=== PATIENT | female | born 1950 | race Caucasian/White ===

== ENCOUNTER 2023-05-31 05:46 | Emergency (ER) | payer MEDICARE, SELFPAY ==
[2023-05-31] VITALS (11 sets, daily range): BP systolic 89–144; BP diastolic 56–99; BMI 21.1
--- NOTE | 2023-05-31 06:32 | ED.GENMED ---
History of Present Illness
General
Chief Complaint: Swelling
Source: patient
Exam Limitations: none
Time Seen by Provider: 05/31/23 06:07
Travel History
Have you had any contact with someone who has COVID-19?: No
Do you have any symptoms of coronavirus? Fever > 100 degrees, chills, cough, shortness of breath, sore throat, loss of taste or smell, muscle aches, or headache?: No
History of Present Illness
History of Present Illness:
72-year-old female complaining of significant drainage right greater than left leg the last few days. Some mild ache to the right leg. Has been on prednisone recently for respiratory issues. Currently on 20 extra milligrams. Takes 10 mg at
baseline. Also complaining of some general headache. Denies chest pain shortness of breath fever.
Past History
Past History
ED Past Medical History: COPD and Other (anemia, RA,)
ED Past Surgical History: , Gynecological, Orthopedic and Other (Dental surgery)
Social History
Tobacco: Former smoker
Personal:
Review of Systems
Review of Systems
All Other Systems: Not applicable
Respiratory: Reports no symptoms
Cardiac: Reports no symptoms
ABD/GI: Reports no symptoms
Phy Exam
Physical Exam
Physical Exam:
GENERAL: Alert and oriented in no apparent distress. Currently on a 2 L nasal cannula
EYE: Orbits normal.
NECK: Supple
CARDIAC: Regular rate and rhythm without any obvious murmurs.
LUNGS: No respiratory distress. Distant. No wheezing or rhonchi
ABDOMEN: Soft, without focal tenderness or distention
NEUROLOGICAL: Alert and oriented , grossly non-focal
SKIN: Warm and dry, no rash or lesion, no discoloration, skin intact.
MUSCULOSKELETAL: Shininess and no hair to either lower extremity. Chronic venous changes. Small open wound anteriorly to the left leg with a scab. No drainage from this wound. Right leg has significant bruising serous in nature. In addition the
right foot is cool compared to the left with pallor. However there are Doppler pulses posterior tibial and dorsalis pedis bilaterally. Right leg is weaker than the left.
PSYCH: Normal and appropriate interaction.
Scores
Heart Failure Risk
Heart Failure Risk Score: Not Applicable
Course
Orders/Labs/Results
Orders:
Orders
05/31/23 06:21
IV Insert/Care/Rem.- Treatment PRN
CXR2 [CR Chest - 2 Views ] Urgent
Comment:
Reason For Exam: lower ext. swelling
05/31/23 06:22
CT Head W/o Iv Contrast Urgent
Comment:
Reason For Exam: CEBALLOS
05/31/23 06:28
Basic Metabolic Panel Urgent
Complete Blood Count/With Diff Urgent
05/31/23 06:55
US Periph Art LOWER Ext Ltd Urgent
Reason For Exam: Coolness paleness right lower extremity
US Periph Venous LOWER Ext [place] Urgent
Comment:
Reason For Exam: swelling/drainage
05/31/23 07:01
Acetaminophen [Tylenol] 650 mg PO NOW STA
05/31/23 13:59
Add On- LAB Urgent
Tests Added?: theophylline level
05/31/23 14:58
Doxycycline [Vibramycin] 100 mg PO NOW STA
05/31/23 14:59
Furosemide [Lasix] 40 mg IV ONCE ONE
Abnormal Lab Results
05/31/23
06:28
RBC 4.09 L 10^6/uL
(4.20-5.40)
MCHC 31.2 L g/dL
(33.0-37.0)
MPV 10.7 H fL
(7.4-10.4)
Absolute Lymphs (auto) 0.6 L 10^3/uL
(1.2-3.4)
Absolute Monos (auto) 1.2 H 10^3/uL
(0.1-0.6)
Lymphocytes % 7.6 L %
(20.5-51.1)
Monocytes % 14.9 H %
(1.7-9.3)
Carbon Dioxide 37 H mmol/L
(22-30)
BUN 24 H mg/dl
(7-17)
Creatinine 0.4 L mg/dL
(0.6-1.0)
Glucose 142 H mg/dl
(70-99)
05/31/23 06:28
05/31/23 06:28
Vital Signs
Initial and Last Documented VS:
Initial Vital Signs
Temp Pulse Resp BP Pulse Ox
97.8 F 120 24 144/78 95
05/31/23 05:49 05/31/23 05:49 05/31/23 05:49 05/31/23 05:49 05/31/23 05:49
Last Documented Vital Signs
Temp Pulse Resp BP Pulse Ox
97.8 F 120 24 142/99 99
05/31/23 05:49 05/31/23 05:49 05/31/23 05:49 05/31/23 14:04 05/31/23 14:54
*Critical Care Note
Total Time (30-74mins, 75-104mins- exclusive of procedures): Not Applicable
Update Note
Update Note:
Interestingly patient's leg edema is much improved and the lower foot is warm. Arterial studies okay. Venous studies negative. No obvious infectious issue although there is some very minimal erythema at one border. Most of it is chronic
hyperpigmentation. No indication for admission. Patient will increase her torsemide for the next 3 days. Will give her a dose of IV Lasix. With antibiotics and follow-up with the lymphedema clinic
ED Attending Note
-
Portions of this chart may have been created with voice recognition software.� Occasional wrong word or��sound alike� substitutions may have occurred due to the inherent limitations of voice recognition software.
Discharge Plan
Departure
Patient Disposition: Home (Routine Discharge)
Date of Disposition: 05/31/23
Time of Disposition: 15:00
Patient with high blood pressure during this ER visit?: Yes
Discharge Problem:
Peripheral lymphedema, History of COPD
Instructions: Dependent Edema (DC), BLOOD PRESSURE
Prescriptions:
New
doxycycline hyclate 100 mg capsule
100 mg PO BID 10 Days Qty: 20 0RF
Referrals:
Odalis Maldonado, [Family Provider] - Follow up in 2-3 days
Activity Restrictions/Additional Instructions:
As we discussed, call the lymphedema clinic tomorrow for close follow-up
Keep your legs elevated is much as you can
Take the torsemide twice per day for the next 3 days
Interventions
Interventions:
*Risk Screen - Suicide Last Done: 05/31/23 05:49
*General Assessment Last Done: 05/31/23 07:10
*Neglect/Abuse Screening Last Done: 05/31/23 05:49
*ED COVID-19 Vaccine History Last Done: 05/31/23 06:35
ED- Cardiac Assessment Last Done: 05/31/23 06:31
ED- Neurological Assessment Last Done: 05/31/23 06:31
ED- Pulmonary Assessment Last Done: 05/31/23 06:31
ED-Skin Assessment Last Done: 05/31/23 06:31
[2023-05-31 06:48] LABS: % Basophils 0.7 % (0-2); % Eosinophils 1.6 % (0-6); % Immature Granulocytes 0.5 % (0-0.5); % Lymphocytes 7.6 % (20.5-51.1); % Monocytes 14.9 % (1.7-9.3); % Neutrophils 74.7 % (42.2-75.2); Absolute Basophils 0.1 10^3/uL (0-0.2); Absolute Eosinophils 0.1 10^3/uL (0-0.7); Absolute Lymphocytes 0.6 10^3/uL (1.2-3.4); Absolute Monocytes 1.2 10^3/uL (0.1-0.6); Hematocrit 39.8 % (37.0-47.0); Hemoglobin 12.4 g/dL (12.0-16.0); Mean Corp Hgb Conc. 31.2 g/dL (33.0-37.0); Mean Corpuscular Hgb 30.3 pg (27.0-31.0); Mean Corpuscular Volume 97.3 fL (81.0-99.0); Mean Platelet Volume 10.7 fL (7.4-10.4); Nucleated Red Blood Cells % 0 %; Platelet Count 145 10^3/uL (130-400); Red Blood Cell Count 4.09 10^6/uL (4.20-5.40); Red Cell Dist. Width 14.1 % (11.5-14.5)
[2023-05-31 07:02] LABS: Blood Urea Nitrogen 24 mg/dl (7-17); Chloride 99 mmol/L (98-107); Estimated Creatinine Clearance 62 ml/min; Glucose 142 mg/dl (70-99); Sodium 138 mmol/L (135-145); eGFR > 60.00
[2023-05-31 07:13] LABS: Carbon Dioxide 37 mmol/L (22-30)
[2023-05-31] MEDS: TYLENOL 650 MG PO (07:39)
[2023-05-31] MEDS: VIBRAMYCIN 100 MG PO (15:10)
[2023-05-31] MEDS: LASIX 40 MG IV (15:10)
--- NOTE | 2023-05-31 15:18 | PTCARENOTE ---
Patient discharged, this RN was removing this patient's IV and tegaderm. This RN removed tegaderm as slowly and as carefully as possible while holding pressure on the skin to attempt prevent skin tear. While removing, this patient expressed concern
for a skin tear. This RN stopped removing the tegaderm and asked the patient if she wanted this RN to keep tegaderm on or if she had any suggestions of another way to remove the tegaderm. This RN expressed that the tegaderm was being removed as
carefully and slowly as possible but open to suggestions. She said 'I guess if you need to remove the IV you have to keep going then.' After removing the tegaderm, there was a skin tear and patient became very upset and agitated demanding to see a
doctor. Patient claimed that this RN did not stop removing the tegaderm when asked to. It was explained to patient that this RN did the best to prevent a skin tear and did pause when asked to, and that it was not intentional. She than aggressively
told her to take a picture of the skin tear. Patient states that she needs wound care now and demanded that the doctor look at the skin care. This RN told the patient that a doctor will be in to take a look at the skin tear and walked out of
the room. Dr. Burnette at bedside now. This RN will ask that another RN to assume patient care until discharge, and alert charge nurse.
== END 2023-05-31 16:57 | disposition home or self-care (01) ==
LOC: EMR 05:46
PROVIDERS: EMERGENCY PHYSICIAN Emergency Medicine; FAMILY PHYSICIAN Family Medicine
DX: I89.0 Lymphedema, not elsewhere classified (principal); J44.9 Chronic obstructive pulmonary disease, unspecified; Z87.891 Personal history of nicotine dependence
CPT/HCPCS: 99284; 96374; 70450; 71046; 80048; 85025; 93926; 93970

== ENCOUNTER 2023-06-06 15:11 | Emergency (ER) | payer MEDICARE, SELFPAY ==
[2023-06-06 15:45] VITALS: BP 128/67
[2023-06-06 16:16] LABS: % Basophils 0.6 % (0-2); % Eosinophils 1.8 % (0-6); % Immature Granulocytes 0.5 % (0-0.5); % Monocytes 14.4 % (1.7-9.3); % Neutrophils 77.7 % (42.2-75.2); Absolute Basophils 0.1 10^3/uL (0-0.2); Absolute Eosinophils 0.1 10^3/uL (0-0.7); Absolute Lymphocytes 0.4 10^3/uL (1.2-3.4); Absolute Monocytes 1.2 10^3/uL (0.1-0.6); Absolute Neutrophils 6.2 10^3/uL (1.4-6.5); Hematocrit 36.9 % (37.0-47.0); Hemoglobin 11.7 g/dL (12.0-16.0); Mean Corp Hgb Conc. 31.7 g/dL (33.0-37.0); Mean Corpuscular Hgb 30.8 pg (27.0-31.0); Mean Corpuscular Volume 97.1 fL (81.0-99.0); Mean Platelet Volume 10.1 fL (7.4-10.4); Nucleated Red Blood Cells % 0 %; Platelet Count 145 10^3/uL (130-400)
[2023-06-06 16:30] LABS: ALT (SGPT) 34 U/L (0-35); AST (SGOT) 39 U/L (14-36); Albumin 3.3 g/dl (3.5-5.0); Alkaline Phosphatase 93 U/L (38-126); Blood Urea Nitrogen 20 mg/dl (7-17); Calcium 8.8 mg/dl (8.4-10.2); Carbon Dioxide 38 mmol/L (22-30); Chloride 99 mmol/L (98-107); Glucose 133 mg/dl (70-99); Potassium 3.7 mmol/L (3.5-5.1); Sodium 140 mmol/L (135-145); Total Bilirubin 0.4 mg/dl (0.2-1.3); Total Protein 5.2 g/dl (6.3-8.2); eGFR > 60.00
[2023-06-06 16:39] LABS: NT-proBNP 246 pg/ml
[2023-06-06 19:50] VITALS: BP 158/79; BMI 21.7
[2023-06-06 20:00] VITALS: BP 152/82
[2023-06-06 21:00] VITALS: BP 113/60
--- NOTE | 2023-06-06 21:15 | EDRN ---
Report recieved, patients asking the plan, informed them waiting on Ed, PA to look over results and plan
[2023-06-06 22:00] VITALS: BP 174/75
--- NOTE | 2023-06-06 22:15 | EDRN ---
Ed, PA in at bedside speaking with family about plan.
--- NOTE | 2023-06-06 22:29 | ED.GENMED ---
History of Present Illness
General
Chief Complaint: Fall
Source: patient
Exam Limitations: none
Time Seen by Provider: 06/06/23 19:08
Nursing documentation reviewed up to this point in time: agreed with
Travel History
Have you had any contact with someone who has COVID-19?: No
Do you have any symptoms of coronavirus? Fever > 100 degrees, chills, cough, shortness of breath, sore throat, loss of taste or smell, muscle aches, or headache?: No
History of Present Illness
History of Present Illness:
72-year-old female with past medical history of COPD migraines presenting to the emergency department today with concerns of right-sided leg discomfort. Did feel some discomfort to the right calf region some mild discomfort when walking. Claims
that she may have injured this with a ground-level fall a few days ago. Denies any head trauma neck pain numbness weakness or additional concerns otherwise
Past History
Past History
ED Past Medical History: COPD and Other (anemia, RA,)
ED Past Surgical History: , Gynecological, Orthopedic and Other (Dental surgery)
Social History
Tobacco: Former smoker
Personal:
Review of Systems
Review of Systems
Allergies reviewed?: Yes
All Other Systems: ROS reviewed and negative except as documented in HPI and ROS
Phy Exam
Physical Exam
Physical Exam:
GENERAL: Alert , in no apparent distress
EYE: pupils equal and reactive
NECK: Supple, no significant adenopathy.
ENT: o/p clr, mmm.
CARDIAC: Regular rate and rhythm .
LUNGS: Clear breath sounds bilaterally, no acute respiratory distress, no wheezes/rales/rhonchi
ABDOMEN: Soft, without focal tenderness, no r/g, no cvat
NEUROLOGICAL: Alert and oriented, no focal neuro deficits
SKIN: Warm and dry, skin intact.
MUSCULOSKELETAL: Discomfort to the right gastrocnemius Achilles intact, good range of motion of the ankle and knee. Swelling symmetrical bilaterally., well perfused.
PSYCH: Normal and appropriate interaction.
Course
Orders/Labs/Results
Orders:
Orders
06/06/23 15:52
Tib/Fib, Right 2 View [CR Leg Tibia/fibula Right 2 Vw] Urgent
Comment:
Reason For Exam: pain after a fall
06/06/23 15:58
Complete Blood Count/With Diff Urgent
Comprehensive Metabolic Panel Urgent
Pro-BNP [NT-proBNP] Urgent
Abnormal Lab Results
06/06/23
15:58
RBC 3.80 L 10^6/uL
(4.20-5.40)
Hgb 11.7 L g/dL
(12.0-16.0)
Hct 36.9 L %
(37.0-47.0)
MCHC 31.7 L g/dL
(33.0-37.0)
Absolute Lymphs (auto) 0.4 L 10^3/uL
(1.2-3.4)
Absolute Monos (auto) 1.2 H 10^3/uL
(0.1-0.6)
Neutrophils % 77.7 H %
(42.2-75.2)
Lymphocytes % 5.0 L %
(20.5-51.1)
Monocytes % 14.4 H %
(1.7-9.3)
Carbon Dioxide 38 H mmol/L
(22-30)
BUN 20 H mg/dl
(7-17)
Creatinine 0.3 L mg/dL
(0.6-1.0)
Glucose 133 H mg/dl
(70-99)
AST 39 H U/L
(14-36)
Total Protein 5.2 L g/dl
(6.3-8.2)
Albumin 3.3 L g/dl
(3.5-5.0)
01/27/24 15:58
06/06/23 15:58
Vital Signs
Initial and Last Documented VS:
Initial Vital Signs
Temp Pulse Resp BP Pulse Ox
98.0 F 111 20 128/67 98
06/06/23 15:45 06/06/23 15:45 06/06/23 15:45 06/06/23 15:45 06/06/23 15:45
Last Documented Vital Signs
Temp Pulse Resp BP Pulse Ox
98.0 F 105 20 174/75 97
06/06/23 15:45 06/06/23 20:01 06/06/23 15:45 06/06/23 22:00 06/06/23 22:26
MDM/Problems Addressed
MDM/Problems Addressed:
72-year-old female presenting to the emergency department today with concerns of right-sided calf discomfort after ground-level fall few days ago denies additional injuries. Does have tenderness to the gastrocnemius but Achilles intact x-ray
without signs of fracture good range of motion at the knee and ankle. Patient without emergent findings. Labs were obtained that showed findings consistent with chronic abnormalities that she has had in the past. Otherwise stable for outpatient
management return precautions given.
*Critical Care Note
Total Time (30-74mins, 75-104mins- exclusive of procedures): Not Applicable
ED Attending Note
-
Portions of this chart may have been created with voice recognition software.� Occasional wrong word or��sound alike� substitutions may have occurred due to the inherent limitations of voice recognition software.
Discharge Plan
Departure
Patient Disposition: Home (Routine Discharge)
Date of Disposition: 06/06/23
Time of Disposition: 22:29
Patient with high blood pressure during this ER visit?: No
Condition: Good
Covid-19: Not Applicable
Discharge Problem:
Gastrocnemius muscle strain
Instructions: Muscle Strain (DC)
Prescriptions:
No Action
doxycycline hyclate 100 mg capsule
100 mg PO BID 10 Days Qty: 20 0RF
Referrals:
Odalis Maldonado DO [Family Provider] -
Activity Restrictions/Additional Instructions:
You came to the emergency department today with concerns of right-sided leg discomfort. Your x-ray did not show any fracture or bony injury. You had a reassuring examination. Please ambulate as tolerated and follow up with orthopedics. Return to
the emergency department any worsening, new or concerning symptoms.
Interventions
Interventions:
*Nursing Disposition Last Done: 06/06/23 23:18
ED-Musculoskeletal Assessment Last Done: 06/06/23 19:51
ED- Neurological Assessment Last Done: 06/06/23 19:51
ED-Skin Assessment Last Done: 06/06/23 19:51
Discharge Date and Time
Discharge Date/Time: 06/06/23 23:19
== END 2023-06-06 23:19 | disposition home or self-care (01) ==
LOC: EMR 15:11
PROVIDERS: Student in an Organized Health Care Education/Training Program; EMERGENCY PHYSICIAN Emergency Medicine; FAMILY PHYSICIAN Family Medicine
DX: S76.911A Strain of unspecified muscles, fascia and tendons at thigh level, right thigh, initial encounter (principal); W19.XXXA Unspecified fall, initial encounter; Y93.01 Activity, walking, marching and hiking; J44.9 Chronic obstructive pulmonary disease, unspecified; D64.9 Anemia, unspecified; M06.9 Rheumatoid arthritis, unspecified; Z87.891 Personal history of nicotine dependence
CPT/HCPCS: 99283; 73590; 80053; 83880; 85025

== ENCOUNTER 2023-06-11 16:06 | Emergency (ER) | payer MEDICARE, SELFPAY ==
[2023-06-11 16:07] VITALS: BP 153/87
[2023-06-11 16:48] VITALS: BP 143/72; BMI 21.7
[2023-06-11 17:00] VITALS: BP 165/87
--- NOTE | 2023-06-11 17:23 | ED.GENMED ---
History of Present Illness
General
Chief Complaint: Fall
Source: patient and records
Time Seen by Provider: 06/11/23 16:38
Travel History
Have you had any contact with someone who has COVID-19?: No
Do you have any symptoms of coronavirus? Fever > 100 degrees, chills, cough, shortness of breath, sore throat, loss of taste or smell, muscle aches, or headache?: No
History of Present Illness
History of Present Illness:
2-year-old female with past medical history of COPD presenting to the emergency department for a multitude of concerns centered around an accidental fall last night while she was sitting on the toilet changing the dressings on her lower extremities
and accidentally fell forward into the shower door injuring the left frontal scalp. Patient notes some bruising around the affected area but otherwise denies any loss consciousness, vomiting, visual changes, focal weakness or numbness. Patient
does note a 'migraine headache' but states that this is a typical headache for her and she is attributing it to stress related to current family related issues. Patient notes she also sustained abrasion/skin tear to the left upper extremity around
the lower humeral region and elbow. Patient does note 1/3 concern of lower extremity edema with clear fluid weeping which has been ongoing for the last few days, patient notes that she was seen in the emergency department about a week and a half
ago for this and was worked up without any specific etiology and it was thought to be related to lymphedema. Patient increased her torsemide at home and was given an IV dose of Lasix in the emergency department. She does note that she has been
covering the lower extremities with bags in order to contain the fluid weeping. Patient notes that the weeping has not gotten any better or worse and it is mostly unchanged.
Past History
Past History
ED Past Medical History: COPD and Other (anemia, RA,)
ED Past Surgical History: , Gynecological, Orthopedic and Other (Dental surgery)
Social History
Tobacco: Former smoker
Alcohol: None
Drug: None
Personal:
Living: with family
Review of Systems
Review of Systems
All Other Systems: ROS reviewed and negative except as documented in HPI and ROS
Phy Exam
Physical Exam
Physical Exam:
GENERAL: Alert , in no apparent distress, ambulatory with steady gait
Head: Small contusion left frontal scalp with no breaks in the skin
EYE: Clear conjunctiva
NECK: Supple
ENT: o/p clr, mmm.
CARDIAC: Regular rate and rhythm .
LUNGS: Clear breath sounds bilaterally, no acute respiratory distress, no wheezes/rales/rhonchi
ABDOMEN: Soft, without focal tenderness, no r/g, no cvat
NEUROLOGICAL: Alert and oriented, ambulates with a steady gait
SKIN: Warm and dry, bilateral lower extremity edema with loss of hair, various small to moderate-sized superficial wounds on the bilateral lower extremities. Right lower extremity has clear weeping fluid from the anterior surface of the leg. The
lower extremities are dusky in appearance bilaterally. Dressing over the distal humeral region
MUSCULOSKELETAL: Cap refill less than 2 seconds. Sensation grossly intact to light touch.
PSYCH: Normal and appropriate interaction.
Scores
Heart Failure Risk
Heart Failure Risk Score: Not Applicable
Heart Score for Chest Pain Patients
STEMI patient?: Not applicable
Withdrawal Assessment of Alcohol
Withdrawal Assessment Completed?: Not applicable
Course
Orders/Labs/Results
Orders:
Orders
06/11/23 16:55
EKG [Electrocardiogram (*1)] Urgent
Reason for Study: Tachycardia
EKG- Treatment ONCE
06/11/23 16:57
CT Head W/o Iv Contrast Urgent
Comment:
Reason For Exam: fall, head injury, contusion left frontal scalp
06/11/23 17:06
CR Elbow - Left Min 3 Views Urgent
Comment:
Reason For Exam: fall, pain
CR Humerus - Left Min 2 Views* Urgent
Comment:
Reason For Exam: fall, injury
06/11/23 17:44
Basic Metabolic Panel Urgent
06/11/23 18:36
Sling Left-Treatment ONCE
Abnormal Lab Results
06/11/23
17:44
Carbon Dioxide 35 H mmol/L
(22-30)
BUN 23 H mg/dl
(7-17)
Creatinine 0.4 L mg/dL
(0.6-1.0)
Glucose 120 H mg/dl
(70-99)
06/11/23 17:44
Vital Signs
Initial and Last Documented VS:
Initial Vital Signs
Temp Pulse Resp BP Pulse Ox
98.4 F 127 22 153/87 98
06/11/23 16:07 06/11/23 16:07 06/11/23 16:07 06/11/23 16:07 06/11/23 16:07
Last Documented Vital Signs
Temp Pulse Resp BP Pulse Ox
98.4 F 113 20 149/89 99
06/11/23 16:07 06/11/23 19:00 06/11/23 19:00 06/11/23 18:39 06/11/23 18:45
Stripping And Booking Machine Operator consulted with Physician
Stripping And Booking Machine Operator consulted with physician?: Yes
Name of Physician Consulted: Tereso
MDM/Problems Addressed
Differential Diagnosis Includes:
Superficial head injury, minimal concern for intracranial pathology or calvarial fracture, chronic venous stasis, chronic lymphedema, I do not have concern for DVT or acute arterial complication given patient had an ultrasound and arterial studies
done of the left lower extremity less than 10 days ago without any significant pathology found.
MDM/Problems Addressed:
72-year-old female presenting to the emergency department for a multitude of symptoms but her main concern was due to the head injury sustained an accidental fall last night. Overall I do suspect a minor head injury without any significant
complication. Will also obtain an x-ray of the upper extremity at patient's request as I am not very concerned for fracture given patient has full range of motion and has not had any significant pain to the left upper extremity. Will check a BMP
to make sure patient does not have any electrolyte disturbances given her fluid overload as well as increase in her diuretics. Patient was also noted to be tachycardic and an EKG was done for this.
Chronic conditions affecting care: COPD and Other (Chronic lymphedema)
Acute Exacerbation and/or Progression of Chronic Illness: Other (Chronic lymphedema)
*Radiology
Radiology exam reviewed: radiology read reviewed
*Pulse Oximetry
Patient hypoxic: no
*EKG
Interpreted by ED Provider?: Yes
Comparison EKG: no comparison EKG present
Heart Rate: 115
Rate: tachycardiac
Rhythm: sinus and PAC's
[place]: normal axis
Ischemia: no ischemia
*Box Car Washer Interpretation
Rate: tachycardiac
Rhythm: sinus and PAC's
*Critical Care Note
Total Time (30-74mins, 75-104mins- exclusive of procedures): Not Applicable
Data Reviewed
Review of Other/Old Records Reveals: Labs, Records and Radiology Studies
Patient Management
Escalation/DeEscalation of care consider admission/obs:
Patient CT imaging without any acute pathology. Her x-ray of the elbow does show a questionable humeral head avulsion injury. Will place in a sling for comfort. I did advise patient to follow-up as scheduled with the lymphedema clinic. She will
follow-up with her orthopedist. She will also continue following with the wound care center. Aware of return precautions but otherwise stable for discharge home.
ED Attending Note
-
Portions of this chart may have been created with voice recognition software.� Occasional wrong word or��sound alike� substitutions may have occurred due to the inherent limitations of voice recognition software.
Discharge Plan
Departure
Patient Disposition: Home (Routine Discharge)
Date of Disposition: 06/11/23
Time of Disposition: 18:37
Patient with high blood pressure during this ER visit?: Yes
Discharge Problem:
Accidental fall, radial head avulsion fracture left, Contusion of scalp, Lymphedema
Prescriptions:
No Action
doxycycline hyclate 100 mg capsule
100 mg PO BID 10 Days Qty: 20 0RF
Referrals:
UNKNOWN - PT DOES,NOT KNOW [Unknown Provider] -
Interventions
Interventions:
*Risk Screen - Suicide Last Done: 06/11/23 16:57
*General Assessment Last Done: 06/11/23 16:07
*Neglect/Abuse Screening Last Done: 06/11/23 17:18
ED- Fall Risk Assessment Last Done: 06/11/23 16:57
*ED COVID-19 Vaccine History Last Done: 06/11/23 16:07
ED-Musculoskeletal Assessment Last Done: 06/11/23 16:52
ED- Neurological Assessment Last Done: 06/11/23 16:52
ED-Skin Assessment Last Done: 06/11/23 16:57
[2023-06-11 18:06] LABS: Blood Urea Nitrogen 23 mg/dl (7-17); Calcium 8.5 mg/dl (8.4-10.2); Chloride 98 mmol/L (98-107); Estimated Creatinine Clearance 62 ml/min; Glucose 120 mg/dl (70-99); Potassium 4.1 mmol/L (3.5-5.1); Sodium 138 mmol/L (135-145); eGFR > 60.00
[2023-06-11 18:17] LABS: Carbon Dioxide 35 mmol/L (22-30)
[2023-06-11 18:39] VITALS: BP 149/89
== END 2023-06-11 19:30 | disposition home or self-care (01) ==
LOC: EMR 16:06
PROVIDERS: Physician Assistant Medical; EMERGENCY PHYSICIAN Emergency Medicine; FAMILY PHYSICIAN Family Medicine
DX: S52.122A Displaced fracture of head of left radius, initial encounter for closed fracture (principal); S00.03XA Contusion of scalp, initial encounter; I89.0 Lymphedema, not elsewhere classified; W19.XXXA Unspecified fall, initial encounter; J44.9 Chronic obstructive pulmonary disease, unspecified; D64.9 Anemia, unspecified; M06.9 Rheumatoid arthritis, unspecified; Z87.891 Personal history of nicotine dependence
CPT/HCPCS: 99284; 70450; 73060; 73080; 80048; 93005

== ENCOUNTER 2023-06-26 23:42 | Inpatient (IN) | payer MEDICARE, SELFPAY ==
[2023-06-26 18:54] VITALS: BMI 22.0
[2023-06-26 18:58] VITALS: BP 125/81
[2023-06-26 19:20] LABS: % Basophils 0.8 % (0-2); % Eosinophils 0.8 % (0-6); % Immature Granulocytes 1.2 % (0-0.5); % Lymphocytes 4.7 % (20.5-51.1); % Monocytes 9.1 % (1.7-9.3); % Neutrophils 83.4 % (42.2-75.2); Absolute Basophils 0.1 10^3/uL (0-0.2); Absolute Eosinophils 0.1 10^3/uL (0-0.7); Absolute Immature Granulocytes 0.2 10^3/uL (0-0.05); Absolute Lymphocytes 0.7 10^3/uL (1.2-3.4); Absolute Monocytes 1.3 10^3/uL (0.1-0.6); Absolute Neutrophils 11.9 10^3/uL (1.4-6.5); Hematocrit 36.8 % (37.0-47.0); Hemoglobin 11.4 g/dL (12.0-16.0); Mean Corpuscular Hgb 30.8 pg (27.0-31.0); Mean Corpuscular Volume 99.5 fL (81.0-99.0); Mean Platelet Volume 9.6 fL (7.4-10.4); Nucleated Red Blood Cells % 0 %; Platelet Count 250 10^3/uL (130-400); Red Cell Dist. Width 14.1 % (11.5-14.5); White Blood Cell Count 14.2 10^3/uL (4.8-10.8)
[2023-06-26 19:39] LABS: ALT (SGPT) 26 U/L (0-35); AST (SGOT) 33 U/L (14-36); Albumin 3.2 g/dl (3.5-5.0); Alkaline Phosphatase 135 U/L (38-126); Blood Urea Nitrogen 19 mg/dl (7-17); Calcium 8.8 mg/dl (8.4-10.2); Chloride 95 mmol/L (98-107); Glucose 230 mg/dl (70-99); Potassium 4.4 mmol/L (3.5-5.1); Sodium 134 mmol/L (135-145); Total Bilirubin 0.5 mg/dl (0.2-1.3); Total Protein 5.3 g/dl (6.3-8.2); eGFR > 60.00
[2023-06-26 19:43] LABS: NT-proBNP 374 pg/ml; Troponin I < 0.012 ng/ml
[2023-06-26 19:49] LABS: Carbon Dioxide 36 mmol/L (22-30)
[2023-06-26 20:34] VITALS: BP 128/60
[2023-06-26 21:00] VITALS: BP 100/47
--- NOTE | 2023-06-26 21:20 | ED.GENMED ---
History of Present Illness
General
Chief Complaint: Swelling
Source: patient
Exam Limitations: none
Time Seen by Provider: 06/26/23 20:34
Travel History
Have you had any contact with someone who has COVID-19?: No
Do you have any symptoms of coronavirus? Fever > 100 degrees, chills, cough, shortness of breath, sore throat, loss of taste or smell, muscle aches, or headache?: No
History of Present Illness
History of Present Illness:
This is a 72 year old female that comes in with c/o bleeding from the left lower leg. States that she was at the [facility] twice in the past month. states that there is a lot of fluid build up on her legs and he wanted her to come to the
hospital. Sate that she does not want to come to the hospital as her daughter is in [facility] and has been very sick for the past 2 months. States that she was put on Lorazepam 2mg QID but she only takes this daily. Today she sent to change
the bandages on her legs when she started to have bleeding from the left lower leg. States that this happened 2 weeks ago. States that it took her over an hour to get the bleeding to stop. States that the [employer] Artist also put her on Keflex as he
thought the right leg looked infected. States that she started this 2 days ago. States that she has had a headache and she is always SOB. Denies any fever, chills, chest pain, abd pain, nausea, vomiting, diarrhea, dizziness, urinary burning.
Past History
Past History
ED Past Medical History: COPD (emphysema) and Other (anemia, RA, Migraines, )
ED Past Surgical History: , Gynecological (Hysterectomy, Fibroid removed, ), Orthopedic (Right wrist surgery, Left tibial fracture) and Other (Dental surgery cataracts, )
Social History
Tobacco: Former smoker
Alcohol: None
Drug: None
Personal:
Living: with family
Review of Systems
Review of Systems
All Other Systems: ROS reviewed and negative except as documented in HPI and ROS
Constitutional: Reports no symptoms; Denies fever or chills
EENT: Reports no symptoms
Respiratory: Reports trouble breathing; Denies cough
Cardiac: Reports no symptoms; Denies chest pain
ABD/GI: Reports no symptoms; Denies abdominal pain, nausea, vomiting or diarrhea
: Reports no symptoms; Denies dysuria, frequency or urgency
Musculoskeletal: Reports edema (Chronic leg edema)
Skin: Reports other (bleeding from left lower leg)
Neurological: Reports headache; Denies dizzy
Psychiatric: Reports no symptoms
Phy Exam
General Physical Exam
General Presentation: no apparent distress
General age: appears stated age
General Skin: warm and dry
General Habitus: elderly
General Mental: alert
General Hydration: appears well hydrated
ENT Exam
ENT Exam: TM's normal, pharynx normal and neck supple
Eye Exam
Eye Exam: EOMI
Cardiovascular Exam
Cardiovascular Exam: regular rate/rhythm and normal peripheral pulses
Pulmonary Exam
Pulmonary Exam: no respiratory distress, chest non tender, no rhonchi, decreased breath sounds and other (Fine rales at bases with exp wheezing throughout)
Gastrointestinal Exam
Gastrointestinal Exam: normal bowel sounds, non tender, soft, no organomegaly, no pulsatile mass and non distended
Musculoskeletal Exam
Musculoskeletal Exam: full ROM and edema (pitting edema of the feet and lower legs. Small open area that is not bleeding at this time on the left mid roper. Open cracked skin on the right heel )
Skin Exam
Skin Exam: normal color, warm/dry, no petechia and redness (Of the right lower leg )
Psychiatric Exam
Psychiatric Exam: anxious
Scores
Heart Failure Risk
Heart Failure Risk Score: Not Applicable
Course
Orders/Labs/Results
Orders:
Orders
06/26/23 19:03
Electrocardiogram (*1) Urgent
Reason for Study: Other
Other Reason for Exam: Respiratory Distress
EKG- Treatment ONCE
O2 Therapy [RESP] Urgent
Titrate/Wean O2 to maintain O2 sat greater than (%): 93
Special Instructions: TO MAINTAIN CONTINUOUS O2 SATS >/= 93%
Pulse Ox/cont/shift [RESP] Urgent
Quantity: 1
Special Instructions: continuous pulse ox
06/26/23 19:13
Complete Blood Count/With Diff Urgent
Comprehensive Metabolic Panel Urgent
NT-proBNP Urgent
Troponin I Urgent
06/26/23 21:20
CR Chest - 2 Views Urgent
Comment:
Reason For Exam: SOB, rales
06/26/23 23:02
Vancomycin 1000 mg IVPB NOW Vancomycin 1 Gram/200 ml [Vancocin] 1 gram in 200 ml IV NOW
Zosyn 3.375 grams IVPB NOW Piperacillin/Tazo 3.375 Gram [Zosyn] 3.375 gram in 50 ml IV NOW
Abnormal Lab Results
06/26/23
19:13
WBC 14.2 H 10^3/uL
(4.8-10.8)
RBC 3.70 L 10^6/uL
(4.20-5.40)
Hgb 11.4 L g/dL
(12.0-16.0)
Hct 36.8 L %
(37.0-47.0)
MCV 99.5 H fL
(81.0-99.0)
MCHC 31.0 L g/dL
(33.0-37.0)
Abs Immat Gran (auto) 0.2 H 10^3/uL
(0-0.05)
Absolute Neuts (auto) 11.9 H 10^3/uL
(1.4-6.5)
Absolute Lymphs (auto) 0.7 L 10^3/uL
(1.2-3.4)
Absolute Monos (auto) 1.3 H 10^3/uL
(0.1-0.6)
Immature Gran % 1.2 H %
(0-0.5)
Neutrophils % 83.4 H %
(42.2-75.2)
Lymphocytes % 4.7 L %
(20.5-51.1)
Sodium 134 L mmol/L
(135-145)
Chloride 95 L mmol/L
(98-107)
Carbon Dioxide 36 H mmol/L
(22-30)
BUN 19 H mg/dl
(7-17)
Creatinine 0.4 L mg/dL
(0.6-1.0)
Glucose 230 H mg/dl
(70-99)
Alkaline Phosphatase 135 H U/L
(38-126)
Total Protein 5.3 L g/dl
(6.3-8.2)
Albumin 3.2 L g/dl
(3.5-5.0)
06/26/23 19:13
06/26/23 19:13
Leukocytosis ( patient is on steroids), H/H low but consistent with prior labs from May, Anemia, Chloride slightly low. carbon dioxide elevated. Slight Dehydration. Glucose nonfasting. Alk phos mildly elevated. Total protein low. Albumin
slightly low. Troponin <0.012, Pro-BNP 374
Vital Signs
Initial and Last Documented VS:
Initial Vital Signs
Temp Pulse Resp BP Pulse Ox
98.2 F 73 19 125/81 96
06/26/23 18:58 06/26/23 18:58 06/26/23 18:58 06/26/23 18:58 06/26/23 18:58
Last Documented Vital Signs
Temp Pulse Resp BP Pulse Ox
98.2 F 104 17 107/60 100
06/26/23 18:58 06/26/23 21:45 06/26/23 21:45 06/26/23 21:37 06/26/23 21:45
MDM/Problems Addressed
Differential Diagnosis Includes:
Cellulitis, dependent edema. Superficial blood vessel rupture
MDM/Problems Addressed:
This is a 72 year old female that comes in with c/o bleeding from the left lower leg today. Patient states that she also has increased edema of the legs and has also been taking an antibiotic for 2 days for possible infection of the right lower leg.
Will get labs, Chest x-ray
back into see patient. Patient at this time agrees to admission. Explained that her Chest x-ray is normal but feel that her right lower leg has cellulitis and this needs IV antibiotics. Patient states that she will stay as she feels that the
redness is getting worse. Hospitalist notified.
Chronic conditions affecting care: COPD
Acute Exacerbation and/or Progression of Chronic Illness: Other (Chronic leg edema)
*Radiology
Radiology exam reviewed: preliminary read by ED provider (Chest- negative for active disease)
*Pulse Oximetry
Patient hypoxic: no
*EKG
Interpreted by ED Provider?: Yes
Heart Rate: 133
Rate: tachycardiac
Rhythm: PAC's and sinus tachycardia
[place]: normal axis
QRS Pattern: normal QRS
Ischemia: no ischemia
*[employer] Interpretation
Rate: tachycardiac
Heart Rate: 103
Rhythm: sinus tachycardia
*Critical Care Note
Total Time (30-74mins, 75-104mins- exclusive of procedures): Not Applicable
ED Attending Note
-
Portions of this chart may have been created with voice recognition software.� Occasional wrong word or��sound alike� substitutions may have occurred due to the inherent limitations of voice recognition software.
Discharge Plan
Departure
Patient Disposition: Admit
Date of Disposition: 06/26/23
Time of Disposition: 23:09
Admit to: Med/Surg
Presentation/result/management discussed w/ accepting MD/DO: Hospitalist
Patient with high blood pressure during this ER visit?: No
Condition: Good
Covid-19: Not Applicable
Discharge Problem:
Cellulitis of leg, right
Prescriptions:
No Action
doxycycline hyclate 100 mg capsule
100 mg PO BID 10 Days Qty: 20 0RF
Referrals:
Odalis Maldonado DO [Family Provider] -
Interventions
Interventions:
*ED COVID-19 Vaccine History Last Done: 06/26/23 19:02
ED- Cardiac Assessment Last Done: 06/26/23 21:41
ED- Pulmonary Assessment Last Done: 06/26/23 21:41
[2023-06-26 21:37] VITALS: BP 107/60
--- NOTE | 2023-06-26 23:51 | HPS.HSE ---
Family Physician
-
Family Physician: Odalis Maldonado
Chief Complaint
-
Bleeding from leg
History of Present Illness
72F HX COPD/emphysema, Anemia pw bleeding from the left lower leg. She was at the [facility] twice in the past month. for fluid build up on her legs and suggested to go to the hospital but she did not due to her daughter is in [facility]
and has been very sick for the past 2 months.
Currently on Keflex by [facility] as he thought the right leg looked infected.
Today she sent to change the bandages on her legs when she started to have bleeding from the left lower leg. States that this happened 2 weeks ago. States that it took her over an hour to get the bleeding to stop. States that she started this 2
days ago.
ROS
headache and she is always SOB.
Denies any fever, chills, chest pain, abd pain, nausea, vomiting, diarrhea, dizziness, urinary burning.
Medical History
Past Medical History
Past Medical History: Reports Other
Additional Past Medical History:
COPD (emphysema) and Other (anemia, RA, Migraines, )
Past Surgical History: Reports Other
Additional Past Surgical History:
, Gynecological (Hysterectomy, Fibroid removed, ), Orthopedic (Right wrist surgery, Left tibial fracture) and Other (Dental surgery cataracts, )
Social History
Tobacco: Former Smoker
Alcohol: None
Drug: None
Personal:
Living: With Family
Family History
Family History: Not pertinent
Allergies / Home Medications
Allergies reflects when Allergies were last updated in [employer].
Home Medications with original date entered in [employer]
Allergy/Medication List:
Allergies
Allergy/AdvReac Type Severity Reaction Status Date / Time
mannitol [From Reclast] Allergy Swelling Verified 06/11/23 16:14
water for injection,sterile Allergy Swelling Verified 06/11/23 16:14
[From Reclast]
zoledronic acid Allergy Swelling Verified 06/11/23 16:14
[From Reclast]
Home Medications
doxycycline hyclate 100 mg capsule 100 mg PO BID 10 days #20 caps 05/31/23
Review of Systems
-
Constitutional: Reports No Symptoms
EENT: Reports No Symptoms
Respiratory: Reports No Symptoms
Cardiac: Reports No Symptoms
Abdomen/GI: Reports No Symptoms
: Reports No Symptoms
Musculoskeletal: Reports No Symptoms
Skin: Reports See HPI
Neurological: Reports No Symptoms
Endocrine: Reports No Symptoms
Hematologic/Lymphatic: Reports No Symptoms
Psych: Reports No Symptoms
Physical Exam
Vital Signs
Vital Signs
Temp Pulse Resp BP Pulse Ox
98.2 F 104 17 107/60 100
06/26/23 18:58 06/26/23 21:45 06/26/23 21:45 06/26/23 21:37 06/26/23 21:45
Physical Exam
General: Other (see below )
Laboratory Results
-
06/26/23 19:13
06/26/23 19:13
Laboratory Results
Total Bilirubin 0.5 mg/dl (0.2-1.3) 06/26/23 19:13
AST 33 U/L (14-36) 06/26/23 19:13
ALT 26 U/L (0-35) 06/26/23 19:13
Alkaline Phosphatase 135 U/L (38-126) H 06/26/23 19:13
Troponin I < 0.012 ng/ml 06/26/23 19:13
Data Reviewed
-
Lab Data: Labs Reviewed by me
Old Records: Reviewed
Impression/Plan
-
Reviewed VS: 98.[address] 105 BP 105/60 RR 17
PE
Gen: Not toxic looking
HEENT: atraumatic
Neck: supple
Lungs: CTA
Cor: RRR S1 S2
Abdomen: soft abdomen
ASSOCIATE DOCTOR: AAO3 , NFND
MS:
chronic pitting edema of the feet and lower legs.
Small open area- no active bleeding at this time on the left mid roper.
Open cracked skin on the right heel
Psych: anxious
Data
WCC 14
Hgb 11.4
MCV 99
Na 134
Cl 95
CO2 36 - baseline is mid 30s to hi 30s
BUN 19
Cr 0.4
eGFR > 60
BG 230
Nl LFts
NEG TPNI
proBNP 375
CXR : pending report
EKG:
SINUS TACHYCARDIA WITH OCCASIONAL , AND CONSECUTIVE PREMATURE VENTRICULAR
COMPLEXES
ABNORMAL ECG
WHEN COMPARED WITH ECG OF 11-JUN-2023 16:57,
PREMATURE VENTRICULAR COMPLEXES ARE NOW PRESENT
PREMATURE ATRIAL COMPLEXES ARE NO LONGER PRESEN
Last hospitalist admission: X
ASSESSMENT & PLAN
Cellulitis of Rt [place] - inadequate respoonse to Op PO Keflex or Doxy
Chr venous stasis Legs with open wound
No prior micro data in [employer]
- Empiric IV vanco and Zosyn
- BCx
- F/ U T , WCC
- Wound care consult
Hyperglycemia
No prior HX DM
- add ISS low
HX COPD (emphysema)
Chr hypercarbia - stable - suspect chr CO2 retention
- stat ABG if any altered mentation
Anemia HX
HX RA
HX Migraines
- Pending Rx reconciliation
DVT Px: LMWH
Code: Full
IP MS
[2023-06-27] MEDS: ZOSYN 50 IV ×3 (00:06→12:53)
[2023-06-27 00:08] VITALS: BP 134/75
[2023-06-27] MEDS: VANCOCIN 200 IV (00:12)
[2023-06-27] MEDS: TYLENOL 1000 MG PO (00:16)
[2023-06-27 01:07] VITALS: BP 119/88
[2023-06-27 02:02] VITALS: BP 100/59; BMI 21.7
--- NOTE | 2023-06-27 02:44 | PTCARENOTE ---
Pt. admitted from E.D., AAO x 3, vs stable, 99% 4L, call colon within reach.
[2023-06-27] MEDS: FLUSH (NSS) 2 FLUSH IV (05:18)
[2023-06-27 07:00] VITALS: BP 110/62
[2023-06-27 07:09] LABS: Glucose - Point of Care 126 mg/dl (70-99)
[2023-06-27 07:55] LABS: Hematocrit 37.1 % (37.0-47.0); Hemoglobin 11.3 g/dL (12.0-16.0); Mean Corp Hgb Conc. 30.5 g/dL (33.0-37.0); Mean Corpuscular Hgb 30.5 pg (27.0-31.0); Mean Corpuscular Volume 100.3 fL (81.0-99.0); Mean Platelet Volume 10.1 fL (7.4-10.4); Platelet Count 256 10^3/uL (130-400); Red Cell Dist. Width 14.2 % (11.5-14.5)
[2023-06-27 08:14] LABS: Blood Urea Nitrogen 18 mg/dl (7-17); Calcium 9.1 mg/dl (8.4-10.2); Chloride 93 mmol/L (98-107); Estimated Creatinine Clearance 62 ml/min; Glucose 121 mg/dl (70-99); Potassium 4.5 mmol/L (3.5-5.1); Sodium 136 mmol/L (135-145); eGFR > 60.00
[2023-06-27 08:25] LABS: Carbon Dioxide 42 mmol/L (22-30)
[2023-06-27] MEDS: NOVOLOG FLEXPEN-LOW RESISTANCE SC ×2 (08:39→12:46)
--- NOTE | 2023-06-27 08:58 | PHA.VAN.IN ---
Assessment
- Assessment
Renal Function: Appears similar to baseline (0.4 05/31/23)
Maximum Temperature: 98.3 on 06/27/23 at 07:00
Minimum Temperature: 98.2 on 06/27/23 at 02:02
Concomitant Antimicrobials: Piperacillin-tazobactam
AUC Dosing Plan
- Dosing Variables
Dosing Weight (kg): 50.41
Dosing CrCl (ml/min): 62
Vd coefficient (L/kg): 0.7
- Empiric Dosing
Initial / Loading Dose: Vancomycin 1000mg (20mg/kg) x 1 given at 00:12 today
Maintenance Regimen: Vancomycin 1000mg IV daily starting 06/28/23 at 06:00
Estimated AUC (mcg*h/mL): 521
Estimated Peak (mcg*h/mL): 38
Estimated Trough (mcg/ml): 11
Estimated Half Life (H): 12
- Monitoring
No levels ordered at this time: Levels will be ordered according to vancomycin dosing protocol
Pharmacokinetics Vancomycin I
- -
Patient Age: 72
Patient Sex: Female
Vancomycin Day #: 1
Indication: Skin And Soft Tissue
Requesting Provider: Demond PATEL
Pertinent Antimicrobial Allergies:
No antibiotic allergies
Height / Weight:
Height 5 ft
Actual Weight 50.405 kg
IBW in k.5
Adjusted BW in k.5
Pertinent Past Medical History: RA on chronic prednisone, LL leg swelling failed doxycycline outpt
- Vital Signs / Lab Results
Temp Pulse Resp BP Pulse Ox
98.3 F 100 16 110/62 100
06/27/23 07:00 06/27/23 07:00 06/27/23 07:00 06/27/23 07:00 06/27/23 07:00
Lab Results - Hematology
06/26/23 06/27/23
19:13 06:42
WBC 14.2 H 11.0 H
Lab Results - Chemistry
06/26/23 06/27/23
19:13 06:42
BUN 19 H 18 H
Creatinine 0.4 L 0.5 L
Estimated Creat Clear 62
Albumin 3.2 L
[2023-06-27] MEDS: VALTREX 500 MG PO (10:48)
[2023-06-27] MEDS: DEMADEX 5 MG PO ×2 (10:48→15:42)
[2023-06-27] MEDS: RESTASIS 0.05% OPHTHALMIC EMULSION 1 DROPS BOTH EYES ×2 (10:48→20:12)
[2023-06-27] MEDS: UNIPHYL 200 MG PO (10:48)
[2023-06-27] MEDS: DELTASONE 5 MG PO ×2 (10:48→20:11)
[2023-06-27] MEDS: LIDOCAINE 4% PATCH 3 PATCH TOPICAL (10:50)
--- NOTE | 2023-06-27 10:51 | CM ---
CM reviewed consult for advance directive information. Patient seen bedside, provided documentation for advance directive. Per patient, she has been unsuccessful in finding a notary that provides a witness, asking CM if she can look into this.
Initial assessment completed. Patient reports her daughter is in [facility] and is very sick, is intubated, does not want her daughter to know she is in the hospital. Patient reports she lives with her in an apartment, has a walker at
home but would like to look into a rollator, has home oxygen through [employer], has tanks and a concentrator. Patient denies VN, reports she was current with outpatient pulmonary therapy but has been able to go recently. Patient denies SNF,
confirms primary physician Odalis Maldonado, pharmacy [facility] in [place]. CM will continue to follow for discharge planning needs.
Plan; watch wound care/PT needs.
[2023-06-27 10:57] LABS: Glycohemoglobin (HgbA1c) 6.3 % (4.0-5.6)
[2023-06-27] MEDS: PULMICORT 0.5 MG INH ×2 (11:31→20:34)
[2023-06-27] MEDS: DUONEB 3 ML INH ×3 (11:31→20:34)
[2023-06-27 12:22] LABS: Glucose - Point of Care 144 mg/dl (70-99)
--- NOTE | 2023-06-27 12:29 | W.PN.HOSP.TC ---
Today's Communication/Plan
-
US r/o DVT
if neg, fer wrap
change vanco/zosyn to ancef 2 gms Q8H
Assessment / Plan
Assessment / Plan
pt is a 72 year old female
Cellulitis of Rt Lower ext - inadequate response to Op PO Keflex or Doxy--unclear if truly cellulitis or just venous stasis with lymphedema--stop vanco/zosyn--start ancef--check US if neg for DVT then fer wrap compression
Hyperglycemia--No prior HX DM-- add ISS low
HX� COPD (emphysema)--Chr hypercarbia - stable - suspect chr CO2 retention-- on O2--cont nebs/MDI as able
Anemia of chronic disease --did have leg bleeding BUT HGB stable so no contribution of this
HX RA
HX Migraines
DVT Px: LMWH
Code: Full
Anticipated Discharge: 24 - 48 hours
Subjective/Interval History
-
Date of Service: June 27, 2023
pt showed me pictures of her leg bleeding, swelling etc
Objective Data
-
Labs:
Laboratory Results
06/27/23
06:42
WBC 11.0 H
Hgb 11.3 L
Hct 37.1
Plt Count 256
Sodium 136
Potassium 4.5
Chloride 93 L
Carbon Dioxide 42 H
BUN 18 H
Creatinine 0.5 L
Glucose 121 H
Calcium 9.1
Vital Signs:
max temp for 24 hours
06/27/23
02:02
Temp 98.2 F
Vital Signs
Temp Pulse Resp BP Pulse Ox
98.3 F 100 20 110/62 100
06/27/23 07:00 06/27/23 11:36 06/27/23 11:36 06/27/23 07:00 06/27/23 11:36
I&O
06/26/23 06/27/23 06/28/23
06:59 06:59 06:59
Intake Total 50 / 50
Balance 50 / 50
Review of Systems
-
All other systems: Reviewed and negative
Musculoskeletal: Reports Edema
Skin: Reports Other (red)
Hematologic / Lymphatic: Reports Bleeding
Physical Exam
-
General: Well Developed, Well Nourished and No Apparent Distress
HEENT: Normocephalic, Atraumatic and Oxygen
Respiratory: Clear to Auscultation; Negative Wheezes, Rales, Rhonchi or Crackles
Cardiac: Regular Rhythm and S1/S2; Negative Murmur
GI: Soft, Nontender, Nondistended and Normal Bowel Sounds
Musculoskeletal: No Clubbing and No Cyanosis; Negative No Edema (swelling with redness bilateral LE)
[2023-06-27] MEDS: NEURONTIN 100 MG PO ×3 (12:53→20:18)
[2023-06-27] MEDS: ANCEF 10 IV ×2 (13:39→21:35)
[2023-06-27 15:30] VITALS: BP 133/78
[2023-06-27 17:15] LABS: Glucose - Point of Care 199 mg/dl (70-99)
--- NOTE | 2023-06-27 17:15 | PTCARENOTE ---
06/27- Patient's family expresses how dissatisfied with patient's care they are. states semi-private rooms are inappropriate for his immunocompromised . He states she is immunocompromised d/t Stage IV COPD. He is also 'shocked that you
didn't know she has Stage IV COPD. You are the Charge Nurse.' He is unsatisfied that standard precautions do not include masks, and he also quotes a 'lymphedema test that we were told would be done this morning, and we are still waiting for.'
Validating conversation and de-escalation discussion with this head charger. Patient's WBCs= 11; Neutrophils=83.4; Lymphs=0.7; Patient is afebrile. While she is not immunocompromised as per Policy or definition via labs, we do have a private room
to spare at this time, 421. Patient will be moved to 421. Red Lead Burner notified of escalation and de-escalating conversation.
--- NOTE | 2023-06-27 17:43 | PTCARENOTE ---
06/27- Patient's family expresses how dissatisfied with patient's care they are. Son states semi-private rooms are inappropriate for his immunocompromised Mother. He states she is immunocompromised d/t Stage IV COPD. He is also 'shocked that you
didn't know she has Stage IV COPD. You are the Charge Nurse.' He is unsatisfied that standard precautions do not include masks, and he also quotes a 'lymphedema test that we were told would be done this morning, and we are still waiting for.'
Validating conversation and de-escalation discussion with this special agent in charge. Patient's WBCs= 11; Neutrophils=83.4; Lymphs=0.7; Patient is afebrile. While she is not immunocompromised as per Policy or definition via labs, we do have a private room
to spare at this time, 421. Patient will be moved to 421. Feed Mill Supervisor notified of escalation and de-escalating conversation.
[2023-06-27] MEDS: LOVENOX 40 MG SC (17:53)
[2023-06-27] MEDS: NOVOLOG FLEXPEN-LOW RESISTANCE 1 UNITS SC (18:35)
[2023-06-27] MEDS: NON-FORMULARY ITEM 10 MG PO (20:10)
[2023-06-27] MEDS: ATIVAN 0.5 MG PO (20:19)
[2023-06-27] MEDS: FLUSH (NSS) 1 FLUSH IV (21:35)
[2023-06-27] MEDS: OCEAN, SALINE MIST 2 SPRAYS NASAL (21:36)
[2023-06-27 22:01] LABS: Glucose - Point of Care 153 mg/dl (70-99)
[2023-06-27 22:33] LABS: Hepatitis C Antibody Negative (Negative)
[2023-06-27 23:19] VITALS: BP 126/71
[2023-06-28] MEDS: VANCOCIN 200 IV (05:07)
[2023-06-28] MEDS: ANCEF 10 IV ×3 (05:07→20:50)
[2023-06-28] MEDS: FLUSH (NSS) 1 FLUSH IV (05:08)
[2023-06-28 07:00] VITALS: BP 108/62
[2023-06-28 07:41] LABS: Hemoglobin 11.2 g/dL (12.0-16.0); Mean Corp Hgb Conc. 30.3 g/dL (33.0-37.0); Mean Corpuscular Hgb 31.2 pg (27.0-31.0); Mean Corpuscular Volume 103.1 fL (81.0-99.0); Mean Platelet Volume 10.1 fL (7.4-10.4); Platelet Count 214 10^3/uL (130-400); Red Blood Cell Count 3.59 10^6/uL (4.20-5.40); Red Cell Dist. Width 13.7 % (11.5-14.5); White Blood Cell Count 11.8 10^3/uL (4.8-10.8)
[2023-06-28 07:43] LABS: Glucose - Point of Care 130 mg/dl (70-99)
[2023-06-28 08:03] LABS: Blood Urea Nitrogen 20 mg/dl (7-17); Calcium 9.1 mg/dl (8.4-10.2); Chloride 92 mmol/L (98-107); Estimated Creatinine Clearance 62 ml/min; Glucose 149 mg/dl (70-99); Potassium 4.2 mmol/L (3.5-5.1); Sodium 136 mmol/L (135-145); eGFR > 60.00
[2023-06-28] MEDS: DUONEB 3 ML INH ×3 (08:12→21:04)
[2023-06-28] MEDS: PULMICORT 0.5 MG INH ×2 (08:12→21:04)
[2023-06-28 08:13] LABS: Carbon Dioxide 40 mmol/L (22-30)
[2023-06-28] MEDS: LIDOCAINE 4% PATCH 1 PATCH TOPICAL (10:09)
[2023-06-28] MEDS: NON-FORMULARY ITEM 10 MG PO (10:09)
[2023-06-28] MEDS: NOVOLOG FLEXPEN-LOW RESISTANCE SC ×2 (10:09→17:51)
[2023-06-28] MEDS: DELTASONE 5 MG PO ×2 (10:09→20:50)
[2023-06-28] MEDS: DEMADEX 5 MG PO ×2 (10:09→15:46)
[2023-06-28] MEDS: NEURONTIN 100 MG PO ×4 (10:10→20:50)
[2023-06-28] MEDS: UNIPHYL 200 MG PO (10:10)
[2023-06-28] MEDS: RESTASIS 0.05% OPHTHALMIC EMULSION 1 DROPS BOTH EYES ×2 (10:10→20:50)
[2023-06-28] MEDS: VALTREX 500 MG PO (10:10)
[2023-06-28 11:55] LABS: Glucose - Point of Care 184 mg/dl (70-99)
--- NOTE | 2023-06-28 12:49 | W.PN.HOSP.TC ---
Today's Communication/Plan
-
consult ID
cont ancef and fer wraps
Assessment / Plan
Assessment / Plan
pt is a 72 year old female
Cellulitis of Rt Lower ext - inadequate response to Outpt PO Keflex or Doxy--unclear if truly cellulitis or just venous stasis with lymphedema--stop vanco/zosyn--start ancef 2gm U4S--YV neg for DVT, start fer wrap compression--cont outpt
torsemide--WBC improved--arterial study without arterial occlusion --consult ID
Hyperglycemia--No prior HX DM-- add ISS low
HX�COPD (emphysema)--Chronic hypercarbia - stable - suspect chronic CO2 retention-- on O2--cont nebs/MDI as able
Anemia of chronic disease --did have leg bleeding BUT HGB stable so no contribution of this
HX RA
HX Migraines
DVT Px: LMWH
Code: Full
Anticipated Discharge: 24 - 48 hours
Subjective/Interval History
-
Date of Service: June 28, 2023
pt redness a bit better
Objective Data
-
Labs:
Laboratory Results
06/28/23
07:09
WBC 11.8 H
Hgb 11.2 L
Hct 37.0
Plt Count 214
Sodium 136
Potassium 4.2
Chloride 92 L
Carbon Dioxide 40 H
BUN 20 H
Creatinine 0.4 L
Glucose 149 H
Calcium 9.1
Vital Signs:
max temp for 24 hours
06/27/23
15:30
Temp 99 F
Vital Signs
Temp Pulse Resp BP Pulse Ox
98.4 F 103 16 108/62 99
06/28/23 07:00 06/28/23 07:00 06/28/23 07:00 06/28/23 07:00 06/28/23 07:00
I&O
06/27/23 06/28/23 06/29/23
06:59 06:59 06:59
Intake Total 50 / 50 200 / 200
Balance 50 / 50 200 / 200
Review of Systems
-
All other systems: Reviewed and negative
Physical Exam
-
General: Appears Chronically Ill
HEENT: Normocephalic, Atraumatic and Oxygen
Respiratory: Clear to Auscultation; Negative Wheezes or Rhonchi
Cardiac: Regular Rhythm and S1/S2; Negative Murmur
GI: Soft, Nontender, Nondistended and Normal Bowel Sounds
Musculoskeletal: No Clubbing and No Cyanosis; Negative No Edema (lymphedema)
[2023-06-28 15:00] VITALS: BP 140/81
[2023-06-28] MEDS: NOVOLOG FLEXPEN-LOW RESISTANCE 1 UNITS SC (15:06)
--- NOTE | 2023-06-28 16:16 | CM ---
Patient seen, CM discussed phone call to [employer] in [place], awaiting return call from Commutator Repairer to see if they have travel notaries who will also supply a witness. CM will continue to follow for discharge planning needs.
Plan; home no needs, watch for VN needs.
[2023-06-28 17:03] LABS: Glucose - Point of Care 138 mg/dl (70-99)
[2023-06-28] MEDS: LOVENOX 40 MG SC (17:50)
[2023-06-28 22:12] LABS: Glucose - Point of Care 138 mg/dl (70-99)
[2023-06-28 23:25] VITALS: BP 122/70
[2023-06-29] MEDS: OCEAN, SALINE MIST 2 SPRAYS NASAL ×2 (03:01→10:01)
[2023-06-29] MEDS: FIORICET 1 TAB PO (03:01)
[2023-06-29] MEDS: ANCEF 10 IV (06:36)
[2023-06-29 07:00] VITALS: BP 123/68
[2023-06-29] MEDS: PULMICORT 0.5 MG INH ×2 (07:33→19:50)
[2023-06-29] MEDS: DUONEB 3 ML INH ×2 (07:33→19:50)
[2023-06-29 08:24] LABS: Hematocrit 35.1 % (37.0-47.0); Hemoglobin 10.6 g/dL (12.0-16.0); Mean Corp Hgb Conc. 30.2 g/dL (33.0-37.0); Mean Corpuscular Hgb 30.4 pg (27.0-31.0); Mean Corpuscular Volume 100.6 fL (81.0-99.0); Mean Platelet Volume 9.9 fL (7.4-10.4); Platelet Count 206 10^3/uL (130-400); Red Blood Cell Count 3.49 10^6/uL (4.20-5.40); Red Cell Dist. Width 13.6 % (11.5-14.5); White Blood Cell Count 9.9 10^3/uL (4.8-10.8)
[2023-06-29 09:02] LABS: Blood Urea Nitrogen 19 mg/dl (7-17); Calcium 9.1 mg/dl (8.4-10.2); Chloride 91 mmol/L (98-107); Estimated Creatinine Clearance 62 ml/min; Glucose 96 mg/dl (70-99); Sodium 137 mmol/L (135-145); eGFR > 60.00
[2023-06-29 09:19] LABS: Carbon Dioxide 38 mmol/L (22-30)
[2023-06-29] MEDS: ZITHROMAX 250 MG PO (09:20)
[2023-06-29] MEDS: RESTASIS 0.05% OPHTHALMIC EMULSION 1 DROPS BOTH EYES ×2 (09:20→21:39)
[2023-06-29] MEDS: UNIPHYL 200 MG PO (09:20)
[2023-06-29] MEDS: VALTREX 500 MG PO (09:21)
[2023-06-29] MEDS: NEURONTIN 100 MG PO ×4 (09:22→21:40)
[2023-06-29] MEDS: LIDOCAINE 4% PATCH 3 PATCH TOPICAL (09:22)
[2023-06-29] MEDS: DELTASONE 5 MG PO ×2 (09:22→20:12)
[2023-06-29 09:26] LABS: Glucose - Point of Care 116 mg/dl (70-99)
[2023-06-29] MEDS: NOVOLOG FLEXPEN-LOW RESISTANCE SC ×3 (09:39→18:39)
[2023-06-29] MEDS: NON-FORMULARY ITEM 10 MG PO (09:46)
[2023-06-29] MEDS: DEMADEX PO ×2 (10:05→15:52)
[2023-06-29 11:38] LABS: Glucose - Point of Care 117 mg/dl (70-99)
--- NOTE | 2023-06-29 11:50 | WOUNDNOTE ---
[facility] RN note: Patient admitted with cellulitis RLE
See H&P for complete history.
PMH: COPD, 02 dependent, anemia, RA, migraine
Wound Location and type/assessment: Patient admitted with: RLE cellulitis and bilateral LE wounds. Right leg dry, with venous stasis changes, +2 edema and superficial, friable wound. Left leg with scabbed wound that patient reports opens often and
bleeds easily. Right legs with dry skin and +1 edema. + pulses bilaterally. Patient demonstrates ability to stand with walker and ambulate to BR. Reports fair appetite. Heels and sacrum intact.
Appetite: Reports fair appetite
Pressure redistribution devices in place: Versa Care with accumax
Plan: Local wound care to wound on LE. Lotion and compression applied bilaterally. Aquaphor to dry skin on LE daily. Will confirm orders with hospitalist and update nurse. Updated care plan and will follow as needed.
--- NOTE | 2023-06-29 12:29 | CON.ID ---
Consultation
-
Date/Time Consultation Requested: 06/28/2023 1248
Date/Time Consultation Performed: 06/29/2023 1136
Requesting Provider: Dr. Ferris
Performing Provider: Dr. Wren
Reason for Consultation: Lower extremity cellulitis
Chief Complaint / Past History
History of Present Illness
Lucero Ramirez is a 72-year-old female being evaluated at the request of Dr. Ferris in regards to lower extremity cellulitis. History is obtained from chart review, along with patient interview.
The patient presented to [facility] on 06/26/2023 with complaints of bleeding from her left lower leg. She reports that she had been at the clamp truck driver office several times in the past month for evaluation of lower extremity edema. She
reports that she has had quite a significant amount of edema buildup in the legs, with leaking 'up to a gallon of drainage per day'. She has also developed a small wound on the right lower extremity. She reports that her clamp truck driver recently had
assessed the area and because of the erythema placed her on Keflex 2 days prior to admission.
She denies any fevers or chills. She reports that her skin on the lower extremities is quite thin and easily bruises.
At admission, she was found to have a low-grade leukocytosis. She was placed on empiric antibiotics. Infectious Disease is now asked to comment upon further antimicrobial therapy.
Past History
Additional Past Medical History:
COPD
Emphysema
Anemia
Rheumatoid arthritis
Migraines
Additional Past Surgical History:
LENKA
Right wrist surgery
Left tibial fracture
Allergy History:
mannitol [From Reclast] Allergy (Verified 06/11/23 16:14)
Swelling
water for injection,sterile [From Reclast] Allergy (Verified 06/11/23 16:14)
Swelling
zoledronic acid [From Reclast] Allergy (Verified 06/11/23 16:14)
Swelling
Medications Reviewed: Yes
Current Antibiotics:
Cefazolin
Azithromycin 250 mg p.o. q.MWF
Valtrex 500 mg daily
Social History
Tobacco: Former Smoker
Alcohol: None
Drug: None
Personal:
Living: With Family
Employment: Retired
Family History
Family History: Not Pertinent
Review of Systems
Vital Signs
Temp Pulse Resp BP Pulse Ox
98.1 F 93 18 123/68 99
06/29/23 07:00 06/29/23 07:33 06/29/23 07:33 06/29/23 07:00 06/29/23 07:33
Physical Exam
Physical Exam
Constitutional: No Acute Distress, Comfortable and Non-toxic
Eyes: No Conjunctival Hemorrhage and Sclera Anicteric
Cardiovascular: S1/S2; Negative S3/S4
Pulmonary: Wheezes, Coarse and Non Labored; Negative Rhonchi
Gastrointestinal: Soft, Non Tender and Non Distended
Extremities: Edema (3+ bilateral lower extremity edema) and Erythema (Mild bilateral erythema lower extremities)
Musculoskeletal: Negative Joint Swelling or Joint Effusion
Skin: Warm and Dry; Negative Rash or Jaundice
Neurological: Awake and Alert
Psychological: Calm
Lab / Diagnostic Study Results
06/29/23 07:38
06/29/23 07:38
Abs Immat Gran (auto) 0.2 10^3/uL (0-0.05) H 06/26/23 19:13
Absolute Neuts (auto) 11.9 10^3/uL (1.4-6.5) H 06/26/23 19:13
Absolute Lymphs (auto) 0.7 10^3/uL (1.2-3.4) L 06/26/23 19:13
Absolute Monos (auto) 1.3 10^3/uL (0.1-0.6) H 06/26/23 19:13
Absolute Basos (auto) 0.1 10^3/uL (0-0.2) 06/26/23 19:13
Immature Gran % 1.2 % (0-0.5) H 06/26/23 19:13
Neutrophils % 83.4 % (42.2-75.2) H 06/26/23 19:13
Lymphocytes % 4.7 % (20.5-51.1) L 06/26/23 19:13
Monocytes % 9.1 % (1.7-9.3) 06/26/23 19:13
Eosinophils % 0.8 % (0-6) 06/26/23 19:13
Basophils % 0.8 % (0-2) 06/26/23 19:13
Microbiology Results
Micro:
06/27/23 00:14 Blood Culture - Preliminary
Blood/Venous No Growth in 48 hours- Final report to follow
06/27/23 00:04 Blood Culture - Preliminary
Blood/Venous No Growth in 48 hours- Final report to follow
06/27/23 10:19 MRSA Screen - Final
Nose No Methicillin Resistant Staphylococcus aureus isolated.
Assessment / Plan
Lower extremity lymphedema
Lower extremity erythroderma suspect secondary to edema.
Leukocytosis; improved
COPD
Emphysema
Anemia
Rheumatoid arthritis
Migraines
Recommendations:
Continue with lower extremity compressive modalities.
Counseled patient that use of compression will likely be necessary in the long-term.
She reports that she will be seen in the lymphedema clinic here at [facility].
For now, continue with knee-high Abiodun wrap's.
Erythema is noted of the lower extremities, and likely a component of the overall edema. Infection (cellulitis) possible, and will therefore continue with antibiotic coverage. Can transition to oral Keflex 500 mg p.o. 4 times daily for an
additional 5 days
[2023-06-29] MEDS: KEFLEX 500 MG PO ×3 (12:46→21:40)
[2023-06-29] MEDS: LASIX 40 MG IV (12:46)
[2023-06-29] MEDS: HYDROPHOR 1 APPLIC TOPICAL (12:46)
--- NOTE | 2023-06-29 13:20 | WOUNDNOTE ---
[facility] RN NOTE: Reviewed chart, met with patient and Naomi. Patient follows up at [facility] for left ankle wound. The wound is from a Moh's surgery, then skin graft. had just completed wound care before assessment so picture was not taken.
has all supplies and would like to continue doing wound care during in- patient stay. Patient agreeable to plan. Patient demonstrated ability to turn in bed. Sacrum and heels intact. Will add orders and update hospitalist. FLORENTINO Box made aware of
plan. Will continue to follow as needed.
[2023-06-29 15:00] VITALS: BP 120/57
--- NOTE | 2023-06-29 16:50 | W.PN.HOSP.TC ---
Today's Communication/Plan
-
IV lasix 40mg x1
continue abx
continue leg elevation/wrapping
Assessment / Plan
Assessment / Plan
pt is a 72 year old female
Cellulitis of Rt Lower ext - inadequate response to Outpt PO Keflex or Doxy--unclear if truly cellulitis or just venous stasis with lymphedema--stop vanco/zosyn--start ancef 2gm J0T--YA neg for DVT, start fer wrap compression--WBC improved--arterial
study without arterial occlusion --consult ID
-Patient concerned about right lower extremity swelling, giving IV 40 mg Lasix dose once
Hyperglycemia--No prior HX DM-- add ISS low
HX�COPD (emphysema)--Chronic hypercarbia - stable - suspect chronic CO2 retention-- on O2--cont nebs/MDI as able
Anemia of chronic disease --did have leg bleeding BUT HGB stable so no contribution of this
HX RA
HX Migraines
DVT Px: LMWH
Code: Full
Anticipated Discharge: Within 24 hours
Subjective/Interval History
-
Date of Service: June 29, 2023
Concerned about right lower extremity swelling
Afebrile overnight
Objective Data
-
Labs:
Laboratory Results
06/29/23
07:38
WBC 9.9
Hgb 10.6 L
Hct 35.1 L
Plt Count 206
Sodium 137
Potassium 4.0
Chloride 91 L
Carbon Dioxide 38 H
BUN 19 H
Creatinine 0.4 L
Glucose 96
Calcium 9.1
Vital Signs:
Vital Signs
Temp Pulse Resp BP Pulse Ox
98.1 F 93 18 123/68 99
06/29/23 07:00 06/29/23 07:33 06/29/23 07:33 06/29/23 07:00 06/29/23 07:33
I&O
06/28/23 06/29/23 06/30/23
06:59 06:59 06:59
Intake Total 200 / 200 840 / 840
Balance 200 / 200 840 / 840
Review of Systems
-
Respiratory: Reports No Symptoms
Cardiac: Reports No Symptoms
Abdomen/GI: Reports No Symptoms
Physical Exam
-
General: Comfortable
HEENT: Negative Oxygen
Musculoskeletal: Edema, Right Lower Extrem (dressing in place. )
Neuro: Awake, Alert and Oriented
[2023-06-29] MEDS: LOVENOX 40 MG SC (18:31)
[2023-06-29 18:40] LABS: Glucose - Point of Care 97 mg/dl (70-99)
[2023-06-29 21:35] LABS: Glucose - Point of Care 189 mg/dl (70-99)
[2023-06-29 23:49] VITALS: BP 139/67
[2023-06-30] MEDS: DUONEB 3 ML INH ×4 (05:44→19:54)
[2023-06-30 07:23] LABS: Hematocrit 34.5 % (37.0-47.0); Hemoglobin 10.5 g/dL (12.0-16.0); Mean Corp Hgb Conc. 30.4 g/dL (33.0-37.0); Mean Corpuscular Volume 101.8 fL (81.0-99.0); Mean Platelet Volume 10.3 fL (7.4-10.4); Platelet Count 187 10^3/uL (130-400); Red Blood Cell Count 3.39 10^6/uL (4.20-5.40); Red Cell Dist. Width 13.3 % (11.5-14.5); White Blood Cell Count 9.8 10^3/uL (4.8-10.8)
[2023-06-30] MEDS: PULMICORT 0.5 MG INH ×2 (07:55→19:54)
[2023-06-30 08:21] LABS: Blood Urea Nitrogen 29 mg/dl (7-17); Calcium 8.9 mg/dl (8.4-10.2); Chloride 90 mmol/L (98-107); Estimated Creatinine Clearance 62 ml/min; Glucose 114 mg/dl (70-99); Potassium 3.9 mmol/L (3.5-5.1); Sodium 136 mmol/L (135-145); eGFR > 60.00
[2023-06-30 08:23] LABS: Glucose - Point of Care 102 mg/dl (70-99)
[2023-06-30 08:27] VITALS: BP 125/66
[2023-06-30] MEDS: NOVOLOG FLEXPEN-LOW RESISTANCE SC ×2 (08:30→12:44)
[2023-06-30 08:36] LABS: Carbon Dioxide 39 mmol/L (22-30)
--- NOTE | 2023-06-30 08:42 | W.PN.HOSP.TC ---
Today's Communication/Plan
-
lasix dose once
continue abx/fer wrap/leg elevation
discharge tomorrow
Assessment / Plan
Assessment / Plan
Cellulitis of Rt Lower ext
- inadequate response to outpt PO Keflex or Doxy
-unclear if truly cellulitis or just venous stasis with lymphedema
-stop vanco/zosyn - on ancef 2g q8h
-US neg for DVT, start fer wrap compression
-WBC improved
-ID consulted and recommended repeat dose of keflex tomorrow.
-Lasix 40mgx1 once again, this is likely not going to benefit further but patient concerned about swelling and will provide a trial dose. continue demadex in evening.
Hyperglycemia--No prior HX DM-- add ISS low
HX�COPD (emphysema)- Chronic hypoxic resp failure -Chronic hypercarbia
- stable - suspect chronic CO2 retention
- continue home o2
-cont nebs/MDI as able
Anemia of chronic disease --did have leg bleeding BUT HGB stable so no contribution of this
HX RA
HX Migraines
DVT Px: LMWH
Code: Full
Patient remains adamant about not leaving hospital again today. Concern about right lower extremity swelling which I have discussed with patient that will persist due to lymphedema and will take some time to improve after continue follow-up with
lymphedema clinic. I have informed patient there is no further need of acute care setting help and patient will be discharged tomorrow.
Anticipated Discharge: Within 24 hours
Subjective/Interval History
-
Date of Service: June 30, 2023
no acute issues except swelling in the leg, which is chronic finding.
afebrile overnight
Objective Data
-
Labs:
Laboratory Results
06/30/23
06:48
WBC 9.8
Hgb 10.5 L
Hct 34.5 L
Plt Count 187
Sodium 136
Potassium 3.9
Chloride 90 L
Carbon Dioxide 39 H
BUN 29 H
Creatinine 0.4 L
Glucose 114 H
Calcium 8.9
Vital Signs:
Vital Signs
Temp Pulse Resp BP Pulse Ox
98.5 F 101 17 125/66 100
06/30/23 08:27 06/30/23 08:27 06/30/23 08:27 06/30/23 08:27 06/30/23 08:27
I&O
06/29/23 06/30/23 07/01/23
06:59 06:59 06:59
Intake Total 840 / 840 1440 / 1440
Balance 840 / 840 1440 / 1440
Review of Systems
-
Cardiac: Reports No Symptoms
Abdomen/GI: Reports No Symptoms
Musculoskeletal: Reports Edema
Physical Exam
-
General: No Apparent Distress and Comfortable
HEENT: Oxygen
Musculoskeletal: Edema, Right Upper Extrem (right leg wrap in place)
[2023-06-30] MEDS: KEFLEX 500 MG PO ×4 (08:49→21:00)
[2023-06-30] MEDS: RESTASIS 0.05% OPHTHALMIC EMULSION 1 DROPS BOTH EYES ×2 (08:49→20:46)
[2023-06-30] MEDS: DELTASONE 5 MG PO ×2 (08:49→20:45)
[2023-06-30] MEDS: VALTREX 500 MG PO (08:49)
[2023-06-30] MEDS: UNIPHYL 200 MG PO (08:49)
[2023-06-30] MEDS: NEURONTIN 100 MG PO ×4 (08:49→21:00)
[2023-06-30] MEDS: NON-FORMULARY ITEM 10 MG PO (08:50)
[2023-06-30] MEDS: LIDOCAINE 4% PATCH 3 PATCH TOPICAL (08:50)
[2023-06-30] MEDS: HYDROPHOR 1 APPLIC TOPICAL (08:52)
[2023-06-30] MEDS: LASIX 40 MG IV (08:52)
[2023-06-30] MEDS: DEMADEX PO (09:08)
[2023-06-30] MEDS: FIORICET 1 TAB PO (11:37)
[2023-06-30 12:42] LABS: Glucose - Point of Care 147 mg/dl (70-99)
[2023-06-30] MEDS: TYLENOL 650 MG PO (13:33)
--- NOTE | 2023-06-30 14:54 | CM ---
Addendum entered by Phoebe Garcia 06/30/23 15:38:
POA/Advance directive forms provided to patient.
Original Note:
Patient seen bedside.
Patient with b/l Le elevated onto bed.
Patient requesting POA forms/advance directives as she threw away the ones given to her.
Patient requesting a lymphedema therapy.
CM will cont to follow for d/c needs.
patient is planning on going to [facility] wound care center.
Plan: home with possible Lymphedema therapy and wound care center.
--- NOTE | 2023-06-30 15:35 | CS.PSYCHR ---
Consult Summary - Psychiatry
-
Pt is 72 yo female admitted with fluid build up in her legs, bleeding from left lower leg. Psychiatry asked to see for anxiety, pt noted reluctant to leave the hospital.
Upon interview, pt is very talkative, circumstantial, preoccupied with her daughter's life-long issues and recent medical problems. Pt states she has heightened anxiety due to dtr's hospitalization for double pneumonia, was on 'life-support',
though recovering. 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 Pt was placed on Ativan 0.5 mg prn, which she states is helpful; she wants to keep the dose to a minimum. Pt
declines any other medication. Pt states she is happily , though she expresses worries about her 's health. Pt denies depression. She attributes some of her pressured speech to being on Prednisone. Pt states Ativan prn helps, only
took once on 06/27 since ordered.
PMH: COPD (emphysema), anemia, RA, Migraines
Hx of , Hysterectomy, Orthopedic (Right wrist surgery, Left tibial fracture- pt reports she fell on the stairs in 2012)
Psych Hx: denied
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
MSE: sitting up in chair with legs elevated on pillows, alert, oriented, good eye contact. Speech somewhat pressured, circumstantial though redirectable. No signs of psychosis or depression. Reports increased anxiety due to worries about dtr's
health situation, as well as . Insight fair.
Imp: Unspecified anxiety- situational. Personality factors
Rec: continue on Ativan as needed. Pt declines any additional med. Gabapentin for pain also has some anti-anxiety benefits.
Would encourage therapy, though pt seems reluctant, states she has coping mechanisms
Psychiatry will sign off
[2023-06-30 16:07] VITALS: BP 131/69
[2023-06-30] MEDS: DEMADEX 5 MG PO (16:13)
[2023-06-30 16:16] LABS: Glucose - Point of Care 236 mg/dl (70-99)
[2023-06-30] MEDS: NOVOLOG FLEXPEN-LOW RESISTANCE 2 UNITS SC (18:16)
[2023-06-30] MEDS: LOVENOX 40 MG SC (18:17)
[2023-06-30 22:11] LABS: Glucose - Point of Care 135 mg/dl (70-99)
[2023-06-30 23:00] VITALS: BP 114/72
--- NOTE | 2023-07-01 04:35 | DOWNTIME ---
There was a Lien Enforcement Client Chief Dog License Inspector Downtime on 07/01/2023 from 0111 to 07/01/2023 at 0405. Downtime documentation of patient's care, including medication administrations, has been reconciled in the electronic record per guidelines. Refer to the
patient's paper chart under the miscellaneous tab to see printed paper medication records and downtime forms.
[2023-07-01] MEDS: FIORICET 1 TAB PO (05:28)
[2023-07-01 06:51] LABS: Glucose - Point of Care 112 mg/dl (70-99)
[2023-07-01 07:15] VITALS: BP 128/56
[2023-07-01] MEDS: DUONEB 3 ML INH (08:01)
[2023-07-01] MEDS: PULMICORT 0.5 MG INH (08:01)
[2023-07-01 08:45] LABS: Blood Urea Nitrogen 23 mg/dl (7-17); Calcium 8.9 mg/dl (8.4-10.2); Chloride 89 mmol/L (98-107); Estimated Creatinine Clearance 62 ml/min; Glucose 111 mg/dl (70-99); Potassium 3.7 mmol/L (3.5-5.1); Sodium 137 mmol/L (135-145); eGFR > 60.00
[2023-07-01] MEDS: NOVOLOG FLEXPEN-LOW RESISTANCE SC (09:25)
--- NOTE | 2023-07-01 10:15 | WOUNDNOTE ---
[facility] RN note: Patient seen with Dr. Mills. RLE edema and erythema improved from chart review and photos. Current wound care and Abiodun wraps appropriate. Dressings changed Le's. Knee high Abiodun wraps applied. Patient tolerated well. Sacral/buttocks skin
intact. Patient turns self in bed and ambulates with walker. Appetite good this morning. Wound care supplies and Abiodun wraps given. Patient plans to follow up at [facility] wound care center next week and make appointment with Lymphedema clinic.
Patient given script for Lymphedema therapy signed by Dr. Mills (Logistics Vice President Grazyna Garcia obtained script from hospitalist). Heels off bed with pillows. Air chair cushion given.
--- NOTE | 2023-07-01 10:20 | W.PN.HOSP.TC ---
Today's Communication/Plan
-
d/c home
f/u with wound care center/lymphedema clinic
Assessment / Plan
Assessment / Plan
Cellulitis of Rt Lower ext
- inadequate response to outpt PO Keflex or Doxy
-unclear if truly cellulitis or just venous stasis with lymphedema
-US neg for DVT, start fer wrap compression
-WBC improved
-ID consulted and recommended and keflex course at discharge.
-Patient remains anxious about lower EXTR swelling, recommended to increase Torsemide to 10mg BID x5 days and then 5mg BID
Hyperglycemia
Pre-diabetic
-Hbg a1c 6.3.
HX�COPD (emphysema)- Chronic hypoxic resp failure -Chronic hypercarbia
-stable - suspect chronic CO2 retention
-cont nebs/MDI as able
-Patient feeling breathing at not baseline. Chest x-ray clear. Oxygen requirement stable.
Generalized anxiety disorder
-Patient on as needed Ativan
-Psychiatry involved on patient spouse's request. Patient have declined further treatment and evaluation by psychiatry.
-Patient have pressured speech.
Anemia of chronic disease
-Concerned about getting anemic from blood loss from skin wound
-Hemoglobin remained stable during the hospital stay
-Iron/ferritin check ordered per patient request
-Patient gets periodic iron infusion by primary systems tester,
Right ear pain
-Concerned about otitis media although on systemic antibiotics and unlikely
-Requesting antibiotic eardrops, prescription for ciprofloxacin eardrops transmitted to pharmacy
HX RA
Chronic steroids use
-Contributing to increasing skin fragility and decrease wound healing
-f/us with rehumatology
HX Migraines
DVT Px: LMWH
Code: Full
07/01 patient continued to complain constitution of symptoms
More than 30 minutes spent in discharge including
Final examination of the patient
Summarizing hospital stay
Instructions for continuing care to all relevant caregivers
Preparation of discharge records, prescriptions, and referral forms
Total time spent (in minutes): 45 mins
Anticipated Discharge: Today
Subjective/Interval History
-
Date of Service: July 01, 2023
Patient continued to complain constellation of symptoms
Worried about being anemic from blood loss from lower extremity wound site
Stating ' breathing not normal '. No reported cough shortness of breath
Concerned about lower extremity swelling
Pressured speech
Objective Data
-
Labs:
Laboratory Results
07/01/23
06:38
Sodium 137
Potassium 3.7
Chloride 89 L
Carbon Dioxide Pending
BUN 23 H
Creatinine 0.4 L
Glucose 111 H
Calcium 8.9
Vital Signs:
Vital Signs
Temp Pulse Resp BP Pulse Ox
98.4 F 81 24 128/56 100
07/01/23 07:15 07/01/23 08:07 07/01/23 08:07 07/01/23 07:15 07/01/23 07:15
I&O
06/30/23 07/01/23 07/02/23
06:59 06:59 06:59
Intake Total 1440 / 1440 1860 / 1860
Balance 1440 / 1440 1860 / 1860
Review of Systems
-
Respiratory: Denies Cough, Trouble Breathing or Wheezing
Cardiac: Reports No Symptoms
Abdomen/GI: Reports No Symptoms
Physical Exam
-
General: No Apparent Distress and Comfortable
HEENT: Oxygen (4L NC)
Respiratory: Clear to Auscultation
Musculoskeletal: Edema, Right Lower Extrem (bandage in place) and Edema, Left Lower Extrem (pin point scabbed scar on left roper)
Neuro: Awake, Alert, Oriented and No Motor Deficits
Psych: Anxious
[2023-07-01] MEDS: NON-FORMULARY ITEM PO (10:35)
[2023-07-01] MEDS: LIDOCAINE 4% PATCH 3 PATCH TOPICAL (10:35)
[2023-07-01] MEDS: KEFLEX 500 MG PO ×2 (10:37→13:48)
[2023-07-01] MEDS: DEMADEX 5 MG PO (10:37)
[2023-07-01] MEDS: HYDROPHOR 1 APPLIC TOPICAL (10:37)
[2023-07-01] MEDS: DELTASONE 5 MG PO (10:38)
[2023-07-01] MEDS: NEURONTIN 100 MG PO ×2 (10:38→13:48)
[2023-07-01] MEDS: RESTASIS 0.05% OPHTHALMIC EMULSION 1 DROPS BOTH EYES (10:38)
[2023-07-01] MEDS: VALTREX 500 MG PO (10:39)
[2023-07-01] MEDS: UNIPHYL 200 MG PO (10:39)
[2023-07-01] MEDS: ZITHROMAX 250 MG PO (10:39)
[2023-07-01 10:55] LABS: Carbon Dioxide 39 mmol/L (22-30)
--- NOTE | 2023-07-01 11:12 | CM ---
Patient seen bedside.
Patient for d/c home today.
IMM reviewed and signed.
Patient with multiple concerns re her COPD, raspy voice, iron levels, oxygen needs, clogged ears.
CXR to be completed and patient also requesting blood work be done.
Plan: home with outpatient wound care at [facility], f/u for outpatient lymphedema in [facility] therapy department.
Spouse will transport.
[2023-07-01 11:30] LABS: Glucose - Point of Care 163 mg/dl (70-99)
--- NOTE | 2023-07-01 11:59 | CON.MD ---
Consultation - Medical
-
patient seen chart reviewed. .discussed w case mgt and with dr nash. this consult ordered for anxiety . although dr giles saw her yesterday the family requested a second consult. the patient is extremely circumstantial although with much
persistence it was possible to get her to focus at times on the issues at hand . she is ANXIOUS as her d has been on a ventilator since march and there is ? of whether she will make it. the patient is convinced 'my d is a fighter' but it seems
there is some difference of opinion as to how to proceed w sana's sister who is a lens edge grinder machine being the medical poa. the patient also cites loss of her major coping strategy ...which was walking five miles daily with the fx of her tibia which required nine
months of weight bearing and which she feels completely ruined her health. she feels it is responsible for her copd although she also was a smoker. the fall which caused this occured about six years ago. patient was prescribed ativan up to 2 mg
qid by her pcp but told chan she uses it once daily and told me she takes it twice daily. she has NO suicidal thoughts but she did tell me her h owns a gun but she does not believe in guns and would never use it. sleep and appetite are fair. she
denies that she is depressed but sees herself as anxious, but adds that everyone in the family is anxious at this point and she feels her should be rx for anxiety particularly. she says she has a therapist lined up for herself, 'judith
florentino' who treated her d in the past and is 'wonderful'
past psych hx patient denies any previous psych hx other than that noted above
medical here for leg edema and ? infection/bleeding....rheumatoid arthritis..troubling migraines has appt w neuro for the near future copd hx tibial fx with complications hx danay for fibroids anemia described as 'chronic disease' macrocytic
indices qtc 449
substance abuse former smoker denies other hx of sa
family hx mother was alcoholic although mom was attentive to patient sana who is now on a vent had life long extensive psych issues and substance abuse
social hx resides w h. two daughters one a successful lens edge grinder machine and the other troubled and now very physically ill. 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
diminished these coping strategies.
mse patient is a 72 year old who was cooperative. speech was fairly rapid normal tone. thoughts process extremely tangential. in the course of telling me about d's current illness she digressed back to daughters toddler years difficulties at
school etc etc. no karyna psychosis denies depression but understandably very preoccupied with d's health and extremely anxious no suicidal thoughts above aver intelligence insight judgment fair
dx adjustment disorder w anxious features
plan do not feel patient needs an antidepressant at this point but counseled her re taking ativan 2 mg at a time. explained that this would make her vulnerable to falls, memory issues, tolerance and eventual addiction. would use much less perhaps
o.5 mg no more than three times daily with a view to dc at some point in the not too distant future. she is agreeable to therapy and says she has appts lined up with a therapist she likes and respects. will call later today as requested.
psych will sign off.
[2023-07-01 12:02] LABS: Iron 71 ug/dl (37-170)
[2023-07-01 12:13] LABS: Percent Saturation 28 % (20-50); Total Iron Binding Capacity 253 ug/dl (265-497)
--- NOTE | 2023-07-01 12:31 | WOUNDNOTE ---
[facility] RN note: Patient admitted with R plantar foot ulcer. R foot MRI report states osteomyelitis, probable abscess formation. KANDY pending. Patient is followed and was sent in by Dr. Lira who is on consult for R foot. Patient follows [facility] for
LLE venous ulcer.
See H&P for complete history.
PMH: a fib (Eliquis), HTN, Charcot foot, sleep apnea, bilateral renal artery stenosis, venous insufficiency, BPH, anemia, DJD, former smoker, drinks 1 beer a day.
Wound Location and type/assessment: Patient admitted with: Full thickness neuropathy R plantar foot ulcer that probed 1cm (to muscle or deeper), pink with yellow fibrin. LLE venous deep dermal ulcers, pink with yellow fibrin. Trace LE edema. +Pedal
pulses (L palpable, R heard via portable Doppler).
Appetite: good.
Pressure redistribution devices in place: [employer] Accumax. Patient ambulatory. He has his custom molded shoes.
Plan: Patient seen with Dr. Wren. R foot dressing changed. LLE dressing changed. Bilateral knee high Abiodun wraps applied after confirming with Dr. Wren. Heels off bed with pillow with air chair cushion on top.
Will confirm orders with physician and discussed with FLORENTINO Mcgrath.
Care plan to be updated and will follow as needed.
[2023-07-01] MEDS: NOVOLOG FLEXPEN-LOW RESISTANCE 1 UNITS SC (13:48)
--- NOTE | 2023-07-01 16:05 | W.PN.UPDATE ---
Update Note
Progress Note Update
spoke to who said their 'therapist' asked for a psychiatrist to see her. she has been very upset given the illness of her daughter. worries that she is not taking care of herself and is staying up too late at night and not keeping
her feet elevated etc. she also is described which i did note today as talking non stop in a very repetitive fashion and there is concern that she is manic. overtalking can be a symptom as well of anxiety. mrs nguyễn certainly has reasons to be
very anxious about her daughter's illness and her own medical problems. while florencio is a possibility it is unusual for florencio to appear at age 71 but not unheard of. i would not go there as of yet. i relayed my concerns and recommendations to mr "Nely"gopi. would make sure she does see neurology as migraines are a big issue for the patient. would followup with rheumatology and pulmonary. explained my concerns re ativan and its use. if she needs a psychiatrist she should ask her therapist
for the name of someone the therapist works with as communication between therapist and presriber can be very useful.
--- NOTE | 2023-07-02 07:38 | W.DCSUMMARY ---
Discharge Summary
Discharge Data
Date of Admission: 06/26/23
Date of Discharge: 07/01/23
-
Pending Results: No
Hospital Course
Discharging Physician : Dr Alexey Mills
Disposition : Home
Primary care physician : Dr Odalis Maldonado
Principal Discharge diagnosis :
Right lower extremity cellulitis
Chronic venous stasis dermatitis versus lymphedema
Superficial nonhealing venous wound on both legs
Chronic Discharge diagnosis :
Prediabetes
Chronic obstructive pulmonary disease
Generalized anxiety disorder
Anemia of chronic disease
History of rheumatoid arthritis on chronic steroids
History of migraine
Hospital Course :
Patient is a 72-year-old female with above-mentioned past medical history came to ER for having worsening lower extremity edema/wound and excessive bleeding from the wound site. Patient was seen by cardiology in office and was prescribed diuretic
therapy. Patient in process of follow-up with wound care/lymphedema clinic on outpatient basis. Patient was prescribed Keflex by cardiology practice but continued to have worsening erythema and came to ER for further evaluation. Patient started
on IV Ancef therapy. Lower extremity venous Doppler was checked and was negative. Wound care was involved in care and patient was recommended to have a LETY wraping and leg elevation to help swelling. Infection disease were involved in care
recommended external Keflex therapy for another 5 days at discharge.
Of note patient have generalized anxiety disorder and continued to have concerns about non-improvement of leg swelling. Dose of IV diuretics was provided. Patient educated/repeat discussion to explain pathophysiology of venous stasis
dermatitis/lymphedema.
Patient also worried about pulmonary status, clinically no active pulmonary disease this admission. Chest x-ray clear and patient did not require any further treatment.
Patient was evaluated by psychiatry on spouse request although patient declined to be started on any other treatments. Currently on Ativan as needed.
Post improvement patient was discharged home with follow-up with primary care physician/wound care center/lymphedema clinic.
Important imaging findings :
None
Procedure findings :
None
Discharge Plan
-
Patient Disposition: Home with Home Care
Discharge Diagnosis/Procedures: Cellulitis, Chronic venous stasis dermatitis, Lymphedema
Condition: Fair
Diet: Low Sodium
Activity: As tolerated
Driving Restrictions: As prior to admission
Bathing Restrictions: OK to Shower
Other Services: VN
Activity Restrictions/Additional Instructions:
Wound Care Instructions Right and Left LE wounds- Clean with normal saline or soap and water. Apply adaptic and silicone border foam (add alginate after adaptic as needed for large amount of drainage). Change Q 48 hours and as needed if loosened
or soiled.
LETY wraps to bilateral LE daily
Apply Aquaphor to dry skin on LE daily
Keep heels off-loaded with pillows under calves
Follow up at wound care center call for an appointment OR follow up with [facility] wound care center.
Follow up with Lymphedema clinic at [facility] [phone].
Referrals:
Odalis Maldonado DO [Family Provider] - in one week
Prescriptions:
New
torsemide 5 mg Tablet
5 mg PO BID@0800,1600 Qty: 60 0RF
Rx Instructions:
TAKE 2 TABLETS TWICE DAILY FOR NEXT 5 DAYS THEN RETURN TO TAKING 1 TABLET TWICE DAILY
cephalexin 500 mg Capsule
500 mg PO QID Qty: 20 0RF
Cipro HC 0.2-1 % drops,suspension
3 drp otic (ear) BID Qty: 10 0RF
Continued
ipratropium-albuterol 0.5 mg-3 mg(2.5 mg base)/3 mL Solution For Nebulization
3 ml INHALATION R QID
Rx Instructions:
0.5 mg-3mg (2.5mg base)/L nebu: take by neb 4-6x daily
lidocaine 4 % Adhesive Patch,Medicated
3 patch TOPICAL DAILY
Rx Instructions:
patches
alendronate 70 mg Tablet
70 mg PO MARTELL
Rx Instructions:
one tabpo every week in morning, 30 minutes before first food, beverage, or med of day
prednisone 5 mg Tablet
5 mg PO BID
Rx Instructions:
take one tab po with food 2x daily am/pm
leflunomide 10 mg Tablet
10 mg PO DAILY
valacyclovir 500 mg Tablet
500 mg PO DAILY
triamcinolone acetonide 0.1 % Cream
1 applic TOPICAL BID PRN (Reason: b/l feet)
Rx Instructions:
prn
machbpybqn-pvcmeygyfdsfg-cnmx 50-325-40 mg Tablet
1 tab PO Q4H PRN (Reason: migraine)
Rx Instructions:
take one tab po every 4 hrs prn
ciclopirox 8 % Solution
1 applic TOPICAL QID PRN (Reason: arms )
budesonide 0.5 mg/2 mL Suspension For Nebulization
0.5 mg inhalation BID
mupirocin 2 % Ointment
1 applic TOPICAL BID PRN (Reason: b/l feet)
Rx Instructions:
prn
Eugene-24 200 mg Capsule,Extended Release 24hr
200 mg PO DAILY
Rx Instructions:
take one capsule po daily
albuterol sulfate [ProAir HFA] 90 mcg/actuation Hfa Aerosol Inhaler
2 puff INHALATION R Q4HPRN PRN (Reason: sob)
arformoterol [Brovana] 15 mcg/2 mL Solution For Nebulization
2 ml INHALATION BID
Rx Instructions:
15 mcg/2 ml nebu, take 2 mls by neb 2x daily
Actemra 400 mg/20 mL (20 mg/mL) Solution
400 mg IV Q4W
Spiriva Respimat 2.5 mcg/actuation Mist
2 puff INHALATION HS
Rx Instructions:
spray 2.5 mcg/actuation: take 2 inhalation by mouth daily
Combivent Respimat 20-100 mcg/actuation Mist
1 puff INHALATION R QID
Rx Instructions:
Inhale 1 puff by mouth 4x daily in lieu of neb tx as needed
Breztri Aerosphere 160-9-4.8 mcg/actuation Hfa Aerosol Inhaler
2 inh INHALATION BID
Rx Instructions:
160 mcg/9 mcg/4.8 mcg-inhale 2 puffsby mouth 2x daily
azithromycin 250 mg tablet
250 mg PO MOWEFR
gabapentin 100 mg capsule
100 mg PO QID
cyclosporine [Restasis] 0.05 % dropperette
1 drp BOTH EYES BID
lorazepam 0.5 mg tablet
0.5 mg PO QID PRN (Reason: anxiety)
Discontinued
doxycycline hyclate 100 mg capsule
100 mg PO BID 10 Days Qty: 20 0RF
torsemide 5 mg Tablet
5 mg PO BID@0800,1600
Rx Instructions:
take 1 tab po 1 to 2 x daily for fluid retention prn
Discharge Orders:
Discharge Patient (As Directed); Ordered 07/01/23
Ordered By: Alexey Mills
Discharge Date and Time
Discharge Date/Time: 07/01/23 17:04
== END 2023-07-01 17:04 | disposition home health service (06) | DRG 603 ==
LOC: 4 WEST ACU 23:42
PROVIDERS: Registered Nurse; ADMITTING PHYSICIAN Internal Medicine; ATTENDING PHYSICIAN Hospitalist; CONSULT PHYSICIAN Internal Medicine Infectious Disease; CONSULT PHYSICIAN Psychiatry & Neurology Psychiatry; EMERGENCY PHYSICIAN Emergency Medicine; FAMILY PHYSICIAN Family Medicine; OTHER PHYSICIAN Psychiatry & Neurology Psychiatry; REFERRING PHYSICIAN Internal Medicine Cardiovascular Disease
DX: L03.115 Cellulitis of right lower limb (principal); Z87.891 Personal history of nicotine dependence; D63.8 Anemia in other chronic diseases classified elsewhere; F41.1 Generalized anxiety disorder
CPT/HCPCS: 71046; 80048; 80053; 82728; 82962; 83036; 83540; 83550; 83880; 84484; 85025; 85027; 86803; 87040; 87070; 93005; 93970; 94640; 94760; 96365; 96367; 99285

== ENCOUNTER 2023-07-16 17:13 | Inpatient (IN) | payer MEDICARE, SELFPAY ==
[2023-07-16] VITALS (12 sets, daily range): BP systolic 96–139; BP diastolic 51–82
--- NOTE | 2023-07-16 12:46 | ED.GENMED ---
History of Present Illness
<Trever Villegas MD - Last Filed: 07/17/23 08:03>
General
Chief Complaint: Breathing Problem
Time Seen by Provider: 07/16/23 12:45
Travel History
Have you had any contact with someone who has COVID-19?: No
Do you have any symptoms of coronavirus? Fever > 100 degrees, chills, cough, shortness of breath, sore throat, loss of taste or smell, muscle aches, or headache?: No
<Carlota Fry PA-C - Last Filed: 07/17/23 11:00>
General
Source: patient and spouse
Exam Limitations: none
Nursing documentation reviewed up to this point in time: agreed with
History of Present Illness
History of Present Illness:
Patient is a 72 year old female with hx COPD, migraines, anxiety presenting for evaluation of worsening shortness of breath over the past few days. Patient suffers from chronic shortness of breath due to her COPD but has noticed worsening in the
past few days. She is on chronic oxygen at home but does report an increase in requirement over the last few days. She endorses chronic productive cough with whitish/ yellow sputum. Denies chest pain, fevers, chills. Patient reports similar
symptoms over 4 years ago when she was admitted at [facility] for COPD exacerbbation.
Of note- she was recently treated with antibiotics for a URI a few weeks ago and recent hospital admission for cellulitis of right lower leg. She is still experiencing swelling and redness but denies any acute changes.
She takes prednisone 10mg daily and follows with doctors at [facility] and [facility] for management of pulmonary disease. She recently underwent a full cardiac workup for unexplained intermittent tachycardia without any abnormal findings to explain
tachycardia.
Past History
<Trever Villegas MD - Last Filed: 07/17/23 08:03>
Past History
ED Past Medical History: COPD (emphysema) and Other (anemia, RA, Migraines, )
ED Past Surgical History: , Gynecological (Hysterectomy, Fibroid removed, ), Orthopedic (Right wrist surgery, Left tibial fracture) and Other (Dental surgery cataracts, )
Social History
Tobacco: Former smoker
Alcohol: None
Drug: None
Personal:
Living: with family
<Carlota Fry PA-C - Last Filed: 07/17/23 11:00>
Physical Exam
Physical Exam:
General: Chronically ill appearing, non-toxic
Vitals: Hypertensive, tachycardic, on 5L NC with O2 97; afebrile
HEENT: Atraumatic, normocephalic; pupils equal round and reactive to light bilatearlly, protecting airway
Neck: appears supple, no JVD
CV: Tachycardia, regular rhythm, heart sounds normal; no evidence of cyanosis
Resp: Decreased breath sounds bilaterally with mild expiratory wheeze;On 5L NC
Abd: Soft, nontender; non-distended
Extremities: No deformities, Erythema and swelling of bilateral lower legs R>L; dressings intact bilaterally to wounds; DP pulses palpable and strong bilaterally
Neuro: alert and oriented x 3; grossly intact
Psych: Normal affect
Skin: Intact, no rashes
Scores
<Trever Villegas MD - Last Filed: 07/17/23 08:03>
Heart Failure Risk
Heart Failure Risk Score: Not Applicable
Course
<Trever Villegas MD - Last Filed: 07/17/23 08:03>
Orders/Labs/Results
Orders:
Orders
07/16/23 12:29
Electrocardiogram (*1) Urgent
Reason for Study: Bradycardia / Tachycardia
EKG- Treatment ONCE
07/16/23 12:59
CBC/With Diff [Complete Blood Count/With Diff] Urgent
CMP [Comprehensive Metabolic Panel] Urgent
07/16/23 13:19
Butalb/Acetaminophen/Caffeine [Fioricet] 1 tab PO NOW STA
Dexamethasone Sod Phosphate [Decadron] 6 mg IV NOW STA
Ipratropium/Albuterol Sulfate [Duoneb] 3 ml INH R NOW STA
07/16/23 13:31
CR Chest Portable - 1 View Urgent
Comment:
Reason For Exam: sob/hypoxia
Reason Study Needs to be Portable: Patient Unstable
07/16/23 13:47
COVID-19 Antigen Urgent
Source: Nasal Swab
07/16/23 14:33
Legs, Right US [US Periph Venous LOWER Ext RT] Urgent
Comment:
Reason For Exam: redness/swelling/pain
07/16/23 Dinner
Regular
At Your Request: Full Participation
07/16/23 16:59
Admit/Transfer Patient As Directed
Co-Sign Provider:
Level of Care: Inpatient admission
Assign to:: Medical/Surgical
Physician / Group: jose
Diagnosis: copd exacerbation
Reason for Hospitalization: copd exacerbation
Expected length of stay greater than two midnights?: Yes
ELOS- Estimated Length of Stay in days: 2
I certify the patient meets the requirements for IP care: Yes
Code Status As Directed
Resuscitation Status: Full Code
07/16/23 17:05
Diphenhydramine [Benadryl] 25 mg IV Q4HPRN PRN
Metoclopramide [Reglan] 10 mg IV Q6HPRN PRN
07/16/23 17:06
Diphenhydramine [Benadryl] 25 mg IV NOW STA
Ketorolac [Toradol] 15 mg IV NOW STA
07/16/23 17:07
Furosemide [Lasix] 40 mg IV NOW STA
07/16/23 19:37
Budesonide [Pulmicort] 0.5 mg INH R BIDPRN PRN
Gabapentin [Neurontin] 100 mg PO QIDPRN PRN
Ipratropium/Albuterol Sulfate [Duoneb] 3 ml INH R Q4HPRN PRN
Lidocaine [Lidocaine 4% Patch] 3 patch TOPICAL DAILYPRN PRN
Mupirocin [Bactroban 2% Ointment] 1 applic TOPICAL BIDPRN PRN
07/16/23 19:37
WOUND/OSTOMY CONSULT Routine
Reason for Consult: lymphedema
Activity As Directed
Activity Level: As Tolerated
Intake/ Output As Directed
Frequency: Per unit guidelines
Vital Signs As Directed
Frequency: Per unit guidelines
Copd Education [RESP] Routine
DX Deep Vein Thrombosis Video Routine
07/16/23 20:00
Guaifenesin [Mucinex] 600 mg PO Q12
Heparin 5,000 units SC Q12
Ipratropium/Albuterol Sulfate [Combivent Respimat Inhal [place]] 1 puff INH R QID
Ipratropium/Albuterol Sulfate [Duoneb] 3 ml INH R QID
Lorazepam [Ativan] 0.5 mg PO BID
ciprofloxacin-hydrocortisone [Cipro HC] 3 drop OTIC BID
cycloSPORINE [Restasis 0.05% Ophthalmic Emulsion] 1 drops BOTH EYES BID
07/16/23 22:00
Dexamethasone Sod Phosphate [Decadron] 4 mg IV Q8H
Tiotropium Jones 2.5 Mcg [Spiriva Respimat 2.5 Mcg] 2 puff INH R HS
07/17/23 00:00
Ketorolac [Toradol] 15 mg IV Q6HPRN PRN
07/17/23 05:40
Basic Metabolic Panel IN AM
Complete Blood Count/With Diff IN AM
07/17/23 08:00
Ascorbic Acid [Vitamin C] 500 mg PO DAILY
Azithromycin [Zithromax] 250 mg PO MoWeFr@0800
Cholecalciferol (Vitamin D3) [VITAMIN D3 (cholecalciferol)] 25 mcg PO DAILY
Multivitamin [Theragran] 1 tablet PO DAILY
Spironolactone [Aldactone] 25 mg PO DAILY
Theophylline 24 Hour Release [Uniphyl (24 Hour Extended Release)] 200 mg PO DAILY
Valacyclovir HCl [Valtrex] 500 mg PO DAILY
leflunomide 20 mg PO DAILY
07/19/23 07:00
Alendronate Sodium [Fosamax] 70 mg PO MARTELL@0700
Abnormal Lab Results
07/16/23
12:59
WBC 12.8 H 10^3/uL
(4.8-10.8)
RBC 3.40 L 10^6/uL
(4.20-5.40)
Hgb 10.4 L g/dL
(12.0-16.0)
Hct 34.6 L %
(37.0-47.0)
MCV 101.8 H fL
(81.0-99.0)
MCHC 30.1 L g/dL
(33.0-37.0)
Abs Immat Gran (auto) 0.1 H 10^3/uL
(0-0.05)
Absolute Neuts (auto) 10.5 H 10^3/uL
(1.4-6.5)
Absolute Lymphs (auto) 0.3 L 10^3/uL
(1.2-3.4)
Absolute Monos (auto) 1.8 H 10^3/uL
(0.1-0.6)
Immature Gran % 0.6 H %
(0-0.5)
Neutrophils % 82.1 H %
(42.2-75.2)
Lymphocytes % 2.3 L %
(20.5-51.1)
Monocytes % 14.3 H %
(1.7-9.3)
Chloride 96 L mmol/L
(98-107)
Carbon Dioxide 39 H mmol/L
(22-30)
Creatinine 0.4 L mg/dL
(0.6-1.0)
Glucose 154 H mg/dl
(70-99)
Alkaline Phosphatase 183 H U/L
(38-126)
Total Protein 6.0 L g/dl
(6.3-8.2)
07/16/23 12:59
07/16/23 12:59
Vital Signs
Initial and Last Documented VS:
Initial Vital Signs
Temp Pulse Resp BP Pulse Ox
98.0 F 113 18 139/63 97
07/16/23 12:23 07/16/23 12:23 07/16/23 12:23 07/16/23 12:23 07/16/23 12:23
Last Documented Vital Signs
Temp Pulse Resp BP Pulse Ox
97.8 F 72 18 140/69 93
07/17/23 09:58 07/17/23 09:58 07/17/23 09:58 07/17/23 09:58 07/17/23 09:58
<Carlota Fry PA-C - Last Filed: 07/17/23 11:00>
Orders/Labs/Results
Orders:
Orders
07/16/23 12:29
Electrocardiogram (*1) Urgent
Reason for Study: Bradycardia / Tachycardia
EKG- Treatment ONCE
07/16/23 12:59
CBC/With Diff [Complete Blood Count/With Diff] Urgent
CMP [Comprehensive Metabolic Panel] Urgent
07/16/23 13:19
Butalb/Acetaminophen/Caffeine [Fioricet] 1 tab PO NOW STA
Dexamethasone Sod Phosphate [Decadron] 6 mg IV NOW STA
Ipratropium/Albuterol Sulfate [Duoneb] 3 ml INH R NOW STA
07/16/23 13:31
CR Chest Portable - 1 View Urgent
Comment:
Reason For Exam: sob/hypoxia
Reason Study Needs to be Portable: Patient Unstable
07/16/23 13:47
COVID-19 Antigen Urgent
Source: Nasal Swab
07/16/23 14:33
Legs, Right US [US Periph Venous LOWER Ext RT] Urgent
Comment:
Reason For Exam: redness/swelling/pain
07/16/23 Dinner
Regular
At Your Request: Full Participation
07/16/23 16:59
Admit/Transfer Patient As Directed
Co-Sign Provider:
Level of Care: Inpatient admission
Assign to:: Medical/Surgical
Physician / Group: jose
Diagnosis: copd exacerbation
Reason for Hospitalization: copd exacerbation
Expected length of stay greater than two midnights?: Yes
ELOS- Estimated Length of Stay in days: 2
I certify the patient meets the requirements for IP care: Yes
Code Status As Directed
Resuscitation Status: Full Code
07/16/23 17:05
Diphenhydramine [Benadryl] 25 mg IV Q4HPRN PRN
Metoclopramide [Reglan] 10 mg IV Q6HPRN PRN
07/16/23 17:06
Diphenhydramine [Benadryl] 25 mg IV NOW STA
Ketorolac [Toradol] 15 mg IV NOW STA
07/16/23 17:07
Furosemide [Lasix] 40 mg IV NOW STA
07/16/23 19:37
Budesonide [Pulmicort] 0.5 mg INH R BIDPRN PRN
Gabapentin [Neurontin] 100 mg PO QIDPRN PRN
Ipratropium/Albuterol Sulfate [Duoneb] 3 ml INH R Q4HPRN PRN
Lidocaine [Lidocaine 4% Patch] 3 patch TOPICAL DAILYPRN PRN
Mupirocin [Bactroban 2% Ointment] 1 applic TOPICAL BIDPRN PRN
07/16/23 19:37
WOUND/OSTOMY CONSULT Routine
Reason for Consult: lymphedema
Activity As Directed
Activity Level: As Tolerated
Intake/ Output As Directed
Frequency: Per unit guidelines
Vital Signs As Directed
Frequency: Per unit guidelines
Copd Education [RESP] Routine
DX Deep Vein Thrombosis Video Routine
07/16/23 20:00
Guaifenesin [Mucinex] 600 mg PO Q12
Heparin 5,000 units SC Q12
Ipratropium/Albuterol Sulfate [Combivent Respimat Inhal [place]] 1 puff INH R QID
Ipratropium/Albuterol Sulfate [Duoneb] 3 ml INH R QID
Lorazepam [Ativan] 0.5 mg PO BID
ciprofloxacin-hydrocortisone [Cipro HC] 3 drop OTIC BID
cycloSPORINE [Restasis 0.05% Ophthalmic Emulsion] 1 drops BOTH EYES BID
07/16/23 22:00
Dexamethasone Sod Phosphate [Decadron] 4 mg IV Q8H
Tiotropium Jones 2.5 Mcg [Spiriva Respimat 2.5 Mcg] 2 puff INH R HS
07/17/23 00:00
Ketorolac [Toradol] 15 mg IV Q6HPRN PRN
07/17/23 05:40
Basic Metabolic Panel IN AM
Complete Blood Count/With Diff IN AM
07/17/23 08:00
Ascorbic Acid [Vitamin C] 500 mg PO DAILY
Azithromycin [Zithromax] 250 mg PO MoWeFr@0800
Cholecalciferol (Vitamin D3) [VITAMIN D3 (cholecalciferol)] 25 mcg PO DAILY
Multivitamin [Theragran] 1 tablet PO DAILY
Spironolactone [Aldactone] 25 mg PO DAILY
Theophylline 24 Hour Release [Uniphyl (24 Hour Extended Release)] 200 mg PO DAILY
Valacyclovir HCl [Valtrex] 500 mg PO DAILY
leflunomide 20 mg PO DAILY
07/19/23 07:00
Alendronate Sodium [Fosamax] 70 mg PO MARTELL@0700
Abnormal Lab Results
07/16/23
12:59
WBC 12.8 H 10^3/uL
(4.8-10.8)
RBC 3.40 L 10^6/uL
(4.20-5.40)
Hgb 10.4 L g/dL
(12.0-16.0)
Hct 34.6 L %
(37.0-47.0)
MCV 101.8 H fL
(81.0-99.0)
MCHC 30.1 L g/dL
(33.0-37.0)
Abs Immat Gran (auto) 0.1 H 10^3/uL
(0-0.05)
Absolute Neuts (auto) 10.5 H 10^3/uL
(1.4-6.5)
Absolute Lymphs (auto) 0.3 L 10^3/uL
(1.2-3.4)
Absolute Monos (auto) 1.8 H 10^3/uL
(0.1-0.6)
Immature Gran % 0.6 H %
(0-0.5)
Neutrophils % 82.1 H %
(42.2-75.2)
Lymphocytes % 2.3 L %
(20.5-51.1)
Monocytes % 14.3 H %
(1.7-9.3)
Chloride 96 L mmol/L
(98-107)
Carbon Dioxide 39 H mmol/L
(22-30)
Creatinine 0.4 L mg/dL
(0.6-1.0)
Glucose 154 H mg/dl
(70-99)
Alkaline Phosphatase 183 H U/L
(38-126)
Total Protein 6.0 L g/dl
(6.3-8.2)
07/16/23 12:59
07/16/23 12:59
Vital Signs
Initial and Last Documented VS:
Initial Vital Signs
Temp Pulse Resp BP Pulse Ox
98.0 F 113 18 139/63 97
07/16/23 12:23 07/16/23 12:23 07/16/23 12:23 07/16/23 12:23 07/16/23 12:23
Last Documented Vital Signs
Temp Pulse Resp BP Pulse Ox
97.8 F 72 18 140/69 93
07/17/23 09:58 07/17/23 09:58 07/17/23 09:58 07/17/23 09:58 07/17/23 09:58
<Carlota Fry PA-C - Last Filed: 07/17/23 11:00>
MDM/Problems Addressed
Differential Diagnosis Includes:
COPD exacerbation, bronchitis, pneumonia, viral illness, PE
MDM/Problems Addressed:
Patient is a 72 year old female with history as documented presenting for evaluation of worsening shortness of breath and cough. Recently admitted for cellulitis of right lower leg. Patient denies any chest pain, fevers, GI symptoms. Patient with
increasing O2 requirements at home. She is hypertensive, tachycardic on arrival. Oxygen saturation of 97% on 5L nasal cannula. Physical exam as documented above. Heart rate tachycardic, but regular rhythm. She has decreased breath sounds bilaterally
with some expiratory wheeze. Edema of bilateral lower legs R>L with dressings intact over wounds. Suspect likely COPD exacerbation. Will check basic labs, EKG, chest xray. Given persistence in lower extremity swelling - will get US to r/o DVT.
EKG shows sinus tachycardia without signs of ischemia. Elevation in heart rate may be due to persistent shortness of breath. Will give 6mg decadron, duoneb and reassess.
CBC with mild leukocytosis - attributable to either resolving cellulitis vs chronic steroid use. Mild anemia which appears to be chronic for patient. CMP shows signs of mild alkalosis with elevated bicarb of 39 likely due to hyperventilation.
Otherwise no clinically significant abnormalities.
US shows no evidence of DVT
CXR shows possible trace b/l pleural effusions but no evidence of pneumonia.
Patient with some subjective improvement. On repeat lung examination - she is still moving very little air. breath sounds bilaterally with mild wheezing. Given persisting O2 requirements and shortness of breath - will admit to hospitalist
for acute COPD exacerbation for further management. Discussed with hospitalist.
Chronic conditions affecting care:
COPD, Hypertension
Acute Exacerbation and/or Progression of Chronic Illness:
Acute COPD exacerbation, acutely hypertensive
<Trever Villegas MD - Last Filed: 07/17/23 08:03>
*EKG
Interpreted by ED Provider?: Yes
EKG Intrepretation Date: 07/16/23
Heart Rate: 146
Rate: tachycardiac
Rhythm: sinus
[place]: normal axis
Interval: normal interval
<Carlota Fry PA-C - Last Filed: 07/17/23 11:00>
*Radiology
Radiology exam reviewed: preliminary read by ED provider and radiology read reviewed
*Pulse Oximetry
Patient hypoxic: yes
Comment: on 5L NC
*Learning Facilitator Interpretation
Rate: tachycardiac
Interpretation: normal
Heart Rate: 112
Rhythm: sinus
*Critical Care Note
Total Time (30-74mins, 75-104mins- exclusive of procedures): Not Applicable
<Carlota Fry PA-C - Last Filed: 07/17/23 11:00>
Patient Management
Discussion with other providers: Hospitalist
ED Attending Note
<Trever Villegas MD - Last Filed: 07/17/23 08:03>
ED Attending Note
Patient seen and examined by attending physician: Yes
ED Attending Note:
Patient with history of oxygen dependent COPD, presents to ED secondary to increasing shortness of breath over the past 1 week, along with chronic intermittent cough. Denies fever or chills. Denies chest pain. Denies nausea or vomiting. Denies
diarrhea. Of note, patient is currently on Keflex with 2 more days of treatment left, for ongoing right lower leg infection. Unfortunately, patient states that wound along with redness and swelling is continuing despite antibiotic treatment.
Denies previous history of blood clots. Denies recent travel. Denies back pain. Patient does not take any blood thinning medications. Patient states that she experienced similar shortness of breath approximately 4 years ago when she was admitted
at [facility] and treated for COPD exacerbation.
Physical Exam
General: mild respiratory distress, not acutely ill. afebrile.
Head: nc/at. eomi
Neck: supple. no meningeal signs.
Heart: s1/s2 regular rate and rhythm, no murmur. equal radial pulses.
Lungs: no acute respiratory distress. diminished breath sounds bilaterally with faint expiratory wheezing.
Abdomen: normal bowel sounds. not tender.
Neuro: alert and oriented. no focal neurological deficits
Skin: RLE: erythema/swelling noted with ulcer, with minimal drainage.
Psychiatric: well kept. interactive and cooperative
Extremities: LE b/l edema. no calf tenderness.
History and exam concerning for acute COPD exacerbation along with resolving versus ongoing right lower leg cellulitis. Patient will be admitted for further evaluation and treatment, including IV steroids, nebulizer treatment, along with potential
antibiotic treatment for lower leg wound.
Pt with likely an exacerbation of her migraine headache due to recent stress. Will provide Fioricet which has helped in the past.
Will check right lower leg ultrasound for potential DVT. If positive, will obtain CT angiogram.
-
Portions of this chart may have been created with voice recognition software.� Occasional wrong word or��sound alike� substitutions may have occurred due to the inherent limitations of voice recognition software.
Discharge Plan
Departure
Patient Disposition: Admit
Date of Disposition: 07/16/23
Time of Disposition: 16:08
Presentation/result/management discussed w/ accepting MD/DO: Hospitalist
Discharge Problem:
Acute exacerbation of chronic obstructive pulmonary disease
Interventions
Interventions:
*Risk Screen - Suicide Last Done: 07/16/23 13:00
*General Assessment Last Done: 07/16/23 13:00
*Neglect/Abuse Screening Last Done: 07/16/23 13:00
ED- Fall Risk Assessment Last Done: 07/16/23 13:00
*ED COVID-19 Vaccine History Last Done: 07/16/23 12:23
ED- Cardiac Assessment Last Done: 07/16/23 13:00
ED- Pulmonary Assessment Last Done: 07/16/23 13:00
[2023-07-16 13:06] LABS: % Basophils 0.5 % (0-2); % Eosinophils 0.2 % (0-6); % Immature Granulocytes 0.6 % (0-0.5); % Lymphocytes 2.3 % (20.5-51.1); % Monocytes 14.3 % (1.7-9.3); % Neutrophils 82.1 % (42.2-75.2); Absolute Basophils 0.1 10^3/uL (0-0.2); Absolute Immature Granulocytes 0.1 10^3/uL (0-0.05); Absolute Lymphocytes 0.3 10^3/uL (1.2-3.4); Absolute Monocytes 1.8 10^3/uL (0.1-0.6); Absolute Neutrophils 10.5 10^3/uL (1.4-6.5); Hematocrit 34.6 % (37.0-47.0); Hemoglobin 10.4 g/dL (12.0-16.0); Mean Corp Hgb Conc. 30.1 g/dL (33.0-37.0); Mean Corpuscular Hgb 30.6 pg (27.0-31.0); Mean Corpuscular Volume 101.8 fL (81.0-99.0); Mean Platelet Volume 9.9 fL (7.4-10.4); Nucleated Red Blood Cells % 0 %; Platelet Count 273 10^3/uL (130-400); Red Cell Dist. Width 13.6 % (11.5-14.5); White Blood Cell Count 12.8 10^3/uL (4.8-10.8)
[2023-07-16 13:18] LABS: ALT (SGPT) 35 U/L (0-35); AST (SGOT) 33 U/L (14-36); Albumin 3.5 g/dl (3.5-5.0); Alkaline Phosphatase 183 U/L (38-126); Blood Urea Nitrogen 17 mg/dl (7-17); Calcium 9.2 mg/dl (8.4-10.2); Carbon Dioxide 39 mmol/L (22-30); Chloride 96 mmol/L (98-107); Glucose 154 mg/dl (70-99); Potassium 4.6 mmol/L (3.5-5.1); Sodium 140 mmol/L (135-145); Total Bilirubin 0.5 mg/dl (0.2-1.3); eGFR > 60.00
[2023-07-16] MEDS: DUONEB 3 ML INH ×2 (13:47→21:41)
[2023-07-16] MEDS: FIORICET 1 TAB PO (13:47)
[2023-07-16] MEDS: DECADRON 6 MG IV (13:48)
[2023-07-16 14:11] LABS: COVID-19 Antigen Negative (Negative)
--- NOTE | 2023-07-16 17:08 | HPS.HSE ---
Addendum entered and electronically signed by Kacy Eldridge MD 07/16/23 17:28:
Patient normally on Home Oxygen 5 L.
Original Note:
Family Physician
-
Family Physician: Odalis Maldonado
Chief Complaint
-
shortness of breath
History of Present Illness
72-year-old female past medical history of COPD, migraines, anxiety, rheumatoid arthritis, anemia, hypertension, prediabetes presenting for worsening shortness of breath over the past few days associated with some productive cough. She has some
chest pain associate with cough. Denies any fevers or chills.
Patient was recently admitted in June for erythema of right lower extremity. At that time it was unclear whether she had true infection or just redness and erythema from edema. She was treated with course of Keflex which she completed. Since
then she has been treated with doxycycline and again put on a second course of Keflex which was started on July 01 and to be continued for 3 weeks. The pain and redness and discharge has improved compared to initially but she continues to
complain of bilateral lower extremity edema and some redness of the right lower extremity. She is scheduled to see lymphedema clinic in few weeks as recommended during prior admission.
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 She was also started on spironolactone for this.
Patient has been under a lot of stress because her daughter has been hospitalized and has almost required intubation for pneumonia. She has been suffering from persistent migraine headache for the past month and has appointment with neurology
coming up. She does have some sensitivity to light and nausea.
Medical History
Past Medical History
Past Medical History: Reports Other (COPD, migraines, anxiety, rheumatoid arthritis, anemia, hypertension, prediabetes)
Past Surgical History: Reports Other ( , Gynecological (Hysterectomy, Fibroid removed, ), Orthopedic (Right wrist surgery, Left tibial fracture) and Other (Dental surgery cataracts, ))
Social History
Tobacco: Former Smoker
Alcohol: None
Drug: None
Family History
Family History: Not pertinent
Allergies / Home Medications
Allergies reflects when Allergies were last updated in [facility].
Home Medications with original date entered in [facility]
Allergy/Medication List:
Allergies
Allergy/AdvReac Type Severity Reaction Status Date / Time
mannitol [From Reclast] Allergy Swelling Verified 06/11/23 16:14
water for injection,sterile Allergy Swelling Verified 06/11/23 16:14
[From Reclast]
zoledronic acid Allergy Swelling Verified 06/11/23 16:14
[From Reclast]
Home Medications
albuterol sulfate 90 mcg/actuation aerosol inhaler (ProAir HFA) 2 puff inhalation R Q4HPRN PRN sob 06/27/23
alendronate 70 mg tablet 70 mg PO MARTELL osteoporosis 06/27/23
arformoterol 15 mcg/2 mL solution for nebulization (Brovana) 2 ml inhalation R BIDPRN PRN sob 06/27/23
azithromycin 250 mg tablet 250 mg PO MOWEFR copd 06/27/23
budesonide 0.5 mg/2 mL suspension for nebulization 0.5 mg inhalation R BIDPRN PRN sob 06/27/23
budesonide 160 mcg-glycopyr 9 mcg-formot 4.8 mcg/actuation HFA inhaler (Breztri Aerosphere) 2 inh inhalation R BID Lung/Breathing Issues 06/27/23
emcqknnfsj-ptzntecelyqkd-wqtwmqhm 50 mg-325 mg-40 mg tablet 1 tab PO Q4HPRN PRN migraine 06/27/23
cyclosporine 0.05 % eye drops in a dropperette (Restasis) 1 drp BOTH EYES BID dry eyes 06/27/23
gabapentin 100 mg capsule 100 mg PO QIDPRN PRN nerve pains 06/27/23
ipratropium 0.5 mg-albuterol 3 mg (2.5 mg base)/3 mL nebulization soln 3 ml inhalation R QIDPRN PRN if did not use inhalers 06/27/23
ipratropium 20 mcg-albuterol 100 mcg/actuation mist for inhalation (Combivent Respimat) 1 puff inhalation R QID Lung/Breathing Issues 06/27/23
leflunomide 10 mg tablet 20 mg PO DAILY rheumatoid arthritis 06/27/23
lidocaine 4 % topical patch 3 patch topical DAILYPRN PRN r arm and lumber spine 06/27/23
lorazepam 0.5 mg tablet 0.5 mg PO BID Mental Health 06/27/23
mupirocin 2 % topical ointment 1 applic topical BID PRN b/l feet 06/27/23
prednisone 5 mg tablet 5 mg PO BID rheumatoid arthritis 06/27/23
theophylline 200 mg capsule,extended release 24 hr (Eugene-24) 200 mg PO DAILY copd 06/27/23
tiotropium bromide 2.5 mcg/actuation mist for inhalation (Spiriva Respimat) 2 puff inhalation R HS copd 06/27/23
tocilizumab 400 mg/20 mL (20 mg/mL) intravenous solution (Actemra) 400 mg IV Q4W rheumatoid arthritis 06/27/23
valacyclovir 500 mg tablet 500 mg PO DAILY viral infection 06/27/23
cephalexin 500 mg capsule 500 mg PO QID Cellulitis #20 caps 07/01/23
ciprofloxacin 0.2 %-hydrocortisone 1 % ear drops,suspension (Cipro HC) 3 drp otic (ear) BID Right ear pain #10 mL 07/01/23
ascorbic acid (vitamin C) 500 mg tablet (Vitamin C) 500 mg PO DAILY Supplement 07/16/23
cholecalciferol (vitamin D3) 25 mcg (1,000 unit) tablet (Vitamin D3) 25 mcg PO DAILY Supplement 07/16/23
spironolactone 25 mg tablet 25 mg PO DAILY Blood Pressure 07/16/23
therapeutic multivitamin 1 tab PO DAILY Supplement 07/16/23
torsemide 20 mg tablet 20 mg PO DAILY Fluid Retention/Swelling 07/16/23
Review of Systems
-
History Source: Patient
A 12 point ROS was completed and negative except as noted: Yes
Constitutional: Reports No Symptoms
EENT: Reports No Symptoms
Respiratory: Reports See HPI
Cardiac: Reports No Symptoms
Abdomen/GI: Reports No Symptoms
: Reports No Symptoms
Musculoskeletal: Reports No Symptoms
Skin: Reports No Symptoms
Neurological: Reports See HPI
Endocrine: Reports No Symptoms
Hematologic/Lymphatic: Reports No Symptoms
Psych: Reports No Symptoms
Physical Exam
Vital Signs
Vital Signs
Temp Pulse Resp BP Pulse Ox
98.0 F 110 22 118/76 96
07/16/23 12:23 07/16/23 14:45 07/16/23 14:45 07/16/23 14:00 07/16/23 14:45
Physical Exam
General: Well Developed, Well Nourished and No Apparent Distress
HEENT: NormoCephalic, Moist mucous membranes and Atraumatic
Respiratory: Clear
Cardiac: S1/S2 and Regular Rhythm; No Murmur or Rub
GI: Soft, Non Tender, Non Distended and Normal Bowel Sounds; No Organomegaly
Rectal: Deferred by Provider
Musculoskeletal: No Clubbing, No Cyanosis and No Edema
Skin: Other (right lower exteemity erythema, no wound present, bilteral swelling ); No Rash
Neuro: Nonfocal/grossly intact
Laboratory Results
-
07/16/23 12:59
07/16/23 12:59
Laboratory Results
Total Bilirubin 0.5 mg/dl (0.2-1.3) 07/16/23 12:59
AST 33 U/L (14-36) 07/16/23 12:59
ALT 35 U/L (0-35) 07/16/23 12:59
Alkaline Phosphatase 183 U/L (38-126) H 07/16/23 12:59
Data Reviewed
-
Lab Data: Labs Reviewed by me
Old Records: Reviewed
Impression/Plan
-
IMPRESSION:
PLAN:
# COPD exacerbation
-Chest x-ray shows possible trace bilateral pleural effusions
-DuoNebs every 6 hours
-Dexamethasone 4 mg every 8
-Mucinex
-Resume chronic azithromycin
-Continue theophylline
#Right lower extremity erythema likely due to lymphedema/edema swelling
-Has been treated with course of Keflex, doxycycline and another course of Keflex for 3 weeks which is more than adequate treatment
-Will not require further antibiotic
-Venous ultrasound negative for DVT
-Give IV Lasix dose
-Wound care
-Outpatient follow-up with lymphedema clinic
-IV Lasix dose, followed by usual torsemide dose
-Continue spironolactone
# Persistent ongoing headaches secondary to migraine
-Will give Toradol, Benadryl, and as needed Reglan if nausea
-Outpatient follow-up with neurology for migraine prophylaxis
Anxiety
-Continue Ativan
Rheumatoid arthritis
-On Actemra
-Continue leflunomide
Anemia of chronic disease
-Hemoglobin stable
Prediabetes
-Not on treatment
Osteoporosis
-Continue alendronate
Herpes prophylaxis
-Continue valacyclovir
Former smoker
Full code
DVT prophylaxis�heparin
Regular diet
[2023-07-16] MEDS: BENADRYL 25 MG IV (17:56)
[2023-07-16] MEDS: LASIX 40 MG IV (17:57)
[2023-07-16] MEDS: TORADOL 15 MG IV (17:57)
[2023-07-16] MEDS: ATIVAN PO (20:28)
[2023-07-16] MEDS: HEPARIN SC (20:44)
[2023-07-16] MEDS: MUCINEX 600 MG PO (20:52)
[2023-07-16] MEDS: DECADRON 4 MG IV (20:52)
[2023-07-16] MEDS: SPIRIVA RESPIMAT 2.5 MCG 2 PUFF INH (21:55)
[2023-07-17] MEDS: TORADOL 15 MG IV ×2 (01:42→12:08)
[2023-07-17] MEDS: DUONEB 3 ML INH ×5 (01:44→19:51)
[2023-07-17] MEDS: RESTASIS 0.05% OPHTHALMIC EMULSION BOTH EYES (02:00)
[2023-07-17 06:13] LABS: % Basophils 0.4 % (0-2); % Immature Granulocytes 0.4 % (0-0.5); % Lymphocytes 4.4 % (20.5-51.1); % Monocytes 11.1 % (1.7-9.3); % Neutrophils 83.7 % (42.2-75.2); Absolute Lymphocytes 0.4 10^3/uL (1.2-3.4); Absolute Monocytes 0.9 10^3/uL (0.1-0.6); Absolute Neutrophils 6.8 10^3/uL (1.4-6.5); Hemoglobin 10.2 g/dL (12.0-16.0); Mean Corp Hgb Conc. 29.1 g/dL (33.0-37.0); Mean Corpuscular Hgb 30.4 pg (27.0-31.0); Mean Corpuscular Volume 104.5 fL (81.0-99.0); Nucleated Red Blood Cells % 0 %; Platelet Count 261 10^3/uL (130-400); Red Blood Cell Count 3.35 10^6/uL (4.20-5.40); Red Cell Dist. Width 13.4 % (11.5-14.5); White Blood Cell Count 8.1 10^3/uL (4.8-10.8)
[2023-07-17] MEDS: DECADRON 4 MG IV ×3 (06:13→22:30)
[2023-07-17] MEDS: NEURONTIN 100 MG PO ×2 (06:27→20:36)
[2023-07-17 06:46] LABS: Blood Urea Nitrogen 31 mg/dl (7-17); Calcium 9.2 mg/dl (8.4-10.2); Chloride 92 mmol/L (98-107); Estimated Creatinine Clearance 62 ml/min; Glucose 208 mg/dl (70-99); Potassium 4.9 mmol/L (3.5-5.1); Sodium 139 mmol/L (135-145); eGFR > 60.00
[2023-07-17 06:57] LABS: Carbon Dioxide 38 mmol/L (22-30)
[2023-07-17] MEDS: MUCINEX 600 MG PO ×2 (08:54→20:23)
[2023-07-17] MEDS: VITAMIN D3 (cholecalciferol) 25 MCG PO (08:55)
[2023-07-17] MEDS: VALTREX 500 MG PO (08:55)
[2023-07-17] MEDS: THERAGRAN 1 TABLET PO (08:56)
[2023-07-17] MEDS: ALDACTONE 25 MG PO (08:56)
[2023-07-17] MEDS: VITAMIN C 500 MG PO (08:58)
[2023-07-17] MEDS: UNIPHYL 200 MG PO (08:58)
[2023-07-17] MEDS: ZITHROMAX 250 MG PO (09:02)
--- NOTE | 2023-07-17 09:02 | W.PN.HOSP.TC ---
Today's Communication/Plan
-
see bold
Assessment / Plan
Assessment / Plan
Gen: NAD, AAOx3.
Eyes: EOMI, PERRLA, no scleral icterus.
Neck: supple.
CV: RRR with frequent premature beats, +S1/S2, no m/r/g.
Resp: other than transmitted upper airway wheezing, CTAB
Abd: +BS, soft, NT, ND
Neuro: CN 2-12 intact, non-focal.
Psych: Normal mood and affect.
Acute COPD exacerbation:
-Chronic hypoxemic respiratory failure on 5L NC O2 at home
-Chest x-ray shows possible trace bilateral pleural effusions
-DuoNebs every 6 hours
-Dexamethasone 4 mg every 8
-Mucinex
-cont chronic azithromycin
-Continue theophylline
-c/s pulm
RLE erythema likely due to lymphedema/edema swelling
-Has been treated with course of Keflex, doxycycline and another course of Keflex for 3 weeks which is more than adequate treatment
-Will not require further antibiotic
-Venous ultrasound negative for DVT
-s/p IV Lasix for lymphedema, cont home torsemide
-Wound care
-Outpatient follow-up with lymphedema clinic
-Continue spironolactone
Persistent ongoing headaches secondary to migraine
-s/p Toradol/Benadryl,
-PRN Reglan
-Outpatient follow-up with neurology for migraine prophylaxis
Other problems:
Anxiety: Continue Ativan
Rheumatoid arthritis: on Actemra outpt, cont leflunomide
Anemia of chronic disease
Prediabetes
Osteoporosis: Continue alendronate
Herpes prophylaxis: Continue valacyclovir
Former smoker
FULL/heparin
Anticipated Discharge: > 48 hours
Subjective/Interval History
-
Date of Service: July 17, 2023
c/o SOB
Objective Data
-
Labs:
Laboratory Results
07/17/23
05:40
WBC 8.1
Hgb 10.2 L
Hct 35.0 L
Plt Count 261
Sodium 139
Potassium 4.9
Chloride 92 L
Carbon Dioxide 38 H
BUN 31 H
Creatinine 0.6
Glucose 208 H
Calcium 9.2
Vital Signs:
Vital Signs
Temp Pulse Resp BP Pulse Ox
98.0 F 88 18 112/64 100
07/16/23 12:23 07/17/23 07:17 07/17/23 07:17 07/16/23 22:00 07/17/23 07:17
I&O
07/16/23 07/17/23 07/18/23
06:59 06:59 06:59
Intake Total 240 / 240
Balance 240 / 240
[2023-07-17] MEDS: HEPARIN 5000 UNITS SC ×2 (09:06→20:23)
[2023-07-17] MEDS: RESTASIS 0.05% OPHTHALMIC EMULSION 1 DROPS BOTH EYES ×2 (09:07→20:23)
[2023-07-17] MEDS: ATIVAN 0.5 MG PO ×2 (09:07→20:23)
--- NOTE | 2023-07-17 09:41 | WOUNDNOTE ---
[facility] RN note: Patient admitted with COPD exacerbation
See H&P for complete history.
PMH: COPD, 02 dependent, anemia, RA, migraine
Wound Location and type/assessment: Patient admitted with: LLE superficial friable wound that she reports opens intermittently with large amounts of sanguinous drainage. [facility] to keep scabbed area covered at all time.
Bilateral legs are dry with venous stasis changes, +2 edema. Left leg with scabbed wound that patient reports opens often and bleeds easily. + pulses bilaterally. Patient demonstrates ability to stand with walker and ambulate to BR. Reports fair
appetite. Heels and sacrum intact.
Pressure redistribution devices in place: Versa Care with Accumax
Plan: Local wound care to wound on LE. Lotion and compression applied bilaterally. Lotion to dry skin on LE daily. Patient has an appointment and lymphedema clinic. Will confirm orders with hospitalist and update nurse. Updated care plan and
will follow as needed.
[2023-07-17 09:58] VITALS: BP 140/69
--- NOTE | 2023-07-17 10:08 | CON.PUL ---
Consultation
Consultation Request
Date/Time Consultation Requested: 07/17/2023-10 AM
Date/Time Consultation Performed: 07/17/2023-10 AM
Requesting Provider: Hospitalist
Performing Provider: Dr. Guevara
Reason for Consultation: COPD exacerbation
Medical History
-
Chief Complaint: Shortness of breath
History of Present Illness:
72-year-old female with underlying severe COPD, chronic lower extremity swelling, prediabetes, anxiety and rheumatoid arthritis who was recently discharged 07/02/2023 after being treated for right lower extremity cellulitis and significant lymphedema
presents with increasing shortness of breath noted to have a COPD exacerbation-pulmonary consulted for shortness of breath/COPD exacerbation 07/17/2023. 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 She also goes to [facility]. Her
daughter had a lengthy [facility] hospitalization and she wanted to come to [place] currently. She admits to 1 week of increasing shortness of breath, chest congestion, wheezing, nonproductive cough, dyspnea on exertion and increased rescue
inhaler use. She did not complain of any abdominal pain but has chronic lower extremity edema and they are wrapped and goes to wound care for this.
Past Medical History
Past Medical History: None (COPD-severe on chronic O2. Migraines. Chronic lower extremity lymphedema. Anxiety. Rheumatoid Tritus. Anemia. Hypertension. Prediabetes. . Hysterectomy. Right wrist surgery. Left tibial fracture
surgery. Dental surgery. Cataract.)
Social History
Tobacco: Former Smoker ([id number] quit 2005)
Alcohol: None
Drug: None
Personal:
Living: With Family
Occupational Exposures: No known asbestos exposure
Environmental Exposures: No known tuberculosis exposure
Family History
Family History: Reviewed & Not Pertinent
Allergies / Home Medications
Allergies
Allergy/AdvReac Type Severity Reaction Status Date / Time
mannitol [From Reclast] Allergy Swelling Verified 06/11/23 16:14
water for injection,sterile Allergy Swelling Verified 06/11/23 16:14
[From Reclast]
zoledronic acid Allergy Swelling Verified 06/11/23 16:14
[From Reclast]
Home Medications
Medication Instructions Recorded Confirmed Last Taken Type
albuterol sulfate 90 mcg/actuation 2 puff inhalation R Q4HPRN PRN sob 06/27/23 07/16/23 Unknown History
aerosol inhaler (ProAir HFA)
alendronate 70 mg tablet 70 mg PO MARTELL osteoporosis 06/27/23 07/16/23 07/12/23 History
arformoterol 15 mcg/2 mL solution 2 ml inhalation R BIDPRN PRN sob 06/27/23 07/16/23 Unknown History
for nebulization (Brovana)
azithromycin 250 mg tablet 250 mg PO MOWEFR copd 06/27/23 07/16/23 07/15/23 History
budesonide 0.5 mg/2 mL suspension 0.5 mg inhalation R BIDPRN PRN sob 06/27/23 07/16/23 Unknown History
for nebulization
budesonide 160 mcg-glycopyr 9 2 inh inhalation R BID 06/27/23 07/16/23 07/15/23 History
mcg-formot 4.8 mcg/actuation HFA Lung/Breathing Issues
inhaler (Breztri Aerosphere)
vywljmuhxi-hrxfmvgbxpxiz-wtjliays 1 tab PO Q4HPRN PRN migraine 06/27/23 07/16/23 Unknown History
50 mg-325 mg-40 mg tablet
cyclosporine 0.05 % eye drops in a 1 drp BOTH EYES BID dry eyes 06/27/23 07/16/23 07/15/23 History
dropperette (Restasis)
gabapentin 100 mg capsule 100 mg PO QIDPRN PRN nerve pains 06/27/23 07/16/23 07/15/23 History
ipratropium 0.5 mg-albuterol 3 mg 3 ml inhalation R QIDPRN PRN if 06/27/23 07/16/23 Unknown History
(2.5 mg base)/3 mL nebulization did not use inhalers
soln
ipratropium 20 mcg-albuterol 100 1 puff inhalation R QID 06/27/23 07/16/23 07/15/23 History
mcg/actuation mist for inhalation Lung/Breathing Issues
(Combivent Respimat)
leflunomide 10 mg tablet 20 mg PO DAILY rheumatoid arthritis 06/27/23 07/16/23 07/15/23 History
lidocaine 4 % topical patch 3 patch topical DAILYPRN PRN r arm 06/27/23 07/16/23 Unknown History
and lumber spine
lorazepam 0.5 mg tablet 0.5 mg PO BID Mental Health 06/27/23 07/16/23 07/15/23 History
mupirocin 2 % topical ointment 1 applic topical BID PRN b/l feet 06/27/23 07/16/23 Unknown History
prednisone 5 mg tablet 5 mg PO BID rheumatoid arthritis 06/27/23 07/16/23 07/15/23 History
theophylline 200 mg 200 mg PO DAILY copd 06/27/23 07/16/23 07/15/23 History
capsule,extended release 24 hr
(Eugene-24)
tiotropium bromide 2.5 2 puff inhalation R HS copd 06/27/23 07/16/23 07/15/23 History
mcg/actuation mist for inhalation
(Spiriva Respimat)
tocilizumab 400 mg/20 mL (20 400 mg IV Q4W rheumatoid arthritis 06/27/23 07/16/23 Unknown History
mg/mL) intravenous solution
(Actemra)
valacyclovir 500 mg tablet 500 mg PO DAILY viral infection 06/27/23 07/16/23 07/15/23 History
cephalexin 500 mg capsule 500 mg PO QID Cellulitis #20 caps 07/01/23 07/16/23 07/16/23 Rx
ciprofloxacin 0.2 %-hydrocortisone 3 drp otic (ear) BID Right ear 07/01/23 07/16/23 07/15/23 Rx
1 % ear drops,suspension (Cipro HC) pain #10 mL
ascorbic acid (vitamin C) 500 mg 500 mg PO DAILY Supplement 07/16/23 07/16/23 07/15/23 History
tablet (Vitamin C)
cholecalciferol (vitamin D3) 25 25 mcg PO DAILY Supplement 07/16/23 07/16/23 07/15/23 History
mcg (1,000 unit) tablet (Vitamin
D3)
spironolactone 25 mg tablet 25 mg PO DAILY Blood Pressure 07/16/23 07/16/23 07/15/23 History
therapeutic multivitamin 1 tab PO DAILY Supplement 07/16/23 07/16/23 07/15/23 History
torsemide 20 mg tablet 20 mg PO DAILY Fluid 07/16/23 07/16/23 07/15/23 History
Retention/Swelling
Review of Systems
-
Unable to Obtain full review of systems at this time due to: Other (Per HPI)
Vitals / Labs / Diagnostic Testing
Vital Signs
Temp Pulse Resp BP Pulse Ox
98.0 F 88 18 112/64 100
07/16/23 12:23 07/17/23 07:17 07/17/23 07:17 07/16/23 22:00 07/17/23 07:17
Lab Data
07/17/23 05:40
07/17/23 05:40
Diagnostic Testing:
Physical Exam
-
Exam:
Well-nourished and well-developed in no apparent distress
HEENT-atraumatic, normocephalic
Neck-supple, no JVD, no bruit
Heart-regular rate and rhythm-no murmurs, rubs or gallops
Chest with diminished breath sounds, prolonged expiratory time, expiratory wheezes and no crackles
Abdomen-soft, nontender, nondistended, no hepatosplenomegaly
Extremities-no cyanosis, clubbing, 2+ bilateral lower extremity edema, legs wrapped
Integument-intact, no rashes, lesions or ecchymosis
Neurology-alert and oriented, nonfocal motor and sensory exam
Assessment
-
72-year-old female with underlying severe COPD, chronic lower extremity swelling, prediabetes, anxiety and rheumatoid arthritis who was recently discharged 07/02/2023 after being treated for right lower extremity cellulitis and significant lymphedema
presents with increasing shortness of breath noted to have a COPD exacerbation-pulmonary consulted for shortness of breath/COPD exacerbation 07/17/2023.
Assessment
COPD-suspect Gold stage IV with acute exacerbation
Chronic hypercapnia suspected
Trace bilateral pleural effusions
Chronic bilateral lower extremity right greater than left edema/lymphedema
Persistent headaches-migraine
Azdbyj-zljdozyaeu-emsyrjnhuc 10.2
Hyperglycemia-blood sugar 208
Conditions present prior to admission:
COPD-severe on chronic O2-followed at [facility]-Dr. Fisher, chronic O2, Brovana, budesonide and Combivent as needed, chronic azithromycin, also followed at [facility]
Chronic hypercapnia-ABG 08/2021--48/59/7 0.43
Migraines.
Chronic lower extremity lymphedema.
Anxiety.
Rheumatoid arthritis.
Anemia.
Hypertension.
Prediabetes.
. Hysterectomy. Right wrist surgery. Left tibial fracture surgery. Dental surgery. Cataract.
Plan
Patient requires admission for severe COPD exacerbation and respiratory failure
Supplemental oxygen as needed
Consider ABG
BiPAP if needed
High flow oxygen if appropriate
Duo nebs
Pulmicort nebulizers
Home nebulizers-Brovana and budesonide in addition to Combivent as needed
Mucolytic's
Decadron 4 mg IV every 8 hours
Incentive spirometry
Acapella
Consider vest if difficulties mobilizing secretions
Consider chest physiotherapy if difficulties mobilizing secretions
Check cultures
Patient on chronic azithromycin
No obvious signs of lower respiratory tract bacterial infection
Monitor leukocytosis
Monitor blood sugars
Insulin supplementation as needed
Wound care nursing for severe bilateral lymphedema and recent lower extremity cellulitis
Torsemide recently increased in addition to spironolactone
Anxiolytics as needed
Patient reports severe stress as daughter which she explains is on Medicaid hospitalized for MRSA pneumonia was intubated diagnosed with tracheomalacia and recently discharged from [facility] and the reason why she did not want to go to [facility]
Hospital
DVT prophylaxis-on heparin
Early nutrition
Early mobilization
Reviewed with primary team and emergency room nursing
Outpatient pulmonary jejdgs-pk-Cu. Crocetti at [facility] As well as [facility]
Diagnostic data:
Chest x-ray 05/31/2023-COPD, NAD
Chest x-ray 06/26/2023-COPD, NAD
Chest x-ray 07/16/2023-trace bilateral pleural effusions, COPD changes
Data Reviewed
-
EKG: Report reviewed by me
Radiology: Report reviewed by me
Medical Tests (Nuc Med, Echo etc): Report reviewed by me
Labs: Labs reviewed by me
Old Records: Reviewed
Total Time Spent with Patient (in minutes): 55
--- NOTE | 2023-07-17 10:14 | PTCARENOTE ---
pt is an ED hold, pt arrived with 4L of 02 and is on 4L 02 at home, pt is ambulatory with a r.w, pt is medsurg and has call colon in reach, will continue to monitor.
[2023-07-17] MEDS: BENADRYL 25 MG IV (12:07)
[2023-07-17] MEDS: DEMADEX 20 MG PO (12:10)
[2023-07-17 14:47] VITALS: BP 157/81
[2023-07-17] MEDS: SPIRIVA RESPIMAT 2.5 MCG 2 PUFF INH (19:51)
[2023-07-17 23:53] VITALS: BP 124/77
[2023-07-18] MEDS: DUONEB 3 ML INH ×5 (04:13→19:43)
[2023-07-18] MEDS: TORADOL 15 MG IV ×2 (05:38→23:25)
[2023-07-18] MEDS: DECADRON 4 MG IV (05:40)
[2023-07-18] MEDS: FLUSH (NSS) 1 FLUSH IV (05:40)
[2023-07-18 07:58] VITALS: BP 133/71
[2023-07-18] MEDS: MUCINEX 600 MG PO ×2 (08:52→20:38)
[2023-07-18] MEDS: VALTREX 500 MG PO (08:52)
[2023-07-18] MEDS: ALDACTONE 25 MG PO (08:53)
[2023-07-18] MEDS: VITAMIN D3 (cholecalciferol) 25 MCG PO (08:54)
[2023-07-18] MEDS: RESTASIS 0.05% OPHTHALMIC EMULSION 1 DROPS BOTH EYES ×2 (08:55→20:38)
[2023-07-18] MEDS: UNIPHYL 200 MG PO (08:55)
[2023-07-18] MEDS: VITAMIN C 500 MG PO (08:56)
[2023-07-18] MEDS: THERAGRAN 1 TABLET PO (08:56)
[2023-07-18] MEDS: DEMADEX 20 MG PO (08:56)
[2023-07-18] MEDS: ATIVAN 0.5 MG PO ×2 (08:57→20:38)
[2023-07-18] MEDS: HEPARIN 5000 UNITS SC ×2 (10:21→20:37)
--- NOTE | 2023-07-18 10:28 | W.PN.HOSP.TC ---
Today's Communication/Plan
-
In my opinion a large degree of the patient's symptoms is due to anxiety as well as likely paradoxical vocal cord dysfunction patient is on her baseline flow rate of oxygen. If okay with pulmonary, d/c home.
Assessment / Plan
Assessment / Plan
Gen: remains NAD, AAOx3.
Eyes: EOMI, PERRLA, no scleral icterus.
Neck: supple.
CV: RRR,, +S1/S2, no m/r/g.
Resp: other than transmitted upper airway wheezing (improved from yesterday), CTAB
Abd: +BS, soft, NT, ND
Neuro: CN 2-12 intact, non-focal.
Psych: anxious
Acute COPD exacerbation:
-Chronic hypoxemic respiratory failure on 5L NC O2 at home
-Chest x-ray shows possible trace bilateral pleural effusions
-Mucinex
-cont chronic azithromycin
-Continue theophylline
-pulm following
-cont IV Decadron/DuoNebs for now. In my opinion a large degree of the patient's symptoms is due to anxiety as well as likely paradoxical vocal cord dysfunction patient is on her baseline flow rate of oxygen. If okay with pulmonary, d/c home.
RLE erythema likely due to lymphedema/edema swelling
-Has been treated with course of Keflex, doxycycline and another course of Keflex for 3 weeks which is more than adequate treatment
-Will not require further antibiotic
-Venous ultrasound negative for DVT
-s/p IV Lasix for lymphedema, cont home torsemide
-Wound care
-Outpatient follow-up with lymphedema clinic
-Continue spironolactone
Persistent ongoing headaches secondary to migraine
-s/p Toradol/Benadryl
-PRN Reglan
-Outpatient follow-up with neurology for migraine prophylaxis
Other problems:
Anxiety: Continue Ativan
Rheumatoid arthritis: on Actemra outpt, cont leflunomide
Anemia of chronic disease
Prediabetes
Osteoporosis: Continue alendronate
Herpes prophylaxis: Continue valacyclovir
Former smoker
FULL/heparin
Anticipated Discharge: Today
Subjective/Interval History
-
Date of Service: July 18, 2023
Objective Data
-
Vital Signs:
Vital Signs
Temp Pulse Resp BP Pulse Ox
98.2 F 110 16 133/77 100
07/18/23 07:58 07/18/23 08:53 07/18/23 07:58 07/18/23 08:53 07/18/23 07:58
I&O
07/17/23 07/18/23 07/19/23
06:59 06:59 07:59
Intake Total 240 / 240 680 / 680
Balance 240 / 240 680 / 680
--- NOTE | 2023-07-18 12:08 | W.PN.PUL3 ---
Today's Communication / Plan
-
Extensively discussed case with patient, her and her daughter (via telephone)
Most of her care can be transitioned to home, she was not ready to leave
is concerned about infection while inpatient and I feel her best course would be to be at home to avoid infections (as she would still be at risk even in a private room)
Daughter is on her way in to discuss with her mother, this may push off discharge until tomorrow
Will transition her steroids to oral dose
Assessment
-
72-year-old female with underlying severe COPD, chronic lower extremity swelling, prediabetes, anxiety and rheumatoid arthritis who was recently discharged 07/02/2023 after being treated for right lower extremity cellulitis and significant lymphedema
presents with increasing shortness of breath noted to have a COPD exacerbation-pulmonary consulted for shortness of breath/COPD exacerbation 07/17/2023.
COPD-suspect Gold stage IV with acute exacerbation
Chronic hypercapnia suspected
Trace bilateral pleural effusions
Chronic bilateral lower extremity right greater than left edema/lymphedema
Persistent headaches-migraine
Ylyqtl-ivivcogjvs-thyixyvalb 10.2
Hyperglycemia-blood sugar 208
Conditions present prior to admission:
COPD-severe on chronic O2-followed at [facility]-Dr. Fisher, chronic O2, Brovana, budesonide and Combivent as needed, chronic azithromycin, also followed at [facility]
Chronic hypercapnia-ABG 08/2021--48/59/7 0.43
Migraines.
Chronic lower extremity lymphedema.
Anxiety.
Rheumatoid arthritis.
Anemia.
Hypertension.
Prediabetes.
. Hysterectomy. Right wrist surgery. Left tibial fracture surgery. Dental surgery. Cataract.
Plan
She is admitted for AECOPD, on IV steroids
Supplemental oxygen as needed, she is back to baseline use of 5L NC
She notes ongoing desaturation to 6L with exertion, but she also has been doing this at home
She has showed me prior PFT, FEV 0.41L which confirms very poor function
We discussed at length the resultant course of someone at end-stage COPD including frequent hospitalizations, prednisone dependence, chronic SOB, frequent infections
She notes that this is only her second hospitalization in 2 years
She was told in the past she was not a candidate for advanced treatment at [place]
Duo nebs
Pulmicort nebulizers
Home nebulizers-Brovana and budesonide in addition to Combivent as needed
Mucolytic's
Decadron 4 mg IV every 8 hours--this can be changed to prednisone course
Incentive spirometry
Acapella
Consider vest if difficulties mobilizing secretions
Consider chest physiotherapy if difficulties mobilizing secretions
Check cultures
Patient on chronic azithromycin
No obvious signs of lower respiratory tract bacterial infection
Monitor leukocytosis
Monitor blood sugars
Insulin supplementation as needed
Wound care nursing for severe bilateral lymphedema and recent lower extremity cellulitis
Torsemide recently increased in addition to spironolactone
Anxiolytics as needed
Patient reports severe stress as daughter which she explains is on Medicaid hospitalized for MRSA pneumonia was intubated diagnosed with tracheomalacia and recently discharged from [facility] and the reason why she did not want to go to [facility]
Hospital
DVT prophylaxis-on heparin
Early nutrition
Early mobilization
Reviewed with primary team/I agree most of her current care/treatment can be transitioned to home
I also reviewed this extensively with patient, her and then again on the phone with her daughter >30 mins
Outpatient pulmonary [id number] at [facility] As well as [facility]
Discharge planning per team
Diagnostic data:
Chest x-ray 05/31/2023-COPD, NAD
Chest x-ray 06/26/2023-COPD, NAD
Chest x-ray 07/16/2023-trace bilateral pleural effusions, COPD changes
Total time on this encounter 51 mins.
Subjective Data
-
Date of Service:
Date of Service: July 18, 2023
Chief Complaint: Pulmonary Follow Up
Subjective:
patient seen and examined
at bedside
remains on 5L NC which is baseline
she is very anxious appearing
Objective Data
Data Reviewed
Vital Signs / I&O / Oxygen:
Vital Signs
Temp Pulse Resp BP Pulse Ox
98.2 F 115 18 133/77 97
07/18/23 07:58 07/18/23 11:27 07/18/23 11:27 07/18/23 08:53 07/18/23 08:00
Intake and Output
07/17/23 07/18/23 07/19/23
06:59 06:59 07:59
Intake Total 240 / 240 680 / 680
Balance 240 / 240 680 / 680
SaO2 97
Nasal Cannula flow liters per 5
minute
Physical Exam
General: Other (NAD, anxious appearing)
HEENT: Normocephalic, Anicteric and Moist Mucous Membranes
Cardiovascular: S1-S2, Irregular Rhythm and Peripheral Edema
Respiratory: Wheeze (mild bilateral) and Non-Labored Respirations
GI: Soft, Non Distended and Non Tender
Neurology: Awake, Alert, Oriented, AO x 3 and No Motor Deficits
Skin: Warm and Dry
Labs/Micro/Reports
Lab Data
07/17/23 05:40
07/17/23 05:40
[2023-07-18] MEDS: DECADRON IV (14:42)
[2023-07-18 15:15] VITALS: BP 133/63
[2023-07-18] MEDS: SPIRIVA RESPIMAT 2.5 MCG 2 PUFF INH (19:43)
[2023-07-18] MEDS: BENADRYL 25 MG IV (20:36)
[2023-07-18 23:19] VITALS: BP 101/59
[2023-07-19] MEDS: FOSAMAX 70 MG PO (06:09)
--- NOTE | 2023-07-19 08:22 | W.PN.HOSP.TC ---
Addendum entered and electronically signed by Ryley Dawson MD 07/19/23 12:01:
CXR: Chronic obstructive pulmonary disease. Minimal bilateral pleural effusions.
Medically cleared for discharge.
Addendum entered and electronically signed by Ryley Dawson MD 07/19/23 11:02:
Total time spent on d/c = 34 min. This included today's physical exam, progress note, review of laboratory and diagnostic data, preparation of discharge documents and prescriptions, and discussions about the pt's hospital course and discharge plan
with the patient and other rn medical surgical involved in the patient's care.
Original Note:
Today's Communication/Plan
-
Check CXR, likely d/c home after
Assessment / Plan
Assessment / Plan
Gen: appears mildly SOB upon returning from the bathroom, AAOx3, appears chronically ill.
Eyes: EOMI, PERRLA, no scleral icterus.
Neck: supple.
CV: tachy, reg rhythm with occasional premature beats, +S1/S2, no m/r/g.
Resp: other than transmitted upper airway wheezing (slightly worse than yesterday), CTAB
Abd: +BS, soft, NT, ND
Neuro: CN 2-12 intact, non-focal.
Psych: anxious
Acute COPD exacerbation:
-Chronic hypoxemic respiratory failure on 5L NC O2 at home, currently on 4L NC O2
-Chest x-ray (single view on admission) shows possible trace bilateral pleural effusions
-Mucinex
-cont chronic azithromycin
-Continue theophylline
-pulm following
-was on IV Decadron, now transitioned to PO Prednisone
-In my opinion a large degree of the patient's symptoms is due to anxiety as well as likely paradoxical vocal cord dysfunction. The patient is on her baseline flow rate of oxygen.
-pt requesting CXR, will check 2-view
RLE erythema likely due to lymphedema/edema swelling
-Has been treated with course of Keflex, doxycycline and another course of Keflex for 3 weeks which is more than adequate treatment
-Will not require further antibiotic
-Venous ultrasound negative for DVT
-s/p IV Lasix for lymphedema, cont home torsemide
-Wound care
-Outpatient follow-up with lymphedema clinic
-Continue spironolactone
Persistent ongoing headaches secondary to migraine
-s/p Toradol/Benadryl
-PRN Reglan
-Outpatient follow-up with neurology for migraine prophylaxis
Other problems:
Anxiety: Continue Ativan
Rheumatoid arthritis: on Actemra outpt, cont leflunomide
Anemia of chronic disease
Prediabetes
Osteoporosis: Continue alendronate
Herpes prophylaxis: Continue valacyclovir
Former smoker
FULL/heparin
Anticipated Discharge: Today
Subjective/Interval History
-
Date of Service: July 19, 2023
Patient reports her shortness of breath is worse than yesterday. She states that she was brought in mask today that had an odor and due to her multiple allergies she thinks that that odor was due to something on the mass that caused her to have her
reaction and become short of breath.
Objective Data
-
Vital Signs:
Vital Signs
Temp Pulse Resp BP Pulse Ox
98.8 F 106 22 101/59 99
07/18/23 23:19 07/18/23 23:19 07/18/23 23:19 07/18/23 23:19 07/18/23 23:19
I&O
07/18/23 07/19/23 07/20/23
05:59 06:59 06:59
Intake Total
Balance
[2023-07-19] MEDS: DUONEB 3 ML INH ×3 (08:23→16:12)
--- NOTE | 2023-07-19 09:08 | PTCARENOTE ---
Patient didn't want me to do her vitals informed Nurse. Sent email to management
[2023-07-19] MEDS: MUCINEX 600 MG PO (09:30)
[2023-07-19] MEDS: UNIPHYL 200 MG PO (09:30)
[2023-07-19] MEDS: ATIVAN 0.5 MG PO (09:30)
[2023-07-19] MEDS: VITAMIN C 500 MG PO (09:30)
[2023-07-19] MEDS: DEMADEX 20 MG PO (09:30)
[2023-07-19] MEDS: HEPARIN 5000 UNITS SC (09:30)
[2023-07-19] MEDS: VALTREX 500 MG PO (09:30)
[2023-07-19] MEDS: DELTASONE 50 MG PO (09:30)
[2023-07-19] MEDS: RESTASIS 0.05% OPHTHALMIC EMULSION 1 DROPS BOTH EYES (09:30)
[2023-07-19] MEDS: VITAMIN D3 (cholecalciferol) 25 MCG PO (09:30)
[2023-07-19] MEDS: THERAGRAN 1 TABLET PO (09:30)
[2023-07-19] MEDS: ALDACTONE 25 MG PO (09:30)
[2023-07-19 09:32] VITALS: BP 118/65
--- NOTE | 2023-07-19 09:32 | PTCARENOTE ---
Pt found to be 100% on 4L. Recommended to pt that we attempt to wean O2 down to 3L but she refused stating she always wears 4-5L at home.
--- NOTE | 2023-07-19 12:15 | W.DCSUMMARY ---
Addendum entered and electronically signed by Ryley Dawson MD 07/19/23 15:48:
Keflex removed from discharge med list as pt has completed antibiotic therapy for cellulitis prior to admission.
Original Note:
Discharge Summary
Discharge Data
Date of Admission: 07/16/23
Date of Discharge: 07/19/23
-
Pending Results: No
Hospital Course
Primary diagnoses:
Acute chronic obstructive pulmonary disease exacerbation exacerbated by anxiety and paradoxical vocal cord dysfunction
Chronic hypoxemic respiratory failure
Secondary diagnoses:
RLE erythema likely due to lymphedema/edema swelling
Persistent ongoing headaches secondary to migraine
Anxiety
Rheumatoid arthritis
Anemia of chronic disease
Prediabetes
Osteoporosis
Herpes prophylaxis
Former smoker
Consultants:
Pulmonary
Imaging:
CXR 07/16/23: Possible trace bilateral pleural effusions. No vascular congestion or pneumonia.
CXR 07/19/23: Chronic obstructive pulmonary disease. Minimal bilateral pleural effusions.
RLE U/S: No evidence of deep venous thrombosis.
72-year-old female presented with a chief complaint of shortness of breath as outlined in the H&P done on admission. Hospital course by problem list:
Acute chronic obstructive pulmonary disease exacerbation exacerbated by anxiety and paradoxical vocal cord dysfunction: The patient had chronic hypoxemic respiratory failure on 5L NC O2 at home while hospitalized she was on 4-6L NC O2, frequently
saturating 100%. Despite counseling on a more appropriate pulse ox of around 91 to 92% with chronic COPD with a blunted CO2 response, the patient insisted on maintaining high oxygen saturations. Imaging above. The patient's chronic of
azithromycin and theophylline were continued. She was on IV Decadron and was transitioned to an oral prednisone taper on discharge. Much of the patient's wheezing while hospitalized was upper airway in origin. It is likely that a large degree of
the patient's symptoms were due to anxiety as well as likely paradoxical vocal cord dysfunction.
Discharge Plan
-
Patient Disposition: Home (Routine Discharge)
Discharge Diagnosis/Procedures: Acute chronic obstructive pulmonary disease exacerbation exacerbated by anxiety and paradoxical vocal cord dysfunction
Condition: Good
Diet: Diabetic, Carb Controlled
Additional Diets: You are prediabetic and therefore should be on a diabetic diet
Activity: As tolerated
Driving Restrictions: As prior to admission
Activity Restrictions/Additional Instructions:
Wound Care Instructions LLE- Keep scabbed area covered with silicone border foam. Change Q 3days and PRN if loose or soiled. Continue to follow up at [facility]
Bilateral Compression with LETY wraps, re-apply daily
Keep skin on legs moisturized
Follow up at [facility] as planned.
Follow up at wound care center call for an appointment.
Referrals:
Odalis Maldonado, DO [Family Provider] - in less than 1 week
Prescriptions:
New
ipratropium-albuterol 0.5 mg-3 mg(2.5 mg base)/3 mL Solution For Nebulization
3 ml inhalation R QID 30 Days Qty: 180 0RF
ipratropium-albuterol 0.5 mg-3 mg(2.5 mg base)/3 mL Solution For Nebulization
3 ml inhalation R Q4HPRN PRN (Reason: shortness of breath/wheezing) Qty: 0 0RF
prednisone 10 mg tablet
10 mg PO DIRECTED Qty: 45 0RF
Rx Instructions:
Taper: 50mg daily x 3 days, 40mg daily x 3 days, 30mg daily x 3 days, 20mg daily x 3 days, 10mg daily x 3 days
Continued
ipratropium-albuterol 0.5 mg-3 mg(2.5 mg base)/3 mL Solution For Nebulization
3 ml INHALATION R QIDPRN PRN (Reason: if did not use inhalers)
lidocaine 4 % Adhesive Patch,Medicated
3 patch TOPICAL DAILYPRN PRN (Reason: r arm and lumber spine )
alendronate 70 mg Tablet
70 mg PO MARTELL
leflunomide 10 mg Tablet
20 mg PO DAILY
valacyclovir 500 mg Tablet
500 mg PO DAILY
wsnoakilwf-dgqaqpmtmklqy-ksnj 50-325-40 mg Tablet
1 tab PO Q4HPRN PRN (Reason: migraine)
budesonide 0.5 mg/2 mL Suspension For Nebulization
0.5 mg inhalation R BIDPRN PRN (Reason: sob)
mupirocin 2 % Ointment
1 applic TOPICAL BID PRN (Reason: b/l feet)
Eugene-24 200 mg Capsule,Extended Release 24hr
200 mg PO DAILY
albuterol sulfate [ProAir HFA] 90 mcg/actuation Hfa Aerosol Inhaler
2 puff INHALATION R Q4HPRN PRN (Reason: sob)
arformoterol [Brovana] 15 mcg/2 mL Solution For Nebulization
2 ml INHALATION R BIDPRN PRN (Reason: sob)
Actemra 400 mg/20 mL (20 mg/mL) Solution
400 mg IV Q4W
Spiriva Respimat 2.5 mcg/actuation Mist
2 puff INHALATION R HS
Combivent Respimat 20-100 mcg/actuation Mist
1 puff INHALATION R QID
Breztri Aerosphere 160-9-4.8 mcg/actuation Hfa Aerosol Inhaler
2 inh INHALATION R BID
azithromycin 250 mg tablet
250 mg PO MOWEFR
gabapentin 100 mg capsule
100 mg PO QIDPRN PRN (Reason: nerve pains)
cyclosporine [Restasis] 0.05 % dropperette
1 drp BOTH EYES BID
lorazepam 0.5 mg tablet
0.5 mg PO BID
cephalexin 500 mg Capsule
500 mg PO QID Qty: 20 0RF
Cipro HC 0.2-1 % drops,suspension
3 drp otic (ear) BID Qty: 10 0RF
torsemide 20 mg Tablet
20 mg PO DAILY
therapeutic multivitamin Tablet
1 tab PO DAILY
spironolactone 25 mg Tablet
25 mg PO DAILY
ascorbic acid (vitamin C) [Vitamin C] 500 mg Tablet
500 mg PO DAILY
cholecalciferol (vitamin D3) [Vitamin D3] 25 mcg (1,000 unit) Tablet
25 mcg PO DAILY
prednisone 5 mg Tablet
5 mg PO BID Qty: 0 0RF
Rx Instructions:
restart this dose after steroid taper completes
Discharge Orders:
Discharge Patient (As Directed); Ordered 07/19/23
Ordered By: Rylye Dawson
[2023-07-19] MEDS: TORADOL 15 MG IV (15:30)
--- NOTE | 2023-07-19 16:23 | CM ---
CM following re: d/c planning
Chart reviewed
Pt medically stable for d/c
IMM was reviewed with patient at bedside and copy provided
CM offered VN to patient and she adamantly declined
Patient's spouse at bedside to transport patient home at time of d/c
No additional d/c needs to note
PLAN; d/c home no needs
--- NOTE | 2023-07-19 16:30 | CM ---
CM following re: d/c planning
Chart reviewed
CM met with the patient at bedside; IA completed
Pt and her spouse reside in a 2nd floor apartment with elevator access
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
Pt has no past hx of VN/SNF, however does have a r/w, w/c, & O2 provided by [employer]
Pt has prescription coverage and rx's are filled at [facility]
Pt PCP-Odalis Maldonado
Pt has been cleared medically for d/c and has no needs
CM offered VN and patient declined
IMM reviewed and copy provided
PLAN; d/c home no needs
--- NOTE | 2023-07-19 17:42 | PTCARENOTE ---
Pt with many complaints throughout the day. She would not allow PCT to provide her care due to her sensitivity to fragrance. Pt also upset about being in semiprivate room and asking for roommate to be required to wear a mask. Finally pt angry when
discharge order was placed. She requested to see results of CXR and all lab work. Asking for iron studies to be done but MD states not necessary or appropriate after discharge order has been placed. Pt aware of her option to appeal discharge if she
wishes. After much discussion with RN, case management and Dr. Garcia pt reluctantly agreeable to leave. Pt's spouse at bedside and on board with plan to discharge. IV discontinued. Discharge paperwork printed and reviewed with patient who verbalized
understanding. Pt transported off the floor via wheelchair with all belongings from the room.
== END 2023-07-19 16:47 | disposition home or self-care (01) | DRG 191 ==
LOC: 4 EAST ACU 17:13
PROVIDERS: Physician Assistant; ADMITTING PHYSICIAN Hospitalist; ATTENDING PHYSICIAN Internal Medicine; CONSULT PHYSICIAN Internal Medicine Critical Care Medicine; EMERGENCY PHYSICIAN Emergency Medicine; FAMILY PHYSICIAN Family Medicine
DX: J44.1 Chronic obstructive pulmonary disease with (acute) exacerbation (principal); J96.11 Chronic respiratory failure with hypoxia; I89.0 Lymphedema, not elsewhere classified; G43.909 Migraine, unspecified, not intractable, without status migrainosus; M06.9 Rheumatoid arthritis, unspecified; F41.9 Anxiety disorder, unspecified; D63.8 Anemia in other chronic diseases classified elsewhere; M81.0 Age-related osteoporosis without current pathological fracture; I10 Essential (primary) hypertension; Z87.891 Personal history of nicotine dependence
CPT/HCPCS: 71045; 71046; 80048; 80053; 85025; 87811; 93005; 93971; 94640; 96374; 99285

== ENCOUNTER 2023-09-09 09:15 | Outpatient (RCR) | payer MEDICARE, SELFPAY | END 2023-09-09 23:59 | disposition home or self-care (01) | LOC: RPT 09:15 | PROVIDERS: ATTENDING PHYSICIAN Family Medicine | DX: I89.0 Lymphedema, not elsewhere classified (principal); R26.81 Unsteadiness on feet; Z73.6 Limitation of activities due to disability | CPT/HCPCS: 97163; 97535; 97760 ==

== ENCOUNTER 2024-11-13 15:20 | Observation (INO) | payer MEDICARE, SELFPAY ==
[2024-11-13] VITALS (10 sets, daily range): BP systolic 99–126; BP diastolic 49–75; BMI 20.5; BMI 20.1
[2024-11-13 11:50] LABS: Hematocrit 32.9 % (37.0-47.0); Hemoglobin 9.5 g/dL (12.0-16.0); Mean Corp Hgb Conc. 28.9 g/dL (33.0-37.0); Mean Corpuscular Volume 84.8 fL (81.0-99.0); Platelet Count 375 10^3/uL (130-400); Red Cell Dist. Width 14.8 % (11.5-14.5)
[2024-11-13 11:51] LABS: Nucleated Red Blood Cells % 0 %
[2024-11-13 12:02] LABS: ALT (SGPT) 14 U/L (0-35); AST (SGOT) 22 U/L (14-36); Albumin 3.4 g/dl (3.5-5.0); Alkaline Phosphatase 99 U/L (38-126); Blood Urea Nitrogen 16 mg/dl (7-17); Calcium 9.4 mg/dl (8.4-10.2); Chloride 102 mmol/L (98-107); Estimated Creatinine Clearance 55 ml/min; Glucose 101 mg/dl (70-99); Potassium 4.6 mmol/L (3.5-5.1); Sodium 143 mmol/L (135-145); Total Protein 5.6 g/dl (6.3-8.2); eGFR > 60.00
[2024-11-13 12:12] LABS: Carbon Dioxide 36 mmol/L (22-30)
[2024-11-13 12:14] LABS: Troponin I 0.014 ng/ml
[2024-11-13 12:19] LABS: Normal RBC Morphology No
[2024-11-13 12:20] LABS: Hypochromasia 2+
--- NOTE | 2024-11-13 13:19 | ED.GENMED ---
History of Present Illness
General
Chief Complaint: Breathing Problem
Source: patient
Exam Limitations: none
Time Seen by Provider: 11/13/24 12:23
Nursing documentation reviewed up to this point in time: agreed with
History of Present Illness
History of Present Illness:
The patient is a 73-year-old female the past medical history of oxygen dependent COPD reports increased work of breathing and decreased oxygen level, especially while exerting herself. Patient denies chest pain. She denies increased mucus
production and cough. She reports she has noticed that her pulse ox is in the 70s on her normal 2 to 3 L of oxygen which is unusual. She denies a history of PE and DVT. She denies leg pain and leg swelling. She reports she has been feeling more
short of breath over the last week but particularly worse over the last few days. 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
Past History
Past History
ED Past Medical History: COPD (emphysema) and Other (anemia, RA, Migraines, )
ED Past Surgical History: , Gynecological (Hysterectomy, Fibroid removed, ), Orthopedic (Right wrist surgery, Left tibial fracture) and Other (Dental surgery cataracts, )
Social History
Tobacco: Former smoker
Alcohol: None
Drug: None
Personal:
Living: with family
Employment: Other
Family History
Family History: Other
Review of Systems
Review of Systems
Allergies reviewed?: Yes
All Other Systems: ROS reviewed and negative except as documented in HPI and ROS
Constitutional: Reports no symptoms
EENT: Reports no symptoms
Respiratory: Reports trouble breathing
Cardiac: Reports no symptoms
ABD/GI: Reports no symptoms
: Reports no symptoms
Musculoskeletal: Reports no symptoms
Skin: Reports no symptoms
Neurological: Reports no symptoms
Endocrine: Reports no symptoms
Hematologic/Lymphatic: Reports no symptoms
Psychiatric: Reports no symptoms
Phy Exam
Physical Exam
Physical Exam:
Physical Exam
General: Patient appears mildly tachypneic at rest.
Neck: supple. no meningeal signs. normal psoterior pharynx
Heart: Tachycardic
Lungs: Tachypneic. Mild diffuse expiratory wheezing
Abdomen: normal bowel sounds. not tender. no CVAT
Neuro: alert and oriented. no focal neurological deficits
Skin: no rash
Psychiatric: well kept. interactive and cooperative
Extremities: no edema. no calf tenderness. negative homans. good distal pulses
Scores
Heart Failure Risk
Heart Failure Risk Score: Not Applicable
Course
Orders/Labs/Results
Orders:
Orders
11/13/24 11:21
EKG [Electrocardiogram (*1)] Urgent
Reason for Study: Shortness of Breath
11/13/24 11:22
EKG- Treatment ONCE
11/13/24 11:30
Complete Blood Count/With Diff Urgent
Comprehensive Metabolic Panel Urgent
NT-proBNP Urgent
Comment: ADD ON
Troponin I Urgent
11/13/24 11:33
Chest [CR Chest - 2 Views ] Urgent
Comment:
Reason For Exam: sob
11/13/24 13:11
Dexamethasone Sod Phosphate [Decadron] 10 mg IV NOW STA
11/13/24 13:12
Albuterol Sulfate [Ventolin Nebules] 15 mg INH R NOW STA
11/13/24 13:16
Add On- LAB Urgent
Tests Added?: pro-BNP
11/13/24 14:04
Echo 2D MMode Color/Doppler Routine
Reason for Study: SOB
PULMONARY CONSULT Routine
Consulting Provider: Ki Guevara
Was physician already notified: Yes
Reason for consult: SOB, underlying COPD
11/13/24 14:07
Ipratropium Nebs [Atrovent Nebules] 0.5 mg .ROUTE .STK-MED ONE
11/13/24 14:11
Ipratropium Nebs [Atrovent Nebules] 0.5 mg INH R NOW STA
Abnormal Lab Results
11/13/24
11:30
RBC 3.88 L 10^6/uL
(4.20-5.40)
Hgb 9.5 L g/dL
(12.0-16.0)
Hct 32.9 L %
(37.0-47.0)
MCH 24.5 L pg
(27.0-31.0)
MCHC 28.9 L g/dL
(33.0-37.0)
RDW 14.8 H %
(11.5-14.5)
Absolute Lymphs (auto) 0.7 L 10^3/uL
(1.2-3.4)
Absolute Monos (auto) 0.9 H 10^3/uL
(0.1-0.6)
Lymphocytes % 11.7 L %
(20.5-51.1)
Monocytes % 15.6 H %
(1.7-9.3)
Carbon Dioxide 36 H mmol/L
(22-30)
Creatinine 0.5 L mg/dL
(0.6-1.0)
Glucose 101 H mg/dl
(70-99)
Total Protein 5.6 L g/dl
(6.3-8.2)
Albumin 3.4 L g/dl
(3.5-5.0)
11/13/24 11:30
11/13/24 11:30
Vital Signs
Initial and Last Documented VS:
Initial Vital Signs
Temp Pulse Resp BP Pulse Ox
98.5 F 98 24 126/71 98
11/13/24 11:27 11/13/24 11:27 11/13/24 11:27 11/13/24 11:27 11/13/24 11:27
Last Documented Vital Signs
Temp Pulse Resp BP Pulse Ox
98.5 F 96 16 115/62 98
11/13/24 11:27 11/13/24 14:15 11/13/24 14:15 11/13/24 14:00 11/13/24 14:16
MDM/Problems Addressed
Differential Diagnosis Includes:
Acute flare of COPD, acute CHF, pneumonia
MDM/Problems Addressed:
Patient reports acute on chronic shortness of breath
Chronic conditions affecting care: COPD
Acute Exacerbation and/or Progression of Chronic Illness: COPD
*Radiology
Radiology exam reviewed: preliminary read by ED provider (Chest x-ray reviewed by me. No acute disease) and radiology read reviewed
*Pulse Oximetry
SaO2: 95
Nasal Cannula flow liters per minute: 4
Oxygen Mode of Delivery: Room air
Patient hypoxic: no
Comment: 95% on 4 L
*EKG
Interpreted by ED Provider?: Yes
Interpretation: abnormal
Comparison EKG: no changes
Rate: tachycardiac
Rhythm: sinus and PVC's
[place]: normal axis
Interval: normal interval
QRS Pattern: normal QRS
Ischemia: no ischemia
*[employer] Interpretation
Rate: tachycardiac
Interpretation: abnormal
Rhythm: sinus
*Critical Care Note
Total Time (30-74mins, 75-104mins- exclusive of procedures): 32 minutes
comment:
32 minutes critical care going to the patient including frequent reassessments of her respiratory effort, reviewing her prior admission for COPD, reviewing her blood work, and counseling the patient.
Data Reviewed
Review of Other/Old Records Reveals: Discharge Summary (Discharge summary reviewed from 07/2023 when patient was admitted for acute on chronic COPD exacerbation)
Source: patient
ED Attending Note
-
Portions of this chart may have been created with voice recognition software.� Occasional wrong word or��sound alike� substitutions may have occurred due to the inherent limitations of voice recognition software.
Discharge Plan
Departure
Patient Disposition: Admit
Date of Disposition: 11/13/24
Time of Disposition: 13:11
Admit to: Med/Surg
Presentation/result/management discussed w/ accepting MD/DO: Hospitalist
Patient with high blood pressure during this ER visit?: Yes
Discharge Problem:
Acute exacerbation of chronic obstructive pulmonary disease, Acute respiratory distress
Prescriptions:
No Action
ipratropium-albuterol 0.5 mg-3 mg(2.5 mg base)/3 mL Solution For Nebulization
3 ml INHALATION R QIDPRN PRN (Reason: if did not use inhalers)
lidocaine 4 % Adhesive Patch,Medicated
3 patch TOPICAL DAILYPRN PRN (Reason: r arm and lumber spine )
alendronate 70 mg Tablet
70 mg PO MARTELL
leflunomide 10 mg Tablet
20 mg PO DAILY
valacyclovir 500 mg Tablet
500 mg PO DAILY
yxmryhtwna-prpusqxwzpqde-ruiz 50-325-40 mg Tablet
1 tab PO Q4HPRN PRN (Reason: migraine)
budesonide 0.5 mg/2 mL Suspension For Nebulization
0.5 mg inhalation R BIDPRN PRN (Reason: sob)
mupirocin 2 % Ointment
1 applic TOPICAL BID PRN (Reason: b/l feet)
Eugene-24 200 mg Capsule,Extended Release 24hr
200 mg PO DAILY
albuterol sulfate [ProAir HFA] 90 mcg/actuation Hfa Aerosol Inhaler
2 puff INHALATION R Q4HPRN PRN (Reason: sob)
arformoterol [Brovana] 15 mcg/2 mL Solution For Nebulization
2 ml INHALATION R BIDPRN PRN (Reason: sob)
Actemra 400 mg/20 mL (20 mg/mL) Solution
400 mg IV Q4W
Spiriva Respimat 2.5 mcg/actuation Mist
2 puff INHALATION R HS
Combivent Respimat 20-100 mcg/actuation Mist
1 puff INHALATION R QID
Christie Aerosphere 160-9-4.8 mcg/actuation Hfa Aerosol Inhaler
2 inh INHALATION R BID
azithromycin 250 mg tablet
250 mg PO MOWEFR
gabapentin 100 mg capsule
100 mg PO QIDPRN PRN (Reason: nerve pains)
cyclosporine [Restasis] 0.05 % dropperette
1 drp BOTH EYES BID
lorazepam 0.5 mg tablet
0.5 mg PO BID
Cipro HC 0.2-1 % drops,suspension
3 drp otic (ear) BID Qty: 10 0RF
torsemide 20 mg Tablet
20 mg PO DAILY
therapeutic multivitamin Tablet
1 tab PO DAILY
spironolactone 25 mg Tablet
25 mg PO DAILY
ascorbic acid (vitamin C) [Vitamin C] 500 mg Tablet
500 mg PO DAILY
cholecalciferol (vitamin D3) [Vitamin D3] 25 mcg (1,000 unit) Tablet
25 mcg PO DAILY
ipratropium-albuterol 0.5 mg-3 mg(2.5 mg base)/3 mL Solution For Nebulization
3 ml inhalation R QID 30 Days Qty: 180 0RF
ipratropium-albuterol 0.5 mg-3 mg(2.5 mg base)/3 mL Solution For Nebulization
3 ml inhalation R Q4HPRN PRN (Reason: shortness of breath/wheezing) Qty: 0 0RF
prednisone 10 mg tablet
10 mg PO DIRECTED Qty: 45 0RF
Rx Instructions:
Taper: 50mg daily x 3 days, 40mg daily x 3 days, 30mg daily x 3 days, 20mg daily x 3 days, 10mg daily x 3 days
prednisone 5 mg Tablet
5 mg PO BID Qty: 0 0RF
Rx Instructions:
restart this dose after steroid taper completes
Referrals:
Odalis Maldonado DO [Family Provider, Family Practice]
Interventions
Interventions:
*Risk Screen - Suicide Last Done: 11/13/24 11:33
*General Assessment Last Done: 11/13/24 11:33
*Neglect/Abuse Screening Last Done: 11/13/24 11:33
*ED- Fall Risk Assessment Last Done: 11/13/24 14:16
*ED COVID-19 Vaccine History Last Done: 11/13/24 14:16
ED- Cardiac Assessment Last Done: 11/13/24 14:16
ED- Pulmonary Assessment Last Done: 11/13/24 14:16
Discharge Date and Time
Print Language: BURMESE
--- NOTE | 2024-11-13 13:37 | HPS.HSE ---
Family Physician
-
Family Physician: Odalis Maldonado
Chief Complaint
-
SOB
History of Present Illness
73 y/o F with PMHx:
Chronic hypoxemic respiratory failure due to COPD (exacerbated by anxiety and paradoxical vocal cord dysfunction in the past)
Persistent ongoing headaches secondary to migraine
Anxiety
Rheumatoid arthritis
Anemia of chronic disease
Prediabetes
Osteoporosis
Former smoker
who p/w CC SOB. Patient reports that over the last week she has had worsening shortness of breath. She sleeps at about 45 degrees and denies any paroxysmal nocturnal dyspnea or orthopnea (at 45 degrees). She denies any fever or worsening of
cough. She denies any other acute symptoms. She states that she has had her pulse ox drop into the 70s. She also notes intermittent tachycardia. No other acute complaints.
Medical History
Past Medical History
Past Medical History: Reports Other (as per HPI)
Past Surgical History: Reports Other (N/A)
Social History
Tobacco: Former Smoker
Alcohol: None
Drug: None
Family History
Family History: Not pertinent
Allergies / Home Medications
Allergies reflects when Allergies were last updated in [facility].
Home Medications with original date entered in [facility]
Allergy/Medication List:
Allergies
Allergy/AdvReac Type Severity Reaction Status Date / Time
mannitol (From Reclast) Allergy Swelling Verified 11/13/24 11:22
water for injection,sterile Allergy Swelling Verified 11/13/24 11:22
(From Reclast)
zoledronic acid (From Allergy Swelling Verified 11/13/24 11:22
Reclast)
Home Medications
alendronate 70 mg tablet 70 mg PO MARTELL osteoporosis 06/27/23
arformoterol 15 mcg/2 mL solution for nebulization (Brovana) 2 ml inhalation R BID 06/27/23
azithromycin 250 mg tablet 250 mg PO MOWEFR copd 06/27/23
budesonide 0.5 mg/2 mL suspension for nebulization 0.5 mg inhalation R BID 06/27/23
cyclosporine 0.05 % eye drops in a dropperette (Restasis) 1 drp BOTH EYES BID dry eyes 06/27/23
ipratropium 0.5 mg-albuterol 3 mg (2.5 mg base)/3 mL nebulization soln 3 ml inhalation R QID 06/27/23
ipratropium 20 mcg-albuterol 100 mcg/actuation mist for inhalation (Combivent Respimat) 1 puff inhalation R QIDPRN PRN sob 06/27/23
leflunomide 10 mg tablet 20 mg PO HS rheumatoid arthritis 06/27/23
lidocaine 4 % topical patch 1 patch topical DAILYPRN PRN L knee & L hip 06/27/23
theophylline 200 mg capsule,extended release 24 hr (Eugene-24) 200 mg PO HS copd 06/27/23
tiotropium bromide 2.5 mcg/actuation mist for inhalation (Spiriva Respimat) 2 puff inhalation R HS copd 06/27/23
tocilizumab 400 mg/20 mL (20 mg/mL) intravenous solution (Actemra) 400 mg IV Q4W rheumatoid arthritis 06/27/23
valacyclovir 500 mg tablet 500 mg PO HS viral infection 06/27/23
cholecalciferol (vitamin D3) 25 mcg (1,000 unit) tablet (Vitamin D3) 25 mcg PO MOTUWETHFRSA Supplement 07/16/23
spironolactone 25 mg tablet 25 mg PO DAILYPRN PRN blood pressure 07/16/23
therapeutic multivitamin 1 tab PO MOWEFR Supplement 07/16/23
torsemide 20 mg tablet 20 mg PO DAILYPRN PRN edema 07/16/23
Chelated Magnesium 200 mg PO MOTUWETHFRSA 11/13/24
albuterol sulfate 90 mcg/actuation aerosol inhaler 2 puff inhalation R Q4HPRN PRN sob 11/13/24
ascorbic acid (vitamin C) 1,000 mg tablet (Vitamin C) 1,000 mg PO MOTUWETHFRSA 11/13/24
cyanocobalamin (vitamin B-12) 50 mcg tablet 50 mcg PO MOWEFR 11/13/24
ensifentrine 3 mg/2.5 mL suspension for nebulization (Ohtuvayre) 2.5 ml inhalation R BID 11/13/24
methylcellulose (laxative) 500 mg tablet (Citrucel) 1,000 mg PO DAILY 11/13/24
potassium chloride 10 mEq tablet,extended release 10 meq PO DAILYPRN PRN supplement 11/13/24
prednisone 5 mg tablet 5 mg PO HS rheumatoid arthritis 11/13/24
sulfasalazine 500 mg tablet 500 mg PO BID 11/13/24
zinc 30 mg PO MOWEFR 11/13/24
Review of Systems
-
History Source: Patient
A 12 point ROS was completed and negative except as noted: Yes
Physical Exam
Vital Signs
Vital Signs
Temp Pulse Resp BP Pulse Ox
98.5 F 98 24 126/71 95
11/13/24 11:27 11/13/24 11:27 11/13/24 11:27 11/13/24 11:27 11/13/24 13:19
Physical Exam
General: Other (.)
Laboratory Results
-
11/13/24 11:30
11/13/24 11:30
Laboratory Results
Total Bilirubin 0.6 mg/dl (0.2-1.3) 11/13/24 11:30
AST 22 U/L (14-36) 11/13/24 11:30
ALT 14 U/L (0-35) 11/13/24 11:30
Alkaline Phosphatase 99 U/L (38-126) 11/13/24 11:30
Troponin I 0.014 ng/ml 11/13/24 11:30
Impression/Plan
-
Gen: NAD, AAOx3, appears chronically ill.
Eyes: EOMI, PERRLA, no scleral icterus.
Neck: supple.
CV: RRR, +S1/S2, no m/r/g.
Resp: Moderately decreased air exchange, mild end expiratory wheezes
Abd: +BS, soft, NT, ND
Skin: No rashes.
Neuro: CN 2-12 intact, non-focal.
Psych: Normal mood and affect.
CXR: No acute cardiopulmonary abnormality. Findings suggestive of COPD, similar to prior.
SOB:
-underlying Chronic hypoxemic respiratory failure due to COPD on 5L NC O2 at baseline
-ED tx: Decadron 10mg IV, albuterol 15mg ordered (but not given at the time of my eval)
-has a history of anxiety and paradoxical vocal cord dysfunction contributing to her shortness of breath
-was 97% on her baseline 5L NC. I explained to the pt and her family that, due to blunted CO2 response in COPD, NC O2 should be titrated to 90-92% (not to drop below 88%)
-I think acute COPD exacerbation is unlikely at this time. Will place patient on prednisone 40mg daily x 5 days pending pulm c/s.
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
Other problems:
Persistent ongoing headaches secondary to migraine
Anxiety: cont Ativan
Rheumatoid arthritis: On Actemra outpt
Anemia of chronic disease, trend Hb
Prediabetes
Osteoporosis
Former smoker
FULL/Lovenox/OBS/MS
[2024-11-13] MEDS: DECADRON 10 MG IV (14:09)
[2024-11-13] MEDS: VENTOLIN NEBULES 15 MG INH (14:10)
[2024-11-13] MEDS: ATROVENT NEBULES 0.5 MG INH (14:11)
--- NOTE | 2024-11-13 14:50 | PHANOTE ---
11/13/2024, pt. gets her meds. filled through [facility] and [facility] mail order; was not able to confirm pt.'s Calvin Nesbitt, and Carmen with another source.
--- NOTE | 2024-11-13 15:03 | CON.PUL ---
Consultation
Consultation Request
Date/Time Consultation Requested: 11/13/2024-3 PM
Date/Time Consultation Performed: 11/13/2024-3:15 PM
Requesting Provider: hospitalist
Performing Provider: Dr. Guevara
Reason for Consultation: shortness of breath
Medical History
-
Chief Complaint: shortness of breath
History of Present Illness:
73-year-old former smoking female with advanced COPD followed by Dr. Shi at [place], anxiety, rheumatoid arthritis, prediabetes, osteoporosis and migraines presented with 2-day history of progressive shortness of breath and chest tightness as
well as yellow sputum production-pulmonary consulted for COPD exacerbation 11/13/2024. The patient states that her shortness of breath is progressively gotten worse along with some chest tightness and yellow sputum production. She states she never
has fevers with respiratory tract infections. She denies any fevers, chills, night sweats, hemoptysis, abdominal pain, nausea, and her leg swelling has increased from its baseline. She does not have any focal weakness.
Past Medical History
Past Medical History: None (COPD-severe on chronic O2. Migraines. Chronic lower extremity lymphedema. Anxiety. Osteoporosis.Rheumatoid Tritus. Anemia. Hypertension. Prediabetes. . Hysterectomy. Right wrist surgery. Left tibial
fracture surgery. Dental surgery. Cataract.)
Social History
Tobacco: Former Smoker ( [id number] quit 2005)
Alcohol: None
Drug: None
Personal:
Living: With Family
Occupational Exposures: no known asbestos exposure
Environmental Exposures: no known tuberculosis exposure
Family History
Family History: Reviewed & Not Pertinent
Allergies / Home Medications
Allergies
Allergy/AdvReac Type Severity Reaction Status Date / Time
mannitol (From Reclast) Allergy Swelling Verified 11/13/24 11:22
water for injection,sterile Allergy Swelling Verified 11/13/24 11:22
(From Reclast)
zoledronic acid (From Allergy Swelling Verified 11/13/24 11:22
Reclast)
Home Medications
�Medication �Instructions �Recorded �Confirmed �Last Taken �Type
alendronate 70 mg tablet 70 mg PO MARTELL osteoporosis 06/27/23 11/13/24 11/06/24 History
arformoterol 15 mcg/2 mL solution 2 ml inhalation R BID 06/27/23 07/16/23 11/13/24 History
for nebulization (Brovana)
azithromycin 250 mg tablet 250 mg PO MOWEFR copd 06/27/23 11/13/24 11/11/24 History
budesonide 0.5 mg/2 mL suspension 0.5 mg inhalation R BID 06/27/23 07/16/23 11/13/24 History
for nebulization
cyclosporine 0.05 % eye drops in a 1 drp BOTH EYES BID dry eyes 06/27/23 11/13/24 11/12/24 History
dropperette (Restasis)
ipratropium 0.5 mg-albuterol 3 mg 3 ml inhalation R QID 06/27/23 07/16/23 11/13/24 History
(2.5 mg base)/3 mL nebulization
soln
ipratropium 20 mcg-albuterol 100 1 puff inhalation R QIDPRN PRN sob 06/27/23 11/13/24 1 Week Ago History
mcg/actuation mist for inhalation ~11/06/24
(Combivent Respimat)
leflunomide 10 mg tablet 20 mg PO HS rheumatoid arthritis 06/27/23 11/13/24 11/12/24 History
lidocaine 4 % topical patch 1 patch topical DAILYPRN PRN L 06/27/23 11/13/24 Unknown History
knee & L hip
theophylline 200 mg 200 mg PO HS copd 06/27/23 11/13/24 11/12/24 History
capsule,extended release 24 hr
(Eugene-24)
tiotropium bromide 2.5 2 puff inhalation R HS copd 06/27/23 11/13/24 11/12/24 History
mcg/actuation mist for inhalation
(Spiriva Respimat)
tocilizumab 400 mg/20 mL (20 400 mg IV Q4W rheumatoid arthritis 06/27/23 11/13/24 Unknown History
mg/mL) intravenous solution
(Actemra)
valacyclovir 500 mg tablet 500 mg PO HS viral infection 06/27/23 11/13/24 11/12/24 History
cholecalciferol (vitamin D3) 25 25 mcg PO MOTUWETHFRSA Supplement 07/16/23 11/13/24 11/12/24 History
mcg (1,000 unit) tablet (Vitamin
D3)
spironolactone 25 mg tablet 25 mg PO DAILYPRN PRN blood 07/16/23 11/13/24 2 Days Ago History
pressure ~11/11/24
therapeutic multivitamin 1 tab PO MOWEFR Supplement 07/16/23 11/13/24 11/11/24 History
torsemide 20 mg tablet 20 mg PO DAILYPRN PRN edema 07/16/23 11/13/24 2 Days Ago History
~11/11/24
Chelated Magnesium 200 mg PO MOTUWETHFRSA 11/13/24 11/13/24 11/12/24 History
albuterol sulfate 90 mcg/actuation 2 puff inhalation R Q4HPRN PRN sob 11/13/24 11/13/24 11/12/24 History
aerosol inhaler
ascorbic acid (vitamin C) 1,000 mg 1,000 mg PO MOTUWETHFRSA 11/13/24 11/13/24 11/12/24 History
tablet (Vitamin C)
cyanocobalamin (vitamin B-12) 50 50 mcg PO MOWEFR 11/13/24 11/13/24 11/11/24 History
mcg tablet
ensifentrine 3 mg/2.5 mL 2.5 ml inhalation R BID 11/13/24 11/13/24 History
suspension for nebulization
(Ohtuvayre)
methylcellulose (laxative) 500 mg 1,000 mg PO DAILY 11/13/24 11/13/24 11/12/24 History
tablet (Citrucel)
potassium chloride 10 mEq 10 meq PO DAILYPRN PRN supplement 11/13/24 11/13/24 2 Days Ago History
tablet,extended release ~11/11/24
prednisone 5 mg tablet 5 mg PO HS rheumatoid arthritis 11/13/24 11/13/24 11/12/24 History
sulfasalazine 500 mg tablet 500 mg PO BID 11/13/24 11/13/24 11/12/24 History
zinc 30 mg PO MOWEFR 11/13/24 11/13/24 11/11/24 History
Review of Systems
-
Unable to Obtain full review of systems at this time due to: Other ( per HPI)
Vitals / Labs / Diagnostic Testing
Vital Signs
Temp Pulse Resp BP Pulse Ox
98.5 F 96 16 115/62 98
11/13/24 11:27 11/13/24 14:15 11/13/24 14:15 11/13/24 14:00 11/13/24 14:16
Lab Data
11/13/24 11:30
11/13/24 11:30
Diagnostic Testing:
Physical Exam
-
Exam:
well-nourished and well-developed in no apparent distress
HEENT-atraumatic, normocephalic
Neck-supple, no JVD, no bruit
Heart-regular rate and rhythm-no murmurs, rubs or gallops
Chest with diminished breath sounds, prolonged expiratory time, forced wheezes and rare basilar crackles
Back-no tenderness
Abdomen-soft, nontender, nondistended, no hepatosplenomegaly
Extremities-no cyanosis, clubbing, left greater than right lower extremity edema 1+
Integument-intact, no rashes, lesions or ecchymosis
Neurology-alert and oriented, nonfocal motor and sensory exam
Assessment
-
73-year-old former smoking female with advanced COPD followed by Dr. Shi at [place], Chronic lower extremity swelling anxiety, rheumatoid arthritis, prediabetes, osteoporosis and migraines presented with 2-day history of progressive shortness of
breath and chest tightness as well as yellow sputum production-pulmonary consulted for COPD exacerbation 11/13/2024.
COPD-suspect Gold stage IV with acute exacerbation-anxiety and vocal cord dysfunction also contributing to symptoms
Chronic hypercapnia suspected
Chronic bilateral lower extremity right greater than left edema/lymphedema
Uvnvif-[id number]-qifelornzn 9.5
Mild hyperglycemia
Conditions present prior to admission:
COPD-severe on chronic O2-followed at [facility]-Dr. Fisher initially and now Dr. Shi at [place], chronic O2, Brovana, budesonide and Combivent as needed, chronic azithromycin, prednisone
Chronic hypercapnia-ABG 08/2021--/ 0.43
Migraines.
Chronic lower extremity lymphedema.
Anxiety.
Rheumatoid arthritis.
Anemia.
Hypertension.
Prediabetes.
. Hysterectomy. Right wrist surgery. Left tibial fracture surgery. Dental surgery. Cataract.
Plan
Patient requires admission for severe COPD exacerbation and respiratory failure
Supplemental oxygen as needed
BiPAP if needed
High flow oxygen if appropriate
Home regiment includes budesonide, DuoNebs, (not taking Breztri), Eugene-24 200 mg, prednisone 5 mg twice daily, azithromycin 250 mg 3 times weekly and Ohtuvayre in addition to oxygen
Duo nebs
Pulmicort nebulizers
Mucolytic's
Prednisone initiated-escalated to IV steroids if inadequate response
Incentive spirometry
Acapella
Consider vest if difficulties mobilizing secretions
Consider chest physiotherapy if difficulties mobilizing secretions
Check cultures
Patient on chronic azithromycin
No obvious signs of lower respiratory tract bacterial infection-does complain of yellow sputum production
Low threshold for short course of antibiotics
Consider procalcitonin and if elevated then initiate antibiotics
Monitor leukocytosis
Monitor blood sugars
Insulin supplementation as needed
Wound care nursing for bilateral lymphedema and recent lower extremity cellulitis
Anxiolytics as needed
DVT prophylaxis-on heparin
Early nutrition
Early mobilization
Reviewed with primary team and emergency room nursing as well as and daughter at the bedside
Outpatient pulmonary [id number]. Criner at [place]-scheduled to start pulmonary rehab-asked her to inquire about biologic such as Dupixent and Daliresp
Diagnostic data:
Chest x-ray 05/31/2023-COPD, NAD
Chest x-ray 06/26/2023-COPD, NAD
Chest x-ray 07/16/2023-trace bilateral pleural effusions, COPD changes
Chest x-ray 07/19/2023-COPD changes, minimal bilateral pleural effusions
Chest x-ray 11/13/2024-NAD, COPD changes
Lower extremity ultrasound 07/16/2023-no evidence for DVT
Data Reviewed
-
EKG: Report reviewed by me
Radiology: Image personally visualized and interpreted and Report reviewed by me
Ultrasound: Report reviewed by me
Medical Tests (Nuc Med, Echo etc): Report reviewed by me
Labs: Labs reviewed by me
Old Records: Reviewed
Total Time Spent with Patient (in minutes): 85
[2024-11-13] MEDS: PULMICORT 0.5 MG INH (20:00)
[2024-11-13] MEDS: VENTOLIN NEBULES 2.5 MG INH (20:00)
[2024-11-13] MEDS: SPIRIVA RESPIMAT 2.5 MCG 2 PUFF INH (20:00)
[2024-11-13] MEDS: LOVENOX 30 MG SC (20:30)
[2024-11-13] MEDS: AZULFIDINE 500 MG PO (20:30)
[2024-11-13] MEDS: RESTASIS 0.05% OPHTHALMIC EMULSION 1 DROPS BOTH EYES (20:30)
[2024-11-13] MEDS: VALTREX 500 MG PO (21:53)
[2024-11-14 06:57] LABS: Hematocrit 30.8 % (37.0-47.0); Hemoglobin 9.1 g/dL (12.0-16.0); Mean Corp Hgb Conc. 29.5 g/dL (33.0-37.0); Mean Corpuscular Volume 82.4 fL (81.0-99.0); Nucleated Red Blood Cells % 0 %; Platelet Count 377 10^3/uL (130-400); Red Cell Dist. Width 14.7 % (11.5-14.5)
[2024-11-14 07:03] VITALS: BP 98/45
[2024-11-14 07:17] LABS: Blood Urea Nitrogen 21 mg/dl (7-17); Calcium 9.6 mg/dl (8.4-10.2); Carbon Dioxide 38 mmol/L (22-30); Chloride 104 mmol/L (98-107); Estimated Creatinine Clearance 55 ml/min; Glucose 132 mg/dl (70-99); Potassium 4.8 mmol/L (3.5-5.1); Sodium 143 mmol/L (135-145); eGFR > 60.00
[2024-11-14] MEDS: VENTOLIN NEBULES 2.5 MG INH ×3 (07:18→15:10)
[2024-11-14] MEDS: PULMICORT 0.5 MG INH (07:18)
[2024-11-14] MEDS: RESTASIS 0.05% OPHTHALMIC EMULSION 1 DROPS BOTH EYES (08:02)
[2024-11-14] MEDS: AZULFIDINE 500 MG PO (08:02)
[2024-11-14] MEDS: THERAGRAN 1 TABLET PO (08:04)
[2024-11-14] MEDS: VITAMIN D3 (cholecalciferol) 25 MCG PO (08:04)
[2024-11-14] MEDS: ZITHROMAX 250 MG PO (08:04)
[2024-11-14] MEDS: VITAMIN B-12 50 MCG PO (08:04)
[2024-11-14] MEDS: DELTASONE 40 MG PO (08:04)
[2024-11-14] MEDS: VITAMIN C 1000 MG PO (08:04)
[2024-11-14] MEDS: ZINC 50 MG PO (08:07)
[2024-11-14 08:40] VITALS: BP 120/61; PULSE 115; PULSE 124; O2SAT 96
[2024-11-14 09:00] VITALS: BP 120/61; PULSE 101; O2SAT 96
--- NOTE | 2024-11-14 10:48 | W.PN.HOSP.TC ---
Addendum entered and electronically signed by Ryley Dawson MD 11/14/24 13:49:
Total time spent on d/c = 43 min. This included today's physical exam, progress note, review of laboratory and diagnostic data, preparation of discharge documents and prescriptions, and discussions about the pt's hospital course and discharge plan
with the patient and other medical receptionist medical assistant involved in the patient's care.
Original Note:
Today's Communication/Plan
-
d/c after echo
Assessment / Plan
Assessment / Plan
Gen: Appears slightly anxious but is not in respiratory distress, AAOx3, appears chronically ill.
Eyes: EOMI, PERRLA, no scleral icterus.
Neck: supple.
CV: Remains RRR, +S1/S2, no m/r/g.
Resp: Very minimally decreased air exchange, clear to auscultation bilaterally. Of note there is faint expiratory wheezing coming from the patient's oropharynx.
Abd: +BS, soft, NT, ND
Skin: No rashes.
Neuro: CN 2-12 intact, non-focal.
Psych: Appears slightly anxious
CXR: No acute cardiopulmonary abnormality. Findings suggestive of COPD, similar to prior.
SOB:
-underlying chronic hypoxemic and hypercapnic respiratory failure due to COPD on 5L NC O2 at baseline
-ED tx: Decadron 10mg IV, albuterol 15mg ordered (but not given at the time of my eval)
-has a history of anxiety and paradoxical vocal cord dysfunction contributing to her shortness of breath
-on admission pt was 97% on her baseline 5L NC. I explained to the pt and her family that, due to blunted CO2 response in COPD, NC O2 should be titrated to 90-92% (not to drop below 88%).
-currently documented as 98% on 4L NC O2
-personally I think acute exacerbation of COPD is unlikely at this time. Pulmonary felt differently yesterday.
-will continue Prednisone 40mg daily x 5 days empirically
-At this point appears patient dyspnea on exertion and shortness of breath is more related to paradoxical vocal cord dysfunction and anxiety
-outpt utility accounts director requested echo which is pending
Other problems:
Persistent ongoing headaches secondary to migraine
Anxiety: cont Ativan
Rheumatoid arthritis: On Actemra outpt
Anemia of chronic disease, Hb stable
Prediabetes
Osteoporosis
Former smoker
FULL/Lovenox/OBS/MS
Medically cleared for discharge if okay with pulmonary.
Anticipated Discharge: Today
Subjective/Interval History
-
Date of Service: November 14, 2024
Patient appears anxious. She states she has dyspnea on exertion.
Objective Data
-
Labs:
Laboratory Results
11/14/24
06:10
WBC 4.9
Hgb 9.1 L
Hct 30.8 L
Plt Count 377
Sodium 143
Potassium 4.8
Chloride 104
Carbon Dioxide 38 H
BUN 21 H
Creatinine 0.6
Glucose 132 H
Calcium 9.6
Vital Signs:
Vital Signs
Temp Pulse Resp BP Pulse Ox
98 F 86 18 98/45 98
11/14/24 07:03 11/14/24 07:20 11/14/24 07:20 11/14/24 07:03 11/14/24 08:00
I&O
11/13/24 11/14/24 11/15/24
06:59 06:59 06:59
Intake Total 480 / 480
Balance 480 / 480
--- NOTE | 2024-11-14 11:15 | W.PN.PUL3 ---
Today's Communication / Plan
-
Continue with empiric treatment for COPD exacerbation with prednisone
She feels much better and is currently not wheezing and O2 requirements have actually decreased (currently on 1-2 L/min and is on 3-4 L/min at home) � okay for rapid taper of steroids down to her home dose
No evidence of eosinophilia on blood work however given her chronic prednisone usage, her eos may be falsely low; would advise her to discuss starting a biologic as an outpatient with her supervisor [employer]; reportedly starting pulmonary rehab soon
Unclear if she has vocal cord dysfunction as this would would require outpatient evaluation by either ENT versus pulmonary preferably with stroboscopy to diagnose
Patient is pending an echo
Will check home O2 assessment prior to discharge
I called the daughter, Paul, twice on phone number supplied however it went straight to voicemail both times. Brief message left.
Once patient is discharged then we will sign off at that time. Please call back with any questions or concerns.
Assessment
-
73-year-old former smoking female with advanced COPD followed by Dr. Shi at [place], Chronic lower extremity swelling anxiety, rheumatoid arthritis, prediabetes, osteoporosis and migraines presented with 2-day history of progressive shortness of
breath and chest tightness as well as yellow sputum production-pulmonary consulted for COPD exacerbation 11/13/2024.
COPD-suspect Gold stage IV with acute exacerbation-anxiety and possible vocal cord dysfunction also contributing to symptoms
Chronic hypercapnia (mild)
Chronic bilateral lower extremity right greater than left edema/lymphedema
Anemia
Mild hyperglycemia
Conditions present prior to admission:
COPD-severe on chronic O2-followed at [facility]-Dr. Fisher initially and now Dr. Shi at [place], chronic O2, Brovana, budesonide and Combivent as needed, chronic azithromycin, prednisone
Chronic hypercapnia-ABG 08/2021--48/59/7 0.43
Migraines.
Chronic lower extremity lymphedema.
Anxiety.
Rheumatoid arthritis.
Anemia.
Hypertension.
Prediabetes.
. Hysterectomy. Right wrist surgery. Left tibial fracture surgery. Dental surgery. Cataract.
Plan
Patient required admission for severe COPD exacerbation and respiratory failure
Continue supplemental oxygen, weaning down as tolerated to maintain SpO2 88-95%
Check home O2 assessment prior to discharge
Home regimen includes budesonide, ?Kerry corcoran, (not taking Breztri), Eugene-24 200 mg, prednisone 5 mg twice daily, azithromycin 250 mg 3 times weekly and Ohtuvayre in addition to oxygen
Continue nebulized albuterol QID, Spiriva + budesonide while hospitalized
Continue theophylline as well as Ohtuvayre
Mucolytics
Continue prednisone with taper back to her home dose - she is not wheezing on exam for me, and I noticed she does force the air out when she exhales, and this causes an audible wheeze, but upon auscultation there is no wheezing or stridor appreciated
Incentive spirometry
Acapella
Consider vest if difficulties mobilizing secretions
Consider chest physiotherapy if difficulties mobilizing secretions
It seems that she has a suspected diagnosis of vocal cord dysfunction. This would require outpatient evaluation by ENT versus pulmonary preferably with stroboscopy to diagnose --> advised the pt to discuss this with her supervisor [employer]
Her outpatient supervisor [employer] requested an echo, which will be done today and then she can go home as long as no significant findings seen preliminarily by senior laboratory technician, however official read will be from cardiology, and pt can get results after
discharge; if significant findings are seen, then the pt should be called and notified
No need for antibiotics given no evidence of pneumonia and she is nontoxic-appearing and afebrile without leukocytosis
Patient on chronic azithromycin which should be continued
Low threshold for short course of antibiotics if she spikes a fever
Consider procalcitonin and if elevated then initiate antibiotics
Trend WBC
Monitor blood sugar with goal BG >100 and <180mg/dL
Insulin supplementation as needed
Wound care nursing for bilateral lymphedema and recent lower extremity cellulitis
Anxiolytics as needed
DVT prophylaxis-on LMWH
Early nutrition
Early mobilization
Reviewed with bedside RN and hospitalist, Dr. Eunice tipton
I called the daughter, Paul, twice on phone number supplied however it went straight to voicemail both times. Brief message left.
Patient is being prepared for discharge. She will follow-up with her outpatient supervisor [employer], Dr. Shi at [place]. She is reported to be starting pulmonary rehab soon. Her absolute eosinophils appear to be <300 so unclear if she would benefit
from Dupixent, however with her chronic prednisone usage her eosinophils may be falsely normal. Once patient is discharged then we will sign off at that time. Please call back with any questions or concerns.
Diagnostic data:
Chest x-ray 05/31/2023-COPD, NAD
Chest x-ray 06/26/2023-COPD, NAD
Chest x-ray 07/16/2023-trace bilateral pleural effusions, COPD changes
Chest x-ray 07/19/2023-COPD changes, minimal bilateral pleural effusions
Chest x-ray 11/13/2024-NAD, COPD changes
Lower extremity ultrasound 07/16/2023-no evidence for DVT
Total time spent today was 38 minutes for this encounter. Time includes reviewing laboratory test/imaging results, reviewing pertinent medical records, obtaining and reviewing medical history, performing an appropriate exam, ordering medications,
tests and procedures. Time also includes documentation of this encounter, coordinating patient care and communicating with other healthcare professionals. Total time does not include separately billed tests performed on this date of service.
Subjective Data
-
Date of Service:
Date of Service: November 14, 2024
Chief Complaint: Pulmonary Follow Up
Subjective:
Patient was seen and evaluated today bedside. Resting in chair no acute distress currently on 1.5 L/min nasal cannula, breathing comfortably. Wears 3-4 L/min at home. She currently denies a cough and her breathing is much better compared to when
she was first admitted. Denies CEBALLOS, chest pain, nausea, vomiting, fevers or chills.
Review of Systems
General: Other (Negative unless mentioned above)
Objective Data
Data Reviewed
Vital Signs / I&O / Oxygen:
Vital Signs
Temp Pulse Resp BP Pulse Ox
98 F 86 18 98/45 98
11/14/24 07:03 11/14/24 07:20 11/14/24 07:20 11/14/24 07:03 11/14/24 08:00
Intake and Output
11/13/24 11/14/24 11/15/24
06:59 06:59 06:59
Intake Total 480 / 480
Balance 480 / 480
SaO2 98
Nasal Cannula flow liters per 4
minute
Physical Exam
General: Respiratory Distress (negative), Comfortable, Chills (negative) and Sweats (negative)
HEENT: Normocephalic and Anicteric
Cardiovascular: S1-S2 and Peripheral Edema (negative)
Respiratory: Wheeze (negative), Crackles (negative), Rhonchi (negative), Non-Labored Respirations and Stridor (negative)
GI: Soft, Non Distended, Non Tender and Normal Bowel Sounds
Neurology: AO x 3 and Tremors (negative)
Skin: Warm, Dry, Cyanosis (negative) and Jaundice (negative)
Labs/Micro/Reports
Lab Data
11/14/24 06:10
11/14/24 06:10
--- NOTE | 2024-11-14 13:20 | W.PN.UPDATE ---
Update Note
Progress Note Update
I had an extensive conversation with the patient's daughter over the phone just now. All questions were asked and answered. Of note, the patient's daughter was asking me specifics about alarm signs and symptoms which would require return to the
ER. I did give some guidance but I also stated, in no uncertain terms, that should the patient have any concerning symptoms at any time that she should always come back to the ER immediately. The patient's daughter verbally acknowledged
understanding of this.
--- NOTE | 2024-11-14 13:34 | W.DCSUMMARY ---
Discharge Summary
Discharge Data
Date of Admission: 11/13/24
Date of Discharge: 11/14/24
-
Pending Results: Yes
Additional Pending Results:
Echocardiogram read
Hospital Course
Primary diagnoses:
Shortness of breath due to paradoxical vocal cord dysfunction and anxiety in the setting of underlying COPD without acute exacerbation
Chronic hypoxemic and hypercapnic respiratory failure due to COPD on 5L NC O2 at baseline
Secondary diagnoses:
Persistent ongoing headaches secondary to migraine
Anxiety
Rheumatoid arthritis
Anemia of chronic disease
Prediabetes
Osteoporosis
Former smoker
Consultants:
Pulmonary
Imaging:
CXR: No acute cardiopulmonary abnormality. Findings suggestive of COPD, similar to prior.
Hospital course: 73-year-old female who presented yesterday with a chief complaint of shortness of breath as outlined in the H&P done on admission. The patient had a history of underlying chronic hypoxemic and hypercapnic respiratory failure due to
COPD on 5L NC O2 at baseline. In the ER the patient received Decadron 10mg IV, albuterol 15mg . The patient had a history of anxiety and paradoxical vocal cord dysfunction contributing to her shortness of breath. On admission the patient was 97%
on her baseline 5L NC. I explained to the patient and her family that, due to blunted CO2 response in COPD, NC O2 should be titrated to 90-92% (not to drop below 88%). The patient was placed on prednisone 40 mg daily empirically. She was seen in
consultation by pulmonary on 11/14/24. At that time it was documented that the patient had an acute exacerbation of COPD. Personally I think do not think the patient had an acute exacerbation of COPD, rather she had anxiety and paradoxical vocal cord
dysfunction causing her shortness of breath in the setting of underlying COPD. On the day after admission the patient was documented as having a pulse ox of 98% on 4L NC O2. I did discuss the case with pulmonary, Dr. Clemons, at length, on 11/14/24
and we both felt that there was no evidence of acute COPD exacerbation. To be complete the patient is being discharged to complete a 5-day course of prednisone 40 mg daily. Also, the patient's outpatient audio production manager had requested an
echocardiogram. This is to be completed prior to her discharge today. The patient's outpatient physicians will need to follow the results of this test.
Discharge Plan
-
Patient Disposition: Home (Routine Discharge)
Discharge Diagnosis/Procedures: Shortness of breath due to paradoxical vocal cord dysfunction and anxiety in the setting of underlying COPD without acute exacerbation
Condition: Good
Diet: Regular and Other diet
Additional Diets: as prior to admission
Activity: As tolerated
Driving Restrictions: As prior to admission
Referrals:
Odalis Maldonado DO [Family Provider, [facility]] - in less than 1 week
Prescriptions:
New
prednisone 20 mg tablet
40 mg PO DAILY Qty: 8 0RF
Continued
ipratropium-albuterol 0.5 mg-3 mg(2.5 mg base)/3 mL Solution For Nebulization
3 ml INHALATION R QID
lidocaine 4 % Adhesive Patch,Medicated
1 patch TOPICAL DAILYPRN PRN (Reason: L knee & L hip)
alendronate 70 mg Tablet
70 mg PO MARTELL
leflunomide 10 mg Tablet
20 mg PO HS
valacyclovir 500 mg Tablet
500 mg PO HS
budesonide 0.5 mg/2 mL Suspension For Nebulization
0.5 mg inhalation R BID
Eugene-24 200 mg Capsule,Extended Release 24hr
200 mg PO HS
arformoterol [Brovana] 15 mcg/2 mL Solution For Nebulization
2 ml INHALATION R BID
Actemra 400 mg/20 mL (20 mg/mL) Solution
400 mg IV Q4W
Spiriva Respimat 2.5 mcg/actuation Mist
2 puff INHALATION R HS
Combivent Respimat 20-100 mcg/actuation Mist
1 puff INHALATION R QIDPRN PRN (Reason: sob)
azithromycin 250 mg tablet
250 mg PO MOWEFR
cyclosporine [Restasis] 0.05 % dropperette
1 drp BOTH EYES BID
torsemide 20 mg Tablet
20 mg PO DAILYPRN PRN (Reason: edema)
therapeutic multivitamin Tablet
1 tab PO MOWEFR
spironolactone 25 mg Tablet
25 mg PO DAILYPRN PRN (Reason: blood pressure)
cholecalciferol (vitamin D3) [Vitamin D3] 25 mcg (1,000 unit) Tablet
25 mcg PO MOTUWETHFRSA
ascorbic acid (vitamin C) [Vitamin C] 1,000 mg Tablet
1,000 mg PO MOTUWETHFRSA
sulfasalazine 500 mg Tablet
500 mg PO BID
potassium chloride 10 mEq Tablet Extended Release
10 meq PO DAILYPRN PRN (Reason: supplement)
cyanocobalamin (vitamin B-12) 50 mcg Tablet
50 mcg PO MOWEFR
Citrucel 500 mg Tablet
1,000 mg PO DAILY
albuterol sulfate 90 mcg/actuation Hfa Aerosol Inhaler
2 puff INHALATION R Q4HPRN PRN (Reason: sob)
Ohtuvayre 3 mg/2.5 mL Suspension For Nebulization
2.5 ml INHALATION R BID
Patient Comments:
11/13/2024, pt. fills through [facility].
Chelated Magnesium 200 mg tablet
200 mg PO MOTUWETHFRSA
zinc 30 mg tablet
30 mg PO MOWEFR
prednisone 5 mg tablet
5 mg PO HS
Discharge Orders:
Discharge Patient (As Directed); Ordered 11/14/24
Ordered By: Ryley Dawson
Discharge Date and Time
Print Language: OMANI
[2024-11-14 15:00] VITALS: BP 115/51
[2024-11-14 19:05] LABS: Hepatitis C Antibody Negative (Negative)
== END 2024-11-14 18:00 | disposition home or self-care (01) ==
LOC: 4 WEST ACU 15:20
PROVIDERS: ADMITTING PHYSICIAN Internal Medicine; CONSULT PHYSICIAN Internal Medicine Critical Care Medicine; EMERGENCY PHYSICIAN Emergency Medicine; FAMILY PHYSICIAN Family Medicine
DX: J38.3 Other diseases of vocal cords (principal); I10 Essential (primary) hypertension; I89.0 Lymphedema, not elsewhere classified; J43.9 Emphysema, unspecified; J96.11 Chronic respiratory failure with hypoxia; F41.9 Anxiety disorder, unspecified; G43.909 Migraine, unspecified, not intractable, without status migrainosus; M06.9 Rheumatoid arthritis, unspecified; M81.0 Age-related osteoporosis without current pathological fracture; D63.8 Anemia in other chronic diseases classified elsewhere; R73.03 Prediabetes; Z79.52 Long term (current) use of systemic steroids; Z79.899 Other long term (current) drug therapy; Z87.891 Personal history of nicotine dependence; Z99.81 Dependence on supplemental oxygen
CPT/HCPCS: 71046; 80048; 80053; 83880; 84484; 85025; 86803; 93005; 93306; 94640; 96374; 97163; 97167; 99291; G0378

== ENCOUNTER 2024-12-23 16:52 | Inpatient (IN) | payer MEDICARE, SELFPAY ==
[2024-12-23] VITALS (9 sets, daily range): BP systolic 93–115; BP diastolic 51–70
[2024-12-23 13:00] LABS: Hematocrit 34.1 % (37.0-47.0); Hemoglobin 9.3 g/dL (12.0-16.0); Mean Corp Hgb Conc. 27.3 g/dL (33.0-37.0); Mean Corpuscular Volume 82.2 fL (81.0-99.0); Nucleated Red Blood Cells % 0 %; Platelet Count 258 10^3/uL (130-400); Red Cell Dist. Width 15.9 % (11.5-14.5)
[2024-12-23 13:16] LABS: ALT (SGPT) 19 U/L (0-35); AST (SGOT) 27 U/L (14-36); Albumin 3.9 g/dl (3.5-5.0); Alkaline Phosphatase 136 U/L (38-126); Blood Urea Nitrogen 15 mg/dl (7-17); Calcium 9.6 mg/dl (8.4-10.2); Chloride 97 mmol/L (98-107); Estimated Creatinine Clearance 57 ml/min; Glucose 92 mg/dl (70-99); Potassium 4.4 mmol/L (3.5-5.1); Sodium 143 mmol/L (135-145); Total Protein 6.4 g/dl (6.3-8.2); eGFR > 60.00
[2024-12-23 13:20] LABS: COVID-19 Antigen Negative (Negative)
[2024-12-23 13:27] LABS: Troponin I 0.013 ng/ml
[2024-12-23 13:37] LABS: Carbon Dioxide 42 mmol/L (22-30)
[2024-12-23] MEDS: DUONEB 3 ML INH ×2 (13:43→19:22)
[2024-12-23] MEDS: DECADRON 6 MG IV (13:43)
--- NOTE | 2024-12-23 14:17 | ED.GENMED ---
History of Present Illness
General
Chief Complaint: Breathing Problem
Source: patient and spouse
Exam Limitations: none
Time Seen by Provider: 12/23/24 13:27
Nursing documentation reviewed up to this point in time: agreed with
History of Present Illness
History of Present Illness:
74-year-old female COPD oxygen steroid-dependent 4 mg a day followed at the [facility] Dr. Shi iron deficiency anemia rheumatoid migraines presents with shortness of breath acute on chronic worse over the past week or 2 increased oxygen
requirement up to 5 or 6 L sats in the 80s with any exertion no leg edema no fever she is on chronic suppressive antibiotics, due to get her iron infusion no fevers no hemoptysis
Past History
Past History
ED Past Medical History: COPD (emphysema) and Other (anemia, RA, Migraines, )
ED Past Surgical History: , Gynecological (Hysterectomy, Fibroid removed, ), Orthopedic (Right wrist surgery, Left tibial fracture) and Other (Dental surgery cataracts, )
Social History
Tobacco: Former smoker
Alcohol: None
Drug: None
Personal:
Living: with family
Employment: Other
Family History
Family History: Other
Review of Systems
Review of Systems
All Other Systems: Not applicable
Constitutional: Reports fatigue; Denies fever
Respiratory: Reports cough and trouble breathing; Denies hemoptysis
Cardiac: Reports no symptoms
ABD/GI: Reports no symptoms
Phy Exam
Physical Exam
Physical Exam:
Physical Exam
General: Frail dyspneic female
Neck: No jaundice
Heart: s1/s2 regular rate and rhythm, no murmur. equal radial pulses.
Lungs: Crackles left greater than right with wheezing
Abdomen: Not tender
Neuro: alert and oriented. no focal neurological deficits
Skin: no rash
Psychiatric: well kept. interactive and cooperative
Extremities: Trace edema
Scores
Heart Failure Risk
Heart Failure Risk Score: Not Applicable
Course
Orders/Labs/Results
Orders:
Orders
12/23/24 12:24
Electrocardiogram (*1) Urgent
Reason for Study: Chest Pain
EKG- Treatment ONCE
12/23/24 12:42
COVID-19 Antigen Urgent
Source: Nasal Swab
Complete Blood Count/With Diff Urgent
Comprehensive Metabolic Panel Urgent
NT-proBNP Urgent
Troponin I Urgent
12/23/24 13:24
CR Chest - 2 Views Urgent
Comment:
Reason For Exam: sob
12/23/24 13:35
Ipratropium/Albuterol Sulfate [Duoneb] 3 ml INH R NOW STA
12/23/24 13:36
Dexamethasone Sod Phosphate [Decadron] 6 mg IV NOW STA
12/23/24 15:06
Influenza A+B Rapid Molecular Routine
TATE Source: Nasal Swab
Specimen Description:
Abnormal Lab Results
12/23/24
12:42
RBC 4.15 L 10^6/uL
(4.20-5.40)
Hgb 9.3 L g/dL
(12.0-16.0)
Hct 34.1 L %
(37.0-47.0)
MCH 22.4 L pg
(27.0-31.0)
MCHC 27.3 L g/dL
(33.0-37.0)
RDW 15.9 H %
(11.5-14.5)
Absolute Neuts (auto) 7.6 H 10^3/uL
(1.4-6.5)
Absolute Lymphs (auto) 0.5 L 10^3/uL
(1.2-3.4)
Absolute Monos (auto) 1.2 H 10^3/uL
(0.1-0.6)
Neutrophils % 80.3 H %
(42.2-75.2)
Lymphocytes % 5.5 L %
(20.5-51.1)
Monocytes % 12.6 H %
(1.7-9.3)
Chloride 97 L mmol/L
(98-107)
Carbon Dioxide 42 H mmol/L
(22-30)
Creatinine 0.4 L mg/dL
(0.6-1.0)
Alkaline Phosphatase 136 H U/L
(38-126)
12/23/24 12:42
12/23/24 12:42
Vital Signs
Initial and Last Documented VS:
Initial Vital Signs
BP
115/70
12/23/24 12:23
Last Documented Vital Signs
Temp Pulse Resp BP Pulse Ox
98.3 F 110 28 95/55 100
12/23/24 12:24 12/23/24 13:00 12/23/24 13:00 12/23/24 13:00 12/23/24 14:19
*Pulse Oximetry
SaO2: 100
Nasal Cannula flow liters per minute: 5
Oxygen Mode of Delivery: Room air
Patient hypoxic: yes
*Critical Care Note
Total Time (30-74mins, 75-104mins- exclusive of procedures): Not Applicable
ED Attending Note
-
Portions of this chart may have been created with voice recognition software.� Occasional wrong word or��sound alike� substitutions may have occurred due to the inherent limitations of voice recognition software.
Discharge Plan
Departure
Prescriptions:
No Action
ipratropium-albuterol 0.5 mg-3 mg(2.5 mg base)/3 mL Solution For Nebulization
3 ml INHALATION R QID
lidocaine 4 % Adhesive Patch,Medicated
1 patch TOPICAL DAILYPRN PRN (Reason: L knee & L hip)
alendronate 70 mg Tablet
70 mg PO MARTELL
leflunomide 10 mg Tablet
20 mg PO HS
valacyclovir 500 mg Tablet
500 mg PO HS
budesonide 0.5 mg/2 mL Suspension For Nebulization
0.5 mg inhalation R BID
Eugene-24 200 mg Capsule,Extended Release 24hr
200 mg PO HS
arformoterol [Brovana] 15 mcg/2 mL Solution For Nebulization
2 ml INHALATION R BID
Actemra 400 mg/20 mL (20 mg/mL) Solution
400 mg IV Q4W
Spiriva Respimat 2.5 mcg/actuation Mist
2 puff INHALATION R HS
Combivent Respimat 20-100 mcg/actuation Mist
1 puff INHALATION R QIDPRN PRN (Reason: sob)
azithromycin 250 mg tablet
250 mg PO MOWEFR
cyclosporine [Restasis] 0.05 % dropperette
1 drp BOTH EYES BID
torsemide 20 mg Tablet
20 mg PO DAILYPRN PRN (Reason: edema)
therapeutic multivitamin Tablet
1 tab PO MOWEFR
spironolactone 25 mg Tablet
25 mg PO DAILYPRN PRN (Reason: blood pressure)
cholecalciferol (vitamin D3) [Vitamin D3] 25 mcg (1,000 unit) Tablet
25 mcg PO MOTUWETHFRSA
ascorbic acid (vitamin C) [Vitamin C] 1,000 mg Tablet
1,000 mg PO MOTUWETHFRSA
sulfasalazine 500 mg Tablet
500 mg PO BID
potassium chloride 10 mEq Tablet Extended Release
10 meq PO DAILYPRN PRN (Reason: supplement)
cyanocobalamin (vitamin B-12) 50 mcg Tablet
50 mcg PO MOWEFR
Citrucel 500 mg Tablet
1,000 mg PO DAILY
albuterol sulfate 90 mcg/actuation Hfa Aerosol Inhaler
2 puff INHALATION R Q4HPRN PRN (Reason: sob)
Ohtuvayre 3 mg/2.5 mL Suspension For Nebulization
2.5 ml INHALATION R BID
Patient Comments:
11/13/2024, pt. fills through [facility].
Chelated Magnesium 200 mg tablet
200 mg PO MOTUWETHFRSA
zinc 30 mg tablet
30 mg PO MOWEFR
prednisone 5 mg tablet
5 mg PO HS
prednisone 20 mg tablet
40 mg PO DAILY Qty: 8 0RF
Referrals:
Odalis Maldonado DO [Family Provider, Family Practice]
Interventions
Interventions:
*Risk Screen - Suicide Last Done: 12/23/24 12:24
*General Assessment Last Done: 12/23/24 12:24
*Neglect/Abuse Screening Last Done: 12/23/24 12:24
ED- Cardiac Assessment Last Done: 12/23/24 13:00
ED- Pulmonary Assessment Last Done: 12/23/24 13:00
Discharge Date and Time
Print Language: POLISH
--- NOTE | 2024-12-23 15:35 | HPS.HSE ---
Family Physician
-
Family Physician: Odalis Maldonado
Chief Complaint
-
Shortness of breath
History of Present Illness
This is a 74-year-old female with past medical history of COPD,on steroid and antibiotics, O2 dependence on 5 L at baseline, rheumatoid arthritis, paradoxical vocal cord dysfunction, osteoporosis, iron deficiency anemia currently on iron infusions
who presents to ED for progressive shortness of breath and chest tightness. �In addition, patient reports cough productive of yellow sputum.� She denies fever, she denies chills.� She reports taking azithromycin 3 times a week, and 10 mg of
prednisone daily.� She states over the past few days, she has had worsening shortness of breath on exertion.� She reports pulse ox drops into the 70s with exertion.� She denies night sweats, denies hemoptysis. In addition, patient reports history of
iron deficiency anemia. She reports she gets iron infusion 2 times a week. Reports has gotten 1 infusion in the past. She reports she is scheduled for iron infusion today.
Upon presentation to the ED, BP 115/70, pulse 105, respiratory rate 17, O2 sat 96% requiring 5 L of oxygen, temperature 98.3.� Laboratory showed WBC 9.5 hemoglobin 9.3.� CO2 42, ALP 136.� Chest x-ray reported No radiographic evidence of acute
cardiopulmonary abnormality.
Medical History
Past Medical History
Past Medical History: Reports Other (COPD-severe on chronic O2. Migraines. Chronic lower extremity lymphedema. Anxiety. Osteoporosis.Rheumatoid Tritus. Anemia. Hypertension. Prediabetes. . Hysterectomy. Right wrist surgery. Left
tibial fracture surgery. Dental surgery. Cataract.)
Past Surgical History: Reports Other
Social History
Tobacco: Former Smoker ([id number], quit start 2005)
Alcohol: None
Drug: None
Personal:
Living: With Family
Family History
Family History: Not pertinent
Allergies / Home Medications
Allergies reflects when Allergies were last updated in [facility].
Home Medications with original date entered in [facility]
Allergy/Medication List:
Allergies
Allergy/AdvReac Type Severity Reaction Status Date / Time
mannitol (From Reclast) Allergy Swelling Verified 12/23/24 12:28
water for injection,sterile Allergy Swelling Verified 12/23/24 12:28
(From Reclast)
zoledronic acid (From Allergy Swelling Verified 12/23/24 12:28
Reclast)
Home Medications
alendronate 70 mg tablet 70 mg PO MARTELL osteoporosis 06/27/23
arformoterol 15 mcg/2 mL solution for nebulization (Brovana) 2 ml inhalation R BID 06/27/23
azithromycin 250 mg tablet 250 mg PO MOWEFR copd 06/27/23
budesonide 0.5 mg/2 mL suspension for nebulization 0.5 mg inhalation R BID 06/27/23
cyclosporine 0.05 % eye drops in a dropperette (Restasis) 1 drp BOTH EYES BID dry eyes 06/27/23
ipratropium 0.5 mg-albuterol 3 mg (2.5 mg base)/3 mL nebulization soln 3 ml inhalation R QID 06/27/23
ipratropium 20 mcg-albuterol 100 mcg/actuation mist for inhalation (Combivent Respimat) 1 puff inhalation R QIDPRN PRN sob 06/27/23
leflunomide 10 mg tablet 20 mg PO HS rheumatoid arthritis 06/27/23
lidocaine 4 % topical patch 1 patch topical DAILYPRN PRN L knee & L hip 06/27/23
theophylline 200 mg capsule,extended release 24 hr (Eugene-24) 200 mg PO HS copd 06/27/23
tiotropium bromide 2.5 mcg/actuation mist for inhalation (Spiriva Respimat) 2 puff inhalation R HS copd 06/27/23
tocilizumab 400 mg/20 mL (20 mg/mL) intravenous solution (Actemra) 400 mg IV Q4W rheumatoid arthritis 06/27/23
valacyclovir 500 mg tablet 500 mg PO HS viral infection 06/27/23
cholecalciferol (vitamin D3) 25 mcg (1,000 unit) tablet (Vitamin D3) 25 mcg PO MOTUWETHFRSA Supplement 07/16/23
spironolactone 25 mg tablet 25 mg PO DAILYPRN PRN blood pressure 07/16/23
therapeutic multivitamin 1 tab PO MOWEFR Supplement 07/16/23
torsemide 20 mg tablet 20 mg PO DAILYPRN PRN edema 07/16/23
Chelated Magnesium 200 mg PO MOTUWETHFRSA 11/13/24
albuterol sulfate 90 mcg/actuation aerosol inhaler 2 puff inhalation R Q4HPRN PRN sob 11/13/24
ascorbic acid (vitamin C) 1,000 mg tablet (Vitamin C) 1,000 mg PO MOTUWETHFRSA 11/13/24
cyanocobalamin (vitamin B-12) 50 mcg tablet 50 mcg PO MOWEFR 11/13/24
ensifentrine 3 mg/2.5 mL suspension for nebulization (Ohtuvayre) 2.5 ml inhalation R BID 11/13/24
methylcellulose (laxative) 500 mg tablet (Citrucel) 1,000 mg PO DAILY 11/13/24
potassium chloride 10 mEq tablet,extended release 10 meq PO DAILYPRN PRN supplement 11/13/24
prednisone 5 mg tablet 5 mg PO HS rheumatoid arthritis 11/13/24
sulfasalazine 500 mg tablet 500 mg PO BID 11/13/24
zinc 30 mg PO MOWEFR 11/13/24
prednisone 20 mg tablet 40 mg (2 x 20 mg) PO DAILY #8 tabs 11/14/24
Review of Systems
-
A 12 point ROS was completed and negative except as noted: Yes
Constitutional: Reports Other (All review of systems obtained and negative except as documented in HPI)
Physical Exam
Vital Signs
Vital Signs
Temp Pulse Resp BP Pulse Ox
98.3 F 110 28 95/55 100
12/23/24 12:24 12/23/24 13:00 12/23/24 13:00 12/23/24 13:00 12/23/24 14:19
Physical Exam
General: Well Developed and Well Nourished
HEENT: Atraumatic
Respiratory: Wheezes (Expiratory) and Decreased Breath Sounds
Cardiac: S1/S2, Regular Rhythm and Tachycardia
GI: Soft, Non Tender, Non Distended and Normal Bowel Sounds
Musculoskeletal: No Edema
Neuro: Awake, Alert, Oriented and AO x 3
Psych: Calm
Laboratory Results
-
12/23/24 12:42
12/23/24 12:42
Laboratory Results
Total Bilirubin 0.4 mg/dl (0.2-1.3) 12/23/24 12:42
AST 27 U/L (14-36) 12/23/24 12:42
ALT 19 U/L (0-35) 12/23/24 12:42
Alkaline Phosphatase 136 U/L (38-126) H 12/23/24 12:42
Troponin I 0.013 ng/ml 12/23/24 12:42
Impression/Plan
-
Assessment/plan
#Acute on chronic hypoxic respiratory insufficiency secondary to COPD exacerbation
-CXR- No radiographic evidence of acute cardiopulmonary abnormality.
-Given Decadron 6 mg, DuoNebs in the ED
-Continue Decadron 4mg Q8, Duonebs
-Wean oxygen to baseline
-Pulm consult
-Continue chronic azithromycin
-Acapella device
#Chronic Anemia
#Iron deficiency anemia
-Patient reports she is currently on iron infusion (1 out of 6 gotten prior to admission)
-Scheduled for IV iron supplementation today
-Will give IV iron Now.
#Anxiety
-Continue Ativan
#Rheumatoid arthritis
-On Actemra, chronic daily prednisone
-Continue leflunomide
#Essential Hypertension
-Hold Spironolactone, torsemide given soft BP
#Osteoporosis
-Continue alendronate
#Herpes prophylaxis
-Continue valacyclovir
#paradoxical vocal cord dysfunction
-scheduled for ENT eval in one month
#Former smoker
CODE STATUS full code
DVT prophylaxis Lovenox
--- NOTE | 2024-12-23 16:12 | W.PN.UPDATE ---
Update Note
Progress Note Update
This note serves as an addendum to the H&P by PGY3
HPI�
74F HX 5L O2 and steroid dependent advanced COPD followed at the [facility] Dr. Shi, iron deficiency anemia RA, HX migraines seen at ER:
- shortness of breath acute on chronic worse over the past week or 2
- increased oxygen requirement up to 5 or 6 L
- POx 80s with any exertion
- productive cough with yellow sputum
- no leg edema
- no fever
- on chronic suppressive PO Z max
Relevant VS: BP 95/55 HR 110 RR 28 POx 95 --> 100
PE
Gen: slightly anxious but is not in respiratory distress, appears chronically ill.
Eyes: no scleral icterus.
Neck: supple.
CV: RRR, +S1/S2, no m/r/g.
Resp: minimally decreased air exchange, clear to auscultation bilaterally.
faint expiratory wheezing coming from the patient's oropharynx.
Abd: +BS, soft, NT, ND
Skin: No rashes.
Neuro: CN 2-12 intact, non-focal.
Psych: Appears slightly anxious
Relevant Data
11/14/24 12/23/24
06:10 12:42
WBC 9.5
Hgb 9.1 L 9.3 L
Carbon Dioxide 38 H 42 H
12/23/24
12:42
RBC 4.15 L
Hgb 9.3 L
Hct 34.1 L
MCH 22.4 L
MCHC 27.3 L
RDW 15.9 H
Absolute Neuts (auto) 7.6 H
Absolute Lymphs (auto) 0.5 L
Absolute Monos (auto) 1.2 H
Neutrophils % 80.3 H
Lymphocytes % 5.5 L
Monocytes % 12.6 H
Chloride 97 L
Carbon Dioxide 42 H
Creatinine 0.4 L
Alkaline Phosphatase 136 H
NEG Covid
CXR: No radiographic evidence of acute cardiopulmonary abnormality.
EKG
SINUS TACHYCARDIA
RIGHT ATRIAL ENLARGEMENT
BORDERLINE ECG
WHEN COMPARED WITH ECG OF 13-Nov-2024 15:22,
FUSION COMPLEXES ARE NO LONGER PRESENT
PREMATURE VENTRICULAR COMPLEXES ARE NO LONGER PRESENT
Confirmed by JOSHUA GAR MD ([id number]) on 12/23/2024 12:59:27 PM
Last hospitalist admission: Date of Admission: 11/13/24 - Date of Discharge: 11/14/24
Primary diagnoses:
Shortness of breath due to paradoxical vocal cord dysfunction and anxiety in the setting of underlying COPD without acute exacerbation
Chronic hypoxemic and hypercapnic respiratory failure due to COPD on 5L NC O2 at baseline
Secondary diagnoses:
Persistent ongoing headaches secondary to migraine
Anxiety
Rheumatoid arthritis
Anemia of chronic disease
Prediabetes
Osteoporosis
Former smoker
ASSESSMENT & PLAN
COPD flare
HX O2 and steroid dependent advanced COPD
Former smoker
- NEG CXR for PNA
- IV Decadron 4mg q8h
- Nebs q6h and PRN
- on chronic azithromycin
- Pul consult
Chr stable NC anemia
Interval worsening Hypercarbia with hypochloremia suspect contraction alkalosis vs steroid induced
Normokalemia
Nl Cr , eGFR >60
Nl pro BNP
Anxiety
-Continue Ativan
Rheumatoid arthritis HX
-on chr PO prednisone
-on Actemra
-on leflunomide
Herpes prophylaxis
-Continue valacyclovir
Anemia of chronic disease
-Hemoglobin stable
Prediabetes
-Not on treatment
Osteoporosis
-Continue alendronate
DVT Px: SQH
Full code
IP MS
[2024-12-23] MEDS: FERRLECIT 110 MG IV (16:55)
[2024-12-23 17:13] LABS: Iron 48 ug/dl (37-170)
[2024-12-23 17:22] LABS: Total Iron Binding Capacity 397 ug/dl (265-497)
[2024-12-23] MEDS: PULMICORT 0.5 MG INH (19:22)
[2024-12-23 19:37] LABS: Ferritin 158.0 ng/ml (11.1-264.0)
[2024-12-23] MEDS: LOVENOX 40 MG SC (21:07)
[2024-12-23] MEDS: VITAMIN C 1000 MG PO (21:08)
[2024-12-23] MEDS: THERAGRAN 1 TABLET PO (21:08)
[2024-12-23] MEDS: VITAMIN B-12 50 MCG PO (21:08)
[2024-12-23] MEDS: MAGNESIUM OXIDE 250 MG PO (21:09)
[2024-12-23] MEDS: VITAMIN D3 (cholecalciferol) 25 MCG PO (21:09)
[2024-12-23] MEDS: ZITHROMAX 250 MG PO (21:09)
[2024-12-23] MEDS: AZULFIDINE 500 MG PO (21:10)
[2024-12-23] MEDS: VALTREX 500 MG PO (21:10)
[2024-12-23] MEDS: RESTASIS 0.05% OPHTHALMIC EMULSION 1 DROPS BOTH EYES (21:10)
[2024-12-23] MEDS: ZINC PO (21:11)
[2024-12-23] MEDS: DECADRON 4 MG IV (21:11)
[2024-12-23] MEDS: LIDOCAINE 4% PATCH 1 PATCH TOPICAL (21:43)
[2024-12-24] MEDS: DECADRON 4 MG IV ×2 (04:49→17:33)
[2024-12-24 07:00] VITALS: BP 113/58
--- NOTE | 2024-12-24 07:06 | W.PN.HOSP.TC ---
Today's Communication/Plan
-
steroids tapered
wean O2 supplementation as tolerated
PT screen appreciated no needs, OT screen pending
VBG CT chest as per Pulm
Resume Torsemide w/ holding parameters
Sertraline
Assessment / Plan
Assessment / Plan
Physical Exam
General: No acute distress, appears comfortable at this time.
HEENT: Atraumatic
Respiratory: Clear to auscultation b/l
Cardiac: S1/S2, Regular Rhythm no murmurs, rubs, or gallops
GI: Soft, Non Tender, Non Distended and Normal Bowel Sounds
Musculoskeletal: No Edema
Neuro: AOx3 conversant coherent
Psych: Calm
74F COPD chronic steroids 4L baseline RA Vocal Cord Dysfunction NEREYDA here with exertional dyspnea increased oxygen requirement suspect COPD exacerbation vs progression end stage COPD.
#Acute on chronic hypoxic respiratory insufficiency secondary to COPD exacerbation
-CXR appreciated No radiographic evidence of acute cardiopulmonary abnormality.
-Given Decadron 6 mg, DuoNebs in the ED
-Continue Decadron 4mg Q8 tapered to Q12, Duonebs
-Wean oxygen to baseline as tolerated
-Continue chronic azithromycin
-Acapella device
-Pulm consult appreciated check AM VBG, checking CT chest PE study
#Chronic Anemia
#Iron deficiency anemia
-Patient reports she is currently on iron infusion
-received IV iron here
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
#Anxiety/depression
-Sertraline resumed
#Rheumatoid arthritis
-On Actemra, chronic daily prednisone
-Continue leflunomide
#Essential Hypertension
-Home Torsemide resumed with holding parameters
-Hold Spironolactone (patient takes prn) given soft BP
#Osteoporosis
-Continue alendronate
#Herpes prophylaxis
-Continue valacyclovir
#paradoxical vocal cord dysfunction
-scheduled for ENT eval in one month
#Former smoker
PT screen appreciated no needs
Pending OT screen
CODE STATUS full code
DVT prophylaxis Lovenox
Discussed with patient and patient's daughter Paul (daughter wants to be included in every conversation with patient, patient will call daughter with her cellphone)
I spent a total of 50 minutes with the patient or on the floor. More than 50% of this time involved counseling and coordination of care.
Anticipated Discharge: 24 - 48 hours
Subjective/Interval History
-
Date of Service: December 24, 2024
No acute distress, resting comfortably in bed. Overall reports feeling well at rest. Patient primary concerned regarding symptoms with exertion.
Objective Data
-
Labs:
Laboratory Results
12/24/24
05:53
WBC Pending
Hgb Pending
Hct Pending
Plt Count Pending
Sodium Pending
Potassium Pending
Chloride Pending
Carbon Dioxide Pending
BUN Pending
Creatinine Pending
Glucose Pending
Calcium Pending
Vital Signs:
Vital Signs
Temp Pulse Resp BP Pulse Ox
99.3 F 102 16 113/59 99
12/23/24 23:46 12/23/24 23:46 12/23/24 23:46 12/23/24 23:46 12/23/24 23:46
I&O
12/23/24 12/24/24 12/25/24
06:59 06:59 06:59
Intake Total 480 / 480
Balance 480 / 480
[2024-12-24] MEDS: PULMICORT 0.5 MG INH ×2 (07:18→19:15)
[2024-12-24] MEDS: DUONEB 3 ML INH ×4 (07:18→19:15)
[2024-12-24 08:01] LABS: Hematocrit 31.3 % (37.0-47.0); Hemoglobin 8.6 g/dL (12.0-16.0); Mean Corp Hgb Conc. 27.5 g/dL (33.0-37.0); Mean Corpuscular Volume 80.9 fL (81.0-99.0); Nucleated Red Blood Cells % 0 %; Platelet Count 240 10^3/uL (130-400); Red Cell Dist. Width 16.1 % (11.5-14.5)
[2024-12-24 08:44] LABS: Blood Urea Nitrogen 19 mg/dl (7-17); Calcium 9.4 mg/dl (8.4-10.2); Chloride 97 mmol/L (98-107); Estimated Creatinine Clearance 57 ml/min; Glucose 110 mg/dl (70-99); Potassium 4.9 mmol/L (3.5-5.1); Sodium 143 mmol/L (135-145); eGFR > 60.00
[2024-12-24 08:55] LABS: Carbon Dioxide 44 mmol/L (22-30)
[2024-12-24] MEDS: RESTASIS 0.05% OPHTHALMIC EMULSION 1 DROPS BOTH EYES ×2 (09:10→19:56)
[2024-12-24] MEDS: VITAMIN C 1000 MG PO (09:11)
[2024-12-24] MEDS: MAGNESIUM OXIDE 250 MG PO (09:11)
[2024-12-24] MEDS: AZULFIDINE 500 MG PO ×2 (09:11→19:56)
[2024-12-24] MEDS: VITAMIN D3 (cholecalciferol) 25 MCG PO (09:11)
--- NOTE | 2024-12-24 14:42 | CM ---
CM met with the patient at bedside to complete IA.
Pt and her spouse live in a 2nd floor apartment with elevator access
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
No hx of SNF or VN, however does have a r/w, w/c, & O2 through [facility]
CM will follow to coordinate all identified discharge planning needs.
Pharmacy: [facility]
PCP: Odalis Maldonado
[2024-12-24 15:32] VITALS: BP 120/63
--- NOTE | 2024-12-24 16:27 | CON.PUL ---
Consultation
Consultation Request
Date/Time Consultation Requested: 12/24/2024
Date/Time Consultation Performed: 12/24/2024
Medical History
-
Chief Complaint: Shortness of breath
History of Present Illness:
Patient is a 74-year-old female with known history of underlying severe COPD chronically on steroid, antibiotics and oxygen. Also has carried diagnosis of rheumatoid arthritis, paradoxical vocal cord dysfunction, osteoporosis and anemia who
presented to emergency room for worsening shortness of breath. Patient had a similar presentation about a month ago which required hospitalization for COPD exacerbation. Patient also has been chronically on azithromycin 3 times a week and
prednisone 10 mg daily. No reported sick contact however. Reported hypoxia down to 70s at home. In the emergency room patient was noted to have wheezing suggestive of COPD exacerbation and she was admitted to the hospitalist for further input.
Pulmonary consultation was requested for further management
Past Medical History: Reports Other (COPD-severe on chronic O2. Migraines. Chronic lower extremity lymphedema. Anxiety. Osteoporosis.Rheumatoid Tritus. Anemia. Hypertension. Prediabetes. . Hysterectomy. Right wrist surgery. Left
tibial fracture surgery. Dental surgery. Cataract.)
Past Surgical History: Reports Other
Social History
Tobacco: Former Smoker (95-oblo-jvoy, quit start 2005)
Alcohol: None
Drug: None
Personal:
Living: With Family
Family History
Family History: Not pertinent
Allergies / Home Medications
Allergies
Allergy/AdvReac Type Severity Reaction Status Date / Time
mannitol (From Reclast) Allergy Swelling Verified 12/23/24 12:28
water for injection,sterile Allergy Swelling Verified 12/23/24 12:28
(From Reclast)
zoledronic acid (From Allergy Swelling Verified 12/23/24 12:28
Reclast)
Home Medications
�Medication �Instructions �Recorded �Confirmed �Last Taken �Type
alendronate 70 mg tablet 70 mg PO MARTELL osteoporosis 06/27/23 12/23/24 12/18/24 History
arformoterol 15 mcg/2 mL solution 2 ml inhalation R BID 06/27/23 12/23/24 12/23/24 History
for nebulization (Brovana)
azithromycin 250 mg tablet 250 mg PO MOWEFR@1999 copd 06/27/23 12/23/24 12/21/24 History
budesonide 0.5 mg/2 mL suspension 0.5 mg inhalation R BID 06/27/23 12/23/24 12/23/24 History
for nebulization
cyclosporine 0.05 % eye drops in a 1 drp BOTH EYES BID dry eyes 06/27/23 12/23/24 12/23/24 History
dropperette (Restasis)
ipratropium 0.5 mg-albuterol 3 mg 3 ml inhalation R QID 06/27/23 12/23/24 12/23/24 History
(2.5 mg base)/3 mL nebulization
soln
ipratropium 20 mcg-albuterol 100 1 puff inhalation R QIDPRN PRN sob 06/27/23 12/23/24 1 Week Ago History
mcg/actuation mist for inhalation ~11/06/24
(Combivent Respimat)
leflunomide 10 mg tablet 20 mg PO HS rheumatoid arthritis 06/27/23 12/23/24 12/22/24 History
lidocaine 4 % topical patch 1 patch topical DAILYPRN PRN right 06/27/23 12/23/24 Unknown History
knee
theophylline 200 mg 200 mg PO HS copd 06/27/23 12/23/24 12/22/24 History
capsule,extended release 24 hr
(Eugene-24)
tiotropium bromide 2.5 2 puff inhalation R HS copd 06/27/23 12/23/24 11/12/24 History
mcg/actuation mist for inhalation
(Spiriva Respimat)
tocilizumab 400 mg/20 mL (20 400 mg IV Q4W rheumatoid arthritis 06/27/23 12/23/24 Unknown History
mg/mL) intravenous solution
(Actemra)
valacyclovir 500 mg tablet 500 mg PO HS viral infection 06/27/23 12/23/24 12/22/24 History
cholecalciferol (vitamin D3) 25 25 mcg PO MOTUWETHFRSA Supplement 07/16/23 12/23/24 11/12/24 History
mcg (1,000 unit) tablet (Vitamin
D3)
spironolactone 25 mg tablet 25 mg PO DAILYPRN PRN blood 07/16/23 12/23/24 2 Days Ago History
pressure-when she remembers ~11/11/24
therapeutic multivitamin 1 tab PO MOWEFR@1999 Supplement 07/16/23 12/23/24 11/11/24 History
torsemide 20 mg tablet 20 mg PO QPM 07/16/23 12/23/24 2 Days Ago History
~11/11/24
albuterol sulfate 90 mcg/actuation 2 puff inhalation R Q4HPRN PRN sob 11/13/24 12/23/24 11/12/24 History
aerosol inhaler
ascorbic acid (vitamin C) 1,000 mg 1,000 mg PO QPM 11/13/24 12/23/24 11/12/24 History
tablet (Vitamin C)
cyanocobalamin (vitamin B-12) 50 50 mcg PO MOWEFR@199911/13/24 12/23/24 12/21/24 History
mcg tablet
ensifentrine 3 mg/2.5 mL 2.5 ml inhalation R BID 11/13/24 12/23/24 12/23/24 History
suspension for nebulization
(Ohtuvayre)
magnesium oxide 400 mg PO QPM ##0 11/13/24 12/23/24 11/12/24 History
methylcellulose (laxative) 500 mg 1,000 mg PO QPM 11/13/24 12/23/24 11/12/24 History
tablet (Citrucel)
potassium chloride 10 mEq 10 meq PO DAILYPRN PRN 11/13/24 12/23/24 2 Days Ago History
tablet,extended release supplement-when she remembers ~11/11/24
prednisone 5 mg tablet 5 mg PO BID rheumatoid arthritis 11/13/24 12/23/24 12/23/24 History
sulfasalazine 500 mg tablet 500 mg PO BID 11/13/24 12/23/24 12/23/24 History
acetaminophen 650 mg 650 mg PO [id number] PRN headaches 12/23/24 12/23/24 12/20/24 History
tablet,extended release
budesonide 160 mcg-glycopyr 9 2 inh inhalation R BID 12/23/24 12/23/24 Unknown History
mcg-formot 4.8 mcg/actuation HFA
inhaler (Breztri Aerosphere)
rimegepant 75 mg disintegrating 75 mg PO DAILYPRN PRN mirgraines 12/23/24 12/23/24 Unknown History
tablet (Nurtec ODT)
sertraline 25 mg tablet 25 mg PO HS 12/23/24 12/23/24 12/22/24 History
Review of Systems
-
Hematologic/Lymphatic: Other (All 14 systems reviewed and negative except as stated above in the history of present illness.)
Vitals / Labs / Diagnostic Testing
Vital Signs
Temp Pulse Resp BP Pulse Ox
98.7 F 107 20 120/63 99
12/24/24 15:32 12/24/24 15:32 12/24/24 15:32 12/24/24 15:32 12/24/24 15:32
Lab Data
12/24/24 05:53
12/24/24 05:53
Microbiology
12/23/24 15:06 Nasal Swab Influenza Types A & B (WARNER) - Final
Negative for Influenza A & B, NAAT
Negative results must be combined with clinical observations
and patient history.
Nucleic Acid Amplification test (NAAT)performed on the
[employer] platform.
Diagnostic Testing:
Physical Exam
-
HEENT: Normocephalic
Cardiovascular: S1/S2
Respiratory: Wheeze
GI: Non Distended
Neurology: Awake and Alert
Skin: Warm
General: Comfortable
Assessment
-
#1. Acute on chronic hypoxic respiratory failure with acute COPD exacerbation. (Steroids and O2 dependent COPD, FEV1 22%)
- Followed by Dr. Shi at [place]. At baseline patient uses Ensifentrine, supplemental oxygen, prednisone 10 mg daily, azithromycin Thursday, budesonide nebulized, Brovana and nebulized, in addition patient uses either Combivent
inhaler or Spiriva.
- FEV1 is 22% postbronchodilator, consistent with severe COPD
- Currently patient is wheezing, no obvious infiltrate noted on chest x-ray
- Considering worsening symptoms and otherwise unchanged x-ray, will proceed with the CT PE to evaluate for any occult pulmonary embolism or infiltrate. Patient is otherwise afebrile, has normal WBC count and no purulent expectoration noted.
- Agree with current treatment of azithromycin Thursday, DuoNeb scheduled along with budesonide and IV steroids.
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 Eosinophil count noted to be around 100. If she continues to do poorly, may consider Dupixent subcu injections as outpatient considering her steroid
dependent COPD with significant symptoms and hospitalizations despite maximal inhaled therapy.
- Influenza A, B, COVID-19 screen negative. WBC count normal, eosinophil count 100, afebrile. Chronically elevated serum bicarb. BNP 514, troponin 0.013
- With elevated serum bicarb, suspect patient has chronic CO2 retention. Check VBG in the morning. If she has consistently elevated CO2, she might qualify for nightly BiPAP therapy to prevent hospitalization related to COPD
- Will review CT scan if patient has significant emphysematous changes, she might need evaluation for bronchoscopic lung volume reduction.
Other medical diagnoses:
-Rheumatoid arthritis
-Chronic anemia
-Hypertension
-Anxiety
-Osteoporosis
DVT prophylaxis. Subcu Lovenox.
Total time spent on this consultation/encounter __85__ minutes which includes review of history, physical exam, medications, laboratory data, personal review of imaging, extensive review of outpatient records, discussion with care team and
respiratory therapy.
Extensive records reviewed, and discussed with patient's daughter as well as via phone. Reviewed [place] records that patient could provide through a phone elizabeth.
Data:
CXR 12/2024: No radiographic evidence of acute cardiopulmonary abnormality.
ECHO 11/2024: Low normal LV systolic function with left ventricular ejection fraction
estimated by Juarez's method 50%
Normal left ventricular wall thickness
Normal diastolic function.
Normal atrial dimensions
Aortic valve poorly visualized with mildly thickened leaflets consistent with
aortic sclerosis without stenosis. No significant aortic insufficiency.
Trace mitral and tricuspid insufficiency
Unable to estimate right heart pressures due to paucity of TR jet.
No pericardial effusion
No prior study available for comparison
[2024-12-24] MEDS: LOVENOX 40 MG SC (17:33)
[2024-12-24 18:39] VITALS: BMI 19.4
[2024-12-24] MEDS: VALTREX 500 MG PO (19:56)
[2024-12-24] MEDS: ZOLOFT 25 MG PO (21:11)
[2024-12-24 23:42] VITALS: BP 117/66
[2024-12-25] MEDS: OCEAN, SALINE MIST 1 SPRAYS NASAL (00:19)
[2024-12-25] MEDS: DECADRON 4 MG IV ×2 (05:51→17:15)
[2024-12-25 06:22] LABS: Venous Blood Gas B.E. 20.3 mmol/L (-4 to +4); Venous Blood Gas O2 Sat % 99.7 %
[2024-12-25 07:55] VITALS: BP 116/66
[2024-12-25] MEDS: DUONEB 3 ML INH ×4 (07:55→19:09)
[2024-12-25] MEDS: PULMICORT 0.5 MG INH ×2 (07:55→19:09)
[2024-12-25 08:14] LABS: Hematocrit 30.5 % (37.0-47.0); Hemoglobin 8.4 g/dL (12.0-16.0); Mean Corp Hgb Conc. 27.5 g/dL (33.0-37.0); Mean Corpuscular Volume 82.9 fL (81.0-99.0); Platelet Count 255 10^3/uL (130-400); Red Cell Dist. Width 16.9 % (11.5-14.5)
[2024-12-25 08:27] LABS: Blood Urea Nitrogen 21 mg/dl (7-17); Calcium 9.3 mg/dl (8.4-10.2); Chloride 97 mmol/L (98-107); Estimated Creatinine Clearance 57 ml/min; Glucose 92 mg/dl (70-99); Magnesium 2.2 mg/dl (1.6-2.3); Potassium 4.5 mmol/L (3.5-5.1); Sodium 142 mmol/L (135-145); eGFR > 60.00
[2024-12-25 08:38] LABS: Carbon Dioxide 43 mmol/L (22-30)
[2024-12-25] MEDS: AZULFIDINE 500 MG PO ×2 (09:21→20:15)
[2024-12-25] MEDS: RESTASIS 0.05% OPHTHALMIC EMULSION 1 DROPS BOTH EYES ×2 (09:21→20:15)
--- NOTE | 2024-12-25 11:41 | W.PN.HOSP.TC ---
Today's Communication/Plan
-
see A/P
Assessment / Plan
Assessment / Plan
74F PMH COPD, chronic steroids 4L baseline, Vocal Cord Dysfunction, NEREYDA, here with exertional dyspnea, increased oxygen requirement, suspect COPD exacerbation vs progression end stage COPD.
A/P:
# SOB with Acute on chronic hypoxic respiratory failure secondary to COPD exacerbation
CXR appreciated: No radiographic evidence of acute cardiopulmonary abnormality.
Cont current Decadron at 4 mg Q12H
Cont DuoNebs ATC and PRN
Weaned oxygen back to baseline at 4L NC
Continue chronic azithromycin
Cont Acapella device
Appreciate Pulm input
VBG showed chronic hypercapnia
CT PE negative for PE, Suspected changes of emphysema. Overall peripheral prominent size of pulmonary interstitial markings widespread bilaterally at least in part could be chronic. Acute interstitial pneumonitis cannot be excluded. No focal
parenchymal consolidation, pneumothorax or pleural effusion.
Check procal
noted recent echo 11/14 was largely unrevealing: EF 50%, Normal left ventricular wall thickness, Normal diastolic function.
# Chronic Anemia
# Iron deficiency anemia
Patient reports she is currently on iron infusion
IV iron PRN here
iron studies unreliable with recent Iron infusion [employer] (earliest iron studies should be repeated is a month from the last IV iron infusion)
# Anxiety/depression
Sertraline resumed
# Rheumatoid arthritis
On Actemra, chronic daily prednisone
Continue leflunomide
# Essential Hypertension
Home Torsemide resumed with holding parameters
Hold Spironolactone (patient takes prn) given soft BP
# Osteoporosis
Continue alendronate
# Herpes prophylaxis
Continue valacyclovir
# paradoxical vocal cord dysfunction
scheduled for ENT eval in one month
# Former smoker
CODE STATUS full code
DVT prophylaxis Lovenox
DW at bedside. DW daughter on the phone. Updated clinical status with family. Answered all questions.
total time spent 51 min
Anticipated Discharge: 24 - 48 hours
Subjective/Interval History
-
Date of Service: December 25, 2024
Objective Data
-
Labs:
Laboratory Results
12/25/24
06:15
WBC 9.9
Hgb 8.4 L
Hct 30.5 L
Plt Count 255
Sodium 142
Potassium 4.5
Chloride 97 L
Carbon Dioxide 43 H
BUN 21 H
Creatinine 0.6
Glucose 92
Calcium 9.3
Vital Signs:
Vital Signs
Temp Pulse Resp BP Pulse Ox
37.2 C 108 18 116/66 98
12/25/24 07:55 12/25/24 11:19 12/25/24 11:19 12/25/24 07:55 12/25/24 11:19
I&O
12/24/24 12/25/24 12/26/24
06:59 06:59 06:59
Intake Total 480 / 480 960 / 960
Balance 480 / 480 960 / 960
Review of Systems
-
History Source: Patient
Respiratory: Reports Trouble Breathing
Physical Exam
-
General: Well Developed, Well Nourished, Comfortable and Respiratory Distress (chronic)
HEENT: Oxygen (baseline 4L NC )
Respiratory: Clear to Auscultation, Wheezes and Non Labored Respirations
Cardiac: Regular Rhythm and S1/S2
GI: Soft, Nontender, Nondistended and Normal Bowel Sounds
Neuro: Awake, Alert and Oriented
Psych: Calm and Intact Judgement/Insight
Data Reviewed
-
CT Scan: Report Reviewed by me, Discussed with Patient and Discussed with Family
Labs: Labs Reviewed by me
[2024-12-25 13:28] LABS: Procalcitonin < 0.05 ng/ml (0.0-0.25)
--- NOTE | 2024-12-25 13:39 | W.PN.PUL3 ---
Today's Communication / Plan
-
- If continues to improve, can transition to Prednisone in AM, and taper to her dose of 10 mg daily
- Out patient follow up with [facility].
Assessment
-
#1. Acute on chronic hypoxic respiratory failure with acute COPD exacerbation. (Steroids and O2 dependent COPD, FEV1 22%)
- Followed by Dr. Shi at [facility]. At baseline patient uses Ensifentrine, supplemental oxygen, prednisone 10 mg daily, azithromycin Thursday, budesonide nebulized, Brovana and nebulized, in addition patient uses either Combivent
inhaler or Spiriva.
- FEV1 is 22% postbronchodilator, consistent with severe COPD
- Slowly improving wheezing, no obvious infiltrate noted on chest x-ray
- CT suggestive of emphysema, no PE or infiltrates noted
- Agree with current treatment of azithromycin Thursday, DuoNeb scheduled along with budesonide and IV steroids.
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 Eosinophil count noted to be around 100. If she continues to do poorly, may consider Dupixent subcu injections as outpatient considering her steroid
dependent COPD with significant symptoms and hospitalizations despite maximal inhaled therapy.
- Influenza A, B, COVID-19 screen negative. WBC count normal, eosinophil count 100, afebrile. Chronically elevated serum bicarb. BNP 514, troponin 0.013
#2. Chronic hypercapnic respiratory failure.
- VBG 7.37/84 consistent with compensated hypercapnia
- With her advanced COPD and frequent exacerbations, she will likely benefit from nightly positive pressure ventilation/Trilogy. Discussed with patient's daughter and recommended to discuss with Dr. Shi.
Other medical diagnoses:
-Rheumatoid arthritis
-Chronic anemia
-Hypertension
-Anxiety
-Osteoporosis
DVT prophylaxis. Subcu Lovenox.
Total time spent on this consultation/encounter __85__ minutes which includes review of history, physical exam, medications, laboratory data, personal review of imaging, extensive review of outpatient records, discussion with care team and
respiratory therapy.
Extensive records reviewed, and discussed with patient's daughter as well as via phone. Reviewed [facility] records that patient could provide through a phone elizabeth.
Data:
CXR 12/2024: No radiographic evidence of acute cardiopulmonary abnormality.
ECHO 11/2024: Low normal LV systolic function with left ventricular ejection fraction
estimated by Juarez's method 50%
Normal left ventricular wall thickness
Normal diastolic function.
Normal atrial dimensions
Aortic valve poorly visualized with mildly thickened leaflets consistent with
aortic sclerosis without stenosis. No significant aortic insufficiency.
Trace mitral and tricuspid insufficiency
Unable to estimate right heart pressures due to paucity of TR jet.
No pericardial effusion
No prior study available for comparison
Subjective Data
-
Date of Service:
Date of Service: December 25, 2024
Subjective:
Comfortably sitting in bed in no acute distress
Review of Systems
Genitourinary: Other (No new complaints)
Objective Data
Data Reviewed
Vital Signs / I&O / Oxygen:
Vital Signs
Temp Pulse Resp BP Pulse Ox
98.9 F 108 18 116/66 98
12/25/24 07:55 12/25/24 11:19 12/25/24 11:19 12/25/24 07:55 12/25/24 11:19
Intake and Output
12/24/24 12/25/24 12/26/24
06:59 06:59 06:59
Intake Total 480 / 480 960 / 960
Balance 480 / 480 960 / 960
SaO2 98
Nasal Cannula flow liters per 4
minute
Physical Exam
General: Comfortable
HEENT: Normocephalic
Cardiovascular: S1-S2
Respiratory: Wheeze
GI: Soft and Non Distended
Neurology: Awake and Alert
Skin: Warm
Labs/Micro/Reports
Lab Data
12/25/24 06:15
12/25/24 06:15
Microbiology
12/23/24 15:06 Nasal Swab Influenza Types A & B (WARNER) - Final
Negative for Influenza A & B, NAAT
Negative results must be combined with clinical observations
and patient history.
Nucleic Acid Amplification test (NAAT)performed on the
[employer] platform.
[2024-12-25 15:55] VITALS: BP 118/69
[2024-12-25] MEDS: LOVENOX 40 MG SC (17:15)
[2024-12-25] MEDS: VALTREX 500 MG PO (20:15)
[2024-12-25] MEDS: ZOLOFT 25 MG PO (22:58)
[2024-12-25] MEDS: LIDOCAINE 4% PATCH 1 PATCH TOPICAL (23:04)
[2024-12-25 23:15] VITALS: BP 143/62
[2024-12-25 23:45] VITALS: PULSE 2
[2024-12-26 03:03] VITALS: PULSE 2
[2024-12-26] MEDS: DECADRON 4 MG IV ×2 (06:25→17:20)
[2024-12-26 07:00] VITALS: BP 109/64
[2024-12-26] MEDS: DUONEB 3 ML INH ×4 (07:45→19:12)
[2024-12-26] MEDS: PULMICORT 0.5 MG INH ×2 (07:45→19:12)
[2024-12-26] MEDS: AZULFIDINE 500 MG PO ×2 (09:18→19:59)
[2024-12-26] MEDS: RESTASIS 0.05% OPHTHALMIC EMULSION 10 DROPS BOTH EYES ×2 (09:18→19:57)
[2024-12-26] MEDS: FERRLECIT 110 MG IV (09:19)
[2024-12-26] MEDS: ZITHROMAX 250 MG PO (09:21)
[2024-12-26] MEDS: MAGNESIUM OXIDE 250 MG PO (09:21)
[2024-12-26] MEDS: ZINC 50 MG PO (09:21)
[2024-12-26] MEDS: VITAMIN C 1000 MG PO (09:21)
[2024-12-26] MEDS: THERAGRAN 1 TABLET PO (09:22)
[2024-12-26] MEDS: VITAMIN B-12 50 MCG PO (09:25)
[2024-12-26] MEDS: VITAMIN D3 (cholecalciferol) 25 MCG PO (09:26)
[2024-12-26 09:33] LABS: Hematocrit 31.6 % (37.0-47.0); Hemoglobin 8.4 g/dL (12.0-16.0); Mean Corp Hgb Conc. 26.6 g/dL (33.0-37.0); Mean Corpuscular Volume 85.2 fL (81.0-99.0); Platelet Count 250 10^3/uL (130-400); Red Cell Dist. Width 17.2 % (11.5-14.5)
[2024-12-26 10:01] LABS: Blood Urea Nitrogen 15 mg/dl (7-17); Calcium 9.0 mg/dl (8.4-10.2); Chloride 98 mmol/L (98-107); Estimated Creatinine Clearance 57 ml/min; Glucose 100 mg/dl (70-99); Magnesium 2.1 mg/dl (1.6-2.3); Potassium 4.9 mmol/L (3.5-5.1); Sodium 141 mmol/L (135-145); eGFR > 60.00
[2024-12-26 10:14] LABS: Carbon Dioxide 43 mmol/L (22-30)
--- NOTE | 2024-12-26 10:24 | W.PN.PUL.V3 ---
Today's Communication / Plan
-
Wean oxygen
Increase activity
Change Decadron to prednisone 50 mg a slow taper tomorrow with potential discharge tomorrow.
Dr. Guevara extensively spoke to daughter, Paul on 2 separate occasions.
Trying to have Trilogy approved by insurance to be tried as an outpatient.
Outpatient pulmonary rehabilitation if she can-she states that she had Achilles tendon issues and cannot exercise.
Outpatient potential evaluation for Dupixent
Outpatient reevaluation at [facility] for potential transplant..
Outpatient ENT evaluation for possible vocal cord dysfunction.
Bedside spirometry to assess flow-volume loop
Anxiolytics per primary service
Assessment
-
Other medical diagnoses:
-Rheumatoid arthritis
-Chronic anemia
-Hypertension
-Anxiety
-Osteoporosis
#1. Acute on chronic hypoxic respiratory failure with acute COPD exacerbation. (Steroids and O2 dependent COPD, FEV1 22%)
- Followed by Dr. Shi at [facility]. At baseline patient uses Ensifentrine/Ohtyvare, supplemental oxygen, prednisone 10 mg daily, azithromycin Thursday, budesonide nebulized, Brovana and nebulized, in addition patient uses either
Combivent inhaler or Spiriva.
- FEV1 is 22% postbronchodilator, consistent with severe COPD
- Slowly improving wheezing, no obvious infiltrate noted on chest x-ray
- CT suggestive of emphysema, no PE or infiltrates noted
- Agree with current treatment of azithromycin Thursday, DuoNeb scheduled along with budesonide and IV steroids.
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 Eosinophil count noted to be around 100. If she continues to do poorly, may consider Dupixent subcu injections as outpatient considering her steroid
dependent COPD with significant symptoms and hospitalizations despite maximal inhaled therapy.
- Influenza A, B, COVID-19 screen negative. WBC count normal, eosinophil count 100, afebrile. Chronically elevated serum bicarb. BNP 514, troponin 0.013
#2. Chronic hypercapnic respiratory failure.
- VBG 7.37/84 consistent with compensated hypercapnia
- With her advanced COPD and frequent exacerbations, she will likely benefit from nightly positive pressure ventilation/Trilogy. Discussed with patient's daughter and recommended to discuss with Dr. Shi.
Patient has significant chronic hypercapnic respiratory failure, frequent exacerbations, and believe she would benefit from nocturnal and daytime as needed. External ventilation from the machine such as Trilogy -consult to case management was
placed.
The patient has been evaluated at [facility] and reportedly was not a 'valve candidate' and it is unclear whether she was ever sent for transplant evaluation, which I would recommend if she is a candidate
DVT prophylaxis-on Lovenox.
Dr. Guevara reviewed with at the bedside , as well as spoke to daughter for a total of 50 minutes on 2 separate occasions updating patient's condition, follow-up needs, prognosis, and treatment plan.
The patient would like to follow-up locally as well.-Potential initiation of Dupixent as well.
She has an appointment with ENT in January to rule out vocal cord dysfunction.
Bedside spirometry will be obtained to assess flow-volume loop
Data:
CXR 12/2024: No radiographic evidence of acute cardiopulmonary abnormality.
ECHO 11/2024: Low normal LV systolic function with left ventricular ejection fraction
estimated by Juarez's method 50%
Normal left ventricular wall thickness
Normal diastolic function.
Normal atrial dimensions
Aortic valve poorly visualized with mildly thickened leaflets consistent with
aortic sclerosis without stenosis. No significant aortic insufficiency.
Trace mitral and tricuspid insufficiency
Unable to estimate right heart pressures due to paucity of TR jet.
No pericardial effusion
No prior study available for comparison
Subjective Data
-
Date of Service:
Date of Service: December 26, 2024
Chief Complaint: Pulmonary Follow Up and Dyspnea Follow Up
Subjective:
Still has significant shortness of breath with exertion, no chest pain, minimal productive cough, some mild wheezing, chest pain or abdominal pain
Review of Systems
General: Other (per HPI)
Objective Data
Data Reviewed
Vital Signs / I&O:
Vital Signs
Temp Pulse Resp BP Pulse Ox
98.5 F 98 20 109/64 98
12/26/24 07:00 12/26/24 07:49 12/26/24 07:49 12/26/24 07:00 12/26/24 07:49
Intake and Output
12/25/24 12/26/24 12/27/24
06:59 06:59 06:59
Intake Total 960 / 960 1860 / 1860
Balance 960 / 960 1860 / 1860
SaO2: 98
Nasal Cannula flow liters per minute: 4
Physical Exam
General: Respiratory Distress (n) and Comfortable
HEENT: Normocephalic and Anicteric
Cardiovascular: Regular Rhythm
Respiratory: Wheeze and Other ( no stridor)
GI: Soft, Non Distended and Non Tender
Neurology: Awake, Alert and No Motor Deficits
Skin: Warm, Good Color, Cyanosis (n), Jaundice (n) and Rash (n)
Labs/Micro/Reports
Lab Data
12/26/24 08:00
12/26/24 08:00
Microbiology
12/23/24 15:06 Nasal Swab Influenza Types A & B (WARNER) - Final
Negative for Influenza A & B, NAAT
Negative results must be combined with clinical observations
and patient history.
Nucleic Acid Amplification test (NAAT)performed on the
[employer] platform.
--- NOTE | 2024-12-26 10:30 | W.PN.HOSP.TC ---
Today's Communication/Plan
-
see A/P
Assessment / Plan
Assessment / Plan
74F PMH COPD, chronic steroids 4L baseline, Vocal Cord Dysfunction, NEREYDA, here with exertional dyspnea, increased oxygen requirement, suspect COPD exacerbation vs progression end stage COPD.
A/P:
# SOB with Acute on chronic hypoxic respiratory failure secondary to COPD exacerbation
CXR appreciated: No radiographic evidence of acute cardiopulmonary abnormality.
Cont current Decadron at 4 mg Q12H
Cont DuoNebs ATC and PRN
Weaned oxygen back to baseline at 4L NC
Continue chronic azithromycin 250 mg MWF
Cont Acapella device
Appreciate Pulm input
VBG showed chronic hypercapnia
CT PE negative for PE, Suspected changes of emphysema. Overall peripheral prominent size of pulmonary interstitial markings widespread bilaterally at least in part could be chronic. Acute interstitial pneumonitis cannot be excluded. No focal
parenchymal consolidation, pneumothorax or pleural effusion.
noted recent echo 11/14 was largely unrevealing: EF 50%, Normal left ventricular wall thickness, Normal diastolic function.
Procal negative
Started trial of BIPAP 10/5 HS, check with CM if this can be arranged for discharge
# Chronic Anemia
# Iron deficiency anemia
Patient reports she is currently on iron infusion
IV iron PRN here
iron studies unreliable with recent Iron infusion [employer] (earliest iron studies should be repeated is a month from the last IV iron infusion)
# Anxiety/depression
Sertraline resumed
# Rheumatoid arthritis
On Actemra, chronic daily prednisone
Continue leflunomide
# Essential Hypertension
Home Torsemide resumed with holding parameters
Hold Spironolactone (patient takes prn) given soft BP
# Osteoporosis
Continue alendronate
# Herpes prophylaxis
Continue valacyclovir
# paradoxical vocal cord dysfunction
scheduled for ENT eval in one month
# Former smoker
CODE STATUS full code
DVT prophylaxis Lovenox
DW Pulm
DW at bedside. DW daughter on the phone. Updated clinical status with family. Answered all questions.
total time spent 51 min
Anticipated Discharge: 24 - 48 hours
Subjective/Interval History
-
Date of Service: December 26, 2024
Objective Data
-
Labs:
Laboratory Results
12/26/24
08:00
WBC 8.6
Hgb 8.4 L
Hct 31.6 L
Plt Count 250
Sodium 141
Potassium 4.9
Chloride 98
Carbon Dioxide 43 H
BUN 15
Creatinine 0.6
Glucose 100 H
Calcium 9.0
Vital Signs:
Vital Signs
Temp Pulse Resp BP Pulse Ox
36.9 C 98 20 109/64 98
12/26/24 07:00 12/26/24 07:49 12/26/24 07:49 12/26/24 07:00 12/26/24 10:24
I&O
12/25/24 12/26/24 12/27/24
06:59 06:59 06:59
Intake Total 960 / 960 1859
Balance 960 / 960 1859
Review of Systems
-
History Source: Patient
Respiratory: Reports Trouble Breathing
Physical Exam
-
General: Well Developed, Well Nourished, Comfortable and Respiratory Distress (chronic)
HEENT: Oxygen (baseline 4L NC )
Respiratory: Clear to Auscultation, Wheezes (possibly associated with stridor from paradoxical vocal cord dysfunction) and Non Labored Respirations
Cardiac: Regular Rhythm and S1/S2
GI: Soft, Nontender, Nondistended and Normal Bowel Sounds
Neuro: Awake, Alert and Oriented
Psych: Calm and Intact Judgement/Insight
Data Reviewed
-
CT Scan: Report Reviewed by me, Discussed with Patient and Discussed with Family
Labs: Labs Reviewed by me
[2024-12-26 10:39] VITALS: BP 119/70; PULSE 104; O2SAT 94
[2024-12-26 15:00] VITALS: BP 113/55
[2024-12-26] MEDS: LOVENOX 40 MG SC (17:20)
--- NOTE | 2024-12-26 18:23 | CM ---
Spoke with patient and dgt Aiden in room [phone] .
PT indicated VN .
Offered VN . Dgt said VN PCP DR Maldonado. Dahlia Mejía [facility] liaison notified.
Consult received for TRilogy external external ventilation . Spoke with Yesenia at [facility] .Clinical faxed to [phone].
Will need more documentation from MD sent tomorrow regarding Trilogy.
PLAN Home with [facility]
[2024-12-26] MEDS: VALTREX 500 MG PO (19:57)
[2024-12-26] MEDS: ZOLOFT 25 MG PO (19:57)
[2024-12-26] MEDS: LIDOCAINE 4% PATCH 1 PATCH TOPICAL (22:41)
--- NOTE | 2024-12-26 23:29 | PTCARENOTE ---
Addendum entered by Christine Soria RN 12/27/24 02:31:
Patient's HR to SR 80-90s with PACs
Original Note:
patient HR-170s in Afib, confirmed with EKG. no h/o Afib. Bp- 123/69. AMANDA Douglas made aware
[2024-12-26 23:36] VITALS: BP 123/69
--- NOTE | 2024-12-26 23:36 | W.PN.UPDATE ---
Update Note
Progress Note Update
~23:30 Pt HR jumped into the 170's, BP 123/69, EKG showed afib w/RVR, unsure if pt has hx of afib. Patient states she feels no palpitations, SOB, chest discomfort, nausea, headache or dizziness. Patient does report she is feeling anxious about going
on the bi-pap tonight. Patient placed of telemetry. Patient did not convert on her own. Lopressor 5 mg IV x 1 dose given, converted back to NSR, HR in the 90's. Pt stated she does see a Hub Cutter, Dr. Gonsalez at [facility]. She does not know
if she has a history of afib.�Cardiology consult placed with JEANNETTE, Dr. Kee.
[2024-12-26] MEDS: LOPRESSOR 5 MG IV (23:49)
[2024-12-27] VITALS (9 sets, daily range): BP systolic 106–137; BP diastolic 57–83; PULSE 2–95
[2024-12-27] MEDS: DECADRON 4 MG IV ×2 (06:16→17:24)
[2024-12-27] MEDS: DUONEB 3 ML INH ×4 (07:29→19:16)
[2024-12-27] MEDS: PULMICORT 0.5 MG INH ×2 (07:32→19:16)
[2024-12-27 08:08] LABS: Hematocrit 32.8 % (37.0-47.0); Hemoglobin 8.7 g/dL (12.0-16.0); Mean Corp Hgb Conc. 26.5 g/dL (33.0-37.0); Mean Corpuscular Volume 85.2 fL (81.0-99.0); Platelet Count 238 10^3/uL (130-400); Red Cell Dist. Width 18.1 % (11.5-14.5)
[2024-12-27] MEDS: MAGNESIUM OXIDE 250 MG PO (08:08)
[2024-12-27] MEDS: VITAMIN D3 (cholecalciferol) 25 MCG PO (08:08)
[2024-12-27] MEDS: VITAMIN C 1000 MG PO (08:08)
[2024-12-27] MEDS: RESTASIS 0.05% OPHTHALMIC EMULSION 1 DROPS BOTH EYES ×2 (08:08→19:49)
[2024-12-27] MEDS: AZULFIDINE 500 MG PO ×2 (08:08→19:49)
[2024-12-27 08:24] LABS: Blood Urea Nitrogen 17 mg/dl (7-17); Calcium 8.9 mg/dl (8.4-10.2); Chloride 96 mmol/L (98-107); Estimated Creatinine Clearance 57 ml/min; Glucose 87 mg/dl (70-99); Magnesium 2.2 mg/dl (1.6-2.3); Potassium 4.8 mmol/L (3.5-5.1); Sodium 142 mmol/L (135-145); eGFR > 60.00
[2024-12-27 08:44] LABS: Carbon Dioxide 44 mmol/L (22-30)
--- NOTE | 2024-12-27 10:18 | W.PN.HOSP.TC ---
Today's Communication/Plan
-
see A/P
Assessment / Plan
Assessment / Plan
74F PMH COPD, chronic steroids 4L baseline, Vocal Cord Dysfunction, NEREYDA, here with exertional dyspnea, increased oxygen requirement, suspect COPD exacerbation vs progression end stage COPD.
A/P:
# SOB with Acute on chronic hypoxic respiratory failure secondary to COPD exacerbation
CXR appreciated: No radiographic evidence of acute cardiopulmonary abnormality.
Cont current Decadron at 4 mg Q12H
Cont DuoNebs ATC and PRN
Weaned oxygen back to baseline at 4L NC
Continue chronic azithromycin 250 mg MWF
Cont Acapella device
Appreciate Pulm input
VBG showed chronic hypercapnia
CT PE negative for PE, Suspected changes of emphysema. Overall peripheral prominent size of pulmonary interstitial markings widespread bilaterally at least in part could be chronic. Acute interstitial pneumonitis cannot be excluded. No focal
parenchymal consolidation, pneumothorax or pleural effusion.
noted recent echo 11/14 was largely unrevealing: EF 50%, Normal left ventricular wall thickness, Normal diastolic function.
Procal negative
Started trial of BIPAP 10/ HS, Pulm assisting outpt Trilogy, CM facilitating
# Paroxysmal A fib overnight 12/26
Spontaneously converted back to NSR after IV Lopressor x1
Card CS placed
# Chronic Anemia
# Iron deficiency anemia
Patient reports she is currently on iron infusion
IV iron PRN here
iron studies unreliable with recent Iron infusion [facility] [employer] (earliest iron studies should be repeated is a month from the last IV iron infusion)
# Anxiety/depression
Sertraline resumed
# Rheumatoid arthritis
On Actemra, chronic daily prednisone
Continue leflunomide
# Essential Hypertension
Home Torsemide resumed with holding parameters
Hold Spironolactone (patient takes prn) given soft BP
# Osteoporosis
Continue alendronate
# Herpes prophylaxis
Continue valacyclovir
# paradoxical vocal cord dysfunction
scheduled for ENT eval in one month
# Former smoker
CODE STATUS full code
DVT prophylaxis Lovenox
DW Pulm
DW daughter on the phone. Updated clinical status with family. Answered all questions.
total time spent 51 min
Anticipated Discharge: Within 24 hours
Subjective/Interval History
-
Date of Service: December 27, 2024
Objective Data
-
Labs:
Laboratory Results
12/27/24
05:51
WBC 9.5
Hgb 8.7 L
Hct 32.8 L
Plt Count 238
Sodium 142
Potassium 4.8
Chloride 96 L
Carbon Dioxide 44 H
BUN 17
Creatinine 0.5 L
Glucose 87
Calcium 8.9
Vital Signs:
Vital Signs
Temp Pulse Resp BP Pulse Ox
36.7 C 71 16 113/64 94
12/27/24 07:00 12/27/24 07:33 12/27/24 07:33 12/27/24 07:00 12/27/24 07:33
I&O
12/26/24 12/27/24 12/28/24
06:59 06:59 06:59
Intake Total 1859 480 / 480
Balance 1859 480 / 480
Review of Systems
-
History Source: Patient
Respiratory: Reports Trouble Breathing (chronic)
Physical Exam
-
General: Well Developed, Well Nourished, Comfortable and Respiratory Distress (chronic)
HEENT: Oxygen (baseline 4L NC )
Respiratory: Clear to Auscultation, Wheezes (possibly associated with stridor from paradoxical vocal cord dysfunction) and Non Labored Respirations
Cardiac: Regular Rhythm and S1/S2
GI: Soft, Nontender, Nondistended and Normal Bowel Sounds
Neuro: Awake, Alert and Oriented
Psych: Calm and Intact Judgement/Insight
Data Reviewed
-
CT Scan: Report Reviewed by me, Discussed with Patient and Discussed with Family
Labs: Labs Reviewed by me
--- NOTE | 2024-12-27 10:39 | W.PN.PUL.V3 ---
Today's Communication / Plan
-
Wean oxygen
Increase activity
Cardiology evaluation for brief atrial fibrillation
Consider Xopenex instead of albuterol
Attempting to obtain noninvasive ventilation as an outpatient
Patient would like to follow-up locally-Will attempt to facilitate
Consider dupixent in the outpatient setting
Assessment
-
Other medical diagnoses:
-Rheumatoid arthritis
-Chronic anemia
-Hypertension
-Anxiety
-Osteoporosis
#1. Acute on chronic hypoxic respiratory failure with acute COPD exacerbation. (Steroids and O2 dependent COPD, FEV1 22%)
- Followed by Dr. Shi at [facility]. At baseline patient uses Ensifentrine/Ohtyvare, supplemental oxygen, prednisone 10 mg daily, azithromycin Thursday, budesonide nebulized, Brovana and nebulized, in addition patient uses either
Combivent inhaler or Spiriva.
- FEV1 is 22% postbronchodilator, consistent with very severe COPD
- Slowly improving wheezing, no obvious infiltrate noted on chest x-ray
- CT suggestive of emphysema, no PE or infiltrates noted
- Agree with current treatment of azithromycin Thursday, DuoNeb scheduled along with budesonide and IV steroids.
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 Eosinophil count noted to be around 100. If she continues to do poorly, may consider Dupixent subcu injections as outpatient considering her steroid
dependent COPD with significant symptoms and hospitalizations despite maximal inhaled therapy.
- Influenza A, B, COVID-19 screen negative. WBC count normal, eosinophil count 100, afebrile. Chronically elevated serum bicarb. BNP 514, troponin 0.013
Patient would like to follow-up with pulmonary locally-we will leave instructions for [id number] are interested in starting dupixent
At time of discharge change Decadron to prednisone 50 mg daily for 4 days and then 40 mg daily for 4 days and then 30 mg daily for 4 days, then 20 mg daily for 4 days and then 10 mg daily until seen by pulmonary
#2. Chronic hypercapnic respiratory failure.
- VBG 7. consistent with compensated hypercapnia
- With her advanced COPD and frequent exacerbations, she will likely benefit from nightly positive pressure ventilation/Trilogy. Discussed with patient's daughter and recommended to discuss with Dr. Shi.
Patient has significant chronic hypercapnic respiratory failure, frequent exacerbations, and believe she would benefit from nocturnal and daytime as needed. External ventilation from the machine such as Trilogy -consult to case management was
placed.
The patient has been evaluated at [facility] and reportedly was not a 'valve candidate' and it is unclear whether she was ever sent for transplant evaluation, which I would recommend if she is a candidate
New onset atrial fibrillation noted-spontaneously converted back to sinus rhythm
Cardiology consultation pending
DVT prophylaxis-on Lovenox.
Brief new onset atrial fibrillation
Dr. Guevara reviewed with at the bedside , as well as spoke to daughter for a total of 50 minutes on 2 separate occasions updating patient's condition on 12/26/2024, follow-up needs, prognosis, and treatment plan.
Dr. Guevara reviewed with daughter over the phone for 20 minutes on 12/27/2024 as well-I have discussed end-stage nature of her mother's disease and that she would be a hospice candidate with high chance of repetitive rehospitalization's due to
end-stage nature of her COPD
The patient would like to follow-up locally as well.-Potential initiation of Dupixent as well.
She has an appointment with ENT in January to rule out vocal cord dysfunction.
Bedside spirometry reveals very severe obstruction and patient and family have been told she has '19% expected lung function'
Patient has end-stage COPD with multiple emergency room and hospitalizations with chief complaint of shortness of breath and respiratory failure. The patient has a pCO2 of greater than 60 on 4 L oxygen and needs continuous oxygen supplementation.
Patient reports shortness of breath with minimal activity and reports significant reduction in activities of daily living. Due to the patient's COPD and hypoventilation patient is at risk of worsening chronic respiratory failure. I have considered
bilevel, bilevel ST and bilevel VAPS therapy and they have been ruled out due to the patient's worsening condition. The patient now requires a unique mode of ventilation not offered by less costly options. The patient requires a device that will
not fail in the event of power failure and also portable for mobility within the home when needed. Due to the patient's worsening condition I am prescribing noninvasive ventilation therapy to decrease the chance of continued unplanned expensive
medical encounters including physician office visits, emergency/urgent care treatments and hospital readmissions.
Data:
CXR 12/2024: No radiographic evidence of acute cardiopulmonary abnormality.
ECHO 11/2024: Low normal LV systolic function with left ventricular ejection fraction
estimated by Juarez's method 50%
Normal left ventricular wall thickness
Normal diastolic function.
Normal atrial dimensions
Aortic valve poorly visualized with mildly thickened leaflets consistent with
aortic sclerosis without stenosis. No significant aortic insufficiency.
Trace mitral and tricuspid insufficiency
Unable to estimate right heart pressures due to paucity of TR jet.
No pericardial effusion
No prior study available for comparison
Subjective Data
-
Date of Service:
Date of Service: December 27, 2024
Chief Complaint: Pulmonary Follow Up and Dyspnea Follow Up
Subjective:
Still quite short of breath with minimal exertion, nonproductive cough, no chest pain, urgency, abdominal pain or leg swelling
Review of Systems
General: Other (Per HPI)
Objective Data
Data Reviewed
Vital Signs / I&O:
Vital Signs
Temp Pulse Resp BP Pulse Ox
98.1 F 71 16 113/64 94
12/27/24 07:00 12/27/24 07:33 12/27/24 07:33 12/27/24 07:00 12/27/24 07:33
Intake and Output
12/26/24 12/27/24 12/28/24
06:59 06:59 06:59
Intake Total 1860 / 1860 480 / 480
Balance 1860 / 1860 480 / 480
SaO2: 94
Nasal Cannula flow liters per minute: 4
Physical Exam
General: Respiratory Distress (n) and Comfortable
HEENT: Normocephalic and Anicteric
Cardiovascular: Regular Rhythm
Respiratory: Wheeze and Other ( no stridor)
GI: Soft, Non Distended and Non Tender
Neurology: Awake, Alert and No Motor Deficits
Skin: Warm, Good Color, Cyanosis (n), Jaundice (n) and Rash (n)
Labs/Micro/Reports
Lab Data
12/27/24 05:51
12/27/24 05:51
--- NOTE | 2024-12-27 11:32 | CON.CAR ---
Addendum entered and electronically signed by Elizabeth Kee DO 12/27/24 17:36:
I saw and examined the patient.
The [employer]'s note was reviewed and I agree with the note.
Comment: Seen and examined with her at bedside. She also called her daughter Paul who was present on the phone. Lucero is a 74-year-old female With a history of end-stage COPD on chronic 4 L nasal cannula oxygen followed by Dr. Shi at
[facility]. She also has rheumatoid arthritis, vocal cord dysfunction, chronic anemia, osteoarthritis, hypertension and migraines who presents to emergency department with worsening shortness of breath and found to have acute hypoxic respiratory
failure with pulse oximetry into the 70s at home. Patient was noted to be wheezing on arrival with COPD exacerbation. proBNP 514 with negative troponin. Patient being followed closely by pulmonary with aggressive treatment of COPD including IV
steroids, nebulizers, azithromycin. Patient developed tachycardia and rapid heart rate on the late evening of 12/26/2024 EKG showed atrial fibrillation/flutter with rapid ventricular response. She was given IV Lopressor 5 mg with spontaneous
conversion back to sinus rhythm. Patient follows with Dr. Angel Gonsalez of [facility] cardiology for her routine cardiology care. She has no history of known coronary artery disease/myocardial infarct, cardiomyopathy, atrial fibrillation or valvular
heart disease. Per review of his most recent office visit note from November 2024 patient does have a history of chronic tachycardia. Her does have a history of paroxysmal atrial fibrillation managed by my colleague Dr. Hensley
General: Frail 74-year-old female with nasal cannula O2 sitting out of bed to chair
Heart: Regular with ectopy. Positive S1-S2. No murmurs.
Lungs: Decreased breath sounds bilaterally with coarse rhonchi. No wheezes.
Abd: Positive BS, NT/ND, neg rebound/rigidity/guarding
Ext: +1 chronic edema b/l
Neuro: nonfocal
Plan:
74-year-old female with end-stage COPD on home O2 with atrial tachyarrhythmias
- Patient had an episode of brief rapid atrial fibrillation/flutter with spontaneous conversion to sinus rhythm with IV Lopressor.
- Review of telemetry has noted sinus tachycardia, PAT versus MAT and sinus rhythm with PACs and PVCs
- We discussed diagnosis, possible symptoms, management options. We also reviewed stroke risk with atrial fibrillation and stroke risk reduction.
- Will start diltiazem CD1 120 mg once daily
- We discussed stroke risk and risk/benefit of oral anticoagulation. Will hold off starting oral anticoagulation at this time given brief episode with with higher bleed risk.
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 Pending atrial fibrillation burden, can consider initiation of oral anticoagulation.
-Check TSH
-Patient, and daughter are in agreement
Original Note:
Consultation
Consultation Request
Date/Time Consultation Requested: 12/27/2024
Date/Time Consultation Performed: 12/27/2024
Requesting Provider: Dr. Martinez
Performing Provider: Miesha Schumacher PA-C for Dr. Elizabeth Kee
Reason for Consultation: Atrial fibrillation/flutter
Medical History
-
History of Present Illness:
Patient is a 74-year-old female with history of tobacco abuse and severe COPD chronically on steroid, antibiotic and home oxygen, rheumatoid arthritis, vocal cord dysfunction, chronic anemia, osteoarthritis, hypertension and migraines who presents
to emergency department with worsening shortness of breath and found to have acute hypoxic respiratory failure with pulse oximetry into the 70s at home. Patient was noted to be wheezing on arrival with COPD exacerbation. proBNP 514 with negative
troponin. Patient being followed closely by pulmonary with aggressive treatment of COPD including IV steroids, nebulizers, azithromycin. Patient developed tachycardia and rapid heart rate on the late evening of 12/26/2024 EKG showed atrial
fibrillation/flutter with rapid ventricular response. Patient admitted to being very anxious at the time. She was given IV Lopressor 5 mg with spontaneous conversion back to sinus rhythm. Cardiology being asked to see patient given atrial
fibrillation. Patient does follow with Dr. Angel Gonsalez of [facility] cardiology for her routine cardiology care. Per review of his most recent office visit note from November 2024 patient does have a history of chronic tachycardia.
Patient seen with at bedside. Patient reports she is feeling better. She has chronic shortness of breath and wheezing. She denies chest pain, palpitations, dizziness, lightheadedness. She reports she is eager to go home
PMH:
End-stage COPD on on chronic steroids and chronic home oxygen/O2 to dependent
Persistent tachycardia
Rheumatoid arthritis
Chronic anemia
Vocal cord dysfunction
Migraines
Chronic lymphedema
Hypertension
Anxiety
Osteoporosis
Past Medical History
Past Medical History: Other (See HPI)
Past Surgical History: , Gynecological (Hysterectomy), Orthopedic (Right wrist surgery, left tibial fracture surgery) and Other (Cataract extraction)
Social History
Tobacco: Former Smoker (Quit 2005)
Alcohol: None
Drug: None
Personal:
Living: With Family
Family History
Family History: Reviewed & Not Pertinent
Allergies / Home Medications
Allergy/AdvReac Type Severity Reaction Status Date / Time
mannitol (From Reclast) Allergy Swelling Verified 12/23/24 12:28
water for injection,sterile Allergy Swelling Verified 12/23/24 12:28
(From Reclast)
zoledronic acid (From Allergy Swelling Verified 12/23/24 12:28
Reclast)
�Medication �Instructions �Recorded �Confirmed �Type
alendronate 70 mg tablet 70 mg PO MARTELL osteoporosis 06/27/23 12/23/24 History
arformoterol 15 mcg/2 mL solution 2 ml inhalation R BID 06/27/23 12/23/24 History
for nebulization (Brovana)
azithromycin 250 mg tablet 250 mg PO MOWEFR@1999 copd 06/27/23 12/23/24 History
budesonide 0.5 mg/2 mL suspension 0.5 mg inhalation R BID 06/27/23 12/23/24 History
for nebulization
cyclosporine 0.05 % eye drops in a 1 drp BOTH EYES BID dry eyes 06/27/23 12/23/24 History
dropperette (Restasis)
ipratropium 0.5 mg-albuterol 3 mg 3 ml inhalation R QID 06/27/23 12/23/24 History
(2.5 mg base)/3 mL nebulization
soln
ipratropium 20 mcg-albuterol 100 1 puff inhalation R QIDPRN PRN sob 06/27/23 12/23/24 History
mcg/actuation mist for inhalation
(Combivent Respimat)
leflunomide 10 mg tablet 20 mg PO HS rheumatoid arthritis 06/27/23 12/23/24 History
lidocaine 4 % topical patch 1 patch topical DAILYPRN PRN right 06/27/23 12/23/24 History
knee
theophylline 200 mg 200 mg PO HS copd 06/27/23 12/23/24 History
capsule,extended release 24 hr
(Eugene-24)
tiotropium bromide 2.5 2 puff inhalation R HS copd 06/27/23 12/23/24 History
mcg/actuation mist for inhalation
(Spiriva Respimat)
tocilizumab 400 mg/20 mL (20 400 mg IV Q4W rheumatoid arthritis 06/27/23 12/23/24 History
mg/mL) intravenous solution
(Actemra)
valacyclovir 500 mg tablet 500 mg PO HS viral infection 06/27/23 12/23/24 History
cholecalciferol (vitamin D3) 25 25 mcg PO MOTUWETHFRSA Supplement 07/16/23 12/23/24 History
mcg (1,000 unit) tablet (Vitamin
D3)
spironolactone 25 mg tablet 25 mg PO DAILYPRN PRN blood 07/16/23 12/23/24 History
pressure-when she remembers
therapeutic multivitamin 1 tab PO MOWEFR@2000 Supplement 07/16/23 12/23/24 History
torsemide 20 mg tablet 20 mg PO QPM 07/16/23 12/23/24 History
albuterol sulfate 90 mcg/actuation 2 puff inhalation R Q4HPRN PRN sob 11/13/24 12/23/24 History
aerosol inhaler
ascorbic acid (vitamin C) 1,000 mg 1,000 mg PO QPM 11/13/24 12/23/24 History
tablet (Vitamin C)
cyanocobalamin (vitamin B-12) 50 50 mcg PO MOWEFR@2000 11/13/24 12/23/24 History
mcg tablet
ensifentrine 3 mg/2.5 mL 2.5 ml inhalation R BID 11/13/24 12/23/24 History
suspension for nebulization
(Ohtuvayre)
magnesium oxide 400 mg PO QPM ##0 11/13/24 12/23/24 History
methylcellulose (laxative) 500 mg 1,000 mg PO QPM 11/13/24 12/23/24 History
tablet (Citrucel)
potassium chloride 10 mEq 10 meq PO DAILYPRN PRN 11/13/24 12/23/24 History
tablet,extended release supplement-when she remembers
prednisone 5 mg tablet 5 mg PO BID rheumatoid arthritis 11/13/24 12/23/24 History
sulfasalazine 500 mg tablet 500 mg PO BID 11/13/24 12/23/24 History
acetaminophen 650 mg 650 mg PO [id number] PRN headaches 12/23/24 12/23/24 History
tablet,extended release
budesonide 160 mcg-glycopyr 9 2 inh inhalation R BID 12/23/24 12/23/24 History
mcg-formot 4.8 mcg/actuation HFA
inhaler (Breztri Aerosphere)
rimegepant 75 mg disintegrating 75 mg PO DAILYPRN PRN mirgraines 12/23/24 12/23/24 History
tablet (Nurtec ODT)
sertraline 25 mg tablet 25 mg PO HS 12/23/24 12/23/24 History
Review of Systems
-
History Source: Patient
All other systems: Negative unless noted
Physical Exam
Vital Signs
Temp Pulse Resp BP Pulse Ox
98.1 F 71 16 113/64 94
12/27/24 07:00 12/27/24 07:33 12/27/24 07:33 12/27/24 07:00 12/27/24 10:39
GEN: No distress, awake, Ox3, sitting in chair on oxygen
HEENT: supple, anicteric, mmm
LUNGS: Diffuse bilateral wheezing, reduced breath sounds bilaterally, on oxygen
CV: Reg, tachycardic, S1/S2, no murmur, rub or gallop
ABD: soft, BS+, NT/ND
EXT: Trace bilateral edema
NEURO: Gross non-focal
SKIN: warm, dry, pink, thin skin with ecchymosis on arms
Lab Results
12/27/24 05:51
12/27/24 05:51
Troponin I 0.013 ng/ml 12/23/24 12:42
Qqf-H-Ugnhhryxlbj Pept 514 pg/ml 12/23/24 12:42
Impression / Plan
-
PCP: Odalis Maldonado
Front Line Leader: Dr. Gonsalez at [facility] Cardiology
inspection and testing supervisor: Dr. Shi, [place]
Impression:
Presented 12/23/2024 with worsening shortness of breath and hypoxia
Acute hypoxic respiratory failure
COPD, exacerbation
Atrial fibrillation/flutter with rapid ventricular response
Advanced stage COPD on on chronic steroids and chronic home oxygen/O2 to dependent
Persistent tachycardia
Rheumatoid arthritis
Chronic anemia
Vocal cord dysfunction
Migraines
Chronic lymphedema
Hypertension
Anxiety
Osteoporosis
Echo 11/14/2024: EF 50%. No significant valvular disease.
Plan:
- Presented 12/23/2024 with worsening shortness of breath and hypoxia with pulse oximetry into the 70s.
- Acute hypoxic respiratory failure secondary to COPD exacerbation. Being followed closely by pulmonary at [place]. Currently getting IV steroids, DuoNebs and chronic antibiotics.
- Paroxysmal atrial fibrillation on late evening of 12/26/2024. Patient was given 5 mg IV Lopressor with spontaneous conversion to sinus rhythm. This appears to be new diagnosis although per review of [facility] records patient does have history of
persistent tachycardia which is likely multifactorial given her advanced COPD, chronic use of steroids and chronic anemia.
- Would avoid albuterol and utilize Xopenex if available.
- Add diltiazem 120 mg daily. Would avoid beta-tom given ongoing wheezing and advanced/end-stage COPD.
- Given new diagnosis of paroxysmal A-fib/flutter discussed that she is at increased risk of stroke. Discussed risks and benefits of OAC. Her Afib/flutter was very brief. Unclear how she would tolerate given she has history of chronic steroid use,
chronic anemia and advanced COPD. Patient would like to think about it. Consider having patient follow-up with her outpatient physician ophthalmologist for outpatient monitor to reassess her Afib/flutter burden with addition of Cardizem.
- Echo on recent admission in November 2024 demonstrated low normal ejection fraction with no significant valvular disease and normal RV size and function
-[facility] cardiology records reviewed
Data Reviewed
-
EKG: Report Reviewed by me, Discussed with Physician, Discussed with Nurse and Discussed with Patient
Radiology: Report Reviewed by me, Discussed with Physician, Discussed with Nurse and Discussed with Patient
Medical Tests (Nuc Med, Echo etc): Report Reviewed by me, Discussed with Physician and Discussed with Patient
Labs: Labs Reviewed by me, Discussed with Physician, Discussed with Nurse and Discussed with Family
Old Records: Reviewed
--- NOTE | 2024-12-27 12:55 | VNURNOTE ---
Attempted to speak with patient, she was being seen by Dr. She did ask that her daughter be called.
Called daughter Paul- she was unable to speak, requested a phone call tomorrow after 1000. She is agreeable to PM [facility].
PM-[facility] referral accepted in [facility].
NIV at HS ordered. Rx, note faxed to [facility] (fax # [phone]). Yesenia confirmed receipt. Per Yesenia, cannot be delivered until Weds. Pt must be DC'ed before 1400 so NIV can be set up in home. NIRAV Dillon aware.
Patient already has home 02 w/ [employer].
[2024-12-27] MEDS: CARDIZEM CD 120 MG PO (14:43)
--- NOTE | 2024-12-27 16:54 | CM ---
Spoke with dgt Aiden explained [facility] set up with [facility] and could be started in her home tomorrow if dc before 2 pm. MD aware. Daughter Aiden agreed with this plan.
All needed paper work faxed to Yesenia at [facility].
Dahlia Mejía [facility] liaison set up [facility]
Oxygen 4 liter Pox 98%.
PLAN Home with [facility] DME with [employer]
[2024-12-27] MEDS: LOVENOX 40 MG SC (17:24)
[2024-12-27] MEDS: VALTREX 500 MG PO (19:49)
[2024-12-27] MEDS: LIDOCAINE 4% PATCH 1 PATCH TOPICAL (22:40)
[2024-12-27] MEDS: ZOLOFT 25 MG PO (23:05)
[2024-12-28 00:02] VITALS: PULSE 2
--- NOTE | 2024-12-28 02:49 | DOWNTIME ---
There was a [employer] Client Forensic Identification Specialist Downtime on 12/28/2024 from 0100 to 12/28/2024 at 0235. Downtime documentation of patient's care, including medication administrations, has been reconciled in the electronic record per guidelines. Refer to the
patient's paper chart under the miscellaneous tab to see printed paper medication records and downtime forms.
[2024-12-28 03:05] VITALS: BP 104/83
[2024-12-28 03:13] VITALS: PULSE 2
[2024-12-28] MEDS: DECADRON 4 MG IV (06:09)
[2024-12-28 07:00] VITALS: BP 127/68
[2024-12-28] MEDS: PULMICORT 0.5 MG INH (07:29)
[2024-12-28] MEDS: DUONEB 3 ML INH ×2 (07:29→11:20)
--- NOTE | 2024-12-28 08:29 | W.PN.HOSP.TC ---
Today's Communication/Plan
-
DC planning
Assessment / Plan
Assessment / Plan
74F PMH COPD, chronic steroids 4L baseline, Vocal Cord Dysfunction, NEREYDA, here with exertional dyspnea, increased oxygen requirement, suspect COPD exacerbation vs progression end stage COPD.
A/P:
# SOB with Acute on chronic hypoxic respiratory failure secondary to COPD exacerbation
CXR appreciated: No radiographic evidence of acute cardiopulmonary abnormality.
Cont current Decadron at 4 mg Q12H with plan to transition to PO prednisone back to home dose (5 mg BID) on discharge
Cont DuoNebs ATC and PRN
Weaned oxygen back to baseline at 4L NC
Continue chronic azithromycin 250 mg MWF
Cont Acapella device
Appreciate Pulm input
VBG showed chronic hypercapnia
CT PE negative for PE, Suspected changes of emphysema. Overall peripheral prominent size of pulmonary interstitial markings widespread bilaterally at least in part could be chronic. Acute interstitial pneumonitis cannot be excluded. No focal
parenchymal consolidation, pneumothorax or pleural effusion.
noted recent echo 11/14 was largely unrevealing: EF 50%, Normal left ventricular wall thickness, Normal diastolic function.
Procal negative
Started trial of BIPAP 02/12 HS, Pulm assisting outpt [facility], CM facilitating
# Paroxysmal A fib overnight 12/26
Spontaneously converted back to NSR after IV Lopressor x1
started diltiazem CD1 120 mg once daily
Card on board
# Chronic Anemia
# Iron deficiency anemia
Patient reports she is currently on iron infusion
IV iron PRN here
iron studies unreliable with recent Iron infusion SUGAR CANE GROWER (earliest iron studies should be repeated is a month from the last IV iron infusion)
# Anxiety/depression
Sertraline resumed
# Rheumatoid arthritis
On Actemra, chronic daily prednisone
Continue leflunomide
# Essential Hypertension
Home Torsemide resumed with holding parameters
Hold Spironolactone (patient takes prn) given soft BP
# Osteoporosis
Continue alendronate
# Herpes prophylaxis
Continue valacyclovir
# paradoxical vocal cord dysfunction
scheduled for ENT eval in one month
# Former smoker
CODE STATUS full code
DVT prophylaxis Lovenox
DW Pulm
DW daughter on the phone. Updated clinical status with family. Answered all questions.
Anticipated Discharge: Today
Subjective/Interval History
-
Date of Service: December 28, 2024
Objective Data
-
Labs:
Laboratory Results
12/28/24
08:25
WBC Pending
Hgb Pending
Hct Pending
Plt Count Pending
Sodium Pending
Potassium Pending
Chloride Pending
Carbon Dioxide Pending
BUN Pending
Creatinine Pending
Glucose Pending
Calcium Pending
Vital Signs:
Vital Signs
Temp Pulse Resp BP Pulse Ox
36.8 C 89 16 104/83 100
12/28/24 03:05 12/28/24 07:39 12/28/24 07:39 12/28/24 03:05 12/28/24 07:39
I&O
12/27/24 12/28/24 12/29/24
06:59 06:59 06:59
Intake Total 480 / 480 800 / 800
Balance 480 / 480 800 / 800
Review of Systems
-
History Source: Patient
Respiratory: Reports Trouble Breathing (chronic)
Physical Exam
-
General: Well Developed, Well Nourished, Comfortable and Respiratory Distress (chronic)
HEENT: Oxygen (baseline 4L NC )
Respiratory: Non Labored Respirations
Cardiac: Regular Rhythm and S1/S2
GI: Soft, Nontender, Nondistended and Normal Bowel Sounds
Neuro: Awake, Alert and Oriented
Psych: Calm and Intact Judgement/Insight
Data Reviewed
-
CT Scan: Report Reviewed by me, Discussed with Patient and Discussed with Family
Labs: Labs Reviewed by me
[2024-12-28 08:48] LABS: Hematocrit 34.3 % (37.0-47.0); Hemoglobin 9.3 g/dL (12.0-16.0); Mean Corp Hgb Conc. 27.1 g/dL (33.0-37.0); Mean Corpuscular Volume 83.9 fL (81.0-99.0); Platelet Count 244 10^3/uL (130-400); Red Cell Dist. Width 18.7 % (11.5-14.5)
[2024-12-28] MEDS: THERAGRAN 1 TABLET PO (08:51)
[2024-12-28] MEDS: AZULFIDINE 500 MG PO (08:51)
[2024-12-28] MEDS: ZINC 50 MG PO (08:51)
[2024-12-28] MEDS: VITAMIN D3 (cholecalciferol) 25 MCG PO (08:51)
[2024-12-28] MEDS: MAGNESIUM OXIDE 400 MG PO (08:51)
[2024-12-28] MEDS: CARDIZEM CD 120 MG PO (08:51)
[2024-12-28] MEDS: ZITHROMAX 250 MG PO (08:51)
[2024-12-28] MEDS: VITAMIN B-12 50 MCG PO (08:51)
[2024-12-28] MEDS: RESTASIS 0.05% OPHTHALMIC EMULSION 1 DROPS BOTH EYES (08:52)
[2024-12-28] MEDS: VITAMIN C 1000 MG PO (08:52)
--- NOTE | 2024-12-28 10:02 | CM ---
entered order for discharge.
Spoke with Yesenia Correa she said patient needs to be home by 2 pm today and call [phone] with discharge time . Madeline Respiratory therapist will meet in home to set up [facility]. Dgt requested Textile Machinery Instructor call before dc. notified
via TT.
Aiden will drive pt home today.
Reviewed IMM with dgt and patient .Signed on chart .
Dahlia Mejía [facility] liaison set up [facility]
Oxygen 4 liter Pox 98%.Pt has home oxygen .
PLAN Home with [facility] DME with Madeline
[2024-12-28 10:10] LABS: Blood Urea Nitrogen 17 mg/dl (7-17); Calcium 9.6 mg/dl (8.4-10.2); Chloride 96 mmol/L (98-107); Estimated Creatinine Clearance 57 ml/min; Glucose 122 mg/dl (70-99); Potassium 4.9 mmol/L (3.5-5.1); Sodium 140 mmol/L (135-145); eGFR > 60.00
[2024-12-28 10:18] LABS: Carbon Dioxide 40 mmol/L (22-30)
--- NOTE | 2024-12-28 10:25 | W.PN.PUL.V3 ---
Today's Communication / Plan
-
Patient tenuous but improved and stable for proposed discharge
Prednisone taper to outpatient doses
Trilogy external ventilation or equivalent has been arranged
Reviewed with daughter
Outpatient consideration towards addition of Dupixent and pulmonary rehab if Achilles tendinitis improves
Assessment
-
End-stage COPD with acute exacerbation
Respiratory status is slowly improved
Continue nebulizers, oxygen, slow prednisone taper, azithromycin
Patient improved and will begin Trilegy ventilator or equivalent in the outpatient setting-appropriate paperwork has been completed and reviewed with case management
Consideration towards initiating Dupixent in the outpatient setting
Cardiology follow briefly for brief episode of atrial fibrillation
Stable for proposed discharge
Dr. Guevara called and reviewed with daughter again on 12/28/2024 and answered all her questions
Other medical diagnoses:
-Rheumatoid arthritis
-Chronic anemia
-Hypertension
-Anxiety
-Osteoporosis
#1. Acute on chronic hypoxic respiratory failure with acute COPD exacerbation. (Steroids and O2 dependent COPD, FEV1 22%)
- Followed by Dr. Shi at [facility]. At baseline patient uses Ensifentrine/Ohtyvare, supplemental oxygen, prednisone 10 mg daily, azithromycin Thursday, budesonide nebulized, Brovana and nebulized, in addition patient uses either
Combivent inhaler or Spiriva.
- FEV1 is 22% postbronchodilator, consistent with very severe COPD
- Slowly improving wheezing, no obvious infiltrate noted on chest x-ray
- CT suggestive of emphysema, no PE or infiltrates noted
- Agree with current treatment of azithromycin Thursday, DuoNeb scheduled along with budesonide and IV steroids.
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 Eosinophil count noted to be around 100. If she continues to do poorly, may consider Dupixent subcu injections as outpatient considering her steroid
dependent COPD with significant symptoms and hospitalizations despite maximal inhaled therapy.
- Influenza A, B, COVID-19 screen negative. WBC count normal, eosinophil count 100, afebrile. Chronically elevated serum bicarb. BNP 514, troponin 0.013
Patient would like to follow-up with pulmonary locally-we will leave instructions for [id number] are interested in starting dupixent
At time of discharge change Decadron to prednisone 50 mg daily for 4 days and then 40 mg daily for 4 days and then 30 mg daily for 4 days, then 20 mg daily for 4 days and then 10 mg daily until seen by pulmonary
#2. Chronic hypercapnic respiratory failure.
- VBG consistent with compensated hypercapnia
- With her advanced COPD and frequent exacerbations, she will likely benefit from nightly positive pressure ventilation/Trilogy. Discussed with patient's daughter and recommended to discuss with Dr. Shi.
Patient has significant chronic hypercapnic respiratory failure, frequent exacerbations, and believe she would benefit from nocturnal and daytime as needed. External ventilation from the machine such as Trilogy -consult to case management was
placed.
The patient has been evaluated at [facility] and reportedly was not a 'valve candidate' and it is unclear whether she was ever sent for transplant evaluation, which I would recommend if she is a candidate
New onset atrial fibrillation noted-spontaneously converted back to sinus rhythm
Cardiology consultation pending
DVT prophylaxis-on Lovenox.
Brief new onset atrial fibrillation
Dr. Guevara reviewed with at the bedside , as well as spoke to daughter for a total of 50 minutes on 2 separate occasions updating patient's condition on 12/26/2024, follow-up needs, prognosis, and treatment plan.
Dr. Guevara reviewed with daughter over the phone for 20 minutes on 12/27/2024 as well-I have discussed end-stage nature of her mother's disease and that she would be a hospice candidate with high chance of repetitive rehospitalization's due to
end-stage nature of her COPD
Dr. Guevara reviewed with daughter over the phone on 12/28/2024 and updated on current clinical situation, discharge medications, and discharge instructions
The patient would like to follow-up locally as well.-Potential initiation of Dupixent as well.
She has an appointment with ENT in January to rule out vocal cord dysfunction.
Bedside spirometry reveals very severe obstruction and patient and family have been told she has '19% expected lung function'
Patient has end-stage COPD with multiple emergency room and hospitalizations with chief complaint of shortness of breath and respiratory failure. The patient has a pCO2 of greater than 60 on 4 L oxygen and needs continuous oxygen supplementation.
Patient reports shortness of breath with minimal activity and reports significant reduction in activities of daily living. Due to the patient's COPD and hypoventilation patient is at risk of worsening chronic respiratory failure. I have considered
bilevel, bilevel ST and bilevel VAPS therapy and they have been ruled out due to the patient's worsening condition. The patient now requires a unique mode of ventilation not offered by less costly options. The patient requires a device that will
not fail in the event of power failure and also portable for mobility within the home when needed. Due to the patient's worsening condition I am prescribing noninvasive ventilation therapy to decrease the chance of continued unplanned expensive
medical encounters including physician office visits, emergency/urgent care treatments and hospital readmissions.
Data:
CXR 12/2024: No radiographic evidence of acute cardiopulmonary abnormality.
ECHO 11/2024: Low normal LV systolic function with left ventricular ejection fraction
estimated by Juarez's method 50%
Normal left ventricular wall thickness
Normal diastolic function.
Normal atrial dimensions
Aortic valve poorly visualized with mildly thickened leaflets consistent with
aortic sclerosis without stenosis. No significant aortic insufficiency.
Trace mitral and tricuspid insufficiency
Unable to estimate right heart pressures due to paucity of TR jet.
No pericardial effusion
No prior study available for comparison
Subjective Data
-
Date of Service:
Date of Service: December 28, 2024
Chief Complaint: Pulmonary Follow Up and Dyspnea Follow Up
Subjective:
Tolerated BiPAP, feels a little better, still has chest congestion, difficulties mobilizing secretions and dyspnea on exertion but overall improved
Review of Systems
General: Other (Per HPI)
Objective Data
Data Reviewed
Vital Signs / I&O:
Vital Signs
Temp Pulse Resp BP Pulse Ox
97.7 F 89 16 127/68 100
12/28/24 07:00 12/28/24 08:51 12/28/24 07:39 12/28/24 08:51 12/28/24 07:39
Intake and Output
12/27/24 12/28/24 12/29/24
06:59 06:59 06:59
Intake Total 480 / 480 800 / 800
Balance 480 / 480 800 / 800
SaO2: 100
Nasal Cannula flow liters per minute: 4
Physical Exam
General: Respiratory Distress (n) and Comfortable
HEENT: Normocephalic and Anicteric
Cardiovascular: Regular Rhythm
Respiratory: Wheeze, Rhonchi (Expiratory), Non-Labored Respirations, Accessory Resp Muscle Use (n), Stridor (n) and Other ( no stridor)
GI: Soft, Non Distended and Non Tender
Neurology: Awake, Alert and No Motor Deficits
Skin: Warm, Good Color, Cyanosis (n), Jaundice (n) and Rash (n)
Labs/Micro/Reports
Lab Data
12/28/24 08:25
12/28/24 08:25
--- NOTE | 2024-12-28 10:30 | VNURNOTE ---
Called patient's daughter Paul (per her request, after 1000). She was unable to talk. With her permission, texted her [employer] contact #, to contact them when patient is leaving the hospital. Also texted her [facility] contact number and that [facility]
will reach out for visits after pt DC'ed.
[2024-12-28] MEDS: FERRLECIT 110 MG IV (10:31)
--- NOTE | 2024-12-28 11:44 | W.PN.UPDATE ---
Update Note
Progress Note Update
Patient will follow up with her primary performance specialist, Dr. Gonsalez, about starting OAC for brief episode of Afib. Instruction paperwork updated by me.
[2024-12-28 12:23] VITALS: BP 113/61
--- NOTE | 2024-12-28 13:37 | W.DCSUMMARY ---
Discharge Summary
Discharge Data
Date of Admission: 12/23/24
Date of Discharge: 12/28/24
Total time spent discharging patient (in min): 40
-
Pending Results: No
Hospital Course
Principal Diagnosis:
Acute on chronic hypoxic respiratory failure secondary to COPD exacerbation
End-stage COPD lung disease
Paroxysmal Atrial fibrillation, spontaneously converted to normal sinus rhythm
Chronic Diagnoses:�
Chronic hypoxic respiratory failure on 4 L nasal cannula at baseline
Chronic Anemia
Iron deficiency anemia
Anxiety/depression, on sertraline
Rheumatoid arthritis, on Actemra, leflunomide and chronic prednisone
Essential Hypertension
Osteoporosis, on alendronate
Herpes prophylaxis on valacyclovir
Paradoxical vocal cord dysfunction
Former smoker
Consultations:�
Pulmonary
Cardiology
Procedures:�
None
Clinical course:�
This is a 74-year-old female with past medical history as stated above who presented with shortness of breath and acute on chronic hypoxic respiratory failure.
Problem 1:
Acute on chronic hypoxic respiratory failure secondary to COPD exacerbation.
End-stage COPD per pulmonary evaluation.
Her chest x-ray showed no acute cardiopulmonary abnormality. Her procalcitonin was negative.
Her CT PE was negative for PE, noted suspect changes of emphysema, overall peripheral prominent size of pulmonary interstitial markings widespread bilaterally at least in part could be chronic, acute interstitial pneumonitis cannot be excluded. No
focal parenchymal consolidation, pneumothorax or pleural effusion.
Her oxygen requirement was weaned back to her baseline 4L nasal cannula.
The patient received [id number] and as needed DuoNeb while in the hospital.
Trelegy external ventilator has been arranged for the patient to continue following discharge.
The patient received IV Decadron 4 mg every 12 hours while in the hospital, and she was discharged with oral prednisone taper (start at 50 mg daily, decrease 10 mg every 3 days until she is back to her home dose at 5 mg twice daily).
She can continue with her chronic azithromycin 250 mg Thursday.
Problem 2:
Paroxysmal Atrial fibrillation, spontaneously converted to normal sinus rhythm following IV Lopressor.
She was started with diltiazem CD 120 mg daily per cardiology, which she can continue going forward.
As for the rest of her medical problems, they were stable during her hospital stay.
Discharge Plan
-
Patient Disposition: Home with Home Care
Discharge Diagnosis/Procedures: Acute on chronic hypoxic respiratory failure secondary to COPD exacerbation;
Paroxysmal Atrial fibrillation;
Chronic Anemia/ iron deficiency anemia;
Rheumatoid arthritis;
Paradoxical vocal cord dysfunction
Condition: Fair
Diet: As tolerated
Activity: As tolerated
Driving Restrictions: As prior to admission
Referrals:
Odalis Maldonado DO [Family Provider, Family Practice] - in less than 1 week
Angel Gonsalez MD [Non-Admitting Privileges, Internal Medicine] - in two to three weeks
Referral Note: Follow up with Dr. Gonsalez to discuss starting on a blood thinner like Eliquis or Xarelto because of an episode of atrial fibrillation you had this admission.
Ki Guevara MD [Active, Pulmonary Medicine]
Referral Note: COPD, PFTs, possible Dupixent and rehab
Additional Discharge Medication Instructions: You were started with Cardizem 120 mg daily for rate control.
Continue prednisone taper until you are back to your previous home dose at 5 mg twice daily
Prescriptions:
New
diltiazem HCl 120 mg Capsule,Extended Release 24hr
120 mg PO DAILY Qty: 30 0RF
prednisone 10 mg Tablet
See Rx Instructions .ROUTE .COMPLEX Qty: 100 0RF
Rx Instructions:
50 mg daily x3 days, 40 mg daily x3 days, 30 mg daily x3 days, 20 mg daily x3 days, then back to previous dose 5 mg twice daily
Continued
ipratropium-albuterol 0.5 mg-3 mg(2.5 mg base)/3 mL Solution For Nebulization
3 ml INHALATION R QID
lidocaine 4 % Adhesive Patch,Medicated
1 patch TOPICAL DAILYPRN PRN (Reason: right knee)
alendronate 70 mg Tablet
70 mg PO MARTELL
leflunomide 10 mg Tablet
20 mg PO HS
valacyclovir 500 mg Tablet
500 mg PO HS
budesonide 0.5 mg/2 mL Suspension For Nebulization
0.5 mg inhalation R BID
Eugene-24 200 mg Capsule,Extended Release 24hr
200 mg PO HS
arformoterol [Brovana] 15 mcg/2 mL Solution For Nebulization
2 ml INHALATION R BID
Actemra 400 mg/20 mL (20 mg/mL) Solution
400 mg IV Q4W
Spiriva Respimat 2.5 mcg/actuation Mist
2 puff INHALATION R HS
Combivent Respimat 20-100 mcg/actuation Mist
1 puff INHALATION R QIDPRN PRN (Reason: sob)
azithromycin 250 mg tablet
250 mg PO @1999
cyclosporine [Restasis] 0.05 % dropperette
1 drp BOTH EYES BID
torsemide 20 mg Tablet
20 mg PO QPM
therapeutic multivitamin Tablet
1 tab PO @1999
spironolactone 25 mg Tablet
25 mg PO DAILYPRN PRN (Reason: blood pressure-when she remembers)
cholecalciferol (vitamin D3) [Vitamin D3] 25 mcg (1,000 unit) Tablet
25 mcg PO MOTUWETHFRSA
ascorbic acid (vitamin C) [Vitamin C] 1,000 mg Tablet
1,000 mg PO QPM
sulfasalazine 500 mg Tablet
500 mg PO BID
potassium chloride 10 mEq Tablet Extended Release
10 meq PO DAILYPRN PRN (Reason: supplement-when she remembers)
cyanocobalamin (vitamin B-12) 50 mcg Tablet
50 mcg PO MOWEFR@1999
Citrucel 500 mg Tablet
1,000 mg PO QPM
albuterol sulfate 90 mcg/actuation Hfa Aerosol Inhaler
2 puff INHALATION R Q4HPRN PRN (Reason: sob)
magnesium oxide 400 mg magnesium Tablet
400 mg PO QPM Qty: 0
Ohtuvayre 3 mg/2.5 mL Suspension For Nebulization
2.5 ml INHALATION R BID
Patient Comments:
11/13/2024, pt. fills through [facility].
prednisone 5 mg tablet
5 mg PO BID
acetaminophen 650 mg Tablet Extended Release
650 mg PO [id number] PRN (Reason: headaches)
sertraline 25 mg Tablet
25 mg PO HS
Nurtec ODT 75 mg Tablet,Disintegrating
75 mg PO DAILYPRN PRN (Reason: mirgraines)
Breztri Aerosphere 160-9-4.8 mcg/actuation Hfa Aerosol Inhaler
2 inh INHALATION R BID
Discharge Orders:
Discharge Patient (As Directed); Ordered 12/28/24
Ordered By: Lois Martinez
Discharge Date and Time
Print Language: CROATIAN
== END 2024-12-28 14:24 | disposition home health service (06) | DRG 189 ==
LOC: 4 EAST ACU 16:52
PROVIDERS: Internal Medicine; Student in an Organized Health Care Education/Training Program; ADMITTING PHYSICIAN Internal Medicine; ATTENDING PHYSICIAN Internal Medicine; CONSULT PHYSICIAN Internal Medicine Cardiovascular Disease; EMERGENCY PHYSICIAN Emergency Medicine; FAMILY PHYSICIAN Family Medicine; OTHER PHYSICIAN Internal Medicine
PROC: 5A09357 Assistance with Respiratory Ventilation, Less than 24 Consecutive Hours, Continuous Positive Airway Pressure (ICD-10-PCS; 2024-12-27)
DX: J96.21 Acute and chronic respiratory failure with hypoxia (principal); J44.1 Chronic obstructive pulmonary disease with (acute) exacerbation; I48.92 Unspecified atrial flutter; J96.12 Chronic respiratory failure with hypercapnia; D50.9 Iron deficiency anemia, unspecified; D63.8 Anemia in other chronic diseases classified elsewhere; F32.A Depression, unspecified; F41.9 Anxiety disorder, unspecified; G43.909 Migraine, unspecified, not intractable, without status migrainosus; H26.9 Unspecified cataract; I10 Essential (primary) hypertension; I48.0 Paroxysmal atrial fibrillation; I89.0 Lymphedema, not elsewhere classified; J38.3 Other diseases of vocal cords; M06.9 Rheumatoid arthritis, unspecified; M81.0 Age-related osteoporosis without current pathological fracture; R73.03 Prediabetes; Z87.891 Personal history of nicotine dependence; Z99.81 Dependence on supplemental oxygen; Z79.899 Other long term (current) drug therapy; Z79.83 Long term (current) use of bisphosphonates; Z79.52 Long term (current) use of systemic steroids; Z79.51 Long term (current) use of inhaled steroids; Z11.52 Encounter for screening for COVID-19
CPT/HCPCS: 71046; 71275; 80048; 80053; 82728; 82805; 83540; 83550; 83735; 83880; 84100; 84145; 84443; 84484; 85025; 85027; 87502; 87811; 93005; 94640; 94660; 96374; 97163; 97530; 99285; J2916; Q9967

== ENCOUNTER 2025-02-14 19:49 | Inpatient (IN) | payer MEDICARE, SELFPAY ==
[2025-02-14] VITALS (19 sets, daily range): BP systolic 107–180; BP diastolic 53–94; PULSE 2–113; BMI 19.6
[2025-02-14] MEDS: SOLU-MEDROL PF 125 MG IV (17:21)
[2025-02-14] MEDS: MAGNESIUM SULFATE 1 GM IV (17:24)
--- NOTE | 2025-02-14 17:31 | ED.GENMED ---
History of Present Illness
General
Chief Complaint: Breathing Problem
History of Present Illness
History of Present Illness:
Patient presents to the emergency department with respiratory distress. Patient is altered on arrival and unable to provide reliable medical history. Per report, she has a history of COPD and was complaining of shortness of breath and wheezing.
She was given nebs and route and had worsening of her clinical status. On arrival patient is awake but confused and she was placed on BiPAP.
Past History
Past History
ED Past Medical History: COPD (emphysema) and Other (anemia, RA, Migraines, )
ED Past Surgical History: , Gynecological (Hysterectomy, Fibroid removed, ), Orthopedic (Right wrist surgery, Left tibial fracture) and Other (Dental surgery cataracts, )
Social History
Tobacco: Former smoker
Alcohol: None
Drug: None
Personal:
Living: with family
Employment: Other
Family History
Family History: Other
Phy Exam
Physical Exam
Physical Exam:
GENERAL APPEARANCE: patient is awake with her eyes closed. She is arousable to voice. She is not oriented. Patient is in respiratory distress
EYES lids/conjunctiva normal
EARS/NOSE/THROAT Mucous membranes moist, uvula midline without oral pharyngeal erythema, exudate or swelling
HEAD/NECK normocephalic atraumatic, neck is supple.
RESPIRATORY diminished breath sounds bilaterally, faint wheezing
CARDIAC tachycardia
ABDOMINAL Soft, ND/NT.
MUSCLES/EXTREMITIES No abnormal range of motion, no swelling.
SKIN Warm, pink and dry. No rashes
NEUROLOGICAL arousable to voice. Moves all extremities. No facial droop.
Scores
Heart Failure Risk
Heart Failure Risk Score: Not Applicable
Course
Orders/Labs/Results
Orders:
Orders
02/14/25 17:20
Electrocardiogram (*1) Urgent
Reason for Study: Shortness of Breath
EKG- Treatment ONCE
MethylPREDNISolone PF [Solu-Medrol Pf] 125 mg IV NOW STA
02/14/25 17:23
Magnesium Sulfate 1 G/D5w [Magnesium Sulfate] 1 gm IV NOW STA
02/14/25 17:26
Complete Blood Count/With Diff Urgent
Comprehensive Metabolic Panel Urgent
NT-proBNP Urgent
Troponin I Urgent
02/14/25 17:27
Lactic Acid Urgent
Venous Blood Gas Urgent
%Oxygen/Room Air: bipap
02/14/25 17:31
Albuterol Nebs [Ventolin Nebules] 10 mg INH R NOW STA
02/14/25 17:47
CR Chest Portable - 1 View Urgent
Comment:
Reason For Exam: sob
Reason Study Needs to be Portable: Patient Unstable
02/14/25 18:22
Blood Culture Urgent
TATE Source: Blood/Venous
Specimen Description:
02/14/25 18:31
Venous Blood Gas Urgent
%Oxygen/Room Air: 100
Comment: bipap
02/14/25 18:33
Blood Culture Urgent
TATE Source: Blood/Venous
Specimen Description:
Abnormal Lab Results
02/14/25 02/14/25 02/14/25
17:26 17:27 17:29
WBC 12.4 H 10^3/uL
(4.8-10.8)
MCH 26.4 L pg
(27.0-31.0)
MCHC 28.1 L g/dL
(33.0-37.0)
RDW 22.2 H %
(11.5-14.5)
Abs Immat Gran (auto) 0.1 H 10^3/uL
(0-0.05)
Absolute Neuts (auto) 8.1 H 10^3/uL
(1.4-6.5)
Absolute Monos (auto) 1.7 H 10^3/uL
(0.1-0.6)
Immature Gran % 0.6 H %
(0-0.5)
Lymphocytes % 18.1 L %
(20.5-51.1)
Monocytes % 13.9 H %
(1.7-9.3)
VBG pH 7.16 L*
(7.32-7.43)
VBG pCO2 > 115 H* mmHg
(35-48)
VBG pO2 179 H mmHg
(30-50)
VBG HCO3 44.2 H mmol/L
(22-27)
Chloride 97 L mmol/L
(98-107)
Carbon Dioxide 40 H mmol/L
(22-30)
BUN 18 H mg/dl
(7-17)
Creatinine 0.4 L mg/dL
(0.6-1.0)
Glucose 131 H mg/dl
(70-99)
Alkaline Phosphatase 161 H U/L
(38-126)
POC Glucose 142 H mg/dl
(70-99)
02/14/25 17:26
02/14/25 17:26
Vital Signs
Initial and Last Documented VS:
Initial Vital Signs
Pulse Resp Pulse Ox
116 23 90
02/14/25 17:19 02/14/25 17:19 02/14/25 17:19
Last Documented Vital Signs
Pulse Resp BP Pulse Ox
88 28 116/59 95
02/14/25 18:30 02/14/25 18:30 02/14/25 18:30 02/14/25 18:30
*Pulse Oximetry
SaO2: 96
Nasal Cannula flow liters per minute: 15
Patient hypoxic: yes
*Critical Care Note
Total Time (30-74mins, 75-104mins- exclusive of procedures): 35
ED Attending Note
ED Attending Note
ED Attending Note:
admit to likely ICU for hypoxic/hypercarbic respiratory failure on BIPAP
severe COPD with emphysema, oxygen dependent at home
presents with gradually worsening respiratory distress altered mental status on arrival.
on arrival was tired but arousable, placed on bipap, continuous nebs for 1 hour, 125mg solumedrol, 1gram magnesium
VBG 7.16/>115.
it is now about an hour later on bipap and she is more easily arousable, following commands. I do not feel she needs intubation at this time but she needs to be watched very closely
repeating blood gas now
CXR without infiltrate or pneumothorax
-
Portions of this chart may have been created with voice recognition software.� Occasional wrong word or��sound alike� substitutions may have occurred due to the inherent limitations of voice recognition software.
Discharge Plan
Departure
Prescriptions:
No Action
ipratropium-albuterol 0.5 mg-3 mg(2.5 mg base)/3 mL Solution For Nebulization
3 ml INHALATION R QID
lidocaine 4 % Adhesive Patch,Medicated
1 patch TOPICAL DAILYPRN PRN (Reason: right knee)
alendronate 70 mg Tablet
70 mg PO MARTELL
leflunomide 10 mg Tablet
20 mg PO HS
valacyclovir 500 mg Tablet
500 mg PO HS
budesonide 0.5 mg/2 mL Suspension For Nebulization
0.5 mg inhalation R BID
Eugene-24 200 mg Capsule,Extended Release 24hr
200 mg PO HS
arformoterol [Brovana] 15 mcg/2 mL Solution For Nebulization
2 ml INHALATION R BID
Actemra 400 mg/20 mL (20 mg/mL) Solution
400 mg IV Q4W
Spiriva Respimat 2.5 mcg/actuation Mist
2 puff INHALATION R HS
Combivent Respimat 20-100 mcg/actuation Mist
1 puff INHALATION R QIDPRN PRN (Reason: sob)
azithromycin 250 mg tablet
250 mg PO MOWEFR@1999
cyclosporine [Restasis] 0.05 % dropperette
1 drp BOTH EYES BID
torsemide 20 mg Tablet
20 mg PO QPM
therapeutic multivitamin Tablet
1 tab PO MOWEFR@1999
spironolactone 25 mg Tablet
25 mg PO DAILYPRN PRN (Reason: blood pressure-when she remembers)
cholecalciferol (vitamin D3) [Vitamin D3] 25 mcg (1,000 unit) Tablet
25 mcg PO MOTUWETHFRSA
ascorbic acid (vitamin C) [Vitamin C] 1,000 mg Tablet
1,000 mg PO QPM
sulfasalazine 500 mg Tablet
500 mg PO BID
potassium chloride 10 mEq Tablet Extended Release
10 meq PO DAILYPRN PRN (Reason: supplement-when she remembers)
cyanocobalamin (vitamin B-12) 50 mcg Tablet
50 mcg PO MOWEFR@1999
Citrucel 500 mg Tablet
1,000 mg PO QPM
albuterol sulfate 90 mcg/actuation Hfa Aerosol Inhaler
2 puff INHALATION R Q4HPRN PRN (Reason: sob)
magnesium oxide 400 mg magnesium Tablet
400 mg PO QPM Qty: 0
Ohtuvayre 3 mg/2.5 mL Suspension For Nebulization
2.5 ml INHALATION R BID
Patient Comments:
11/13/2024, pt. fills through [facility].
prednisone 5 mg tablet
5 mg PO BID
acetaminophen 650 mg Tablet Extended Release
650 mg PO [id number] PRN (Reason: headaches)
sertraline 25 mg Tablet
25 mg PO HS
Nurtec ODT 75 mg Tablet,Disintegrating
75 mg PO DAILYPRN PRN (Reason: mirgraines)
Breztri Aerosphere 160-9-4.8 mcg/actuation Hfa Aerosol Inhaler
2 inh INHALATION R BID
diltiazem HCl 120 mg Capsule,Extended Release 24hr
120 mg PO DAILY Qty: 30 0RF
prednisone 10 mg Tablet
See Rx Instructions .ROUTE .COMPLEX Qty: 100 0RF
Rx Instructions:
50 mg daily x3 days, 40 mg daily x3 days, 30 mg daily x3 days, 20 mg daily x3 days, then back to previous dose 5 mg twice daily
Referrals:
Odalis Maldonado DO [Family Provider, Family Practice]
Interventions
Interventions:
*Risk Screen - Suicide Last Done: 02/14/25 17:22
*General Assessment Last Done: 02/14/25 17:22
*Neglect/Abuse Screening Last Done: 02/14/25 17:22
*ED COVID-19 Vaccine History Last Done: 02/14/25 17:22
*ED Influenza Vaccine History Last Done: 02/14/25 17:22
ED- Cardiac Assessment Last Done: 02/14/25 17:57
ED- Pulmonary Assessment Last Done: 02/14/25 17:57
Discharge Date and Time
Print Language: PRYDEINIG
[2025-02-14 17:32] LABS: Glucose - Point of Care 142 mg/dl (70-99)
[2025-02-14] MEDS: VENTOLIN NEBULES 10 MG INH (17:32)
[2025-02-14 17:36] LABS: Venous Blood Gas B.E. 10.6 mmol/L (-4 to +4); Venous Blood Gas O2 Sat % 99.7 %
[2025-02-14 17:38] LABS: Hematocrit 44.5 % (37.0-47.0); Hemoglobin 12.5 g/dL (12.0-16.0); Mean Corp Hgb Conc. 28.1 g/dL (33.0-37.0); Mean Corpuscular Volume 93.9 fL (81.0-99.0); Nucleated Red Blood Cells % 0 %; Platelet Count 249 10^3/uL (130-400); Red Cell Dist. Width 22.2 % (11.5-14.5)
[2025-02-14 17:56] LABS: ALT (SGPT) 24 U/L (0-35); AST (SGOT) 31 U/L (14-36); Albumin 4.3 g/dl (3.5-5.0); Alkaline Phosphatase 161 U/L (38-126); Blood Urea Nitrogen 18 mg/dl (7-17); Calcium 9.7 mg/dl (8.4-10.2); Chloride 97 mmol/L (98-107); Glucose 131 mg/dl (70-99); Potassium 4.7 mmol/L (3.5-5.1); Sodium 143 mmol/L (135-145); Total Protein 7.1 g/dl (6.3-8.2); eGFR > 60.00
[2025-02-14 18:01] LABS: Troponin I 0.016 ng/ml
[2025-02-14 18:04] LABS: Anisocytosis 2+; Macrocytosis 1+; Microcytosis 1+; Normal RBC Morphology No
[2025-02-14 18:05] LABS: Carbon Dioxide 40 mmol/L (22-30); Hypochromasia 2+
[2025-02-14 18:38] LABS: Venous Blood Gas B.E. 11.6 mmol/L (-4 to +4); Venous Blood Gas O2 Sat % 99.8 %
--- NOTE | 2025-02-14 18:48 | HPS.HSE ---
Addendum entered and electronically signed by Sasha Diallo MD 02/14/25 20:05:
Given daughter reports increased LE swelling and patient hasn't taken Lasix in several days, will trial Lasix 40mg IV x 1.
Original Note:
Family Physician
-
Family Physician: Odalis Maldonado
Chief Complaint
-
shortness of breath
History of Present Illness
Ms. Lucero Ramirez is a 74 yo woman with hx severe COPD (FEV1 22%), chronic hypoxic respiratory failure on home oxygen 4L, paroxysmal afib noticed hospitalization 12/2024, NEREYDA, anxiety/depression, essential HTN, former smoker prsents to the ER in
respiratory distress and altered. Patient was placed on BiPAP upon arrival to the ER.
History obtained from daughter and at bedside. Patient was prescribed a BiPAP last admission in December. She does not like wearing it but wears 6 nights a week with one night off per family. Over past two weeks she has had increased
fatigue. Patient reports she has had increased sputum production. No nausea/vomiting/diarrhea. She has increased LE swelling per daughter and she hasn't taken her diuretic in 4 days. No fevers.
Medical History
Past Medical History
Past Medical History: Reports Other (COPD-severe on chronic O2. Migraines. Chronic lower extremity lymphedema. Anxiety. Osteoporosis. Rheumatoid Tritus. Anemia. Hypertension. Prediabetes. . Hysterectomy. Right wrist surgery. Left
tibial fracture surgery. Dental surgery. Cataract.)
Past Surgical History: Reports Other
Social History
Tobacco: Former Smoker ([id number], quit start 2005)
Alcohol: None
Drug: None
Personal:
Living: With Family
Family History
Family History: Not pertinent
Allergies / Home Medications
Allergies reflects when Allergies were last updated in [facility].
Home Medications with original date entered in [facility]
Allergy/Medication List:
Allergies
Allergy/AdvReac Type Severity Reaction Status Date / Time
mannitol (From Reclast) Allergy Swelling Verified 12/23/24 12:28
water for injection,sterile Allergy Swelling Verified 12/23/24 12:28
(From Reclast)
zoledronic acid (From Allergy Swelling Verified 12/23/24 12:28
Reclast)
Home Medications
alendronate 70 mg tablet 70 mg PO MARTELL osteoporosis 06/27/23
arformoterol 15 mcg/2 mL solution for nebulization (Brovana) 2 ml inhalation R BID 06/27/23
azithromycin 250 mg tablet 250 mg PO MOWEFR copd 06/27/23
budesonide 0.5 mg/2 mL suspension for nebulization 0.5 mg inhalation R BID 06/27/23
cyclosporine 0.05 % eye drops in a dropperette (Restasis) 1 drp BOTH EYES BID dry eyes 06/27/23
ipratropium 0.5 mg-albuterol 3 mg (2.5 mg base)/3 mL nebulization soln 3 ml inhalation R QID 06/27/23
ipratropium 20 mcg-albuterol 100 mcg/actuation mist for inhalation (Combivent Respimat) 1 puff inhalation R QIDPRN PRN sob 06/27/23
leflunomide 10 mg tablet 20 mg PO HS rheumatoid arthritis 06/27/23
lidocaine 4 % topical patch 1 patch topical DAILYPRN PRN L knee & L hip 06/27/23
theophylline 200 mg capsule,extended release 24 hr (Eugene-24) 200 mg PO HS copd 06/27/23
tiotropium bromide 2.5 mcg/actuation mist for inhalation (Spiriva Respimat) 2 puff inhalation R HS copd 06/27/23
tocilizumab 400 mg/20 mL (20 mg/mL) intravenous solution (Actemra) 400 mg IV Q4W rheumatoid arthritis 06/27/23
valacyclovir 500 mg tablet 500 mg PO HS viral infection 06/27/23
cholecalciferol (vitamin D3) 25 mcg (1,000 unit) tablet (Vitamin D3) 25 mcg PO MOTUWETHFRSA Supplement 07/16/23
spironolactone 25 mg tablet 25 mg PO DAILYPRN PRN blood pressure 07/16/23
therapeutic multivitamin 1 tab PO MOWEFR Supplement 07/16/23
torsemide 20 mg tablet 20 mg PO DAILYPRN PRN edema 07/16/23
Chelated Magnesium 200 mg PO MOTUWETHFRSA 11/13/24
albuterol sulfate 90 mcg/actuation aerosol inhaler 2 puff inhalation R Q4HPRN PRN sob 11/13/24
ascorbic acid (vitamin C) 1,000 mg tablet (Vitamin C) 1,000 mg PO MOTUWETHFRSA 11/13/24
cyanocobalamin (vitamin B-12) 50 mcg tablet 50 mcg PO MOWEFR 11/13/24
ensifentrine 3 mg/2.5 mL suspension for nebulization (Ohtuvayre) 2.5 ml inhalation R BID 11/13/24
methylcellulose (laxative) 500 mg tablet (Citrucel) 1,000 mg PO DAILY 11/13/24
potassium chloride 10 mEq tablet,extended release 10 meq PO DAILYPRN PRN supplement 11/13/24
prednisone 5 mg tablet 5 mg PO HS rheumatoid arthritis 11/13/24
sulfasalazine 500 mg tablet 500 mg PO BID 11/13/24
zinc 30 mg PO MOWEFR 11/13/24
prednisone 20 mg tablet 40 mg (2 x 20 mg) PO DAILY #8 tabs 11/14/24
Review of Systems
-
History Source: Patient
A 12 point ROS was completed and negative except as noted: Yes
Physical Exam
Vital Signs
Vital Signs
Pulse Resp BP Pulse Ox
82 24 116/59 96
02/14/25 18:45 02/14/25 18:45 02/14/25 18:30 02/14/25 18:45
Physical Exam
General: Other (patient opens eye to voice then quickly falls back asleep; able to shake head yes or no)
HEENT: PERRLA
Respiratory: Decreased Breath Sounds; No Wheezes
Cardiac: S1/S2 and Regular Rhythm
GI: Soft and Non Tender
Musculoskeletal: Other (LLE swelling slightly larger than right )
Skin: Warm and Dry; No Rash
Neuro: AO x 3
Psych: Calm
Laboratory Results
-
02/14/25 17:26
02/14/25 17:
Laboratory Results
Lactic Acid 0.8 mmol/L (0.7-2.0) 02/14/25 17:27
Total Bilirubin 0.5 mg/dl (0.2-1.3) 02/14/25 17:
AST 31 U/L (14-36) 02/14/25 17:26
ALT 24 U/L (0-35) 02/14/25 17:
Alkaline Phosphatase 161 U/L (38-126) H 02/14/25 17:26
Troponin I 0.016 ng/ml 02/14/25 17:26
Data Reviewed
-
Diagnostic Radiology: Report Reviewed by me
Lab Data: Labs Reviewed by me
Impression/Plan
-
Ms. Lucero Ramirez is a 74 yo woman with hx severe COPD (FEV1 22%), chronic hypoxic respiratory failure on home oxygen 3L rest; 4 with exertion, paroxysmal afib noticed hospitalization 12/2024, NEREYDA, anxiety/depression, essential HTN, former smoker
prsents to the ER in respiratory distress and altered. Patient was placed on BiPAP upon arrival to the ER.
Triage VS: P 116, RR 23, SpO2 80's on 4L, placed on BiPAP
LABS: WBC 12.4, Hg 12.5, PLT 249, Na 143, K+ 4.7, Cl 97, CO2 40, BUN 18, Cr 0.4, Glucose 131, Lactate 0.8, T. Bili 0.5, AST 31, ALT 24, Alk Phos 161, Trop 0.016, BNP 356
Blood gas: 7.16/> 115/ 179; --> 7.20/ 112/ 129
Severe COPD, Acute Exacerbation
Hypoxic and Hypercarbic Respiratory Failure
Chronic Hypoxic Respiratory Failure on 3L rest, 4 with exertion
Former smoker, quit in 2005 40 pack year history
-patient placed on BiPAP 18/5 in ER with mild improvement in ABG and improvement in mentation (arousable, nods yes or no)
-admit to ICU
-check flu and covid; follow up final CXR read, my read without e/o infiltrate
-s/p IV Methylprednisolone 125mg in ER; continue 60mg IV BID
-standing duonebs and PRN
-IV Cefepime given severity of COPD
-patient is on daily prednisone, BiPAP qhs and Azithromycin at home
Paroxysmal Atrial Fibrillation noted admission 01/02
Anxiety/Depression
NEREYDA - per daughter, patient had recent iron infusions
Essential HTN
DVT PPx Lovenox subQ
FULL CODE
Total Critical Care Time 50 minutes. I was immediately available to the patient and staff. I personally examined, reviewed labs, diagnostic images/reports, interpretations, treatment plans, discussed patient care with other providers and family
or caregivers (if patient is unable to make decisions), entered orders as appropriate and documented the medical record.
[2025-02-14] MEDS: ATROVENT NEBULES 0.5 MG INH (19:08)
[2025-02-14] MEDS: MAXIPIME 2000 MG IV (19:13)
[2025-02-14] MEDS: STERILE WATER FOR INJECTION 10 ML IV (19:13)
[2025-02-14 19:49] LABS: COVID-19 Antigen Negative (Negative)
[2025-02-14 20:51] LABS: Magnesium 2.1 mg/dl (1.6-2.3)
[2025-02-14 21:04] LABS: Glucose - Point of Care 138 mg/dl (70-99)
[2025-02-14] MEDS: LOVENOX 40 MG SC (21:09)
[2025-02-14] MEDS: LASIX 40 MG IV (21:09)
[2025-02-14] MEDS: PROTONIX IV 40 MG IV (21:10)
[2025-02-14] MEDS: NSS (PRESERVATIVE FREE) 10 ML IV (21:10)
[2025-02-14 21:14] LABS: B.E. 13.0 mmol/L; O2 Saturation % 98.0 % (94-98); PO2 84 mmHg (83-108)
[2025-02-14 21:15] LABS: HCO3 45.0 mmol/L (21-28); PCO2 110 mmHg (32-35)
[2025-02-14] MEDS: MUCINEX PO (21:42)
--- NOTE | 2025-02-14 21:54 | PTCARENOTE ---
Addendum entered by Catia Warner RN 02/14/25 22:09:
ABG to be rechecked at 2300.
Original Note:
Received patient from ED with the BIPAP 12/8 8 liters. Patient lethargic but responsive to voice. Family at bedside. Patient noted to have large left arm skin tear. Dressing placed and wound care consulted. ABG completed by respiratory and results
reviewed with ICU provider. Given lasix 40 mg x1 with no urine output. Bladder scanned for 436. BIPAP settings changed to 20/14 8 liters with goal to improve repeat ABG to avoid intubation. Repeat ABG set for 2200.
[2025-02-14] MEDS: PULMICORT INH (22:55)
[2025-02-14] MEDS: DIAMOX 2.5 MG IV (23:03)
[2025-02-14 23:33] LABS: B.E. 15.9 mmol/L; O2 Saturation % 98.1 % (94-98); PO2 72 mmHg (83-108)
[2025-02-15] VITALS (30 sets, daily range): BP systolic 82–130; BP diastolic 46–66; PULSE 2–99; BMI 19.6
[2025-02-15 00:07] LABS: O2 Therapy Room Air 60
[2025-02-15 00:08] LABS: HCO3 45.9 mmol/L (21-28); PCO2 89 mmHg (32-35)
--- NOTE | 2025-02-15 00:25 | PTCARENOTE ---
Repeat ABG improving. Results reviewed by ICU provider with family. Plan is to remain on the BIPAP 20/8 6 liters. Patient awakens to tactile stimuli. Lemons placed for critical I/O's with 450 initial output.
[2025-02-15] MEDS: STERILE WATER FOR INJECTION 10 ML IV ×3 (03:16→20:42)
[2025-02-15] MEDS: MAXIPIME 2000 MG IV ×3 (03:16→20:42)
[2025-02-15 03:31] LABS: Venous Blood Gas B.E. 14.4 mmol/L (-4 to +4); Venous Blood Gas O2 Sat % 86.5 %
[2025-02-15 03:34] LABS: Venous Blood Gas O2 Therapy Room Air 40
--- NOTE | 2025-02-15 03:42 | PTCARENOTE ---
Patient VBG critical this am with result of 102. ICU [employer]IST made aware and came to patient bedside to assess. Patient awakens to tactile stimuli. No new orders at this time. Remains on BIPAP 20/8 6 liters.
[2025-02-15 03:49] LABS: INR 1.00; PT 13.5 Sec (11.4-14.6)
[2025-02-15 03:50] LABS: APTT 31.9 Sec (23.4-35.0)
[2025-02-15 03:59] LABS: Hematocrit 41.2 % (37.0-47.0); Hemoglobin 11.8 g/dL (12.0-16.0); Mean Corp Hgb Conc. 28.6 g/dL (33.0-37.0); Mean Corpuscular Volume 92.6 fL (81.0-99.0); Nucleated Red Blood Cells % 0 %; Platelet Count 191 10^3/uL (130-400); Red Cell Dist. Width 22.0 % (11.5-14.5)
[2025-02-15 04:07] LABS: Blood Urea Nitrogen 21 mg/dl (7-17); Calcium 9.5 mg/dl (8.4-10.2); Chloride 95 mmol/L (98-107); Estimated Creatinine Clearance 54 ml/min; Glucose 146 mg/dl (70-99); Potassium 4.4 mmol/L (3.5-5.1); Sodium 142 mmol/L (135-145); eGFR > 60.00
[2025-02-15 04:19] LABS: Carbon Dioxide 42 mmol/L (22-30)
[2025-02-15] MEDS: DIAMOX 2.5 MG IV ×3 (05:15→20:52)
[2025-02-15] MEDS: SOLU-MEDROL PF 60 MG IV ×2 (05:15→18:09)
--- NOTE | 2025-02-15 07:39 | W.PN.HOSP.TC ---
Today's Communication/Plan
-
See plan
Assessment / Plan
Assessment / Plan
Physical Exam
General: Not in acute distress
HEENT: Normocephalic
Respiratory: Equal air entry B/L while on BiPAP
Cardiac: S1/S2 and Regular Rhythm
GI: Soft and Non Tender. Positive bowel sounds.
Musculoskeletal: Other (LLE swelling slightly larger than right )
Skin: Warm and Dry
Neuro: AAO x 3
Psych: Calm
Assessment/Plan
74 yo woman with hx severe COPD (FEV1 22%), chronic hypoxic respiratory failure on home oxygen 4L, paroxysmal afib noticed hospitalization 12/2024, NEREYDA, anxiety/depression, essential HTN, former smoker prsents to the ER in respiratory distress and
altered. Patient was placed on BiPAP upon arrival to the ER.History obtained from daughter and at bedside. Patient was prescribed a BiPAP last admission in December. She does not like wearing it but wears 6 nights a week with one night off
per family. Over past two weeks she has had increased fatigue. Patient reports she has had increased sputum production. No nausea/vomiting/diarrhea. She has increased LE swelling per daughter and she hasn't taken her diuretic in 4 days. No
fevers.
Ms. Lucero Ramirez is a 74 yo woman with hx severe COPD (FEV1 22%), chronic hypoxic respiratory failure on home oxygen 3L rest; 4 with exertion, paroxysmal afib noticed hospitalization 12/2024, NEREYDA, anxiety/depression, essential HTN, former smoker
prsents to the ER in respiratory distress and altered. Patient was placed on BiPAP upon arrival to the ER.
Triage VS: P 116, RR 23, SpO2 80's on 4L, placed on BiPAP
LABS: WBC 12.4, Hg 12.5, PLT 249, Na 143, K+ 4.7, Cl 97, CO2 40, BUN 18, Cr 0.4, Glucose 131, Lactate 0.8, T. Bili 0.5, AST 31, ALT 24, Alk Phos 161, Trop 0.016, BNP 356
Blood gas: 7.16/> 115/ 179; --> 7.20/ 112/ 129
Severe COPD, Acute Exacerbation
Acute on Chronic Hypoxic and Hypercarbic Respiratory Failure
Chronic Hypoxic Respiratory Failure on 3L rest, 4 with exertion
Former smoker, quit in 2005 40 pack year history
-patient placed on BiPAP 18/5 in ER with mild improvement in ABG and improvement in mentation (arousable, nods yes or no)
-Continue BiPAP; but given improvement of mental status okay to take breaks during the day from BiPAP no longer than 2 hours.
-Continue to monitor in the ICU
-Influenza and COVID were negative
-CXR with hyperinflated lungs
-s/p IV Methylprednisolone 125mg in ER; continue Methylprednisolone 60mg IV BID
-standing duonebs and PRN
-Inhaled corticosteroids
-IV Cefepime given severity of COPD and recent hospitalization
-patient is on daily prednisone, BiPAP qhs and Azithromycin at home
Metabolic Alkalosis, Likely from Respiratory Acidosis
-Continue Acetazolamide
-Avoid sedatives
-Aspiration precautions
Chronic lower extremity swelling likely due to some degree of cor pulmonale and hypovolemia/immobility
-Ultrasound for DVT check was negative
Left Upper Extremity Skin Tear
-Discussed with wound care nurse, consulted surgery
-Hold subq Lovenox (for DVT prophylaxis) for now
Paroxysmal Atrial Fibrillation noted admission 01/02
-Hold Diltiazem given hypotension
-Monitor magnesium and electrolytes
Rheumatoid Arthritis
-Takes Actemra/leflunomide at home
-Currently on hold
-At risk for septic shock if there is infection
Anxiety/Depression
NEREYDA - per daughter, patient had recent iron infusions
Essential HTN
-Now hypotensive, hold Diltiazem
Osteoporosis
DVT PPx: SCDs. Lovenox subQ on hold for now as per general surgery
FULL CODE
Hypotension and COPD Exacerbation needing monitoring in the ICU is a high risk encounter.
Anticipated Discharge: > 48 hours
Subjective/Interval History
-
Date of Service: February 15, 2025
Patient was seen and examined. Patient has been tolerating her BiPAP well.
Objective Data
-
Labs:
Laboratory Results
02/14/25 02/14/25 02/14/25
19:33 20:47 21:05
WBC Cancelled
Hgb Cancelled
Hct Cancelled
Plt Count Cancelled
PT Cancelled
INR Cancelled
APTT Cancelled
HCO3 45.0 H*
Sodium
Potassium
Chloride
Carbon Dioxide
BUN
Creatinine
Glucose
Calcium
02/14/25 02/14/25 02/15/25
22:34 23:25 03:23
WBC 7.7
Hgb 11.8 L
Hct 41.2
Plt Count 191 D
PT 13.5
INR 1.00
APTT 31.9
HCO3 Cancelled 45.9 H*
Sodium 142
Potassium 4.4
Chloride 95 L
Carbon Dioxide 42 H
BUN 21 H
Creatinine 0.6
Glucose 146 H
Calcium 9.5
Vital Signs:
Vital Signs
Temp Pulse Resp BP Pulse Ox
99.3 F 105 18 100/52 96
02/15/25 07:15 02/15/25 06:30 02/15/25 06:30 02/15/25 06:00 02/15/25 06:30
I&O
02/14/25 02/15/25 02/16/25
06:59 06:59 06:59
Intake Total 2.5 / 2.5
Output Total 810 / 810
Balance -807.5 / -807.5
[2025-02-15] MEDS: CARDIZEM CD PO (07:44)
[2025-02-15] MEDS: ZITHROMAX INFUSION 250 IV (07:45)
[2025-02-15] MEDS: PROTONIX IV 40 MG IV (07:45)
[2025-02-15] MEDS: MUCINEX PO (07:45)
[2025-02-15] MEDS: NSS (PRESERVATIVE FREE) 10 ML IV (07:45)
[2025-02-15] MEDS: DUONEB 3 ML INH ×4 (08:10→19:30)
[2025-02-15] MEDS: PULMICORT 0.5 MG INH ×2 (08:10→19:30)
--- NOTE | 2025-02-15 08:41 | VNURNOTE ---
Chart reviewed. Patient is current with [facility]. Will continue to follow hospital course and DC plans.
[2025-02-15] MEDS: CARDIZEM CD 120 MG PO (09:32)
[2025-02-15] MEDS: MUCINEX 1200 MG PO ×2 (09:32→20:42)
--- NOTE | 2025-02-15 10:45 | CON.INTV ---
Consultation
Consultation Request
Date/Time Consultation Requested: 02/16/2024
Date/Time Consultation Performed: 02/16/2024
Requesting Provider: Dr. Diallo
Performing Provider: Dr. Isidro Betancourt
Reason for Consultation: Acute hypercapnic respiratory failure-acute exacerbation of COPD
Medical History
-
History of Present Illness:
Patient is a 74-year-old female with known history of underlying severe COPD chronically on steroid, antibiotics and oxygen. Also has carried diagnosis of rheumatoid arthritis, paradoxical vocal cord dysfunction, osteoporosis and anemia who
presented to emergency room for worsening shortness of breath and lethargy. Found to have acute on chronic decompensated hypercapnic respiratory failure in the setting of acute exacerbation of COPD. Patient placed on noninvasive mechanical
ventilation-transferred to critical care.
Patient has been followed at [facility]-on maximal medical therapy. During last hospital admission in December she was discharged on noninvasive mechanical ventilation due to chronic hypercapnia. Patient has been trying her best.
Using it at least 5-6 times per week.
-
Came to the hospital 02/14/2025 with altered mental status and respiratory distress.
Patient has remained on maximal medical therapy.
She was not able to use BiPAP the last 24 hours prior to admission.
Family reports increased fatigue for the last week.
There was some report of increased phlegm production.
No hemoptysis,. No fevers or chills.
No nausea abdominal pain or diarrhea.
Patient has not taken her Lasix for the last 4 days.
-
Past Medical History: Reports Other (COPD-severe on chronic O2 4L. Chronic hypercapnic respiratory failure on BiPAP therapy since December 2024, migraines. Chronic lower extremity lymphedema. Anxiety. Osteoporosis.Rheumatoid Tritus. Anemia.
Hypertension. Prediabetes. . Hysterectomy. Right wrist surgery. Left tibial fracture surgery. Dental surgery. Cataract.)
Past Surgical History: Reports Other
Past Medical History
Past Medical History: Other (See assessment and plan)
Social History
Tobacco: Former Smoker (01-bmeg-euyv history quitting 2005)
Alcohol: None
Drug: None
Personal:
Living: With Family
Family History
Family History: Reviewed & Not Pertinent
Allergies / Home Medications
Allergies
Allergy/AdvReac Type Severity Reaction Status Date / Time
mannitol (From Reclast) Allergy Swelling Verified 12/23/24 12:28
water for injection,sterile Allergy Swelling Verified 12/23/24 12:28
(From Reclast)
zoledronic acid (From Allergy Swelling Verified 12/23/24 12:28
Reclast)
Home Medications
�Medication �Instructions �Recorded �Confirmed �Last Taken �Type
alendronate 70 mg tablet 70 mg PO MARTELL osteoporosis 06/27/23 02/14/25 12/18/24 History
arformoterol 15 mcg/2 mL solution 2 ml inhalation R BID 06/27/23 02/14/25 12/23/24 History
for nebulization (Brovana)
azithromycin 250 mg tablet 250 mg PO MOWEFR@1999 copd 06/27/23 02/14/25 12/21/24 History
budesonide 0.5 mg/2 mL suspension 0.5 mg inhalation R BID 06/27/23 02/14/25 12/23/24 History
for nebulization
cyclosporine 0.05 % eye drops in a 1 drp BOTH EYES BID dry eyes 06/27/23 02/14/25 12/23/24 History
dropperette (Restasis)
ipratropium 0.5 mg-albuterol 3 mg 3 ml inhalation R QID 06/27/23 02/14/25 12/23/24 History
(2.5 mg base)/3 mL nebulization
soln
ipratropium 20 mcg-albuterol 100 1 puff inhalation R BIDPRN PRN sob 06/27/23 02/14/25 1 Week Ago History
mcg/actuation mist for inhalation ~11/06/24
(Combivent Respimat)
leflunomide 10 mg tablet 20 mg PO HS rheumatoid arthritis 06/27/23 02/15/25 12/22/24 History
theophylline 200 mg 200 mg PO HS copd 06/27/23 02/14/25 12/22/24 History
capsule,extended release 24 hr
(Eugene-24)
tiotropium bromide 2.5 2 puff inhalation R HS copd 06/27/23 02/14/25 11/12/24 History
mcg/actuation mist for inhalation
(Spiriva Respimat)
tocilizumab 400 mg/20 mL (20 400 mg IV Q4W rheumatoid arthritis 06/27/23 02/14/25 Unknown History
mg/mL) intravenous solution
(Actemra)
valacyclovir 500 mg tablet 500 mg PO HS viral infection 06/27/23 02/14/25 12/22/24 History
cholecalciferol (vitamin D3) 25 25 mcg PO MOTUWETHFRSA Supplement 07/16/23 02/14/25 11/12/24 History
mcg (1,000 unit) tablet (Vitamin
D3)
spironolactone 25 mg tablet 25 mg PO DAILYPRN PRN blood 07/16/23 02/14/25 2 Days Ago History
pressure-when she remembers ~11/11/24
albuterol sulfate 90 mcg/actuation 2 puff inhalation R Q4HPRN PRN sob 11/13/24 02/14/25 11/12/24 History
aerosol inhaler
ascorbic acid (vitamin C) 1,000 mg 1,000 mg PO QPM 11/13/24 02/14/25 11/12/24 History
tablet (Vitamin C)
cyanocobalamin (vitamin B-12) 50 20 mcg PO MOWEFR@199911/13/24 02/15/25 12/21/24 History
mcg tablet
ensifentrine 3 mg/2.5 mL 2.5 ml inhalation R BID 11/13/24 02/15/25 12/23/24 History
suspension for nebulization
(Ohtuvayre)
prednisone 5 mg tablet 5 mg PO BID rheumatoid arthritis 11/13/24 02/14/25 12/23/24 History
sulfasalazine 500 mg tablet 500 mg PO BID 11/13/24 02/15/25 12/23/24 History
rimegepant 75 mg disintegrating 75 mg PO DAILYPRN PRN mirgraines 12/23/24 02/14/25 Unknown History
tablet (Nurtec ODT)
sertraline 25 mg tablet 25 mg PO HS 12/23/24 02/14/25 12/22/24 History
diltiazem HCl 120 mg 120 mg PO DAILY #30 caps 12/28/24 02/14/25 Unknown Rx
capsule,extended release 24 hr
B12 Active 20 mg PO DAILY 02/14/25 02/15/25 Unknown History
rhmvvuejfy-bhqF-rjix lacq samina 1XD PRN nail fungus 02/14/25 Unknown History
clotrimazole 10 mg concepción 10 mg mucous membrane TID PRN 02/14/25 02/15/25 Unknown History
thrush
gabapentin 100 mg TID PRN pain 02/14/25 02/15/25 Unknown History
iron sucrose 100 mg iron/5 mL 100 mg IV DAILY PRN ferritin level 02/14/25 02/15/25 Unknown History
intravenous solution less than 80
lidocaine 4 % topical patch 1 patch topical 02/14/25 Unknown History
(Blue-Emu Lidocaine Patch)
lidocaine-aloe vera 0.5 % topical 1 applic topical BID PRN pain 02/14/25 02/15/25 Unknown History
gel
minerals 1 tab PO DAILY 02/14/25 02/15/25 Unknown History
mupirocin PRN unknown 02/14/25 Unknown History
potassium chloride 10 mEq 10 meq PO BID 02/14/25 02/15/25 Unknown History
tablet,extended release
prednisolone acetate 1 % eye 2 drp ophthalmic (eye) BID PRN 02/14/25 02/15/25 Unknown History
drops,suspension unknown
torsemide 10 mg tablet 10 mg PO BID PRN fluid retention 02/14/25 02/15/25 Unknown History
triamcinolone acetonide PRN unknown 02/14/25 Unknown History
zinc 1 tab PO 02/14/25 Unknown History
Review of Systems
-
Unable to Obtain full review of systems at this time due to: Acuity
Vitals / Labs / Diagnostic Testing
Vital Signs
Temp Pulse Resp BP Pulse Ox
99.3 F 103 18 103/51 98
02/15/25 07:15 02/15/25 10:05 02/15/25 10:05 02/15/25 10:00 02/15/25 10:05
Lab Data
02/15/25 03:23
02/15/25 03:23
Laboratory Results
02/14/25 02/14/25 02/14/25
19:33 21:05 22:34
PT Cancelled
INR Cancelled
APTT Cancelled
pH 7.22 L Cancelled
pCO2 110 H* Cancelled
pO2 84 Cancelled
HCO3 45.0 H* Cancelled
O2 Delivery Level Cancelled
02/14/25 02/15/25
23:25 03:23
PT 13.5
INR 1.00
APTT 31.9
pH 7.32 L
pCO2 89 H*
pO2 72 L
HCO3 45.9 H*
O2 Delivery Level Room air 60
Microbiology
02/14/25 19:11 Nasal Swab Influenza Types A & B (WARNER) - Final
Negative for Influenza A & B, NAAT
Negative results must be combined with clinical observations
and patient history.
Nucleic Acid Amplification test (NAAT)performed on the
[employer] platform.
Diagnostic Testing:
Physical Exam
-
HEENT: Normocephalic and Other (Currently on BiPAP)
Cardiovascular: S1/S2
Respiratory: Other (Prolonged expiratory phase)
GI: Soft and Non Distended
Neurology: Other (Sleeping but arousable. Able to move 4 extremities.)
Skin: Other (Left upper extremity skin tear-)
General: Comfortable (On BiPAP therapy)
Assessment
-
74 woman with past medical history of advanced COPD. Known to our service from previous admissions. Readmitted with acute hypercapnic respiratory failure due to acute exacerbation of COPD. Placed on BiPAP therapy and transferred to the critical
care unit for further care. We were consulted 02/14/2025.
Dr. Betancourt discussed the case overnight with emergency room, hospitalist and also respiratory therapist for guidance.
Acute on chronic hypercapnic respiratory failure due to acute exacerbation of advanced COPD.
ABG 7.22/110/84 02/14/2025
Chest x-ray 02/14/2025: Hyperinflation. No acute infiltrates.
proBNP 350
Negative cardiac troponin
Leukocytosis: Possibly from steroids.
? Increased phlegm production-perhaps tracheobronchitis.
-
Conditions present prior admission:
Advanced COPD: 4 L nasal cannula, noninvasive mechanical ventilation-chronic hypoxemic and hypercapnic respiratory failure
Up until recently followed at [facility]- Dr. Shi
More recently after discharge in December following locally at [facility]- To see Dr. Mtz 02/15/2025
Rheumatoid arthritis
Chronic anemia
Hypertension
Anxiety
Osteoporosis
Assessment and plan:
Patient is critically ill: Currently on BiPAP therapy
Patient has advanced COPD, poor quality of life, frequent exacerbations-FEV1 around 22%.
Unclear trigger for her acute exacerbation.
patient has very limited cardiopulmonary reserve.
-
Continue management for acute exacerbation of COPD:
Agree with methylprednisolone 60 mg IV every 12
Given increased phlegm production: Started on cefepime/azithromycin as the patient was recently in the hospital.
Will obtain a sputum culture if able
Continue nebulizer therapy: Budesonide twice a day, DuoNebs 4 times a day
-
Patient did receive 1 dose of Lasix in the emergency room-hold for now. Did not suspect patient is significant volume overloaded.
Does have chronic lower extremity swelling likely due to some degree of cor pulmonale and hypovolemia/immobility.
-
Acute on chronic hypercapnic respiratory failure, change in mental status.
Last ABG 02/14/2025 at 23 25-7.32/89/72. Improved.
Overall since admission mental status has improved.
Still not back to baseline
Again, patient has significant muscle mass loss and debilitation. High risk for progressing to intubation. Family aware.
I explained to him that as long as she is maintaining mental status, has a cough effort and is hemodynamically stable we will continue with BiPAP--try to avoid intubation as the patient has very poor cardiopulmonary reserve and significant muscle
mass loss that I think she would not do well on mechanical ventilation. Unlikely to be able to be weaned off without tracheotomy.
BiPAP has been titrated by me increased to 22/10-backup pressure 14-> she seems to be tolerating
Repeat ABG in an hour.
Given improvement of mental status okay to take breaks during the day from BiPAP no longer than 2 hours.
-
Given significant metabolic alkalosis: Start acetazolamide for the next 3 days.
Hopefully this will be helpful with respiratory drive.
Avoid sedatives
Aspiration precautions
-
Left upper extremity skin tear: Wound care has been consulted.
-
-
Rheumatoid arthritis chronic immunosuppression: Actemra/leflunomide.
Currently on hold
At risk for septic shock if there is infection
-
N.p.o. for now
Anxiety/depression: May use benzodiazepine as needed if necessary.
Head of the bed elevation
Discussed with family malnutrition risk as the patient has no significant reserve.
-
Will need to reassess for diet in the next 24 to 48 hours depending on clinical situation.
-

Previous correspondence reviewed: Used to follow-up at [facility] (recently. More recently following locally at [facility]-Will be seeing Dr. Mtz or Dr. Gill in the outpatient
Outpatient COPD regimen includes: Low-dose theophylline
Azithromycin for anti-inflammatory properties
Brovana/budesonide nebulizers
Ipratropium/albuterol nebulizers as needed
Ohtuvayre
Spiriva
On chronic low-dose prednisone therapy
-
Multiple times it has been discussed with family and patient regarding goals of care. For now full code.
They understand that this patient likely will not do well on mechanical ventilation and likely if intubated will have difficulty weaning off from mechanical ventilation.
-
Critical care statement: A total of 40 minutes of critical care time was provided for this patient today. This includes management of unstable vital signs, evaluation of the patient at bedside, reviewing the patient's pertinent medical records
including ventilator settings, arterial blood gases, radiographs, microbiology, laboratory evaluations and discussion with primary team, critical care nursing, and respiratory therapy.
--- NOTE | 2025-02-15 11:14 | CM ---
Initial assessment completed with patient and daughter. Patient lives with her in a 2nd floor apartment in elevator building, no steps to enter building. 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 DME: O2
concentrator, large tank, portable O2 device. O2 is continuous at 3-4L. Also has a RW, w/c and Bipap. [employer] supplies the O2 and [employer] supplied the Bipap. Patient is on service with [facility], PT/OT services. No HC-POA. No VA benefits. No
psychiatric hospitalizations. PCP is Dr. Odalis Maldonado. Pharmacy is [facility] in [place]. Discharge POC: Anticipate home with resumption of [facility] RN, PT/OT services.
--- NOTE | 2025-02-15 12:33 | PTCARENOTE ---
Pt AAOx3. Sinus rhythm with frequent PACs. Took a break from BiPAP from [id number]. SpO2 95-98% on 4L NC at that time. Mouth care provided. Lemons draining dunia urine. Left arm skin tear bleeding. Dressing reinforced. TT WOC and pt to be seen
shortly. All other assessments unchanged. Daughter at bedside.
[2025-02-15] MEDS: LIDOCAINE 4% PATCH 1 PATCH TOPICAL (12:54)
[2025-02-15] MEDS: TORADOL 15 MG IV (12:54)
--- NOTE | 2025-02-15 13:30 | WOUNDNOTE ---
[facility] RN NOTE: Reviewed chart and met with patient and daughter. Patient has left arm skin tear that daughter states occurred at some point between leaving her home and arriving in ICU. Xeroform had been appropriately applied to skin tear last night,
but due to active bleeding and depth of wound, the Xeroform was adherent. Xeroform was saturated with saline, but continued to bleed during attempted removal. Spoke to Dr. Comer and plan is for surgical consult to address wound. Patient was just
repositioned and on bi-pap so she was not turned at time of assessment. Per admission documentation patient has stage 1 to spine which and silicone foam has been applied. Patient also has skin tear on upper left arm that daughter said occurred at
home. Per daughter, the family cleaned the skin tear and applied steri strips which are currently clean and intact. Bilateral LE with venous stasis changes, intact heels. Will continue to follow during in-patient stay.
[2025-02-15 14:13] LABS: B.E. 10.6 mmol/L; HCO3 38.8 mmol/L (21-28); O2 Saturation % 98.9 % (94-98); PO2 87 mmHg (83-108)
[2025-02-15 14:16] LABS: PCO2 72 mmHg (32-35)
--- NOTE | 2025-02-15 14:16 | WOUNDNOTE ---
LEFT UPPER ARM( 1950, M#[id number])
[2025-02-15] MEDS: LR 500 IV (15:09)
--- NOTE | 2025-02-15 15:17 | CON.GS ---
Consultation
-
Date/Time Consultation Performed: 02/15/25
Requesting Provider: Souleymane
Performing Provider: Adilene
Reason for Consultation: LUE skin tear with bleeding
Medical History
-
Chief Complaint: LUE skin tear
History of Present Illness:
74F admitted for COPD exacerbation with c/o LUE skin tear. Pt believes it occurred in the ambulance on the way to the hospital. Today the dressing has been saturated and required changing x2. She is not on blood thinners at home but is on lovenox
ppx here. She has a hx of skin tears.
Past Medical History
Past Medical History: Other (COPD-severe on chronic O2. Migraines. Chronic lower extremity lymphedema. Anxiety. Osteoporosis. Rheumatoid Tritus. Anemia. Hypertension. Prediabetes)
Past Surgical History: Other (. Hysterectomy. Right wrist surgery. Left tibial fracture surgery. Dental surgery. Cataract)
Social History
Tobacco: Former Smoker
Alcohol: None
Drug: None
Personal:
Living: With Family
Family History
Family History: Reviewed & Noncontributory
Allergies / Home Medications
Allergy/AdvReac Type Severity Reaction Status Date / Time
mannitol (From Reclast) Allergy Swelling Verified 12/23/24 12:28
zoledronic acid (From Allergy Swelling Verified 12/23/24 12:28
Reclast)
�Medication �Instructions �Recorded �Confirmed �Type
alendronate 70 mg tablet 70 mg PO MARTELL osteoporosis 06/27/23 02/14/25 History
arformoterol 15 mcg/2 mL solution 2 ml inhalation R BID 06/27/23 02/14/25 History
for nebulization (Brovana) Lung/Breathing Issues
azithromycin 250 mg tablet 250 mg PO MOWEFR@1999 copd 06/27/23 02/14/25 History
budesonide 0.5 mg/2 mL suspension 0.5 mg inhalation R BID 06/27/23 02/14/25 History
for nebulization Lung/Breathing Issues
cyclosporine 0.05 % eye drops in a 1 drp BOTH EYES BID dry eyes 06/27/23 02/14/25 History
dropperette (Restasis)
ipratropium 0.5 mg-albuterol 3 mg 3 ml inhalation R QID 06/27/23 02/14/25 History
(2.5 mg base)/3 mL nebulization Lung/Breathing Issues
soln
ipratropium 20 mcg-albuterol 100 1 puff inhalation R BIDPRN PRN sob 06/27/23 02/14/25 History
mcg/actuation mist for inhalation
(Combivent Respimat)
leflunomide 10 mg tablet 20 mg PO HS rheumatoid arthritis 06/27/23 02/15/25 History
theophylline 200 mg 200 mg PO HS copd 06/27/23 02/14/25 History
capsule,extended release 24 hr
(Eugene-24)
tiotropium bromide 2.5 2 puff inhalation R HS copd 06/27/23 02/14/25 History
mcg/actuation mist for inhalation
(Spiriva Respimat)
tocilizumab 400 mg/20 mL (20 400 mg IV Q4W rheumatoid arthritis 06/27/23 02/14/25 History
mg/mL) intravenous solution
(Actemra)
valacyclovir 500 mg tablet 500 mg PO HS viral infection 06/27/23 02/14/25 History
cholecalciferol (vitamin D3) 25 25 mcg PO MOTUWETHFRSA Supplement 07/16/23 02/14/25 History
mcg (1,000 unit) tablet (Vitamin
D3)
spironolactone 25 mg tablet 25 mg PO DAILYPRN PRN blood 07/16/23 02/14/25 History
pressure-when she remembers
albuterol sulfate 90 mcg/actuation 2 puff inhalation R Q4HPRN PRN sob 11/13/24 02/14/25 History
aerosol inhaler
ascorbic acid (vitamin C) 1,000 mg 1,000 mg PO QPM Supplement 11/13/24 02/14/25 History
tablet (Vitamin C)
cyanocobalamin (vitamin B-12) 50 20 mcg PO MOWEFR@2000 Supplement 11/13/24 02/15/25 History
mcg tablet
ensifentrine 3 mg/2.5 mL 2.5 ml inhalation R BID 11/13/24 02/15/25 History
suspension for nebulization Lung/Breathing Issues
(Ohtuvayre)
prednisone 5 mg tablet 5 mg PO BID rheumatoid arthritis 11/13/24 02/14/25 History
sulfasalazine 500 mg tablet 500 mg PO BID RHEUMATOID ARTHRITIS 11/13/24 02/15/25 History
rimegepant 75 mg disintegrating 75 mg PO DAILYPRN PRN mirgraines 12/23/24 02/14/25 History
tablet (Nurtec ODT)
sertraline 25 mg tablet 25 mg PO HS Mental Health/Anxiety 12/23/24 02/14/25 History
diltiazem HCl 120 mg 120 mg PO DAILY #30 caps 12/28/24 02/14/25 Rx
capsule,extended release 24 hr
B12 Active 20 mg PO DAILY Supplement 02/14/25 02/15/25 History
rpewbivwaa-tmtM-joum lacq samina 1XD PRN nail fungus 02/14/25 History
clotrimazole 10 mg concepción 10 mg mucous membrane TID PRN 02/14/25 02/15/25 History
thrush
gabapentin 100 mg TID PRN pain 02/14/25 02/15/25 History
iron sucrose 100 mg iron/5 mL 100 mg IV DAILY PRN ferritin level 02/14/25 02/15/25 History
intravenous solution less than 80
lidocaine 4 % topical patch 1 patch topical Pain 02/14/25 History
(Blue-Emu Lidocaine Patch)
lidocaine-aloe vera 0.5 % topical 1 applic topical BID PRN pain 02/14/25 02/15/25 History
gel
minerals 1 tab PO DAILY Supplement 02/14/25 02/15/25 History
mupirocin PRN SKIN ISSUES 02/14/25 History
potassium chloride 10 mEq 10 meq PO BID Electrolyte Repletion 02/14/25 02/15/25 History
tablet,extended release
prednisolone acetate 1 % eye 2 drp ophthalmic (eye) BID PRN EYE 02/14/25 02/15/25 History
drops,suspension
torsemide 10 mg tablet 10 mg PO BID PRN fluid retention 02/14/25 02/15/25 History
triamcinolone acetonide PRN SKIN ISSUES 02/14/25 History
zinc 1 tab PO Supplement 02/14/25 History
Review of Systems
-
A 10 point review of systems was completed, and was negative except as per HPI.
Physical Exam
Vital Signs
Temp Pulse Resp BP Pulse Ox
98.9 F 81 19 83/51 98
02/15/25 11:10 02/15/25 14:20 02/15/25 14:20 02/15/25 14:13 02/15/25 14:15
02/14/25 02/15/25 02/16/25
06:59 06:59 06:59
Actual Weight 42.5 kg
Body Mass Index (BMI) 19.6
Lab Results
02/15/25 03:23
02/15/25 03:23
WBC 7.7 10^3/uL (4.8-10.8) 02/15/25 03:23
Hgb 11.8 g/dL (12.0-16.0) L 02/15/25 03:23
Hct 41.2 % (37.0-47.0) 02/15/25 03:23
Plt Count 191 10^3/uL (130-400) D 02/15/25 03:23
Abs Immat Gran (auto) 0.0 10^3/uL (0-0.05) 02/15/25 03:23
Neutrophils % 95.4 % (42.2-75.2) H 02/15/25 03:23
Physical Exam
General: Well Developed, Well Nourished and No Apparent Distress
HEENT: Normocephalic and Anicteric
Skin: Other (LUE superficial skin tear, tiny bleeding punctum at superior aspect)
Neuro: AO x 3
Psych: Calm
Data Reviewed
-
Old Records: Reviewed
Assessment / Plan
-
74F with LUE superficial skin tear with bleeding
No pulsatile bleeding, very small puncta with slow ooze
Adaptic placed over skin tear and single abd pad, fer compression wrap placed. Radial pulse palpated, motor and sensation intact after fer wrap placed.
Rec hold ppx lovenox until 02/17.
Maintain gentle compression for now
--- NOTE | 2025-02-15 15:17 | W.PN.UPDATE ---
Update Note
Progress Note Update
Pt seen and evaluated at bedside. LUE dressing removed. Skin tear noted. One tiny area of punctate ooze noted to the superior aspect. dressing replaced with adaptic, abd pad and fer wrap with gentle compression. LUE monitored for several minutes, no
change in temp, radial pulse palpable, pt denies parasthesias. Advised to exercise the hand to maintain circulation with radio presenter exercises. Loosen fer wrap as needed if parasthesias develop. Hold lovenox for 24 hrs, can restart Thursday if no further
bleeding. Full consult note to follow.
--- NOTE | 2025-02-15 16:21 | PTCARENOTE ---
2hr break from BiPAP again this afternoon. Pt tolerated well. SpO2 98-100% on 4L NC. Back on BiPAP at this time.
BP 80-90s/40-50s. 500ml bolus LR given per order.
All other assessments unchanged.
[2025-02-15] MEDS: REMOVE LIDOCAINE PATCH 1 PATCH REMOVE (20:43)
[2025-02-15] MEDS: VALTREX 500 MG PO (20:52)
[2025-02-15] MEDS: ZOLOFT 25 MG PO (20:52)
[2025-02-16] VITALS (24 sets, daily range): BP systolic 88–120; BP diastolic 47–91; PULSE 2–107; BMI 19.2
--- NOTE | 2025-02-16 00:21 | PTCARENOTE ---
Bipap now in in place 30/12 with 2 LO2. Pt resting comfortably. Daughter and at bedside. no issues to report. No other changes in assessment noted at this time. will continue to monitor.
[2025-02-16 04:30] LABS: Venous Blood Gas B.E. 9.3 mmol/L (-4 to +4); Venous Blood Gas O2 Sat % 99.9 %
--- NOTE | 2025-02-16 04:30 | PTCARENOTE ---
Pt sleeping well overnight. Pt maintaining Bipap 22/8 with 2 LO2. NO issues to report. Vital signs stable. [facility] bath provided. Pt positioned per comfort. Call colon in reach. and daughter remain at bedside. All questions answered. Will
continue to monitor.
[2025-02-16 05:02] LABS: Blood Urea Nitrogen 46 mg/dl (7-17); Calcium 9.5 mg/dl (8.4-10.2); Carbon Dioxide 37 mmol/L (22-30); Chloride 97 mmol/L (98-107); Estimated Creatinine Clearance 32 ml/min; Glucose 163 mg/dl (70-99); Magnesium 2.4 mg/dl (1.6-2.3); Potassium 3.7 mmol/L (3.5-5.1); Sodium 137 mmol/L (135-145); eGFR 59.49
[2025-02-16 05:15] LABS: Hematocrit 32.5 % (37.0-47.0); Hemoglobin 9.9 g/dL (12.0-16.0); Mean Corp Hgb Conc. 30.5 g/dL (33.0-37.0); Mean Corpuscular Volume 88.6 fL (81.0-99.0); Platelet Count 186 10^3/uL (130-400); Red Cell Dist. Width 22.5 % (11.5-14.5)
[2025-02-16] MEDS: STERILE WATER FOR INJECTION 10 ML IV ×3 (05:20→21:29)
[2025-02-16] MEDS: DIAMOX 2.5 MG IV ×2 (05:20→14:04)
[2025-02-16] MEDS: MAXIPIME 2000 MG IV (05:20)
[2025-02-16] MEDS: SOLU-MEDROL PF 60 MG IV (05:21)
[2025-02-16] MEDS: LIDOCAINE 4% PATCH 1 PATCH TOPICAL (07:40)
[2025-02-16] MEDS: MUCINEX 1200 MG PO ×2 (07:40→21:30)
[2025-02-16] MEDS: ZITHROMAX INFUSION 250 IV (07:40)
[2025-02-16] MEDS: NSS (PRESERVATIVE FREE) 10 ML IV (07:41)
[2025-02-16] MEDS: PROTONIX IV 40 MG IV (07:41)
--- NOTE | 2025-02-16 08:17 | W.PN.HOSP.TC ---
Today's Communication/Plan
-
See plan
Assessment / Plan
Assessment / Plan
Physical Exam
General: Not in acute distress
HEENT: Normocephalic
Respiratory: Scattered wheezing bilaterally
Cardiac: S1/S2 and Regular Rhythm
GI: Soft and Non Tender. Positive bowel sounds.
Musculoskeletal: Other (LLE swelling slightly larger than right )
Skin: Warm and Dry
Neuro: AAO x 3
Psych: Calm
Assessment/Plan
74 yo female with hx severe COPD (FEV1 22%), chronic hypoxic respiratory failure on home oxygen 4L, paroxysmal afib noticed hospitalization 12/2024, NEREYDA, anxiety/depression, essential HTN, former smoker prsents to the ER in respiratory distress and
altered. Patient was placed on BiPAP upon arrival to the ER.History obtained from daughter and at bedside. Patient was prescribed a BiPAP last admission in December. She does not like wearing it but wears 6 nights a week with one night off
per family. Over past two weeks she has had increased fatigue. Patient reports she has had increased sputum production. No nausea/vomiting/diarrhea. She has increased LE swelling per daughter and she hasn't taken her diuretic in 4 days. No
fevers.
74 yo female with hx severe COPD (FEV1 22%), chronic hypoxic respiratory failure on home oxygen 3L rest; 4 with exertion, paroxysmal afib noticed hospitalization 12/2024, NEREYDA, anxiety/depression, essential HTN, former smoker prsents to the ER in
respiratory distress and altered. Patient was placed on BiPAP upon arrival to the ER.
Triage VS: P 116, RR 23, SpO2 80's on 4L, placed on BiPAP
LABS: WBC 12.4, Hg 12.5, PLT 249, Na 143, K+ 4.7, Cl 97, CO2 40, BUN 18, Cr 0.4, Glucose 131, Lactate 0.8, T. Bili 0.5, AST 31, ALT 24, Alk Phos 161, Trop 0.016, BNP 356
Blood gas: 7.16/> 115/ 179; --> 7.20/ 112/ 129
Severe COPD, Acute Exacerbation
Acute on Chronic Hypoxic and Hypercarbic Respiratory Failure
Chronic Hypoxic Respiratory Failure on 3L rest, 4 with exertion
Former smoker, quit in 2005 40 pack year history
-Mental status back to baseline as of 02/16/25
-Patient has advanced COPD, poor quality of life, frequent exacerbations-FEV1 around 22% -- has very limited cardiopulmonary reserve
-Improved significantly with BiPAP. Continue BiPAP settings 01/03; backup pressure of 14. Seems to be tolerating okay.; but given improvement of mental status okay to take
breaks during the day from BiPAP no longer than 2-3 hours.
-Influenza and COVID were negative
-CXR with hyperinflated lungs
-s/p IV Methylprednisolone 125mg in ER; continue IV Methylprednisolone --> reduced from 60 mg IV Q12H to 40 mg IV Q12H
-standing duonebs nebulizer and PRN
-Inhaled corticosteroids
-IV Cefepime given severity of COPD and recent hospitalization.
-Continue Azithromycin daily to complete 7 days of daily dose, thereafter, transition to home dose.
-patient is on daily prednisone, BiPAP qhs and Azithromycin at home
Metabolic Alkalosis, Likely from Respiratory Acidosis
-Continue Acetazolamide -- last day today
-Avoid sedatives
-Aspiration precautions
Chronic lower extremity swelling likely due to some degree of cor pulmonale and hypovolemia/immobility
-Ultrasound for DVT check was negative
Left Upper Extremity Skin Tear
-Discussed with wound care nurse, consulted surgery
-Surgeon re-applied dressing today; if rebleeding occurs then would place Surgicel gauze over tiny punctum of bleeding at superior aspect
-Elevated hand above heart for swelling
-Continue to hold subq Lovenox (for DVT prophylaxis) for now and restart tomorrow if no further issues
Paroxysmal Atrial Fibrillation noted admission 01/02/25
-Given hypotension, and outpatient fatigue, home Diltiazem changed to 30 mg BID -- patient needs the Cardizem since would not tolerate rapid A-Fib well
-Appreciate cardio
-No Amiodarone or beta tom given pulmonary issues
-Monitor magnesium and electrolytes
Rheumatoid Arthritis
-Takes Actemra/leflunomide at home
-Currently on hold
-At risk for septic shock if there is infection
Anxiety/Depression
NEREYDA - per daughter, patient had recent iron infusions. Monitor Hgb.
Essential HTN
-Blood pressures have been low, but still need to continue Diltiazem as above
Osteoporosis
DVT PPx: SCDs. Lovenox subQ on hold for now as per general surgery
FULL CODE
Low blood pressures still needing Cardizem and also BiPAP for COPD exacerbation is a high risk encounter
On 02/16/25, I spoke extensively with patient's daughter and , and I answered all of their questions and concerns to satisfaction.
Anticipated Discharge: > 48 hours
Subjective/Interval History
-
Date of Service: February 16, 2025
Patient was seen and examined. She appeared to be doing a little better today.
Objective Data
-
Labs:
Laboratory Results
02/16/25
04:23
WBC 10.9 H
Hgb 9.9 L
Hct 32.5 L
Plt Count 186
Sodium 137
Potassium 3.7
Chloride 97 L
Carbon Dioxide 37 H
BUN 46 H
Creatinine 1.0
Glucose 163 H
Calcium 9.5
Vital Signs:
Vital Signs
Temp Pulse Resp BP Pulse Ox
98.9 F 98 22 105/91 94
02/16/25 04:09 02/16/25 08:00 02/16/25 08:00 02/16/25 08:00 02/16/25 08:00
I&O
02/15/25 02/16/25 02/17/25
06:59 06:59 06:59
Intake Total 2.5 / 2.5 960 / 960
Output Total 810 / 810 830 / 830
Balance -807.5 / -807.5 130 / 130 -20 / -20
[2025-02-16] MEDS: PULMICORT 0.5 MG INH ×2 (08:25→20:25)
[2025-02-16] MEDS: DUONEB 3 ML INH ×4 (08:25→20:24)
--- NOTE | 2025-02-16 08:49 | PTCARENOTE ---
Bipap removed and 4L NC applied. SpO2 99%. Pt resting comfortably. Daughter and at bedside. Daughter again expresses concern about LUE skin tear and subsequent swelling/redness possibly related to dressing. Pt reports no numbness/tingling,
moves all fingers, palpable pulse. Hospitalist to bedside and aware. Request for surgery to reevaluste made by Hospitalist. No other changes in assessment noted at this time. will continue to monitor.
[2025-02-16] MEDS: TYLENOL 650 MG PO (08:57)
--- NOTE | 2025-02-16 10:01 | W.PN.UPDATE ---
Update Note
Progress Note Update
Pt seen and evaluated at bedside. LUE dressing removed. Dressing with strikethrough but no saturation, no dressing changes required since yesterday. Right hand swelling noted. Good motor function and sensation intact. Dressing reapplied with minimal
compression. Rec cont hold lovenox today. Restart tomorrow if no further issues. If rebleeding occurs would place surgicel gauze over tiny punctum of bleeding at superior aspect. Rec elevating hand above heart for swelling. Pls call with ?s
--- NOTE | 2025-02-16 10:27 | PTCARENOTE ---
Pt assisted OOB to chair with Min assistance, rolling walker. Lemons cath removed. Pt changed to IMU level of care
--- NOTE | 2025-02-16 10:57 | W.PN.INTV ---
Today's Communication / Plan
Recommendations
Continue nebulizer regimen
Continue BiPAP at the current settings-May take longer breaks as mental status has improved. VBG normalized
Avoid sedatives
Zithromax transition to oral
Continue cefepime for today
Will consider transition to oral antibiotics in the next 24 hours
Incentive spirometry
Physical therapy
Occupational Therapy
Advance diet
Continue IV corticosteroids at the current dose today-hopefully can continue to decrease as she improves clinically
Multiple discussions with family at the bedside. and daughter.
Continue left upper extremity local wound care
Restart Lovenox tomorrow
-
Transfer to intermediate care unit
Pulmonary will follow
Assessment
-
74 woman with past medical history of advanced COPD. Known to our service from previous admissions. Readmitted with acute hypercapnic respiratory failure due to acute exacerbation of COPD. Placed on BiPAP therapy and transferred to the critical
care unit for further care. We were consulted 02/14/2025.
Dr. Betancourt discussed the case overnight with emergency room, hospitalist and also respiratory therapist for guidance.
Acute on chronic hypercapnic respiratory failure due to acute exacerbation of advanced COPD.
ABG 7.22/110/84 02/14/2025
Chest x-ray 02/14/2025: Hyperinflation. No acute infiltrates.
proBNP 350
Negative cardiac troponin
Leukocytosis: Possibly from steroids.
? Increased phlegm production-perhaps tracheobronchitis.
-
Conditions present prior admission:
Advanced COPD: 4 L nasal cannula, noninvasive mechanical ventilation-chronic hypoxemic and hypercapnic respiratory failure
Up until recently followed at [facility]- Dr. Shi
More recently after discharge in December following locally at [facility]- To see Dr. Mtz 02/15/2025
Rheumatoid arthritis
Chronic anemia
Hypertension
Anxiety
Osteoporosis
Assessment and plan:
Clinically improved: Mental status back to baseline.
VBG 02/16/2025: 7.30 7/63/148 (baseline)
Oxygen supplementation between 3 and 5 L-suspect baseline.
Lung exam: Better air movement, still with expiratory wheezing.
Patient has advanced COPD, poor quality of life, frequent exacerbations-FEV1 around 22%.
Unclear trigger for her acute exacerbation.
patient has very limited cardiopulmonary reserve.
-
Continue management for acute exacerbation of COPD:
Reduce methylprednisolone to 40 mg IV every 12. Eventual prednisone taper down to her baseline.
Given increased phlegm production: Started on cefepime/azithromycin as the patient was recently in the hospital.
Transition azithromycin to p.o. today 02/16/2025 complete total of 7 days
Will consider narrow down antibiotics tomorrow if all cultures remain negative. 5 to 7-day course.
Will obtain a sputum culture if able- Has not been able to produce
Negative influenza/negative blood cultures
Negative COVID
Negative MRSA screening in the past.
Continue nebulizer therapy: Budesonide twice a day, DuoNebs 4 times a day
-
Patient did receive 1 dose of Lasix in the emergency room-hold for now. Did not suspect patient is significant volume overloaded.
Does have chronic lower extremity swelling likely due to some degree of cor pulmonale and hypoalbuminemia/immobility.
-
Acute on chronic hypercapnic respiratory failure, change in mental status-improved back to baseline.
Last ABG 02/14/2025 at 23 25-7.32/89/72.
VBG 02/16/2025-improved back to baseline.
-
Again, patient has significant muscle mass loss and debilitation. High risk for progressing to intubation. Family aware.
Will try to avoid sedatives.
Continue BiPAP settings 01/03. Backup pressure of 14. Seems to be tolerating okay.
Will need to repeat ABG prior to discharge. Try to limit daily arterial sampling-as clinically she is improving.
-
Will continue BiPAP during the day intermittently, continue at bedtime.
-
Given significant metabolic alkalosis: Complete acetazolamide today 02/16/2025.
Bicarbonate today 02/17/2020 2537.
Avoid sedatives
Aspiration precautions
-
Left upper arm skin laceration: Unclear whether it was [facility] emergency room.
Continue wound care.
Surgery following-continue local care
Lovenox on hold as patient was bleeding. Will restart tomorrow if stable 02/17/2025 per
-
Rheumatoid arthritis chronic immunosuppression: Actemra/leflunomide.
Currently on hold
At risk for septic shock if there is infection
-
Anxiety/depression: May use benzodiazepine as needed if necessary.
-
Head of the bed elevation
Discussed with family malnutrition risk as the patient has no significant reserve.
Start diet today 02/16/2025-mental status back to base
Continue with aspiration precaution
-
Transfer to intermediate care unit.
-

Previous correspondence reviewed: Used to follow-up at [facility] (recently. More recently following locally at [facility]-Will be seeing Dr. Mtz or Dr. Guevara in the outpatient
Outpatient COPD regimen includes: Low-dose theophylline
Azithromycin for anti-inflammatory properties
Brovana/budesonide nebulizers
Ipratropium/albuterol nebulizers as needed
Ohtuvayre
Spiriva
On chronic low-dose prednisone therapy
Started on noninvasive mechanical ventilation last admission 12/2024. Has been using 5 to 6 days/week.
-
Multiple times it has been discussed with family and patient regarding goals of care.
For now full code.
They understand that this patient likely will not do well on mechanical ventilation and likely if intubated will have difficulty weaning off from mechanical ventilation.
-
Transfer to intermediate care unit.
Pulmonary will continue to follow
Subjective Dataa
Subjective Data
Date of Service:
Date of Service: February 16, 2025
Chief Complaint: [employer]ating [employer]or Follow Up (Acute hypercapnic respiratory failure-acute exacerbation of COPD)
Subjective:
This morning patient feels better-still feels debilitated.
Still short of breath with activity
Denies increased phlegm production or hemoptysis
Has been tolerating BiPAP at higher pressures.
Review of Systems
Cardiopulmonary: Dyspnea, Dyspnea on Exertion, Cough, Sputum Production (n) and Wheezing
GI: Abdominal Pain (n), Nausea (n) and Vomiting (n)
Objective Data
Data Reviewed
Vital Signs / I&O / Oxygen:
Vital Signs
Temp Pulse Resp BP Pulse Ox
98.1 F 87 18 90/47 97
02/16/25 08:00 02/16/25 10:15 02/16/25 10:15 02/16/25 10:00 02/16/25 10:00
Intake and Output
02/15/25 02/16/25 02/17/25
06:59 06:59 06:59
Intake Total 2.5 / 2.5 960 / 960
Output Total 810 / 810 830 / 830 130 / 130
Balance -807.5 / -807.5 130 / 130 -130 / -130
SaO2 97
Nasal Cannula flow liters per 4
minute
Physical Exam
General: Comfortable
HEENT: Normocephalic
Cardiovascular: S1-S2
Respiratory: Other (Forced expiratory wheezing bilateral, overall better movement of air) and Other (Prolonged expiratory phase bilaterally)
GI: Soft and Non Distended
Neurology: Awake, Alert and No Motor Deficits
Skin: Other (Left upper extremity dressed, hand edema. Good capillary refills. Able to make a fist without pain.)
Labs/Micro/Reports
Lab Data
02/16/25 04:23
02/16/25 04:23
Laboratory Results
02/15/25
14:01
pH 7.34 L
pCO2 72 H*
pO2 87
HCO3 38.8 H
O2 Delivery Level
Microbiology
02/14/25 18:35 Blood/Venous Blood Culture - Preliminary
No Growth in 24 hours- Final report to follow
02/14/25 18:22 Blood/Venous Blood Culture - Preliminary
No Growth in 24 hours- Final report to follow
02/14/25 19:11 Nasal Swab Influenza Types A & B (WARNER) - Final
Negative for Influenza A & B, NAAT
Negative results must be combined with clinical observations
and patient history.
Nucleic Acid Amplification test (NAAT)performed on the
[employer] platform.
--- NOTE | 2025-02-16 11:11 | CON.CAR ---
Addendum entered and electronically signed by Mike Bender MD 02/16/25 17:39:
I saw and examined the patient.
The Composition Worker's note was reviewed and I agree with the note.
Comment:
GEN: No distress, awake, Ox3
HEENT: supple, anicteric, mmm
LUNGS: bilat wheeze/rhonchi
CV: Reg, S1/S2, 1/6 syst LSB, no gallop
ABD: soft, BS+, NT/ND
EXT: No edema
NEURO: Gross non-focal
SKIN: No rash
PLan:
74-year-old female with end-stage advanced COPD, home oxygen, rheumatoid arthritis, paroxysmal atrial fibrillation presents to outside hospital with COPD exacerbation. Patient was evaluated when his last admission in [facility] for similar
complaints. At that point she had atrial flutter with rapid ventricular rate was placed on diltiazem 120 mg daily. She was not anticoagulated due to frailty and high risk of chronic bleeding. She did not follow-up with [facility] cardiology where a
2-week monitor was placed. She then returned with falls fatigue and some hypotension. She be treated again for COPD exacerbation.
Patient blood pressure remains on the low side but overall acceptable. I do lengthy discussion with the patient and her daughter. We agreed to initiate diltiazem 30 mg p.o. every 12 and follow her heart rate and blood pressure.
Continue Solu-Medrol, azithromycin, cefepime, and budesonide.
Echo from November 2024 has a preserved ejection fraction with no significant valvular disease.
I agree with DNR based on her advanced lung disease. The family has declined anticoagulation due to frailty, falls and chronic steroid use.
Hemoglobin at 9.9
Original Note:
Consultation
Consultation Request
Date/Time Consultation Performed: 02/16/25
Requesting Provider: Dr. Comer
Performing Provider: Aishwarya Amador PA-C for Dr. Bender
Reason for Consultation: hypotension, afib mgmt
Medical History
-
Chief Complaint: SOB
History of Present Illness:
Patient is a 74-year-old female with history of tobacco abuse and severe COPD chronically on steroid, antibiotic and home oxygen, rheumatoid arthritis, vocal cord dysfunction, chronic anemia, osteoarthritis, hypertension and migraines who presents
to emergency department with worsening shortness of breath being treated for COPD exacerbation. She is chronically followed by Dr. Gonsalez at [facility] but we had last met patient during her last admission to also for COPD exacerbation. In setting
of this she had aflutter with RVR. She was not felt to be a good candidate for BB given her severe COPD and was started on diltiazem 120mg daily. Not felt to be an OAC candidate given frailty and high bleeding risk on chronic steroids. She was seen
in OP setting by Dr. Gonsalez's office and underwent 2 week monitor which preliminarily showed 2 brief runs of afib vs atach but was told by AMS office that official results would be completed by the end of this week. Family has noted since patient
started diltiazem, she has been more fatigued and BPs in last several days have been on low side resulting in cardiology consultation.
PMH:
End-stage COPD on on chronic steroids and chronic home oxygen/O2 dependent
Brief atrial flutter 12/2024
Rheumatoid arthritis
Chronic anemia
Vocal cord dysfunction
Migraines
Chronic lymphedema
Hypertension
Anxiety
Osteoporosis
Past Medical History
Past Medical History: Other (See HPI)
Past Surgical History: , Gynecological (Hysterectomy), Orthopedic (Right wrist surgery, left tibial fracture surgery) and Other (Cataract extraction)
Social History
Tobacco: Former Smoker (Quit 2005)
Alcohol: None
Drug: None
Personal:
Living: With Family
Family History
Family History: Reviewed & Not Pertinent
Allergies / Home Medications
Allergy/AdvReac Type Severity Reaction Status Date / Time
mannitol (From Reclast) Allergy Swelling Verified 12/23/24 12:28
zoledronic acid (From Allergy Swelling Verified 12/23/24 12:28
Reclast)
�Medication �Instructions �Recorded �Confirmed �Type
alendronate 70 mg tablet 70 mg PO MARTELL osteoporosis 06/27/23 02/14/25 History
arformoterol 15 mcg/2 mL solution 2 ml inhalation R BID 06/27/23 02/14/25 History
for nebulization (Brovana) Lung/Breathing Issues
azithromycin 250 mg tablet 250 mg PO MOWEFR@2000 copd 06/27/23 02/14/25 History
budesonide 0.5 mg/2 mL suspension 0.5 mg inhalation R BID 06/27/23 02/14/25 History
for nebulization Lung/Breathing Issues
cyclosporine 0.05 % eye drops in a 1 drp BOTH EYES BID dry eyes 06/27/23 02/14/25 History
dropperette (Restasis)
ipratropium 0.5 mg-albuterol 3 mg 3 ml inhalation R QID 06/27/23 02/14/25 History
(2.5 mg base)/3 mL nebulization Lung/Breathing Issues
soln
ipratropium 20 mcg-albuterol 100 1 puff inhalation R BIDPRN PRN sob 06/27/23 02/14/25 History
mcg/actuation mist for inhalation
(Combivent Respimat)
leflunomide 10 mg tablet 20 mg PO HS rheumatoid arthritis 06/27/23 02/15/25 History
theophylline 200 mg 200 mg PO HS copd 06/27/23 02/14/25 History
capsule,extended release 24 hr
(Eugene-24)
tiotropium bromide 2.5 2 puff inhalation R HS copd 06/27/23 02/14/25 History
mcg/actuation mist for inhalation
(Spiriva Respimat)
tocilizumab 400 mg/20 mL (20 400 mg IV Q4W rheumatoid arthritis 06/27/23 02/14/25 History
mg/mL) intravenous solution
(Actemra)
valacyclovir 500 mg tablet 500 mg PO HS viral infection 06/27/23 02/14/25 History
cholecalciferol (vitamin D3) 25 25 mcg PO MOTUWETHFRSA Supplement 07/16/23 02/14/25 History
mcg (1,000 unit) tablet (Vitamin
D3)
spironolactone 25 mg tablet 25 mg PO DAILYPRN PRN blood 07/16/23 02/14/25 History
pressure-when she remembers
albuterol sulfate 90 mcg/actuation 2 puff inhalation R Q4HPRN PRN sob 11/13/24 02/14/25 History
aerosol inhaler
ascorbic acid (vitamin C) 1,000 mg 1,000 mg PO QPM Supplement 11/13/24 02/14/25 History
tablet (Vitamin C)
cyanocobalamin (vitamin B-12) 50 20 mcg PO MOWEFR@2000 Supplement 11/13/24 02/15/25 History
mcg tablet
ensifentrine 3 mg/2.5 mL 2.5 ml inhalation R BID 11/13/24 02/15/25 History
suspension for nebulization Lung/Breathing Issues
(Ohtuvayre)
prednisone 5 mg tablet 5 mg PO BID rheumatoid arthritis 11/13/24 02/14/25 History
sulfasalazine 500 mg tablet 500 mg PO BID RHEUMATOID ARTHRITIS 11/13/24 02/15/25 History
rimegepant 75 mg disintegrating 75 mg PO DAILYPRN PRN mirgraines 12/23/24 02/14/25 History
tablet (Nurtec ODT)
sertraline 25 mg tablet 25 mg PO HS Mental Health/Anxiety 12/23/24 02/14/25 History
diltiazem HCl 120 mg 120 mg PO DAILY #30 caps 12/28/24 02/14/25 Rx
capsule,extended release 24 hr
B12 Active 20 mg PO DAILY Supplement 02/14/25 02/15/25 History
ptldtiocua-wjxV-nrab lacq samina 1XD PRN nail fungus 02/14/25 History
clotrimazole 10 mg concepción 10 mg mucous membrane TID PRN 02/14/25 02/15/25 History
thrush
gabapentin 100 mg TID PRN pain 02/14/25 02/15/25 History
iron sucrose 100 mg iron/5 mL 100 mg IV DAILY PRN ferritin level 02/14/25 02/15/25 History
intravenous solution less than 80
lidocaine 4 % topical patch 1 patch topical Pain 02/14/25 History
(Blue-Emu Lidocaine Patch)
lidocaine-aloe vera 0.5 % topical 1 applic topical BID PRN pain 02/14/25 02/15/25 History
gel
minerals 1 tab PO DAILY Supplement 02/14/25 02/15/25 History
mupirocin PRN SKIN ISSUES 02/14/25 History
potassium chloride 10 mEq 10 meq PO BID Electrolyte Repletion 02/14/25 02/15/25 History
tablet,extended release
prednisolone acetate 1 % eye 2 drp ophthalmic (eye) BID PRN EYE 02/14/25 02/15/25 History
drops,suspension
torsemide 10 mg tablet 10 mg PO BID PRN fluid retention 02/14/25 02/15/25 History
triamcinolone acetonide PRN SKIN ISSUES 02/14/25 History
zinc 1 tab PO Supplement 02/14/25 History
Review of Systems
-
History Source: Patient
All other systems: Negative unless noted
Physical Exam
Vital Signs
Temp Pulse Resp BP Pulse Ox
98.1 F 87 18 90/47 97
02/16/25 08:00 02/16/25 10:15 02/16/25 10:15 02/16/25 10:00 02/16/25 10:00
Lab Results
02/16/25 04:23
02/16/25 04:23
Troponin I 0.016 ng/ml 02/14/25 17:26
Etx-J-Afjlqxbszep Pept 356 pg/ml 02/14/25 17:26
Impression / Plan
-
Primary Apparatus Engineering Technologist: Dr. Gonsalez of [facility]
Assessment:
Presentation with SOB
End-stage COPD on on chronic steroids and chronic home oxygen/O2 dependent 3-4L, now with acute exacerbation
Hypotension
Brief atrial flutter 12/2024
MAT
PACs
Rheumatoid arthritis
Chronic anemia
Vocal cord dysfunction
Migraines
Chronic lymphedema
Hypertension
Anxiety
Osteoporosis
ECHO 11/14/24: EF 50%, aortic sclerosis, trace mitral and tricuspid insufficiency
Plan:
- Patient with end-stage COPD was admitted with shortness of breath and COPD exacerbation. Pulmonary following. She is chronically on 3 to 4 L supplemental oxygen during the day and uses BiPAP nightly
- Patient noted to be relatively hypotensive, although asymptomatic and also reports some fatigue with Cardizem
- Discussed limited options for rate control of arrhythmias with patient and daughter Paul at bedside as well as separately with butcher chicken and fish. She is not an ideal candidate for beta-tom or for amiodarone given her severe lung disease
- Discussed option of transitioning Cardizem CD to 120 mg at bedtime instead of every morning versus transitioning to short acting diltiazem 30 mg twice daily, but would not stop medication as patient felt to have limited reserve, and suspect
patient would not tolerate rapid atrial fibrillation well
- In sinus rhythm on review of telemetry with frequent PACs
- Recent echo with results as above
- Discussed with nursing
Data Reviewed
-
EKG: Tracing Personally Visualized and interpreted
Medical Tests (Nuc Med, Echo etc): Report Reviewed by me
Labs: Labs Reviewed by me
Old Records: Reviewed
[2025-02-16] MEDS: MAXIPIME 1000 MG IV ×2 (12:04→21:29)
--- NOTE | 2025-02-16 14:25 | W.PN.UPDATE ---
Update Note
Progress Note Update
Came to the bedside to speak with patient at her request.
Now she is more alert, awake and cooperative.
Her daughter is also at the bedside.
She wanted to discuss about goals of care. Given her overall physical deconditioning, advanced lung disease, frequent hospital admissions I recommended against intubation or CPR.
She states that she is concerned about her declining quality of life over time. She is not interested on tracheotomy or feeding tubes.
She will discuss with her later today. She would like to update her status to DNR.
Daughter who was at the bedside also is agreeable.
--- NOTE | 2025-02-16 15:57 | CM ---
Now DNR status. Discussed GOC with Scarf Gluer at her request. Discharge POC: Currently, Anticipate home with resumption of [facility] RN, PT/OT services.
--- NOTE | 2025-02-16 20:00 | PTCARENOTE ---
on assessment pt OOB to chair, AAOx3, denies chest pain, ST/SR on the monitor, at bedside, 4L NC and due for BIPAP HS, reg diet, assist x1 to commode, LUE dressing intact, L hand elevated on pillow, pt states L hand is ' feeling better',
call colon in reach
[2025-02-16] MEDS: CARDIZEM 30 MG PO (21:28)
[2025-02-16] MEDS: VALTREX 500 MG PO (21:29)
[2025-02-16] MEDS: ZOLOFT 25 MG PO (21:29)
[2025-02-16] MEDS: REMOVE LIDOCAINE PATCH 1 PATCH REMOVE (21:30)
[2025-02-16] MEDS: SOLU-MEDROL PF 40 MG IV (21:30)
[2025-02-17] VITALS (19 sets, daily range): BP systolic 94–135; BP diastolic 56–77; PULSE 2–108; O2SAT 98–99
[2025-02-17] MEDS: MAXIPIME 1000 MG IV ×2 (03:25→12:23)
[2025-02-17] MEDS: STERILE WATER FOR INJECTION 10 ML IV ×2 (03:25→12:23)
[2025-02-17 03:35] LABS: Hematocrit 32.2 % (37.0-47.0); Hemoglobin 9.8 g/dL (12.0-16.0); Mean Corp Hgb Conc. 30.4 g/dL (33.0-37.0); Mean Corpuscular Volume 89.2 fL (81.0-99.0); Platelet Count 182 10^3/uL (130-400); Red Cell Dist. Width 21.7 % (11.5-14.5)
[2025-02-17 04:13] LABS: Blood Urea Nitrogen 49 mg/dl (7-17); Calcium 9.3 mg/dl (8.4-10.2); Carbon Dioxide 36 mmol/L (22-30); Chloride 100 mmol/L (98-107); Estimated Creatinine Clearance 40 ml/min; Glucose 203 mg/dl (70-99); Magnesium 2.5 mg/dl (1.6-2.3); Potassium 4.1 mmol/L (3.5-5.1); Sodium 138 mmol/L (135-145); eGFR > 60.00
[2025-02-17] MEDS: PULMICORT 0.5 MG INH ×2 (07:14→20:26)
[2025-02-17] MEDS: DUONEB 3 ML INH ×4 (07:15→20:26)
--- NOTE | 2025-02-17 07:51 | W.PN.HOSP.TC ---
Today's Communication/Plan
-
Patient okay for tele -- BUT needs to [facility], as per family's request
See plan
Assessment / Plan
Assessment / Plan
Physical Exam
General: Not in acute distress
HEENT: Normocephalic
Respiratory: Scattered wheezing bilaterally
Cardiac: S1/S2 and Regular Rhythm
GI: Soft and Non Tender. Positive bowel sounds.
Musculoskeletal: Other (LLE swelling slightly larger than right )
Skin: Warm and Dry
Neuro: AAO x 3
Psych: Calm
Assessment/Plan
74 yo female with hx severe COPD (FEV1 22%), chronic hypoxic respiratory failure on home oxygen 4L, paroxysmal afib noticed hospitalization 12/2024, NEREYDA, anxiety/depression, essential HTN, former smoker prsents to the ER in respiratory distress and
altered. Patient was placed on BiPAP upon arrival to the ER.History obtained from daughter and at bedside. Patient was prescribed a BiPAP last admission in December. She does not like wearing it but wears 6 nights a week with one night off
per family. Over past two weeks she has had increased fatigue. Patient reports she has had increased sputum production. No nausea/vomiting/diarrhea. She has increased LE swelling per daughter and she hasn't taken her diuretic in 4 days. No
fevers.
74 yo female with hx severe COPD (FEV1 22%), chronic hypoxic respiratory failure on home oxygen 3L rest; 4 with exertion, paroxysmal afib noticed hospitalization 12/2024, NEREYDA, anxiety/depression, essential HTN, former smoker prsents to the ER in
respiratory distress and altered. Patient was placed on BiPAP upon arrival to the ER.
Triage VS: P 116, RR 23, SpO2 80's on 4L, placed on BiPAP
LABS: WBC 12.4, Hg 12.5, PLT 249, Na 143, K+ 4.7, Cl 97, CO2 40, BUN 18, Cr 0.4, Glucose 131, Lactate 0.8, T. Bili 0.5, AST 31, ALT 24, Alk Phos 161, Trop 0.016, BNP 356
Blood gas: 7.16/> 115/ 179; --> 7.20/ 112/ 129
Acute Metabolic Encephalopathy Due to Hypercapnic Respiratory Failure
Severe COPD, Acute Exacerbation
Acute on Chronic Hypoxic and Hypercarbic Respiratory Failure
Chronic Hypoxic Respiratory Failure on 3L rest, 4 with exertion
Former smoker, quit in 2005 40 pack year history
-Mental status back to baseline as of 02/16/25
-Patient has advanced COPD, poor quality of life, frequent exacerbations-FEV1 around 22% -- has very limited cardiopulmonary reserve
-Improved significantly with BiPAP. Continue BiPAP settings 01/03; backup pressure of 14. Seems to be tolerating okay.; but given improvement of mental status okay to take
breaks during the day from BiPAP no longer than 2-3 hours.
-Influenza and COVID were negative
-CXR with hyperinflated lungs
-s/p IV Methylprednisolone 125mg in ER; continue IV Methylprednisolone --> reduced recently on 02/16/25 from 60 mg IV Q12H to 40 mg IV Q12H -- continue this dose given wheezing
-standing duonebs nebulizer and PRN
-Inhaled corticosteroids
-IV Cefepime given severity of COPD and recent hospitalization. Switched to Augmentin now.
-Continue daily azithromycin for 3 more days and then transition back to every other day for anti-inflammatory properties
-patient is on daily prednisone, BiPAP qhs and Azithromycin at home
Metabolic Alkalosis, Likely from Respiratory Acidosis
-Completed course of Acetazolamide
-Avoid sedatives
-Aspiration precautions
Chronic lower extremity swelling likely due to some degree of cor pulmonale and hypovolemia/immobility
-Ultrasound for DVT check was negative
Left Upper Extremity Skin Tear
-Discussed with wound care nurse, consulted surgery
-Surgeon re-applied dressing on 02/17/25; if rebleeding occurs then would place Surgicel gauze over tiny punctum of bleeding at superior aspect
-Elevated hand above heart for swelling
-Okay to resume subq Lovenox for DVT prophylaxis, today
Paroxysmal Atrial Fibrillation noted admission 01/02/25
-Given hypotension, and outpatient fatigue, home Diltiazem changed to 30 mg BID -- patient needs the Cardizem since would not tolerate rapid A-Fib well
-Appreciate cardio
-Continue Cardizem 30 mg PO BID -- can consider increasing to Diltiazem 30 mg 3 times daily for improved control and ultimately uptitration to 120 mg daily however this can be done as outpatient.
-No Amiodarone or beta tom given pulmonary issues
-Patient's family has declined anticoagulation due to frailty, falls and chronic steroid use.
-Monitor magnesium and electrolytes
Rheumatoid Arthritis
-Takes Actemra/leflunomide at home
-Currently on hold
-At risk for septic shock if there is infection
Anxiety/Depression
NEREYDA
- per daughter, patient had recent iron infusions. Monitor Hgb.
Essential Hypertension
-Blood pressures have improved after adjustment in Diltiazem as above
Osteoporosis
DVT Prophylaxis: SCDs. Lovenox subQ
FULL CODE
Anticipated Discharge: > 48 hours
Subjective/Interval History
-
Date of Service: February 17, 2025
Patient was seen and examined. She reported no new symptoms or complaints.
Objective Data
-
Labs:
Laboratory Results
02/17/25
03:24
WBC 11.7 H
Hgb 9.8 L
Hct 32.2 L
Plt Count 182
Sodium 138
Potassium 4.1
Chloride 100
Carbon Dioxide 36 H
BUN 49 H
Creatinine 0.8
Glucose 203 H
Calcium 9.3
Vital Signs:
Vital Signs
Temp Pulse Resp BP Pulse Ox
97.8 F 91 18 102/60 98
02/16/25 22:47 02/17/25 07:18 02/17/25 07:18 02/17/25 04:00 02/17/25 07:18
I&O
02/16/25 02/17/25 02/18/25
06:59 06:59 06:59
Intake Total 960 / 960
Output Total 830 / 830 880 / 880
Balance 130 / 130 -880 / -880
[2025-02-17] MEDS: SOLU-MEDROL PF 40 MG IV ×2 (08:21→20:35)
[2025-02-17] MEDS: MUCINEX 1200 MG PO ×2 (08:21→20:34)
[2025-02-17] MEDS: ZITHROMAX 500 MG PO (08:21)
[2025-02-17] MEDS: PROTONIX 40 MG PO (08:21)
[2025-02-17] MEDS: CARDIZEM 30 MG PO ×2 (08:21→20:34)
[2025-02-17] MEDS: LIDOCAINE 4% PATCH 1 PATCH TOPICAL (08:22)
--- NOTE | 2025-02-17 10:30 | PTCARENOTE ---
Pt OOB to BSC and then to chair. AM Hygiene completed. Pt tolerated increased activity w/ no complication and only voiced complaint of 'feel a little more congested today'. POx 96% on O2 @ 4l/min via NC. remains attentive at bedside. Lt UE
elevated on pillow. dressing c/d/i. Pt continues to deny numbness/tingling. Trace to no edema noted of Lt hand when compared to Rt hand. Call isaiah w/in pt reach and safe environment maintained.
--- NOTE | 2025-02-17 12:19 | W.PN.CARDCBS ---
Today's Communication / Plan
-
Continue diltiazem 30 mg twice daily, uptitrated as needed for rate control
COPD/infection treatment through pulm service
Impression / Plan
-
Primary Veneer Splicer: Dr. Gonsalez of [facility]
Assessment:
Presentation with SOB
End-stage COPD on on chronic steroids and chronic home oxygen/O2 dependent 3-4L, now with acute exacerbation
Hypotension, improved
Brief atrial flutter 12/2024
Symptomatic paroxysmal atrial fibrillation
- [id number]: 3 (age, hypertension, gender). Not on anticoagulation due to family/personal preference due to frailty, falls, and chronic steroid use
� Currently rate controlled with diltiazem 30 mg twice daily
� Return to sinus rhythm 02/16/2025 at roughly 1633
MAT
PACs
Rheumatoid arthritis
Chronic anemia
Vocal cord dysfunction
Migraines
Chronic lymphedema
Hypertension
Anxiety
Osteoporosis
ECHO 11/14/24: EF 50%, aortic sclerosis, trace mitral and tricuspid insufficiency
Plan:
- Patient with end-stage COPD was admitted with shortness of breath and COPD exacerbation. Pulmonary following. She is chronically on 3 to 4 L supplemental oxygen during the day and uses BiPAP nightly. Patient's significant pulmonary status
likely driving her atrial arrhythmias
- Patient noted to be relatively hypotensive, although asymptomatic and also reports some fatigue with Cardizem, this is improved while in sinus rhythm
- Discussed limited options for rate control of arrhythmias with patient and daughter Paul at bedside as well as separately with tiger machine operator. She is not an ideal candidate for beta-tom or for amiodarone given her severe lung disease
- Discussed option of transitioning Cardizem CD to 120 mg at bedtime instead of every morning versus transitioning to short acting diltiazem 30 mg twice daily, but would not stop medication as patient felt to have limited reserve, and suspect
patient would not tolerate rapid atrial fibrillation well. Patient now tolerating diltiazem 30 mg twice daily. Can consider increasing to 30 mg 3 times daily for improved control and ultimately up titration to 120 mg daily however this can be done
as outpatient.
- Now remains in sinus rhythm on review of telemetry with frequent PACs
� Would continue to monitor on telemetry while inpatient.
� No further recommendation at this time, will sign off. Please call with questions.
- Discussed with nursing, family at bedside
Progress Note - Veneer Splicer
Subjective
Date of Service: February 17, 2025
Patient seen and examined this morning. No acute events overnight. Patient resting in chair. Denies any chest pain, palpitations, or weakness. AF overnight with return to sinus rhythm roughly 1633 he has remained in sinus rhythm. Brief
20-minute stretch however remains mostly sinus.
Objective
Labs:
02/17/25 03:24
02/17/25 03:24
Labs
Hgb 9.8 g/dL (12.0-16.0) L 02/17/25 03:24
Hct 32.2 % (37.0-47.0) L 02/17/25 03:24
Plt Count 182 10^3/uL (130-400) 02/17/25 03:24
PT 13.5 Sec (11.4-14.6) 02/15/25 03:23
INR 1.00 02/15/25 03:23
APTT 31.9 Sec (23.4-35.0) 02/15/25 03:23
Sodium 138 mmol/L (135-145) 02/17/25 03:24
Potassium 4.1 mmol/L (3.5-5.1) 02/17/25 03:24
BUN 49 mg/dl (7-17) H 02/17/25 03:24
Creatinine 0.8 mg/dL (0.6-1.0) 02/17/25 03:24
Glucose 203 mg/dl (70-99) H 02/17/25 03:24
Troponins
02/14/25
17:26
Troponin I 0.016
Vital Signs and I&O:
Vital Signs
Temp Pulse Resp BP Pulse Ox
98.2 F 99 18 107/61 98
02/17/25 11:57 02/17/25 11:28 02/17/25 11:28 02/17/25 08:21 02/17/25 11:28
Vital Signs
Temp Pulse Resp BP Pulse Ox
98.2 F 99 18 107/61 98
02/17/25 11:57 02/17/25 11:28 02/17/25 11:28 02/17/25 08:21 02/17/25 11:28
Intake & Output
02/15/25 02/16/25 02/17/25 02/18/25
06:59 06:59 06:59 06:59
Intake Total 2.5 / 2.5 960 / 960
Output Total 810 / 810 830 / 830 880 / 880
Balance -807.5 / -807.5 130 / 130 -880 / -880
Physical Exam
Physical Exam
GEN: No distress, awake, Ox3
HEENT: supple, anicteric, mmm
LUNGS: bilat wheeze/rhonchi
CV: Reg, S1/S2, 1/6 syst LSB, no gallop
ABD: soft, BS+, NT/ND
EXT: No edema
NEURO: Gross non-focal
SKIN: No rash
[2025-02-17 12:39] LABS: Glucose - Point of Care 279 mg/dl (70-99)
--- NOTE | 2025-02-17 12:41 | PN.CDI ---
CDI
- -
CDI:
Physician Documentation Request
Admit Date: 02/14/25 19:49
Dear Doctor Souleymane,
Please review the following and provide your response in the progress notes.
Clinical Indicators:
Pt admitted for Severe COPD, Acute Exacerbation and Hypoxic and Hypercarbic Respiratory Failure.
ER Note: ' Patient presents to the emergency department with respiratory distress. Patient is altered on arrival and unable to provide reliable medical history...it is now about an hour later on bipap and she is more easily arousable, following
commands.'
Based on the above, could you clarify in the Progress Notes and Discharge Summary which, if any of the following, is the most likely etiology of the confusion/altered mental status.
Metabolic Encephalopathy due to a specific condition such as UTI, CVA, hyponatremia etc.
Other Encephalopathy (please specify)
Acute confusional state Only
Other
Use of terms such as suspected, likely, concern for, or probable (associated with a specific diagnosis that is being evaluated, monitored, or treated as if it exists) are acceptable and can be coded in the inpatient setting, when documented at the
time of discharge.
Thank you,
Peri Lance RN, BSN
CDI Specialist
Shannon [facility]
Please use your independent medical judgment in providing your response.
[2025-02-17] MEDS: NOVOLOG FLEXPEN-LOW RESISTANCE 3 UNITS SC (12:48)
--- NOTE | 2025-02-17 13:18 | W.PN.PUL3 ---
Today's Communication / Plan
-
Transition to oral antibiotics Augmentin
Continue azithromycin for 3 more days and then transition back to every other day for anti-inflammatory properties
Continue nebulizer therapy
Physical therapy/Occupational Therapy
Nutritional support
Incentive spirometry
Oxygen supplementation
Continue BiPAP during the day as needed and with naps and at bedtime
From my end okay to transition to telemetry private room
Assessment
-
74 woman with past medical history of advanced COPD. Known to our service from previous admissions. Readmitted with acute hypercapnic respiratory failure due to acute exacerbation of COPD. Placed on BiPAP therapy and transferred to the critical
care unit for further care. We were consulted 02/14/2025.
Dr. Betancourt discussed the case overnight with emergency room, hospitalist and also respiratory therapist for guidance.
Patient transferred to IMU-pulmonary follow-up on 02/17/2025.
Acute on chronic hypercapnic respiratory failure due to acute exacerbation of advanced COPD.
ABG 7.22/110/84 02/14/2025
Chest x-ray 02/14/2025: Hyperinflation. No acute infiltrates.
proBNP 350
Negative cardiac troponin
Leukocytosis: Possibly from steroids.
? Increased phlegm production-perhaps tracheobronchitis.
-
Conditions present prior admission:
Advanced COPD: 4 L nasal cannula, noninvasive mechanical ventilation-chronic hypoxemic and hypercapnic respiratory failure
Up until recently followed at [facility]- Dr. Shi
More recently after discharge in December following locally at [facility]- To see Dr. Mtz 02/15/2025
Rheumatoid arthritis
Chronic anemia
Hypertension
Anxiety
Osteoporosis
Assessment and plan:
From the respiratory perspective overall clinically improved.
She continues to have some expiratory wheezing-continues to feel weak.
Mental status back to baseline as of 02/16/2025.
VBG 02/16/2025: 7.37/63/148 (baseline) ABG baseline will be obtained prior to discharge as long as the patient continues to progress In the right direction.
Oxygen supplementation between 3 and 5 L-suspect baseline.
-
Lung exam: Better air movement, still with expiratory wheezing.
Patient has advanced COPD, poor quality of life, frequent exacerbations-FEV1 around 22%.
Unclear trigger for her acute exacerbation.
patient has very limited cardiopulmonary reserve.
-
Continue management for acute exacerbation of COPD:
Reduce methylprednisolone to 40 mg IV every 12 for 1 additional day and then transition to oral prednisone 02/18/2025 if she continues to improve.
Eventual prednisone taper down to her baseline.
Given increased phlegm production: Started on cefepime/azithromycin as the patient was recently in the hospital.
Transition azithromycin to p.o. today 02/16/2025 complete total of 5-7 days
All cultures negative: Start Augmentin twice a day. Again complete total 7 days of antibiotics
-
Will obtain a sputum culture if able- Has not been able to produce
Negative influenza/negative blood cultures
Negative COVID
Negative MRSA screening in the past.
-
Continue nebulizer therapy: Budesonide twice a day, DuoNebs 4 times a day
-
Patient did receive 1 dose of Lasix in the emergency room-hold for now. Did not suspect patient is significant volume overloaded.
Does have chronic lower extremity swelling likely due to some degree of cor pulmonale and hypoalbuminemia/immobility.
-
Acute on chronic hypercapnic respiratory failure, change in mental status-improved back to baseline.
Last ABG 02/14/2025 at 23 25-7.32/89/72.
VBG 02/16/2025-improved back to baseline.
-
Significant muscle mass loss and debilitation. High risk for progressing to intubation. Family aware.
Will try to avoid sedatives.
Continue BiPAP settings /. Backup pressure of 14. Seems to be tolerating okay.
Patient has noninvasive mechanical ventilation at home that she is using as much as possible. Does not like it very much but she is trying her best.
While in the hospital may use during the day as needed for naps.
Continue with nocturnal
-
Given significant metabolic alkalosis: Complete acetazolamide x 6 doses-02/16/2025.
Bicarbonate today -improved down to 36.
Avoid sedatives
-
Left upper arm skin laceration: Unclear whether it was [facility] emergency room.
Continue wound care.
Surgery following-continue local care
Lovenox on hold as patient was bleeding. Will restart tomorrow if stable 02/17/2025 per
-
Rheumatoid arthritis chronic immunosuppression: Actemra/leflunomide.
Currently on hold
At risk for septic shock if there is infection
-
Anxiety/depression: May use benzodiazepine as needed if necessary.
-
Head of the bed elevation
Discussed with family malnutrition risk as the patient has no significant reserve.
Start diet today 02/16/2025-mental status back to base
Continue with aspiration precaution
-
Physical therapy/Occupational Therapy as tolerated
-
Transfer to intermediate care unit.
-

Previous correspondence reviewed: Used to follow-up at [facility] (recently. More recently following locally at [facility]-Will be seeing Dr. Mtz or Dr. Guevara in the outpatient
Outpatient COPD regimen includes: Low-dose theophylline
Azithromycin for anti-inflammatory properties
Brovana/budesonide nebulizers
Ipratropium/albuterol nebulizers as needed
Ohtuvayre
Spiriva
On chronic low-dose prednisone therapy
Started on noninvasive mechanical ventilation last admission 12/2024. Has been using 5 to 6 days/week.
-
Multiple times it has been discussed with family and patient regarding goals of care.
For now full code.
They understand that this patient likely will not do well on mechanical ventilation and likely if intubated will have difficulty weaning off from mechanical ventilation.
-
Subjective Data
-
Date of Service:
Date of Service: February 17, 2025
Objective Data
Data Reviewed
Vital Signs / I&O / Oxygen:
Vital Signs
Temp Pulse Resp BP Pulse Ox
98.2 F 97 14 116/61 99
02/17/25 11:57 02/17/25 12:00 02/17/25 12:00 02/17/25 12:00 02/17/25 12:00
Intake and Output
02/16/25 02/17/25 02/18/25
06:59 06:59 06:59
Intake Total 960 / 960
Output Total 830 / 830 880 / 880
Balance 130 / 130 -880 / -880
SaO2 99
Nasal Cannula flow liters per 4
minute
Labs/Micro/Reports
Lab Data
02/17/25 03:24
02/17/25 03:24
Microbiology
02/14/25 18:35 Blood/Venous Blood Culture - Preliminary
No Growth in 48 hours- Final report to follow
02/14/25 18:22 Blood/Venous Blood Culture - Preliminary
No Growth in 48 hours- Final report to follow
02/14/25 19:11 Nasal Swab Influenza Types A & B (WARNER) - Final
Negative for Influenza A & B, NAAT
Negative results must be combined with clinical observations
and patient history.
Nucleic Acid Amplification test (NAAT)performed on the
[employer] NOW platform.
--- NOTE | 2025-02-17 14:47 | PTCARENOTE ---
Pt remains OOB in chair w/ present in room. No offered complaints or changes noted from previous assessment findings. Pox 99% on O2 @ 4l/min via NC.
--- NOTE | 2025-02-17 16:50 | PTCARENOTE ---
Pt returned to bed after using BR to void. Stating desire to take nap and requesting BiPap. RT notified of pt's request. No changes noted from previous assessment findings or new complaints received. remains bedside.
[2025-02-17] MEDS: NOVOLOG FLEXPEN-LOW RESISTANCE 4 UNITS SC (18:28)
[2025-02-17] MEDS: LOVENOX 30 MG SC (18:30)
[2025-02-17 18:39] LABS: Glucose - Point of Care 338 mg/dl (70-99)
[2025-02-17] MEDS: AUGMENTIN 875 MG/125 MG 1 TABLET PO (20:34)
[2025-02-17] MEDS: REMOVE LIDOCAINE PATCH 1 PATCH REMOVE (20:41)
[2025-02-17] MEDS: STERILE WATER FOR INJECTION IV (20:43)
[2025-02-17 21:38] LABS: Glucose - Point of Care 248 mg/dl (70-99)
--- NOTE | 2025-02-17 22:05 | PTCARENOTE ---
patient resting comfortably with at bedside. patient OOB to chair, using bedside commode with minimal exertion. patient remains in an uncontrolled afib, SAFETY AND SECURITY OFFICER aware. spoke with SAFETY AND SECURITY OFFICER regarding q2 hr neuro checks for her hand. patient has had
no edema, no tinging or numbness, and the checks have been for 24 hrs. per SAFETY AND SECURITY OFFICER checks have been cancelled. patient was also taken to higher insulin scale as well.
[2025-02-17] MEDS: NOVOLOG FLEXPEN 5 UNITS SC (22:49)
[2025-02-17] MEDS: VALTREX 500 MG PO (22:49)
[2025-02-17] MEDS: ZOLOFT 25 MG PO (22:49)
[2025-02-17] MEDS: CARDIZEM 5 MG IV (22:50)
[2025-02-18] VITALS (13 sets, daily range): BP systolic 106–138; BP diastolic 55–74; PULSE 2; BMI 19.3
[2025-02-18] MEDS: BENADRYL 25 MG PO (00:29)
[2025-02-18 04:27] LABS: Hematocrit 32.9 % (37.0-47.0); Hemoglobin 9.7 g/dL (12.0-16.0); Mean Corp Hgb Conc. 29.5 g/dL (33.0-37.0); Mean Corpuscular Volume 91.4 fL (81.0-99.0); Platelet Count 177 10^3/uL (130-400); Red Cell Dist. Width 22.3 % (11.5-14.5)
[2025-02-18 04:41] LABS: Blood Urea Nitrogen 42 mg/dl (7-17); Calcium 9.5 mg/dl (8.4-10.2); Carbon Dioxide 37 mmol/L (22-30); Chloride 104 mmol/L (98-107); Estimated Creatinine Clearance 54 ml/min; Glucose 161 mg/dl (70-99); Potassium 4.4 mmol/L (3.5-5.1); Sodium 143 mmol/L (135-145); eGFR > 60.00
[2025-02-18] MEDS: STERILE WATER FOR INJECTION IV ×3 (05:31→20:02)
--- NOTE | 2025-02-18 06:52 | PTCARENOTE ---
patient oob at 4 am to use bsc, wanted break from bipap, was 98% on 4lm ,at 6am patient placed back on bipap with o2 of 85%, FIFTH HAND in room, adjusting bipap setting, no changes, started patient on NIV.
--- NOTE | 2025-02-18 07:27 | W.PN.HOSP.TC ---
Today's Communication/Plan
-
See plan
Assessment / Plan
Assessment / Plan
Physical Exam
General: Not in acute distress
HEENT: Normocephalic
Respiratory: Scattered wheezing bilaterally
Cardiac: S1/S2 and Regular Rhythm
GI: Soft and Non Tender. Positive bowel sounds.
Musculoskeletal: Other (LLE swelling slightly larger than right )
Skin: Warm and Dry
Neuro: AAO x 3
Psych: Calm
Assessment/Plan
74 yo female with hx severe COPD (FEV1 22%), chronic hypoxic respiratory failure on home oxygen 4L, paroxysmal afib noticed hospitalization 12/2024, NEREYDA, anxiety/depression, essential HTN, former smoker prsents to the ER in respiratory distress and
altered. Patient was placed on BiPAP upon arrival to the ER.History obtained from daughter and at bedside. Patient was prescribed a BiPAP last admission in December. She does not like wearing it but wears 6 nights a week with one night off
per family. Over past two weeks she has had increased fatigue. Patient reports she has had increased sputum production. No nausea/vomiting/diarrhea. She has increased LE swelling per daughter and she hasn't taken her diuretic in 4 days. No
fevers.
74 yo female with hx severe COPD (FEV1 22%), chronic hypoxic respiratory failure on home oxygen 3L rest; 4 with exertion, paroxysmal afib noticed hospitalization 12/2024, NEREYDA, anxiety/depression, essential HTN, former smoker prsents to the ER in
respiratory distress and altered. Patient was placed on BiPAP upon arrival to the ER.
Triage VS: P 116, RR 23, SpO2 80's on 4L, placed on BiPAP
LABS: WBC 12.4, Hg 12.5, PLT 249, Na 143, K+ 4.7, Cl 97, CO2 40, BUN 18, Cr 0.4, Glucose 131, Lactate 0.8, T. Bili 0.5, AST 31, ALT 24, Alk Phos 161, Trop 0.016, BNP 356
Blood gas: 7.16/> 115/ 179; --> 7. 112/ 129
Acute Metabolic Encephalopathy Due to Hypercapnic Respiratory Failure
Severe COPD, Acute Exacerbation
Acute on Chronic Hypoxic and Hypercarbic Respiratory Failure
Chronic Hypoxic Respiratory Failure on 3L rest, 4 with exertion
Former smoker, quit in 2005 40 pack year history
-Mental status back to baseline as of 02/16/25
-Patient has advanced COPD, poor quality of life, frequent exacerbations-FEV1 around 22% -- has very limited cardiopulmonary reserve
-Improved significantly with BiPAP. Continue BiPAP settings 01/03; backup pressure of 14. Seems to be tolerating okay.; but given improvement of mental status okay to take
breaks during the day from BiPAP no longer than 2-3 hours -- should use BiPAP with naps and at bedtime consistently.
-Influenza and COVID were negative
-CXR with hyperinflated lungs
-s/p IV Methylprednisolone 125mg in ER; continue IV Methylprednisolone --> reduced recently on 02/16/25 from 60 mg IV Q12H to 40 mg IV Q12H --> reduce further to 30 mg IV Q12H on 02/18/25
-standing duonebs nebulizer and PRN
-Inhaled corticosteroids
-IV Cefepime given severity of COPD and recent hospitalization. Switched to Augmentin now.
-Continue daily azithromycin for 2 more days and then transition back to every other day for anti-inflammatory properties
-patient is on daily prednisone, BiPAP qhs and Azithromycin at home
Metabolic Alkalosis, Likely from Respiratory Acidosis
-Completed course of Acetazolamide
-Avoid sedatives
-Aspiration precautions
Chronic lower extremity swelling likely due to some degree of cor pulmonale and hypovolemia/immobility
-Ultrasound for DVT check was negative
Left Upper Extremity Skin Tear
-Discussed with wound care nurse, consulted surgery
-Surgeon re-applied dressing on 02/17/25; if rebleeding occurs then would place Surgicel gauze over tiny punctum of bleeding at superior aspect
-Elevated hand above heart for swelling
-Okay to resume subq Lovenox for DVT prophylaxis on 02/17/25 -- confirmed reduced dosing given patient's weight, with pharmacy
-Patient's daughter requested surgery to personally look at the patient's LUE wound prior to patient being discharged from the hospital
Paroxysmal Atrial Fibrillation noted admission 01/02/25
-Given hypotension, and outpatient fatigue, home Diltiazem changed to 30 mg BID -- patient needs the Cardizem since would not tolerate rapid A-Fib well
-Appreciate cardio
-Increased Cardizem from 30 mg PO BID to 30 mg PO TID given episodes of tachycardia -- can consider ultimately uptitration to 120 mg daily however this can be done as outpatient.
-No Amiodarone or beta tom given pulmonary issues
-Patient's family has declined anticoagulation due to frailty, falls and chronic steroid use.
-Monitor magnesium and electrolytes
Hyperglycemia
-Suspected from steroids
-Patient's daughter would like Diabetes [facility] consult prior to discharge
Elevated ProBNP on 02/18/25
-Lasix 20 mg on 02/18/25
Rheumatoid Arthritis
-Takes Actemra/leflunomide at home
-Currently on hold
-At risk for septic shock if there is infection
Anxiety/Depression
NEREYDA
- per daughter, patient had recent iron infusions. Monitor Hgb.
Essential Hypertension
-Blood pressures have improved after adjustment in Diltiazem as above
Osteoporosis
DVT Prophylaxis: SCDs. Lovenox subQ
FULL CODE
I spoke to patient's daughter on 02/18/25, and also spoke to her on 02/16/25, and answered all of her questions and concerns to satisfaction.
Anticipated Discharge: > 48 hours
Subjective/Interval History
-
Date of Service: February 18, 2025
Patient was seen and examined. Overnight she became more hypoxic needed NIV AVAPS, also needed additional Cardizem for tachycardia. Pulse ox was also moved to ear with better oxygen readings.
Objective Data
-
Labs:
Laboratory Results
02/18/25
03:46
WBC 12.2 H
Hgb 9.7 L
Hct 32.9 L
Plt Count 177
Sodium 143
Potassium 4.4
Chloride 104
Carbon Dioxide 37 H
BUN 42 H
Creatinine 0.6
Glucose 161 H
Calcium 9.5
Vital Signs:
Vital Signs
Temp Pulse Resp BP Pulse Ox
99 F 91 19 106/55 96
02/18/25 07:08 02/18/25 03:00 02/18/25 03:00 02/18/25 02:00 02/18/25 03:00
I&O
02/17/25 02/18/25 02/19/25
06:59 06:59 06:59
Intake Total 840 / 840
Output Total 880 / 880
Balance -880 / -880 840 / 840
[2025-02-18] MEDS: PULMICORT 0.5 MG INH ×2 (07:40→20:40)
[2025-02-18] MEDS: DUONEB 3 ML INH ×4 (07:40→20:40)
[2025-02-18 07:43] LABS: Glucose - Point of Care 144 mg/dl (70-99)
--- NOTE | 2025-02-18 07:52 | PTCARENOTE ---
700 Assumed care; patient in bed. On AVAP 480/16/100% SpO2 100%
BP: 111/62 MAP 78 (Right Upper arm ); Normal Sinus Rhythm 87;
AVAP settings changed 480/16/% CoR610%
Abdomen soft non-tender
Daughter at bedside, update provided
[2025-02-18] MEDS: NOVOLOG FLEXPEN-MODERATE RESISTANCE SC ×2 (07:59→17:35)
[2025-02-18] MEDS: LIDOCAINE 4% PATCH 1 PATCH TOPICAL (08:07)
[2025-02-18] MEDS: SOLU-MEDROL PF 40 MG IV ×2 (08:08→19:50)
[2025-02-18] MEDS: MUCINEX 1200 MG PO ×2 (10:41→19:50)
[2025-02-18] MEDS: ZITHROMAX 500 MG PO (10:41)
[2025-02-18] MEDS: PROTONIX 40 MG PO (10:41)
[2025-02-18] MEDS: CARDIZEM 30 MG PO ×3 (10:42→22:19)
[2025-02-18] MEDS: AUGMENTIN 875 MG/125 MG 1 TABLET PO ×2 (10:43→19:49)
--- NOTE | 2025-02-18 11:13 | PTCARENOTE ---
VBG collected while pt on oxygen 4L via nasal canula. AVAP off since 10:05
[2025-02-18 11:21] LABS: Venous Blood Gas B.E. 8.8 mmol/L (-4 to +4); Venous Blood Gas O2 Sat % 99.8 %
[2025-02-18 11:22] LABS: Venous Blood Gas O2 Therapy 90
--- NOTE | 2025-02-18 11:37 | W.PN.INTV ---
Today's Communication / Plan
Recommendations
Continue BiPAP
Continue supplemental oxygen
IV steroids decreased to 30 mg IV every 12
20 mg of Lasix now-increased proBNP compared to prior.
Should use BiPAP with naps and at bedtime consistently.
Continue nebulizer therapy
Incentive spirometry
Augmentin/azithromycin
Anxiolytics
Physical therapy as tolerated
Assessment
-
74 woman with past medical history of advanced COPD. Known to our service from previous admissions. Readmitted with acute hypercapnic respiratory failure due to acute exacerbation of COPD. Placed on BiPAP therapy and transferred to the critical
care unit for further care. We were consulted 02/14/2025.
Dr. Betancourt discussed the case overnight with emergency room, hospitalist and also respiratory therapist for guidance.
Acute on chronic hypercapnic respiratory failure due to acute exacerbation of advanced COPD.
ABG 7.22/110/84 02/14/2025
Chest x-ray 02/14/2025: Hyperinflation. No acute infiltrates.
proBNP 350
Negative cardiac troponin
Leukocytosis: Possibly from steroids.
? Increased phlegm production-perhaps tracheobronchitis.
-
Conditions present prior admission:
Advanced COPD: 4 L nasal cannula, noninvasive mechanical ventilation-chronic hypoxemic and hypercapnic respiratory failure
Up until recently followed at [facility]- Dr. Shi
More recently after discharge in December following locally at [facility]- To see Dr. Mtz 02/15/2025
Rheumatoid arthritis
Chronic anemia
Hypertension
Anxiety
Osteoporosis
Assessment and plan:
Clinically improved: Mental status back to baseline.
VBG 02/16/2025: 7.37/63/148 (baseline)
VBG 02/18/2025: 7./230
Oxygen supplementation between 3 and 5 L-suspect baseline.
Lung exam: Better air movement, still with expiratory wheezing.
-
Patient has advanced COPD, poor quality of life, frequent exacerbations-FEV1 around 22%.
Unclear trigger for her acute exacerbation-could be infection/tracheobronchitis.
patient has very limited cardiopulmonary reserve.
-
Continue management for acute exacerbation of COPD:
Will decrease methylprednisolone to 30 mg IV every 12(75 mg prednisone equivalent) will continue to decrease every 24-48 hours depending on clinical situation. Eventual prednisone taper down to her baseline.
-
Given increased phlegm production: Started on cefepime/azithromycin as the patient was recently in the hospital.
Day #5 of antibiotics
Transition azithromycin to p.o. today 02/16/2025 complete total of 7 days
Cefepime discontinued-transition to Augmentin 02/18/2025.
-
Sputum culture if able- Has not been able to produce
Negative influenza/negative blood cultures
Negative COVID
Negative MRSA screening in the past.
-
Continue nebulizer therapy: Budesonide twice a day, DuoNebs 4 times a day-continue without change.
Hold Spiriva while in the hospital.
-
Patient did receive 1 dose of Lasix in the emergency room-hold for now. Did not suspect patient is significant volume overloaded on admission.
Does have chronic lower extremity swelling likely due to some degree of cor pulmonale and hypoalbuminemia/immobility.
With intermittent atrial fibrillation
proBNP now in the thousands
Will defer to cardiology or primary team whether further diuresis will be needed.
-
Acute on chronic hypercapnic respiratory failure, change in mental status-improved back to baseline.
Last ABG 02/14/2025 at 23 25-7.32/89/72.
VBG 02/16/2025-improved back to baseline.
-
Again, patient has significant muscle mass loss and debilitation. High risk for progressing to intubation. Family aware.
Will try to avoid sedatives.
Continue BiPAP settings 01/03. Backup pressure of 14. Seems to be tolerating okay.
VBG noted 02/18/2025 a little worse-will continue to encourage BiPAP use throughout the day.
Will need to repeat ABG prior to discharge. Try to limit daily arterial sampling-as clinically she is improving.
-
Will continue BiPAP during the day intermittently, continue at bedtime.
-
Given significant metabolic alkalosis: Complete acetazolamide 02/16/2025.
Bicarbonate today 02/16/2025-->37.
Continue to monitor if bicarb increases to 40 will repeat acetazolamide.
Avoid sedatives
Aspiration precautions
-
Left upper arm skin laceration: Unclear whether it was [facility] emergency room.
Continue wound care.
Surgery following-continue local care
Lovenox on hold as patient was bleeding. Will restart tomorrow if stable 02/17/2025 per
-
Rheumatoid arthritis chronic immunosuppression: Actemra/leflunomide.
Currently on hold
At risk for septic shock if there is infection
-
Anxiety/depression: May use benzodiazepine as needed if necessary.
Sertraline
-
Head of the bed elevation
Discussed with family malnutrition risk as the patient has no significant reserve.
Advance diet as tolerated.
Continue with aspiration precaution
-
Transfer to intermediate care unit.
-

Previous correspondence reviewed: Used to follow-up at [facility] (recently. More recently following locally at [facility]-Will be seeing Dr. Mtz or Dr. Guevara in the outpatient
Outpatient COPD regimen includes: Low-dose theophylline
Azithromycin for anti-inflammatory properties
Brovana/budesonide nebulizers
Ipratropium/albuterol nebulizers as needed
Ohtuvayre
Spiriva
On chronic low-dose prednisone therapy
Started on noninvasive mechanical ventilation last admission 12/2024. Has been using 5 to 6 days/week.
-
Multiple times it has been discussed with family and patient regarding goals of care.
For now full code.
They understand that this patient likely will not do well on mechanical ventilation and likely if intubated will have difficulty weaning off from mechanical ventilation.
-
Pulmonary follow-up.
If stable overnight can transfer to telemetry in the next 24 hours.
Subjective Dataa
Subjective Data
Date of Service:
Date of Service: February 18, 2025
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
Subjective:
Had an episode of oxygen saturation overnight-transition to eventually noninvasive mechanical ventilation
This morning feels better
Tachycardia remains an issue
Continues to feel debilitated
Review of Systems
General: Other (n)
Cardiopulmonary: Dyspnea, Dyspnea on Exertion, Cough and Wheezing
GI: Abdominal Pain (n) and Nausea (n)
Objective Data
Data Reviewed
Vital Signs / I&O / Oxygen:
Vital Signs
Temp Pulse Resp BP Pulse Ox
99.4 F 111 16 117/67 96
02/18/25 11:05 02/18/25 11:31 02/18/25 11:31 02/18/25 10:42 02/18/25 11:31
Intake and Output
02/17/25 02/18/25 02/19/25
06:59 06:59 06:59
Intake Total 840 / 840
Output Total 880 / 880
Balance -880 / -880 840 / 840
SaO2 96
Nasal Cannula flow liters per 4
minute
Physical Exam
General: Comfortable
HEENT: Normocephalic
Cardiovascular: S1-S2
Respiratory: Wheeze (Improved but persistent), Other (Overall better air movement) and Other (Prolonged expiratory phase bilaterally)
GI: Soft and Non Distended
Neurology: Awake, Alert, Oriented and No Motor Deficits
Skin: Other (Left upper extremity dressed, hand edema. Good capillary refills. Able to make a fist without pain.)
Labs/Micro/Reports
Lab Data
02/18/25 03:46
02/18/25 03:46
Microbiology
02/14/25 18:35 Blood/Venous Blood Culture - Preliminary
No Growth in 72 hours- Final report to follow
02/14/25 18:22 Blood/Venous Blood Culture - Preliminary
No Growth in 72 hours- Final report to follow
[2025-02-18] MEDS: CARDIZEM PO (12:47)
[2025-02-18] MEDS: LASIX 20 MG IV (16:02)
[2025-02-18] MEDS: NOVOLOG FLEXPEN-MODERATE RESISTANCE 1 UNITS SC (16:07)
[2025-02-18 16:27] LABS: Glucose - Point of Care 152 mg/dl (70-99)
[2025-02-18] MEDS: LOVENOX 30 MG SC (17:42)
[2025-02-18 18:06] LABS: Glucose - Point of Care 187 mg/dl (70-99)
[2025-02-18] MEDS: REMOVE LIDOCAINE PATCH 1 PATCH REMOVE (20:01)
[2025-02-18] MEDS: ZOLOFT 25 MG PO (22:19)
[2025-02-18] MEDS: VALTREX 500 MG PO (22:19)
--- NOTE | 2025-02-18 23:12 | PTCARENOTE ---
Patient received in bed AAOx3 and able to make her needs known. Plan of care for the shift reviewed with the patient. Sinus rhythm on the monitor. SpO2 at 95% on 4L O2/nc. TRUONG. Patient assisted oob to the bedside commode. Tachycardic with ambulation
with HR 115 that resolved once the patient settled. Pt had a BM x2. Night care provided. Left arm dressing is cdi. Pt's spouse is at the bedside. Call colon is within reach.
[2025-02-19] VITALS (15 sets, daily range): BP systolic 103–129; BP diastolic 56–87; PULSE 2–113; BMI 19.7
[2025-02-19 01:01] LABS: Glucose - Point of Care 196 mg/dl (70-99)
[2025-02-19 03:48] LABS: Venous Blood Gas B.E. 18.4 mmol/L (-4 to +4); Venous Blood Gas O2 Sat % 99.5 %
[2025-02-19 04:03] LABS: Hematocrit 33.8 % (37.0-47.0); Hemoglobin 10.0 g/dL (12.0-16.0); Mean Corp Hgb Conc. 29.6 g/dL (33.0-37.0); Mean Corpuscular Volume 93.6 fL (81.0-99.0); Platelet Count 165 10^3/uL (130-400); Red Cell Dist. Width 22.2 % (11.5-14.5)
[2025-02-19 04:05] LABS: Blood Urea Nitrogen 34 mg/dl (7-17); Calcium 9.3 mg/dl (8.4-10.2); Carbon Dioxide 40 mmol/L (22-30); Chloride 102 mmol/L (98-107); Estimated Creatinine Clearance 54 ml/min; Glucose 213 mg/dl (70-99); Potassium 4.8 mmol/L (3.5-5.1); Sodium 142 mmol/L (135-145); eGFR > 60.00
[2025-02-19] MEDS: STERILE WATER FOR INJECTION IV ×3 (04:29→20:34)
[2025-02-19] MEDS: DUONEB 3 ML INH ×4 (07:21→19:48)
[2025-02-19] MEDS: PULMICORT 0.5 MG INH ×2 (07:21→19:48)
[2025-02-19 08:45] LABS: Glucose - Point of Care 138 mg/dl (70-99)
[2025-02-19] MEDS: NOVOLOG FLEXPEN-MODERATE RESISTANCE SC ×2 (08:51→13:10)
[2025-02-19] MEDS: ZITHROMAX 500 MG PO (08:58)
[2025-02-19] MEDS: MUCINEX 1200 MG PO ×2 (08:58→20:33)
[2025-02-19] MEDS: PROTONIX 40 MG PO (08:58)
[2025-02-19] MEDS: LIDOCAINE 4% PATCH 1 PATCH TOPICAL (08:58)
[2025-02-19] MEDS: AUGMENTIN 875 MG/125 MG 1 TABLET PO ×2 (08:58→20:33)
[2025-02-19] MEDS: CARDIZEM 30 MG PO ×3 (08:59→20:33)
[2025-02-19 12:56] LABS: Glucose - Point of Care 147 mg/dl (70-99)
--- NOTE | 2025-02-19 13:08 | W.PN.PUL3 ---
Today's Communication / Plan
-
Decrease Solu-Medrol to 40 mg daily
Hopefully transition to prednisone tomorrow
Continue oxygen supplementation 3 to 5 L
Continue BiPAP 01/03-14 breaths/min backup pressure-advised to use during naps and at bedtime.
Complete antibiotics tomorrow
Physical therapy/Occupational Therapy
Pulmonary will follow
Assessment
-
74 woman with past medical history of advanced COPD. Known to our service from previous admissions. Readmitted with acute hypercapnic respiratory failure due to acute exacerbation of COPD. Placed on BiPAP therapy and transferred to the critical
care unit for further care. We were consulted 02/14/2025.
Dr. Betancourt discussed the case overnight with emergency room, hospitalist and also respiratory therapist for guidance.
Acute on chronic hypercapnic respiratory failure due to acute exacerbation of advanced COPD.
ABG 7.22/110/84 02/14/2025
Chest x-ray 02/14/2025: Hyperinflation. No acute infiltrates.
proBNP 350
Negative cardiac troponin
Leukocytosis: Possibly from steroids.
? Increased phlegm production-perhaps tracheobronchitis.
-
Conditions present prior admission:
Advanced COPD: 4 L nasal cannula, noninvasive mechanical ventilation-chronic hypoxemic and hypercapnic respiratory failure
Up until recently followed at [facility]- Dr. Shi
More recently after discharge in December following locally at [facility]- To see Dr. Mtz 02/15/2025
Rheumatoid arthritis
Chronic anemia
Hypertension
Anxiety
Osteoporosis
Assessment and plan:
Clinically improved: Mental status back to baseline.
VBG 02/16/2025: 7.37/63/148 (baseline)
VB02/19/2025: 7.43/69/174.
Oxygen supplementation between 3 and 5 L-suspect baseline.
Lung exam: Improved-less bronchospasm. Better air movement 02/19/2025.
-
Patient has advanced COPD, poor quality of life, frequent exacerbations-FEV1 around 22%.
Unclear trigger for her acute exacerbation-could be infection/tracheobronchitis.
patient has very limited cardiopulmonary reserve.
-
Continue management for acute exacerbation of COPD:
Continue to decrease Solu-Medrol to total of 40 mg IV daily. 02/19/2025.
Hopefully can transition to prednisone in the next 24 to 48 hours with a slow taper.
-
Given increased phlegm production: Started on cefepime/azithromycin as the patient was recently in the hospital.
Day #6 of antibiotics
Transition azithromycin to p.o. today 02/16/2025 complete total of 7 days
Cefepime discontinued-transition to Augmentin 02/18/2025.
-
Sputum culture if able- Has not been able to produce
Negative influenza/negative blood cultures
Negative COVID
Negative MRSA screening in the past.
-
Continue nebulizer therapy:
Budesonide twice a day, DuoNebs 4 times a day-continue without change.
Hold Spiriva while in the hospital.
-
Acute on chronic hypercapnic respiratory failure, change in mental status-improved back to baseline.
Last ABG 02/14/2025 at 23 25-7.32/89/72.
VBG 02/16/2025-improved back to baseline.
-
Again, patient has significant muscle mass loss and debilitation. High risk for progressing to intubation. Family aware.
Will try to avoid sedatives.
Continue BiPAP settings 01/03. Backup pressure of 14. Seems to be tolerating okay.(Upon discharge will touch base with [employer] -to adjust outpatient mechanical ventilation settings if necessary)
I stressed the point that patient has to use BiPAP during naps and at bedtime. Otherwise CO2 will increase.
-
Given significant metabolic alkalosis: Complete acetazolamide 02/16/2025.
Continue to monitor-May need further dosages while in the hospital depending on acid-base status and clinical situation.
-
Patient did receive 1 dose of Lasix in the emergency room-hold for now. Did not suspect patient is significant volume overloaded on admission.
Does have chronic lower extremity swelling likely due to some degree of cor pulmonale and hypoalbuminemia/immobility.
Atrial fibrillation atrial fibrillation continues to be an issue, cardiology following. Oral Cardizem being titrated slowly. Advised against amiodarone.
Last proBNP increased compared to prior.
1 dose of Lasix was given 02/18/2025.
Defer further diuresis to cardiology and primary team.
-
Left upper arm skin laceration: Unclear whether it was [facility] emergency room.
Continue wound care.
Surgery following-continue local care
Monitor on Lovenox.
-
Rheumatoid arthritis chronic immunosuppression: Actemra/leflunomide.
Currently on hold
At risk for septic shock if there is infection
-
Anxiety/depression: May use benzodiazepine as needed if necessary.
Sertraline
-
Head of the bed elevation
Discussed with family malnutrition risk as the patient has no significant reserve.
Advance diet as tolerated.
Continue with aspiration precaution
-
From my point of view okay to transfer to telemetry. Defer to primary team.
-

Previous correspondence reviewed: Used to follow-up at [facility] (recently. More recently following locally at [facility]-Will be seeing Dr. Mtz or Dr. Guevara in the outpatient
Outpatient COPD regimen includes: Low-dose theophylline
Azithromycin for anti-inflammatory properties
Brovana/budesonide nebulizers
Ipratropium/albuterol nebulizers as needed
Ohtuvayre
Spiriva
On chronic low-dose prednisone therapy
Started on noninvasive mechanical ventilation last admission 12/2024. Has been using 5 to 6 days/week.
-
Dr. Betancourt has updated daughter and extensively on a daily basis at the bedside throughout the course of the hospital stay.
During this hospital stay Dr. Betancourt updated patient to DNR status.
They understand that this patient likely will not do well on mechanical ventilation and likely if intubated will have difficulty weaning off from mechanical ventilation.
-
Pulmonary will continue to follow.
Subjective Data
-
Date of Service:
Date of Service: February 19, 2025
Chief Complaint: Pulmonary Follow Up
Objective Data
Data Reviewed
Vital Signs / I&O / Oxygen:
Vital Signs
Temp Pulse Resp BP Pulse Ox
98.5 F 103 19 120/61 95
02/19/25 12:30 02/19/25 11:33 02/19/25 11:33 02/19/25 08:59 02/19/25 11:33
Intake and Output
02/18/25 02/19/25 02/20/25
06:59 06:59 06:59
Intake Total 840 / 840 660 / 660
Output Total 550 / 550
Balance 840 / 840 110 / 110
SaO2 95
Nasal Cannula flow liters per 2
minute
Physical Exam
General: Respiratory Distress (With activity)
HEENT: Normocephalic
Cardiovascular: Irregular Rhythm
Respiratory: Wheeze (Mild forced expiratory wheezing. Better air movement.)
GI: Soft and Non Distended
Neurology: Awake, Alert and No Motor Deficits
Skin: Warm
Labs/Micro/Reports
Lab Data
02/19/25 03:40
02/19/25 03:40
Microbiology
02/14/25 18:35 Blood/Venous Blood Culture - Preliminary
No Growth in 4 days- Final report to follow
02/14/25 18:22 Blood/Venous Blood Culture - Preliminary
No Growth in 4 days- Final report to follow
[2025-02-19] MEDS: SOLU-MEDROL PF IV (13:10)
[2025-02-19] MEDS: SOLU-MEDROL PF 30 MG IV (15:07)
[2025-02-19] MEDS: LOVENOX 30 MG SC (17:18)
[2025-02-19 17:44] LABS: Glucose - Point of Care 157 mg/dl (70-99)
[2025-02-19] MEDS: NOVOLOG FLEXPEN-MODERATE RESISTANCE 1 UNITS SC (18:07)
--- NOTE | 2025-02-19 19:34 | PTCARENOTE ---
Patient OOB chair. Ambulates in a room with walker with supervision
AAO x 3 Denies pain
Normal Sinus Tachycardia 100-110; BP via Rt upper arm stable (see records )
on 4 L of oxygen. Placed on BIPAP from 3 pm and 5 pm
Voiding in a bathroom
Skin: left arm skin tear: no s/s infection tx per order
--- NOTE | 2025-02-19 19:42 | W.PN.HOSP.TC ---
Addendum entered and electronically signed by Sarthak Comer MD 02/20/25 01:21:
Correction: 's/p IV Methylprednisolone 125mg in ER; continue IV Methylprednisolone --> reduced recently on 02/16/25 from 60 mg IV Q12H to 40 mg IV Q12H --> reduce further to 30 mg IV Q12H on 02/18/25 <del>--></del> <del>reduce</del>
<del>further</del> <del>to</del> <del>Solumedrol</del> <del>IV</del> <del>40</del> <del>mg</del> <del>daily</del> <del>on</del> <del>02/19/25</del>'
Original Note:
Today's Communication/Plan
-
Steroids further reduced, BiPAP is extremely important, continue antibiotics
See plan
Assessment / Plan
Assessment / Plan
Physical Exam
General: Not in acute distress
HEENT: Normocephalic
Respiratory: Scattered wheezing bilaterally
Cardiac: S1/S2 and Regular Rhythm
GI: Soft and Non Tender. Positive bowel sounds.
Musculoskeletal: Other (LLE swelling slightly larger than right )
Skin: Warm and Dry
Neuro: AAO x 3
Psych: Calm
Assessment/Plan
74 yo female with hx severe COPD (FEV1 22%), chronic hypoxic respiratory failure on home oxygen 4L, paroxysmal afib noticed hospitalization 12/2024, NEREYDA, anxiety/depression, essential HTN, former smoker prsents to the ER in respiratory distress and
altered. Patient was placed on BiPAP upon arrival to the ER.History obtained from daughter and at bedside. Patient was prescribed a BiPAP last admission in December. She does not like wearing it but wears 6 nights a week with one night off
per family. Over past two weeks she has had increased fatigue. Patient reports she has had increased sputum production. No nausea/vomiting/diarrhea. She has increased LE swelling per daughter and she hasn't taken her diuretic in 4 days. No
fevers.
74 yo female with hx severe COPD (FEV1 22%), chronic hypoxic respiratory failure on home oxygen 3L rest; 4 with exertion, paroxysmal afib noticed hospitalization 12/2024, NEREYDA, anxiety/depression, essential HTN, former smoker prsents to the ER in
respiratory distress and altered. Patient was placed on BiPAP upon arrival to the ER.
Triage VS: P 116, RR 23, SpO2 80's on 4L, placed on BiPAP
LABS: WBC 12.4, Hg 12.5, PLT 249, Na 143, K+ 4.7, Cl 97, CO2 40, BUN 18, Cr 0.4, Glucose 131, Lactate 0.8, T. Bili 0.5, AST 31, ALT 24, Alk Phos 161, Trop 0.016, BNP 356
Blood gas: 7.16/> 115/ 179; --> 7.20/ 112/ 129
Acute Metabolic Encephalopathy Due to Hypercapnic Respiratory Failure
Severe COPD, Acute Exacerbation
Acute on Chronic Hypoxic and Hypercarbic Respiratory Failure
Chronic Hypoxic Respiratory Failure on 3L rest, 4 with exertion
Former smoker, quit in 2005 40 pack year history
-Mental status back to baseline as of 02/16/25
-Patient has advanced COPD, poor quality of life, frequent exacerbations-FEV1 around 22% -- has very limited cardiopulmonary reserve
-Improved significantly with BiPAP. Continue BiPAP settings 01/03; backup pressure of 14. Seems to be tolerating okay.; but given improvement of mental status okay to take
breaks during the day from BiPAP no longer than 2-3 hours -- should use BiPAP with naps and at bedtime consistently.
-CXR with hyperinflated lungs
-s/p IV Methylprednisolone 125mg in ER; continue IV Methylprednisolone --> reduced recently on 02/16/25 from 60 mg IV Q12H to 40 mg IV Q12H --> reduce further to 30 mg IV Q12H on 02/18/25 -->
reduce further to Solumedrol IV 40 mg daily on 02/19/25
-standing duonebs nebulizer and PRN, Inhaled corticosteroids
-IV Cefepime given severity of COPD and recent hospitalization.
-Cefepime switched to Augmentin.
-Continue daily azithromycin for 1 more day and then transition back to every other day for anti-inflammatory properties
-At home, patient is on daily prednisone, BiPAP qhs and Azithromycin MWF
Metabolic Alkalosis, Likely from Respiratory Acidosis
-Completed course of Acetazolamide
-Avoid sedatives
-Aspiration precautions
Chronic lower extremity swelling likely due to some degree of cor pulmonale and hypovolemia/immobility
-Ultrasound for DVT check was negative
Left Upper Extremity Skin Tear
-Discussed with wound care nurse, consulted surgery
-Surgeon re-applied dressing on 02/17/25; if rebleeding occurs then would place Surgicel gauze over tiny punctum of bleeding at superior aspect
-Elevated hand above heart for swelling
-Okay to resume subq Lovenox for DVT prophylaxis on 02/17/25 -- confirmed reduced dosing given patient's weight, with pharmacy
-Patient's daughter requested surgery to personally look at the patient's LUE wound prior to patient being discharged from the hospital
Paroxysmal Atrial Fibrillation noted admission 01/02/25
-Given hypotension, and outpatient fatigue, home Diltiazem changed to 30 mg BID -- patient needs the Cardizem since would not tolerate rapid A-Fib well
-Appreciate cardio
-Increased on 02/18/25 Cardizem from 30 mg PO BID to 30 mg PO TID given episodes of tachycardia -- can consider ultimately uptitration to 120 mg daily however this can be done as outpatient.
-No Amiodarone or beta tom given pulmonary issues
-Patient's family has declined anticoagulation due to frailty, falls and chronic steroid use.
-Monitor magnesium and electrolytes
-Patient's daughter requested cardiology to see patient one more time before leaving the hospital, although discussion with cardio regarding patient's tele and hemodynamics and cardiac med regimen may suffice
Hyperglycemia
-Suspected from steroids
-Patient's daughter over the weekend wanted Diabetes BUSSER consult prior to discharge -- consult not placed yet due to weekend
Elevated ProBNP on 02/18/25
-Lasix 20 mg on 02/18/25
Rheumatoid Arthritis
-Takes Actemra/leflunomide at home
-Currently on hold
-At risk for septic shock if there is infection
Anxiety/Depression
NEREYDA
- per daughter, patient had recent iron infusions. Monitor Hgb.
Essential Hypertension
-Blood pressures have improved after adjustment in Diltiazem as above
Osteoporosis
DVT Prophylaxis: SCDs. Lovenox subQ
FULL CODE
I spoke to patient's daughter on 02/19/25, 02/18/25, and also spoke to her on 02/16/25, and answered all of her questions and concerns to satisfaction.
Anticipated Discharge: 24 - 48 hours
Subjective/Interval History
-
Date of Service: February 19, 2025
Patient was seen and examined. She appeared to be doing much better today, more alert and interactive.
Objective Data
-
Vital Signs:
Vital Signs
Temp Pulse Resp BP Pulse Ox
98.5 F 99 21 115/54 96
02/19/25 12:30 02/19/25 17:19 02/19/25 14:53 02/19/25 17:19 02/19/25 14:53
I&O
02/18/25 02/19/25 02/20/25
06:59 06:59 06:59
Intake Total 840 / 840 660 / 660
Output Total 550 / 550
Balance 840 / 840 110 / 110
[2025-02-19] MEDS: ZOLOFT 25 MG PO (20:33)
[2025-02-19] MEDS: VALTREX 500 MG PO (20:33)
[2025-02-19] MEDS: REMOVE LIDOCAINE PATCH 1 PATCH REMOVE (20:34)
--- NOTE | 2025-02-19 22:16 | PTCARENOTE ---
Received patient at start of shift, oob to chair. Patient aao x3, spouse at bedside. Patient noted to be dyspneic at rest, pursed lip breathing at times. Pox 93-97% on 4L o2 via n/c. Lung sounds diminished throughout. Patient assist x1 to use bsc
d/to respiratory status. Patient continent of soft, brown bm. LUE dressing remains c/d/i. Call colon within reach, will continue to monitor patient closely.
[2025-02-19 23:03] LABS: Glucose - Point of Care 235 mg/dl (70-99)
[2025-02-20] VITALS (15 sets, daily range): BP systolic 101–151; BP diastolic 54–82; PULSE 2–108
[2025-02-20] MEDS: SOLU-MEDROL PF 30 MG IV ×2 (01:08→14:24)
[2025-02-20] MEDS: STERILE WATER FOR INJECTION IV ×2 (01:08→12:44)
[2025-02-20 05:09] LABS: Hematocrit 33.8 % (37.0-47.0); Hemoglobin 10.1 g/dL (12.0-16.0); Mean Corp Hgb Conc. 29.9 g/dL (33.0-37.0); Mean Corpuscular Volume 92.9 fL (81.0-99.0); Platelet Count 168 10^3/uL (130-400); Red Cell Dist. Width 21.9 % (11.5-14.5)
[2025-02-20 05:31] LABS: Blood Urea Nitrogen 27 mg/dl (7-17); Calcium 9.1 mg/dl (8.4-10.2); Chloride 102 mmol/L (98-107); Estimated Creatinine Clearance 54 ml/min; Glucose 182 mg/dl (70-99); Potassium 5.2 mmol/L (3.5-5.1); Sodium 143 mmol/L (135-145); eGFR > 60.00
[2025-02-20 05:41] LABS: Carbon Dioxide 43 mmol/L (22-30)
[2025-02-20] MEDS: PULMICORT 0.5 MG INH ×2 (07:18→21:28)
[2025-02-20] MEDS: DUONEB 3 ML INH ×5 (07:18→21:28)
[2025-02-20 07:40] LABS: Glucose - Point of Care 184 mg/dl (70-99)
[2025-02-20] MEDS: NOVOLOG FLEXPEN-MODERATE RESISTANCE 1 UNITS SC (09:01)
[2025-02-20] MEDS: LIDOCAINE 4% PATCH 1 PATCH TOPICAL (09:02)
[2025-02-20] MEDS: PROTONIX 40 MG PO (09:03)
[2025-02-20] MEDS: CARDIZEM 30 MG PO ×3 (09:03→21:05)
[2025-02-20] MEDS: MUCINEX 1200 MG PO ×2 (09:03→21:04)
[2025-02-20] MEDS: AUGMENTIN 875 MG/125 MG 1 TABLET PO ×2 (09:03→21:04)
[2025-02-20] MEDS: LOKELMA 5 GRAM PO (09:04)
--- NOTE | 2025-02-20 12:10 | W.PN.PUL3 ---
Today's Communication / Plan
-
- Continue DuoNeb, budesonide and IV steroids
- Recommend hospice evaluation.
- Continue BiPAP nightly and as needed
Assessment
-
74 woman with past medical history of advanced COPD. Known to our service from previous admissions. Readmitted with acute hypercapnic respiratory failure due to acute exacerbation of COPD. Placed on BiPAP therapy and transferred to the critical
care unit for further care. We were consulted 02/14/2025.
Dr. Betancourt discussed the case overnight with emergency room, hospitalist and also respiratory therapist for guidance.
Acute on chronic hypoxic hypercapnic respiratory failure due to acute exacerbation of advanced COPD
Baseline severe COPD (FEV1 22%), chronically O2, home BIPAP and Prednisone dependent, end stage
Hypercapnic encephalopathy, improved with BIPAP
Suspect developing Cor pulmonale with increased BNP and pedal edema
Pulmonary Cachexia
Metabolic alkalosis
-
Conditions present prior admission:
Advanced COPD: 4 L nasal cannula, noninvasive mechanical ventilation-chronic hypoxemic and hypercapnic respiratory failure
Up until recently followed at [facility]- Dr. Shi
More recently after discharge in December following locally at [facility]- Was scheduled to see Dr. Mtz 02/15/2025 btu ended up in the hospital
Rheumatoid arthritis
Chronic anemia
Hypertension
Anxiety
Osteoporosis
Atrial Fibrillation
Assessment and plan:
Patient has baseline severe COPD, end stage, on Maximal medical therapy as out patient
Outpatient COPD regimen includes: Low-dose theophylline, Azithromycin for anti-inflammatory properties, Brovana/budesonide nebulizers, Ipratropium/albuterol nebulizers as needed, Ohtuvayre and Spiriva. Also been on chronic low-dose prednisone
therapy and was started on noninvasive mechanical ventilation last admission 12/2024. Has been using 5 to 6 days/week.
No pneumonia noted on imaging this admission.
Continue Duoneb scheduled along with Budesonide and IV steroids
Nightly BIPAP and additional usage as needed during day time
Patient has end stage COPD with CO2 retention.
Recommend hospice evaluation, poor prognosis.
No infiltrates noted on imaging. d/c antibiotics after 5 days total, then resume chronic Azithromycin home dose
Other medical diagnoses:
- Atrial Fibrillation
- Rheumatoid arthritis on chronic immunosuppression
- Anxiety/depression
Updated daughter and at bedside.
Total time spent on this consultation/encounter __48__ minutes which includes review of history, physical exam, medications, laboratory data, personal review of imaging, extensive review of outpatient records, discussion with care team and
respiratory therapy.
Subjective Data
-
Date of Service:
Date of Service: February 20, 2025
Chief Complaint: Pulmonary Follow Up
Subjective:
Patient sitting in chair, mildly short of breath
Review of Systems
Genitourinary: Other (All 14 systems reviewed and negative except as stated above in the history of present illness.)
Objective Data
Data Reviewed
Vital Signs / I&O / Oxygen:
Vital Signs
Temp Pulse Resp BP Pulse Ox
98.1 F 91 18 116/62 96
02/20/25 07:13 02/20/25 11:49 02/20/25 11:49 02/20/25 10:00 02/20/25 11:49
Intake and Output
02/19/25 02/20/25 02/21/25
06:59 06:59 06:59
Intake Total 660 / 660 120 / 120
Output Total 550 / 550 150 / 150
Balance 110 / 110 -30 / -30
SaO2 96
Nasal Cannula flow liters per 4
minute
Physical Exam
General: Respiratory Distress (With activity)
HEENT: Normocephalic
Cardiovascular: Irregular Rhythm
Respiratory: Wheeze (Bilateral end expiratory wheezing) and Accessory Resp Muscle Use
GI: Soft and Non Distended
Neurology: Awake, Alert and No Motor Deficits
Skin: Warm
Labs/Micro/Reports
Lab Data
02/20/25 04:53
02/20/25 04:53
Microbiology
02/14/25 18:35 Blood/Venous Blood Culture - Final
No Growth - Final Report
02/14/25 18:22 Blood/Venous Blood Culture - Final
No Growth - Final Report
[2025-02-20] MEDS: NOVOLOG FLEXPEN-MODERATE RESISTANCE 3 UNITS SC ×2 (12:18→17:52)
[2025-02-20 12:32] LABS: Glucose - Point of Care 232 mg/dl (70-99)
--- NOTE | 2025-02-20 13:21 | CM ---
CM reviewed pt with attending
Hospice consult placed as pt and family looking for info-only at this time
Bedside meeting with pt, spouse/Melanie and dtr/Paul
Referral made to Hospice per their request
They are requesting hospice music therapy schedule in-person meeting tomorrow for info as they consider GOC
PT with VN VS SNF recs
Pt is current with [facility]
Discharge Disposition- TBD on-going GOC, anticipate home with [facility]A vs Hospice
--- NOTE | 2025-02-20 14:21 | HOSPNOTE ---
Spoke at length with patient, spouse and daughter and they are unsure that hospice is wanted at this time. I reviewed the philosophy and the daughter and patient feel at this time they would like to go home with VN and Palliative. I will continue to
follow if hospice is needed.
--- NOTE | 2025-02-20 15:01 | W.PN.GS2 ---
Addendum entered and electronically signed by Grover Calix MD 02/20/25 19:27:
I saw and examined the patient independently.
The Livestock Rancher's note was reviewed and I agree with the note, assessment and plan except where noted below.
Comment: This is a 74-year-old female with a left upper extremity traumatic skin tear.
Bedside debridement
A team time-out was performed confirming the location/laterality of the procedure, verbal consent and allergies reviewed.
Location: Left upper extremity
Dimensions: 9 x 4 cm
Local: None
[employer]: Ana
The skin was cleaned with alcohol. The necrotic epithelial tissue was excised using scissors until healthy bleeding tissue was encountered. There was no evidence of any infection as this was a fairly superficial degloving injury. The wound was
irrigated with sterile saline and then covered with Vaseline gauze followed by gauze followed by an Abiodun wrap. No specimens were sent to Pathology/Culture. The patient tolerated the procedure well, wound care instructions reviewed and all questions
were answered.
Surgery will sign off for now, please call with any questions or concerns.
Patient to follow-up with me in 2 weeks.
Patient to follow-up with Dr. Franco for ongoing wound care, she will likely need VNA set up.
Original Note:
Today's Communication / Plan
-
local wound care
Assessment / Plan
-
74 yo female being followed by surgical team for LUE skin tears
AFVSS
LUE forearm skin tear clean, superficial and granulating without signs of infection. Necrotic skin sharply debrided at bedside.
LUE upper arm skin tear with intact steris, no drainage.
Plan:
Daily wound care: Forearm skin tear with xeroform or vasoline gauze. Cover this with dry gauze and cover the upper arm wound with dry gauze. Wrap the arm lightly with Kerlix gauze to hold the dressings in place and to avoid using tape on the skin.
Abiodun wrap over the dressing.
Outpatient follow up with surgery and wound center, [facility] for assistance at home.
Subjective Data
-
Date of Service: February 20, 2025
Pt seen and examined at bedside with Dr Philip. RED to chair. Denies pain to left forearm.
Objective Data
-
Intake and Output
02/19/25 02/20/25 02/21/25
06:59 06:59 06:59
Intake Total 660 / 660 120 / 120
Output Total 550 / 550 150 / 150
Balance 110 / 110 -30 / -30
Intake:
Oral fluids 660 / 660 120 / 120
Output:
Urine, Voided 550 / 550 150 / 150
Other:
Number of approximated MODERATE 2 1
amounts of urine
Vital Signs
Temp Pulse Resp BP Pulse Ox
98.2 F 91 18 116/62 96
02/20/25 12:25 02/20/25 11:49 02/20/25 11:49 02/20/25 10:00 02/20/25 11:49
Lab Results
02/20/25 04:53
02/20/25 04:53
Calcium 9.1 mg/dl (8.4-10.2) 02/20/25 04:53
Magnesium 2.5 mg/dl (1.6-2.3) H 02/17/25 03:24
Total Bilirubin 0.5 mg/dl (0.2-1.3) 02/14/25 17:26
AST 31 U/L (14-36) 02/14/25 17:26
ALT 24 U/L (0-35) 02/14/25 17:26
Alkaline Phosphatase 161 U/L (38-126) H 02/14/25 17:26
Total Protein 7.1 g/dl (6.3-8.2) 02/14/25 17:26
Albumin 4.3 g/dl (3.5-5.0) 02/14/25 17:26
Physical Exam
-
NAD
Left forearm with skin tear, granulating without active bleeding. Some necrotic skin present which was sharply debrided. Dressing changed. Left upper arm skin tear with intact steri strips, dressing changed.
--- NOTE | 2025-02-20 15:06 | W.PN.HOSP.TC ---
Today's Communication/Plan
-
Assessment / Plan
Assessment / Plan
NAD, thin and cachectic
Scleral Anicteric
MMM
No JVD
And expiratory wheezing throughout all lung [place]
RRR, S1/S2
Soft, NT, ND, BS+
Warm, Dry
AAOx3
Calm
End-stage COPD exacerbation complicated by acute on chronic hypoxemic hypercapnic respiratory failure due to BiPAP noncompliance was wearing it 6 out of 7 nights.
Continue DuoNebs budesonide IV steroids
Incentive spirometer
Continue goals of care discussion
Had karyna discussion with Ms. Ramirez her daughter Paul and her at bedside.
They tell me that she is not eating much becomes frequently short of breath. I advised to them that unfortunately I am suspecting that this is just progression of disease rather than an acute exacerbation of something underlying that is going on.
Yes she has been in the bed for the last couple of days and that can cause profound deconditioning however she has no cardiopulmonary reserve. She comes tired and short of breath when eating food. She is in pain. Therefore I brought up hospice
after listening to everything that has been going on. They would like to discuss what is hospice and what it entails therefore a consult has been placed and social work has been consulted for this. We discussed quality versus quantity of life. I
believe they were appreciative of this karyna discussion
Total time spent for goals of care discussion 36 minutes
I personally discussed case with pulmonary/smoke inspector to also agrees that she is hospice appropriate at this time.
Hypercapnic encephalopathy secondary to CPAP/BiPAP noncompliance
Continue BiPAP compliance at bedtime as needed naps
Atrial fibrillation paroxysmal
Continue Cardizem
Family has requested cardiology 1 more time
Skin tear left upper forearm
Family has requested to see general surgery
Anxiety
Currently on sertraline
Discussed if went towards hospice then can start Ativan
All questions best answered to my ability
Anticipated Discharge: 24 - 48 hours
Subjective/Interval History
-
Date of Service: February 20, 2025
Seen and examined. Daughter and at bedside.
No new complaints. No acute overnight events.
Wearing BiPAP throughout the night.
Was on breathing treatment when I saw her. Sitting in the chair comfortably.
Daughter states when working with physical therapy was able to use sit and stand 3 times but was not able to get to minimum 5.
Was significantly short of breath going from bed to reclining sofa which was probably 30-40 feet away
Objective Data
-
Labs:
Laboratory Results
02/20/25
04:53
WBC 8.8
Hgb 10.1 L
Hct 33.8 L
Plt Count 168
Sodium 143
Potassium 5.2 H
Chloride 102
Carbon Dioxide 43 H
BUN 27 H
Creatinine 0.4 L
Glucose 182 H
Calcium 9.1
Vital Signs:
Vital Signs
Temp Pulse Resp BP Pulse Ox
98.2 F 91 18 116/62 96
02/20/25 12:25 02/20/25 11:49 02/20/25 11:49 02/20/25 10:00 02/20/25 11:49
I&O
02/19/25 02/20/25 02/21/25
06:59 06:59 06:59
Intake Total 660 / 660 120 / 120
Output Total 550 / 550 150 / 150
Balance 110 / 110 -30 / -30
[2025-02-20] MEDS: LOVENOX 30 MG SC (17:50)
[2025-02-20 18:03] LABS: Glucose - Point of Care 247 mg/dl (70-99)
[2025-02-20] MEDS: VALTREX 500 MG PO (21:05)
[2025-02-20] MEDS: REMOVE LIDOCAINE PATCH 1 PATCH REMOVE (21:05)
[2025-02-20] MEDS: ZOLOFT 25 MG PO (21:05)
[2025-02-20 22:17] LABS: Glucose - Point of Care 203 mg/dl (70-99)
[2025-02-21] VITALS (16 sets, daily range): BP systolic 106–154; BP diastolic 57–76; PULSE 2–76
[2025-02-21] MEDS: SOLU-MEDROL PF 30 MG IV (03:30)
[2025-02-21 04:32] LABS: Blood Urea Nitrogen 23 mg/dl (7-17); Calcium 8.8 mg/dl (8.4-10.2); Chloride 101 mmol/L (98-107); Estimated Creatinine Clearance 54 ml/min; Glucose 145 mg/dl (70-99); Potassium 4.9 mmol/L (3.5-5.1); Sodium 141 mmol/L (135-145); eGFR > 60.00
[2025-02-21 04:43] LABS: Carbon Dioxide 40 mmol/L (22-30)
[2025-02-21] MEDS: PULMICORT 0.5 MG INH ×2 (07:40→20:36)
[2025-02-21] MEDS: DUONEB 3 ML INH ×4 (07:40→20:36)
[2025-02-21] MEDS: MUCINEX 1200 MG PO ×2 (07:59→19:25)
[2025-02-21] MEDS: PROTONIX 40 MG PO (07:59)
[2025-02-21] MEDS: AUGMENTIN 875 MG/125 MG 1 TABLET PO (07:59)
[2025-02-21] MEDS: LIDOCAINE 4% PATCH 1 PATCH TOPICAL (07:59)
[2025-02-21] MEDS: CARDIZEM 30 MG PO ×3 (07:59→21:58)
[2025-02-21 08:26] LABS: Glucose - Point of Care 195 mg/dl (70-99)
[2025-02-21] MEDS: NOVOLOG FLEXPEN-MODERATE RESISTANCE 1 UNITS SC (09:11)
--- NOTE | 2025-02-21 11:18 | W.PN.CARDCBS ---
Today's Communication / Plan
-
No new cardiac recommendations
Will sign off, please call if questions
Impression / Plan
-
Primary Molasses Feed Mixer: Dr. Gonsalez of [facility]
Impression:
End-stage COPD
History of paroxysmal atrial fibrillation
MAT
Rheumatoid arthritis
Vocal cord dysfunction
Migraines
Hypertension
Anxiety
Osteoporosis
Plan:
Regarding her rhythm disturbance, she is stable and rhythm seems adequately controlled on low-dose short acting diltiazem.
She is not anticoagulated related to frailty, patient choice
At present, COPD/pulmonary issues are driving her clinical status.
No changes required from cardiac standpoint.
Currently, under consideration for change in level of care to hospice which in my view would be reasonable.
We will sign off, please call if questions.
Progress Note - Molasses Feed Mixer
Subjective
Date of Service: February 21, 2025:
74-year-old woman with end-stage COPD admitted with acute exacerbation with fatigue, hypertension and falls. Recent similar hospitalization at which time she had paroxysmal atrial flutter, not anticoagulated.
PMH: COPD, low burden atrial flutter, rheumatoid arthritis, migraines, lymphedema, hypertension, anxiety, osteoporosis
Current medications: DuoNebs, Mucinex, Pulmicort, sertraline 25 at bedtime, Valtrex, lidocaine, pantoprazole 40 a day, Lovenox, Augmentin, diltiazem 30 3 times daily, methylprednisolone
120/70, pulse 94, respiratory 20, afebrile, sats 97%, weight is 43.4 kg, diminished breath sounds, daughter at bedside, seems relatively comfortable at rest, regular rate and rhythm, abdomen benign, some edema, JVD okay
Chest x-ray: COPD
EKG: Sinus tachycardia, right atrial enlargement
Hemoglobin 10.1, white count 8.8, platelets 168, potassium 5.2, BUN/creatinine are 27 and 0.4
ECHO 11/14/24: EF 50%, aortic sclerosis, trace mitral and tricuspid insufficiency
Telemetry: Brief runs of atrial tachycardia, but sinus rhythm, PACs
Objective
Labs:
02/20/25 04:53
02/21/25 03:57
Labs
Hgb 10.1 g/dL (12.0-16.0) L 02/20/25 04:53
Hct 33.8 % (37.0-47.0) L 02/20/25 04:53
Plt Count 168 10^3/uL (130-400) 02/20/25 04:53
PT 13.5 Sec (11.4-14.6) 02/15/25 03:23
INR 1.00 02/15/25 03:23
APTT 31.9 Sec (23.4-35.0) 02/15/25 03:23
Sodium 141 mmol/L (135-145) 02/21/25 03:57
Potassium 4.9 mmol/L (3.5-5.1) 02/21/25 03:57
BUN 23 mg/dl (7-17) H 02/21/25 03:57
Creatinine 0.4 mg/dL (0.6-1.0) L 02/21/25 03:57
Glucose 145 mg/dl (70-99) H 02/21/25 03:57
Vital Signs and I&O:
Vital Signs
Temp Pulse Resp BP Pulse Ox
36.6 C 93 20 113/57 98
02/21/25 08:00 02/21/25 11:16 02/21/25 11:16 02/21/25 10:00 02/21/25 11:16
Vital Signs
Temp Pulse Resp BP Pulse Ox
36.6 C 93 20 113/57 98
02/21/25 08:00 02/21/25 11:16 02/21/25 11:16 02/21/25 10:00 02/21/25 11:16
Intake & Output
02/19/25 02/20/25 02/21/2515/25
07:59 07:59 07:59 07:59
Intake Total 660 / 660 120 / 120 240 / 240 240 / 240
Output Total 550 / 550 150 / 150 200 / 200 100 / 100
Balance 110 / 110 -30 / -30 40 / 40 140 / 140
Physical Exam
Physical Exam
See above
--- NOTE | 2025-02-21 12:17 | W.PN.PUL3 ---
Today's Communication / Plan
-
- d/c Augmentin, resume Azithromycin 250 mg MWF
- D/c IV steroids, start Prednisone 30 mg daily PO with slow taper
- Discharge planning
Assessment
-
74 woman with past medical history of advanced COPD. Known to our service from previous admissions. Readmitted with acute hypercapnic respiratory failure due to acute exacerbation of COPD. Placed on BiPAP therapy and transferred to the critical
care unit for further care. We were consulted 02/14/2025.
Dr. Betancourt discussed the case overnight with emergency room, hospitalist and also respiratory therapist for guidance.
Acute on chronic hypoxic hypercapnic respiratory failure due to acute exacerbation of advanced COPD
Baseline severe COPD (FEV1 22%), chronically O2, home BIPAP and Prednisone dependent, end stage
Hypercapnic encephalopathy, improved with BIPAP
Suspect developing Cor pulmonale with increased BNP and pedal edema
Pulmonary Cachexia
Metabolic alkalosis
-
Conditions present prior admission:
Advanced COPD: 4 L nasal cannula, noninvasive mechanical ventilation-chronic hypoxemic and hypercapnic respiratory failure
Up until recently followed at [facility]- Dr. Shi
More recently after discharge in December following locally at [facility]- Was scheduled to see Dr. Mtz 02/15/2025 btu ended up in the hospital
Rheumatoid arthritis
Chronic anemia
Hypertension
Anxiety
Osteoporosis
Atrial Fibrillation
Assessment and plan:
Patient has baseline severe COPD, end stage, on Maximal medical therapy as out patient
Outpatient COPD regimen includes: Low-dose theophylline, Azithromycin for anti-inflammatory properties, Brovana/budesonide nebulizers, Ipratropium/albuterol nebulizers as needed, Ohtuvayre and Spiriva. Also been on chronic low-dose prednisone
therapy and was started on noninvasive mechanical ventilation last admission 12/2024. Has been using 5 to 6 days/week.
No pneumonia noted on imaging this admission.
Continue Duoneb scheduled along with Budesonide. Switch IV steroids to Prednisone 30 mg daily
Nightly BIPAP and additional usage as needed during day time
Patient has end stage COPD with CO2 retention.
Recommend hospice evaluation, poor prognosis.
No infiltrates noted on imaging. d/c Augmentin. Resume Azithromycin M//
Other medical diagnoses:
- Atrial Fibrillation
- Rheumatoid arthritis on chronic immunosuppression
- Anxiety/depression
Updated daughter and at bedside.
Total time spent on this consultation/encounter __38__ minutes which includes review of history, physical exam, medications, laboratory data, personal review of imaging, extensive review of outpatient records, discussion with care team and
respiratory therapy.
Subjective Data
-
Date of Service:
Date of Service: February 21, 2025
Chief Complaint: Pulmonary Follow Up
Subjective:
Essentially unchanged
Review of Systems
Genitourinary: Other (No new symptoms reported)
Objective Data
Data Reviewed
Vital Signs / I&O / Oxygen:
Vital Signs
Temp Pulse Resp BP Pulse Ox
97.8 F 93 20 113/57 98
02/21/25 08:00 02/21/25 11:16 02/21/25 11:16 02/21/25 10:00 02/21/25 11:16
Intake and Output
02/20/25 02/21/25 02/22/25
06:59 06:59 06:59
Intake Total 120 / 120 240 / 240 240 / 240
Output Total 150 / 150 200 / 200 100 / 100
Balance -30 / -30 40 / 40 140 / 140
SaO2 98
Nasal Cannula flow liters per 4
minute
Physical Exam
General: Respiratory Distress (With activity)
HEENT: Normocephalic
Cardiovascular: Irregular Rhythm
Respiratory: Wheeze (Bilateral end expiratory wheezing) and Accessory Resp Muscle Use
GI: Soft and Non Distended
Neurology: Awake, Alert and No Motor Deficits
Skin: Warm
Labs/Micro/Reports
Lab Data
02/20/25 04:53
02/21/25 03:57
Microbiology
02/14/25 18:35 Blood/Venous Blood Culture - Final
No Growth - Final Report
02/14/25 18:22 Blood/Venous Blood Culture - Final
No Growth - Final Report
[2025-02-21] MEDS: NOVOLOG FLEXPEN-MODERATE RESISTANCE SC (13:27)
--- NOTE | 2025-02-21 13:29 | PTCARENOTE ---
spoke with Dr. Mills. peg to discontinue novolog and accu checks.
--- NOTE | 2025-02-21 13:29 | W.PN.HOSP.TC ---
Addendum entered and electronically signed by Sekou Mills MD 02/21/25 14:00:
End stage Copd
Patient is unable to use a walker, cane, or crutch to ambulate more than 100 feet and requires wheelchair. Patient needs a transport wheelchair in order to perform MRADL's. Patient is unable to self propel a wheelchair and therefore requires
transport chair. Patient has caregiver who is able, willing, and available to provide assistance with the transport chair. The patient has adequate space in the home to utilize the wheelchair.
Original Note:
Today's Communication/Plan
-
Assessment / Plan
Assessment / Plan
NAD, thin and cachectic
Scleral Anicteric
MMM
No JVD
And expiratory wheezing throughout all lung [place]
RRR, S1/S2
Soft, NT, ND, BS+
Warm, Dry
AAOx3
Calm
End-stage COPD exacerbation complicated by acute on chronic hypoxemic hypercapnic respiratory failure due to BiPAP noncompliance was wearing it 6 out of 7 nights.
Continue DuoNebs budesonide IV steroids transition to oral steroids and oral azithromycin
Incentive spirometer
Continue goals of care discussion
Hospice conversation completed, not ready for hospice as they are not sure if medications in terms of COPD will be covered
Therefore at this time has not decided on home hospice versus palliative at home
Likely going towards palliative at home for the time being
Mr. Ramirez does state that she finds it hard to breathe and at times as I said does not feel like suffocating and she nodded her head yes
Hypercapnic encephalopathy secondary to CPAP/BiPAP noncompliance
Continue BiPAP compliance at bedtime as needed naps
Atrial fibrillation paroxysmal
Continue Cardizem
Family has requested cardiology 1 more time
Skin tear left upper forearm
Family has requested to see general surgery
Anxiety
Currently on sertraline
Discussed if went towards hospice then can start Ativan
All questions best answered to my ability
Likely discharge tomorrow
Anticipated Discharge: Within 24 hours
Subjective/Interval History
-
Date of Service: February 21, 2025
Seen and examined. No new complaints. No acute overnight events.
Ms. James gupta had a discussion with hospice today. Not sure what decision they will make as they are concerned about breathing treatments of medications being covered by hospice versus insurance
Objective Data
-
Labs:
Laboratory Results
02/21/25
03:57
Sodium 141
Potassium 4.9
Chloride 101
Carbon Dioxide 40 H
BUN 23 H
Creatinine 0.4 L
Glucose 145 H
Calcium 8.8
Vital Signs:
Vital Signs
Temp Pulse Resp BP Pulse Ox
97.7 F 93 20 113/57 98
02/21/25 12:00 02/21/25 11:16 02/21/25 11:16 02/21/25 10:00 02/21/25 11:16
I&O
02/20/25 02/21/25 02/22/25
06:59 06:59 06:59
Intake Total 120 / 120 240 / 240 240 / 240
Output Total 150 / 150 200 / 200 100 / 100
Balance -30 / -30 40 / 40 140 / 140
--- NOTE | 2025-02-21 15:32 | CM ---
Spoke with patient, and daughter concerning discharge POC. Patient to be discharged to home on Thursday02/22/25. Will resume services with [facility] RN, needs wound care also. Referral sent for Palliative Care consult. Bipap settings
need to be adjusted, settings were forwarded to [facility] and they will adjust remotely. Family will bring [employer] in tomorrow for discharge transport. Has O2 set up at home. Daughter will transport home tomorrow. Transport wheelchair ordered with hand
brakes with [employer] and to be delivered to home tomorrow after discharge.
--- NOTE | 2025-02-21 16:19 | PTCARENOTE ---
patient requesting bipap for nap.
--- NOTE | 2025-02-21 16:34 | PN.CDI ---
CDI
- -
CDI:
Physician Documentation Request
Admit Date: 02/14/25 19:49
Dear Doctor Gene,
Please review the following and provide your response in the progress notes.
Clinical Indicators:
Pt admitted with End-stage COPD exacerbation complicated by acute on chronic hypoxemic hypercapnic respiratory failure.
02/14 resourcing consultant in wound care panel noted Bilateral buttock stage 1 pressure injury and Middle back/spine stage 1 pressure injury POA.
Physician documentation of the type and location of wounds is required for compliant documentation. Based on the above clinical findings and your assessment, please provide the following in your progress note:
1. Location of the ulcer/wound, including laterality.
2. Type (etiology) of ulcer/wound:
Bilateral buttock and middle back stage 1 pressure injury POA
Bilateral buttock and middle back non-pressure injury POA
Other
Use of terms such as suspected, likely, concern for, or probable (associated with a specific diagnosis that is being evaluated, monitored, or treated as if it exists) are acceptable and can be coded in the inpatient setting, when documented at the
time of discharge.
Thank you,
Peri Lance RN, BSN
CDI Specialist
[facility] [employer]
Please use your independent medical judgment in providing your response.
*Source: National Pressure Ulcer Advisory Panel (NPUAP)
[2025-02-21] MEDS: LOVENOX 30 MG SC (17:37)
[2025-02-21] MEDS: REMOVE LIDOCAINE PATCH 1 PATCH REMOVE (19:25)
--- NOTE | 2025-02-21 21:00 | PTCARENOTE ---
Received pt at 1900, sitting up in chair, AAOx3. GRAFF but weak. ST with PACs + PVCs on tele. HR 100s. Trace LE edema. Afebrile. On 4L NC. Lungs diminished and coarse throughout. Spo2 99%. + bowel sounds, regular diet, OK appetite per pt. Voiding in
bedside commode with 1 assist. L FA dsg c/d/i. at bedside - updated and questions answered.
[2025-02-21] MEDS: ZOLOFT 25 MG PO (21:59)
[2025-02-21] MEDS: VALTREX 500 MG PO (21:59)
[2025-02-22] VITALS (12 sets, daily range): BP systolic 91–129; BP diastolic 54–94; PULSE 2–117; BMI 21.5
--- NOTE | 2025-02-22 00:46 | PTCARENOTE ---
~2220 pt flipped into afib RVR, HR from 120-170. EKG obtained. AMANDA Rosen notified. Has been flipping in and out of afib/NSR since then. AMANDA aware. HR mostly maintaining 110-130 at this time in afib. Brief periods of HR down in 90s and up to
160s. Monitoring closely. BP stable. Pt. asymptomatic.
[2025-02-22] MEDS: CARDIZEM 2.5 MG IV (02:53)
[2025-02-22 03:18] LABS: Hematocrit 37.0 % (37.0-47.0); Hemoglobin 11.0 g/dL (12.0-16.0); Mean Corp Hgb Conc. 29.7 g/dL (33.0-37.0); Mean Corpuscular Volume 93.2 fL (81.0-99.0); Platelet Count 186 10^3/uL (130-400); Red Cell Dist. Width 21.2 % (11.5-14.5)
[2025-02-22 03:34] LABS: Blood Urea Nitrogen 23 mg/dl (7-17); Calcium 9.1 mg/dl (8.4-10.2); Chloride 99 mmol/L (98-107); Estimated Creatinine Clearance 54 ml/min; Glucose 94 mg/dl (70-99); Magnesium 2.2 mg/dl (1.6-2.3); Potassium 4.6 mmol/L (3.5-5.1); Sodium 140 mmol/L (135-145); eGFR > 60.00
[2025-02-22 03:45] LABS: Carbon Dioxide 45 mmol/L (22-30)
--- NOTE | 2025-02-22 04:19 | PTCARENOTE ---
HR was sustaining >130. CHAIRMAN aware. 2.5mg diltiazem IV ordered and administered at 0253. Pt. now maintaining NSR with PACs, HR 80-90s. BP 91/56 (MAP 74). AM labs drawn. Daughter updated at bedside. Pt. wearing bipap 26/12 with 4L bled through since
about 0030 without issue.
[2025-02-22] MEDS: DUONEB 3 ML INH ×2 (08:15→11:27)
[2025-02-22] MEDS: PULMICORT 0.5 MG INH (08:15)
[2025-02-22] MEDS: LIDOCAINE 4% PATCH 1 PATCH TOPICAL (09:06)
[2025-02-22] MEDS: CARDIZEM 30 MG PO ×2 (09:06→13:12)
[2025-02-22] MEDS: MUCINEX 1200 MG PO (09:06)
[2025-02-22] MEDS: DELTASONE 30 MG PO (09:08)
[2025-02-22] MEDS: PROTONIX 40 MG PO (09:08)
[2025-02-22] MEDS: ZITHROMAX 250 MG PO (09:23)
[2025-02-22 10:43] LABS: Venous Blood Gas B.E. 18.0 mmol/L (-4 to +4); Venous Blood Gas O2 Sat % 99.9 %
--- NOTE | 2025-02-22 10:55 | W.PN.PUL3 ---
Today's Communication / Plan
-
- Resume out patient regimen at discharge along with Prednisone taper
- Continue BIPAP nightly and as needed during day time 26/12
- Outpatient follow-up with [facility] pulmonary clinic
Assessment
-
74 woman with past medical history of advanced COPD. Known to our service from previous admissions. Readmitted with acute hypercapnic respiratory failure due to acute exacerbation of COPD. Placed on BiPAP therapy and transferred to the critical
care unit for further care. We were consulted 02/14/2025.
Dr. Betancourt discussed the case overnight with emergency room, hospitalist and also respiratory therapist for guidance.
Acute on chronic hypoxic hypercapnic respiratory failure due to acute exacerbation of advanced COPD
Baseline severe COPD (FEV1 22%), chronically O2, home BIPAP and Prednisone dependent, end stage
Hypercapnic encephalopathy, improved with BIPAP
Suspect developing Cor pulmonale with increased BNP and pedal edema
Pulmonary Cachexia
Metabolic alkalosis
-
Conditions present prior admission:
Advanced COPD: 4 L nasal cannula, noninvasive mechanical ventilation-chronic hypoxemic and hypercapnic respiratory failure
Up until recently followed at [facility]- Dr. Shi
More recently after discharge in December following locally at [facility]- Was scheduled to see Dr. Mtz 02/15/2025 btu ended up in the hospital
Rheumatoid arthritis
Chronic anemia
Hypertension
Anxiety
Osteoporosis
Atrial Fibrillation
Assessment and plan:
Patient has baseline severe COPD, end stage, on Maximal medical therapy as out patient
Outpatient COPD regimen includes: Low-dose theophylline, Azithromycin for anti-inflammatory properties, Brovana/budesonide nebulizers, Ipratropium/albuterol nebulizers as needed, Ohtuvayre and Spiriva. Also been on chronic low-dose prednisone
therapy and was started on noninvasive mechanical ventilation last admission 12/2024. Has been using 5 to 6 days/week.
No pneumonia noted on imaging this admission.
Continue Duoneb scheduled along with Budesonide. Switched IV steroids to Prednisone 30 mg daily
Nightly BIPAP and additional usage as needed during day time . Updated settings 26/12 with back up rate of 12. New prescription sent to [facility]
Patient has end stage COPD with CO2 retention.
Recommend hospice evaluation, poor prognosis.
No infiltrates noted on imaging. d/c Augmentin. Resumed Azithromycin M//
Patient enrolled with palliative care as outpatient.
We again discussed briefly regarding hospice care.
Other medical diagnoses:
- Atrial Fibrillation/atrial tachycardia
- Rheumatoid arthritis on chronic immunosuppression
- Anxiety/depression
Updated daughter at bedside.
Total time spent on this consultation/encounter __35__ minutes which includes review of history, physical exam, medications, laboratory data, personal review of imaging, extensive review of outpatient records, discussion with care team and
respiratory therapy.
Subjective Data
-
Date of Service:
Date of Service: February 22, 2025
Chief Complaint: Pulmonary Follow Up
Subjective:
Patient comfortably lying in bed in no acute distress. Symptomatically no significant change. Brief tachycardia noted overnight.
Review of Systems
Genitourinary: Other (All 14 systems reviewed and negative except as stated above in the history of present illness.)
Objective Data
Data Reviewed
Vital Signs / I&O / Oxygen:
Vital Signs
Temp Pulse Resp BP Pulse Ox
98.2 F 116 19 108/54 95
02/22/25 07:25 02/22/25 08:17 02/22/25 08:17 02/22/25 06:00 02/22/25 08:17
Intake and Output
02/21/25 02/22/25 02/23/25
06:59 06:59 06:59
Intake Total 240 / 240 240 / 240
Output Total 200 / 200 100 / 100
Balance 40 / 40 140 / 140
SaO2 95
Nasal Cannula flow liters per 4
minute
Physical Exam
General: Respiratory Distress (With activity)
HEENT: Normocephalic
Cardiovascular: Irregular Rhythm
Respiratory: Wheeze (Mild end expiratory wheezing noted. No significant change)
GI: Soft and Non Distended
Neurology: Awake, Alert and No Motor Deficits
Skin: Warm
Labs/Micro/Reports
Lab Data
02/22/25 02:51
02/22/25 02:51
Microbiology
02/14/25 18:35 Blood/Venous Blood Culture - Final
No Growth - Final Report
02/14/25 18:22 Blood/Venous Blood Culture - Final
No Growth - Final Report
--- NOTE | 2025-02-22 12:36 | W.DCSUMMARY ---
Addendum entered and electronically signed by Sekou Mills MD 02/27/25 13:02:
Bilateral buttock and middle back stage 1 pressure injury POA
Original Note:
Discharge Summary
Discharge Data
Date of Admission: 02/14/25
Date of Discharge: 02/22/25
-
Pending Results: No
Hospital Course
Ms. Lucero Ramirez is a 74 yo woman with hx severe COPD (FEV1 22%), chronic hypoxic respiratory failure on home oxygen 4L, paroxysmal afib noticed hospitalization 12/2024, NEREYDA, anxiety/depression, essential HTN
Presented with altered mental status secondary to CO2 retention and was initiated on BiPAP titrated. This believed to occur secondary to noncompliance from wearing it 6 out of the 7 nights. Fortunately, did not require intubation. Started on IV
steroids that was converted to tapering dose of oral prednisone and Azithromycin converted from Oral to IV back to Oral azithromycin. Has a diagnosis of end-stage COPD therefore goals of care discussions was completed and hospice was consulted for
what hospice can and cannot do. Opted against hospice at this time because of COPD medications coverage. Discharge day venous blood gas showed chronic respiratory acidosis 7.39/77/198/46.6
While hospitalized had a brief run of atrial fibrillation with RVR that effected the blood pressure. Diltizem was adjusted per cardiologies recommendations. Outpatient cardiology follow up with [facility] cardiology.
Additionally, when being transported from home to ER sustained a skin tear that surgery evaled for on the RUE. This was cleaned and dressed. Outpatient surgery follow up along with wound care.
CXR
IMPRESSION:
Hyperinflated lungs, suggesting COPD.
Small horizontal linear densities within the lateral aspect of both lower lungs, similar to recent examinations. Findings are suggestive of Fernanda B lines which may be from chronic changes of congestive heart failure. See above discussion.
DVT Study
IMPRESSION: No evidence of deep venous thrombosis bilaterally.
CXR
IMPRESSION:
No acute cardiopulmonary process.
Seen and examined on the day of discharge which was 02/22
Overnight had a brief run of Afib, converted back to SR after cardizem bolus
Family concerned about being downgraded to tele. States if going to tele then will DC home otherwise they would like to stay in the hospital
No new complaints otherwise
NAD, thin and cachectic
Scleral Anicteric
MMM
No JVD
End expiratory wheezing throughout all lung [place]
RRR, S1/S2
Soft, NT, ND, BS+
Warm, Dry
AAOx3
Calm
More than 30 minutes spent in discharge including
Final examination of the patient
Summarizing hospital stay
Instructions for continuing care to all relevant caregivers
Preparation of discharge records, prescriptions, and referral forms
Total time spent (in minutes): 33mins
Discharge Plan
-
Patient Disposition: Home with Home Care
Discharge Diagnosis/Procedures: End stage COPD
Afib with RVR now back in Sinus Rhythm
Condition: Fair
Diet: As tolerated
Activity: As tolerated
Bathing Restrictions: OK to Shower
Wound Care: Remove dressings prior to showering and allow soapy water to gently run over your wounds. Avoid scrubbing. Cover your lower forearm skin tear with xeroform or vasoline gauze. Cover this with dry gauze and cover the upper arm wound with
dry gauze. Wrap the arm lightly with Kerlix gauze to hold the dressings in place and to avoid using tape on the skin. Abiodun wrap over the dressing. Change daily or every other day and as needed.
Activity Restrictions/Additional Instructions:
Presented with altered mental status secondary to CO2 retention and was initiated on BiPAP titrated. This believed to occur secondary to noncompliance from wearing it 6 out of the 7 nights. Fortunately, did not require intubation. Started on IV
steroids that was converted to tapering dose of oral prednisone and Azithromycin converted from Oral to IV back to Oral azithromycin. Has a diagnosis of end-stage COPD therefore goals of care discussions was completed and hospice was consulted for
what hospice can and cannot do. Opted against hospice at this time because of COPD medications coverage.
While hospitalized had a brief run of atrial fibrillation with RVR that effected the blood pressure. Diltizem was adjusted per cardiologies recommendations. Outpatient cardiology follow up with [facility] cardiology.
Additionally, when being transported from home to ER sustained a skin tear that surgery evaled for on the RUE. This was cleaned and dressed. Outpatient surgery follow up along with wound care.
Referrals:
Odalis Maldonado DO [Family Provider, Family Practice]
Grover Calix MD [Active, Surgical] - in one to two weeks
[facility] [Active [facility]]
Additional Discharge Medication Instructions: complete tapering dose of steroids and then resume 5mg steroids
diltiazem take 1 tablet three time a day. If at night HR >100 or Systolic blood pressure (top number of blood pressure) >110 then can take an additional dose
Prescriptions:
New
prednisone 10 mg Tablet
See Taper PO DAILY Qty: 30 0RF
Taper: Prednisone DC Starting at 40 mg daily
30 mg Daily for 5 Days and 0 Hour
20 mg Daily for 5 Days and 0 Hour
10 mg Daily for 5 Days and 0 Hour
pantoprazole 40 mg Tablet,Delayed Release (Dr/Ec)
40 mg PO DAILY Qty: 60 0RF
diltiazem HCl [Cardizem] 30 mg tablet
30 mg PO QID Qty: 120 0RF
Rx Instructions:
take three time daily
if at night HR >100 and Systolic blood pressure >110 then can take 1 additional tab
Continued
ipratropium-albuterol 0.5 mg-3 mg(2.5 mg base)/3 mL Solution For Nebulization
3 ml INHALATION R QID
alendronate 70 mg Tablet
70 mg PO MARTELL
leflunomide 10 mg Tablet
20 mg PO HS
valacyclovir 500 mg Tablet
500 mg PO HS
budesonide 0.5 mg/2 mL Suspension For Nebulization
0.5 mg inhalation R BID
Eugene-24 200 mg Capsule,Extended Release 24hr
200 mg PO HS
arformoterol [Brovana] 15 mcg/2 mL Solution For Nebulization
2 ml INHALATION R BID
Actemra 400 mg/20 mL (20 mg/mL) Solution
400 mg IV Q4W
Spiriva Respimat 2.5 mcg/actuation Mist
2 puff INHALATION R HS
Combivent Respimat 20-100 mcg/actuation Mist
1 puff INHALATION R BIDPRN PRN (Reason: sob)
azithromycin 250 mg tablet
250 mg PO MOWEFR@1999
cyclosporine [Restasis] 0.05 % dropperette
1 drp BOTH EYES BID
spironolactone 25 mg Tablet
25 mg PO DAILYPRN PRN (Reason: blood pressure-when she remembers)
cholecalciferol (vitamin D3) [Vitamin D3] 25 mcg (1,000 unit) Tablet
25 mcg PO MOTUWETHFRSA
ascorbic acid (vitamin C) [Vitamin C] 1,000 mg Tablet
1,000 mg PO QPM
sulfasalazine 500 mg Tablet
500 mg PO BID
cyanocobalamin (vitamin B-12) 50 mcg Tablet
20 mcg PO MOWEFR@1999
albuterol sulfate 90 mcg/actuation Hfa Aerosol Inhaler
2 puff INHALATION R Q4HPRN PRN (Reason: sob)
Ohtuvayre 3 mg/2.5 mL Suspension For Nebulization
2.5 ml INHALATION R BID
Patient Comments:
11/13/2024, pt. fills through [facility].
sertraline 25 mg Tablet
25 mg PO HS
Nurtec ODT 75 mg Tablet,Disintegrating
75 mg PO DAILYPRN PRN (Reason: mirgraines)
torsemide 10 mg Tablet
10 mg PO BID PRN (Reason: fluid retention)
Rx Instructions:
Take one to two tablets orally 1 to 2 times daily,
B12 Active
20 mg PO DAILY
Rx Instructions:
3x a week
clotrimazole 10 mg Trinidad
10 mg MUCOUS MEMBRANE TID PRN (Reason: thrush)
lidocaine [Blue-Emu Lidocaine Patch] 4 % Adhesive Patch,Medicated
1 patch topical
Rx Instructions:
as needed, max 12 hours on
potassium chloride 10 mEq Tablet Extended Release
10 meq PO BID
prednisolone acetate 1 % Drops,Suspension
2 drp OPHTHALMIC (EYE) BID PRN (Reason: EYE)
Rx Instructions:
right eye twice daily for 1 week as needed
lidocaine-aloe vera 0.5 % Gel
1 applic TOPICAL BID PRN (Reason: pain)
iron sucrose 100 mg iron/5 mL Solution
100 mg IV DAILY PRN (Reason: ferritin level less than 80)
minerals Tablet
1 tab PO DAILY
Rx Instructions:
chelated mag 200 mg, 6 x a week
zinc Tablet,Chewable
1 tab PO
Rx Instructions:
30 mg
[id number] lacq samina
1XD PRN (Reason: nail fungus)
gabapentin
100 mg TID PRN (Reason: pain)
mupirocin
PRN (Reason: SKIN ISSUES)
triamcinolone acetonide
PRN (Reason: SKIN ISSUES)
Held
prednisone 5 mg tablet
5 mg PO BID
Hold Instructions: Resume on 03/09/25. Resume on 03/09. Complete tapering dose of steroids
Discontinued
diltiazem HCl 120 mg Capsule,Extended Release 24hr
120 mg PO DAILY Qty: 30 0RF
Discharge Orders:
Discharge Patient (As Directed); Ordered 02/22/25
Ordered By: Sekou Mills
Discharge Date and Time
Print Language: PORTUGUESE
--- NOTE | 2025-02-22 14:00 | PTCARENOTE ---
Received report from RN, assumed care of patient at 1100. Patient resting in bed with daughter at bedside. Hospitalist and [employer] at bedside and discussed possible discharge of patient today, daughter unsure. Patient downgraded to telemetry.
Now agreeable to discharge today with medication changes, orders placed. PO Cardizem ordered for QID on discharge with parameters for last dose, patient given 30mg PO Cardizem at 1312 to keep on schedule for today, see MAR. Discharge order placed,
paperwork printed and reviewed with daughter at bedside. Daughter reviewed medications and instructions with patient. Wound care done on left forearm skin tear as ordered. Wound care supplies and oxygen tubing given to patient/family to be sent home
with. CM at bedside to assist with questions from family. Awaiting arrival of patients for transport and portable oxygen. Care ongoing, vitals stable, call colon within reach.
--- NOTE | 2025-02-22 14:30 | WOUNDNOTE ---
WOC RN NOTE: Patient visited to change dressing on left forearm prior to discharge today. Spoke to patients RNRohit who had just changed dressing and answered all questions. Patient for discharge home today.
--- NOTE | 2025-02-22 15:10 | PTCARENOTE ---
All questions answered at bedside with patient and daughter present. Hygiene care provided by another female RN, clothes changed. IV removed and cannula intact. Patient transported via wheelchair to car with assistance from RN. Placed on home O2
pack in car.
--- NOTE | 2025-02-22 15:39 | CM ---
Patient has been medically cleared for discharge to home with resumption of [facility] RN services, palliative care services, [facility] team to reset Bipap to updated settings, [employer] for transport chair with brakes. Daughter has all phone numbers for
services. Daughter transported home.
== END 2025-02-22 15:26 | disposition home health service (06) | DRG 189 ==
LOC: ICU 19:49
PROVIDERS: Hospitalist; Internal Medicine; Nurse Practitioner Family; Nurse Practitioner Primary Care; Registered Nurse; ADMITTING PHYSICIAN Student in an Organized Health Care Education/Training Program; ATTENDING PHYSICIAN Hospitalist; CONSULT PHYSICIAN Internal Medicine Cardiovascular Disease; CONSULT PHYSICIAN Internal Medicine Critical Care Medicine; CONSULT PHYSICIAN Surgery; EMERGENCY PHYSICIAN Emergency Medicine; FAMILY PHYSICIAN Family Medicine
PROC: 5A09557 Assistance with Respiratory Ventilation, Greater than 96 Consecutive Hours, Continuous Positive Airway Pressure (ICD-10-PCS; 2025-02-14)
DX: J96.22 Acute and chronic respiratory failure with hypercapnia (principal); G93.41 Metabolic encephalopathy; J44.1 Chronic obstructive pulmonary disease with (acute) exacerbation; E87.4 Mixed disorder of acid-base balance; D84.9 Immunodeficiency, unspecified; R64 Cachexia; Z68.1 Body mass index [BMI] 19.9 or less, adult; Z87.891 Personal history of nicotine dependence; J96.21 Acute and chronic respiratory failure with hypoxia; Z66 Do not resuscitate; I48.0 Paroxysmal atrial fibrillation; M06.9 Rheumatoid arthritis, unspecified; F41.9 Anxiety disorder, unspecified; F32.A Depression, unspecified; I10 Essential (primary) hypertension; M81.0 Age-related osteoporosis without current pathological fracture; S41.112A Laceration without foreign body of left upper arm, initial encounter; Z79.899 Other long term (current) drug therapy; Z91.148 Patient's other noncompliance with medication regimen for other reason; Z99.81 Dependence on supplemental oxygen; X58.XXXA Exposure to other specified factors, initial encounter; L89.101 Pressure ulcer of unspecified part of back, stage 1; L89.321 Pressure ulcer of left buttock, stage 1; L89.311 Pressure ulcer of right buttock, stage 1
CPT/HCPCS: 36600; 71045; 80048; 80053; 82805; 82962; 83605; 83735; 83880; 84484; 85025; 85027; 85610; 85730; 87040; 87502; 87811; 93005; 93970; 94640; 94660; 96365; 96375; 97110; 97163; 97167; 97530; 97535; 99291

== ENCOUNTER 2025-03-21 04:57 | Inpatient (IN) | payer MEDICARE, SELFPAY ==
[2025-03-21] VITALS (34 sets, daily range): BP systolic 94–143; BP diastolic 55–95; PULSE 2–99; BMI 17.2; BMI 17.1
--- NOTE | 2025-03-21 03:12 | ED.GENMED ---
History of Present Illness
General
Chief Complaint: Breathing Problem
Time Seen by Provider: 03/21/25 02:53
History of Present Illness
History of Present Illness:
74-year-old female with history of severe COPD (FEV1 22%), chronic hypoxic respiratory failure on home oxygen 4L, paroxysmal afib, NEREYDA, anxiety/depression, essential HTN presenting to the emergency department for shortness of breath. Patient
reports throughout the day she was feeling generally unwell, and symptoms worsened into the night. Notes recent hospitalization for COPD. Patient admitted from 02/14 to 02/22, did require ICU admission on BiPAP. Patient has been using the BiPAP at
home. Notes that she has been coughing, without significant change. Denies fever. Denies chest pain. Denies any history of intubations in the past. Patient arrives by medics, noted to be hypoxic to the 70s on arrival. Received 1 DuoNeb and
steroids and route with improvement. Denies additional acute medical complaints
Past History
Past History
ED Past Medical History: COPD (emphysema) and Other (anemia, RA, Migraines, )
ED Past Surgical History: , Gynecological (Hysterectomy, Fibroid removed, ), Orthopedic (Right wrist surgery, Left tibial fracture) and Other (Dental surgery cataracts, )
Social History
Tobacco: Former smoker
Alcohol: None
Drug: None
Personal:
Living: with family
Employment: Other
Family History
Family History: Other
Phy Exam
Physical Exam
Physical Exam:
General: Well-appearing, no clinical signs of dehydration, nontoxic and in no acute distress
HEENT: protecting airway
Neck: appears supple
CV: Tachycardic, regular rhythm, no evidence of cyanosis
Resp: Tachypneic with diminished air movement bilateral
Abd: Soft and non-distended, no tenderness to palpation, normal bowel sounds
Extremities: No deformities, no swelling, no erythema, pulses and sensation intact
Neuro: alert, no focal neurologic deficit
: deferred
Rectal: deferred
Psych: Normal affect
Skin: Intact
Scores
Heart Failure Risk
Heart Failure Risk Score: Not Applicable
Course
Orders/Labs/Results
Orders:
Orders
03/21/25 03:00
Electrocardiogram (*1) Urgent
Reason for Study: Chest Pain
EKG- Treatment ONCE
03/21/25 03:01
Bipap [RESP] Urgent
Patient to use own unit?: No
Inspiratory Pressure (cm H2O): 10
Expiratory Pressure (cm H2O): 5
03/21/25 03:02
Ipratropium/Albuterol Sulfate [Duoneb] 3 ml INH R NOW ONE
03/21/25 03:03
Ipratropium/Albuterol Sulfate [Duoneb] 3 ml INH R NOW ONE
03/21/25 03:09
Complete Blood Count/With Diff Urgent
Venous Blood Gas Urgent
%Oxygen/Room Air: 50
03/21/25 03:12
Ipratropium/Albuterol Sulfate [Duoneb] 3 ml .ROUTE .STK-MED ONE
03/21/25 03:17
CR Chest Portable - 1 View Urgent
Comment:
Reason For Exam: copd, sob
Reason Study Needs to be Portable: Patient Unstable
03/21/25 03:52
COVID-19 Antigen Urgent
Source: Nasal Swab
Comprehensive Metabolic Panel Urgent
Comment: REDRAW
Influenza A+B Rapid Molecular Urgent
TATE Source: Nasal Swab
Specimen Description:
03/21/25 04:34
Admit/Transfer Patient As Directed
Co-Sign Provider:
Level of Care: Inpatient admission
Assign to:: ICU
Physician / Group: Yris
Diagnosis: Acute on chronic respiratory failure
Reason for Hospitalization: hypercarbic and hypoxic respiratory failure
Expected length of stay greater than two midnights?: Yes
ELOS- Estimated Length of Stay in days: 2
I certify the patient meets the requirements for IP care: Yes
PRN Pain Medication Management As Directed
May give lesser potent ordered pain med per pt: Yes
preference::
Protocol:: Medication orders for pain may be administered in a
manner that supports deferring to patient preference
when the pt is:
- Requesting an ordered lesser potent pain medication.
Least to most potent pain medications are defined
as: acetaminophen < NSAID < tramadol < opioids
(morphine, oxycodone, hydromorphone).
- Requesting a lesser dose of the same medication IF
ORDERED.
- Requesting a less intrusive route of administration
if both routes are prescribed by the provider (PO <
IV).
03/21/25 04:37
Code Status As Directed
Resuscitation Status: Do not resuscitate
Reached after discussion with pt or family/Healthcare POA: Yes
DNR Bracelet Application ONCE
03/21/25 04:50
ABG [Arterial Blood Gas] Routine
%Oxygen/Room Air: 10 L
Comment: 1 hour after initiation of bipap
Abnormal Lab Results
03/21/25 03/21/25 03/21/25
03:09 03:52 04:50
MCHC 30.1 L g/dL
(33.0-37.0)
RDW 17.9 H %
(11.5-14.5)
Absolute Neuts (auto) 7.4 H 10^3/uL
(1.4-6.5)
Absolute Lymphs (auto) 0.6 L 10^3/uL
(1.2-3.4)
Absolute Monos (auto) 1.2 H 10^3/uL
(0.1-0.6)
Neutrophils % 78.4 H %
(42.2-75.2)
Lymphocytes % 6.8 L %
(20.5-51.1)
Monocytes % 13.0 H %
(1.7-9.3)
pH 7.33 L
(7.35-7.45)
pCO2 77 H* mmHg
(32-35)
pO2 60 L mmHg
(83-108)
HCO3 40.6 H* mmol/L
(21-28)
ABG O2 Sat (Measured) 92.7 L %
(94-98)
VBG pH 7.24 L
(7.32-7.43)
VBG pCO2 95 H* mmHg
(35-48)
VBG pO2 72 H mmHg
(30-50)
VBG HCO3 40.7 H mmol/L
(22-27)
Carbon Dioxide 39 H mmol/L
(22-30)
Creatinine 0.4 L mg/dL
(0.6-1.0)
Glucose 132 H mg/dl
(70-99)
Total Protein 5.9 L g/dl
(6.3-8.2)
03/21/25 03:09
03/21/25 03:52
Vital Signs
Initial and Last Documented VS:
Initial Vital Signs
Temp Pulse Resp BP Pulse Ox
97.8 F 122 26 128/55 91
03/21/25 03:00 03/21/25 03:00 03/21/25 03:00 03/21/25 03:00 03/21/25 03:00
Last Documented Vital Signs
Temp Pulse Resp BP Pulse Ox
97.8 F 111 35 104/64 94
03/21/25 03:00 03/21/25 04:45 03/21/25 06:00 03/21/25 06:00 03/21/25 06:00
MDM/Problems Addressed
MDM/Problems Addressed:
74-year-old female with severe COPD (FEV1 22%), chronic hypoxic respiratory failure on home oxygen 4L, paroxysmal afib, NEREYDA, anxiety/depression, essential HTN presenting for dyspnea. Vital signs on arrival are significant for tachycardia and
hypoxia.
On exam, patient in moderate respiratory distress with increased work of breathing, diminished air movement bilaterally. Given known severe end-stage COPD, suspected acute on chronic COPD. Given presenting hypoxia and work of breathing, will start
patient on BiPAP. Patient received steroids prior to arrival. Will administer additional DuoNebs and obtain laboratory analysis and chest x-ray imaging. PE is also consideration, however clinically appears more consistent with COPD. Will
continue to closely monitor. Goals of care discussion had with patient, DNI
03:40 -patient is improving clinically on BiPAP. VBG is consistent with respiratory acidosis. Chest x-ray appears unchanged. Will continue DuoNebs with plan for admission for acute on chronic COPD
*Pulse Oximetry
SaO2: 96
Nasal Cannula flow liters per minute: 6
Patient hypoxic: yes
*Critical Care Note
Total Time (30-74mins, 75-104mins- exclusive of procedures): 36
comment:
The high probability of a clinically significant, sudden or life threatening deterioration of the respiratory system(s) required my full and direct attention, intervention and personal management. The aggregate critical care time was 36 minutes.
This time is in addition to time spent performing reported procedures but includes the following:
[x] Data Review and interpretation
[x] Patient assessment and monitoring of vital signs
[x] Documentation
[x] Medication orders and management
ED Attending Note
-
Portions of this chart may have been created with voice recognition software.� Occasional wrong word or��sound alike� substitutions may have occurred due to the inherent limitations of voice recognition software.
Discharge Plan
Departure
Patient Disposition: Admit
Date of Disposition: 03/21/25
Time of Disposition: 03:44
Presentation/result/management discussed w/ accepting MD/DO: Hospitalist
Condition: Critical
Discharge Problem:
Acute exacerbation of chronic obstructive pulmonary disease, Acute and chronic respiratory failure with hypercapnia
Interventions
Interventions:
*Risk Screen - Suicide Last Done: 03/21/25 03:03
*General Assessment Last Done: 03/21/25 03:03
*Neglect/Abuse Screening Last Done: 03/21/25 03:03
*ED- Fall Risk Assessment Last Done: 03/21/25 03:02
*ED COVID-19 Vaccine History Last Done: 03/21/25 03:02
*ED Influenza Vaccine History Last Done: 03/21/25 03:02
ED- Cardiac Assessment Last Done: 03/21/25 03:05
ED- Pulmonary Assessment Last Done: 03/21/25 03:05
[2025-03-21] MEDS: DUONEB 3 ML INH ×6 (03:17→20:09)
[2025-03-21 03:20] LABS: Hematocrit 40.9 % (37.0-47.0); Hemoglobin 12.3 g/dL (12.0-16.0); Mean Corp Hgb Conc. 30.1 g/dL (33.0-37.0); Mean Corpuscular Volume 95.1 fL (81.0-99.0); Nucleated Red Blood Cells % 0 %; Platelet Count 262 10^3/uL (130-400); Red Cell Dist. Width 17.9 % (11.5-14.5)
[2025-03-21 03:28] LABS: Venous Blood Gas B.E. 9.5 mmol/L (-4 to +4); Venous Blood Gas O2 Sat % 95.8 %
[2025-03-21 03:29] LABS: Venous Blood Gas O2 Therapy 50
--- NOTE | 2025-03-21 04:10 | HPS.HSE ---
Family Physician
-
Family Physician:
Chief Complaint
-
Shortness of breath
History of Present Illness
This a 74-year-old female with history of severe COPD, chronic hypoxic and hypercarbic respiratory failure on 4 L home O2, paroxysmal atrial fibrillation during episode of COPD exacerbation, iron deficiency and anemia on iron sucrose infusions,
hypertension, anxiety and depression presents to the emergency department with rapid worsening of her respiratory status over the last 4 days.
Patient has had 2 recent admissions for severe hypercarbic and hypoxic respiratory failure. During the last admission she was almost intubated for severe hypercapnia and hypoxia both ultimately pulm control. She decided she does not want to be
intubated and was DNR at that time. She was seen by hospice but she did not want to start hospice yet. Ultimately the patient was discharged on updated home BiPAP of 18/8 w/ rate of 12, continued 3 to 6 L home O2, prolonged taper and continued
home medication.
Family reported that with the BiPAP oxygen medications PLAN REP patient was managing well at home. She was doing well up until 4 days ago. She had a cough but she started becoming more lethargic and was unable to perform therapy as previous. Did not
read that she did have similar decline in the past. She has no fevers or chills. Has been no sick contacts. She had no recent travel. She denies any swelling of her extremities. She continued to decline. On Thursday morning she woke up and was
able to eat breakfast and talk to family members but at the day progressed she was speaking less and less. He was unable to even use at home nebulizer treatment prior to putting on a BiPAP. Spouse called family members later on the evening to
states she was not doing well. They did make a call to the pulmonary doctor and ultimately decided to bring her to the emergency department.
When EMS arrived patient was satting 80% on 4 L with high work of breathing and decreased responsiveness. She was given a DuoNeb, Decadron and she did improve to 97% on 2 L though still speaking in short sentences.
On arrival in the ED when I saw the patient she was afebrile, she is currently satting around 93% on 10 L on a BiPAP. Blood pressure is 128/55 and she is tachycardic to 123. ECG shows sinus tachycardia at a rate of 120. Chest x-ray consistent
with emphysema, no new infiltrates. No effusion. CBC she has white count of 9.4 hemoglobin and platelets were normal. Gas showed 7.24/94 on VBG. COVID test is pending.
Medical History
Past Medical History
Past Medical History: Reports Other (COPD-severe on chronic O2. Migraines. Chronic lower extremity lymphedema. Anxiety. Osteoporosis. Rheumatoid Tritus. Anemia. Hypertension. Prediabetes. . Hysterectomy. Right wrist surgery. Left
tibial fracture surgery. Dental surgery. Cataract.)
Past Surgical History: Reports Other
Social History
Tobacco: Former Smoker ([id number], quit start 2005)
Alcohol: None
Drug: None
Personal:
Living: With Family
Family History
Family History: Not pertinent
Allergies / Home Medications
Allergies reflects when Allergies were last updated in [facility].
Home Medications with original date entered in [facility]
Allergy/Medication List:
Allergies
Allergy/AdvReac Type Severity Reaction Status Date / Time
mannitol (From Reclast) Allergy Swelling Verified 12/23/24 12:28
water for injection,sterile Allergy Swelling Verified 12/23/24 12:28
(From Reclast)
zoledronic acid (From Allergy Swelling Verified 12/23/24 12:28
Reclast)
Home Medications
alendronate 70 mg tablet 70 mg PO MARTELL osteoporosis 06/27/23
arformoterol 15 mcg/2 mL solution for nebulization (Brovana) 2 ml inhalation R BID 06/27/23
azithromycin 250 mg tablet 250 mg PO MOWEFR copd 06/27/23
budesonide 0.5 mg/2 mL suspension for nebulization 0.5 mg inhalation R BID 06/27/23
cyclosporine 0.05 % eye drops in a dropperette (Restasis) 1 drp BOTH EYES BID dry eyes 06/27/23
ipratropium 0.5 mg-albuterol 3 mg (2.5 mg base)/3 mL nebulization soln 3 ml inhalation R QID 06/27/23
ipratropium 20 mcg-albuterol 100 mcg/actuation mist for inhalation (Combivent Respimat) 1 puff inhalation R QIDPRN PRN sob 06/27/23
leflunomide 10 mg tablet 20 mg PO HS rheumatoid arthritis 06/27/23
lidocaine 4 % topical patch 1 patch topical DAILYPRN PRN L knee & L hip 06/27/23
theophylline 200 mg capsule,extended release 24 hr (Eugene-24) 200 mg PO HS copd 06/27/23
tiotropium bromide 2.5 mcg/actuation mist for inhalation (Spiriva Respimat) 2 puff inhalation R HS copd 06/27/23
tocilizumab 400 mg/20 mL (20 mg/mL) intravenous solution (Actemra) 400 mg IV Q4W rheumatoid arthritis 06/27/23
valacyclovir 500 mg tablet 500 mg PO HS viral infection 06/27/23
cholecalciferol (vitamin D3) 25 mcg (1,000 unit) tablet (Vitamin D3) 25 mcg PO MOTUWETHFRSA Supplement 07/16/23
spironolactone 25 mg tablet 25 mg PO DAILYPRN PRN blood pressure 07/16/23
therapeutic multivitamin 1 tab PO MOWEFR Supplement 07/16/23
torsemide 20 mg tablet 20 mg PO DAILYPRN PRN edema 07/16/23
Chelated Magnesium 200 mg PO MOTUWETHFRSA 11/13/24
albuterol sulfate 90 mcg/actuation aerosol inhaler 2 puff inhalation R Q4HPRN PRN sob 11/13/24
ascorbic acid (vitamin C) 1,000 mg tablet (Vitamin C) 1,000 mg PO MOTUWETHFRSA 11/13/24
cyanocobalamin (vitamin B-12) 50 mcg tablet 50 mcg PO MOWEFR 11/13/24
ensifentrine 3 mg/2.5 mL suspension for nebulization (Ohtuvayre) 2.5 ml inhalation R BID 11/13/24
methylcellulose (laxative) 500 mg tablet (Citrucel) 1,000 mg PO DAILY 11/13/24
potassium chloride 10 mEq tablet,extended release 10 meq PO DAILYPRN PRN supplement 11/13/24
prednisone 5 mg tablet 5 mg PO HS rheumatoid arthritis 11/13/24
sulfasalazine 500 mg tablet 500 mg PO BID 11/13/24
zinc 30 mg PO MOWEFR 11/13/24
prednisone 20 mg tablet 40 mg (2 x 20 mg) PO DAILY #8 tabs 11/14/24
Review of Systems
-
Unable to obtain full review of systems at this time due to: Acuity
Physical Exam
Vital Signs
Vital Signs
Temp Pulse Resp BP Pulse Ox
97.8 F 123 22 128/55 96
03/21/25 03:00 03/21/25 03:09 03/21/25 03:09 03/21/25 03:00 03/21/25 03:17
Physical Exam
General: Respiratory Distress, Appears in Distress and Appears Chronically Ill
HEENT: NormoCephalic, Moist mucous membranes, Atraumatic, PERRLA and Other (BIPAP)
Respiratory: Clear and Decreased Breath Sounds (Markedly diminished breath sounds even on BiPAP)
Cardiac: S1/S2, Regular Rhythm and Tachycardia; No Murmur or Rub
GI: Soft, Non Tender, Non Distended and Normal Bowel Sounds; No Organomegaly
Rectal: Deferred by Provider
Musculoskeletal: No Clubbing, No Cyanosis and No Edema
Skin: No Rash
Neuro: Nonfocal/grossly intact
Psych: Calm
Laboratory Results
-
03/21/25 03:09
Laboratory Results
Total Bilirubin Cancelled 03/21/25 03:09
AST Cancelled 03/21/25 03:09
ALT Cancelled 03/21/25 03:09
Alkaline Phosphatase Cancelled 03/21/25 03:09
Data Reviewed
-
Diagnostic Radiology: Image Personally Visualized and interpreted
Medical Tests (Nuc Med, Echo, EKG etc): Image Personally Visualized and interpreted
Lab Data: Labs Reviewed by me
Old Records: Reviewed
Impression/Plan
-
IMPRESSION:
74-year-old with advanced COPD, 4 L oxygen dependence, BiPAP dependence, on chronic steroids as well as chronic azithromycin, a 51 less than 22%, proximal atrial fibrillation, hypertension, anxiety, recent admission for hypercarbic and hypoxic
respiratory failure presenting to the emergency department with worsening shortness of breath over the last 4 days and found to be in hypercarbic and hypoxic respiratory failure. Patient and family reports compliance with medication regimen as well
as the BiPAP and oxygen. No clear evidence of acute infection. There is no cough no fevers no chills no known sick contacts. COVID test is negative. WBC is 9.7 the rest of the labs are unremarkable. Chest x-ray is similar to prior consistent
with severe emphysematous lung disease without any acute infiltrates pulmonary edema or pleural effusions or pneumothorax. Work of breathing was initially slightly improved on BiPAP. She has acute on chronic respiratory acidosis with a pH of
7.24/94 on venous blood gas
PLAN:
COPD exacerbation with hypercarbic respiratory failure
- Admit to ICU for now
-Continue BiPAP 18/8 with a rate of 12
- Although she seems to be settling on BiPAP she is still quite critical and did not benefit from NIV during last admission for hypoxia.
-N.p.o. for now
-Repeat gas in 1 hour, if hypoxic on BiPAP and 10 L of oxygen we will start NIV
-Not seeing any evidence of an acute infectious process. Will check flu. Will hold off on new antibiotics
-Continue IV azithromycin to 50 mg daily for now
-IV Solu-Medrol 40 mg Q6
-Continue bronchodilators therapies including long-acting beta agonist and inhaled corticosteroids
� Continue DuoNeb
� Continue tiotropium
� Continue oral theophylline.
� Pulmonary consultation
Paroxysmal atrial fibrillation -currently sinus tachycardia
-Will continue diltiazem
� Patient not requiring anticoagulation at this time
DVT prophylaxis�Lovenox subcu
CODE STATUS�DNR
[2025-03-21 04:15] LABS: COVID-19 Antigen Negative (Negative)
[2025-03-21 04:45] LABS: ALT (SGPT) 26 U/L (0-35); AST (SGOT) 25 U/L (14-36); Albumin 3.8 g/dl (3.5-5.0); Alkaline Phosphatase 123 U/L (38-126); Blood Urea Nitrogen 16 mg/dl (7-17); Calcium 9.5 mg/dl (8.4-10.2); Chloride 101 mmol/L (98-107); Estimated Creatinine Clearance 53 ml/min; Glucose 132 mg/dl (70-99); Potassium 4.0 mmol/L (3.5-5.1); Sodium 145 mmol/L (135-145); Total Protein 5.9 g/dl (6.3-8.2); eGFR > 60.00
[2025-03-21 05:03] LABS: Carbon Dioxide 39 mmol/L (22-30)
[2025-03-21 05:15] LABS: B.E. 11.7 mmol/L; O2 Saturation % 92.7 % (94-98); PO2 60 mmHg (83-108)
[2025-03-21 05:16] LABS: O2 Therapy 10 L
[2025-03-21 05:17] LABS: HCO3 40.6 mmol/L (21-28); PCO2 77 mmHg (32-35)
[2025-03-21 06:52] LABS: Glucose - Point of Care 111 mg/dl (70-99)
[2025-03-21] MEDS: PULMICORT 0.5 MG INH ×2 (07:45→20:09)
[2025-03-21] MEDS: ZITHROMAX 252.5 MG IV (07:53)
[2025-03-21] MEDS: CARDIZEM CD 120 MG PO (07:53)
[2025-03-21] MEDS: SOLU-MEDROL PF 40 MG IV ×2 (07:54→21:27)
[2025-03-21] MEDS: D5/0.45%NACL 1000 IV (07:54)
--- NOTE | 2025-03-21 09:15 | PTCARENOTE ---
pt wakes to name states no pain. on bipap with 4l nc. breath sounds diminished with fine ex wheezes. pt daughter and at bedside reviewed pt condition and plan of care.
--- NOTE | 2025-03-21 10:44 | W.PN.UPDATE ---
Update Note
Progress Note Update
Seen and admitted by this am.
Adx for acute on chronic hypoxemic hypercapnic respiratory failure and possible COPD flare.
On BIPAP but awakable . Oriented to place and person. Falls back to sleep. Apparently did not get a sleep last night. She got admitted in the early hours of morning.
No respiratory distress.
Family at bedside. Continue the current treatment. Patient on chronic Zithromax prophylaxis will switch to doxycycline antibiotics will possible COPD flare.
Continue with steroids per pulmonary
Daughter prefers regular release Cardizem as she was doing better on that.
Obtain wound with speech consult.
Improving respiratory acidosis and the CO2.
Continue with ICU level of care
--- NOTE | 2025-03-21 11:53 | CON.INTV ---
Consultation
Consultation Request
Date/Time Consultation Requested: 03/21/2025640
Date/Time Consultation Performed: 03/21/2025931
Requesting Provider: Dr. Arndt
Performing Provider: Dr. Clemons
Reason for Consultation: COPD exacerbation/acute hypercapnia
Medical History
-
Chief Complaint: SOB
History of Present Illness:
74-year-old female with a past medical history of severe COPD with chronic hypoxic + hypercapnic respite failure on home O2 + BiPAP who presents with SOB for 3-4 days. Patient's been using her BiPAP at home. She increasingly became lethargic and
was unable to perform therapy as she did previously. When patient arrived here in the ER she was short of breath and hypoxic to 80% on 4 L/min. Blood gas showed acute hypercapnia, and she was started on BiPAP and admitted to the ICU for closer
monitoring with general activities therapist/pulmonary service consulted for additional recommendations.
Past Medical History
Past Medical History: Other (See assessment)
Past Surgical History: Other (See assessment)
Social History
Tobacco: Former Smoker (35-[id number]-xuam history, quit 2005)
Alcohol: None
Drug: None
Personal:
Living: With Family
Family History
Family History: Reviewed & Not Pertinent
Allergies / Home Medications
Allergies
Allergy/AdvReac Type Severity Reaction Status Date / Time
mannitol (From Reclast) Allergy Swelling Verified 12/23/24 12:28
zoledronic acid (From Allergy Swelling Verified 12/23/24 12:28
Reclast)
Home Medications
�Medication �Instructions �Recorded �Confirmed �Last Taken �Type
arformoterol 15 mcg/2 mL solution 2 ml inhalation R BID 06/27/23 03/21/25 12/23/24 History
for nebulization (Brovana) Lung/Breathing Issues
azithromycin 250 mg tablet 250 mg PO MOWEFR@1999 copd 06/27/23 03/21/25 12/21/24 History
budesonide 0.5 mg/2 mL suspension 0.5 mg inhalation R BID 06/27/23 03/21/25 12/23/24 History
for nebulization Lung/Breathing Issues
cyclosporine 0.05 % eye drops in a 1 drp BOTH EYES BID dry eyes 06/27/23 03/21/25 12/23/24 History
dropperette (Restasis)
ipratropium 0.5 mg-albuterol 3 mg 3 ml inhalation R QID 06/27/23 03/21/25 12/23/24 History
(2.5 mg base)/3 mL nebulization Lung/Breathing Issues
soln
ipratropium 20 mcg-albuterol 100 1 puff inhalation R BIDPRN PRN sob 06/27/23 03/21/25 1 Week Ago History
mcg/actuation mist for inhalation ~11/06/24
(Combivent Respimat)
theophylline 200 mg 200 mg PO HS copd 06/27/23 03/21/25 12/22/24 History
capsule,extended release 24 hr
(Eugene-24)
tiotropium bromide 2.5 2 puff inhalation R HS copd 06/27/23 03/21/25 11/12/24 History
mcg/actuation mist for inhalation
(Spiriva Respimat)
valacyclovir 500 mg tablet 500 mg PO HS viral infection 06/27/23 03/21/25 12/22/24 History
cholecalciferol (vitamin D3) 25 25 mcg PO MOTUWETHFRSA Supplement 07/16/23 03/21/25 11/12/24 History
mcg (1,000 unit) tablet (Vitamin
D3)
spironolactone 25 mg tablet 25 mg PO DAILYPRN PRN blood 07/16/23 03/21/25 2 Days Ago History
pressure-when she remembers ~11/11/24
albuterol sulfate 90 mcg/actuation 2 puff inhalation R Q4HPRN PRN sob 11/13/24 03/21/25 11/12/24 History
aerosol inhaler
ascorbic acid (vitamin C) 1,000 mg 1,000 mg PO QPM Supplement 11/13/24 03/21/25 11/12/24 History
tablet (Vitamin C)
cyanocobalamin (vitamin B-12) 50 20 mcg PO MOWEFR@2000 Supplement 11/13/24 03/21/25 12/21/24 History
mcg tablet
ensifentrine 3 mg/2.5 mL 2.5 ml inhalation R BID 11/13/24 03/21/25 12/23/24 History
suspension for nebulization Lung/Breathing Issues
(Ohtuvayre)
prednisone 5 mg tablet 5 mg PO BID rheumatoid arthritis 11/13/24 03/21/25 12/23/24 History
Held on 02/21/25.
Instructions: Resume on
03/09/25. Resume on 03/09.
Complete tapering dose of
steroids
rimegepant 75 mg disintegrating 75 mg PO DAILYPRN PRN mirgraines 12/23/24 03/21/25 Unknown History
tablet (Nurtec ODT)
sertraline 25 mg tablet 50 mg PO HS Mental Health/Anxiety 12/23/24 03/21/25 12/22/24 History
B12 Active 20 mg PO DAILY Supplement 02/14/25 03/21/25 Unknown History
iron sucrose 100 mg iron/5 mL 100 mg IV DAILY PRN ferritin level 02/14/25 03/21/25 Unknown History
intravenous solution less than 80
lidocaine 4 % topical patch 1 patch topical 4-8XD Pain 02/14/25 03/21/25 Unknown History
(Blue-Emu Lidocaine Patch)
lidocaine-aloe vera 0.5 % topical 1 applic topical BID PRN pain 02/14/25 03/21/25 Unknown History
gel
minerals 1 tab PO DAILY Supplement 02/14/25 03/21/25 Unknown History
potassium chloride 10 mEq 10 meq PO BID Electrolyte Repletion 02/14/25 03/21/25 Unknown History
tablet,extended release
torsemide 10 mg tablet 10 mg PO BID PRN fluid retention 02/14/25 03/21/25 Unknown History
prednisone 10 mg tablet See Taper PO DAILY #30 tabs 02/21/25 03/21/25 Unknown Rx
diltiazem HCl 30 mg tablet 30 mg PO QID #120 tabs 02/22/25 03/21/25 Unknown Rx
(Cardizem)
Review of Systems
-
History Source: Patient
All other systems: Negative unless noted
Vitals / Labs / Diagnostic Testing
Vital Signs
Temp Pulse Resp BP Pulse Ox
98.0 F 79 18 97/57 96
03/21/25 11:41 03/21/25 11:25 03/21/25 11:25 03/21/25 07:53 03/21/25 11:25
Lab Data
03/21/25 03:09
03/21/25 03:52
Laboratory Results
03/21/25
04:50
pH 7.33 L
pCO2 77 H*
pO2 60 L
HCO3 40.6 H*
O2 Delivery Level 10 l
Microbiology
03/21/25 03:52 Nasal Swab Influenza Types A & B (WARNER) - Final
Negative for Influenza A & B, NAAT
Negative results must be combined with clinical observations
and patient history.
Nucleic Acid Amplification test (NAAT)performed on the
[facility] [facility] platform.
Diagnostic Testing:
Physical Exam
-
HEENT: Normocephalic and Anicteric
Cardiovascular: S1/S2 and Peripheral Edema (negative)
Respiratory: Wheeze (negative), Rhonchi (negative), Accessory Resp Muscle Use (Occasional with activity), Other (Coarse breath sounds heard bilaterally) and Other (Distant breath sounds bilaterally)
GI: Soft, Non Distended, Non Tender and Normal Bowel Sounds
Neurology: Awake, Alert, Oriented and Tremors (negative)
Skin: Warm and Dry
General: Respiratory Distress (negative), Comfortable, Fever (negative) and Chills (negative)
Assessment
-
Assessment: 74-year-old female with a past medical history of severe COPD with chronic hypoxic + hypercapnic respite failure on home O2 + BiPAP who presents with SOB for 3-4 days. Patient's been using her BiPAP at home. She increasingly became
lethargic and was unable to perform therapy as she did previously. When patient arrived here in the ER she was short of breath and hypoxic to 80% on 4 L/min. Blood gas showed acute hypercapnia, and she was started on BiPAP and admitted to the ICU
for closer monitoring with general activities therapist/pulmonary service consulted for additional recommendations.
Conditions present prior to admission:
COPD-severe on chronic O2-followed at [facility]-Dr. Fisher initially and now Dr. Shi at [facility], chronic O2, Brovana, budesonide and Combivent as needed, chronic azithromycin, prednisone
Chronic hypercapnia-ABG 08/2021--48//7 0.43
Migraines.
Chronic lower extremity lymphedema.
Anxiety.
Rheumatoid arthritis.
Anemia.
Hypertension.
Prediabetes.
. Hysterectomy. Right wrist surgery. Left tibial fracture surgery. Dental surgery. Cataract.
Impression:
#Acute on chronic hypercapnic respiratory failure
#Suspected acute COPD exacerbation
#Skin tear involving left upper extremity
#History of A-fib currently in NSR
#Anxiety/depression
#History of iron deficiency requiring iron infusions
Plan:
- Continue BiPAP, and blood gas rechecked later this afternoon -if stable, will remove from BiPAP and use with sleep during the day with naps and at nighttime
- PACKAGE DYE STAND LOADER evaluation once off BiPAP to assess if patient safe for diet
- Continue systemic steroids and wean as tolerated - I will lower her from 40 mg IV q6hr to 40 mg IV q12hr of Solu-Medrol
- Continue aspiration precautions
- Maintain SpO2 88-95%
- I will try to get a download of her last 30 days from her BiPAP machine to assess what her usage was and her amount of mask leaking
- The patient/daughter is concerned that the mask is leaking at home and this could be contributing to her acute hypercapnia; I advised her to bring the mask in from home so that we can evaluate it and possibly tried on while patient is
hospitalized here in see if we can identify any issues prior to discharge to help prevent a bounce back to the hospital
- Maintain MAP>65
- Replete electrolytes with K>4, Mg>2
- Maintain euglycemia with goal BG 140-180
- Trend H/H and transfuse if needed to keep Hb>7g/dL; keep plt>20k, unless there is concern for bleeding then keep plt>50k
- prn nebulized bronchodilators - not currently bronchospastic
- Incentive spirometer encouraged 10x per hour for at least 4 hrs a day
- DVT ppx
Will continue to trend blood gas and if remains stable by this evening then will downgrade to IMU. Once downgraded, pulmonary service will continue to follow along.
(Patient was seen and evaluated on 03/21/2025) total time spent today was 81 minutes for this encounter. Time includes reviewing laboratory test/imaging results, reviewing pertinent medical records, obtaining and reviewing medical history,
performing an appropriate exam, ordering medications, tests and procedures. Time also includes documentation of this encounter, coordinating patient care and communicating with other healthcare professionals. Total time does not include separately
billed tests performed on this date of service.
[2025-03-21 12:21] LABS: B.E. 12.2 mmol/L; O2 Saturation % 97.1 % (94-98); PCO2 70 mmHg (32-35); PO2 73 mmHg (83-108)
[2025-03-21 12:25] LABS: HCO3 40.5 mmol/L (21-28)
--- NOTE | 2025-03-21 13:21 | PTCARENOTE ---
abg results seen by pulm. bipap removed oral care done.
--- NOTE | 2025-03-21 14:46 | PTOTSP ---
Speech Therapy Evaluation:
Pt with chronic risk factors of dysphagia including hx of severe COPD with chronic respiratory failure, acutely compounded by COPD exacerbation. At bedside, oropharyngeal swallow appeared WFL. No overt s/sx of aspiration, however risk increased
given tenuous respiratory status and concern for breathing/swallow coordination. Pt without dysphagia hx and CXR without pneumonia.
Recommend:
1. Regular solids and thin liquids
2. Meds as tolerated
3. Strict aspiration precautions
4. Rest breaks during meals if feeling SOB
5. ELEVATOR ATTENDANT to follow to monitor tolerance of diet, likely brief
--- NOTE | 2025-03-21 15:08 | CM ---
Initial assessment completed with daughter and confirmation of information from previous admission. Patient lives with her in a 2nd floor apartment in an elevator building with no steps to enter. 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
and ambulation/mobility. She has an O2 concentrator with continuous O2 @ 4L, large tank, portable concentrator, RW, W/CH, Bipap, rollator and transport chair with brakes. Current HH services with [facility] for RN, PT/OT services. [employer] provides Bipap
and [employer] provides O2. Does not have HC-POA. No VA benefits. No psychiatric hospitalizations. PCP is Dr. Odalis Maldonado. Pharmacy is [email or web address] in [place]. Discharge POC: Resume [facility] RN, PT/OT services. Referral placed.
--- NOTE | 2025-03-21 15:18 | PTCARENOTE ---
right arm iv infiltrate with ivf. iv removed.
--- NOTE | 2025-03-21 15:45 | WOUNDNOTE ---
MAIKOL RN note: Patient admitted with acute COPD.
See H&P for complete history.
PMH: Past Medical History: Reports Other (COPD-severe on chronic O2. Migraines. Chronic lower extremity lymphedema. Anxiety. Osteoporosis. Rheumatoid arthritis. Anemia. Hypertension. Prediabetes. . Hysterectomy. Right wrist
surgery. Left tibial fracture surgery. Dental surgery. Cataract.) smoker.
Past Surgical History: Reports Other
Wound Location and type/assessment: Patient known to service, last seen 02/22/25. Now admitted with: healing L lower arm skin tear, pink base and hypergranulated tissue. L upper arm skin tear has healed. Patient turned with assist of nurse Jesus,
sacrum with small stage 2 PI, pink base, periwound blanchable red. Heels intact foams in use.
Appetite: Poor, dietary following.
Pressure redistribution devices in place: On air mattress, pillow under calves. Air cushion when sitting.
Plan: Local wound care applied with assist of nurse. Will confirm orders with hospitalist and updated nurse.
Updated care plan and will follow as needed.
Note to case management of equipment requested for discharge: VN
Recommend follow up at wound care center upon discharge.
[2025-03-21 17:02] LABS: Venous Blood Gas B.E. 11.3 mmol/L (-4 to +4); Venous Blood Gas O2 Sat % 99.9 %
[2025-03-21] MEDS: LOVENOX 30 MG SC (17:35)
[2025-03-21] MEDS: VIBRAMYCIN 100 MG PO (22:50)
[2025-03-21] MEDS: ZOLOFT 25 MG PO (22:51)
[2025-03-21] MEDS: VALTREX 500 MG PO (22:52)
[2025-03-22] VITALS (28 sets, daily range): BP systolic 89–134; BP diastolic 56–77; PULSE 2–108; O2SAT 96; BMI 17.4
--- NOTE | 2025-03-22 02:12 | PTCARENOTE ---
[facility] Assessment and vital sign trends documented in flowsheets. Patient on and off Bipap for increased WOB and hypoxia, patient desats with slight position changes. Lungs diminished. SR on monitor when at rest,
tachy into the 130s with exertion. Daughter present at bedside, plan of care discussed. Care ongoing.
[2025-03-22 06:13] LABS: B.E. 13.3 mmol/L; O2 Saturation % 99.1 % (94-98); PCO2 62 mmHg (32-35); PO2 107 mmHg (83-108)
[2025-03-22 06:16] LABS: HCO3 40.2 mmol/L (21-28); Hematocrit 36.1 % (37.0-47.0); Hemoglobin 11.0 g/dL (12.0-16.0); Mean Corp Hgb Conc. 30.5 g/dL (33.0-37.0); Mean Corpuscular Volume 94.0 fL (81.0-99.0); Nucleated Red Blood Cells % 0 %; O2 Therapy 4L/min; Platelet Count 280 10^3/uL (130-400); Red Cell Dist. Width 17.3 % (11.5-14.5)
[2025-03-22 06:47] LABS: Blood Urea Nitrogen 27 mg/dl (7-17); Calcium 9.5 mg/dl (8.4-10.2); Chloride 101 mmol/L (98-107); Estimated Creatinine Clearance 53 ml/min; Glucose 193 mg/dl (70-99); Iron 36 ug/dl (37-170); Magnesium 2.2 mg/dl (1.6-2.3); Potassium 4.9 mmol/L (3.5-5.1); Sodium 140 mmol/L (135-145); eGFR > 60.00
[2025-03-22 06:56] LABS: Total Iron Binding Capacity 293 ug/dl (265-497)
[2025-03-22 07:22] LABS: Ferritin 95.8 ng/ml (11.1-264.0)
[2025-03-22] MEDS: PULMICORT 0.5 MG INH ×2 (07:29→19:13)
[2025-03-22] MEDS: DUONEB 3 ML INH ×4 (07:29→19:13)
[2025-03-22 08:10] LABS: Carbon Dioxide 36 mmol/L (22-30)
--- NOTE | 2025-03-22 08:17 | W.PN.HOSP.TC ---
Today's Communication/Plan
-
Continue with steroid taper per pulmonary
Continue with doxycycline for 5 days
Transferred to telemetry if okay from pulmonary standpoint
Assessment / Plan
Assessment / Plan
IMPRESSION:
74-year-old with advanced COPD, 4 L oxygen dependence, BiPAP dependence, on chronic steroids as well as chronic azithromycin, a 51 less than 22%, proximal atrial fibrillation, hypertension, anxiety, recent admission for hypercarbic and hypoxic
respiratory failure presenting to the emergency department with worsening shortness of breath over the last 4 days and found to be in hypercarbic and hypoxic respiratory failure. Patient and family reports compliance with medication regimen as well
as the BiPAP and oxygen. No clear evidence of acute infection. There is no cough no fevers no chills no known sick contacts. COVID test is negative. WBC is 9.7 the rest of the labs are unremarkable. Chest x-ray is similar to prior consistent
with severe emphysematous lung disease without any acute infiltrates pulmonary edema or pleural effusions or pneumothorax. Work of breathing was initially slightly improved on BiPAP. She has acute on chronic respiratory acidosis with a pH of
7.24/94 on venous blood gas
PLAN:
COPD exacerbation with acute on chronic hypoxemic hypercarbic respiratory failure
- Improved clinical status. Normalized pH. Improved pCO2. Mentating well.
-Continue BiPAP during sleep and during the naps.
-IV steroids are not mean. Appreciate pulmonary input.
- Continue with 5 days of doxycycline.
-Continue bronchodilators therapies including long-acting beta agonist and inhaled corticosteroids
� Continue DuoNeb
� Continue tiotropium
� Continue oral theophylline.
� Pulmonary following.
Paroxysmal atrial fibrillation -currently sinus tachycardia
-continue diltiazem
� Patient not requiring anticoagulation at this time
Anxiety/depression-patient apparently on sertraline 50 mg not 25 mg at home.
Left arm previous skin tear and chronic wound-continue with the wound care
History of iron deficiency anemia-hemoglobin 11.0 today. Ferritin normal. No indication for IV iron transfusion. Follow with the PCP.
Transfer out of ICU to telemetry
PT OT eval
Discussed with PILOT BOAT OPERATOR
Discussed with daughter at bedside
DVT prophylaxis�Lovenox subcu
CODE STATUS�DNR
Anticipated Discharge: 24 - 48 hours
Subjective/Interval History
-
Date of Service: March 22, 2025
Patient is better. She is more alert and awake. Oriented. Denies shortness of breath or chest pain. No overnight events.
Was able to wear the mask all night last night.
No nausea vomiting
Objective Data
-
Labs:
Laboratory Results
03/22/25 03/22/25
06:00 06:01
WBC 9.1
Hgb 11.0 L
Hct 36.1 L
Plt Count 280
HCO3 40.2 H*
Sodium 140
Potassium 4.9
Chloride 101
Carbon Dioxide 36 H
BUN 27 H
Creatinine 0.5 L
Glucose 193 H
Calcium 9.5
Vital Signs:
Vital Signs
Temp Pulse Resp BP Pulse Ox
98.2 F 98 16 99/57 96
03/22/25 07:08 03/22/25 07:35 03/22/25 07:35 03/22/25 04:00 03/22/25 07:35
I&O
03/21/25 03/22/25 03/23/25
06:59 06:59 06:59
Intake Total 820 / 820
Output Total 450 / 450
Balance 370 / 370
Physical Exam
-
General: Comfortable
Respiratory: Clear to Auscultation and Non Labored Respirations; Negative Wheezes or Accessory Resp Muscle Use
Cardiac: Regular Rhythm, S1/S2 and Tachycardic
GI: Soft, Nontender, Nondistended and Normal Bowel Sounds
Neuro: AO x 3
Psych: Calm
Data Reviewed
-
Labs: Labs Reviewed by me
--- NOTE | 2025-03-22 08:30 | PTCARENOTE ---
Assumed care of pt at 714 following shift report. Unable to verify any VS prior to 714. Pt asleep on Bipap at ordered settings at time assumed care. Pox 98%. Arousable to name. Pt denies any c/o pain. Physical assessment completed as documented.
Call colon w/in pt reach and safe environment maintained. Pt's daughter attentive at bedside.
--- NOTE | 2025-03-22 08:51 | VNURNOTE ---
Chart reviewed. Patient is current with [facility]. Will continue to follow hospital course and DC plans.
[2025-03-22] MEDS: VIBRAMYCIN 100 MG PO ×2 (08:59→21:14)
[2025-03-22] MEDS: CARDIZEM 30 MG PO ×3 (09:00→21:16)
[2025-03-22] MEDS: SOLU-MEDROL PF 40 MG IV ×2 (09:00→21:13)
--- NOTE | 2025-03-22 09:58 | W.PN.INTV ---
Today's Communication / Plan
Recommendations
Continue BiPAP with sleep during the day (naps) and at night
I will work on getting a 30-day compliance summary (DME: [facility])
Trend pH and pCO2 with serial blood gas
Continue supplemental oxygen, titrating to keep SpO2 between 88+5%
Continue Solu-Medrol with slow taper (see assessment/plan for detailed prednisone taper scheduling), and believe that she will benefit from a higher chronic dose at 10 mg BID (from 5mg BID)
If she does not feel improved with the higher chronic prednisone dose, then would recommend going back down to her 5 mg BID to allow her to be on the lowest effective dose
I will give her 20 mg IV Lasix now given that her CXR showed small amount of costo-phrenic angle blunting
Continue nebulizer therapy with DuoNebs and budesonide
Zithromycin can be resumed after course of doxycycline has been completed
Continue Ohtuvayre upon discharge
Incentive spirometry encouraged as tolerated
Anxiolytics
Start a low-dose morphine to be used for air hunger to hopefully improve quality of life; she should be seen by palliative care as an outpatient especially if she will continue to be on morphine chronically
Patient has a office appointment with us on this 03/24/2025, with Dr. Betancourt. Strongly recommend the patient attend this visit however if she is unable to make it given her significant SOB/TRUONG, then she has another appointment after that
on 04/10/[address] Guevara
Unfortunately she is too short of breath to attend pulmonary rehab - this would be an ongoing discussion in the office
Not sure if biologic therapy can be entertained for her COPD (although no clear history of eosinophilia hence not sure how much of the benefit she will get from Nucala versus Dupixent)
Given that her blood gas has remained stable over the last 4 blood draws and she is on minimal oxygen, patient is stable for downgrade out of IMU to telemetry. Pulmonary service will continue to follow along.
Assessment
-
Assessment: 74-year-old female with a past medical history of severe COPD with chronic hypoxic + hypercapnic respite failure on home O2 + BiPAP who presents with SOB for 3-4 days. Patient's been using her BiPAP at home. She increasingly became
lethargic and was unable to perform therapy as she did previously. When patient arrived here in the ER she was short of breath and hypoxic to 80% on 4 L/min. Blood gas showed acute hypercapnia, and she was started on BiPAP and admitted to the ICU
for closer monitoring with ap processor/pulmonary service consulted for additional recommendations.
Conditions present prior to admission:
COPD-severe on chronic O2-followed at [place]-Dr. Fisher initially and now Dr. Shi at [place], chronic O2, Brovana, budesonide and Combivent as needed, chronic azithromycin, prednisone
Chronic hypercapnia-ABG 08/2021--48/59/7 0.43
Migraines.
Chronic lower extremity lymphedema.
Anxiety.
Rheumatoid arthritis.
Anemia.
Hypertension.
Prediabetes.
. Hysterectomy. Right wrist surgery. Left tibial fracture surgery. Dental surgery. Cataract.
Impression:
#Acute on chronic hypercapnic respiratory failure
#Suspected acute COPD exacerbation
#Skin tear involving left upper extremity
#History of A-fib currently in NSR
#Anxiety/depression
#History of iron deficiency requiring iron infusions
Plan:
- Continue BiPAP with sleep and during the day during naps
- I will see if our respiratory therapy team can give the patient one of our mask upon discharge as she seems to like the full facemask that we use here in the hospital; unfortunately, I am not sure if the mass that we have here in the hospital is
compatible with her machine at home
- Of note, she uses a noninvasive ventilator at home; DME is [employer]
- Serial blood gases shows stable chronic hypercapnia which is compensated
- Continue systemic steroids and wean as tolerated -currently on Solu-Medrol 40 mg IV q12hr - -> she says that she does feel better when she is on steroids although it does not a marked improvement. Considering that she has any improvement at all,
she will require a long steroid taper, beginning at 40 mg p.o. daily and reducing by 10 mg every fifth day until down to 20 mg at which point we can start 10 mg BID that she should continue with while at home. When she arrived here to the hospital,
she was on 5 mg BID
-Continue with DuoNebs QID and budesonide BID with prn DuoNebs; she is on azithromycin TIW at home that we can resume after her current course of Doxy has been completed; she also is on Ohtuvayre at home that she should continue
- I will order low dose morphine to be used as needed for air hunger/tachypnea, as this may help improve her quality of life. I believe that she would benefit from low-dose of morphine at home
- Maintain SpO2 88-95%
- The patient's daughter will let me know the NIV serial number and I will try to get a 30-day compliance summary report to assess what her usage was and amount of mask leaking. Ultimately, she may need to call her [employer] company, [employer], to get her
a mask that fits well.
- I will give her a dose of IV Lasix 20 mg today; she is prescribed torsemide however only takes it as needed. Her last CXR showed some mild blunting of the close phrenic angles hence I am concerned that she could be developing volume overload. I
will check proBNP level tomorrow with repeat CXR
- SOLAR ELECTRIC/PHOTOVOLTAIC INSTALLER evaluated the patient and have cleared her for regular solids and thin liquids with no overt signs or symptoms of aspiration
- Continue aspiration precautions
- Maintain MAP>65
- Replete electrolytes with K>4, Mg>2
- Maintain euglycemia with goal BG 140-180
- Trend H/H and transfuse if needed to keep Hb>7g/dL; keep plt>20k, unless there is concern for bleeding then keep plt>50k
- prn nebulized bronchodilators - not currently bronchospastic
- Incentive spirometer encouraged 10x per hour for at least 4 hrs a day
- DVT ppx
Given that her blood gas has remained stable over the last 4 blood draws and she is on minimal oxygen, patient is stable for downgrade out of IMU to telemetry. Pulmonary service will continue to follow along.
Total time spent today was 39 minutes for this encounter. Time includes reviewing laboratory test/imaging results, reviewing pertinent medical records, obtaining and reviewing medical history, performing an appropriate exam, ordering medications,
tests and procedures. Time also includes documentation of this encounter, coordinating patient care and communicating with other healthcare professionals. Total time does not include separately billed tests performed on this date of service.
Subjective Dataa
Subjective Data
Date of Service:
Date of Service: March 22, 2025
Chief Complaint: Pulmonary Follow Up
Subjective:
Patient was seen and evaluated this morning. She wore her BiPAP overnight on 26/12 bled with 6 L/min. She did have periods where there was mask leaking, which seems to be the main issue while patient is home. This morning, blood gas looks stable
with pH 7.42 and pCO2 62. Iron studies obtained today showing low iron saturation level. She continues to feel extreme shortness of breath with exertion, even after walking several steps. I discussed the case with the patient's and
daughter and all questions were answered.
Review of Systems
General: Other (Negative unless mentioned above)
Objective Data
Data Reviewed
Vital Signs / I&O / Oxygen:
Vital Signs
Temp Pulse Resp BP Pulse Ox
98.2 F 82 16 104/67 95
03/22/25 07:08 03/22/25 09:00 03/22/25 07:35 03/22/25 09:00 03/22/25 09:09
Intake and Output
03/21/25 03/22/25 03/23/25
06:59 06:59 06:59
Intake Total 820 / 820
Output Total 450 / 450
Balance 370 / 370
SaO2 95
Nasal Cannula flow liters per 4
minute
Physical Exam
General: Respiratory Distress (negative) and Comfortable
HEENT: Normocephalic and Anicteric
Cardiovascular: S1-S2 and Peripheral Edema (negative)
Respiratory: Wheeze (negative), Crackles (negative), Rhonchi (negative), Non-Labored Respirations and Stridor (negative)
GI: Soft, Non Distended, Non Tender and Normal Bowel Sounds
Neurology: Awake, Alert, Oriented and Tremors (negative)
Skin: Warm, Dry, Cyanosis (negative) and Jaundice (negative)
Labs/Micro/Reports
Lab Data
03/22/25 06:00
03/22/25 06:01
Laboratory Results
03/21/25 03/22/25
11:59 06:00
pH 7.37 7.42
pCO2 70 H 62 H
pO2 73 L 107
HCO3 40.5 H* 40.2 H*
O2 Delivery Level 4l/min
Microbiology
03/21/25 03:52 Nasal Swab Influenza Types A & B (WARNER) - Final
Negative for Influenza A & B, NAAT
Negative results must be combined with clinical observations
and patient history.
Nucleic Acid Amplification test (NAAT)performed on the
[employer] platform.
[2025-03-22 12:49] LABS: B.E. 11.4 mmol/L; HCO3 39.9 mmol/L (21-28); O2 Saturation % 99.5 % (94-98); PO2 110 mmHg (83-108)
[2025-03-22 12:53] LABS: PCO2 74 mmHg (32-35)
--- NOTE | 2025-03-22 13:20 | SUR.PHASEI ---
Pt sitting OOB in chair since visit from PT/OT. No complaints from pt other than TRUONG that improves w/ rest. POx remains mid to high 90's on O2 @ 4l/min. Dr Clemons notified of 1239 ABG results- talking w/ daughter.
--- NOTE | 2025-03-22 13:32 | PN.CDI ---
CDI
- -
CDI:
Physician Documentation Request
Admit Date: 03/21/25 04:57
Dear Doctor Randall,
Patient admitted with COPD exacerbation.
03/21 Nursing skin assessment by NICHELLE, 'Stage 2 sacral pressure injury, POA.'
Physician documentation of the type and location of wounds is required for compliant documentation. Based on the above clinical findings and your assessment, please provide the following in your progress note:
Type (etiology) of ulcer/wound:
- Pressure (decubitus) ulcer
- Other
- Unable to determine
For a pressure ulcer, please also include the stage* of the ulcer:
- Stage 1 - Skin intact, non-blanchable redness
- Stage 2 - Partial thickness loss of dermis, includes intact or open blister
- Stage 3 - Full thickness tissue not including bone, tendon or muscle
- Stage 4 - Full thickness tissue loss, including exposed bone, tendon or muscle
- Unstageable - Full thickness loss in which the base of the ulcer is covered by slough (yellow, dorman, edouard, green or brown) and/or eschar (dorman, brown or black) in the wound bed.
- Unable to determine
Use of terms such as suspected, likely, concern for, or probable (associated with a specific diagnosis that is being evaluated, monitored, or treated as if it exists) are acceptable and can be coded in the inpatient setting, when documented at the
time of discharge.
Thank you,
Dahlia PRAJAPATI, RN,CCDS
CDI Specialist
Available via tiger text
Please use your independent medical judgment in providing your response.
*Source: National Pressure Ulcer Advisory Panel (NPUAP)
--- NOTE | 2025-03-22 13:59 | PN.CDI ---
CDI
- -
CDI:
Physician Documentation Request
Admit Date: 03/21/25 04:57
Dear Doctor Randall,
Patient admitted with COPD exacerbation.
03/21 Nutrition note, ' 87 lbs 4.849 oz BMI 17.1 underweight range (03/21). Pt's weight per previous hospital visit listed as 96 lbs (12/23) reflective of a 9% weight loss in 3 months, significant.
During visit was able to visualize temporal wasting, protrusion of clavicle and apparent ribs.
With observed muscle and fat wasting as well as > 7.5% weight loss in 3 months pt meets AND/ASPEN criteria for moderate protein calorie malnutrition of chronic illness.
Please provide in your note the diagnosis associated with the above nutritional findings and your assessment:
Moderate protein calorie malnutrition of chronic illness
Mild protein calorie malnutrition
Other (please specify)
[place] Criteria (ACP Hospitalist 2017)
2 or more criteria must be present for either
non severe or severe malnutrition
Note that the criteria differs related to the
presence of an acute or chronic illness
Chronic Illness
Energy Intake Non Severe: <75% for >1 month
Severe: <75% for >1 month
Weight Loss Non Severe: 5% over 1 month
7.5% over 3 months
10% over 6 months
20% over 1 year
Severe: >5% over 1 month
>7.5% over 3 months
>10% over 6 months
>20% over 1 year
Body Fat Non Severe: Mild Loss
Severe: Severe Loss
Muscle Mass Non Severe: Mild Loss
Severe: Severe Loss
Fluid Accumulation Non Severe: Mild Accumulation
Severe: Moderate to severe
accumulation
Reduced Financial Aid Counselor Strength Non Severe: N/A
Severe: Measurably reduced
Use of terms such as suspected, likely, concern for, or probable (associated with a specific diagnosis that is being evaluated, monitored, or treated as if it exists) are acceptable and can be coded in the inpatient setting, when documented at the
time of discharge.
Thank you,
Dahlia PRAJAPATI,RN,CCDS
CDI Specialist
Available via tiger text
Please use your independent medical judgment in providing your response.
[2025-03-22] MEDS: NON-FORMULARY ITEM 200 MG PO (14:12)
--- NOTE | 2025-03-22 14:31 | CM ---
IV/Solu-Medrol taper. Discharge POC: Home with resumption of [facility] RN, PT/OT services.
[2025-03-22] MEDS: FERRLECIT 110 MG IV (16:30)
--- NOTE | 2025-03-22 16:57 | PTCARENOTE ---
Report called to 'Josefa [facility]'. Pt to transfer to Rm 2122. Resp Therapy in room to remove BiPap and place pt back onto O2 @ 4l/min w/ Pox 100%. present in room at time of transfer. All questions answered. Pt's personal belongings and meds
sent w/ pt at time of transfer.
[2025-03-22] MEDS: LASIX 20 MG IV (17:01)
[2025-03-22 17:28] LABS: Glucose - Point of Care 210 mg/dl (70-99)
[2025-03-22] MEDS: LOVENOX 30 MG SC (17:47)
--- NOTE | 2025-03-22 18:06 | W.PN.UPDATE ---
Update Note
Progress Note Update
Patient and I spoke over the phone, and she looked at her NIV Daphne machine and the serial number is: [id number]. My service either through myself or Dr. Mtz will call my office and try to obtain a 30-day compliance summary report. DME: [facility]
--- NOTE | 2025-03-22 18:20 | PTCARENOTE ---
Received from ICU into room 2121. AOx3. VSS. Updated on plan and oriented to room.
[2025-03-22] MEDS: NOVOLOG FLEXPEN-LOW RESISTANCE 2 UNITS SC (18:25)
[2025-03-22] MEDS: RESTASIS 0.05% OPHTHALMIC EMULSION 1 DROPS BOTH EYES (21:10)
[2025-03-22] MEDS: VALTREX 500 MG PO (21:14)
[2025-03-22] MEDS: ZOLOFT 50 MG PO (21:15)
[2025-03-22 21:16] LABS: Glucose - Point of Care 411 mg/dl (70-99)
[2025-03-22 22:02] LABS: Glucose 391 mg/dl (70-99)
[2025-03-22] MEDS: NOVOLOG FLEXPEN 4 UNITS SC (22:54)
[2025-03-23] VITALS (8 sets, daily range): BP systolic 113–121; BP diastolic 54–68; PULSE 2–97; O2SAT 98
[2025-03-23 00:49] LABS: Glucose - Point of Care 144 mg/dl (70-99)
[2025-03-23 07:03] LABS: Blood Urea Nitrogen 33 mg/dl (7-17); Calcium 9.7 mg/dl (8.4-10.2); Chloride 97 mmol/L (98-107); Estimated Creatinine Clearance 53 ml/min; Glucose 176 mg/dl (70-99); Magnesium 2.3 mg/dl (1.6-2.3); Potassium 5.1 mmol/L (3.5-5.1); Sodium 142 mmol/L (135-145); eGFR > 60.00
[2025-03-23] MEDS: DUONEB 3 ML INH ×4 (07:26→20:41)
[2025-03-23] MEDS: PULMICORT 0.5 MG INH ×2 (07:26→20:41)
[2025-03-23 07:57] LABS: Glucose - Point of Care 147 mg/dl (70-99)
[2025-03-23 08:23] LABS: Hematocrit 41.3 % (37.0-47.0); Hemoglobin 12.2 g/dL (12.0-16.0); Mean Corp Hgb Conc. 29.5 g/dL (33.0-37.0); Mean Corpuscular Volume 97.2 fL (81.0-99.0); Nucleated Red Blood Cells % 0 %; Red Cell Dist. Width 17.1 % (11.5-14.5)
[2025-03-23 08:29] LABS: Carbon Dioxide 40 mmol/L (22-30)
[2025-03-23] MEDS: CARDIZEM 30 MG PO ×3 (08:50→21:25)
[2025-03-23] MEDS: NOVOLOG FLEXPEN-LOW RESISTANCE SC ×2 (08:50→17:42)
[2025-03-23] MEDS: VIBRAMYCIN 100 MG PO (08:50)
[2025-03-23] MEDS: RESTASIS 0.05% OPHTHALMIC EMULSION 1 DROPS BOTH EYES ×2 (08:51→19:40)
[2025-03-23] MEDS: SOLU-MEDROL PF 40 MG IV (08:51)
[2025-03-23] MEDS: VITAMIN D3 (cholecalciferol) 25 MCG PO (08:53)
--- NOTE | 2025-03-23 09:30 | W.PN.HOSP.TC ---
Addendum entered and electronically signed by Vinny Pereira MD 03/26/25 13:33:
During visit was able to visualize temporal wasting, protrusion of clavicle and apparent ribs.
With observed muscle and fat wasting as well as > 7.5% weight loss in 3 months pt meets AND/ASPEN criteria for moderate protein calorie malnutrition of chronic illness.
Stage 2 sacral pressure injury, POA.
Original Note:
Today's Communication/Plan
-
Wean steroids per pulmonary
DC planning
Assessment / Plan
Assessment / Plan
IMPRESSION:
74-year-old with advanced COPD, 4 L oxygen dependence, BiPAP dependence, on chronic steroids as well as chronic azithromycin, a 51 less than 22%, proximal atrial fibrillation, hypertension, anxiety, recent admission for hypercarbic and hypoxic
respiratory failure presenting to the emergency department with worsening shortness of breath over the last 4 days and found to be in hypercarbic and hypoxic respiratory failure. Patient and family reports compliance with medication regimen as well
as the BiPAP and oxygen. No clear evidence of acute infection. There is no cough no fevers no chills no known sick contacts. COVID test is negative. WBC is 9.7 the rest of the labs are unremarkable. Chest x-ray is similar to prior consistent
with severe emphysematous lung disease without any acute infiltrates pulmonary edema or pleural effusions or pneumothorax. Work of breathing was initially slightly improved on BiPAP. She has acute on chronic respiratory acidosis with a pH of
7.24/94 on venous blood gas
PLAN:
Acute COPD exacerbation with acute on chronic hypoxemic hypercarbic respiratory failure
- Improved clinical status. Normalized pH. Improved pCO2. Mentating well.
- Continue BiPAP during sleep and during the naps.
- IV steroids-wean per pulmonary. Appreciate pulmonary input.
- Continue with 5 days of doxycycline.
- Continue bronchodilators therapies including long-acting beta agonist and inhaled corticosteroids
� Continue DuoNeb
� Continue tiotropium
� Continue oral theophylline.
� Pulmonary following.
Paroxysmal atrial fibrillation -currently sinus rhythm
-continue diltiazem
� Patient not on outpatient anticoagulation at this time
Anxiety/depression-patient apparently on sertraline 50 mg not 25 mg at home.
Left arm previous skin tear and chronic wound-continue with the wound care
History of iron deficiency anemia-hemoglobin 12.2 . Ferritin 95.8. No indication for IV iron transfusion. Follow with the PCP.
cw telemetry
cw PT OT eval
Discussed with daughter on phone
DVT prophylaxis�Lovenox subcu
CODE STATUS�DNR
Anticipated Discharge: 24 - 48 hours
Subjective/Interval History
-
Date of Service: March 23, 2025
Feeling improved compared to admission. Still feels winded with conversation.
No chest pain.
No nausea vomiting.
No fever or chills.
Objective Data
-
Labs:
Laboratory Results
03/22/25 03/23/25
21:35 05:53
WBC 11.6 H
Hgb 12.2
Hct 41.3
Plt Count Pending
Sodium 142
Potassium 5.1
Chloride 97 L
Carbon Dioxide 40 H
BUN 33 H
Creatinine 0.5 L
Glucose 391 H 176 H
Calcium 9.7
Vital Signs:
Vital Signs
Temp Pulse Resp BP Pulse Ox
97 F 85 18 117/66 95
03/23/25 07:00 03/23/25 08:50 03/23/25 07:31 03/23/25 08:50 03/23/25 07:31
I&O
03/22/25 03/23/25 03/24/25
06:59 06:59 06:59
Intake Total 820 / 820 600 / 600
Output Total 450 / 450 900 / 900
Balance 370 / 370 -300 / -300
Physical Exam
-
General: No Apparent Distress
HEENT: Moist Mucous Membranes
Respiratory: Wheezes (Bilateral expiratory) and Non Labored Respirations; Negative Accessory Resp Muscle Use
Cardiac: Regular Rhythm and S1/S2; Negative Tachycardic
GI: Soft and Nontender
Neuro: AO x 3
Psych: Calm; Negative Confused
Data Reviewed
-
Labs: Labs Reviewed by me
[2025-03-23 10:38] LABS: Platelet Count 316 10^3/uL (130-400)
[2025-03-23 11:44] LABS: Glucose - Point of Care 289 mg/dl (70-99)
[2025-03-23] MEDS: NOVOLOG FLEXPEN-LOW RESISTANCE 3 UNITS SC (13:20)
--- NOTE | 2025-03-23 15:41 | W.PN.PUL3 ---
Today's Communication / Plan
-
- Transition to PO Prednisone, 30 mg daily
- D/c Doxycycline, resume Azithromycin 250 mg
- Discharge planning
Assessment
-
74-year-old female with a past medical history of severe COPD with chronic hypoxic + hypercapnic respite failure on home O2 + BiPAP who presents with SOB for 3-4 days. Patient's been using her BiPAP at home. She increasingly became lethargic and
was unable to perform therapy as she did previously. When patient arrived here in the ER she was short of breath and hypoxic to 80% on 4 L/min. Blood gas showed acute hypercapnia, and she was started on BiPAP and admitted to the ICU for closer
monitoring with wound care physician/pulmonary service consulted for additional recommendations.
#1. Acute on chronic hypoxic & hypercapnic respiratory failure due to acute exacerbation of advanced COPD
#2. Baseline severe COPD (FEV1 22%), chronically O2, home BIPAP and Prednisone dependent, end stage
#3. H/o Hypercapnic encephalopathy
#4. Suspect developing Cor pulmonale
#5. Pulmonary Cachexia
Patient has baseline severe COPD, end stage, on Maximal medical therapy as out patient
Outpatient COPD regimen includes: Low-dose theophylline, Azithromycin for anti-inflammatory properties, Brovana/budesonide nebulizers, Ipratropium/albuterol nebulizers as needed, Ohtuvayre and Spiriva. Also been on chronic low-dose prednisone
therapy and was started on noninvasive mechanical ventilation 12/2024
No pneumonia noted on imaging this admission. Discontinue doxycycline, resume p.o. azithromycin starting 03/24.
Continue Duoneb scheduled along with Budesonide. Switched IV steroids to Prednisone 30 mg daily starting tonight
Nightly BIPAP and additional usage as needed during day time . Cotninue 26/12 with back up rate of 12.
Patient has end stage COPD with CO2 retention.
Briefly discussed regarding more palliative approach versus hospice evaluation. Patient and want to hold that off for now.
Patient enrolled with palliative care as outpatient.
Chest x-ray 03/23 unremarkable. Minimally elevated BNP and patient develops intermittently pedal edema for which she uses torsemide on an as-needed basis. Suspect she is developing cor pulmonale.
Conditions present prior admission:
Advanced COPD: 4 L nasal cannula, noninvasive mechanical ventilation-chronic hypoxemic and hypercapnic respiratory failure
Up until recently followed at [facility]- Dr. Shi, scheduled f/u with [facility] for 04/2025.
Rheumatoid arthritis
Chronic anemia
Hypertension
Anxiety
Osteoporosis
Atrial Fibrillation
Total time spent on this consultation/encounter __46__ minutes which includes review of history, physical exam, medications, laboratory data, personal review of imaging, extensive review of outpatient records, discussion with care team and
respiratory therapy.
Subjective Data
-
Date of Service:
Date of Service: March 23, 2025
Subjective:
Comfortably sitting in chair in no acute distress.
Review of Systems
Genitourinary: Other (No new symptoms reported)
Objective Data
Data Reviewed
Vital Signs / I&O / Oxygen:
Vital Signs
Temp Pulse Resp BP Pulse Ox
98.3 F 89 16 113/54 96
03/23/25 11:00 03/23/25 11:03 03/23/25 11:03 03/23/25 11:00 03/23/25 13:33
Intake and Output
03/22/25 03/23/25 03/24/25
06:59 06:59 06:59
Intake Total 820 / 820 600 / 600
Output Total 450 / 450 900 / 900
Balance 370 / 370 -300 / -300
SaO2 96
Nasal Cannula flow liters per 4
minute
Physical Exam
General: Comfortable
HEENT: Normocephalic
Cardiovascular: S1-S2
Respiratory: Wheeze (Faint end expiratory wheezing bilaterally.)
GI: Soft and Non Distended
Neurology: Awake and Alert
Skin: Warm
Labs/Micro/Reports
Lab Data
03/23/25 05:53
03/23/25 05:53
Microbiology
03/21/25 03:52 Nasal Swab Influenza Types A & B (WARNER) - Final
Negative for Influenza A & B, NAAT
Negative results must be combined with clinical observations
and patient history.
Nucleic Acid Amplification test (NAAT)performed on the
[employer] platform.
[2025-03-23 17:13] LABS: Glucose - Point of Care 135 mg/dl (70-99)
[2025-03-23] MEDS: LOVENOX 30 MG SC (18:12)
[2025-03-23] MEDS: DELTASONE 30 MG PO (18:12)
[2025-03-23] MEDS: VALTREX 500 MG PO (21:24)
[2025-03-23] MEDS: ZOLOFT 50 MG PO (21:24)
[2025-03-23] MEDS: NON-FORMULARY ITEM 200 MG PO (21:24)
[2025-03-23 22:00] LABS: Glucose - Point of Care 247 mg/dl (70-99)
[2025-03-24 00:32] VITALS: PULSE 2
[2025-03-24 02:59] VITALS: BP 117/56
[2025-03-24 07:17] VITALS: BP 124/78
[2025-03-24] MEDS: PULMICORT 0.5 MG INH (07:43)
[2025-03-24] MEDS: DUONEB 3 ML INH ×2 (07:43→11:09)
[2025-03-24] MEDS: RESTASIS 0.05% OPHTHALMIC EMULSION 1 DROPS BOTH EYES (08:12)
[2025-03-24] MEDS: CARDIZEM 30 MG PO ×2 (08:13→15:48)
[2025-03-24] MEDS: DELTASONE 30 MG PO (08:13)
[2025-03-24] MEDS: VITAMIN D3 (cholecalciferol) 25 MCG PO (08:14)
[2025-03-24] MEDS: ZITHROMAX 250 MG PO (08:14)
[2025-03-24 08:42] LABS: Glucose - Point of Care 128 mg/dl (70-99)
[2025-03-24] MEDS: NOVOLOG FLEXPEN-LOW RESISTANCE SC (09:52)
[2025-03-24 10:34] LABS: Venous Blood Gas B.E. 12.4 mmol/L (-4 to +4); Venous Blood Gas O2 Sat % 99.4 %
[2025-03-24 11:27] VITALS: BP 128/64; PULSE 100; O2SAT 96
[2025-03-24 11:28] VITALS: BP 131/64
--- NOTE | 2025-03-24 11:31 | VNURNOTE ---
[facility] liaison met with patient and spouse at bedside. They are current with [facility] services and confirm they'd like to continue services. Pt at baseline 4L 02, has home 02 already. Resumption referral accepted in [facility].
--- NOTE | 2025-03-24 12:34 | W.PN.PUL3 ---
Today's Communication / Plan
-
- Can d/c home from Pulmonary stand point
- Recommend resuming home and tapering prednisone 30 mg/d x5 then 20mg/d x5 then back to 5 mg PO bid
- Start Azelastine nasal spray as needed for runny nose
- Out patient follow up with Dr. Guevara scheduled for 04/10.
Assessment
-
74-year-old female with a past medical history of severe COPD with chronic hypoxic + hypercapnic respite failure on home O2 + BiPAP who presents with SOB for 3-4 days. Patient's been using her BiPAP at home. She increasingly became lethargic and
was unable to perform therapy as she did previously. When patient arrived here in the ER she was short of breath and hypoxic to 80% on 4 L/min. Blood gas showed acute hypercapnia, and she was started on BiPAP and admitted to the ICU for closer
monitoring with manager web application/pulmonary service consulted for additional recommendations.
#1. Acute on chronic hypoxic & hypercapnic respiratory failure due to acute exacerbation of advanced COPD
#2. Baseline severe COPD (FEV1 22%), chronically O2, home BIPAP and Prednisone dependent, end stage
#3. H/o Hypercapnic encephalopathy
#4. Suspect developing Cor pulmonale
#5. Pulmonary Cachexia
Patient has baseline severe COPD, end stage, on Maximal medical therapy as out patient
Outpatient COPD regimen includes: Low-dose theophylline, Azithromycin for anti-inflammatory properties, Brovana/budesonide nebulizers, Ipratropium/albuterol nebulizers as needed, Ohtuvayre and Spiriva. Also been on chronic low-dose prednisone
therapy (5 mg PO bid) and was started on noninvasive mechanical ventilation 12/2024
No pneumonia noted on imaging this admission. Discontinued doxycycline, resumed p.o. azithromycin starting 03/24.
Continue Duoneb scheduled along with Budesonide. Switched IV steroids to Prednisone 30 mg daily. Recommend 30 mg/d x5 then 20 mg/d x 5 then back to 5 mg BID.
Nightly BIPAP and additional usage as needed during day time . Continue 26/12 with back up rate of 12. Compliance report reviewed, used 28/30 days with average use > 6 hrs nightly. Leak around 35, but more than desired. Patient reports having various
masks. Plan to send home with the mask she has been using here.
Patient has end stage COPD with chronic CO2 retention. VBG 7.36/72 on 03/24.
Briefly discussed regarding more palliative approach versus hospice evaluation. Patient and want to hold that off for now.
Chest x-ray 03/23 unremarkable. Minimally elevated BNP and patient develops intermittently pedal edema for which she uses torsemide on an as-needed basis. Suspect she is developing cor pulmonale.
Conditions present prior admission:
Advanced COPD: 4 L nasal cannula, noninvasive mechanical ventilation-chronic hypoxemic and hypercapnic respiratory failure
Up until recently followed at [facility]- Dr. Shi, scheduled f/u with [facility] for 04/2025.
Rheumatoid arthritis
Chronic anemia
Hypertension
Anxiety
Osteoporosis
Atrial Fibrillation
Total time spent on this consultation/encounter __48__ minutes which includes review of history, physical exam, medications, laboratory data, personal review of imaging, extensive review of outpatient records, discussion with care team and
respiratory therapy.
Subjective Data
-
Date of Service:
Date of Service: March 24, 2025
Subjective:
Patient comfortably sitting in chair in no acute distress
Review of Systems
Genitourinary: Other (No new symptoms reported.)
Objective Data
Data Reviewed
Vital Signs / I&O / Oxygen:
Vital Signs
Temp Pulse Resp BP Pulse Ox
99.0 F 103 16 131/64 100
03/24/25 11:28 03/24/25 11:28 03/24/25 11:28 03/24/25 11:28 03/24/25 11:28
Intake and Output
03/23/25 03/24/25 03/25/25
06:59 06:59 06:59
Intake Total 600 / 600 1320 / 1320
Output Total 900 / 900
Balance -300 / -300 1320 / 1320
SaO2 100
Nasal Cannula flow liters per 4
minute
Physical Exam
General: Comfortable
HEENT: Normocephalic
Cardiovascular: S1-S2
Respiratory: Wheeze (Faint end expiratory wheezing bilaterally.)
GI: Soft and Non Distended
Neurology: Awake and Alert
Skin: Warm
Labs/Micro/Reports
Lab Data
03/23/25 05:53
03/23/25 05:53
[2025-03-24 12:40] LABS: Glycohemoglobin (HgbA1c) 6.0 % (4.0-5.9)
[2025-03-24 13:32] LABS: Glucose - Point of Care 169 mg/dl (70-99)
--- NOTE | 2025-03-24 13:41 | W.DCSUMMARY ---
Discharge Summary
Discharge Data
Date of Admission: 03/21/25
Date of Discharge: 03/24/25
-
Pending Results: No
Hospital Course
Primary diagnosis:
Acute exacerbation of COPD with acute on chronic hypoxemic hypercapnic respiratory failure
Secondary diagnosis:
Chronic hypoxic hypercapnic respiratory failure on home BiPAP
Paroxysmal atrial fibrillation
Anxiety/depression
History of iron deficiency
Chronic left arm wound
Hospital course:
This a 74-year-old female with history of severe COPD, chronic hypoxic and hypercarbic respiratory failure on 4 L home O2, paroxysmal atrial fibrillation during episode of COPD exacerbation, iron deficiency and anemia on iron sucrose infusions,
hypertension, anxiety and depression presents to the emergency department with rapid worsening of her respiratory status over the last 4 days.
She is on home BiPAP and states she is compliant. Her ABG showed pH of 7.2 with a pCO2 of 95 on admission. Chest x-ray did not show any evidence of focal consolidation or pneumonia. She was active bronchospasm. [place] a COPD exacerbation making
things worse for her. She was put on BiPAP, steroids, nebulizers and oral doxycycline.
She is slowly improving and was more alert and oriented and back to baseline. Follow-up VBG showed normalization of pH. When she was stable steroids with transition to oral prednisone to continue 30 mg daily for 5 days and taper to 20 mg daily for
5 days and then resume her home dose of prednisone 5 mg twice a day.
Pulmonary were involved and reviewed her BiPAP-nightly BIPAP and additional usage as needed during day time . Continue 26/12 with back up rate of 12. Compliance report reviewed, used 28/30 days with average use > 6 hrs nightly. Leak around 35, but
more than desired. Patient reports having various masks. Plan to send home with the mask she has been using here. She will follow with pulmonary on April 10.
She was in sinus rhythm during the stay here. Cardizem was continued. She is not on anticoagulation as an outpatient at this point.
Today she is stable on 4 L. Slept okay. Voicing no specific complaints. No shortness of breath.
Afebrile. Pulse 78. Blood pressure 131/64. Faint bilateral wheeze which is improved noted today. Abdomen is soft. Mentating well. Alert and oriented x 3.
Deemed medically stable for discharge home today.
Consultants on board:
Pulmonary-Angel Jimenez
Portions of this chart may have been created with voice recognition software. Occasional wrong word or 'sound alike' substitutions may have occurred due to the inherent limitations of voice recognition software.
Discharge Plan
-
Patient Disposition: Home with Home Care
Discharge Diagnosis/Procedures: Acute COPD exacerbation with acute on chronic hypoxemic hypercarbic respiratory failure ;Parox Afib
Diet: Regular
Activity: As tolerated
Driving Restrictions: No driving
Bathing Restrictions: None
Other Services: VN
Activity Restrictions/Additional Instructions:
Wound Care Instructions
L arm: clean with soap and water, Vaseline gauze, ABD pad and mercy, secure with fer wrap. Change q other day and prn drainage.
Sacrum: clean with soap and water, sacral silicone foam change q 3 days and prn soilage.
Air cushion when sitting, can take upon discharge
turn and reposition onto sides when in bed
Increase protein in diet, protein shakes btw meals.
Follow up at wound care center if not healing, call for an appointment.
Referrals:
Odalis Maldonado DO [Family Provider, Family Practice] - in less than 1 week
Prescriptions:
New
prednisone 10 mg tablet
10 mg PO DIRECTED Qty: 25 0RF
Rx Instructions:
30mg for 5 days then
20mg for 5 days and continue your maintainence dose
Continued
ipratropium-albuterol 0.5 mg-3 mg(2.5 mg base)/3 mL Solution For Nebulization
3 ml INHALATION R QID
valacyclovir 500 mg Tablet
500 mg PO HS
budesonide 0.5 mg/2 mL Suspension For Nebulization
0.5 mg inhalation R BID
Eugene-24 200 mg Capsule,Extended Release 24hr
200 mg PO HS
arformoterol [Brovana] 15 mcg/2 mL Solution For Nebulization
2 ml INHALATION R BID
Spiriva Respimat 2.5 mcg/actuation Mist
2 puff INHALATION R HS
Combivent Respimat 20-100 mcg/actuation Mist
1 puff INHALATION R BIDPRN PRN (Reason: sob)
azithromycin 250 mg tablet
250 mg PO MOWEFR@1999
cyclosporine [Restasis] 0.05 % dropperette
1 drp BOTH EYES BID
spironolactone 25 mg Tablet
25 mg PO DAILYPRN PRN (Reason: blood pressure-when she remembers)
cholecalciferol (vitamin D3) [Vitamin D3] 25 mcg (1,000 unit) Tablet
25 mcg PO MOTUWETHFRSA
ascorbic acid (vitamin C) [Vitamin C] 1,000 mg Tablet
1,000 mg PO QPM
cyanocobalamin (vitamin B-12) 50 mcg Tablet
20 mcg PO MOWEFR@1999
albuterol sulfate 90 mcg/actuation Hfa Aerosol Inhaler
2 puff INHALATION R Q4HPRN PRN (Reason: sob)
Ohtuvayre 3 mg/2.5 mL Suspension For Nebulization
2.5 ml INHALATION R BID
Patient Comments:
11/13/2024, pt. fills through [facility].
prednisone 5 mg tablet
5 mg PO BID
sertraline 25 mg Tablet
50 mg PO HS
Nurtec ODT 75 mg Tablet,Disintegrating
75 mg PO DAILYPRN PRN (Reason: mirgraines)
B12 Active
20 mg PO DAILY
Rx Instructions:
3x a week
lidocaine [Blue-Emu Lidocaine Patch] 4 % Adhesive Patch,Medicated
1 patch topical 4-8XD
Rx Instructions:
as needed, max 12 hours on
potassium chloride 10 mEq Tablet Extended Release
10 meq PO BID
lidocaine-aloe vera 0.5 % Gel
1 applic TOPICAL BID PRN (Reason: pain)
minerals Tablet
1 tab PO DAILY
Rx Instructions:
chelated mag 200 mg, 6 x a week
diltiazem HCl [Cardizem] 30 mg tablet
30 mg PO QID Qty: 120 0RF
Rx Instructions:
take three time daily
if at night HR >100 and Systolic blood pressure >110 then can take 1 additional tab
Changed
torsemide 10 mg Tablet
10 mg PO MOWEFR Qty: 30 0RF
Rx Instructions:
Take one to two tablets orally 1 to 2 times daily,
Discontinued
iron sucrose 100 mg iron/5 mL Solution
100 mg IV DAILY PRN (Reason: ferritin level less than 80)
prednisone 10 mg Tablet
See Taper PO DAILY Qty: 30 0RF
Taper: Prednisone DC Starting at 40 mg daily
30 mg Daily for 5 Days and 0 Hour
20 mg Daily for 5 Days and 0 Hour
10 mg Daily for 5 Days and 0 Hour
Discharge Orders:
Discharge Patient (As Directed); Ordered 03/24/25
Ordered By: Vinny Pereira
Discharge Date and Time
Print Language: CAMEROONIAN
[2025-03-24] MEDS: NOVOLOG FLEXPEN-LOW RESISTANCE 1 UNITS SC (13:51)
--- NOTE | 2025-03-24 14:33 | CM ---
CM following re: discharge planning.
Reviewed pt's chart, met with pt and pt's at bedside.
Discharge order noted. Both pt and her are aware, expressed their agreement. IMM reviewed, placed on chart, pt has a copy. Pt's stated he has portable O2 tank in the car and he will transport his spouse home.
Pt referred to [facility]
Please fax discharge instructions to [facility] at [phone].
D/C plan: home with [facility] and family support. to transport.
[2025-03-24 15:32] VITALS: BP 141/73
[2025-03-24] MEDS: DUONEB INH (16:06)
== END 2025-03-24 17:17 | disposition home health service (06) | DRG 189 ==
LOC: 2 NORTH 04:57
PROVIDERS: ADMITTING PHYSICIAN Internal Medicine; ATTENDING PHYSICIAN Internal Medicine; CONSULT PHYSICIAN Internal Medicine Critical Care Medicine; EMERGENCY PHYSICIAN Student in an Organized Health Care Education/Training Program; FAMILY PHYSICIAN Family Medicine
PROC: 5A09357 Assistance with Respiratory Ventilation, Less than 24 Consecutive Hours, Continuous Positive Airway Pressure (ICD-10-PCS; 2025-03-21)
DX: J96.22 Acute and chronic respiratory failure with hypercapnia (principal); E44.0 Moderate protein-calorie malnutrition; Z68.1 Body mass index [BMI] 19.9 or less, adult; J44.1 Chronic obstructive pulmonary disease with (acute) exacerbation; J96.21 Acute and chronic respiratory failure with hypoxia; J43.9 Emphysema, unspecified; I48.0 Paroxysmal atrial fibrillation; F32.A Depression, unspecified; I10 Essential (primary) hypertension; F41.9 Anxiety disorder, unspecified; D50.9 Iron deficiency anemia, unspecified; I89.0 Lymphedema, not elsewhere classified; G43.909 Migraine, unspecified, not intractable, without status migrainosus; M81.0 Age-related osteoporosis without current pathological fracture; I27.81 Cor pulmonale (chronic); R73.03 Prediabetes; L89.152 Pressure ulcer of sacral region, stage 2; M06.9 Rheumatoid arthritis, unspecified; Z66 Do not resuscitate; Z99.81 Dependence on supplemental oxygen; Z87.891 Personal history of nicotine dependence; Z90.710 Acquired absence of both cervix and uterus; Z79.51 Long term (current) use of inhaled steroids; Z79.52 Long term (current) use of systemic steroids; Z11.52 Encounter for screening for COVID-19
CPT/HCPCS: 36600; 71045; 80048; 80053; 82728; 82805; 82947; 82962; 83036; 83540; 83550; 83735; 83880; 84100; 85025; 87502; 87811; 92526; 92610; 93005; 94640; 94660; 97116; 97163; 97167; 97530; 99291; J2916

== ENCOUNTER 2025-04-13 09:13 | Inpatient (IN) | payer MEDICARE, SELFPAY ==
[2025-04-13] VITALS (30 sets, daily range): BP systolic 84–138; BP diastolic 55–73; PULSE 2–108; BMI 19.6; BMI 17.4; BMI 18.9
[2025-04-13 04:38] LABS: Hematocrit 42.3 % (37.0-47.0); Hemoglobin 12.8 g/dL (12.0-16.0); Mean Corp Hgb Conc. 30.3 g/dL (33.0-37.0); Mean Corpuscular Volume 95.3 fL (81.0-99.0); Nucleated Red Blood Cells % 0 %; Platelet Count 180 10^3/uL (130-400); Red Cell Dist. Width 15.9 % (11.5-14.5)
[2025-04-13 04:39] LABS: B.E. 13.4 mmol/L; O2 Saturation % 99.4 % (94-98); PO2 103 mmHg (83-108)
[2025-04-13 04:43] LABS: HCO3 42.7 mmol/L (21-28); PCO2 81 mmHg (32-35)
[2025-04-13 05:06] LABS: ALT (SGPT) 35 U/L (0-35); AST (SGOT) 40 U/L (14-36); Albumin 4.3 g/dl (3.5-5.0); Alkaline Phosphatase 129 U/L (38-126); Blood Urea Nitrogen 18 mg/dl (7-17); Calcium 9.4 mg/dl (8.4-10.2); Chloride 99 mmol/L (98-107); Estimated Creatinine Clearance 54 ml/min; Glucose 134 mg/dl (70-99); Potassium 4.2 mmol/L (3.5-5.1); Sodium 143 mmol/L (135-145); Total Protein 6.6 g/dl (6.3-8.2); eGFR > 60.00
[2025-04-13 05:26] LABS: Troponin I 0.038 ng/ml
[2025-04-13 05:33] LABS: Carbon Dioxide 42 mmol/L (22-30)
--- NOTE | 2025-04-13 06:38 | ED.GENMED ---
History of Present Illness
General
Chief Complaint: Breathing Problem
Source: patient and family (Daughter)
Time Seen by Provider: 04/13/25 05:15
History of Present Illness
History of Present Illness:
74-year-old female presents to the emergency room complaining for shortness of breath. Patient has history of COPD which has reached end-stage. She is on chronic oxygen. She uses BiPAP at night. Her pulmonary function testing most recently
showed about 20% lung has history of COPD which has reached end stage. Patient has noted thicker sputum recently. Her daughter noticed her work of breathing to be increased. They were told should she have any of these things happen they should
come back to the emergency room. Patient recently saw Dr. Guevara in the office. No fever. No chest pain.
Past History
Past History
ED Past Medical History: COPD (emphysema) and Other (anemia, RA, Migraines, )
ED Past Surgical History: , Gynecological (Hysterectomy, Fibroid removed, ), Orthopedic (Right wrist surgery, Left tibial fracture) and Other (Dental surgery cataracts, )
Social History
Tobacco: Former smoker
Alcohol: None
Drug: None
Personal:
Living: with family
Employment: Other
Family History
Family History: Other
Phy Exam
Physical Exam
Physical Exam:
General: Awake, Alert, Oriented X3. Appears chronically ill. On BiPAP
Vitals: unremarkable
Head: Atraumatic
Eyes: Pupils equal, EOMI
Throat: Airway intact, no exudates dry mucosa
Neck: Trachea midline
Lungs: Markedly decreased breath sounds bilaterally which are coarse
Heart: Regular rate, no murmurs
Abd: Soft, Nontender, No pulsatile mass
Neuro: Nonfocal
Skin: Warm, dry, no rash
Extremities: pulses equal b/l, trace edema
Scores
Heart Failure Risk
Heart Failure Risk Score: Not Applicable
Sepsis
Sepsis Screening
Sepsis Assessment: Sepsis Ruled Out
Sepsis Screen
Sepsis Screen: Sepsis Ruled Out
Date: 04/13/25
Time: 13:41
Course
Orders/Labs/Results
Orders:
Orders
04/13/25 03:01
EKG [Electrocardiogram (*1)] Urgent
Reason for Study: Shortness of Breath
EKG- Treatment ONCE
04/13/25 04:22
CR Chest Portable - 1 View Urgent
Comment:
Reason For Exam: ACUTE ON CHRONIC SOB
Reason Study Needs to be Portable: Unable to Transport
04/13/25 04:27
Complete Blood Count/With Diff Urgent
Comprehensive Metabolic Panel Urgent
Iron Urgent
Comment: ADD ON
NT-proBNP Urgent
Total Iron Binding Urgent
Comment: ADD ON
Troponin I Urgent
04/13/25 04:30
ABG [Arterial Blood Gas] Urgent
%Oxygen/Room Air: 4 L NC
04/13/25 05:08
Bipap [RESP] Urgent
Patient to use own unit?: No
Inspiratory Pressure (cm H2O): 18
Expiratory Pressure (cm H2O): 8
Oxygen Liter Flow: 4
04/13/25 Breakfast
Regular
At Your Request: Limited Participation
04/13/25 06:35
Azithromycin [Zithromax] 250 mg PO NOW STA
Dexamethasone Sod Phosphate [Decadron] 10 mg IV NOW STA
Diltiazem [Cardizem] 30 mg PO NOW STA
Ipratropium/Albuterol Sulfate [Duoneb] 3 ml INH R NOW STA
Valacyclovir HCl [Valtrex] 500 mg PO NOW STA
04/13/25 08:24
Admit/Transfer Patient As Directed
Co-Sign Provider:
Level of Care: Inpatient admission
Assign to:: ICU
Physician / Group: hospitalist
Diagnosis: severe copd exacerbation
Reason for Hospitalization: severe COPD
Expected length of stay greater than two midnights?: Yes
ELOS- Estimated Length of Stay in days: 3
I certify the patient meets the requirements for IP care: Yes
PRN Pain Medication Management As Directed
May give lesser potent ordered pain med per pt: Yes
preference::
Protocol:: Medication orders for pain may be administered in a
manner that supports deferring to patient preference
when the pt is:
- Requesting an ordered lesser potent pain medication.
Least to most potent pain medications are defined
as: acetaminophen < NSAID < tramadol < opioids
(morphine, oxycodone, hydromorphone).
- Requesting a lesser dose of the same medication IF
ORDERED.
- Requesting a less intrusive route of administration
if both routes are prescribed by the provider (PO <
IV).
04/13/25 08:26
Code Status As Directed
Resuscitation Status: Do not resuscitate
Reached after discussion with pt or family/Healthcare POA: Yes
DNR Bracelet Application ONCE
04/13/25 09:05
COVID-19 Antigen Urgent
Source: Nasal Swab
Influenza A+B Rapid Molecular Urgent
TATE Source: Nasal Swab
Specimen Description:
04/13/25 11:16
Guaifenesin [Mucinex] 600 mg PO Q12 PRN
Ipratropium/Albuterol Sulfate [Duoneb] 3 ml INH R Q4HPRN PRN
04/13/25 11:16
Activity As Directed
Activity Level: Out of Bed-Early Mobility
Intake/ Output As Directed
Frequency: Per unit guidelines
Vital Signs As Directed
Frequency: Per unit guidelines
Copd Education [RESP] Routine
O2 Therapy [RESP] Routine
Titrate/Wean O2 to maintain O2 sat greater than (%): 91
Special Instructions: adjust, if necessary, to avoid hyperoxia in CO2 retainers.
Use High Flow O2 if necessary
Ot Eval And Treat Routine
Pt Eval And Treat Routine
Activity Level: Out of Bed-Early Mobility
DX Deep Vein Thrombosis Video Routine
04/13/25 12:00
Ipratropium/Albuterol Sulfate [Duoneb] 3 ml INH R QID
04/13/25 16:00
Dexamethasone Sod Phosphate [Decadron] 4 mg IV Q8
04/13/25 18:00
Enoxaparin Sodium [Lovenox] 30 mg SC QPM
04/13/25 20:00
Budesonide [Pulmicort] 0.5 mg INH R BID
04/14/25 06:00
Basic Metabolic Panel IN AM
Complete Blood Count/With Diff IN AM
Abnormal Lab Results
04/13/25 04/13/25
04:30
WBC 12.3 H 10^3/uL
(4.8-10.8)
MCHC 30.3 L g/dL
(33.0-37.0)
RDW 15.9 H %
(11.5-14.5)
Abs Immat Gran (auto) 0.1 H 10^3/uL
(0-0.05)
Absolute Neuts (auto) 10.6 H 10^3/uL
(1.4-6.5)
Absolute Lymphs (auto) 0.4 L 10^3/uL
(1.2-3.4)
Absolute Monos (auto) 1.0 H 10^3/uL
(0.1-0.6)
Neutrophils % 86.5 H %
(42.2-75.2)
Lymphocytes % 3.5 L %
(20.5-51.1)
pH 7.33 L
(7.35-7.45)
pCO2 81 H* mmHg
(32-35)
HCO3 42.7 H* mmol/L
(21-28)
ABG O2 Sat (Measured) 99.4 H %
(94-98)
Carbon Dioxide 42 H mmol/L
(22-30)
BUN 18 H mg/dl
(7-17)
Creatinine 0.4 L mg/dL
(0.6-1.0)
Glucose 134 H mg/dl
(70-99)
% Saturation 16 L %
(20-50)
AST 40 H U/L
(14-36)
Alkaline Phosphatase 129 H U/L
(38-126)
Troponin I 0.038 H* ng/ml
04/13/25 04:27
04/13/25 04:27
Vital Signs
Initial and Last Documented VS:
Initial Vital Signs
Temp Pulse Resp BP Pulse Ox
98.2 F 110 24 114/66 98
04/13/25 02:36 04/13/25 02:36 04/13/25 02:36 04/13/25 02:36 04/13/25 02:36
Last Documented Vital Signs
Temp Pulse Resp BP Pulse Ox
98.4 F 108 28 111/58 94
04/13/25 13:01 04/13/25 12:52 04/13/25 12:52 04/13/25 12:00 04/13/25 12:52
MDM/Problems Addressed
Differential Diagnosis Includes:
Pneumonia, spontaneous pneumothorax, COPD exacerbation
MDM/Problems Addressed:
Patient presents with increased work of breathing. She was placed on BiPAP shortly after arrival. She has some improvement on BiPAP. Chest x-ray shows no significant change from previous chest x-ray. Will resume her azithromycin. IV Decadron
given. Continue BiPAP. Will administer nebulized albuterol and Atrovent. Patient will require hospitalization. ABG shows mild drop of pH to 7.33 with an elevated pCO2 of 81. Mostly compensated. Trope mildly elevated which I think is not
related to cardiac ischemia. Chest x-ray appears unchanged.
Patient somewhat stabilized on BiPAP. Will obviously require hospitalization for further management.
Chronic conditions affecting care: Arrhythmia
*Radiology
Radiology exam reviewed: preliminary read by ED provider (No significant change from previous chest x-ray on my review)
*Pulse Oximetry
SaO2: 100
Nasal Cannula flow liters per minute: 4
Patient hypoxic: yes
*EKG
Interpreted by ED Provider?: Yes
Heart Rate: 107
Rate: tachycardiac
Rhythm: sinus and PAC's
[place]: normal axis
Interval: normal interval
QRS Pattern: normal QRS
Ischemia: non-specific ST changes
*Customer Trainer Interpretation
Rate: tachycardiac
Interpretation: normal
Rhythm: PAC's
*Critical Care Note
Total Time (30-74mins, 75-104mins- exclusive of procedures): 35 min
comment:
Critical care statement: A total of 35 minutes of critical care time was provided for this patient. This includes management of unstable vital signs, evaluation of the patient at bedside, reviewing the patient's pertinent medical records, discussion
with consultants, review of old EKGs and review of pertinent medical records. This time with separate from time utilized to perform the aforementioned documented procedures
ED Attending Note
-
Portions of this chart may have been created with voice recognition software.� Occasional wrong word or��sound alike� substitutions may have occurred due to the inherent limitations of voice recognition software.
Discharge Plan
Departure
Patient Disposition: Admit
Date of Disposition: 04/13/25
Time of Disposition: 08:06
Admit to: IMU
Presentation/result/management discussed w/ accepting MD/DO: Hospitalist
Condition: Serious
Discharge Problem:
COPD (chronic obstructive pulmonary disease) with emphysema, Acute hypoxic respiratory failure
Interventions
Interventions:
*General Assessment Last Done: 04/13/25 02:44
*ED Influenza Vaccine History Last Done: 04/13/25 02:44
[facility] Fall Risk Assessment Tool Last Done: 04/13/25 02:49
ED- Cardiac Assessment Last Done: 04/13/25 02:50
ED- Pulmonary Assessment Last Done: 04/13/25 02:53
[2025-04-13] MEDS: CARDIZEM 30 MG PO (06:46)
[2025-04-13] MEDS: ZITHROMAX 250 MG PO (06:47)
[2025-04-13] MEDS: VALTREX 500 MG PO (06:47)
[2025-04-13] MEDS: DECADRON 10 MG IV (06:47)
[2025-04-13] MEDS: DUONEB 3 ML INH ×4 (06:48→20:00)
--- NOTE | 2025-04-13 08:26 | VNURNOTE ---
Chart reviewed. Patient is current with [facility]. Will continue to follow hospital course and DC plans.
--- NOTE | 2025-04-13 08:31 | HPS.HSE ---
Addendum entered and electronically signed by Luci Ferris MD 04/13/25 13:25:
I personally performed a history and physical exam of the patient and discussed management with the resident. I reviewed the resident's note and agree with the documented findings and plan of care HPI/CC.
GENERAL: well developed, well nourished, female in some resp distress, cannot speak in full sentences
HEENT: NC/AT--on BiPAP with accessory muscle use and dyssynchronous breathing pattern
HEART: regular rate and rhythm, +S1, +S2
LUNGS : no air movement at all appreciated--no wheezing
ABDOM: soft, nontender, nondistended, + bowel sounds
EXT: no cyanosis, clubbing, or edema
NEUROLOGIC: grossly intact
Acute on chronic hypoxemic/hypercarbic respiratory failure due to severe COPD exacerbation--unclear trigger vs just progressive and end stage--pt with chronic hypoxemia with O2 dependency at home with reduced FEV1--pt DOES NOT want intubation or CPR
BUT DOES want as much treatment as we can provide short of that--ADMIT to ICU--consult wheel press clerk--decadron 4 mg IV Q8H, nebs, pulmicort, follow ABGs--BiPAP support as needed but may need NIV ventilation if worsens--small dose morphine as need for
air hunger--cont home zithromax--COVID/FLU negative--goal O2 sats 88-92%
Leukocytosis with left shift--CXR without infiltrates--hold on further ABX --cont zithromax
paroxysmal atrial fibrillation--sinus rhythm, rate controlled, cont diltiazem
History of anxiety and depression--Continue sertraline
History of iron deficiency anemia required infusions--check iron studies
Dr. Santo and I discussed about goals of care with the patient's daughter regarding hospice care given the patient's advanced COPD with multiple prior hospitalizations, ongoing dependence on BiPAP and oxygen, and persistent symptom burden. We
discussed the role of comfort focused measures including use of as needed morphine for relief of air hunger. The daughter reported that hospice had been discussed during previous hospitalization and the patient had been evaluated by the hospice
nurse at that time. Previously the patient has not been open to hospice enrollment and declined further discussion. At this time both daughter and the patient and are agreeable to initiating as needed morphine for symptomatic relief. We have not
talked directly to the patient about hospice care however begun introducing this discussion starting comfort directed management using morphine, while continuing to reassess goals of care.
code status--DNR
DVT proph--Lovenox
Original Note:
Family Physician
-
Family Physician: Odalis Maldonado
Chief Complaint
-
Shortness of breath
History of Present Illness
74-year-old female with history of end-stage COPD, rheumatoid arthritis paroxysmal atrial fibrillation, lymphedema, presents to the ED for shortness of breath. Patient has history of severe COPD and uses BiPAP at home at night and during the
afternoons when she naps. She is on 4 to 6 L of oxygen [id number]. Her pulmonary function testing more recently showed steady decline in FEV1 from previous. Patient has noted increased sputum production recently. She noticed increased work
of breathing, not able to do her regular activities. She was recently seen by a week ago. She has had multiple hospitalizations in the past year for COPD exacerbation recent was on 03/21/25.
Medical History
Past Medical History
Past Medical History: Reports Other (end-stage COPD, rheumatoid arthritis paroxysmal atrial fibrillation, lymphedema)
Past Surgical History: Reports Other (, Gynecological (Hysterectomy, Fibroid removed, ), Orthopedic (Right wrist surgery, Left tibial fracture) and Other (Dental surgery cataracts, ))
Social History
Tobacco: Former Smoker
Alcohol: None
Drug: None
Personal:
Living: With Family
Employment: Retired
Family History
Family History: Not pertinent
Allergies / Home Medications
Allergies reflects when Allergies were last updated in [facility].
Home Medications with original date entered in [employer]
Allergy/Medication List:
Allergies
Allergy/AdvReac Type Severity Reaction Status Date / Time
mannitol (From Reclast) Allergy Swelling Verified 12/23/24 12:28
zoledronic acid (From Allergy Swelling Verified 12/23/24 12:28
Reclast)
Home Medications
arformoterol 15 mcg/2 mL solution for nebulization (Brovana) 2 ml inhalation R BID Lung/Breathing Issues 06/27/23
azithromycin 250 mg tablet 250 mg PO MOWEFR@1999 copd 06/27/23
budesonide 0.5 mg/2 mL suspension for nebulization 0.5 mg inhalation R BID Lung/Breathing Issues 06/27/23
cyclosporine 0.05 % eye drops in a dropperette (Restasis) 1 drp BOTH EYES BID dry eyes 06/27/23
ipratropium 0.5 mg-albuterol 3 mg (2.5 mg base)/3 mL nebulization soln 3 ml inhalation R QID Lung/Breathing Issues 06/27/23
ipratropium 20 mcg-albuterol 100 mcg/actuation mist for inhalation (Combivent Respimat) 1 puff inhalation R BIDPRN PRN sob 06/27/23
theophylline 200 mg capsule,extended release 24 hr (Eugene-24) 200 mg PO HS copd 06/27/23
tiotropium bromide 2.5 mcg/actuation mist for inhalation (Spiriva Respimat) 2 puff inhalation R HS copd 06/27/23
valacyclovir 500 mg tablet 500 mg PO HS viral infection 06/27/23
cholecalciferol (vitamin D3) 25 mcg (1,000 unit) tablet (Vitamin D3) 25 mcg PO MOTUWETHFRSA Supplement 07/16/23
spironolactone 25 mg tablet 25 mg PO DAILYPRN PRN blood pressure-when she remembers 07/16/23
albuterol sulfate 90 mcg/actuation aerosol inhaler 2 puff inhalation R Q4HPRN PRN sob 11/13/24
ascorbic acid (vitamin C) 1,000 mg tablet (Vitamin C) 1,000 mg PO QPM Supplement 11/13/24
cyanocobalamin (vitamin B-12) 50 mcg tablet 20 mcg PO MOWEFR@2000 Supplement 11/13/24
ensifentrine 3 mg/2.5 mL suspension for nebulization (Ohtuvayre) 2.5 ml inhalation R BID Lung/Breathing Issues 11/13/24
prednisone 5 mg tablet 5 mg PO BID rheumatoid arthritis 11/13/24
rimegepant 75 mg disintegrating tablet (Nurtec ODT) 75 mg PO DAILYPRN PRN mirgraines 12/23/24
sertraline 25 mg tablet 50 mg PO HS Mental Health/Anxiety 12/23/24
B12 Active 20 mg PO DAILY Supplement 02/14/25
lidocaine 4 % topical patch (Blue-Emu Lidocaine Patch) 1 patch topical 4-8XD Pain 02/14/25
lidocaine-aloe vera 0.5 % topical gel 1 applic topical BID PRN pain 02/14/25
minerals 1 tab PO DAILY Supplement 02/14/25
potassium chloride 10 mEq tablet,extended release 10 meq PO BID Electrolyte Repletion 02/14/25
diltiazem HCl 30 mg tablet (Cardizem) 30 mg PO QID #120 tabs 02/22/25
prednisone 10 mg tablet 10 mg PO DIRECTED #25 tabs 03/24/25
torsemide 10 mg tablet 10 mg PO MOWEFR fluid retention #30 tabs 03/24/25
Review of Systems
-
History Source: Patient and Family
A 12 point ROS was completed and negative except as noted: Yes
Respiratory: Reports Cough and Trouble Breathing
Physical Exam
Vital Signs
Vital Signs
Temp Pulse Resp BP Pulse Ox
98.2 F 101 21 116/62 99
04/13/25 02:36 04/13/25 08:02 04/13/25 08:02 04/13/25 08:02 04/13/25 08:01
Physical Exam
General: Other (Not able to speak in full sentences due to shortness of breath on BiPAP, moderate respiratory distress, cachectic, )
HEENT: NormoCephalic and Anicteric
Respiratory: Other (No air movement, use of accessory muscles, not able to speak in full sentences due to SOB on BiPAP)
Cardiac: S1/S2 and Regular Rhythm
GI: Soft, Non Tender and Non Distended
Musculoskeletal: No Cyanosis
Skin: Other (Left forearm wound which is healing wrapped in Abiodun wrap)
Neuro: AO x 3
Hematologic/Lymphatic: No Lymphadenopathy
Psych: Calm
Laboratory Results
-
04/13/25 04:27
04/13/25 04:27
Laboratory Results
pH 7.33 (7.35-7.45) L 04/13/25 04:30
pCO2 81 mmHg (32-35) H* 04/13/25 04:30
pO2 103 mmHg (83-108) 04/13/25 04:30
HCO3 42.7 mmol/L (21-28) H* 04/13/25 04:30
Total Bilirubin 0.4 mg/dl (0.2-1.3) 04/13/25 04:27
AST 40 U/L (14-36) H 04/13/25 04:27
ALT 35 U/L (0-35) 04/13/25 04:27
Alkaline Phosphatase 129 U/L (38-126) H 04/13/25 04:27
Troponin I 0.038 ng/ml H* 04/13/25 04:27
Data Reviewed
-
Diagnostic Radiology: Report Reviewed by me and Discussed with Physician
Medical Tests (Nuc Med, Echo, EKG etc): Report Reviewed by me and Discussed with Physician
Lab Data: Labs Reviewed by me and Discussed with Physician
Impression/Plan
-
IMPRESSION:
Acute on chronic severe COPD exacerbation
Acute on chronic hypercapnic respiratory failure
Leukocytosis
History of paroxysmal atrial fibrillation
History of anxiety/depression
History of iron deficiency anemia
PLAN:
Acute on chronic severe COPD exacerbation
Use of accessory muscles, unable to speak in full sentences, tachycardic, tachypnea
Admit to the ICU
BiPAP during night and afternoons naps.
IV Decadron 4 mg Q8
DuoNeb 4 times daily and as needed
Budesonide twice daily
Start morphine 0.5 mg IV as needed to help with air hunger
Hold home dose oral prednisone
Continue home dose of azithromycin 250 mg MWF
Consult wheel press clerk
Check COVID and flu
Acute on chronic hypercapnic respiratory failure
Chronic bipap and O2 use at home
Continue BiPAP during night and afternoon naps
Continue oxygen around the clock , goal spo2 88-92 %
Leukocytosis
White count 12,300, mild left shift. Afebrile
Increase productive cough in the past 2 days
Chest x-ray is unremarkable
Check COVID and flu
History of paroxysmal atrial fibrillation
Normal sinus rhythm
Continue diltiazem
History of anxiety and depression
Continue sertraline
History of iron deficiency anemia
History of iron infusions.
Check iron, TIBC, ferritin.
Dr. Vidal I discussed about goals of care with the patient's daughter regarding hospice care given the patient's advanced COPD with multiple prior hospitalizations, ongoing dependence on BiPAP and oxygen, and persistent symptom burden. We
discussed the role of comfort focused measures including use of as needed morphine for relief of air hunger. The daughter reported that hospice had been discussed during previous hospitalization and the patient had been evaluated by the hospice
nurse at that time. Previously the patient has been were not open to hospice enrollment and declined further discussion. At this time both daughter and the patient and are agreeable to initiating as needed morphine for symptomatic relief. We have
not talked directly to the patient about hospice care however begun introducing this discussion starting comfort directed management using morphine, while continuing to reassess goals of care.
DNR
Regular diet
Lovenox
[2025-04-13 09:29] LABS: COVID-19 Antigen Negative (Negative)
[2025-04-13 10:23] LABS: B.E. 10.9 mmol/L; HCO3 38.5 mmol/L (21-28); O2 Saturation % 96.9 % (94-98); PCO2 65 mmHg (32-35); PO2 77 mmHg (83-108)
--- NOTE | 2025-04-13 10:39 | EDCM ---
Reviewed chart and met with pt and daughter bedside in ED. Lives with her in second floor apartment, no JOSE, has elevator access.
Needs assistance with ADLs, personal care, ambulation and mobility, assists. Ambulates with RW in home, uses WC when outside home. Has home O2 wears 4L NC continuously, supplied by [employer]. Also has BiPAP she uses at night, supplied by
[employer].
This is her 5th admission for COPD this year.
Confirms prescription coverage.
Current with [facility], RN/PT/OT, daughter notified them, Domi Goodson is aware.
PCP: Odalis Maldonado
Pharmacy: [facility]
Daughter hoping for discharge home with [facility], CM will continue to follow for all discharge planning needs.
--- NOTE | 2025-04-13 12:20 | PTCARENOTE ---
Took pt as ICU hold at aprox 11am. Pt currently on bipap 94%- lung decreased, no wheezes noted. Vitals stable. No complaints at this time. Report given to Isabel GOOD in ICU. Will transport with RT to ICU.
[2025-04-13 12:28] LABS: Iron 53 ug/dl (37-170)
[2025-04-13 12:37] LABS: Total Iron Binding Capacity 325 ug/dl (265-497)
--- NOTE | 2025-04-13 12:45 | PTCARENOTE ---
Patient received from the ED via stretcher accompanied by RN and respiratory therapist. Transferred and admitted to ICU bed 3360. See weigh tank operator charted on worklist flowsheet. BBS clear anteriorly. BBS posteriorly diminished with expiratory
wheezes in the bases and fine crackles right base. Patient on BIPAP, sats maintained at 94-96%. S1S2 regular with soft murmur. SR-ST on CM with occasional pac's. A&O x 4, flat affect, withdrawn. Daughter is at the bedside. CHG bath given with linen
change. Patient is refusing lunch tray, tachypneic and TRUONG. Held po intake for now. Protective foams to sacrum and bilateral heels. Coccyx with granulated tissue, sacrum very red. Left forearm with dressing CDI. Heels elevated off of bed, turned
every 2 hours. Awaiting wound consult. IV site WDL. Dr. Watkins updated with patient status. Bed in low and locked position, bed alarm on, call colon within reach.
[2025-04-13 12:57] LABS: Glucose - Point of Care 123 mg/dl (70-99)
--- NOTE | 2025-04-13 14:00 | CON.INTV ---
Consultation
Consultation Request
Date/Time Consultation Requested: 04/13/25
Date/Time Consultation Performed: 04/13/25
Performing Provider: June
Reason for Consultation: ICU
Medical History
-
History of Present Illness:
74-year-old female with previous history of severe end-stage COPD, chronic hypoxemic and hypercarbic respiratory failure on BiPAP, presenting to ER with worsening shortness of breath. She had been using her BiPAP nightly, noticed progressive
shortness of breath in less than 16 hours after usage. Was previously admitted and discharged on 03/24/2025, 02/22/2025, 12/28/2024, 11/14/2024 for similar. Hospice was discussed on previous hospitalizations but patient was not ready. She was placed
on morphine at home which was discontinued. On arrival ABG obtained with pH 7.33, pCO2 81, bicarb 42 satting 99%. She is placed on continuous BiPAP. She is a DNR. Admitted to ICU for tenuous respiratory status.
Past Medical History
Past Medical History: Other (see list below)
Social History
Tobacco: Former Smoker
Alcohol: None
Drug: None
Family History
Family History: Reviewed & Not Pertinent
Allergies / Home Medications
Allergies
Allergy/AdvReac Type Severity Reaction Status Date / Time
mannitol (From Reclast) Allergy Swelling Verified 12/23/24 12:28
zoledronic acid (From Allergy Swelling Verified 12/23/24 12:28
Reclast)
Home Medications
�Medication �Instructions �Recorded �Confirmed �Last Taken �Type
arformoterol 15 mcg/2 mL solution 2 ml inhalation R BID 06/27/23 04/13/25 12/23/24 History
for nebulization (Brovana) Lung/Breathing Issues
azithromycin 250 mg tablet 250 mg PO MOWEFR@1999 copd 06/27/23 04/13/25 12/21/24 History
budesonide 0.5 mg/2 mL suspension 0.5 mg inhalation R BID 02/04/13/25 12/23/24 History
for nebulization Lung/Breathing Issues
cyclosporine 0.05 % eye drops in a 1 drp BOTH EYES BID dry eyes 06/27/23 04/13/25 12/23/24 History
dropperette (Restasis)
ipratropium 0.5 mg-albuterol 3 mg 3 ml inhalation R QID 06/27/23 04/13/25 12/23/24 History
(2.5 mg base)/3 mL nebulization Lung/Breathing Issues
soln
ipratropium 20 mcg-albuterol 100 1 puff inhalation R BIDPRN PRN sob 06/27/23 04/13/25 1 Week Ago History
mcg/actuation mist for inhalation ~11/06/24
(Combivent Respimat)
theophylline 200 mg 200 mg PO HS copd 06/27/23 04/13/25 12/22/24 History
capsule,extended release 24 hr
(Eugene-24)
tiotropium bromide 2.5 2 puff inhalation R HS copd 06/27/23 04/13/25 11/12/24 History
mcg/actuation mist for inhalation
(Spiriva Respimat)
valacyclovir 500 mg tablet 500 mg PO HS viral infection 06/27/23 04/13/25 12/22/24 History
cholecalciferol (vitamin D3) 25 25 mcg PO MOTUWETHFRSA Supplement 07/16/23 04/13/25 11/12/24 History
mcg (1,000 unit) tablet (Vitamin
D3)
spironolactone 25 mg tablet 25 mg PO MOWEFR PRN blood 07/16/23 04/13/25 2 Days Ago History
pressure-when she remembers ~11/11/24
albuterol sulfate 90 mcg/actuation 2 puff inhalation R Q4HPRN PRN sob 11/13/24 04/13/25 11/12/24 History
aerosol inhaler
ascorbic acid (vitamin C) 1,000 mg 1,000 mg PO MOTUWETHFRSA Supplement 11/13/24 04/13/25 11/12/24 History
tablet (Vitamin C)
cyanocobalamin (vitamin B-12) 50 20 mcg PO MOWEFR Supplement 11/13/24 04/13/25 12/21/24 History
mcg tablet
ensifentrine 3 mg/2.5 mL 2.5 ml inhalation R BID 11/13/24 04/13/25 12/23/24 History
suspension for nebulization Lung/Breathing Issues
(Ohtuvayre)
prednisone 5 mg tablet 5 mg PO BID rheumatoid arthritis 11/13/24 04/13/25 12/23/24 History
rimegepant 75 mg disintegrating 75 mg PO DAILYPRN PRN mirgraines 12/23/24 04/13/25 Unknown History
tablet (Nurtec ODT)
potassium chloride 10 mEq 10 meq PO MoWeFr@0800,1700 02/14/25 04/13/25 Unknown History
tablet,extended release Electrolyte Repletion
torsemide 10 mg tablet 10 mg PO MOWE fluid retention 03/24/25 04/13/25 Unknown Rx
#30 tabs
diltiazem HCl 30 mg tablet 30 mg PO HSPRN PRN blood pressure 04/13/25 04/13/25 Unknown History
diltiazem HCl 30 mg tablet 30 mg PO TID Blood Pressure 04/13/25 04/13/25 Unknown History
(Cardizem)
lidocaine 4 % topical patch 1 patch topical DAILYPRN PRN right 04/13/25 04/13/25 Unknown History
knee
sertraline 50 mg tablet 50 mg PO HS Mental Health/Anxiety 04/13/25 04/13/25 Unknown History
therapeutic multivitamin 1 tab PO MOWEFR Supplement 04/13/25 04/13/25 Unknown History
Review of Systems
-
History Source: Patient and Family
All other systems: Negative unless noted
Vitals / Labs / Diagnostic Testing
Vital Signs
Temp Pulse Resp BP Pulse Ox
98.4 F 98 20 96/62 95
04/13/25 13:01 04/13/25 13:00 04/13/25 13:00 04/13/25 13:00 04/13/25 13:00
Lab Data
04/13/25 04:27
04/13/25 04:27
Laboratory Results
04/13/25 04/13/25 04/13/25
04:30 09:40 10:12
pH 7.33 L Cancelled 7.38
pCO2 81 H* Cancelled 65 H
pO2 103 Cancelled 77 L
HCO3 42.7 H* Cancelled 38.5 H
O2 Delivery Level Cancelled Not Reportable
04/13/25
11:26
pH Cancelled
pCO2 Cancelled
pO2 Cancelled
HCO3 Cancelled
O2 Delivery Level Cancelled
Microbiology
04/13/25 09:05 Nasal Swab Influenza Types A & B (WARNER) - Final
Negative for Influenza A & B, NAAT
Negative results must be combined with clinical observations
and patient history.
Nucleic Acid Amplification test (NAAT)performed on the
[employer] platform.
Diagnostic Testing:
Physical Exam
-
HEENT: Normocephalic, Anicteric and Moist Mucous Membranes
Cardiovascular: S1/S2 and Regular Rhythm
Respiratory: Accessory Resp Muscle Use (mild-mod) and Other (poor air movement)
GI: Soft, Non Distended and Non Tender
Neurology: Awake, Alert and Oriented
Skin: Warm and Dry
General: Poor Appetite and Other (tachypneic, anxious appearing)
Assessment
-
74-year-old female with previous history of severe end-stage COPD, chronic hypoxemic and hypercarbic respiratory failure on BiPAP, presenting to ER with worsening shortness of breath. She had been using her BiPAP nightly, noticed progressive
shortness of breath in less than 16 hours after usage. Was previously admitted and discharged on 03/24/2025, 02/22/2025, 12/28/2024, 11/14/2024 for similar. Hospice was discussed on previous hospitalizations but patient was not ready. She was placed
on morphine at home which was discontinued. On arrival ABG obtained with pH 7.33, pCO2 81, bicarb 42 satting 99%. She is placed on continuous BiPAP. She is a DNR. Admitted to ICU for tenuous respiratory status.
Acute on chronic hypoxic and hypercarbic respiratory failure
End-stage COPD with recurrent admissions
Acute on chronic shortness of breath
Pulmonary cachexia
Conditions present prior admission:
Advanced COPD: 4 L nasal cannula, noninvasive mechanical ventilation-chronic hypoxemic and hypercapnic respiratory failure
Up until recently followed at [facility]- Dr. Shi, she was denied transplant
PFT 12/2024: FEV1 was 0.34 ml / 19% predicted.
Former smoker, 40 PYs
Rheumatoid arthritis
Chronic anemia
Hypertension
Anxiety
Osteoporosis
Atrial Fibrillation
Plan
Patient has baseline severe COPD, end stage, on maximal medical therapy as out patient
Outpatient COPD regimen includes: Low-dose theophylline, Azithromycin for anti-inflammatory properties, Brovana/budesonide nebulizers, Ipratropium/albuterol nebulizers as needed, Ohtuvayre and Spiriva. Also been on chronic low-dose prednisone
therapy (5 mg PO bid) and was started on noninvasive mechanical ventilation 12/2024
She has been seen by [facility] and declined transplant
She is maintained on 4 L nasal cannula chronically at baseline
I have reviewed all relevant prior records and recent admissions
Chest x-ray obtained indicating clear lungs
No pneumonia noted on imaging this admission.
No evidence of infection, would observe off antibiotics
Continue Duoneb scheduled along with Budesonide.
Placed on IV steroids, she is chronically on 5 mg twice daily
Last PFT indicating very severe lung function with 19% FEV1
She was placed on BiPAP at home, using it nightly and reports excellent compliance
Arrival ABG demonstrating pH 7.3, pCO2 81
This demonstrates clearly to me that she requires continuous BiPAP as she is unable to make it less than 16 hours post usage at night
She is placed on our machine with repeat ABG 7.
I discussed this with her daughter clearly, she may need continuous BiPAP with very infrequent breaks
N.p.o. for now, she was already cachectic and underweight
She is at great risk for aspiration
IV fluids
She is currently DNR and would not want to proceed with trach and PEG
But yet previous discussions regarding hospice, patient reports that she is not ready
I discussed this extensively in front of the patient and the daughter that her goals of care do not align and that she is lacking insight into her condition overall
She has demonstrated very poor quality of life with frequent hospitalizations
She meets all the criteria for end-stage COPD
It would be helpful if the family were to support her mentally to except her lung condition
They were agreeable to repeat hospice consult, this is placed
I am not sure that she has a meaningful path to be discharged home safely if she is on nightly BiPAP and is unable to control CO2 levels
This may mean that she requires continuous BiPAP
The daughter understands, she notes that she has difficult decision making at this time because her younger sister underwent trach and is having a surgery on 04/26
She wishes for her mother to be alive until then
I have implored the family to have meetings and to discuss her care
Await further decision making by family
Diagnostic Data
Chest X-Ray: 04/13/25- 1. Clear lungs. 2. No significant change compared to prior study.
CT Scan: CHEST 12/24/24- No evidence of central pulmonary embolism. Suspected changes of emphysema. Overall peripheral prominent size of pulmonary interstitial markings widespread bilaterally at least in part could be chronic. Acute interstitial
pneumonitis cannot be excluded. No focal parenchymal consolidation, pneumothorax or pleural effusion.
Echo: 11/14/24- Low normal LV systolic function with left ventricular ejection fraction estimated by Juarez's method 50% Normal left ventricular wall thickness Normal diastolic function. Normal atrial dimensions Aortic valve poorly visualized with
mildly thickened leaflets consistent with aortic sclerosis without stenosis. No significant aortic insufficiency. Trace mitral and tricuspid insufficiency Unable to estimate right heart pressures due to paucity of TR jet. No pericardial effusion
No prior study available for comparison
PFT's: 12/26/24- FEV1 was .034ml / 19% predicted. FVC was 1.67L / 73% predicted. Very severe obstruction.
Reports and relevant images were personally reviewed.
Critical Care time 76 mins -- The patient is admitted for acute critical illness for the treatment of vital organ failure and/or prevention of further life-threatening conditions. Total care includes time spent in review of history, physical exam,
medications, hemodynamic/ventilator parameters, laboratory data, imaging and discussion with house staff, pharmacy, respiratory therapy, paper cup handle machine operator, and nursing.
[2025-04-13] MEDS: LR 500 IV (14:22)
[2025-04-13 15:11] LABS: Ferritin 112.0 ng/ml (11.1-264.0)
--- NOTE | 2025-04-13 15:34 | WOUNDNOTE ---
LEFT ARM SKIN TEAR
--- NOTE | 2025-04-13 15:34 | WOUNDNOTE ---
[facility] RN NOTE: Reviewed chart and met with patient. Patient assessed with RNAarti. Patient known from previous admission for left arm skin tear. Skin tear appears to be healed but patient would like to continue with dressing for protection.
Patient has a stage 1 PI to her sacral/coccyx. Skin is non-blanchable red and there appears to be a newly healed stage 2 present. Heels blanchable and intact and adhesive foam applied by RNAarti. Patient turned on a right semi-side lying
position with heels off-loaded on pillows. Patient is on a [employer] FX Air. She has a low BMI of of 17. Patient has several comorbidities including end-stage COPD and BMI of 17. Wounds may worsen and new wounds may develop, even with optimal care.
--- NOTE | 2025-04-13 15:49 | CM ---
Hospice consult for eval and treat. Referral placed.
--- NOTE | 2025-04-13 15:55 | HOSPNOTE ---
Referral received will speak with daughter in the am. The daughter wants to make sure that all these medications that the patient is currently on will continue on hospice. There are some medications that will not be covered however family can pay
out of pocket which the daughter states is not an option. We had this conversation the last hospitalization and the patient and family did not wish for hospice services. I will discuss with daughter tomorrow. More information to follow.
--- NOTE | 2025-04-13 16:15 | PTCARENOTE ---
Sacral redness much improved. Patient appears to be resting comfortably when undisturbed. Denies pain. at bedside. VSS. No change in rest of physical assessment.
[2025-04-13] MEDS: LOVENOX 30 MG SC (17:09)
[2025-04-13] MEDS: DECADRON 4 MG IV ×2 (17:10→23:58)
--- NOTE | 2025-04-13 19:00 | PTCARENOTE ---
Report given verbally to oncoming shift, Kong GOOD. Bedside rounds complete. Questions answered.
[2025-04-13] MEDS: RESTASIS 0.05% OPHTHALMIC EMULSION 1 DROPS BOTH EYES (19:20)
--- NOTE | 2025-04-13 20:00 | PTCARENOTE ---
Assumed care of patient at 1900. Patient AAOx3, drowsy/anxious @ times - awakens to voice. SR/ST on the monitor w/ occasional PACs. Bilateral trace lower extremity edema. Weak pedal pulses bilaterally. Patient on BiPAP - 18/8 w/ 4L. Lungs diminished
w/ expiratory wheeze bilaterally. POX 90-96%. Patient tachypneic @ times/orthopneic. Patient w/ shortness of breath on exertion. +BS, poor appetite. Purewick in place. Multiple wounds throughout - see worklist. R wrist IV w/ LR infusing as ordered -
see JUL.
[2025-04-13] MEDS: PULMICORT 0.5 MG INH (20:06)
[2025-04-13] MEDS: ZOLOFT 50 MG PO (21:07)
[2025-04-14] VITALS (27 sets, daily range): BP systolic 92–135; BP diastolic 53–88; PULSE 2–103; BMI 17.7
[2025-04-14] MEDS: TYLENOL 650 MG PO ×2 (00:12→21:03)
--- NOTE | 2025-04-14 00:45 | PTCARENOTE ---
Systems reviewed. Patient continues w/ BiPAP. BiPAP shortly removed to provide oral care - patient reported mildly increased shortness of breath with BiPAP off. BiPAP placed back on patient after oral care completed.
[2025-04-14 03:50] LABS: Venous Blood Gas B.E. 11.3 mmol/L (-4 to +4); Venous Blood Gas O2 Sat % 100.0 %
[2025-04-14 03:50] LABS: Hematocrit 35.9 % (37.0-47.0); Hemoglobin 11.4 g/dL (12.0-16.0); Mean Corp Hgb Conc. 31.8 g/dL (33.0-37.0); Mean Corpuscular Volume 92.3 fL (81.0-99.0); Nucleated Red Blood Cells % 0 %; Platelet Count 164 10^3/uL (130-400); Red Cell Dist. Width 15.6 % (11.5-14.5)
[2025-04-14 04:02] LABS: INR 1.10; PT 14.0 Sec (11.4-14.6)
[2025-04-14 04:03] LABS: APTT 29.6 Sec (23.4-35.0)
[2025-04-14 04:24] LABS: Blood Urea Nitrogen 27 mg/dl (7-17); Calcium 9.4 mg/dl (8.4-10.2); Carbon Dioxide 37 mmol/L (22-30); Chloride 101 mmol/L (98-107); Estimated Creatinine Clearance 51 ml/min; Glucose 171 mg/dl (70-99); Magnesium 2.2 mg/dl (1.6-2.3); Potassium 4.5 mmol/L (3.5-5.1); Sodium 138 mmol/L (135-145); eGFR > 60.00
[2025-04-14 05:18] LABS: Hepatitis C Antibody Negative (Negative)
--- NOTE | 2025-04-14 06:14 | PTCARENOTE ---
Systems reviewed. Assessment unchanged.
[2025-04-14] MEDS: PULMICORT 0.5 MG INH ×2 (07:13→19:27)
[2025-04-14] MEDS: DUONEB 3 ML INH ×4 (07:13→19:27)
--- NOTE | 2025-04-14 07:34 | W.PN.INTV ---
Addendum entered and electronically signed by Grazyna Watkins DO 04/14/25 13:57:
Will not offer NIV as I think this is futile
Transfer to IMU, we will follow along
Original Note:
Today's Communication / Plan
Recommendations
Prolonged discussion with numerous family members, providers regarding GOC
This patient is end stage but the family is refusing to accept it
They wish to speak to Dr Guevara
This may need to involve ethics consult for futility
Assessment
-
74-year-old female with previous history of severe end-stage COPD, chronic hypoxemic and hypercarbic respiratory failure on BiPAP, presenting to ER with worsening shortness of breath. She had been using her BiPAP nightly, noticed progressive
shortness of breath in less than 16 hours after usage. Was previously admitted and discharged on 03/24/2025, 02/22/2025, 12/28/2024, 11/14/2024 for similar. Hospice was discussed on previous hospitalizations but patient was not ready. She was placed
on morphine at home which was discontinued. On arrival ABG obtained with pH 7.33, pCO2 81, bicarb 42 satting 99%. She is placed on continuous BiPAP. She is a DNR. Admitted to ICU for tenuous respiratory status.
Acute on chronic hypoxic and hypercarbic respiratory failure
End-stage COPD with recurrent admissions
Acute on chronic shortness of breath
Pulmonary cachexia
Conditions present prior admission:
Advanced COPD: 4 L nasal cannula, noninvasive mechanical ventilation-chronic hypoxemic and hypercapnic respiratory failure
Up until recently followed at [facility]- Dr. Shi, she was denied transplant
PFT 12/2024: FEV1 was 0.34 ml / 19% predicted.
Former smoker, 40 PYs
Rheumatoid arthritis
Chronic anemia
Hypertension
Anxiety
Osteoporosis
Atrial Fibrillation
Plan
Patient has baseline severe COPD, end stage, on maximal medical therapy as out patient
Outpatient COPD regimen includes: Low-dose theophylline, Azithromycin for anti-inflammatory properties, Brovana/budesonide nebulizers, Ipratropium/albuterol nebulizers as needed, Ohtuvayre and Spiriva. Also been on chronic low-dose prednisone
therapy (5 mg PO bid) and was started on noninvasive mechanical ventilation 12/2024
She has been seen by Darshan and declined transplant
She is maintained on 4 L nasal cannula chronically at baseline
I have reviewed all relevant prior records and recent admissions
Chest x-ray obtained indicating clear lungs
No pneumonia noted on imaging this admission.
No evidence of infection, would observe off antibiotics
Continue Duoneb scheduled along with Budesonide.
Placed on IV steroids, she is chronically on 5 mg twice daily
Last PFT indicating very severe lung function with 19% FEV1
I do not think her outpatient regiment is benefitting her at this point
She was placed on BiPAP at home, using it nightly and reports excellent compliance
Arrival ABG demonstrating pH 7.3, pCO2 81
This demonstrates clearly to me that she requires continuous BiPAP as she is unable to make it less than 16 hours post usage at night
She is placed on our machine with repeat ABG 7.38/65
I discussed this with her daughter clearly, she may need continuous BiPAP with very infrequent breaks
N.p.o. for now, she was already cachectic and underweight
She is at great risk for aspiration-- I discussed this repeatedly with her who seems to lack understanding of this, keeps asking if she can eat
IV fluids
Discussions
04/13/25: She is currently DNR and would not want to proceed with trach and PEG; But yet previous discussions regarding hospice, patient reports that she is not ready. I discussed this extensively in front of the patient and the daughter that her
goals of care do not align and that she is lacking insight into her condition overall. She has demonstrated very poor quality of life with frequent hospitalizations. She meets all the criteria for end-stage COPD. It would be helpful if the family
were to support her mentally to except her lung condition. They were agreeable to repeat hospice consult, this is placed
I am not sure that she has a meaningful path to be discharged home safely if she is on nightly BiPAP and is unable to control CO2 levels. This may mean that she requires continuous BiPAP. The daughter understands, she notes that she has difficult
decision making at this time because her younger sister underwent trach and is having a surgery on 04/26. She wishes for her mother to be alive until then. I have implored the family to have meetings and to discuss her care.
04/14- Family mtg today including Diamond, Dr Ferris, /patient/daughter via phone. Daughter is not ready to accept that her mother is dying or end stage, despite the fact that all the providers here are in agreement that this is her
prognosis. Patient has deferred her choice to her daughter. They wish to speak to Dr Guevara, we will notify him. This may need to involve ethics consult.
Diagnostic Data
Chest X-Ray: 04/13/25- 1. Clear lungs. 2. No significant change compared to prior study.
CT Scan: CHEST 12/24/24- No evidence of central pulmonary embolism. Suspected changes of emphysema. Overall peripheral prominent size of pulmonary interstitial markings widespread bilaterally at least in part could be chronic. Acute interstitial
pneumonitis cannot be excluded. No focal parenchymal consolidation, pneumothorax or pleural effusion.
Echo: 11/14/24- Low normal LV systolic function with left ventricular ejection fraction estimated by Juarez's method 50% Normal left ventricular wall thickness Normal diastolic function. Normal atrial dimensions Aortic valve poorly visualized with
mildly thickened leaflets consistent with aortic sclerosis without stenosis. No significant aortic insufficiency. Trace mitral and tricuspid insufficiency Unable to estimate right heart pressures due to paucity of TR jet. No pericardial effusion
No prior study available for comparison
PFT's: 12/26/24- FEV1 was .034ml / 19% predicted. FVC was 1.67L / 73% predicted. Very severe obstruction.
Reports and relevant images were personally reviewed.
Critical Care time 75 mins -- The patient is admitted for acute critical illness for the treatment of vital organ failure and/or prevention of further life-threatening conditions. Total care includes time spent in review of history, physical exam,
medications, hemodynamic/ventilator parameters, laboratory data, imaging and discussion with house staff, pharmacy, respiratory therapy, instructional specialist, and nursing.
Subjective Dataa
Subjective Data
Date of Service:
Date of Service: April 14, 2025
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
Subjective:
Remains on continuous bipap, unable to take breaks for longer than 15 mins
Very little to no PO intake
at bedside
Objective Data
Data Reviewed
Vital Signs / I&O / Oxygen:
Vital Signs
Temp Pulse Resp BP Pulse Ox
98.0 F 83 15 99/64 97
04/14/25 00:09 04/14/25 07:14 04/14/25 07:14 04/14/25 06:00 04/14/25 07:14
Intake and Output
04/13/25 04/14/25 04/15/25
06:59 06:59 06:59
Intake Total 280 / 280
Output Total 250 / 250
Balance 30 / 30
SaO2 97
Nasal Cannula flow liters per 4
minute
Physical Exam
General: Poor Appetite and Other (chronically ill appearing, cachectic)
HEENT: Normocephalic, Anicteric and Moist Mucous Membranes
Cardiovascular: S1-S2 and Regular Rhythm
Respiratory: Accessory Resp Muscle Use (mild) and Other (decreased BS BL, WOB noted, on BIPAP)
GI: Soft, Non Distended and Non Tender
Neurology: Awake, Alert, Oriented and No Motor Deficits
Skin: Warm, Dry and Good Color
Labs/Micro/Reports
Lab Data
04/14/25 03:39
04/14/25 03:38
Laboratory Results
04/13/25 04/13/25 04/13/25
09:40 10:12 11:26
PT
INR
APTT
pH Cancelled 7.38 Cancelled
pCO2 Cancelled 65 H Cancelled
pO2 Cancelled 77 L Cancelled
HCO3 Cancelled 38.5 H Cancelled
O2 Delivery Level Cancelled Not Reportable Cancelled
04/14/25
03:38
PT 14.0
INR 1.10
APTT 29.6
pH
pCO2
pO2
HCO3
O2 Delivery Level
Microbiology
04/13/25 09:05 Nasal Swab Influenza Types A & B (WARNER) - Final
Negative for Influenza A & B, NAAT
Negative results must be combined with clinical observations
and patient history.
Nucleic Acid Amplification test (NAAT)performed on the
[employer] platform.
[2025-04-14] MEDS: VITAMIN B-12 50 MCG PO (07:37)
[2025-04-14] MEDS: THERAGRAN 1 TABLET PO (07:37)
[2025-04-14] MEDS: RESTASIS 0.05% OPHTHALMIC EMULSION 1 DROPS BOTH EYES ×2 (07:37→21:02)
[2025-04-14] MEDS: DECADRON 4 MG IV ×2 (07:37→16:39)
--- NOTE | 2025-04-14 07:40 | W.PN.HOSP.TC ---
Addendum entered and electronically signed by Luci Ferris MD 04/14/25 16:52:
I saw and evaluated the patient independently. I reviewed and discussed the resident�s note and agree with findings and plan as documented in the resident�s note.
GENERAL: well developed, well nourished, female remains on BiPAP
HEENT: NC/AT--on BiPAP with accessory muscle use and dyssynchronous breathing pattern
HEART: regular rate and rhythm, +S1, +S2, tachycardic
LUNGS : no air movement at all appreciated--no wheezing
ABDOM: soft, nontender, nondistended, + bowel sounds
EXT: no cyanosis, clubbing, or edema
NEUROLOGIC: grossly intact
Acute on chronic hypoxemic/hypercarbic respiratory failure due to severe COPD exacerbation-- progressive and end stage--pt with chronic hypoxemia with O2 dependency at home with reduced FEV1 to 19%--pt DOES NOT want intubation or CPR BUT DOES want
as much treatment as we can provide short of that--apprec mathematics academic chair--decadron 4 mg IV Q8H (no wheezing noted at all, in fact poor air movement throughout), nebs, pulmicort, follow ABGs--BiPAP support 01/12--small dose morphine as need for air
hunger but pt refuses to take it--cont home zithromax, no need for other antibiotics--COVID/FLU negative--goal O2 sats 88-92%
Leukocytosis with left shift--CXR without infiltrates--hold on further ABX --cont zithromax
paroxysmal atrial fibrillation--sinus rhythm, tachycardic, cont diltiazem
nonischemic myocardial injury troponin elevation
History of anxiety and depression--Continue sertraline
History of iron deficiency anemia required infusions--check iron studies
Had family meeting with patient, at bedside, daughter Paul by phone, case management, hospice executive director, patient's primary ICU nurse, and resident team to discuss end-stage COPD. Patient is not tolerating BiPAP being off even for 15 to 20
minutes before she asks to go back on it. Patient is clearly BiPAP dependent 24/7 and likely not able to come off the BiPAP at all. Hospice was again discussed, patient wants to defer decision making to her daughter. Daughter is not amenable to
hospice at all. In fact, she wishes for Dr. Guevara to weigh in on the patient's prognosis as she was just in his office on Thursday, April 10, 2025. Patient however, did ask, 'How much time do I have left?'. I explained that off BiPAP likely
hours to days and with BiPAP, days to weeks.
We reached out to Dr. Guevara on behalf of the family. He was unable to meet with them per his conversation because of his patient load in the office but texted me the following statement, ' I spoke to them in office Thursday. Said not much more we
can offer. Told Dupixent would not be a game changer. Discussed hospice. Patient still wanted to try it did not want hospice yet. Very difficult situation. I am booked. Seeing patients. I communicated with Dr. Garcia.'
Patient's insisted that last admission she was able to come home and he feels that this should be happening again this admission despite my repeated insistence that this will not happen. I told him to look at his in the bed with the
BiPAP on, and told him that this is what it will be like at home if she gets to go home. She is too unstable to come off BiPAP at all at this time. Again reiterated that hospice is the most appropriate final decision here.
Patient's daughter is not accepting of this and insisted that she will not make any decisions until she speaks with Dr. Guevara.
code status--DNR
DVT proph--Lovenox
Total Critical Care Time 60 minutes. I was immediately available to the patient and staff. I personally examined, reviewed labs, diagnostic images/reports, interpretations, treatment plans, discussed patient care with other providers and family
or caregivers (if patient is unable to make decisions), entered orders as appropriate and documented the medical record.
Original Note:
Today's Communication/Plan
-
continue with BiPAP continuously
wean o2 as able
c/w inhalers, nebulizers, IV steroids
will continue to discuss GOC with pt and family
Assessment / Plan
Assessment / Plan
Yvonne is a 74-year-old female with severe end-stage COPD, chronic hypercapnic respiratory failure, rheumatoid arthritis, paroxysmal atrial fibrillation, lymphedema presented to the ED with significant shortness of breath after being off BiPAP
for less than 16 hours while at home. Patient has had 4 hospitalizations for COPD exacerbations within the last 5 months.
##Acute on chronic severe COPD exacerbation
##End-Stage COPD
# Pulmonary cachexia
# 40+ year tobacco use history
Use of accessory muscles, unable to speak in full sentences, tachycardic, tachypnea. needing BiPAP during night and afternoons naps while at home.
- Admit to the ICU; remains in IMCU due to tenuous respiratory status
- Hold home dose oral prednisone; c/w IV Decadron 4 mg Q8
- Continue with home regimen of theophylline, azithromycin, Brovana/budesonide nebs, ipratropium albuterol nebulizers as needed, phosphodiesterase inhibitor, Spiriva
- continue morphine 0.5 mg IV as needed to help with air hunger
- Continue home dose of azithromycin 250 mg MWF
- infectious workup negative
-Patient is currently maxed out on symptomatic therapy, seen by multiple pulmonology specialists and declined lung transplant
- now needing BiPAP continuously, significantly short of breath and symptomatic when off for a few minutes and arterial blood gas demonstrate patient requires continuous BiPAP to maintain baseline pH
Family meeting held today 04/14/2025 with Diamond Suero hospice nurse, ICU nurse, patient, patient's , and patient's daughter via phone. It was explained in multiple ways and multiple times that given the patient's comorbidities,
maxed out therapy with rapidly waning symptomatic relief, multiple exacerbations in recent months requiring hospitalizations, now continuous need of BiPAP, and overall clinical picture, that her condition is terminal and that there is no more that
we can do for her. It was explained that for these reasons, hospice would be most appropriate. Patient deferred ultimate decision to her daughter. Daughter, after asking for multiple clinical data and lab values which all pointed to declining
functional status and end-stage COPD, declined to accept prognosis or pursue hospice care at this time. Daughter was insistent that no decision would be made until she could speak with either Dr. Aguila in person/over the phone, as well as with
other produce production team member Dr. Betancourt, despite the fact that all specialists, hospitalists, and nursing staff are in agreement that hospice is appropriate for the patient. At this time we are continuing all of the patient's medication with intention to
treat pending continuing discussions regarding hospice care.
#Acute on chronic hypercapnic/hypoxemic respiratory failure
- Chronic bipap and O2 use at home
- Now on continuous BiPAP
- Continue oxygen around the clock , goal spo2 88-92 %
#Nonischemic Troponin Elevation
Most likely secondary to persistent tachycardia due to poor oxygenation as a consequence of end-stage COPD
- elevated troponin 0.038 w/o signs of ischemia on ECG
- will continue to trend
#Leukocytosis
Most likely iatrogenic as pt on chronic home prednisone for RA
- White count 12,300, mild left shift. Afebrile
- Increase productive cough in the past 2 days
- Chest x-ray is unremarkable
- COVID and flu negative
#Paroxysmal atrial fibrillation
- on tele; tachycardic with irregular rhythm but no formal afib
- not on ac at this time
- Continue diltiazem
#Anxiety and depression
- Continue sertraline
#History of iron deficiency anemia
- History of iron infusions.
- TIBC wnl, Iron wnl, Ferritin wnl
DVT prophylaxis: Lovenox subcu
CODE STATUS: DNR
Anticipated Discharge: 24 - 48 hours
Subjective/Interval History
-
Date of Service: April 14, 2025
Pt reports significant shortness of breath and discomfort with even slight movement in the bed or repositioning. She required BiPAP all night and was needing it again this morning. She has been tachycardic throughout the night, as well as
tachypneic. Her short term prognosis remains poor.
Objective Data
-
Labs:
Laboratory Results
04/14/25 04/14/25
03:38 03:39
WBC 5.5
Hgb 11.4 L
Hct 35.9 L
Plt Count 164
PT 14.0
INR 1.10
APTT 29.6
Sodium 138
Potassium 4.5
Chloride 101
Carbon Dioxide 37 H
BUN 27 H
Creatinine 0.5 L
Glucose 171 H
Calcium 9.4
Vital Signs:
Vital Signs
Temp Pulse Resp BP Pulse Ox
98.0 F 83 15 99/64 97
04/14/25 00:09 04/14/25 07:14 04/14/25 07:14 04/14/25 06:00 04/14/25 07:14
I&O
04/13/25 04/14/25 04/15/25
06:59 06:59 06:59
Intake Total 280 / 280
Output Total 250 / 250
Balance 30 / 30
Review of Systems
-
History Source: Patient
All other systems: Reviewed and negative
EENT: Reports No Symptoms Reported
Respiratory: Reports Trouble Breathing; Denies Cough, Hemoptysis, Wheezing or Pleurisy
Cardiac: Reports No Symptoms
Abdomen/GI: Reports No Symptoms
Breast: Reports No Symptoms
Genitourinary: Reports No Symptoms
Musculoskeletal: Reports No Symptoms
Skin: Reports No Symptoms
Neuro: Reports Lightheadedness
Endocrine: Reports No Symptoms
Physical Exam
-
General: Respiratory Distress, Appears Chronically Ill and Cachectic (Pulmonary cachexia)
HEENT: Normocephalic, Atraumatic, Moist Mucous Membranes, [place] Conjunctivae, No Ptosis, Nose Appears Normal, Ears Appear Normal and Oxygen (6 L nasal cannula)
Respiratory: Accessory Resp Muscle Use and Other (Breath sounds nearly absent in all lung [place] except for anterior apex, and even there air movement is poor. Significant shortness of breath during conversation. Coughing and audible upper airway
stridor during deep breaths with auscultation.); Negative Non Labored Respirations
Cardiac: Irregular Rhythm and Tachycardic; Negative Murmur
Breast: Deferred by me
GI: Soft, Nontender, Nondistended and Normal Bowel Sounds
Rectal: Deferred by Provider
Genito-urinary: Deferred by me
Musculoskeletal: No Clubbing, No Cyanosis and No Edema
Skin: Warm, Dry, IV Access / Catheter Site and Other (Overall redness to the skin, hemosiderin staining in bilateral lower extremities.)
Neuro: AO x 3 and Nonfocal/Grossly Intact
[2025-04-14] MEDS: KCL 10 MEQ PO (08:00)
[2025-04-14] MEDS: VITAMIN C 1000 MG PO (08:01)
[2025-04-14] MEDS: VITAMIN D3 (cholecalciferol) 25 MCG PO (08:01)
--- NOTE | 2025-04-14 08:50 | PTCARENOTE ---
report received,assessments per work list. patient off bipap to take medications and drink her ensure. dyspneic with slightest exertion. @bedside. call colon in reach. RT placed patient back on Bipap after brief respite this am
[2025-04-14 11:46] LABS: Glucose - Point of Care 240 mg/dl (70-99)
[2025-04-14] MEDS: NOVOLOG FLEXPEN-MODERATE RESISTANCE 3 UNITS SC (11:55)
[2025-04-14] MEDS: LIDOCAINE 4% PATCH 1 PATCH TOPICAL (12:15)
--- NOTE | 2025-04-14 12:46 | PTCARENOTE ---
patient reassessed. oob to bedside commode with PT/OT. remained on Bipap for transfer. increased dyspnea, relieved with rest. RT to place on nasal cannula for short period for oral fluids per patient request. call colon in reach
--- NOTE | 2025-04-14 13:04 | HOSPNOTE ---
Met with patient and spouse and daughter was on the phone. Attending clearly stated that the patient is end stage lung disease and needs hospice care. One hour discussion and the family is in denial and feels patient will get better. I tried to
explain hospice inpatient since I feel patient will not be able to be managed in a home setting. Per the daughter does not wish for comfort measures of any kind. I will continue to follow.
--- NOTE | 2025-04-14 13:46 | W.PN.UPDATE ---
Update Note
Progress Note Update
Dr. Guevara called initially referred to daughter to discuss the situation-daughter's #[phone]
Reviewed her current clinical situation.
According to the daughter, the patient still wants to try to stay alive until her other daughters has I believe tracheal revision surgery at [facility] On 04/26/25.
She asked me if the patient was now 24/7, BiPAP dependent-I explained that for at least the next 24-48 hours she is BiPAP dependent and subsequently brief episodes of liberation for 1-2 hours may be feasible.
Ideally they want to take her home to .
They are considering hospice, however, once again, they want her alive until the other daughters surgery.
She also has living will, power of assistant district attorney, etc. paperwork that she needs signed and was requesting if polishing machine operator to come with the paperwork for her to sign-I stated that patient could signs as long as she was alert and oriented..
Updated hospitalist, resident, and chocolate packer
--- NOTE | 2025-04-14 14:45 | PTCARENOTE ---
Addendum entered by Anne Marie Jackson RN 04/14/25 15:40:
total off bipap time 25 minutes
Original Note:
labs sent. assisted back to bed. bipap per RT documentation. taking sips of clear liquids
[2025-04-14 15:14] LABS: Troponin I 0.018 ng/ml
[2025-04-14] MEDS: LOVENOX 30 MG SC (16:41)
--- NOTE | 2025-04-14 17:15 | W.PN.UPDATE ---
Update Note
Progress Note Update
Update:
I reviewed options with [facility] regarding hospice coverage and medications. The daughter has concerns regarding continuing her home medications as this is important to the patient to continue. I had a very prolonged conversation with the daughter
and at bedside regarding options for inpatient hospice versus comfort measure. There is an issue with coverage regarding inpatient hospice with some of the medications that she is taking at home. However, I do think that moving forward
with comfort measures while inpatient does align with her current wishes which includes no further escalation of care, liberalizing her ability to eat, taking more frequent breaks off BiPAP. I do still feel she is not a candidate for home hospice
or to be safely discharged home requiring this much BiPAP, which I reiterated to the family. I also have concerns that she is not being cared for at home to the degree that she needs to given her inpatient needs. The daughter also agrees.
I explained that as long as all of the family members are on the same page as comfort measures which would not escalate her care including labs, NIV etc. They NEED to have the understanding that if she were to clinically deteriorate we would
prioritize pain medications. Her found this the most difficult to accept as I do not think that he accepts generally that she is dying. She did express to him that using the BiPAP continuously does make her feel miserable. The patient
found that this WAS in line with what she would want and they feel that they may move forward with this pending a call to the insurance company by her daughter to confirm coverage. We did discuss the criteria for inpatient hospice as well so that
she may discuss this with the insurance before she makes her decision.
She will let us know if she formally would like to be made comfort.
LEONORAN was present for this conversation and contributed as well. I think the family received this well.
[2025-04-14] MEDS: NOVOLOG FLEXPEN-MODERATE RESISTANCE SC (17:21)
[2025-04-14 17:31] LABS: Glucose - Point of Care 134 mg/dl (70-99)
--- NOTE | 2025-04-14 17:57 | CM ---
Participating with family meeting in ICU this am. Patient currently on BIPAP consistently and physician discussed Goals of care in meeting. CM will follow for discharge planning needs.
Plan; TBD pending medical treatment plan
--- NOTE | 2025-04-14 20:02 | PTCARENOTE ---
Pt is Aox3, VSS, NSR/ST with PAC on monitor, c/o chronic right knee pain /, denies medication at this time. Patient does have LidoPatch currently on knee. Remains on BIPAP 18/8 4L, tachypneic at rest with expiatory wheezes. Plan is to do oral
medications at 2100 and break from BIPAP, Pt agreed. Heel foams on B/L heels, left arm wrapped with LETY bandage, foam on sacrum. Daughter at bedside.
[2025-04-14] MEDS: ZITHROMAX 250 MG PO (21:02)
[2025-04-14] MEDS: VALTREX 500 MG PO (21:04)
[2025-04-14] MEDS: ZOLOFT 50 MG PO (21:04)
[2025-04-14 22:22] LABS: Glucose - Point of Care 218 mg/dl (70-99)
[2025-04-14] MEDS: NOVOLOG FLEXPEN 3 UNITS SC (22:39)
[2025-04-15] VITALS (17 sets, daily range): BP systolic 90–131; BP diastolic 59–82; PULSE 2–98; BMI 17.7
[2025-04-15] MEDS: DECADRON 4 MG IV ×4 (00:13→23:21)
[2025-04-15 05:16] LABS: Hematocrit 35.3 % (37.0-47.0); Hemoglobin 11.3 g/dL (12.0-16.0); Mean Corp Hgb Conc. 32.0 g/dL (33.0-37.0); Mean Corpuscular Volume 90.7 fL (81.0-99.0); Platelet Count 194 10^3/uL (130-400); Red Cell Dist. Width 15.7 % (11.5-14.5)
[2025-04-15 05:53] LABS: ALT (SGPT) 22 U/L (0-35); AST (SGOT) 24 U/L (14-36); Albumin 3.4 g/dl (3.5-5.0); Alkaline Phosphatase 99 U/L (38-126); Blood Urea Nitrogen 25 mg/dl (7-17); Calcium 9.2 mg/dl (8.4-10.2); Carbon Dioxide 37 mmol/L (22-30); Chloride 101 mmol/L (98-107); Estimated Creatinine Clearance 52 ml/min; Glucose 137 mg/dl (70-99); Potassium 4.6 mmol/L (3.5-5.1); Sodium 136 mmol/L (135-145); Total Protein 5.5 g/dl (6.3-8.2); eGFR > 60.00
[2025-04-15] MEDS: PULMICORT 0.5 MG INH ×2 (07:18→20:24)
[2025-04-15] MEDS: DUONEB 3 ML INH ×4 (07:19→20:24)
--- NOTE | 2025-04-15 07:39 | W.PN.PUL3 ---
Today's Communication / Plan
-
Comfort measures recommended, patient and daughter agree but would like to confirm with CM
Continue care as is
Await formal decision making today
Care team aware to follow
Assessment
-
74-year-old female with previous history of severe end-stage COPD, chronic hypoxemic and hypercarbic respiratory failure on BiPAP, presenting to ER with worsening shortness of breath. She had been using her BiPAP nightly, noticed progressive
shortness of breath in less than 16 hours after usage. Was previously admitted and discharged on 03/24/2025, 02/22/2025, 12/28/2024, 11/14/2024 for similar. Hospice was discussed on previous hospitalizations but patient was not ready. She was placed
on morphine at home which was discontinued. On arrival ABG obtained with pH 7.33, pCO2 81, bicarb 42 satting 99%. She is placed on continuous BiPAP. She is a DNR. Admitted to ICU for tenuous respiratory status.
Acute on chronic hypoxic and hypercarbic respiratory failure
End-stage COPD with recurrent admissions
Acute on chronic shortness of breath
Pulmonary cachexia
Conditions present prior admission:
Advanced COPD: 4 L nasal cannula, noninvasive mechanical ventilation-chronic hypoxemic and hypercapnic respiratory failure
Up until recently followed at [facility]- Dr. Shi, she was denied transplant
PFT 12/2024: FEV1 was 0.34 ml / 19% predicted.
Former smoker, 40 PYs
Rheumatoid arthritis
Chronic anemia
Hypertension
Anxiety
Osteoporosis
Atrial Fibrillation
Plan
Patient has baseline severe COPD, end stage, on maximal medical therapy as out patient
Outpatient COPD regimen includes: Low-dose theophylline, Azithromycin for anti-inflammatory properties, Brovana/budesonide nebulizers, Ipratropium/albuterol nebulizers as needed, Ohtuvayre and Spiriva. Also been on chronic low-dose prednisone
therapy (5 mg PO bid) and was started on noninvasive mechanical ventilation 12/2024
She has been seen by [facility] and declined transplant
She is maintained on 4 L nasal cannula chronically at baseline
I have reviewed all relevant prior records and recent admissions
Chest x-ray obtained indicating clear lungs
No pneumonia noted on imaging this admission.
No evidence of infection, would observe off antibiotics
Continue Duoneb scheduled along with Budesonide.
Placed on IV steroids, she is chronically on 5 mg twice daily
Last PFT indicating very severe lung function with 19% FEV1
I do not think her outpatient regiment is benefitting her at this point but they would like to continue
She was placed on BiPAP at home, using it nightly and reports excellent compliance
Arrival ABG demonstrating pH 7.3, pCO2 81
This demonstrates clearly to me that she requires continuous BiPAP as she is unable to make it less than 16 hours post usage at night
She is placed on our machine with repeat ABG 7.38/65
I discussed this with her daughter clearly, she may need continuous BiPAP with very infrequent breaks
N.p.o. for now, she was already cachectic and underweight
She is at great risk for aspiration-- I discussed this repeatedly with her who seems to lack understanding of this, keeps asking if she can eat
IV fluids
Family is deciding on comfort measures, will review with CM/primary team
Await decision making
Discussions
04/13/25: She is currently DNR and would not want to proceed with trach and PEG; But yet previous discussions regarding hospice, patient reports that she is not ready. I discussed this extensively in front of the patient and the daughter that her
goals of care do not align and that she is lacking insight into her condition overall. She has demonstrated very poor quality of life with frequent hospitalizations. She meets all the criteria for end-stage COPD. It would be helpful if the family
were to support her mentally to except her lung condition. They were agreeable to repeat hospice consult, this is placed
I am not sure that she has a meaningful path to be discharged home safely if she is on nightly BiPAP and is unable to control CO2 levels. This may mean that she requires continuous BiPAP. The daughter understands, she notes that she has difficult
decision making at this time because her younger sister underwent trach and is having a surgery on 04/26. She wishes for her mother to be alive until then. I have implored the family to have meetings and to discuss her care.
04/14- Family mtg today including Diamond, Dr Ferris, /patient/daughter via phone. Daughter is not ready to accept that her mother is dying or end stage, despite the fact that all the providers here are in agreement that this is her
prognosis. Patient has deferred her choice to her daughter. They wish to speak to Dr Guevara, we will notify him. This may need to involve ethics consult.
Diagnostic Data
Chest X-Ray: 04/13/25- 1. Clear lungs. 2. No significant change compared to prior study.
CT Scan: CHEST 12/24/24- No evidence of central pulmonary embolism. Suspected changes of emphysema. Overall peripheral prominent size of pulmonary interstitial markings widespread bilaterally at least in part could be chronic. Acute interstitial
pneumonitis cannot be excluded. No focal parenchymal consolidation, pneumothorax or pleural effusion.
Echo: 11/14/24- Low normal LV systolic function with left ventricular ejection fraction estimated by Juarez's method 50% Normal left ventricular wall thickness Normal diastolic function. Normal atrial dimensions Aortic valve poorly visualized with
mildly thickened leaflets consistent with aortic sclerosis without stenosis. No significant aortic insufficiency. Trace mitral and tricuspid insufficiency Unable to estimate right heart pressures due to paucity of TR jet. No pericardial effusion
No prior study available for comparison
PFT's: 12/26/24- FEV1 was .034ml / 19% predicted. FVC was 1.67L / 73% predicted. Very severe obstruction.
Reports and relevant images were personally reviewed.
Total time spent on this consultation/encounter __55__ minutes which includes review of history, physical exam, medications, laboratory data, personal review of imaging, extensive review of outpatient records, discussion with care team and
respiratory therapy.
Subjective Data
-
Date of Service:
Date of Service: April 15, 2025
Chief Complaint: Pulmonary Follow Up
Subjective:
No new events, sitting in chair off BIPAP
Daughter and patient are leaning towards comfort care
Objective Data
Data Reviewed
Vital Signs / I&O / Oxygen:
Vital Signs
Temp Pulse Resp BP Pulse Ox
97.8 F 72 19 92/59 99
04/15/25 06:00 04/15/25 07:22 04/15/25 07:22 04/15/25 04:00 04/15/25 07:22
Intake and Output
04/14/25 04/15/25 04/16/25
06:59 06:59 06:59
Intake Total 280 / 280 1200 / 1200
Output Total 250 / 250 600 / 600
Balance 30 / 30 600 / 600
SaO2 99
Nasal Cannula flow liters per 4
minute
Physical Exam
General: Comfortable and Other (NAD)
HEENT: Normocephalic, Anicteric and Moist Mucous Membranes
Cardiovascular: S1-S2 and Regular Rhythm
Respiratory: Clear (decreased BS BL) and Non-Labored Respirations
GI: Soft, Non Distended and Non Tender
Neurology: Awake, Alert, Oriented and No Motor Deficits
Skin: Warm, Dry and Good Color
Labs/Micro/Reports
Lab Data
04/15/25 04:39
04/15/25 04:39
Microbiology
04/13/25 09:05 Nasal Swab Influenza Types A & B (WARNER) - Final
Negative for Influenza A & B, NAAT
Negative results must be combined with clinical observations
and patient history.
Nucleic Acid Amplification test (NAAT)performed on the
[employer] platform.
[2025-04-15] MEDS: LIDOCAINE 4% PATCH 1 PATCH TOPICAL (08:03)
[2025-04-15] MEDS: RESTASIS 0.05% OPHTHALMIC EMULSION 1 DROPS BOTH EYES ×2 (08:04→22:12)
[2025-04-15] MEDS: VITAMIN C 1000 MG PO (08:04)
[2025-04-15] MEDS: VITAMIN D3 (cholecalciferol) 25 MCG PO (08:04)
[2025-04-15 08:12] LABS: Glucose - Point of Care 132 mg/dl (70-99)
[2025-04-15] MEDS: NOVOLOG FLEXPEN-MODERATE RESISTANCE SC (08:17)
--- NOTE | 2025-04-15 08:47 | PTCARENOTE ---
report received, assessments per work list. patient assisted out of bed to bedside commode then chair. taken off Bipap and placed on nasal cannula by RT
[2025-04-15] MEDS: NOVOLOG FLEXPEN-MODERATE RESISTANCE 1 UNITS SC ×2 (11:52→16:25)
[2025-04-15 12:02] LABS: Glucose - Point of Care 162 mg/dl (70-99)
--- NOTE | 2025-04-15 13:08 | PTCARENOTE ---
no changes in assessments. oob to chair, placed on NC by RT for respite and po intake of supplement
--- NOTE | 2025-04-15 16:01 | W.PN.HOSP.TC ---
Addendum entered and electronically signed by Luci Ferris MD 04/15/25 17:29:
I saw and evaluated the patient independently. I reviewed and discussed the resident�s note and agree with findings and plan as documented in the resident�s note.
GENERAL: well developed, well nourished, female remains on BiPAP
HEENT: NC/AT--on BiPAP
HEART: regular rate and rhythm, +S1, +S2, tachycardic
LUNGS : no air movement at all appreciated--no wheezing
ABDOM: soft, nontender, nondistended, + bowel sounds
EXT: no cyanosis, clubbing, or edema
NEUROLOGIC: grossly intact
Acute on chronic hypoxemic/hypercarbic respiratory failure due to severe COPD exacerbation-- progressive and end stage--pt with chronic hypoxemia with O2 dependency at home with reduced FEV1 to 19%--pt DOES NOT want intubation or CPR BUT DOES want
as much treatment as we can provide short of that--apprec car tracer--decadron 4 mg IV Q8H (no wheezing noted at all, in fact poor air movement throughout), nebs, pulmicort, follow ABGs--BiPAP support 01/12--small dose morphine as need for air
hunger but pt refuses to take it--cont home zithromax, no need for other antibiotics--COVID/FLU negative--goal O2 sats 88-92%--had extensive discussion with pt/, , daughter, CM (see detail below)
Leukocytosis with left shift--CXR without infiltrates--hold on further ABX --cont zithromax
paroxysmal atrial fibrillation--sinus rhythm, tachycardic, cont diltiazem
nonischemic myocardial injury troponin elevation
History of anxiety and depression--Continue sertraline
History of iron deficiency anemia required infusions--check iron studies
Asked to come back and have family meeting with patient, daughter, , case management. Daughter relayed conversation that she had with Dr. Watkins regarding full treatment, comfort, hospice. I agreed with her relaying of the information and
expanded on that stating that the difference between the 3 of them is how much control the patient has versus how much control the physician staff has. I explained that if the patient wants full treatment, then the medical team is in control and we
will be doing everything to get her as better as we can. In comfort, she has more control and can decide how much BiPAP and when she wants to wear it or not wear it, she can eat a little bit more, we would not do lab draws, blood gases, and stop
all nonessential medications. In hospice, she has the most control and can eat and drink what ever she wants, where or not wear BiPAP is much or as little as she wants, can have medications for comfort if she so chooses.
After much discussion, the decision/plan is the following...
1.) Continue active treatment currently with the intent of having the patient's daughter (who is scheduled for trach revision surgery April 26) come to the hospital to visit either Thursday, Thursday, or Thursday pending arrangements to be made.
2.) After patient meets with her daughter, she will then likely change to comfort measures and wait until April 26 (her daughter's surgery), provided she does well enough on comfort to last that long.
3.) After that, then likely inpatient hospice here.
Explained that our hospice is very strict when it comes to hospice diagnoses and treatments regarding that diagnosis (I.E.BiPAP, nebs, oxygen, etc.) and that those treatments will not be offered but morphine as needed with eventual transition to
morphine drip if needed would be the proper course.
Explained that home hospice is likely not feasible, however, should she make it home, she could wear her BiPAP for 'comfort'. Should she go to a facility, the same can be said but she would need to have a different hospice agency other than
[facility] hospice either at home or in a facility.
code status--DNR
DVT proph--Lovenox
Total Critical Care Time 60 minutes. I was immediately available to the patient and staff. I personally examined, reviewed labs, diagnostic images/reports, interpretations, treatment plans, discussed patient care with other providers and family
or caregivers (if patient is unable to make decisions), entered orders as appropriate and documented the medical record.
Original Note:
Today's Communication/Plan
-
Continue with BiPAP
Goals of care discussion are evolving, however family seems to be leaning towards comfort care
Assessment / Plan
Assessment / Plan
Yvonne is a 74-year-old female with severe end-stage COPD, chronic hypercapnic respiratory failure, rheumatoid arthritis, paroxysmal atrial fibrillation, lymphedema presented to the ED with significant shortness of breath after being off BiPAP
for less than 16 hours while at home. Patient has had 4 hospitalizations for COPD exacerbations within the last 5 months.
##Acute on chronic severe COPD exacerbation
##End-Stage COPD
# Pulmonary cachexia
# 40+ year tobacco use history
Use of accessory muscles, unable to speak in full sentences, tachycardic, tachypnea. needing BiPAP during night and afternoons naps while at home.
- Admit to the ICU; remains in IMCU due to tenuous respiratory status
- Hold home dose oral prednisone; c/w IV Decadron 4 mg Q8
- Continue with home regimen of theophylline, azithromycin, Brovana/budesonide nebs, ipratropium albuterol nebulizers as needed, phosphodiesterase inhibitor, Spiriva
- continue morphine 0.5 mg IV as needed to help with air hunger
- Continue home dose of azithromycin 250 mg MW
- infectious workup negative
-Patient is currently maxed out on symptomatic therapy, seen by multiple pulmonology specialists and declined lung transplant
- now needing BiPAP continuously, significantly short of breath and symptomatic when off for a few minutes and arterial blood gas demonstrate patient requires continuous BiPAP to maintain baseline pH
Follow-up family meeting on 04/14 and 04/15 � daughter and patient agreeable to comfort care measures whilst inpatient, preferring to maintain certain pulmonary/nebulizer treatments as well as BiPAP for comfort while also refraining from unnecessary
testing and medication administration. Discussions regarding the specifics of goals of care are ongoing with family and care team.
#Acute on chronic hypercapnic/hypoxemic respiratory failure
- Chronic bipap and O2 use at home
- Now on continuous BiPAP
- Continue oxygen with goal spo2 88-92 %
#Nonischemic Troponin Elevation
Most likely secondary to persistent tachycardia due to poor oxygenation as a consequence of end-stage COPD
- elevated troponin 0.038 w/o signs of ischemia on ECG
- Troponins peaked at 0.038
#Leukocytosis
Most likely iatrogenic as pt on chronic home prednisone for RA
- White count 12,300, mild left shift. Afebrile
- Increase productive cough in the past 2 days
- Chest x-ray is unremarkable
- COVID and flu negative
#Paroxysmal atrial fibrillation
- on tele; tachycardic with irregular rhythm but no formal afib
- not on ac at this time
- Continue diltiazem
#Anxiety and depression
- Continue sertraline
#History of iron deficiency anemia
- History of iron infusions.
- TIBC wnl, Iron wnl, Ferritin wnl
DVT prophylaxis: Lovenox subcu
CODE STATUS: DNR
Anticipated Discharge: > 48 hours
Subjective/Interval History
-
Date of Service: April 15, 2025
Patient remains on near continuous BiPAP, able to take breaks for less than 25 minutes before needing to go back on BiPAP (same settings 18/8/4 L). Has not asked for morphine. Otherwise no acute events overnight.
Objective Data
-
Labs:
Laboratory Results
04/15/25
04:39
WBC 11.2 H
Hgb 11.3 L
Hct 35.3 L
Plt Count 194
Sodium 136
Potassium 4.6
Chloride 101
Carbon Dioxide 37 H
BUN 25 H
Creatinine 0.5 L
Glucose 137 H
Calcium 9.2
Total Bilirubin 0.4
AST 24
ALT 22
Alkaline Phosphatase 99
Vital Signs:
Vital Signs
Temp Pulse Resp BP Pulse Ox
98.1 F 97 22 131/70 96
04/15/25 15:20 04/15/25 15:00 04/15/25 15:00 04/15/25 14:00 04/15/25 15:20
I&O
04/14/25 04/15/25 04/16/25
06:59 06:59 06:59
Intake Total 280 / 280 1200 / 1200 480 / 480
Output Total 250 / 250 600 / 600 325 / 325
Balance 30 / 30 600 / 600 155 / 155
Review of Systems
-
History Source: Patient
All other systems: Reviewed and negative
Constitutional: Reports Fatigue and Weakness
Respiratory: Reports Trouble Breathing
Physical Exam
-
General: Respiratory Distress (Mild to moderate respiratory distress), Appears Chronically Ill and Cachectic (Pulmonary cachexia)
HEENT: Normocephalic, Atraumatic, Moist Mucous Membranes, Gilmore Conjunctivae, PERRLA, Nose Appears Normal, Ears Appear Normal and Oxygen
Respiratory: Decreased Breath Sounds (Severely diminished breath sounds bilaterally, accessory muscle use, tachypnea)
Cardiac: S1/S2, Irregular Rhythm and Tachycardic (Intermittently tachycardic when speaking, with small movements during exam); Negative Murmur
GI: Soft, Nontender, Nondistended and Normal Bowel Sounds
Rectal: Deferred by Provider
Genito-urinary: Deferred by me
Musculoskeletal: No Clubbing, No Cyanosis and No Edema
Skin: Warm, Dry and IV Access / Catheter Site
Neuro: AO x 3
Psych: Intact Judgement/Insight
[2025-04-15 16:35] LABS: Glucose - Point of Care 186 mg/dl (70-99)
--- NOTE | 2025-04-15 16:38 | CM ---
Patient family meeting with physician and /daughter. Discussed options for hospice vs comfort care. Family continues to discuss and wants to talk to Pulomologist and follow up with Physician. CM will continue to follow for discharge planning
needs.
Plan; TBD
[2025-04-15] MEDS: LOVENOX 30 MG SC (17:16)
[2025-04-15] MEDS: ZOLOFT 50 MG PO (22:12)
[2025-04-15] MEDS: NON-FORMULARY ITEM 1 MG PO (22:13)
[2025-04-15] MEDS: VALTREX 500 MG PO (22:20)
[2025-04-15] MEDS: NON-FORMULARY ITEM 75 MG PO (23:08)
[2025-04-15 23:34] LABS: Glucose - Point of Care 198 mg/dl (70-99)
[2025-04-16] VITALS (17 sets, daily range): BP systolic 98–146; BP diastolic 58–96; PULSE 2–87; BMI 17.7
[2025-04-16] MEDS: NOVOLOG FLEXPEN 1 UNITS SC (00:45)
[2025-04-16 05:14] LABS: Hematocrit 38.5 % (37.0-47.0); Hemoglobin 12.4 g/dL (12.0-16.0); Mean Corp Hgb Conc. 32.2 g/dL (33.0-37.0); Mean Corpuscular Volume 92.3 fL (81.0-99.0); Platelet Count 227 10^3/uL (130-400); Red Cell Dist. Width 15.4 % (11.5-14.5)
[2025-04-16 05:38] LABS: ALT (SGPT) 23 U/L (0-35); AST (SGOT) 25 U/L (14-36); Albumin 3.8 g/dl (3.5-5.0); Alkaline Phosphatase 97 U/L (38-126); Blood Urea Nitrogen 23 mg/dl (7-17); Calcium 9.0 mg/dl (8.4-10.2); Carbon Dioxide 32 mmol/L (22-30); Chloride 98 mmol/L (98-107); Estimated Creatinine Clearance 52 ml/min; Glucose 135 mg/dl (70-99); Potassium 4.9 mmol/L (3.5-5.1); Sodium 135 mmol/L (135-145); Total Protein 6.0 g/dl (6.3-8.2); eGFR > 60.00
--- NOTE | 2025-04-16 06:45 | PTCARENOTE ---
Pt Aox3, NSR/ST on monitor, denies pain. Remains on Bipap 18/8 4L. Pt took 1 break around 2200 for 45min. CHG bath and teeth brushed. Daughter remains at bedside.
--- NOTE | 2025-04-16 07:09 | W.PN.HOSP.TC ---
Addendum entered and electronically signed by Luci Ferris MD 04/16/25 13:29:
I saw and evaluated the patient independently. I reviewed and discussed the resident�s note and agree with findings and plan as documented by Dr. Malagon.
GENERAL: well developed, well nourished, female remains on BiPAP, red faced, SOB
HEENT: NC/AT--on BiPAP
HEART: regular rate and rhythm, +S1, +S2, tachycardic
LUNGS : no air movement at all appreciated--no wheezing
ABDOM: soft, nontender, nondistended, + bowel sounds
EXT: no cyanosis, clubbing, or edema
NEUROLOGIC: grossly intact
Acute on chronic hypoxemic/hypercarbic respiratory failure due to severe COPD exacerbation-- progressive and end stage--pt with chronic hypoxemia with O2 dependency at home with reduced FEV1 to 19%--pt DOES NOT want intubation or CPR BUT DOES want
as much treatment as we can provide short of that--apprec manager of care--decadron from 4 mg IV Q8H to 6mg IV Q12H (no wheezing noted at all, in fact poor air movement throughout), nebs, pulmicort, follow ABGs--BiPAP support 01/12--small dose morphine
as need for air hunger but pt refuses to take it--cont home zithromax, no need for other antibiotics--COVID/FLU negative--goal O2 sats 88-92%--had extensive discussion with pt/, , daughter, CM (see details from previous notes)
Leukocytosis with left shift--CXR without infiltrates--hold on further ABX --cont zithromax
paroxysmal atrial fibrillation--sinus rhythm, tachycardic, cont diltiazem
nonischemic myocardial injury troponin elevation
History of anxiety and depression--Continue sertraline
History of iron deficiency anemia required infusions--check iron studies
As of 04/15/25 After much discussion, the decision/plan is the following...
1.) Continue active treatment currently with the intent of having the patient's daughter (who is scheduled for trach revision surgery April 26) come to the hospital to visit either Thursday, Thursday, or Thursday pending arrangements to be made.
2.) After patient meets with her daughter, she will then likely change to comfort measures and wait until April 26 (her daughter's surgery), provided she does well enough on comfort to last that long.
3.) After that, then likely inpatient hospice here.
Explained that our hospice is very strict when it comes to hospice diagnoses and treatments regarding that diagnosis (I.E.BiPAP, nebs, oxygen, etc.) and that those treatments will not be offered but morphine as needed with eventual transition to
morphine drip if needed would be the proper course.
Explained that home hospice is likely not feasible, however, should she make it home, she could wear her BiPAP for 'comfort'. Should she go to a facility, the same can be said but she would need to have a different hospice agency other than
[facility] hospice either at home or in a facility.
04/16/25-- pt and daughter said arrangements made for her other daughter to come Thursday to visit--she is not agreeing to comfort measures yet since now she wants to sign her will, speak with Dr. Guevara, call insurance [employer] etc--she wanted her
sulfasalazine and leflunomide started as well as her new injectable arthitis med (which I said no to) as well as checking iron studies (again which I said no to)--these things are night aligned with comfort as a priority....
code status--DNR
DVT proph--Lovenox
Original Note:
Today's Communication/Plan
-
c/w BiPAP
c/w inhalers, nebulizers, steroids
ongoing GOC discussions
Podiatry consult thursday for possible toe nail clipping
Assessment / Plan
Assessment / Plan
Yvonne is a 74-year-old female with severe end-stage COPD, chronic hypercapnic respiratory failure, rheumatoid arthritis, paroxysmal atrial fibrillation, lymphedema presented to the ED with significant shortness of breath after being off BiPAP
for less than 16 hours while at home. Patient has had 4 hospitalizations for COPD exacerbations within the last 5 months.
##Acute on chronic severe COPD exacerbation
##End-Stage COPD
# Pulmonary cachexia
# 40+ year tobacco use history
Use of accessory muscles, unable to speak in full sentences, tachycardic, tachypnea. needing BiPAP during night and afternoons naps while at home.
- Admit to the ICU; remains in IMCU due to tenuous respiratory status
- Hold home dose oral prednisone; c/w IV Decadron 4 mg Q8
- Continue with home regimen of theophylline, azithromycin, Brovana/budesonide nebs, ipratropium albuterol nebulizers as needed, phosphodiesterase inhibitor, Spiriva
- continue morphine 0.5 mg IV as needed to help with air hunger
- Continue home dose of azithromycin 250 mg MWF
- infectious workup negative
-Patient is currently maxed out on symptomatic therapy, seen by multiple pulmonology specialists and declined lung transplant
- now needing BiPAP continuously, arterial blood gas demonstrate patient requires continuous BiPAP to maintain baseline pH
- Will continue with intermittent breaks, patient currently able to tolerate between 20 to 40 minutes of BiPAP
Follow-up family meeting on 04/14 and 04/15 � daughter and patient agreeable to comfort care measures whilst inpatient, preferring to maintain certain pulmonary/nebulizer treatments as well as BiPAP for comfort while also refraining from unnecessary
testing and medication administration. Discussions regarding the specifics of goals of care are ongoing with family and care team.
#Acute on chronic hypercapnic/hypoxemic respiratory failure
- Chronic bipap and O2 use at home
- Now on near continuous BiPAP, see above
- Continue oxygen with goal spo2 88-92 %
#Insomnia
Likely from increasing BiPAP needs, end stage respiratory failure, hospital environment
- given Melatonin 5mg qhs
- Steroid dosing changed to 6mg IV Q12 for better timing (though may soon transition to PO)
#Nonischemic Troponin Elevation
Most likely secondary to persistent tachycardia due to poor oxygenation as a consequence of end-stage COPD
- elevated troponin 0.038 w/o signs of ischemia on ECG
- Troponins peaked at 0.038
#Leukocytosis
Most likely iatrogenic as pt on chronic home prednisone for RA
- White count 12,300, mild left shift. Afebrile
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
- COVID and flu negative
- less likely infectious at this time, continuing to monitor CBC/temp curve
#Paroxysmal atrial fibrillation
- on tele; tachycardic with irregular rhythm but no formal afib
- not on ac at this time
- Continue diltiazem
#H/o RA
Pt reports history of RA, had been on medication in the past, follows with rheum, planned to start new biologic prior to recent hospitalizations
- we are not allowed to start her on a new infectible medication during this hospital admission, especially not with all her other significant comorbidities and impending hospice
- we do not have Leflunomide on formulary, they may bring it from home if they wish
- we can continue her sulfasalazine
#Anxiety and depression
- Continue sertraline
#History of iron deficiency anemia
- History of iron infusions.
- TIBC wnl, Iron wnl, Ferritin wnl
DVT prophylaxis: Lovenox subcu
CODE STATUS: DNR
Anticipated Discharge: > 48 hours
Subjective/Interval History
-
Date of Service: April 16, 2025
No acute events overnight. Patient dontrell on BiPAP 18/8/4 L with tolerance of 45-minute break. Patient remains with significant short of breath on movement. No pain at this time. Pt asking for iron studies and to take her home DMARDs for arthritis
as they have not been able to see Nitroglycerin Separator Operator due to frequent hospitalizations for End-Stage COPD exacerbations.
Objective Data
-
Labs:
Laboratory Results
04/16/25
05:02
WBC 10.0
Hgb 12.4
Hct 38.5
Plt Count 227
Sodium 135
Potassium 4.9
Chloride 98
Carbon Dioxide 32 H
BUN 23 H
Creatinine 0.4 L
Glucose 135 H
Calcium 9.0
Total Bilirubin 0.3
AST 25
ALT 23
Alkaline Phosphatase 97
Vital Signs:
Vital Signs
Temp Pulse Resp BP Pulse Ox
98.0 F 68 16 110/63 95
04/16/25 06:38 04/16/25 06:00 04/16/25 06:00 04/16/25 06:00 04/16/25 06:00
I&O
04/15/25 04/16/25 04/17/25
06:59 06:59 06:59
Intake Total 1200 / 1200 840 / 840
Output Total 600 / 600 1225 / 1225
Balance 600 / 600 -385 / -385
Review of Systems
-
History Source: Patient and Family
All other systems: Reviewed and negative
Constitutional: Reports Fatigue and Other (Insomnia)
EENT: Reports No Symptoms Reported
Respiratory: Reports Cough and Trouble Breathing; Denies Hemoptysis or Wheezing
Cardiac: Reports No Symptoms
Abdomen/GI: Reports No Symptoms
Genitourinary: Reports No Symptoms
Musculoskeletal: Reports No Symptoms
Skin: Reports No Symptoms
Neuro: Reports No Symptoms
Physical Exam
-
General: Respiratory Distress, Appears Chronically Ill and Cachectic
HEENT: Normocephalic, Atraumatic, Moist Mucous Membranes, Anicteric, Neotsu Conjunctivae, No Ptosis, PERRLA, Nose Appears Normal, Ears Appear Normal and Other (BiPAP mask)
Respiratory: Wheezes, Rales, Rhonchi, Accessory Resp Muscle Use and Decreased Breath Sounds (Breath sounds improved on BiPAP, however still diminished)
Cardiac: S1/S2 and Irregular Rhythm; Negative Murmur
GI: Soft, Nontender, Nondistended and Normal Bowel Sounds
Rectal: Deferred by Provider
Genito-urinary: Deferred by me
Musculoskeletal: No Clubbing, No Cyanosis and No Edema
Skin: Warm, Dry and IV Access / Catheter Site
Neuro: AO x 3
Psych: Intact Judgement/Insight
--- NOTE | 2025-04-16 07:10 | PTCARENOTE ---
Received patient A&Ox4, denied pain throughout, NSR, BP WNL, on continuous BiPAP 18/8 4L, shorts breaks allowed in between, diet pending change, Ensure Protein drink BID, GI/ continent.
[2025-04-16] MEDS: DUONEB 3 ML INH ×4 (07:33→21:00)
[2025-04-16] MEDS: PULMICORT 0.5 MG INH ×2 (07:33→21:00)
--- NOTE | 2025-04-16 07:35 | W.PN.PUL3 ---
Today's Communication / Plan
-
Family still has not formally decided to go comfort measures--now stating they wish to wait for other goals this week as noted below in my note
Continue BIPAP and current care, would not offer additional medications/care at this point
Continued discussions regarding GOC
Assessment
-
74-year-old female with previous history of severe end-stage COPD, chronic hypoxemic and hypercarbic respiratory failure on BiPAP, presenting to ER with worsening shortness of breath. She had been using her BiPAP nightly, noticed progressive
shortness of breath in less than 16 hours after usage. Was previously admitted and discharged on 03/24/2025, 02/22/2025, 12/28/2024, 11/14/2024 for similar. Hospice was discussed on previous hospitalizations but patient was not ready. She was placed
on morphine at home which was discontinued. On arrival ABG obtained with pH 7.33, pCO2 81, bicarb 42 satting 99%. She is placed on continuous BiPAP. She is a DNR. Admitted to ICU for tenuous respiratory status.
Acute on chronic hypoxic and hypercarbic respiratory failure
End-stage COPD with recurrent admissions
Acute on chronic shortness of breath
Pulmonary cachexia
Conditions present prior admission:
Advanced COPD: 4 L nasal cannula, noninvasive mechanical ventilation-chronic hypoxemic and hypercapnic respiratory failure
Up until recently followed at [facility]- Dr. Shi, she was denied transplant
PFT 12/2024: FEV1 was 0.34 ml / 19% predicted.
Former smoker, 40 PYs
Rheumatoid arthritis
Chronic anemia
Hypertension
Anxiety
Osteoporosis
Atrial Fibrillation
Plan
Patient has baseline severe COPD, end stage, on maximal medical therapy as out patient
Outpatient COPD regimen includes: Low-dose theophylline, Azithromycin for anti-inflammatory properties, Brovana/budesonide nebulizers, Ipratropium/albuterol nebulizers as needed, Ohtuvayre and Spiriva. Also been on chronic low-dose prednisone
therapy (5 mg PO bid) and was started on noninvasive mechanical ventilation 12/2024
She has been seen by Darshan and declined transplant
She is maintained on 4 L nasal cannula chronically at baseline
I have reviewed all relevant prior records and recent admissions
Chest x-ray obtained indicating clear lungs
No pneumonia noted on imaging this admission.
No evidence of infection, would observe off antibiotics
Continue Duoneb scheduled along with Budesonide.
Placed on IV steroids, she is chronically on 5 mg twice daily
Last PFT indicating very severe lung function with 19% FEV1
I do not think her outpatient regiment is benefitting her at this point but they would like to continue
She was placed on BiPAP at home, using it nightly and reports excellent compliance
Arrival ABG demonstrating pH 7.3, pCO2 81
This demonstrates clearly to me that she requires continuous BiPAP as she is unable to make it less than 16 hours post usage at night
She is placed on our machine with repeat ABG 7.
I discussed this with her daughter clearly, she may need continuous BiPAP with very infrequent breaks
I would not offer other modes of PAP including NIV or AVAPs
N.p.o. for now, she was already cachectic and underweight
She is at great risk for aspiration-- I discussed this repeatedly with her who seems to lack understanding of this, keeps asking if she can eat
IV fluids
Family is deciding on comfort measures, will review with CM/primary team
Await decision making
Discussions
04/13/25: She is currently DNR and would not want to proceed with trach and PEG; But yet previous discussions regarding hospice, patient reports that she is not ready. I discussed this extensively in front of the patient and the daughter that her
goals of care do not align and that she is lacking insight into her condition overall. She has demonstrated very poor quality of life with frequent hospitalizations. She meets all the criteria for end-stage COPD. It would be helpful if the family
were to support her mentally to except her lung condition. They were agreeable to repeat hospice consult, this is placed
I am not sure that she has a meaningful path to be discharged home safely if she is on nightly BiPAP and is unable to control CO2 levels. This may mean that she requires continuous BiPAP. The daughter understands, she notes that she has difficult
decision making at this time because her younger sister underwent trach and is having a surgery on 04/26. She wishes for her mother to be alive until then. I have implored the family to have meetings and to discuss her care.
04/14- Family mtg today including Diamond, Dr Ferris, /patient/daughter via phone. Daughter is not ready to accept that her mother is dying or end stage, despite the fact that all the providers here are in agreement that this is her
prognosis. Patient has deferred her choice to her daughter. They wish to speak to Dr Guevara, we will notify him. This may need to involve ethics consult.
04/15- Family was receptive to comfort measures but still had not formally decided.
04/16-Daughter now states they want to check with insurance, wait for patient to sign paperwork/will, have her other daughter visit, and speak with Dr Guevara before they decide on comfort
They still wish for her to stay alive until 04/26. is asking repetitive questions that we reviewed before, he appears to lack insight into her condition completely.
Diagnostic Data
Chest X-Ray: 04/13/25- 1. Clear lungs. 2. No significant change compared to prior study.
CT Scan: CHEST 12/24/24- No evidence of central pulmonary embolism. Suspected changes of emphysema. Overall peripheral prominent size of pulmonary interstitial markings widespread bilaterally at least in part could be chronic. Acute interstitial
pneumonitis cannot be excluded. No focal parenchymal consolidation, pneumothorax or pleural effusion.
Echo: 11/14/24- Low normal LV systolic function with left ventricular ejection fraction estimated by Juarez's method 50% Normal left ventricular wall thickness Normal diastolic function. Normal atrial dimensions Aortic valve poorly visualized with
mildly thickened leaflets consistent with aortic sclerosis without stenosis. No significant aortic insufficiency. Trace mitral and tricuspid insufficiency Unable to estimate right heart pressures due to paucity of TR jet. No pericardial effusion
No prior study available for comparison
PFT's: 12/26/24- FEV1 was .034ml / 19% predicted. FVC was 1.67L / 73% predicted. Very severe obstruction.
Reports and relevant images were personally reviewed.
Total time spent on this consultation/encounter __55__ minutes which includes review of history, physical exam, medications, laboratory data, personal review of imaging, extensive review of outpatient records, discussion with care team and
respiratory therapy.
Subjective Data
-
Date of Service:
Date of Service: April 16, 2025
Chief Complaint: Pulmonary Follow Up
Subjective:
Remains on BIPAP, no events ON
Daughter at bedside
Objective Data
Data Reviewed
Vital Signs / I&O / Oxygen:
Vital Signs
Temp Pulse Resp BP Pulse Ox
98.0 F 68 16 110/63 95
04/16/25 06:38 04/16/25 06:00 04/16/25 06:00 04/16/25 06:00 04/16/25 06:00
Intake and Output
04/15/25 04/16/25 04/17/25
06:59 06:59 06:59
Intake Total 1200 / 1200 840 / 840
Output Total 600 / 600 1225 / 1225
Balance 600 / 600 -385 / -385
SaO2 95
Nasal Cannula flow liters per 4
minute
Physical Exam
General: Comfortable and Other (NAD)
HEENT: Normocephalic, Anicteric and Moist Mucous Membranes
Cardiovascular: S1-S2 and Regular Rhythm
Respiratory: Clear (decreased BS BL) and Non-Labored Respirations
GI: Soft, Non Distended and Non Tender
Neurology: Awake, Alert, Oriented and No Motor Deficits
Skin: Warm, Dry and Good Color
Labs/Micro/Reports
Lab Data
04/16/25 05:02
04/16/25 05:02
Microbiology
04/13/25 09:05 Nasal Swab Influenza Types A & B (WARNER) - Final
Negative for Influenza A & B, NAAT
Negative results must be combined with clinical observations
and patient history.
Nucleic Acid Amplification test (NAAT)performed on the
[employer] platform.
[2025-04-16] MEDS: NOVOLOG FLEXPEN-MODERATE RESISTANCE SC ×2 (08:00→16:52)
[2025-04-16 08:02] LABS: Glucose - Point of Care 113 mg/dl (70-99)
[2025-04-16] MEDS: RESTASIS 0.05% OPHTHALMIC EMULSION 1 DROPS BOTH EYES ×2 (09:00→20:23)
[2025-04-16] MEDS: DECADRON 6 MG IV ×2 (09:37→20:24)
[2025-04-16] MEDS: NOVOLOG FLEXPEN-MODERATE RESISTANCE 7 UNITS SC (11:57)
[2025-04-16 12:06] LABS: Glucose - Point of Care 309 mg/dl (70-99)
--- NOTE | 2025-04-16 12:30 | PTCARENOTE ---
Patient now on Full liquid diet, added Melatonin for sleep tonight.
[2025-04-16 16:51] LABS: Glucose - Point of Care 100 mg/dl (70-99)
[2025-04-16] MEDS: LOVENOX 30 MG SC (17:23)
[2025-04-16] MEDS: MELATONIN 5 MG PO (20:23)
[2025-04-16] MEDS: AZULFIDINE 500 MG PO (20:23)
[2025-04-16] MEDS: VALTREX 500 MG PO (20:24)
[2025-04-16] MEDS: ZOLOFT 50 MG PO (20:24)
[2025-04-16] MEDS: NON-FORMULARY ITEM 20 MG PO (20:25)
[2025-04-16] MEDS: NON-FORMULARY ITEM 1 MG PO (20:26)
[2025-04-16 21:17] LABS: Glucose - Point of Care 220 mg/dl (70-99)
[2025-04-17] VITALS (17 sets, daily range): BP systolic 104–147; BP diastolic 64–94; PULSE 2–102; BMI 17.1
[2025-04-17] MEDS: LIDOCAINE 4% PATCH 1 PATCH TOPICAL (00:33)
--- NOTE | 2025-04-17 05:14 | PTCARENOTE ---
No acute events overnight. Patient on the bipap throughout the shift with one 10 min break to speak to her . Lidocaine patch applied to right knee for pain per request. See worklist for nursing shift assessment details.
[2025-04-17 06:25] LABS: Hematocrit 39.8 % (37.0-47.0); Hemoglobin 12.7 g/dL (12.0-16.0); Mean Corp Hgb Conc. 31.9 g/dL (33.0-37.0); Mean Corpuscular Volume 89.8 fL (81.0-99.0); Platelet Count 254 10^3/uL (130-400); Red Cell Dist. Width 15.2 % (11.5-14.5)
[2025-04-17 06:35] LABS: ALT (SGPT) 27 U/L (0-35); AST (SGOT) 25 U/L (14-36); Albumin 3.9 g/dl (3.5-5.0); Alkaline Phosphatase 98 U/L (38-126); Blood Urea Nitrogen 19 mg/dl (7-17); Calcium 9.2 mg/dl (8.4-10.2); Carbon Dioxide 34 mmol/L (22-30); Chloride 97 mmol/L (98-107); Estimated Creatinine Clearance 51 ml/min; Glucose 114 mg/dl (70-99); Potassium 4.3 mmol/L (3.5-5.1); Sodium 136 mmol/L (135-145); Total Protein 6.1 g/dl (6.3-8.2); eGFR > 60.00
[2025-04-17] MEDS: DUONEB 3 ML INH ×4 (07:10→19:47)
[2025-04-17] MEDS: PULMICORT 0.5 MG INH ×2 (07:10→19:47)
[2025-04-17 07:55] LABS: Glucose - Point of Care 110 mg/dl (70-99)
[2025-04-17] MEDS: NOVOLOG FLEXPEN-MODERATE RESISTANCE SC ×3 (08:32→17:26)
--- NOTE | 2025-04-17 08:48 | W.PN.PUL.V3 ---
Today's Communication / Plan
-
Respiratory status quite tender
Continue supplemental oxygen and supportive care
Comfort a priority
Patient not ready for hospice-see discussions
Assessment
-
74-year-old female with previous history of severe end-stage COPD, chronic hypoxemic and hypercarbic respiratory failure on BiPAP, presenting to ER with worsening shortness of breath. She had been using her BiPAP nightly, noticed progressive
shortness of breath in less than 16 hours after usage. Was previously admitted and discharged on 03/24/2025, 02/22/2025, 12/28/2024, 11/14/2024 for similar. Hospice was discussed on previous hospitalizations but patient was not ready. She was placed
on morphine at home which was discontinued. On arrival ABG obtained with pH 7.33, pCO2 81, bicarb 42 satting 99%. She is placed on continuous BiPAP. She is a DNR. Admitted to ICU for tenuous respiratory status.
Acute on chronic hypoxic and hypercarbic respiratory failure
End-stage COPD with recurrent admissions
Acute on chronic shortness of breath
Pulmonary cachexia
Conditions present prior admission:
Advanced end-stage COPD: 4 L nasal cannula, noninvasive mechanical ventilation-chronic hypoxemic and hypercapnic respiratory failure
Up until recently followed at [facility]- Dr. Shi, she was denied transplant
PFT 12/2024: FEV1 was 0.34 ml / 19% predicted.
Former smoker, 40 PYs
Rheumatoid arthritis
Chronic anemia
Hypertension
Anxiety
Osteoporosis
Atrial Fibrillation
Plan
Patient has baseline severe COPD, end stage, on maximal medical therapy as out patient
Outpatient COPD regimen includes: Low-dose theophylline, Azithromycin for anti-inflammatory properties, Brovana/budesonide nebulizers, Ipratropium/albuterol nebulizers as needed, Ohtuvayre and Spiriva. Also been on chronic low-dose prednisone
therapy (5 mg PO bid) and was started on noninvasive mechanical ventilation 12/2024
She has been seen by [facility] and declined transplant
She is maintained on 4 L nasal cannula chronically at baseline
Respiratory status remains quite tenuous-overall BiPAP dependent with liberation for 2 to 3 hours here and there on nasal cannula
Incentive spirometry
DuoNebs and budesonide
Continue steroids
Daytime as needed
Chronic hypercapnic respiratory failure noted
At this point I do not think biologic such as Dupixent or other forms of noninvasive ventilation would ultimately be a 'game changer'
She does not wish to pursue tracheostomy tube/chronic ventilator facility
Diuresis as tolerated
Monitor renal function, electrolytes, intake/output, lower extremity edema and weight
Replace electrolytes as needed
Dr. Guevara had long discussion with patient and at the bedside-she wishes to be comfortable, DNR, however, wants to be alive if at all possible through her daughter Marietta's tracheostomy revision surgery which is scheduled for 04/26/2025
at [facility].
She would like to continue with supportive care with an emphasis on comfort but not ready to go hospice or discontinue supportive care
Dr. Guevara had separate lengthy conversation with daughter and again-they are all in agreement that comfort care/supportive care/not hospice is desired at this point until sister gets tracheostomy revision
Total time spent today 55 minutes in patient care, 2 separate bedside evaluations, and 2 separate family conversations
Discussions
04/13/25: She is currently DNR and would not want to proceed with trach and PEG; But yet previous discussions regarding hospice, patient reports that she is not ready. I discussed this extensively in front of the patient and the daughter that her
goals of care do not align and that she is lacking insight into her condition overall. She has demonstrated very poor quality of life with frequent hospitalizations. She meets all the criteria for end-stage COPD. It would be helpful if the family
were to support her mentally to except her lung condition. They were agreeable to repeat hospice consult, this is placed
I am not sure that she has a meaningful path to be discharged home safely if she is on nightly BiPAP and is unable to control CO2 levels. This may mean that she requires continuous BiPAP. The daughter understands, she notes that she has difficult
decision making at this time because her younger sister underwent trach and is having a surgery on 04/26. She wishes for her mother to be alive until then. I have implored the family to have meetings and to discuss her care.
04/14- Family mtg today including [place], Dr Ferris, /patient/daughter via phone. Daughter is not ready to accept that her mother is dying or end stage, despite the fact that all the providers here are in agreement that this is her
prognosis. Patient has deferred her choice to her daughter. They wish to speak to Dr Guevara, we will notify him. This may need to involve ethics consult.
04/15- Family was receptive to comfort measures but still had not formally decided.
04/16-Daughter now states they want to check with insurance, wait for patient to sign paperwork/will, have her other daughter visit, and speak with Dr Guevara before they decide on comfort
They still wish for her to stay alive until 04/26. is asking repetitive questions that we reviewed before, he appears to lack insight into her condition completely.
Diagnostic Data
Chest X-Ray: 04/13/25- 1. Clear lungs. 2. No significant change compared to prior study.
CT Scan: CHEST 12/24/24- No evidence of central pulmonary embolism. Suspected changes of emphysema. Overall peripheral prominent size of pulmonary interstitial markings widespread bilaterally at least in part could be chronic. Acute interstitial
pneumonitis cannot be excluded. No focal parenchymal consolidation, pneumothorax or pleural effusion.
Echo: 11/14/24- Low normal LV systolic function with left ventricular ejection fraction estimated by Juarez's method 50% Normal left ventricular wall thickness Normal diastolic function. Normal atrial dimensions Aortic valve poorly visualized with
mildly thickened leaflets consistent with aortic sclerosis without stenosis. No significant aortic insufficiency. Trace mitral and tricuspid insufficiency Unable to estimate right heart pressures due to paucity of TR jet. No pericardial effusion
No prior study available for comparison
PFT's: 12/26/24- FEV1 was .034ml / 19% predicted. FVC was 1.67L / 73% predicted. Very severe obstruction.
Reports and relevant images were personally reviewed.
Subjective Data
-
Date of Service:
Date of Service: April 17, 2025
Chief Complaint: Pulmonary Follow Up
Subjective:
Patient tolerated BiPAP last night, now alert and oriented, on BiPAP, no respiratory distress, no chest pain or abdominal pain, had episode of what sounds like anxiety with increased respiratory distress requiring BiPAP last night, no abdominal pain
Review of Systems
General: Other (Per HPI)
Objective Data
Data Reviewed
Vital Signs / I&O:
Vital Signs
Temp Pulse Resp BP Pulse Ox
98.4 F 89 20 124/91 98
04/17/25 08:00 04/17/25 08:00 04/17/25 08:00 04/17/25 06:00 04/17/25 07:15
Intake and Output
04/16/25 04/17/25 04/18/25
06:59 06:59 06:59
Intake Total 840 / 840 1740 / 1740
Output Total 1225 / 1225 1775 / 1775 150 / 150
Balance -385 / -385 -35 / -35 -150 / -150
SaO2: 98
Nasal Cannula flow liters per minute: 4
Physical Exam
General: Respiratory Distress (n), Comfortable and Other (NAD)
HEENT: Normocephalic, Anicteric and Moist Mucous Membranes
Cardiovascular: Regular Rhythm
Respiratory: Clear (decreased BS BL) and Non-Labored Respirations
GI: Soft, Non Distended and Non Tender
Neurology: Awake, Alert and No Motor Deficits
Skin: Warm, Good Color, Cyanosis (n) and Jaundice (n)
Labs/Micro/Reports
Lab Data
04/17/25 05:47
04/17/25 05:47
[2025-04-17] MEDS: AZULFIDINE 500 MG PO ×2 (08:55→19:29)
[2025-04-17] MEDS: VITAMIN B-12 50 MCG PO (08:56)
[2025-04-17] MEDS: THERAGRAN 1 TABLET PO (08:57)
[2025-04-17] MEDS: NON-FORMULARY ITEM 75 MG PO (08:57)
[2025-04-17] MEDS: RESTASIS 0.05% OPHTHALMIC EMULSION 1 DROPS BOTH EYES ×2 (08:57→19:29)
[2025-04-17] MEDS: NON-FORMULARY ITEM 20 MG PO (08:58)
[2025-04-17] MEDS: DECADRON 6 MG IV ×2 (08:58→19:29)
[2025-04-17] MEDS: VITAMIN C 1000 MG PO (09:06)
[2025-04-17] MEDS: VITAMIN D3 (cholecalciferol) 25 MCG PO (09:06)
[2025-04-17 12:15] LABS: Glucose - Point of Care 104 mg/dl (70-99)
--- NOTE | 2025-04-17 12:15 | W.PN.HOSP.TC ---
Today's Communication/Plan
-
Continue treatment as it is
Continuous BiPAP with breaks as tolerated
IV steroids for now, pending de-escalation per Pulm
Assessment / Plan
Assessment / Plan
Yvonne is a 74-year-old female with severe end-stage COPD, chronic hypercapnic respiratory failure, rheumatoid arthritis, paroxysmal atrial fibrillation, lymphedema presented to the ED with significant shortness of breath after being off BiPAP
for less than 16 hours while at home. Patient has had 4 hospitalizations for COPD exacerbations within the last 5 months.
##Acute on chronic severe COPD exacerbation
##End-Stage COPD
# Pulmonary cachexia
# 40+ year tobacco use history
Use of accessory muscles, unable to speak in full sentences, tachycardic, tachypnea. needing BiPAP during night and afternoons naps while at home.
- Admit to the ICU; remains in IMCU due to tenuous respiratory status
- Hold home dose oral prednisone; c/w IV Decadron 6 mg Q12
- Continue with home regimen of theophylline, azithromycin, Brovana/budesonide nebs, ipratropium albuterol nebulizers as needed, phosphodiesterase inhibitor, Spiriva
- continue morphine 0.5 mg IV as needed to help with air hunger
- Continue home dose of azithromycin 250 mg MWF
- infectious workup negative
-Patient is currently maxed out on symptomatic therapy, seen by multiple pulmonology specialists and declined lung transplant
- now needing BiPAP continuously, arterial blood gas demonstrate patient requires continuous BiPAP to maintain baseline pH
- Will continue with intermittent breaks, patient currently able to tolerate between 10 to 40 minutes of BiPAP
Follow-up family meeting on 04/14 and 04/15 � initially agreeable to comfort care measures
04/16/2025 - 04/17/2025 - family now opting to continue with all medical care efforts in an attempt to allow patient to remain alive so that she can see her daughter after major surgery on 04/26, or few days thereafter. If the patient survives long
enough to see her daughter after surgery, she will then initiate comfort care/hospice.
#Acute on chronic hypercapnic/hypoxemic respiratory failure
- Chronic bipap and O2 use at home
- Now on near continuous BiPAP, see above
- Continue oxygen with goal spo2 88-92 %
#Insomnia
Likely from increasing BiPAP needs, end stage respiratory failure, hospital environment
- given Melatonin 5mg qhs
- Steroid dosing changed to 6mg IV Q12 for better timing
#Nonischemic Troponin Elevation
Most likely secondary to persistent tachycardia due to poor oxygenation as a consequence of end-stage COPD
- elevated troponin 0.038 w/o signs of ischemia on ECG
- Troponins peaked at 0.038
#Leukocytosis
Most likely iatrogenic as pt on chronic home prednisone for RA
- White count 12,300, mild left shift. Afebrile
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
- COVID and flu negative
- less likely infectious at this time, continuing to monitor CBC/temp curve
#Paroxysmal atrial fibrillation
- on tele; tachycardic with irregular rhythm but no formal afib
- not on ac at this time
- Continue diltiazem
#H/o RA
Pt reports history of RA, had been on medication in the past, follows with rheum, planned to start new biologic prior to recent hospitalizations
- we are not allowed to start her on a new infectible medication during this hospital admission, especially not with all her other significant comorbidities and impending hospice
- we do not have Leflunomide on formulary, they may bring it from home if they wish
- we can continue her sulfasalazine
#Anxiety and depression
- Continue sertraline
#History of iron deficiency anemia
- History of iron infusions.
- TIBC wnl, Iron wnl, Ferritin wnl
DVT prophylaxis: Lovenox subcu
CODE STATUS: DNR
Anticipated Discharge: > 48 hours
Subjective/Interval History
-
Date of Service: April 17, 2025
No acute events overnight. Patient able to tolerate being off BiPAP only 10 minutes.
Objective Data
-
Labs:
Laboratory Results
04/17/25
05:47
WBC 9.7
Hgb 12.7
Hct 39.8
Plt Count 254
Sodium 136
Potassium 4.3
Chloride 97 L
Carbon Dioxide 34 H
BUN 19 H
Creatinine 0.5 L
Glucose 114 H
Calcium 9.2
Total Bilirubin 0.3
AST 25
ALT 27
Alkaline Phosphatase 98
Vital Signs:
Vital Signs
Temp Pulse Resp BP Pulse Ox
98.4 F 98 25 124/91 97
04/17/25 08:00 04/17/25 11:04 04/17/25 11:04 04/17/25 06:00 04/17/25 11:04
I&O
04/16/25 04/17/25 04/18/25
06:59 06:59 06:59
Intake Total 840 / 840 1740 / 1740
Output Total 1225 / 1225 1775 / 1775 300 / 300
Balance -385 / -385 -35 / -35 -300 / -300
Review of Systems
-
History Source: Patient
All other systems: Reviewed and negative
Constitutional: Reports No Symptoms
EENT: Reports No Symptoms Reported
Respiratory: Reports Trouble Breathing
Cardiac: Reports No Symptoms
Abdomen/GI: Reports No Symptoms
Genitourinary: Reports No Symptoms
Musculoskeletal: Reports No Symptoms
Skin: Reports No Symptoms
Neuro: Reports No Symptoms
Physical Exam
-
General: No Apparent Distress, Comfortable, Appears Chronically Ill, Cachectic and Other (Seen this morning off BiPAP, on 4 L nasal cannula, awake and eating breakfast)
HEENT: Normocephalic, Atraumatic, Moist Mucous Membranes, Anicteric, Bridger Conjunctivae, No Ptosis, PERRLA, Nose Appears Normal, Ears Appear Normal and Oxygen (4 L oxygen nasal cannula)
Respiratory: Wheezes, Rhonchi and Accessory Resp Muscle Use; Negative Rales or Non Labored Respirations
Cardiac: Regular Rhythm and S1/S2; Negative Murmur
GI: Soft, Nontender, Nondistended and Normal Bowel Sounds
Rectal: Deferred by Provider
Genito-urinary: Deferred by me
Musculoskeletal: No Clubbing, No Cyanosis and No Edema
Skin: Warm, Dry and IV Access / Catheter Site
Neuro: AO x 3 and Nonfocal/Grossly Intact
Psych: Calm and Intact Judgement/Insight
--- NOTE | 2025-04-17 14:34 | PTCARENOTE ---
Pt rec'd this am from night RN, AOx3, tolerating bipap well. Pt able to use bedside commode w/ min assistance, for management of lines and wires. pt primarily wearing bipap with short breaks for meals or to visit with family PRN. at bedside.
Upon her arrival at bedside, multiple conversations with daughter aPul re: plan of care. Other daughter also in to visit patient this am from her trach/vent facility. Dr. Guevara also had multiple lengthy conversations with patient and
daughter...Paul now asking for Dr. Rojas to call her, and requesting to speak to Dr. Guevara again tomorrow morning, wanting to discuss 'ALL options' available for patient's plan of care. Message sent to both providers. Pt remains pleasant and
cooperative, safe environment ongoing.
[2025-04-17 17:12] LABS: Glucose - Point of Care 132 mg/dl (70-99)
--- NOTE | 2025-04-17 17:29 | W.PN.UPDATE ---
Update Note
Progress Note Update
Pt and daughter asking whether or not a commissary production supervisor can come clip her toenails in the hospital as this is a service she has had done as an outpatient. She has no acute or life threatening podiatric issue at this time. Reached out to podiatry contact agent
via TT. Was informed that this is not a procedure they do inpatient as they do not have the equipment needed.
[2025-04-17] MEDS: LOVENOX 30 MG SC (17:41)
[2025-04-17] MEDS: VALTREX 500 MG PO (19:28)
[2025-04-17] MEDS: MELATONIN 5 MG PO (19:29)
[2025-04-17] MEDS: ZOLOFT 50 MG PO (19:29)
[2025-04-17] MEDS: ZITHROMAX 250 MG PO (19:29)
[2025-04-17] MEDS: NON-FORMULARY ITEM 200 MG PO (19:30)
--- NOTE | 2025-04-17 20:00 | PTCARENOTE ---
Assumed care of patient. Patient is up in the chair, alert and oriented x3, follows commands. Normal sinus on the monitor, no edema, pulses are palpable. Currently patient is off bipap, on 4L NC. Lung sounds are extremely diminished throughout.
Abdomen is soft, nontender, bowel sounds are present. Continent to both bowel and bladder. Skin is intact, foams changed. IV site is intact.
[2025-04-17 21:17] LABS: Glucose - Point of Care 222 mg/dl (70-99)
[2025-04-18] VITALS (20 sets, daily range): BP systolic 97–169; BP diastolic 62–87; PULSE 2–106; BMI 17.2
[2025-04-18] MEDS: TYLENOL 650 MG PO ×3 (00:28→21:41)
--- NOTE | 2025-04-18 00:30 | PTCARENOTE ---
Patient received Tylenol for knee pain. Requesting to go back on Bipap for sleep. Respiratory made aware and patient placed back on Bipap for sleep.
[2025-04-18 02:33] LABS: Hematocrit 41.0 % (37.0-47.0); Hemoglobin 13.0 g/dL (12.0-16.0); Mean Corp Hgb Conc. 31.7 g/dL (33.0-37.0); Mean Corpuscular Volume 91.1 fL (81.0-99.0); Platelet Count 258 10^3/uL (130-400); Red Cell Dist. Width 14.9 % (11.5-14.5)
[2025-04-18 02:56] LABS: Blood Urea Nitrogen 19 mg/dl (7-17); Calcium 9.4 mg/dl (8.4-10.2); Chloride 96 mmol/L (98-107); Estimated Creatinine Clearance 51 ml/min; Glucose 138 mg/dl (70-99); Potassium 4.8 mmol/L (3.5-5.1); Sodium 136 mmol/L (135-145); eGFR > 60.00
[2025-04-18 03:05] LABS: Carbon Dioxide 36 mmol/L (22-30)
--- NOTE | 2025-04-18 04:25 | PTCARENOTE ---
Labs collected and sent. Patient has no needs or complaints at this time. No changes in assessment.
[2025-04-18] MEDS: PULMICORT 0.5 MG INH ×2 (07:49→19:13)
[2025-04-18] MEDS: DUONEB 3 ML INH ×5 (07:49→22:46)
[2025-04-18 08:57] LABS: Glucose - Point of Care 85 mg/dl (70-99)
[2025-04-18] MEDS: NOVOLOG FLEXPEN-MODERATE RESISTANCE SC ×2 (09:47→17:22)
[2025-04-18] MEDS: LIDOCAINE 4% PATCH 1 PATCH TOPICAL (09:48)
[2025-04-18] MEDS: RESTASIS 0.05% OPHTHALMIC EMULSION 1 DROPS BOTH EYES ×2 (09:48→21:41)
[2025-04-18] MEDS: AZULFIDINE 500 MG PO ×2 (10:00→21:41)
[2025-04-18] MEDS: NON-FORMULARY ITEM 20 MG PO (10:00)
[2025-04-18] MEDS: DECADRON 6 MG IV ×2 (10:00→21:41)
[2025-04-18] MEDS: VITAMIN C PO (10:01)
[2025-04-18] MEDS: VITAMIN D3 (cholecalciferol) PO (10:01)
--- NOTE | 2025-04-18 10:11 | W.PN.HOSP.TC ---
Addendum entered and electronically signed by Levi Malagon MD, Resident 04/18/25 11:52:
#stage 1 PI to her sacral/coccyx, MIDDLE CARD TENDER
#Stage 2 PI to sacrum/coccyx, MIDDLE CARD TENDER, newly healed
Original Note:
Today's Communication/Plan
-
Patient remains stable
Continue current supportive care with an emphasis on comfort
Speech eval when patient off BiPAP long enough to undergo testing rule out aspiration risk and hopefully liberalize diet
Will discuss about downgrading the patient, if possible to a single room on [facility] floors
Assessment / Plan
Assessment / Plan
Yvonne is a 74-year-old female with severe end-stage COPD, chronic hypercapnic respiratory failure, rheumatoid arthritis, paroxysmal atrial fibrillation, lymphedema presented to the ED with significant shortness of breath after being off BiPAP
for less than 16 hours while at home. Patient has had 4 hospitalizations for COPD exacerbations within the last 5 months.
##Acute on chronic severe COPD exacerbation
##End-Stage COPD
# Pulmonary cachexia
# 40+ year tobacco use history
Use of accessory muscles, unable to speak in full sentences, tachycardic, tachypnea. needing BiPAP during night and afternoons naps while at home.
- Admit to the ICU; remains in IMCU due to tenuous respiratory status
- Hold home dose oral prednisone; c/w IV Decadron 6 mg Q12
- Continue with home regimen of theophylline, azithromycin, Brovana/budesonide nebs, ipratropium albuterol nebulizers as needed, phosphodiesterase inhibitor, Spiriva
- continue morphine 0.5 mg IV as needed to help with air hunger
- Continue home dose of azithromycin 250 mg MWF
- infectious workup negative
-Patient is currently maxed out on symptomatic therapy, seen by multiple pulmonology specialists and declined lung transplant
- now needing BiPAP continuously, arterial blood gas demonstrate patient requires continuous BiPAP to maintain baseline pH
- Will continue with intermittent breaks, patient currently able to tolerate between 10 to 90 minutes of BiPAP
Follow-up family meeting on 04/14 and 04/15 � initially agreeable to comfort care measures
04/16/2025 - 04/17/2025 - family now opting to continue with all medical care efforts in an attempt to allow patient to remain alive so that she can see her daughter after major surgery on 04/26, or few days thereafter. If the patient survives long
enough to see her daughter after surgery, she will then initiate comfort care/hospice.
#Acute on chronic hypercapnic/hypoxemic respiratory failure
- Chronic bipap and O2 use at home
- Now on near continuous BiPAP, see above
- Continue oxygen with goal spo2 88-92 %
#Insomnia
Likely from increasing BiPAP needs, end stage respiratory failure, hospital environment
- given Melatonin 5mg qhs
- Steroid dosing changed to 6mg IV Q12 for better timing
#Nonischemic Troponin Elevation
Most likely secondary to persistent tachycardia due to poor oxygenation as a consequence of end-stage COPD
- elevated troponin 0.038 w/o signs of ischemia on ECG
- Troponins peaked at 0.038
#Leukocytosis
Most likely iatrogenic as pt on chronic home prednisone for RA
- White count 12,300, mild left shift. Afebrile
- Increase productive cough MIDDLE CARD TENDER -- Chest x-ray is unremarkable
- COVID and flu negative
- less likely infectious at this time, continuing to monitor CBC/temp curve
#Paroxysmal atrial fibrillation
- on tele; tachycardic with irregular rhythm but no formal afib
- not on ac at this time
- Continue diltiazem
#H/o RA
Pt reports history of RA, had been on medication in the past, follows with rheum, planned to start new biologic prior to recent hospitalizations
- we are not allowed to start her on a new infectible medication during this hospital admission, especially not with all her other significant comorbidities and impending hospice
- we do not have Leflunomide on formulary, they may bring it from home if they wish
- we can continue her sulfasalazine
#Anxiety and depression
- Continue sertraline
#History of iron deficiency anemia
- History of iron infusions.
- TIBC wnl, Iron wnl, Ferritin wnl
DVT prophylaxis: Lovenox subcu
CODE STATUS: DNR
Anticipated Discharge: > 48 hours
Subjective/Interval History
-
Date of Service: April 18, 2025
Patient remained on BiPAP overnight. Reports longest time of 60 to 90 minutes off BiPAP yesterday evening. No other acute complaints.
Objective Data
-
Labs:
Laboratory Results
04/18/25
02:26
WBC 9.3
Hgb 13.0
Hct 41.0
Plt Count 258
Sodium 136
Potassium 4.8
Chloride 96 L
Carbon Dioxide 36 H
BUN 19 H
Creatinine 0.5 L
Glucose 138 H
Calcium 9.4
Vital Signs:
Vital Signs
Temp Pulse Resp BP Pulse Ox
97.9 F 88 20 104/64 99
04/17/25 23:54 04/18/25 08:11 04/18/25 08:11 04/18/25 06:00 04/18/25 08:11
I&O
04/17/25 04/18/25 04/19/25
06:59 06:59 06:59
Intake Total 1740 / 1740 960 / 960
Output Total 1775 / 1775 2625 / 2625
Balance -35 / -35 -1665 / -1665
Review of Systems
-
History Source: Patient
All other systems: Reviewed and negative
Constitutional: Reports No Symptoms
EENT: Reports No Symptoms Reported
Respiratory: Reports Trouble Breathing
Cardiac: Reports No Symptoms
Abdomen/GI: Reports No Symptoms
Genitourinary: Reports No Symptoms
Musculoskeletal: Reports No Symptoms
Skin: Reports No Symptoms
Neuro: Reports No Symptoms
Hematologic / Lymphatic: Reports No Symptoms
Physical Exam
-
General: Comfortable, Appears Chronically Ill and Cachectic
HEENT: Normocephalic, Atraumatic, Moist Mucous Membranes, Anicteric, [place]o Conjunctivae, PERRLA, Nose Appears Normal, Ears Appear Normal and Other (BiPAP)
Respiratory: Wheezes, Crackles, Accessory Resp Muscle Use and Decreased Breath Sounds; Negative Rhonchi
Cardiac: Regular Rhythm and S1/S2; Negative Murmur or Tachycardic
GI: Soft, Nontender, Nondistended and Normal Bowel Sounds
Genito-urinary: No Costovertebral Tender
Musculoskeletal: No Clubbing, No Cyanosis and No Edema
Skin: Warm, Dry and IV Access / Catheter Site
Neuro: AO x 3 and Nonfocal/Grossly Intact
Psych: Calm and Intact Judgement/Insight
--- NOTE | 2025-04-18 10:24 | PN.CDI ---
CDI
- -
CDI:
Physician Documentation Request
Admit Date: 04/13/25 09:13
Dear Doctor,
Patient admitted for COPD.
04/13 Wound care note: 'Patient has a stage 1 PI to her sacral/coccyx. Skin is non-blanchable red and there appears to be a newly healed stage 2 present.'
Physician documentation of the type and location of wounds is required for compliant documentation. Based on the above clinical findings and your assessment, please provide the following in your progress note:
1. Location of the ulcer/wound, including laterality.
2. Type (etiology) of ulcer/wound:
- Diabetic ulcer
- Arterial (ischemic) ulcer
- Traumatic wound
- Venous stasis ulcer
- Pressure (decubitus) ulcer
- Non-healing surgical wound
- Other
- Unable to determine
3. For a non-pressure ulcer, please indicate the depth/severity:
- Limited to the breakdown of skin
- With fat layer exposed
- With necrosis of muscle
- With necrosis of bone
- Other
- Unable to determine
4. If a pressure ulcer, please also include the stage* of the ulcer:
- Stage 1 - Skin intact, non-blanchable redness
- Stage 2 - Partial thickness loss of dermis, includes intact or open blister
- Stage 3 - Full thickness tissue not including bone, tendon or muscle
- Stage 4 - Full thickness tissue loss, including exposed bone, tendon or muscle
- Unstageable - Full thickness loss in which the base of the ulcer is covered by slough (yellow, dorman, edouard, green or brown) and/or eschar (dorman, brown or black) in the wound bed.
- Unable to determine
Use of terms such as suspected, likely, concern for, or probable (associated with a specific diagnosis that is being evaluated, monitored, or treated as if it exists) are acceptable and can be coded in the inpatient setting, when documented at the
time of discharge.
Thank you,
Gracie Brewster RN, BSN
CDI Specialist
Available via [employer] text
Please use your independent medical judgment in providing your response.
*Source: National Pressure Ulcer Advisory Panel (NPUAP)
--- NOTE | 2025-04-18 10:44 | PTCARENOTE ---
Pt rec'd from night RN, on bipap, called RT to take mask off for breakfast and meds approx 09:30, now tolerating 4L NC, sa02 100%. Pt eating breakfast, daughter Paul at bedside, plan discussed with attending and lead radiologic technologist. Speech eval pending,
therapist aware. Safe environment ongoing.
--- NOTE | 2025-04-18 11:02 | W.PN.PUL.V3 ---
Today's Communication / Plan
-
BiPAP
Oxygen
Nebulizers
See family discussions
Comfort a priority
Assessment
-
74-year-old female with previous history of severe end-stage COPD, chronic hypoxemic and hypercarbic respiratory failure on BiPAP, presenting to ER with worsening shortness of breath. She had been using her BiPAP nightly, noticed progressive
shortness of breath in less than 16 hours after usage. Was previously admitted and discharged on 03/24/2025, 02/22/2025, 12/28/2024, 11/14/2024 for similar. Hospice was discussed on previous hospitalizations but patient was not ready. She was placed
on morphine at home which was discontinued. On arrival ABG obtained with pH 7.33, pCO2 81, bicarb 42 satting 99%. She is placed on continuous BiPAP. She is a DNR. Admitted to ICU for tenuous respiratory status.
Acute on chronic hypoxic and hypercarbic respiratory failure
End-stage COPD with recurrent admissions
Acute on chronic shortness of breath
Pulmonary cachexia
Conditions present prior admission:
Advanced end-stage COPD: 4 L nasal cannula, noninvasive mechanical ventilation-chronic hypoxemic and hypercapnic respiratory failure
Up until recently followed at [facility]- Dr. Shi, she was denied transplant
PFT 12/2024: FEV1 was 0.34 ml / 19% predicted.
Former smoker, 40 PYs
Rheumatoid arthritis
Chronic anemia
Hypertension
Anxiety
Osteoporosis
Atrial Fibrillation
Plan
Patient has baseline severe COPD, end stage, on maximal medical therapy as out patient
Outpatient COPD regimen includes: Low-dose theophylline, Azithromycin for anti-inflammatory properties, Brovana/budesonide nebulizers, Ipratropium/albuterol nebulizers as needed, Ohtuvayre and Spiriva. Also been on chronic low-dose prednisone
therapy (5 mg PO bid) and was started on noninvasive mechanical ventilation 12/2024
She has been seen by Claude and declined transplant
She is maintained on 4 L nasal cannula chronically at baseline
Respiratory status remains quite tenuous-overall BiPAP dependent with liberation for 2 to 3 hours here and there on nasal cannula
Incentive spirometry encouraged continue-no change
DuoNebs and budesonide
Continue steroids
Daytime as needed
Chronic hypercapnic respiratory failure noted
At this point I do not think biologic such as Dupixent or other forms of noninvasive ventilation would ultimately be a 'game changer'
She does not wish to pursue tracheostomy tube/chronic ventilator facility
Diuresis as tolerated
Monitor renal function, electrolytes, intake/output, lower extremity edema and weight
Replace electrolytes as needed
Dr. Guevara had long discussion with patient and at the bedside 04/17/2025-she wishes to be comfortable, DNR, however, wants to be alive if at all possible through her daughter Marietta's tracheostomy revision surgery which is scheduled for
04/26/2025 at [facility].
She would like to continue with supportive care with an emphasis on comfort but not ready to go hospice or discontinue supportive care
Dr. Guevara had separate lengthy conversation with daughter and again 04/17/2025-they are all in agreement that comfort care/supportive care/not hospice is desired at this point until sister gets tracheostomy revision
Dr. Guevara had long conversation with patient, daughter, hospitalist-they want continued supportive care with emphasis on comfort, do not believe they could go home as they do not have enough help with her finances to hire help-continue to want
supportive care until couple days after other daughters tracheal surgery-emotional support provided
Total time spent today 55 minutes in patient care, 2 separate bedside evaluations, and 2 separate family conversations
Discussions
04/13/25: She is currently DNR and would not want to proceed with trach and PEG; But yet previous discussions regarding hospice, patient reports that she is not ready. I discussed this extensively in front of the patient and the daughter that her
goals of care do not align and that she is lacking insight into her condition overall. She has demonstrated very poor quality of life with frequent hospitalizations. She meets all the criteria for end-stage COPD. It would be helpful if the family
were to support her mentally to except her lung condition. They were agreeable to repeat hospice consult, this is placed
I am not sure that she has a meaningful path to be discharged home safely if she is on nightly BiPAP and is unable to control CO2 levels. This may mean that she requires continuous BiPAP. The daughter understands, she notes that she has difficult
decision making at this time because her younger sister underwent trach and is having a surgery on 04/26. She wishes for her mother to be alive until then. I have implored the family to have meetings and to discuss her care.
04/14- Family mtg today including Diamond, Dr Ferris, /patient/daughter via phone. Daughter is not ready to accept that her mother is dying or end stage, despite the fact that all the providers here are in agreement that this is her
prognosis. Patient has deferred her choice to her daughter. They wish to speak to Dr Guevara, we will notify him. This may need to involve ethics consult.
04/15- Family was receptive to comfort measures but still had not formally decided.
04/16-Daughter now states they want to check with insurance, wait for patient to sign paperwork/will, have her other daughter visit, and speak with Dr Guevara before they decide on comfort
They still wish for her to stay alive until 04/26. is asking repetitive questions that we reviewed before, he appears to lack insight into her condition completely.
Diagnostic Data
Chest X-Ray: 04/13/25- 1. Clear lungs. 2. No significant change compared to prior study.
CT Scan: CHEST 12/24/24- No evidence of central pulmonary embolism. Suspected changes of emphysema. Overall peripheral prominent size of pulmonary interstitial markings widespread bilaterally at least in part could be chronic. Acute interstitial
pneumonitis cannot be excluded. No focal parenchymal consolidation, pneumothorax or pleural effusion.
Echo: 11/14/24- Low normal LV systolic function with left ventricular ejection fraction estimated by Juarez's method 50% Normal left ventricular wall thickness Normal diastolic function. Normal atrial dimensions Aortic valve poorly visualized with
mildly thickened leaflets consistent with aortic sclerosis without stenosis. No significant aortic insufficiency. Trace mitral and tricuspid insufficiency Unable to estimate right heart pressures due to paucity of TR jet. No pericardial effusion
No prior study available for comparison
PFT's: 12/26/24- FEV1 was .034ml / 19% predicted. FVC was 1.67L / 73% predicted. Very severe obstruction.
Reports and relevant images were personally reviewed.
Subjective Data
-
Date of Service:
Date of Service: April 18, 2025
Chief Complaint: Pulmonary Follow Up and Dyspnea Follow Up
Subjective:
Tolerated off BiPAP during the daytime intermittently, currently on BiPAP without complaints of shortness of breath, chest pain, productive cough or abdominal pain
Review of Systems
HEENT: Other (Per HPI)
Objective Data
Data Reviewed
Vital Signs / I&O:
Vital Signs
Temp Pulse Resp BP Pulse Ox
97.9 F 95 20 114/85 98
04/17/25 23:54 04/18/25 10:00 04/18/25 10:00 04/18/25 10:00 04/18/25 10:00
Intake and Output
04/17/25 04/18/25 04/19/25
06:59 06:59 06:59
Intake Total 1740 / 1740 960 / 960
Output Total 1775 / 1775 2625 / 2625
Balance -35 / -35 -1665 / -1665
SaO2: 98
Nasal Cannula flow liters per minute: 4
Physical Exam
General: Respiratory Distress (n), Comfortable and Other (NAD)
HEENT: Normocephalic, Anicteric and Moist Mucous Membranes
Cardiovascular: Regular Rhythm
Respiratory: Clear (decreased BS BL) and Non-Labored Respirations
GI: Soft, Non Distended and Non Tender
Neurology: Awake, Alert and No Motor Deficits
Skin: Warm, Good Color, Cyanosis (n) and Jaundice (n)
Labs/Micro/Reports
Lab Data
04/18/25 02:26
04/18/25 02:26
--- NOTE | 2025-04-18 11:39 | PTOTSP ---
Dysphagia Evaluation
Patient has acute on chronic dysphagia risk factors (i.e., severe COPD exacerbation; severe COPD, RA, cachexia). No signs of overt dysphagia observed. Cannot rule out silent aspiration. Patient politely declined instrumental swallow testing.
Recommend:
1. Regular IDDSI 7 (pick softer/moister foods), Thin Liquids IDDSI 0
2. Medications: as best tolerated
3. Strategies: upright to 90 degrees, moisten foods, avoid dry/crumbly foods or very hard to chew foods, slow rate with breaks for breathing, strain mixed consistencies (soup with pieces, fruit cup, cereal with milk)
4. Oral care 3x daily
5. Brief dysphagia f/u to determine if further diet modifications warranted
--- NOTE | 2025-04-18 11:52 | PTCARENOTE ---
Plan discussed with team. Pt appropriate for downgrade to med surg per physicians, discussion in process with administration re: appropriate placement. Speech eval done, pt safe for regular diet, see therapist note. Pt remains AOx3, appropriately
conversational/anxious/tearful at times re: situation, emotional support ongoing to pt and family members. Daughter Paul remains at bedside. Care ongoing.
[2025-04-18] MEDS: NOVOLOG FLEXPEN-MODERATE RESISTANCE 1 UNITS SC (13:56)
[2025-04-18 14:06] LABS: Glucose - Point of Care 162 mg/dl (70-99)
[2025-04-18] MEDS: NON-FORMULARY ITEM 75 MG PO (15:06)
--- NOTE | 2025-04-18 16:41 | PTCARENOTE ---
No change in assessment this afternoon. Pt remains AOx3, using bipap with breaks PRN. Pt will not be able to go to med surg floor due to continuous bipap requirements as per ICU director/managers of tele unit. Pt is IMU level of care at this time.
Attending updated via TT.
[2025-04-18 17:06] LABS: Glucose - Point of Care 130 mg/dl (70-99)
[2025-04-18] MEDS: LOVENOX 30 MG SC (17:26)
--- NOTE | 2025-04-18 20:00 | PTCARENOTE ---
Assumed care of patient. She is resting comfortably in bed, aox4, follows commands, moves all extremities. She is afebrile. She is in NSR on the monitor, pulses are all palpable, no edema noted. Lungs are diminished throughout, she is currently on
4L NC with plans to go on Bipap tonight. Abdomen is soft, non-tender, bowel sounds positive. Continent to both bowel and bladder. Protective foams in place. IV site c/d/i.
[2025-04-18] MEDS: MELATONIN 5 MG PO (21:41)
[2025-04-18] MEDS: VALTREX 500 MG PO (21:41)
[2025-04-18] MEDS: ZOLOFT 50 MG PO (21:41)
[2025-04-18] MEDS: NON-FORMULARY ITEM 200 MG PO (21:42)
[2025-04-18 23:23] LABS: Glucose - Point of Care 128 mg/dl (70-99)
[2025-04-19] VITALS (18 sets, daily range): BP systolic 97–147; BP diastolic 65–96; PULSE 2–105; BMI 17.2
--- NOTE | 2025-04-19 01:01 | PTCARENOTE ---
No changes in patient assessment. She is awake visiting with daughter at this time.
--- NOTE | 2025-04-19 04:01 | PTCARENOTE ---
Patient sleeping on Bipap. No changes in assessment.
[2025-04-19] MEDS: DUONEB 3 ML INH ×4 (07:42→19:57)
[2025-04-19] MEDS: PULMICORT 0.5 MG INH ×2 (07:42→19:57)
[2025-04-19] MEDS: VITAMIN B-12 50 MCG PO (08:19)
[2025-04-19] MEDS: DECADRON 6 MG IV (08:20)
[2025-04-19] MEDS: AZULFIDINE 500 MG PO ×2 (08:20→20:43)
[2025-04-19] MEDS: RESTASIS 0.05% OPHTHALMIC EMULSION 1 DROPS BOTH EYES ×2 (08:20→20:43)
[2025-04-19] MEDS: NON-FORMULARY ITEM 20 MG PO ×2 (08:21→20:43)
[2025-04-19] MEDS: THERAGRAN 1 TABLET PO (08:21)
[2025-04-19] MEDS: VITAMIN D3 (cholecalciferol) 25 MCG PO (08:25)
[2025-04-19] MEDS: VITAMIN C 1000 MG PO (08:27)
--- NOTE | 2025-04-19 09:19 | W.PN.HOSP.TC ---
Today's Communication/Plan
-
BiPAP continuously with breaks as tolerated for eating/conversing
change steroid dosing to hopefully allow for better sleep
no other medication changes
encourage melatonin for sleep
appreciate pulm
Assessment / Plan
Assessment / Plan
Yvonne is a 74-year-old female with severe end-stage COPD, chronic hypercapnic respiratory failure, rheumatoid arthritis, paroxysmal atrial fibrillation, lymphedema presented to the ED with significant shortness of breath after being off BiPAP
for less than 16 hours while at home. Patient has had 4 hospitalizations for COPD exacerbations within the last 5 months.
##Acute on chronic severe COPD exacerbation
##End-Stage COPD
# Pulmonary cachexia
# 40+ year tobacco use history
Use of accessory muscles, unable to speak in full sentences, tachycardic, tachypnea. needing BiPAP during night and afternoons naps while at home.
- Admit to the ICU; remains in IMCU due to tenuous respiratory status
- Hold home dose oral prednisone; continue with IV Decadron
- Continue with home regimen of theophylline, azithromycin, Brovana/budesonide nebs, ipratropium albuterol nebulizers as needed, phosphodiesterase inhibitor, Spiriva
- continue morphine 0.5 mg IV as needed to help with air hunger
- Continue home dose of azithromycin 250 mg MWF
- infectious workup negative
-Patient is currently maxed out on symptomatic therapy, seen by multiple pulmonology specialists and declined lung transplant
- now needing BiPAP continuously, arterial blood gas demonstrate patient requires continuous BiPAP to maintain baseline pH
- Will continue with intermittent breaks, patient currently able to tolerate between 10 to 90 minutes off BiPAP
- cleared by speech for regular diet with moister food and smaller bites
Follow-up family meeting on 04/14 and 04/15 � initially agreeable to comfort care measures
04/16/2025 - 04/17/2025 - family now opting to continue with all medical care efforts in an attempt to allow patient to remain alive so that she can see her daughter after major surgery on 04/26, or few days thereafter. If the patient survives long
enough to see her daughter after surgery, she will then initiate comfort care/hospice.
#Acute on chronic hypercapnic/hypoxemic respiratory failure
- Chronic bipap and O2 use at home
- Now on near continuous BiPAP, see above
- Continue oxygen with goal spo2 88-92 %
#Insomnia
Likely from increasing BiPAP needs, end stage respiratory failure, hospital environment
- given Melatonin 5mg qhs
- Steroid dosing changed to 6mg IV QAM and 4mg QPM for better sleep quality
#Nonischemic Troponin Elevation
Most likely secondary to persistent tachycardia due to poor oxygenation as a consequence of end-stage COPD
- elevated troponin 0.038 w/o signs of ischemia on ECG
- Troponins peaked at 0.038
#Leukocytosis
Most likely iatrogenic as pt on chronic home prednisone for RA
- White count 12,300, mild left shift. Afebrile
- Increase productive cough MOLD HOLDER -- Chest x-ray is unremarkable
- COVID and flu negative
- less likely infectious at this time, continuing to monitor CBC/temp curve
#Paroxysmal atrial fibrillation
- on tele; tachycardic with irregular rhythm but no formal afib
- not on ac at this time
- Continue diltiazem
#H/o RA
Pt reports history of RA, had been on medication in the past, follows with rheum, planned to start new biologic prior to recent hospitalizations
- we are not allowed to start her on a new infectible medication during this hospital admission, especially not with all her other significant comorbidities and impending hospice
- we do not have Leflunomide on formulary, they may bring it from home if they wish
- we can continue her sulfasalazine
#Anxiety and depression
- Continue sertraline
#History of iron deficiency anemia
- History of iron infusions.
- TIBC wnl, Iron wnl, Ferritin wnl
DVT prophylaxis: Lovenox subcu
CODE STATUS: DNR
Anticipated Discharge: > 48 hours
Subjective/Interval History
-
Date of Service: April 19, 2025
no acute events overnight. had trouble sleeping again, concerned that it may be due to higher dose steroids at night. No new respiratory symptoms or change in oxygen requirements.
Objective Data
-
Vital Signs:
Vital Signs
Temp Pulse Resp BP Pulse Ox
98.3 F 94 21 109/74 98
04/19/25 07:21 04/19/25 09:00 04/19/25 09:00 04/19/25 08:00 04/19/25 08:00
I&O
04/18/25 04/19/25 04/20/25
06:59 06:59 06:59
Intake Total 960 / 960 480 / 480 250 / 250
Output Total 2625 / 2625 2100 / 2100 50 / 50
Balance -1665 / -1665 -1620 / -1620 200 / 200
Review of Systems
-
History Source: Patient
All other systems: Reviewed and negative
Respiratory: Reports Trouble Breathing
Physical Exam
-
General: No Apparent Distress, Comfortable, Appears Chronically Ill and Cachectic
HEENT: Normocephalic, Atraumatic, Moist Mucous Membranes, Anicteric, [place] Conjunctivae, PERRLA, Nose Appears Normal and Ears Appear Normal
Respiratory: Wheezes, Crackles, Accessory Resp Muscle Use and Other (on BiPAP); Negative Non Labored Respirations
Cardiac: S1/S2, Irregular Rhythm and Tachycardic; Negative Murmur
GI: Soft, Nontender, Nondistended and Normal Bowel Sounds
Rectal: Deferred by Provider
Genito-urinary: Deferred by me
Musculoskeletal: No Clubbing, No Cyanosis and No Edema
Skin: Warm, Dry and IV Access / Catheter Site
Neuro: AO x 3 and Nonfocal/Grossly Intact
Psych: Calm and Intact Judgement/Insight
--- NOTE | 2025-04-19 10:09 | PTCARENOTE ---
pt awake and alert co not able to sleep overnight , very talkative , continues on Bipap , her sats on bipap 98%-100% , NSR with PACs on monitor , BP 102/68 , Lungs are very decreased with expiratory wheezes , daughter at bedside and all
questions answered , plan of care is to wean down steroid at evening dose , maintain same treatments with goal of hospice at some point , family and patient is not ready to make that decision now , she was placed on 4L NC for 1 hour and 45 min and
tolerated well with sats of 99%
--- NOTE | 2025-04-19 10:49 | W.PN.PUL.V3 ---
Today's Communication / Plan
-
Supplemental oxygen
Supportive care with an emphasis on comfort
Decrease steroids
Updated family
Assessment
-
74-year-old female with previous history of severe end-stage COPD, chronic hypoxemic and hypercarbic respiratory failure on BiPAP, presenting to ER with worsening shortness of breath. She had been using her BiPAP nightly, noticed progressive
shortness of breath in less than 16 hours after usage. Was previously admitted and discharged on 03/24/2025, 02/22/2025, 12/28/2024, 11/14/2024 for similar. Hospice was discussed on previous hospitalizations but patient was not ready. She was placed
on morphine at home which was discontinued. On arrival ABG obtained with pH 7.33, pCO2 81, bicarb 42 satting 99%. She is placed on continuous BiPAP. She is a DNR. Admitted to ICU for tenuous respiratory status.
Acute on chronic hypoxic and hypercarbic respiratory failure
End-stage COPD with recurrent admissions
Acute on chronic shortness of breath
Pulmonary cachexia
Conditions present prior admission:
Advanced end-stage COPD: 4 L nasal cannula, noninvasive mechanical ventilation-chronic hypoxemic and hypercapnic respiratory failure
Up until recently followed at [facility]- Dr. Shi, she was denied transplant
PFT 12/2024: FEV1 was 0.34 ml / 19% predicted.
Former smoker, 40 PYs
Rheumatoid arthritis
Chronic anemia
Hypertension
Anxiety
Osteoporosis
Atrial Fibrillation
Plan
Patient has baseline severe COPD, end stage, on maximal medical therapy as out patient
Outpatient COPD regimen includes: Low-dose theophylline, Azithromycin for anti-inflammatory properties, Brovana/budesonide nebulizers, Ipratropium/albuterol nebulizers as needed, Ohtuvayre and Spiriva. Also been on chronic low-dose prednisone
therapy (5 mg PO bid) and was started on noninvasive mechanical ventilation 12/2024
She has been seen by [facility] and declined transplant
She is maintained on 4 L nasal cannula chronically at baseline
Respiratory status remains quite tenuous-overall BiPAP dependent with liberation for 2 to 3 hours here and there on nasal cannula
Incentive spirometry encouraged continue-no change
DuoNebs and budesonide continue
Continue steroids-decrease Decadron is contributing to insomnia
Daytime as needed
Chronic hypercapnic respiratory failure noted
At this point I do not think biologic such as Dupixent or other forms of noninvasive ventilation would ultimately be a 'game changer'
She does not wish to pursue tracheostomy tube/chronic ventilator facility
Diuresis continues as tolerated
Monitor renal function, electrolytes, intake/output, lower extremity edema and weight
Replace electrolytes as needed
Dr. Guevara had long discussion with patient and at the bedside 04/17/2025-she wishes to be comfortable, DNR, however, wants to be alive if at all possible through her daughter Marietta's tracheostomy revision surgery which is scheduled for
04/26/2025 at [facility].
She would like to continue with supportive care with an emphasis on comfort but not ready to go hospice or discontinue supportive care
Dr. Guevara had separate lengthy conversation with daughter and again 04/17/2025-they are all in agreement that comfort care/supportive care/not hospice is desired at this point until sister gets tracheostomy revision
Dr. Guevara had long conversation with patient, daughter, hospitalist-they want continued supportive care with emphasis on comfort, do not believe they could go home as they do not have enough help with her finances to hire help-continue to want
supportive care until couple days after other daughters tracheal surgery-emotional support provided
Dr. Guevara had conversation with patient and daughter at the bedside 04/19/2025-no change in supportive care with an emphasis on comfort
Discussions
04/13/25: She is currently DNR and would not want to proceed with trach and PEG; But yet previous discussions regarding hospice, patient reports that she is not ready. I discussed this extensively in front of the patient and the daughter that her
goals of care do not align and that she is lacking insight into her condition overall. She has demonstrated very poor quality of life with frequent hospitalizations. She meets all the criteria for end-stage COPD. It would be helpful if the family
were to support her mentally to except her lung condition. They were agreeable to repeat hospice consult, this is placed
I am not sure that she has a meaningful path to be discharged home safely if she is on nightly BiPAP and is unable to control CO2 levels. This may mean that she requires continuous BiPAP. The daughter understands, she notes that she has difficult
decision making at this time because her younger sister underwent trach and is having a surgery on 04/26. She wishes for her mother to be alive until then. I have implored the family to have meetings and to discuss her care.
04/14- Family mtg today including [facility], Dr Ferris, /patient/daughter via phone. Daughter is not ready to accept that her mother is dying or end stage, despite the fact that all the providers here are in agreement that this is her
prognosis. Patient has deferred her choice to her daughter. They wish to speak to Dr Guevara, we will notify him. This may need to involve ethics consult.
04/15- Family was receptive to comfort measures but still had not formally decided.
04/16-Daughter now states they want to check with insurance, wait for patient to sign paperwork/will, have her other daughter visit, and speak with Dr Guevara before they decide on comfort
They still wish for her to stay alive until 04/26. is asking repetitive questions that we reviewed before, he appears to lack insight into her condition completely.
Diagnostic Data
Chest X-Ray: 04/13/25- 1. Clear lungs. 2. No significant change compared to prior study.
CT Scan: CHEST 12/24/24- No evidence of central pulmonary embolism. Suspected changes of emphysema. Overall peripheral prominent size of pulmonary interstitial markings widespread bilaterally at least in part could be chronic. Acute interstitial
pneumonitis cannot be excluded. No focal parenchymal consolidation, pneumothorax or pleural effusion.
Echo: 11/14/24- Low normal LV systolic function with left ventricular ejection fraction estimated by Juarez's method 50% Normal left ventricular wall thickness Normal diastolic function. Normal atrial dimensions Aortic valve poorly visualized with
mildly thickened leaflets consistent with aortic sclerosis without stenosis. No significant aortic insufficiency. Trace mitral and tricuspid insufficiency Unable to estimate right heart pressures due to paucity of TR jet. No pericardial effusion
No prior study available for comparison
PFT's: 12/26/24- FEV1 was .034ml / 19% predicted. FVC was 1.67L / 73% predicted. Very severe obstruction.
Reports and relevant images were personally reviewed.
Subjective Data
-
Date of Service:
Date of Service: April 19, 2025
Chief Complaint: Pulmonary Follow Up and Dyspnea Follow Up
Subjective:
Slept better, tolerate BiPAP, no complaints of shortness of breath at rest, liberated for about 1-1/2 hours from BiPAP yesterday
Review of Systems
General: Other (Per HPI)
Objective Data
Data Reviewed
Vital Signs / I&O:
Vital Signs
Temp Pulse Resp BP Pulse Ox
98.3 F 86 23 109/74 99
04/19/25 07:21 04/19/25 10:00 04/19/25 10:00 04/19/25 08:00 04/19/25 10:00
Intake and Output
04/18/25 04/19/25 04/20/25
06:59 06:59 06:59
Intake Total 960 / 960 480 / 480 250 / 250
Output Total 2625 / 2625 2100 / 2100 50 / 50
Balance -1665 / -1665 -1620 / -1620 200 / 200
SaO2: 99
Nasal Cannula flow liters per minute: 4
Physical Exam
General: Respiratory Distress (n), Comfortable and Other (NAD)
HEENT: Normocephalic, Anicteric and Moist Mucous Membranes
Cardiovascular: Regular Rhythm
Respiratory: Clear (decreased BS BL) and Non-Labored Respirations
GI: Soft, Non Distended and Non Tender
Neurology: Awake, Alert and No Motor Deficits
Skin: Warm, Good Color, Cyanosis (n) and Jaundice (n)
Labs/Micro/Reports
Lab Data
04/18/25 02:26
04/18/25 02:26
--- NOTE | 2025-04-19 14:42 | PTCARENOTE ---
pt off of bipap from 0830 to 1330 , she remained on 4L NC with sats of 98% , she is currently oob in chair , tolerating well , family at bedside
--- NOTE | 2025-04-19 15:05 | CM ---
F/U: Patient still very sick with severe COPD so the likely plan is still Hospice. PLAN: TBD, Anticipate Inpatient Hospice.
[2025-04-19] MEDS: MIRALAX 17 GRAMS PO (16:21)
[2025-04-19] MEDS: METAMUCIL, KONSYL PO (16:21)
[2025-04-19] MEDS: LOVENOX 30 MG SC (17:19)
[2025-04-19] MEDS: NON-FORMULARY ITEM 75 MG PO (17:27)
--- NOTE | 2025-04-19 19:19 | PTCARENOTE ---
pt oob in chair , off of bipap from 16:30 to 19:00 , sats remained high 90s , she had one episode of tachycardia at 1845 up to 145-150 and she was then placed back to bed and recovered to HR of low 100s , in room , pt is encouraged to
conserve her energy and rest for tonight
[2025-04-19] MEDS: ZITHROMAX 250 MG PO (20:42)
[2025-04-19] MEDS: MELATONIN 5 MG PO (20:42)
[2025-04-19] MEDS: ZOLOFT 50 MG PO (20:42)
[2025-04-19] MEDS: VALTREX 500 MG PO (20:43)
[2025-04-19] MEDS: NON-FORMULARY ITEM 200 MG PO (20:43)
[2025-04-19 21:07] LABS: Glucose - Point of Care 131 mg/dl (70-99)
[2025-04-20] VITALS (12 sets, daily range): BP systolic 100–166; BP diastolic 37–89; PULSE 2–105; BMI 17.1
[2025-04-20] MEDS: DUONEB 3 ML INH ×5 (00:18→19:36)
--- NOTE | 2025-04-20 06:14 | PTCARENOTE ---
Assumed care at 1900. No acute events overnight. Tolerated bipap break from [id number] and [id number]. at bedside. Patient uses the bedside commode frequently overnight. See worklist for nursing assessment details.
[2025-04-20] MEDS: PULMICORT 0.5 MG INH ×2 (07:27→19:36)
[2025-04-20] MEDS: DECADRON 6 MG IV (08:30)
[2025-04-20] MEDS: AZULFIDINE 500 MG PO ×2 (08:32→20:10)
[2025-04-20] MEDS: METAMUCIL, KONSYL 1 PACKET PO (08:32)
[2025-04-20] MEDS: MUCINEX 600 MG PO (08:43)
[2025-04-20] MEDS: VITAMIN D3 (cholecalciferol) 25 MCG PO (08:43)
[2025-04-20] MEDS: RESTASIS 0.05% OPHTHALMIC EMULSION 1 DROPS BOTH EYES ×2 (08:43→20:11)
[2025-04-20] MEDS: TYLENOL 650 MG PO (08:43)
[2025-04-20] MEDS: VITAMIN C 1000 MG PO (08:49)
--- NOTE | 2025-04-20 10:35 | W.PN.PUL.V3 ---
Today's Communication / Plan
-
Continue supportive care with an emphasis of comfort
Home Ohtuvayre
Increase Mucinex
BiPAP liberation intermittently
Assessment
-
74-year-old female with previous history of severe end-stage COPD, chronic hypoxemic and hypercarbic respiratory failure on BiPAP, presenting to ER with worsening shortness of breath. She had been using her BiPAP nightly, noticed progressive
shortness of breath in less than 16 hours after usage. Was previously admitted and discharged on 03/24/2025, 02/22/2025, 12/28/2024, 11/14/2024 for similar. Hospice was discussed on previous hospitalizations but patient was not ready. She was placed
on morphine at home which was discontinued. On arrival ABG obtained with pH 7.33, pCO2 81, bicarb 42 satting 99%. She is placed on continuous BiPAP. She is a DNR. Admitted to ICU for tenuous respiratory status.
Acute on chronic hypoxic and hypercarbic respiratory failure
End-stage COPD with recurrent admissions
Acute on chronic shortness of breath
Pulmonary cachexia
Conditions present prior admission:
Advanced end-stage COPD: 4 L nasal cannula, noninvasive mechanical ventilation-chronic hypoxemic and hypercapnic respiratory failure
Up until recently followed at [facility]- Dr. Shi, she was denied transplant
PFT 12/2024: FEV1 was 0.34 ml / 19% predicted.
Former smoker, 40 PYs
Rheumatoid arthritis
Chronic anemia
Hypertension
Anxiety
Osteoporosis
Atrial Fibrillation
Plan
Patient has baseline severe COPD, end stage, on maximal medical therapy as out patient
Outpatient COPD regimen includes: Low-dose theophylline, Azithromycin for anti-inflammatory properties, Brovana/budesonide nebulizers, Ipratropium/albuterol nebulizers as needed, Ohtuvayre and Spiriva. Also been on chronic low-dose prednisone
therapy (5 mg PO bid) and was started on noninvasive mechanical ventilation 12/2024
She has been seen by [facility] and declined transplant
She is maintained on 4 L nasal cannula chronically at baseline
Respiratory status remains quite tenuous-overall BiPAP dependent with liberation for up to 4 hours intermittently
Incentive spirometry encouraged continue-no change
Mucinex
Home Ohtuvayre nebulizers
DuoNebs and budesonide continue
Decadron-no change
BiPAP continues at night and during the daytime as needed-usually liberated for total of 4 hours during the daytime intermittently
Chronic hypercapnic respiratory failure noted
Once again at this point I do not think biologic such as Dupixent or other forms of noninvasive ventilation would ultimately be a 'game changer'
She does not wish to pursue tracheostomy tube/chronic ventilator facility
Diuresis continues as tolerated
Monitor renal function, electrolytes, intake/output, lower extremity edema and weight
Replace electrolytes as needed
Dr. Guevara had long discussion with patient and at the bedside 04/17/2025-she wishes to be comfortable, DNR, however, wants to be alive if at all possible through her daughter Marietta's tracheostomy revision surgery which is scheduled for
04/26/2025 at [facility].
She would like to continue with supportive care with an emphasis on comfort but not ready to go hospice or discontinue supportive care
Dr. Guevara had separate lengthy conversation with daughter and again 04/17/2025-they are all in agreement that comfort care/supportive care/not hospice is desired at this point until sister gets tracheostomy revision
Dr. Guevara had long conversation with patient, daughter, hospitalist-they want continued supportive care with emphasis on comfort, do not believe they could go home as they do not have enough help with her finances to hire help-continue to want
supportive care until couple days after other daughters tracheal surgery-emotional support provided
Dr. Guevara had conversation with patient and daughter at the bedside 04/19/2025-no change in supportive care with an emphasis on comfort
Dr. Guevara updated at the bedside 04/20/2025
Discussions
04/13/25: She is currently DNR and would not want to proceed with trach and PEG; But yet previous discussions regarding hospice, patient reports that she is not ready. I discussed this extensively in front of the patient and the daughter that her
goals of care do not align and that she is lacking insight into her condition overall. She has demonstrated very poor quality of life with frequent hospitalizations. She meets all the criteria for end-stage COPD. It would be helpful if the family
were to support her mentally to except her lung condition. They were agreeable to repeat hospice consult, this is placed
I am not sure that she has a meaningful path to be discharged home safely if she is on nightly BiPAP and is unable to control CO2 levels. This may mean that she requires continuous BiPAP. The daughter understands, she notes that she has difficult
decision making at this time because her younger sister underwent trach and is having a surgery on 04/26. She wishes for her mother to be alive until then. I have implored the family to have meetings and to discuss her care.
04/14- Family mtg today including [facility], Dr Ferris, /patient/daughter via phone. Daughter is not ready to accept that her mother is dying or end stage, despite the fact that all the providers here are in agreement that this is her
prognosis. Patient has deferred her choice to her daughter. They wish to speak to Dr Guevara, we will notify him. This may need to involve ethics consult.
04/15- Family was receptive to comfort measures but still had not formally decided.
04/16-Daughter now states they want to check with insurance, wait for patient to sign paperwork/will, have her other daughter visit, and speak with Dr Guevara before they decide on comfort
They still wish for her to stay alive until 04/26. is asking repetitive questions that we reviewed before, he appears to lack insight into her condition completely.
Diagnostic Data
Chest X-Ray: 04/13/25- 1. Clear lungs. 2. No significant change compared to prior study.
CT Scan: CHEST 12/24/24- No evidence of central pulmonary embolism. Suspected changes of emphysema. Overall peripheral prominent size of pulmonary interstitial markings widespread bilaterally at least in part could be chronic. Acute interstitial
pneumonitis cannot be excluded. No focal parenchymal consolidation, pneumothorax or pleural effusion.
Echo: 11/14/24- Low normal LV systolic function with left ventricular ejection fraction estimated by Juarez's method 50% Normal left ventricular wall thickness Normal diastolic function. Normal atrial dimensions Aortic valve poorly visualized with
mildly thickened leaflets consistent with aortic sclerosis without stenosis. No significant aortic insufficiency. Trace mitral and tricuspid insufficiency Unable to estimate right heart pressures due to paucity of TR jet. No pericardial effusion
No prior study available for comparison
PFT's: 12/26/24- FEV1 was .034ml / 19% predicted. FVC was 1.67L / 73% predicted. Very severe obstruction.
Reports and relevant images were personally reviewed.
Subjective Data
-
Date of Service:
Date of Service: April 20, 2025
Chief Complaint: Pulmonary Follow Up and Dyspnea Follow Up
Subjective:
Feels like there is increased thick mucus, some wheezing, tolerated BiPAP, no chest pain or abdominal pain
Review of Systems
General: Other (Per HPI)
Objective Data
Data Reviewed
Vital Signs / I&O:
Vital Signs
Temp Pulse Resp BP Pulse Ox
98.0 F 103 20 102/60 97
04/20/25 05:00 04/20/25 07:31 04/20/25 07:31 04/20/25 04:00 04/20/25 07:31
Intake and Output
04/19/25 04/20/25 04/21/25
06:59 06:59 06:59
Intake Total 480 / 480 980 / 980
Output Total 2100 / 2100 1850 / 1850
Balance -1620 / -1620 -870 / -870
SaO2: 97
Nasal Cannula flow liters per minute: 4
Physical Exam
General: Respiratory Distress (n), Comfortable and Other (NAD)
HEENT: Normocephalic, Anicteric and Moist Mucous Membranes
Cardiovascular: Regular Rhythm
Respiratory: Clear (decreased BS BL) and Non-Labored Respirations
GI: Soft, Non Distended and Non Tender
Neurology: Awake, Alert and No Motor Deficits
Skin: Warm, Good Color, Cyanosis (n) and Jaundice (n)
Labs/Micro/Reports
Lab Data
04/18/25 02:26
04/18/25 02:26
--- NOTE | 2025-04-20 11:44 | W.PN.HOSP.TC ---
Today's Communication/Plan
-
stable
continue with BiPAP, breaks as tolerated
scheduled mucinex 1200 q12 with prn, suction as needed
ok for home fiber supplement as desired
Assessment / Plan
Assessment / Plan
Yvonne is a 74-year-old female with severe end-stage COPD, chronic hypercapnic respiratory failure, rheumatoid arthritis, paroxysmal atrial fibrillation, lymphedema presented to the ED with significant shortness of breath after being off BiPAP
for less than 16 hours while at home. Patient has had 4 hospitalizations for COPD exacerbations within the last 5 months.
##Acute on chronic severe COPD exacerbation
##End-Stage COPD
# Pulmonary cachexia
# 40+ year tobacco use history
Use of accessory muscles, unable to speak in full sentences, tachycardic, tachypnea. needing BiPAP during night and afternoons naps while at home.
- Admit to the ICU; remains in IMCU due to tenuous respiratory status
- Hold home dose oral prednisone; continue with IV Decadron
- Continue with home regimen of theophylline, azithromycin, Brovana/budesonide nebs, ipratropium albuterol nebulizers as needed, phosphodiesterase inhibitor, Spiriva
- continue morphine 0.5 mg IV as needed to help with air hunger
- Continue home dose of azithromycin 250 mg MWF
- infectious workup negative
-Patient is currently maxed out on symptomatic therapy, seen by multiple pulmonology specialists and declined lung transplant
- now needing BiPAP continuously, arterial blood gas demonstrate patient requires continuous BiPAP to maintain baseline pH
- Will continue with intermittent breaks, patient currently able to tolerate between 10 to 90 minutes off BiPAP
- cleared by speech for regular diet with moister food and smaller bites
Follow-up family meeting on 04/14 and 04/15 � initially agreeable to comfort care measures
04/16/2025 - 04/17/2025 - family now opting to continue with all medical care efforts in an attempt to allow patient to remain alive so that she can see her daughter after major surgery on 12/17, or few days thereafter. If the patient survives long
enough to see her daughter after surgery, she will then initiate comfort care/hospice.
#Acute on chronic hypercapnic/hypoxemic respiratory failure
- Chronic bipap and O2 use at home
- Now on near continuous BiPAP, see above
- Continue oxygen with goal spo2 88-92 %
#Insomnia
Likely from increasing BiPAP needs, end stage respiratory failure, hospital environment
- given Melatonin 5mg qhs
- Steroid dosing changed to 6mg IV QAM and 4mg QPM for better sleep quality
#Nonischemic Troponin Elevation
Most likely secondary to persistent tachycardia due to poor oxygenation as a consequence of end-stage COPD
- elevated troponin 0.038 w/o signs of ischemia on ECG
- Troponins peaked at 0.038
#Leukocytosis
Most likely iatrogenic as pt on chronic home prednisone for RA
- White count 12,300, mild left shift. Afebrile
- Increase productive cough [employer] -- Chest x-ray is unremarkable
- COVID and flu negative
- less likely infectious at this time, continuing to monitor CBC/temp curve
#Paroxysmal atrial fibrillation
- on tele; tachycardic with irregular rhythm but no formal afib
- not on ac at this time
- Continue diltiazem
#H/o RA
Pt reports history of RA, had been on medication in the past, follows with rheum, planned to start new biologic prior to recent hospitalizations
- we are not allowed to start her on a new infectible medication during this hospital admission, especially not with all her other significant comorbidities and impending hospice
- we do not have Leflunomide on formulary, they may bring it from home if they wish
- we can continue her sulfasalazine
#Anxiety and depression
- Continue sertraline
#History of iron deficiency anemia
- History of iron infusions.
- TIBC wnl, Iron wnl, Ferritin wnl
DVT prophylaxis: Lovenox subcu
CODE STATUS: DNR
Anticipated Discharge: > 48 hours
Subjective/Interval History
-
Date of Service: April 20, 2025
no acute events overnight. having some mucus secretions. remains on continuous bipap with short breaks to eat.
Objective Data
-
Vital Signs:
Vital Signs
Temp Pulse Resp BP Pulse Ox
98.0 F 102 22 133/65 96
04/20/25 05:00 04/20/25 10:46 04/20/25 10:46 04/20/25 10:00 04/20/25 10:46
I&O
04/19/25 04/20/25 04/21/25
06:59 06:59 06:59
Intake Total 480 / 480 980 / 980
Output Total 2100 / 2100 1850 / 1850
Balance -1620 / -1620 -870 / -870
Review of Systems
-
History Source: Patient
All other systems: Reviewed and negative
Constitutional: Reports No Symptoms
EENT: Reports No Symptoms Reported
Respiratory: Reports Trouble Breathing and Wheezing; Denies Cough or Hemoptysis
Cardiac: Reports No Symptoms
Abdomen/GI: Reports No Symptoms
Genitourinary: Reports No Symptoms
Musculoskeletal: Reports No Symptoms
Skin: Reports No Symptoms
Neuro: Reports No Symptoms
Endocrine: Reports No Symptoms
Hematologic / Lymphatic: Reports No Symptoms
Physical Exam
-
General: No Apparent Distress, Comfortable, Appears Chronically Ill and Cachectic
HEENT: Normocephalic, Atraumatic, Moist Mucous Membranes, Anicteric, [place] Conjunctivae, No Ptosis, PERRLA, Nose Appears Normal and Ears Appear Normal
Respiratory: Wheezes, Crackles and Accessory Resp Muscle Use; Negative Rales, Rhonchi or Non Labored Respirations
Cardiac: Regular Rhythm, S1/S2 and Tachycardic; Negative Murmur or Rub
GI: Soft, Nontender, Nondistended and Normal Bowel Sounds
Rectal: Deferred by Provider
Genito-urinary: Deferred by me
Musculoskeletal: No Clubbing, No Cyanosis and No Edema
Skin: Warm, Dry and IV Access / Catheter Site
Neuro: AO x 3 and Nonfocal/Grossly Intact
Psych: Calm and Intact Judgement/Insight
--- NOTE | 2025-04-20 12:14 | PTCARENOTE ---
assumed care 0700 patient in bed. AAO x 3; Sinus Tachycardia 103 to Normal Sinus Rhythm 91; on BIPAP 18/8/4L. BIPAP off with 4L via nasal canula . Transfer to chair supervision. Voiding on bedside commode. Small bowel movement
[2025-04-20] MEDS: MUCINEX PO (13:08)
[2025-04-20 13:33] LABS: Glucose - Point of Care 107 mg/dl (70-99)
[2025-04-20] MEDS: DECADRON 4 MG IV (18:22)
[2025-04-20] MEDS: LOVENOX 30 MG SC (18:23)
[2025-04-20] MEDS: VALTREX 500 MG PO (20:10)
[2025-04-20] MEDS: MELATONIN 5 MG PO (20:10)
[2025-04-20] MEDS: ZOLOFT 50 MG PO (20:11)
[2025-04-20] MEDS: MUCINEX 1200 MG PO (20:11)
[2025-04-20] MEDS: NON-FORMULARY ITEM 200 MG PO (20:11)
--- NOTE | 2025-04-20 22:35 | PTCARENOTE ---
assumed care of pt from jose RN. pt is aaox3. at bedside. pt wearing bipap at all times beside eating and meds. pt tolerating mask well. satting 95-99%. assessment as documented. call light in reach.
[2025-04-21] VITALS (16 sets, daily range): BP systolic 98–143; BP diastolic 54–124; PULSE 2–83; BMI 17.0
[2025-04-21] MEDS: NON-FORMULARY ITEM 75 MG PO ×2 (00:26→21:02)
[2025-04-21] MEDS: DUONEB 3 ML INH ×5 (00:36→19:27)
[2025-04-21] MEDS: PULMICORT 0.5 MG INH ×2 (07:33→19:27)
[2025-04-21] MEDS: METAMUCIL, KONSYL 1 PACKET PO (08:16)
[2025-04-21] MEDS: MUCINEX 1200 MG PO ×2 (08:16→20:59)
[2025-04-21] MEDS: THERAGRAN 1 TABLET PO (08:17)
[2025-04-21] MEDS: AZULFIDINE 500 MG PO ×2 (08:17→20:58)
[2025-04-21] MEDS: RESTASIS 0.05% OPHTHALMIC EMULSION 1 DROPS BOTH EYES ×2 (08:17→20:58)
[2025-04-21] MEDS: DECADRON 6 MG IV (08:17)
[2025-04-21] MEDS: NON-FORMULARY ITEM 20 MG PO (08:20)
[2025-04-21] MEDS: VITAMIN B-12 50 MCG PO (08:21)
[2025-04-21] MEDS: TYLENOL 650 MG PO ×2 (08:37→20:56)
[2025-04-21] MEDS: VITAMIN D3 (cholecalciferol) 25 MCG PO (08:38)
[2025-04-21] MEDS: VITAMIN C 1000 MG PO (08:38)
--- NOTE | 2025-04-21 10:22 | W.PN.PUL.V3 ---
Today's Communication / Plan
-
Continue oxygen
Continue BiPAP at night and during the daytime as needed
No change in Decadron
Continue supportive care with an emphasis on comfort
Assessment
-
74-year-old female with previous history of severe end-stage COPD, chronic hypoxemic and hypercarbic respiratory failure on BiPAP, presenting to ER with worsening shortness of breath. She had been using her BiPAP nightly, noticed progressive
shortness of breath in less than 16 hours after usage. Was previously admitted and discharged on 03/24/2025, 02/22/2025, 12/28/2024, 11/14/2024 for similar. Hospice was discussed on previous hospitalizations but patient was not ready. She was placed
on morphine at home which was discontinued. On arrival ABG obtained with pH 7.33, pCO2 81, bicarb 42 satting 99%. She is placed on continuous BiPAP. She is a DNR. Admitted to ICU for tenuous respiratory status.
Acute on chronic hypoxic and hypercarbic respiratory failure
End-stage COPD with recurrent admissions
Acute on chronic shortness of breath
Pulmonary cachexia
Conditions present prior admission:
Advanced end-stage COPD: 4 L nasal cannula, noninvasive mechanical ventilation-chronic hypoxemic and hypercapnic respiratory failure
Up until recently followed at [facility]- Dr. Shi, she was denied transplant
PFT 12/2024: FEV1 was 0.34 ml / 19% predicted.
Former smoker, 40 PYs
Rheumatoid arthritis
Chronic anemia
Hypertension
Anxiety
Osteoporosis
Atrial Fibrillation
Plan
Patient has baseline severe COPD, end stage, on maximal medical therapy as out patient-4 hospitalizations in the last 6 months
Outpatient COPD regimen includes: Low-dose theophylline, Azithromycin for anti-inflammatory properties, Brovana/budesonide nebulizers, Ipratropium/albuterol nebulizers as needed, Ohtuvayre and Spiriva. Also been on chronic low-dose prednisone
therapy (5 mg PO bid) and was started on noninvasive mechanical ventilation 12/2024
She has been seen by Darshan and declined transplant
She is maintained on 4 L nasal cannula chronically at baseline
Respiratory status remains quite tenuous-overall BiPAP dependent with liberation for up to 4-6 hours intermittently throughout the daytime
Incentive spirometry encouraged continue-no change
Mucinex continues
Home Ohtuvayre nebulizers will begin at family request 04/21/2025-told them I do not think it will be a 'game changer'
DuoNebs and budesonide continue
Decadron-no change for now
BiPAP continues at night and during the daytime as needed-usually liberated for total of 4 hours during the daytime intermittently
Chronic hypercapnic respiratory failure noted
We discussed biologics such as Dupixent or other forms of noninvasive ventilation would ultimately be a 'game changer'
She does not wish to pursue tracheostomy tube/chronic ventilator facility
Diuresis continues as tolerated
Monitor renal function, electrolytes, intake/output, lower extremity edema and weight
Replace electrolytes as needed
Continue supportive care with an emphasis on comfort, DNR, and likely will want comfort care and potentially hospice soon after daughter has tracheal surgery at [facility] 04/26/[address] Guevara had long discussion with patient and at the bedside 04/17/2025-she wishes to be comfortable, DNR, however, wants to be alive if at all possible through her daughter Marietta's tracheostomy revision surgery which is scheduled for
04/26/2025 at [facility].
She would like to continue with supportive care with an emphasis on comfort but not ready to go hospice or discontinue supportive care
Dr. Geuvara had separate lengthy conversation with daughter and again 04/17/2025-they are all in agreement that comfort care/supportive care/not hospice is desired at this point until sister gets tracheostomy revision
Dr. Guevara had long conversation with patient, daughter, hospitalist-they want continued supportive care with emphasis on comfort, do not believe they could go home as they do not have enough help with her finances to hire help-continue to want
supportive care until couple days after other daughters tracheal surgery-emotional support provided
Dr. Guevara had conversation with patient and daughter at the bedside 04/19/2025-no change in supportive care with an emphasis on comfort
Dr. Guevara updated at the bedside 04/20/2025 as well as 04/21/2025
Discussions
04/13/25: She is currently DNR and would not want to proceed with trach and PEG; But yet previous discussions regarding hospice, patient reports that she is not ready. I discussed this extensively in front of the patient and the daughter that her
goals of care do not align and that she is lacking insight into her condition overall. She has demonstrated very poor quality of life with frequent hospitalizations. She meets all the criteria for end-stage COPD. It would be helpful if the family
were to support her mentally to except her lung condition. They were agreeable to repeat hospice consult, this is placed
I am not sure that she has a meaningful path to be discharged home safely if she is on nightly BiPAP and is unable to control CO2 levels. This may mean that she requires continuous BiPAP. The daughter understands, she notes that she has difficult
decision making at this time because her younger sister underwent trach and is having a surgery on 04/26. She wishes for her mother to be alive until then. I have implored the family to have meetings and to discuss her care.
04/14- Family mtg today including Diamond, Dr Ferris, /patient/daughter via phone. Daughter is not ready to accept that her mother is dying or end stage, despite the fact that all the providers here are in agreement that this is her
prognosis. Patient has deferred her choice to her daughter. They wish to speak to Dr Guevara, we will notify him. This may need to involve ethics consult.
04/15- Family was receptive to comfort measures but still had not formally decided.
04/16-Daughter now states they want to check with insurance, wait for patient to sign paperwork/will, have her other daughter visit, and speak with Dr Guevara before they decide on comfort
They still wish for her to stay alive until 04/26. is asking repetitive questions that we reviewed before, he appears to lack insight into her condition completely.
Diagnostic Data
Chest X-Ray: 04/13/25- 1. Clear lungs. 2. No significant change compared to prior study.
CT Scan: CHEST 12/24/24- No evidence of central pulmonary embolism. Suspected changes of emphysema. Overall peripheral prominent size of pulmonary interstitial markings widespread bilaterally at least in part could be chronic. Acute interstitial
pneumonitis cannot be excluded. No focal parenchymal consolidation, pneumothorax or pleural effusion.
Echo: 11/14/24- Low normal LV systolic function with left ventricular ejection fraction estimated by Juarez's method 50% Normal left ventricular wall thickness Normal diastolic function. Normal atrial dimensions Aortic valve poorly visualized with
mildly thickened leaflets consistent with aortic sclerosis without stenosis. No significant aortic insufficiency. Trace mitral and tricuspid insufficiency Unable to estimate right heart pressures due to paucity of TR jet. No pericardial effusion
No prior study available for comparison
PFT's: 12/26/24- FEV1 was .034ml / 19% predicted. FVC was 1.67L / 73% predicted. Very severe obstruction.
Reports and relevant images were personally reviewed.
Subjective Data
-
Date of Service:
Date of Service: April 21, 2025
Chief Complaint: Pulmonary Follow Up and Dyspnea Follow Up
Subjective:
Slept better, tolerated BiPAP, wheezing somewhat improved, tolerated off BiPAP total 5-6 hours yesterday
Review of Systems
General: Other (Per HPI )
Objective Data
Data Reviewed
Vital Signs / I&O:
Vital Signs
Temp Pulse Resp BP Pulse Ox
98.0 F 82 16 101/70 98
04/21/25 03:05 04/21/25 07:37 04/21/25 07:37 04/21/25 04:00 04/21/25 07:37
Intake and Output
04/20/25 04/21/25 04/22/25
06:59 06:59 06:59
Intake Total 980 / 980 240 / 240
Output Total 1850 / 1850 200 / 200
Balance -870 / -870 40 / 40
SaO2: 98
Nasal Cannula flow liters per minute: 4
Physical Exam
General: Respiratory Distress (n), Comfortable and Other (NAD)
HEENT: Normocephalic, Anicteric and Moist Mucous Membranes
Cardiovascular: Regular Rhythm
Respiratory: Clear (decreased BS BL) and Non-Labored Respirations
GI: Soft, Non Distended and Non Tender
Neurology: Awake, Alert and No Motor Deficits
Skin: Warm, Good Color, Cyanosis (n) and Jaundice (n)
Labs/Micro/Reports
Lab Data
04/18/25 02:26
04/18/25 02:26
--- NOTE | 2025-04-21 11:17 | W.PN.HOSP.TC ---
Today's Communication/Plan
-
c/w current medications
supportive care with an emphasis on comfort
appreciate pulm
Assessment / Plan
Assessment / Plan
Yvonne is a 74-year-old female with severe end-stage COPD, chronic hypercapnic respiratory failure, rheumatoid arthritis, paroxysmal atrial fibrillation, lymphedema presented to the ED with significant shortness of breath after being off BiPAP
for less than 16 hours while at home. Patient has had 4 hospitalizations for COPD exacerbations within the last 5 months.
##Acute on chronic severe COPD exacerbation
##End-Stage COPD
# Pulmonary cachexia
# 40+ year tobacco use history
Use of accessory muscles, unable to speak in full sentences, tachycardic, tachypnea. needing BiPAP during night and afternoons naps while at home.
- Admit to the ICU; remains in IMCU due to tenuous respiratory status
- Hold home dose oral prednisone; continue with IV Decadron
- Continue with home regimen of theophylline, azithromycin, Brovana/budesonide nebs, ipratropium albuterol nebulizers as needed, phosphodiesterase inhibitor, Spiriva
- continue morphine 0.5 mg IV as needed to help with air hunger
- Continue home dose of azithromycin 250 mg MWF
- infectious workup negative
-Patient is currently maxed out on symptomatic therapy, seen by multiple pulmonology specialists and declined lung transplant
- now needing BiPAP continuously, arterial blood gas demonstrate patient requires continuous BiPAP to maintain baseline pH
- Will continue with intermittent breaks, patient currently able to tolerate between 10 to 90 minutes off BiPAP
- cleared by speech for regular diet with moister food and smaller bites
Follow-up family meeting on 04/14 and 04/15 � initially agreeable to comfort care measures
04/16/2025 - 04/17/2025 - family now opting to continue with all medical care efforts in an attempt to allow patient to remain alive so that she can see her daughter after major surgery on 04/26, or few days thereafter. If the patient survives long
enough to see her daughter after surgery, she will then initiate comfort care/hospice.
#Acute on chronic hypercapnic/hypoxemic respiratory failure
- Chronic bipap and O2 use at home
- Now on near continuous BiPAP, see above
- Continue oxygen with goal spo2 88-92 %
#Insomnia
Likely from increasing BiPAP needs, end stage respiratory failure, hospital environment
- given Melatonin 5mg qhs
- Steroid dosing changed to 6mg IV QAM and 4mg QPM for better sleep quality
#Nonischemic Troponin Elevation
Most likely secondary to persistent tachycardia due to poor oxygenation as a consequence of end-stage COPD
- elevated troponin 0.038 w/o signs of ischemia on ECG
- Troponins peaked at 0.038
#Leukocytosis
Most likely iatrogenic as pt on chronic home prednisone for RA
- White count 12,300, mild left shift. Afebrile
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
- COVID and flu negative
- less likely infectious at this time, continuing to monitor CBC/temp curve
#Paroxysmal atrial fibrillation
- on tele; tachycardic with irregular rhythm but no formal afib
- not on ac at this time
- Continue diltiazem
#H/o RA
Pt reports history of RA, had been on medication in the past, follows with rheum, planned to start new biologic prior to recent hospitalizations
- we are not allowed to start her on a new infectible medication during this hospital admission, especially not with all her other significant comorbidities and impending hospice
- we do not have Leflunomide on formulary, they may bring it from home if they wish
- we can continue her sulfasalazine
#Anxiety and depression
- Continue sertraline
#History of iron deficiency anemia
- History of iron infusions.
- TIBC wnl, Iron wnl, Ferritin wnl
DVT prophylaxis: Lovenox subcu
CODE STATUS: DNR
Anticipated Discharge: > 48 hours
Subjective/Interval History
-
Date of Service: April 21, 2025
no acute events overnight. stable symptom-moya. no concerns per patient or family.
Objective Data
-
Vital Signs:
Vital Signs
Temp Pulse Resp BP Pulse Ox
98.0 F 104 24 136/124 98
04/21/25 03:05 04/21/25 11:00 04/21/25 11:00 04/21/25 10:00 04/21/25 10:22
I&O
04/20/25 04/21/25 04/22/25
06:59 06:59 06:59
Intake Total 980 / 980 240 / 240
Output Total 1850 / 1850 200 / 200
Balance -870 / -870 40 / 40
Review of Systems
-
History Source: Patient
All other systems: Reviewed and negative
Constitutional: Reports No Symptoms
EENT: Reports No Symptoms Reported
Respiratory: Reports Trouble Breathing and Wheezing
Cardiac: Reports No Symptoms
Abdomen/GI: Reports No Symptoms
Genitourinary: Reports No Symptoms
Musculoskeletal: Reports No Symptoms
Skin: Reports No Symptoms
Neuro: Reports No Symptoms
Endocrine: Reports No Symptoms
Physical Exam
-
General: No Apparent Distress, Comfortable, Conversant, Appears Chronically Ill and Cachectic
HEENT: Normocephalic, Atraumatic, Moist Mucous Membranes, Anicteric, [place] Conjunctivae, No Ptosis, PERRLA, Nose Appears Normal, Ears Appear Normal and Oxygen
Respiratory: Wheezes, Crackles and Accessory Resp Muscle Use; Negative Rales or Rhonchi
Cardiac: Regular Rhythm and S1/S2; Negative Murmur
Breast: Deferred by me
GI: Soft, Nontender, Nondistended and Normal Bowel Sounds
Rectal: Deferred by Provider
Genito-urinary: Deferred by me
Musculoskeletal: No Clubbing, No Cyanosis and No Edema
Skin: Warm, Dry and IV Access / Catheter Site
Neuro: AO x 3
Psych: Calm
--- NOTE | 2025-04-21 15:51 | PTCARENOTE ---
Rec'd pt this AM. Pt enjoyed visit with friend and spent several hours off bipap mask. She said she felt OK and wanted to be able to talk freely with her friend without the mask. Pt did express to RN her concern for her family given her end stage
COPD and likely transition to end of life care in the near future. She is very worried about leaving them and how they will cope. Anxious about her daughter's surgery and expressed concern that her and oldest daughter currently do not get
along. RN contacted pastoral care and Veena Tracy came to see pt and spouse at bedside. Pt reported that she enjoyed the visit as did her spouse. RN continues to provide emotional support to pt.
--- NOTE | 2025-04-21 16:37 | CM ---
F/U: Patient still very sick with severe COPD. Hospitalist state that the plan is to transition to hospice though preference is to survive long enough to see her daughter surgery (04/26) and make sure she is okay. PLAN: Inpatient Hospice.
[2025-04-21] MEDS: DECADRON 4 MG IV (17:57)
[2025-04-21] MEDS: LOVENOX 30 MG SC (17:57)
[2025-04-21] MEDS: ZITHROMAX 250 MG PO (20:58)
[2025-04-21] MEDS: MELATONIN 5 MG PO (20:59)
[2025-04-21] MEDS: NON-FORMULARY ITEM 200 MG PO (21:00)
[2025-04-21] MEDS: VALTREX 500 MG PO (21:00)
[2025-04-21] MEDS: ZOLOFT 50 MG PO (21:01)
[2025-04-21] MEDS: LIDOCAINE 4% PATCH 1 PATCH TOPICAL ×2 (21:49→21:50)
[2025-04-22] VITALS (18 sets, daily range): BP systolic 83–153; BP diastolic 57–85; PULSE 2–110; BMI 17.4
--- NOTE | 2025-04-22 03:00 | PTCARENOTE ---
1900: care assumed. plan of care reviewed with pt. Family at the bedside, supportive toward the pt. All personal belongings and call colon within reach. bed in the lowest position, AAAA.
[2025-04-22] MEDS: PULMICORT 0.5 MG INH ×2 (07:31→19:50)
[2025-04-22] MEDS: DUONEB 3 ML INH ×4 (07:31→19:50)
[2025-04-22] MEDS: NON-FORMULARY ITEM 3 UNIT INH ×2 (07:33→19:50)
--- NOTE | 2025-04-22 08:05 | W.PN.HOSP.TC ---
Today's Communication/Plan
-
Continue with supportive care
Assessment / Plan
Assessment / Plan
Yvonne is a 74-year-old female with severe end-stage COPD, chronic hypercapnic respiratory failure, rheumatoid arthritis, paroxysmal atrial fibrillation, lymphedema presented to the ED with significant shortness of breath after being off BiPAP
for less than 16 hours while at home. Patient has had 4 hospitalizations for COPD exacerbations within the last 5 months.
##Acute on chronic severe COPD exacerbation
##End-Stage COPD
# Pulmonary cachexia
# 40+ year tobacco use history
Use of accessory muscles, unable to speak in full sentences, tachycardic, tachypnea. needing BiPAP during night and afternoons naps while at home.
- Admit to the ICU; remains in IMCU due to tenuous respiratory status
- Hold home dose oral prednisone; continue with IV Decadron
- Continue with home regimen of theophylline, azithromycin, Brovana/budesonide nebs, ipratropium albuterol nebulizers as needed, phosphodiesterase inhibitor, Spiriva
- continue morphine 0.5 mg IV as needed to help with air hunger
- Continue home dose of azithromycin 250 mg MWF
- infectious workup negative
-Patient is currently maxed out on symptomatic therapy, seen by multiple pulmonology specialists and declined lung transplant
- now needing BiPAP continuously, arterial blood gas demonstrate patient requires continuous BiPAP to maintain baseline pH
- Will continue with intermittent breaks, patient currently able to tolerate between 10 to 90 minutes off BiPAP
- cleared by speech for regular diet with moister food and smaller bites
Follow-up family meeting on 04/14 and 04/15 � initially agreeable to comfort care measures
04/16/2025 - 04/17/2025 - family now opting to continue with all medical care efforts in an attempt to allow patient to remain alive so that she can see her daughter after major surgery on 04/26, or few days thereafter. If the patient survives long
enough to see her daughter after surgery, she will then initiate comfort care/hospice.
#Acute on chronic hypercapnic/hypoxemic respiratory failure
- Chronic bipap and O2 use at home
- Now on near continuous BiPAP, see above
- Continue oxygen with goal spo2 88-92 %
#Insomnia
Likely from increasing BiPAP needs, end stage respiratory failure, hospital environment
- given Melatonin 5mg qhs
- Steroid dosing changed to 6mg IV QAM and 4mg QPM for better sleep quality
#Nonischemic Troponin Elevation
Most likely secondary to persistent tachycardia due to poor oxygenation as a consequence of end-stage COPD
- elevated troponin 0.038 w/o signs of ischemia on ECG
- Troponins peaked at 0.038
#Leukocytosis
Most likely iatrogenic as pt on chronic home prednisone for RA
- White count 12,300, mild left shift. Afebrile
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
- COVID and flu negative
- less likely infectious at this time, continuing to monitor CBC/temp curve
#Paroxysmal atrial fibrillation
- on tele; tachycardic with irregular rhythm but no formal afib
- not on ac at this time
- Continue diltiazem
#H/o RA
Pt reports history of RA, had been on medication in the past, follows with rheum, planned to start new biologic prior to recent hospitalizations
- we are not allowed to start her on a new infectible medication during this hospital admission, especially not with all her other significant comorbidities and impending hospice
- we do not have Leflunomide on formulary, they may bring it from home if they wish
- we can continue her sulfasalazine
#Anxiety and depression
- Continue sertraline
#History of iron deficiency anemia
- History of iron infusions.
- TIBC wnl, Iron wnl, Ferritin wnl
DVT prophylaxis: Lovenox subcu
CODE STATUS: DNR
Discussed with pulmonology
Anticipated Discharge: > 48 hours
Subjective/Interval History
-
Date of Service: April 22, 2025
Seen and examined at the bedside. No acute events reported overnight. Remains BiPAP dependent, AFVSS otherwise
Denies any new complaints today. Requests VBG, TIBC, and ferritin checked
Remains comfortable off BiPAP for roughly 30 to 60 minutes at a time
Objective Data
-
Vital Signs:
Vital Signs
Temp Pulse Resp BP Pulse Ox
98.1 F 78 20 105/66 98
04/22/25 07:53 04/22/25 07:34 04/22/25 07:34 04/22/25 04:00 04/22/25 07:34
I&O
04/21/25 04/22/25 04/23/25
06:59 06:59 06:59
Intake Total 240 / 240 120 / 120
Output Total 200 / 200
Balance 40 / 40 120 / 120
Review of Systems
-
History Source: Patient
All other systems: Reviewed and negative
Physical Exam
-
General: Well Developed, No Apparent Distress, Appears Chronically Ill and Cachectic
HEENT: Normocephalic, Atraumatic, Moist Mucous Membranes and Anicteric
Respiratory: Wheezes and Non Labored Respirations; Negative Rales, Rhonchi or Accessory Resp Muscle Use
Cardiac: Regular Rhythm and S1/S2; Negative Murmur, Rub or Gallop
GI: Soft, Nontender, Nondistended and Normal Bowel Sounds
Musculoskeletal: No Clubbing, No Cyanosis and No Edema
Skin: Warm and Dry; Negative Rash
Neuro: AO x 3, Nonfocal/Grossly Intact and Central Nerve's Intact; Negative Tremors
Psych: Calm
[2025-04-22] MEDS: MUCINEX 1200 MG PO ×2 (08:45→21:12)
[2025-04-22] MEDS: AZULFIDINE 500 MG PO ×2 (08:45→21:14)
[2025-04-22] MEDS: RESTASIS 0.05% OPHTHALMIC EMULSION 1 DROPS BOTH EYES ×2 (08:45→21:16)
[2025-04-22] MEDS: DECADRON 6 MG IV (08:46)
[2025-04-22] MEDS: NON-FORMULARY ITEM 20 MG PO (08:47)
[2025-04-22] MEDS: NON-FORMULARY ITEM 1000 MG PO (08:48)
[2025-04-22] MEDS: VITAMIN C 1000 MG PO (09:00)
[2025-04-22] MEDS: VITAMIN D3 (cholecalciferol) 25 MCG PO (09:00)
--- NOTE | 2025-04-22 11:43 | HOSPNOTE ---
Hospice has been following in the distance. No official referral received. Reviewed notes. Hospice remains available if and when patient becomes ready.
--- NOTE | 2025-04-22 15:54 | W.PN.PUL3 ---
Today's Communication / Plan
-
Continue oxygen
Continue BiPAP at night and during the daytime as needed
No change in Decadron
Continue supportive care with an emphasis on comfort
Assessment
-
74-year-old female with previous history of severe end-stage COPD, chronic hypoxemic and hypercarbic respiratory failure on BiPAP, presenting to ER with worsening shortness of breath. She had been using her BiPAP nightly, noticed progressive
shortness of breath in less than 16 hours after usage. Was previously admitted and discharged on 03/24/2025, 02/22/2025, 12/28/2024, 11/14/2024 for similar. Hospice was discussed on previous hospitalizations but patient was not ready. She was placed
on morphine at home which was discontinued. On arrival ABG obtained with pH 7.33, pCO2 81, bicarb 42 satting 99%. She is placed on continuous BiPAP. She is a DNR. Admitted to ICU for tenuous respiratory status.
Acute on chronic hypoxic and hypercarbic respiratory failure
End-stage COPD with recurrent admissions
Acute on chronic shortness of breath
Pulmonary cachexia
Conditions present prior admission:
Advanced end-stage COPD: 4 L nasal cannula, noninvasive mechanical ventilation-chronic hypoxemic and hypercapnic respiratory failure
Up until recently followed at [facility]- Dr. Shi, she was denied transplant
PFT 12/2024: FEV1 was 0.34 ml / 19% predicted.
Former smoker, 40 PYs
Rheumatoid arthritis
Chronic anemia
Hypertension
Anxiety
Osteoporosis
Atrial Fibrillation
Plan
Patient has baseline severe COPD, end stage, on maximal medical therapy as out patient-4 hospitalizations in the last 6 months
Outpatient COPD regimen includes: Low-dose theophylline, Azithromycin for anti-inflammatory properties, Brovana/budesonide nebulizers, Ipratropium/albuterol nebulizers as needed, Ohtuvayre and Spiriva. Also been on chronic low-dose prednisone
therapy (5 mg PO bid) and was started on noninvasive mechanical ventilation 12/2024
She has been seen by Darshan and declined transplant
She is maintained on 4 L nasal cannula chronically at baseline
Respiratory status remains quite tenuous-overall BiPAP dependent with liberation for up to 4-6 hours intermittently throughout the daytime as tolerated
Incentive spirometry encouraged continue-no change
Mucinex continues
Home Ohtuvayre nebulizers will begin at family request 04/21/2025-told them I do not think it will be a 'game changer'
DuoNebs and budesonide continue
Decadron-no change for now
BiPAP continues at night and during the daytime as needed-usually liberated for total of 4 hours during the daytime intermittently
Chronic hypercapnic respiratory failure noted
We discussed biologics such as Dupixent however unlikely to make a major change
She does not wish to pursue tracheostomy tube/chronic ventilator facility
Continue supportive care with an emphasis on comfort, DNR, and likely will want comfort care and potentially hospice soon after daughter has tracheal surgery at [facility] 04/26/[address] Guevara had long discussion with patient and at the bedside 04/17/2025-she wishes to be comfortable, DNR, however, wants to be alive if at all possible through her daughter Marietta's tracheostomy revision surgery which is scheduled for
04/26/2025 at [facility].
She would like to continue with supportive care with an emphasis on comfort but not ready to go hospice or discontinue supportive care
Dr. Guevara had separate lengthy conversation with daughter and again 04/17/2025-they are all in agreement that comfort care/supportive care/not hospice is desired at this point until sister gets tracheostomy revision
Dr. Guevara had long conversation with patient, daughter, hospitalist-they want continued supportive care with emphasis on comfort, do not believe they could go home as they do not have enough help with her finances to hire help-continue to want
supportive care until couple days after other daughters tracheal surgery-emotional support provided
Dr. Guevara had conversation with patient and daughter at the bedside 04/19/2025-no change in supportive care with an emphasis on comfort
Dr. Guevara updated at the bedside 04/20/2025 as well as 04/21/2025
Dr. Clemons updated the at bedside on 04/22/2025, as well as spoke to the daughter.
Pulmonary service will continue to follow along
Discussions
04/13/25: She is currently DNR and would not want to proceed with trach and PEG; But yet previous discussions regarding hospice, patient reports that she is not ready. I discussed this extensively in front of the patient and the daughter that her
goals of care do not align and that she is lacking insight into her condition overall. She has demonstrated very poor quality of life with frequent hospitalizations. She meets all the criteria for end-stage COPD. It would be helpful if the family
were to support her mentally to except her lung condition. They were agreeable to repeat hospice consult, this is placed
I am not sure that she has a meaningful path to be discharged home safely if she is on nightly BiPAP and is unable to control CO2 levels. This may mean that she requires continuous BiPAP. The daughter understands, she notes that she has difficult
decision making at this time because her younger sister underwent trach and is having a surgery on 04/26. She wishes for her mother to be alive until then. I have implored the family to have meetings and to discuss her care.
04/14- Family mtg today including Diamond, Dr Ferris, /patient/daughter via phone. Daughter is not ready to accept that her mother is dying or end stage, despite the fact that all the providers here are in agreement that this is her
prognosis. Patient has deferred her choice to her daughter. They wish to speak to Dr Guevara, we will notify him. This may need to involve ethics consult.
04/15- Family was receptive to comfort measures but still had not formally decided.
04/16-Daughter now states they want to check with insurance, wait for patient to sign paperwork/will, have her other daughter visit, and speak with Dr Guevara before they decide on comfort
They still wish for her to stay alive until 04/26. is asking repetitive questions that we reviewed before, he appears to lack insight into her condition completely.
Diagnostic Data
Chest X-Ray: 04/13/25- 1. Clear lungs. 2. No significant change compared to prior study.
CT Scan: CHEST 12/24/24- No evidence of central pulmonary embolism. Suspected changes of emphysema. Overall peripheral prominent size of pulmonary interstitial markings widespread bilaterally at least in part could be chronic. Acute interstitial
pneumonitis cannot be excluded. No focal parenchymal consolidation, pneumothorax or pleural effusion.
Echo: 11/14/24- Low normal LV systolic function with left ventricular ejection fraction estimated by Juarez's method 50% Normal left ventricular wall thickness Normal diastolic function. Normal atrial dimensions Aortic valve poorly visualized with
mildly thickened leaflets consistent with aortic sclerosis without stenosis. No significant aortic insufficiency. Trace mitral and tricuspid insufficiency Unable to estimate right heart pressures due to paucity of TR jet. No pericardial effusion
No prior study available for comparison
PFT's: 12/26/24- FEV1 was .034ml / 19% predicted. FVC was 1.67L / 73% predicted. Very severe obstruction.
Reports and relevant images were personally reviewed.
Patient was seen and evaluated on 04/22/2025 total time spent today was 52 minutes for this encounter. Time includes reviewing laboratory test/imaging results, reviewing pertinent medical records, obtaining and reviewing medical history, performing
an appropriate exam, ordering medications, tests and procedures. Time also includes documentation of this encounter, coordinating patient care and communicating with other healthcare professionals. Total time does not include separately billed
tests performed on this date of service.
Subjective Data
-
Date of Service:
Date of Service: April 22, 2025
Chief Complaint: Pulmonary Follow Up and Dyspnea Follow Up
Subjective:
Patient seen today at bedside (late note entry). Currently on BiPAP 26/12 with VTe 320 mL. She is awake, alert. at bedside. I also spoke to the daughter earlier outside the room in the hallway. No events reported from overnight.
Review of Systems
General: Other (Negative unless mentioned above)
Objective Data
Data Reviewed
Vital Signs / I&O / Oxygen:
Vital Signs
Temp Pulse Resp BP Pulse Ox
98.3 F 114 20 129/71 94
04/22/25 11:51 04/22/25 11:51 04/22/25 11:20 04/22/25 11:51 04/22/25 11:40
Intake and Output
04/21/25 04/22/25 04/23/25
06:59 06:59 06:59
Intake Total 240 / 240 120 / 120
Output Total 200 / 200
Balance 40 / 40 120 / 120
SaO2 94
Nasal Cannula flow liters per 4
minute
Physical Exam
General: Respiratory Distress (n), Comfortable and Other (NAD)
HEENT: Normocephalic, Anicteric and Moist Mucous Membranes
Cardiovascular: S1-S2 and Peripheral Edema (n)
Respiratory: Clear, Wheeze (n), Crackles (n), Rhonchi (n), Non-Labored Respirations and Other (Diminished breath sounds bilaterally)
GI: Soft, Non Distended and Non Tender
Neurology: Awake, Alert and Tremors (n)
Skin: Warm, Dry, Cyanosis (n) and Jaundice (n)
Labs/Micro/Reports
Lab Data
04/18/25 02:26
04/18/25 02:26
[2025-04-22] MEDS: TYLENOL 650 MG PO ×2 (16:35→21:13)
[2025-04-22] MEDS: DECADRON 4 MG IV (18:31)
[2025-04-22] MEDS: LOVENOX 30 MG SC (18:31)
[2025-04-22] MEDS: ZOLOFT 50 MG PO (21:12)
[2025-04-22] MEDS: MELATONIN 5 MG PO (21:12)
[2025-04-22] MEDS: VALTREX 500 MG PO (21:14)
[2025-04-22] MEDS: NON-FORMULARY ITEM 200 MG PO (21:14)
[2025-04-22] MEDS: NON-FORMULARY ITEM 75 MG PO (21:17)
[2025-04-22] MEDS: LIDOCAINE 4% PATCH 1 PATCH TOPICAL ×2 (21:17→21:18)
[2025-04-23] VITALS (18 sets, daily range): BP systolic 115–163; BP diastolic 63–130; PULSE 2–100; BMI 17.8; BMI 17.2
[2025-04-23] MEDS: DUONEB 3 ML INH ×6 (01:14→21:55)
[2025-04-23 05:08] LABS: Venous Blood Gas B.E. 7.0 mmol/L (-4 to +4); Venous Blood Gas O2 Sat % 97.2 %
[2025-04-23 06:03] LABS: Total Iron Binding Capacity 289 ug/dl (265-497)
[2025-04-23 06:31] LABS: Ferritin 86.1 ng/ml (11.1-264.0)
[2025-04-23] MEDS: MUCINEX 1200 MG PO ×2 (08:11→21:51)
[2025-04-23] MEDS: DECADRON 6 MG IV (08:11)
[2025-04-23] MEDS: RESTASIS 0.05% OPHTHALMIC EMULSION 1 DROPS BOTH EYES ×2 (08:11→21:51)
[2025-04-23] MEDS: AZULFIDINE 500 MG PO ×2 (08:11→21:49)
[2025-04-23] MEDS: PULMICORT 0.5 MG INH ×2 (08:13→19:25)
[2025-04-23] MEDS: NON-FORMULARY ITEM 1 UNIT INH (08:13)
[2025-04-23] MEDS: NON-FORMULARY ITEM 100 MG PO (08:14)
[2025-04-23] MEDS: NON-FORMULARY ITEM 20 MG PO (08:15)
--- NOTE | 2025-04-23 08:20 | W.PN.HOSP.TC ---
Today's Communication/Plan
-
Continue supportive care
Assessment / Plan
Assessment / Plan
Yvonne is a 74-year-old female with severe end-stage COPD, chronic hypercapnic respiratory failure, rheumatoid arthritis, paroxysmal atrial fibrillation, lymphedema presented to the ED with significant shortness of breath after being off BiPAP
for less than 16 hours while at home. Patient has had 4 hospitalizations for COPD exacerbations within the last 5 months.
##Acute on chronic severe COPD exacerbation
##End-Stage COPD
# Pulmonary cachexia
# 40+ year tobacco use history
Use of accessory muscles, unable to speak in full sentences, tachycardic, tachypnea. needing BiPAP during night and afternoons naps while at home.
- Admit to the ICU; remains in IMCU due to tenuous respiratory status
- Hold home dose oral prednisone; continue with IV Decadron
- Continue with home regimen of theophylline, azithromycin, Brovana/budesonide nebs, ipratropium albuterol nebulizers as needed, phosphodiesterase inhibitor, Spiriva
- continue morphine 0.5 mg IV as needed to help with air hunger
- Continue home dose of azithromycin 250 mg MWF
- infectious workup negative
-Patient is currently maxed out on symptomatic therapy, seen by multiple pulmonology specialists and declined lung transplant
- now needing BiPAP continuously, arterial blood gas demonstrate patient requires continuous BiPAP to maintain baseline pH
- Will continue with intermittent breaks, patient currently able to tolerate between 10 to 90 minutes off BiPAP
- cleared by speech for regular diet with moister food and smaller bites
Follow-up family meeting on 04/14 and 04/15 � initially agreeable to comfort care measures
04/16/2025 - 04/17/2025 - family now opting to continue with all medical care efforts in an attempt to allow patient to remain alive so that she can see her daughter after major surgery on 04/26, or few days thereafter. If the patient survives long
enough to see her daughter after surgery, she will then initiate comfort care/hospice.
#Acute on chronic hypercapnic/hypoxemic respiratory failure
- Chronic bipap and O2 use at home
- Now on near continuous BiPAP, see above
- Continue oxygen with goal spo2 88-92 %
#Insomnia
Likely from increasing BiPAP needs, end stage respiratory failure, hospital environment
- given Melatonin 5mg qhs
- Steroid dosing changed to 6mg IV QAM and 4mg QPM for better sleep quality
#Nonischemic Troponin Elevation
Most likely secondary to persistent tachycardia due to poor oxygenation as a consequence of end-stage COPD
- elevated troponin 0.038 w/o signs of ischemia on ECG
- Troponins peaked at 0.038
#Leukocytosis
Most likely iatrogenic as pt on chronic home prednisone for RA
- White count 12,300, mild left shift. Afebrile
- Increase productive cough MUSCULOSKELETAL PHYSICIAN -- Chest x-ray is unremarkable
- COVID and flu negative
- less likely infectious at this time, continuing to monitor CBC/temp curve
#Paroxysmal atrial fibrillation
- on tele; tachycardic with irregular rhythm but no formal afib
- not on ac at this time
- Continue diltiazem
#H/o RA
Pt reports history of RA, had been on medication in the past, follows with rheum, planned to start new biologic prior to recent hospitalizations
- we are not allowed to start her on a new infectible medication during this hospital admission, especially not with all her other significant comorbidities and impending hospice
- we do not have Leflunomide on formulary, they may bring it from home if they wish
- we can continue her sulfasalazine
#Anxiety and depression
- Continue sertraline
#History of iron deficiency anemia
- History of iron infusions.
- TIBC wnl, Iron wnl, Ferritin wnl
DVT prophylaxis: Lovenox subcu
CODE STATUS: DNR
Discussed with pulmonology
Anticipated Discharge: > 48 hours
Subjective/Interval History
-
Date of Service: April 23, 2025
Seen and examined at bedside. No acute events reported overnight. Remains stable on BiPAP, tolerating 30 minutes to an hour off of BiPAP
Objective Data
-
Vital Signs:
Vital Signs
Temp Pulse Resp BP Pulse Ox
97.1 F 97 22 137/83 97
04/23/25 03:00 04/23/25 08:14 04/23/25 08:14 04/23/25 06:00 04/23/25 08:14
I&O
04/22/25 04/23/25 04/24/25
06:59 06:59 06:59
Intake Total 120 / 120
Balance 120 / 120
Review of Systems
-
History Source: Patient
All other systems: Reviewed and negative
Physical Exam
-
General: Well Developed, Conversant, Appears Chronically Ill and Cachectic
HEENT: Normocephalic, Atraumatic, Moist Mucous Membranes and Anicteric
Respiratory: Wheezes and Non Labored Respirations; Negative Rhonchi, Crackles or Accessory Resp Muscle Use
Cardiac: Regular Rhythm and S1/S2; Negative Murmur, Rub or Gallop
GI: Soft, Nontender and Nondistended
Musculoskeletal: No Cyanosis and No Edema
Skin: Warm and Dry; Negative Rash
Neuro: AO x 3, Nonfocal/Grossly Intact and Central Nerve's Intact
Psych: Calm
Data Reviewed
-
Labs: Labs Reviewed by me and Discussed with Family
--- NOTE | 2025-04-23 10:41 | HOSPNOTE ---
Hospice has been following in the distance. No official referral received. Reviewed notes. Hospice remains available if and when patient becomes ready.
--- NOTE | 2025-04-23 14:03 | PTCARENOTE ---
pt continues to tolerate small breaks from bipap for meals and conversations with family with 4L via NC. Provider aware of increase in BP trend. pt resting comfortably in bed, CB in reach, no change in physical assessment
--- NOTE | 2025-04-23 17:21 | W.PN.PUL3 ---
Today's Communication / Plan
-
Continue oxygen
Continue BiPAP at night and during the daytime as needed
No change in Decadron
Continue supportive care with an emphasis on comfort
Case management consulted to see if additional assistance is available (per insurance coverage) for at home
Recommend palliative care consult, can be done as an outpatient. If patient agreeable, may benefit from inpatient palliative care evaluation
DNR/DNI
Pulmonary service will continue to follow along
Assessment
-
74-year-old female with previous history of severe end-stage COPD, chronic hypoxemic and hypercarbic respiratory failure on BiPAP, presenting to ER with worsening shortness of breath. She had been using her BiPAP nightly, noticed progressive
shortness of breath in less than 16 hours after usage. Was previously admitted and discharged on 03/24/2025, 02/22/2025, 12/28/2024, 11/14/2024 for similar. Hospice was discussed on previous hospitalizations but patient was not ready. She was placed
on morphine at home which was discontinued. On arrival ABG obtained with pH 7.33, pCO2 81, bicarb 42 satting 99%. She is placed on continuous BiPAP. She is a DNR. Admitted to ICU for tenuous respiratory status.
Acute on chronic hypoxic and hypercarbic respiratory failure
End-stage COPD with recurrent admissions
Acute on chronic shortness of breath
Pulmonary cachexia
Conditions present prior admission:
Advanced end-stage COPD: 4 L nasal cannula, noninvasive mechanical ventilation-chronic hypoxemic and hypercapnic respiratory failure
Up until recently followed at [facility]- Dr. Shi, she was denied transplant
PFT 12/2024: FEV1 was 0.34 ml / 19% predicted.
Former smoker, 40 PYs
Rheumatoid arthritis
Chronic anemia
Hypertension
Anxiety
Osteoporosis
Atrial Fibrillation
Plan
Patient has baseline severe COPD, end stage, on maximal medical therapy as out patient-4 hospitalizations in the last 6 months
Outpatient COPD regimen includes: Low-dose theophylline, Azithromycin for anti-inflammatory properties, Brovana/budesonide nebulizers, Ipratropium/albuterol nebulizers as needed, Ohtuvayre and Spiriva. Also been on chronic low-dose prednisone
therapy (5 mg PO bid) and was started on noninvasive mechanical ventilation 12/2024
She has been seen by Darshan and declined transplant
She is maintained on 4 L nasal cannula chronically at baseline
Respiratory status remains quite tenuous-overall BiPAP dependent with liberation for up to 4-6 hours intermittently throughout the daytime as tolerated
Incentive spirometry encouraged continue-no change
Mucinex continues
Home Ohtuvayre nebulizers will begin at family request 04/21/2025-told them I do not think it will be a 'game changer'
DuoNebs and budesonide continue
Decadron-no change for now
BiPAP continues at night and during the daytime as needed-usually liberated for total of 4 hours during the daytime intermittently
Chronic hypercapnic respiratory failure noted
We discussed biologics such as Dupixent however unlikely to make a major change
She does not wish to pursue tracheostomy tube/chronic ventilator facility
Continue supportive care with an emphasis on comfort, DNR, and likely will want comfort care and potentially hospice soon after daughter has tracheal surgery at [facility] 04/26/2025
- She is not sure what she wants, but she does not want to go on hospice at this juncture and would like to go home and ideally does not want to return to the hospital
- Recommend palliative care, at least as an outpatient which the pt is amenable for, but the patient cannot travel to doctor office visits, so it would need to be televisit or home visit
Dr. Guevara had long discussion with patient and at the bedside 04/17/2025-she wishes to be comfortable, DNR, however, wants to be alive if at all possible through her daughter Marietta's tracheostomy revision surgery which is scheduled for
04/26/2025 at [facility].
She would like to continue with supportive care with an emphasis on comfort but not ready to go hospice or discontinue supportive care
Dr. Guevara had separate lengthy conversation with daughter and again 04/17/2025-they are all in agreement that comfort care/supportive care/not hospice is desired at this point until sister gets tracheostomy revision
Dr. Guevara had long conversation with patient, daughter, hospitalist-they want continued supportive care with emphasis on comfort, do not believe they could go home as they do not have enough help with her finances to hire help-continue to want
supportive care until couple days after other daughters tracheal surgery-emotional support provided
Dr. Guevara had conversation with patient and daughter at the bedside 04/19/2025-no change in supportive care with an emphasis on comfort
Dr. Guevara updated at the bedside 04/20/2025 as well as 04/21/2025
Dr. Clemons updated the and daughter at bedside on 04/22/2025 and 04/23/2025
Pulmonary service will continue to follow along
Discussions
04/13/25: She is currently DNR and would not want to proceed with trach and PEG; But yet previous discussions regarding hospice, patient reports that she is not ready. I discussed this extensively in front of the patient and the daughter that her
goals of care do not align and that she is lacking insight into her condition overall. She has demonstrated very poor quality of life with frequent hospitalizations. She meets all the criteria for end-stage COPD. It would be helpful if the family
were to support her mentally to except her lung condition. They were agreeable to repeat hospice consult, this is placed
I am not sure that she has a meaningful path to be discharged home safely if she is on nightly BiPAP and is unable to control CO2 levels. This may mean that she requires continuous BiPAP. The daughter understands, she notes that she has difficult
decision making at this time because her younger sister underwent trach and is having a surgery on 04/26. She wishes for her mother to be alive until then. I have implored the family to have meetings and to discuss her care.
04/14- Family mtg today including Diamond, Dr Ferris, /patient/daughter via phone. Daughter is not ready to accept that her mother is dying or end stage, despite the fact that all the providers here are in agreement that this is her
prognosis. Patient has deferred her choice to her daughter. They wish to speak to Dr Guevara, we will notify him. This may need to involve ethics consult.
04/15- Family was receptive to comfort measures but still had not formally decided.
04/16-Daughter now states they want to check with insurance, wait for patient to sign paperwork/will, have her other daughter visit, and speak with Dr Guevara before they decide on comfort
They still wish for her to stay alive until 04/26. is asking repetitive questions that we reviewed before, he appears to lack insight into her condition completely.
Diagnostic Data
Chest X-Ray: 04/13/25- 1. Clear lungs. 2. No significant change compared to prior study.
CT Scan: CHEST 12/24/24- No evidence of central pulmonary embolism. Suspected changes of emphysema. Overall peripheral prominent size of pulmonary interstitial markings widespread bilaterally at least in part could be chronic. Acute interstitial
pneumonitis cannot be excluded. No focal parenchymal consolidation, pneumothorax or pleural effusion.
Echo: 11/14/24- Low normal LV systolic function with left ventricular ejection fraction estimated by Juarez's method 50% Normal left ventricular wall thickness Normal diastolic function. Normal atrial dimensions Aortic valve poorly visualized with
mildly thickened leaflets consistent with aortic sclerosis without stenosis. No significant aortic insufficiency. Trace mitral and tricuspid insufficiency Unable to estimate right heart pressures due to paucity of TR jet. No pericardial effusion
No prior study available for comparison
PFT's: 12/26/24- FEV1 was .034ml / 19% predicted. FVC was 1.67L / 73% predicted. Very severe obstruction.
Reports and relevant images were personally reviewed.
Total time spent today was 55 minutes for this encounter. Time includes reviewing laboratory test/imaging results, reviewing pertinent medical records, obtaining and reviewing medical history, performing an appropriate exam, ordering medications,
tests and procedures. Time also includes documentation of this encounter, coordinating patient care and communicating with other healthcare professionals. Total time does not include separately billed tests performed on this date of service.
Subjective Data
-
Date of Service:
Date of Service: April 23, 2025
Chief Complaint: Pulmonary Follow Up and Dyspnea Follow Up
Subjective:
Patient seen this afternoon (late note entry). Currently on BiPAP 26/12 and she would like a break from this at the moment. Afebrile overnight. Patient's and daughter both at bedside, and all questions were answered. Patient currently
complains of a migraine headache.
Review of Systems
General: Other (Negative unless mentioned above)
Objective Data
Data Reviewed
Vital Signs / I&O / Oxygen:
Vital Signs
Temp Pulse Resp BP Pulse Ox
98.3 F 91 21 160/85 96
04/23/25 11:28 04/23/25 13:00 04/23/25 13:00 04/23/25 12:00 04/23/25 13:00
Intake and Output
04/22/25 04/23/25 04/24/25
06:59 06:59 06:59
Intake Total 120 / 120
Balance 120 / 120
SaO2 96
Nasal Cannula flow liters per 4
minute
Physical Exam
General: Respiratory Distress (n), Comfortable and Other (NAD)
HEENT: Normocephalic, Anicteric and Moist Mucous Membranes
Cardiovascular: S1-S2 and Peripheral Edema (n)
Respiratory: Clear, Wheeze (n), Crackles (n), Rhonchi (n), Non-Labored Respirations and Other (Diminished breath sounds bilaterally)
GI: Soft, Non Distended and Non Tender
Neurology: Awake, Alert and Tremors (n)
Skin: Warm, Dry, Cyanosis (n) and Jaundice (n)
Labs/Micro/Reports
Lab Data
04/18/25 02:26
04/18/25 02:26
[2025-04-23] MEDS: LOVENOX 30 MG SC (17:39)
[2025-04-23] MEDS: DECADRON 4 MG IV (17:40)
[2025-04-23] MEDS: NON-FORMULARY ITEM 3 UNIT INH (19:26)
[2025-04-23] MEDS: MAXALT MLT (ORALLY DISINTEGRATING) 10 MG PO (20:27)
[2025-04-23] MEDS: VALTREX 500 MG PO (21:49)
[2025-04-23] MEDS: TYLENOL 650 MG PO (21:49)
[2025-04-23] MEDS: MELATONIN 5 MG PO (21:49)
[2025-04-23] MEDS: ZOLOFT 50 MG PO (21:51)
[2025-04-23] MEDS: MIRALAX 17 GRAMS PO (21:51)
[2025-04-23] MEDS: LIDOCAINE 4% PATCH 1 PATCH TOPICAL ×2 (21:51→21:52)
[2025-04-23] MEDS: NON-FORMULARY ITEM 200 MG PO (21:53)
[2025-04-24] VITALS (14 sets, daily range): BP systolic 109–152; BP diastolic 64–96; PULSE 2–135
--- NOTE | 2025-04-24 07:19 | W.PN.HOSP.TC ---
Addendum entered and electronically signed by Luci Ferris MD 04/24/25 14:56:
I saw and evaluated the patient independently. I reviewed and discussed the resident�s note and agree with findings and plan as documented by Dr. Bynum.
GENERAL: well developed, well nourished, female remains currently off BiPAP but having upper airway wheezing and feeling as if she needs to go back on it
HEENT: NC/AT--O2NC
HEART: regular rate and rhythm, +S1, +S2, tachycardic
LUNGS : no air movement at all appreciated--upper airway wheezing
ABDOM: soft, nontender, nondistended, + bowel sounds
EXT: no cyanosis, clubbing, or edema
NEUROLOGIC: grossly intact
Acute on chronic hypoxemic/hypercarbic respiratory failure due to severe COPD exacerbation-- progressive and end stage--pt with chronic hypoxemia with O2 dependency at home with reduced FEV1 to 19%--pt DOES NOT want intubation or CPR BUT DOES want
as much treatment as we can provide --apprec pulonologist--decadron to oral, cont nebs, pulmicort, follow ABGs--BiPAP support 01/12--small dose morphine as need for air hunger but pt refuses to take it so discontinued--cont home zithromax, no need
for other antibiotics--COVID/FLU negative--goal O2 sats 88-92%--had extensive discussion with pt/, , daughter, CM (see details below)
Leukocytosis with left shift--CXR without infiltrates--hold on further ABX --cont zithromax
paroxysmal atrial fibrillation--sinus rhythm, tachycardic, cont diltiazem
nonischemic myocardial injury troponin elevation
History of anxiety and depression--Continue sertraline
History of iron deficiency anemia required infusions--check iron studies
As of 04/15/25 After much discussion, the decision/plan was the following...
1.) Continue active treatment currently with the intent of having the patient's daughter (who is scheduled for trach revision surgery April 26) come to the hospital to visit either Thursday, Thursday, or Thursday pending arrangements to be
made--daughter did in fact visit patient Thursday04/17/25
2.) After patient meets with her daughter, she will then likely change to comfort measures and wait until April 26 (her daughter's surgery), provided she does well enough on comfort to last that long.
3.) After that, then likely inpatient hospice here.
Explained that our hospice is very strict when it comes to hospice diagnoses and treatments regarding that diagnosis (I.E.BiPAP, nebs, oxygen, etc.) and that those treatments will not be offered but morphine as needed with eventual transition to
morphine drip if needed would be the proper course.
Explained that home hospice is likely not feasible, however, should she make it home, she could wear her BiPAP for 'comfort'. Should she go to a facility, the same can be said but she would need to have a different hospice agency other than
[facility] hospice either at home or in a facility.
04/16/25-- pt and daughter said arrangements made for her other daughter to come Thursday to visit--she is not agreeing to comfort measures yet since now she wants to sign her will, speak with Dr. Guevara, call insurance [employer] etc--she wanted her
sulfasalazine and leflunomide started as well as her new injectable arthritis med (which I said no to) as well as checking iron studies (again which I said no to)--these things are not aligned with comfort as a priority....
04/24/25--I said to patient that we need a decision about inpt hospice, home with hospice, or d/c to a facility since 04/26 is coming up--her daughter (on the phone) and at bedside said that the physicians last week told her she could stay
in the hospital until the (now to make sure that daughter is recovering from her trach revision surgery)--I told her that I cannot hold her in the hospital until the and that a decision will need to be made--daughter became VERY ANGRY and
said thy have not decided on a course of hospice, etc as a family and that her primary leak hunter said she can stay and aburto any decisions
then said the hospital was in the business of rather than living--I removed myself from the room and discussion at that point
Medically she is receiving nebulizer treatments, BiPAP, and oral steroids/meds. She does not require inpt medical therapy unless she chooses inpt hospice. Therefore she can be discharged to home with BiPAP and hospice or not (although she will be a
readmission), a facility with BiPAP and hospice or not (again high risk for readmission) or inpt hospice as she indicated that she would do after 04/26.
Family and patient have changed the plan multiple times.
code status--DNR
DVT proph--Lovenox
Original Note:
Today's Communication/Plan
-
- Continue continuous bipap with 30-90min pauses for eating & visitors
- Continue medical mgmt (nebulizers, IV decadron, PDEi) for COPD exacerbation
- Rizatriptan 10mg for migraine
- Continue discussions w case mgmt & family re: hospice planning
Assessment / Plan
Assessment / Plan
Pt is a 74yo F with a hx of severe end-stage COPD, chronic hypercapneic respiratory failure, RA, paroxysmal afib, & lymphedema who presented 12/ w worsening dyspnea at home (on bipap at night & 4L O2 at home), found to have acute on chronic COPD
exacerbation with hypercapnia.
#Acute on chronic severe COPD exacerbation
#End-stage COPD in s/o 40+ yr tobacco hx
#Acute on chronic hypercapnic/hypoxemic respiratory failure
Patient has had 4 hospitalizations for COPD exacerbations within the last 5 months. [address] Guevara. Has declined lung transplant in past. On arrival to ED 04/13, ABG obtained with pH 7.33, pCO2 81, bicarb 42 satting 99%. She was admitted to
ICU placed on continuous BiPAP. Workup for infectious etiology negative.
Today - in IMU. on BiPAP overnight & with 30-90min pauses in BiPAP for eating & visitors during the day. Satting well without resp distress on 4L O2 between BiPAP uses. Per family, goal to stay on active care until 04/30- (following daughter
surgery on 04/26), after which point they're considering home vs. inpatient hospice.
- Continue IV decadron 10mg daily (6mg qam and 4mg qpm)
- Continue home regimen of theophylline, azithromycin, Brovana/budesonide nebs, ipratropium albuterol nebulizers PRN, phosphodiesterase inhibitor, Spiriva
- Continue morphine 0.5 mg IV as needed to help with air hunger (pt has not been using)
- Continue home dose of azithromycin 250 mg MWF
- Continue continuous BiPAP with 30-90min breaks during day
- Discussed w social work, will investigate transfer to [facility] where pt's daughter is staying - pending ongoing discussions
#Migraine
Today - pt c/o migraine, lightheadedness. Daily nurtec not working. Tried rizatriptan yesterday, potentially slight relief.
- 10mg rizatriptan again today (not to exceed 20mg in 24hr)
#Chronic
#Paroxysmal atrial fibrillation - not on AC, continue diltiazem
#H/o RA - continue home sulfasalazine
#Anxiety & depression - continue sertraline
#History of iron deficiency anemia - TIBC wnl, Iron wnl, Ferritin wnl
#Global
- DVT prophylaxis: Lovenox subQ
- Code: DNR
- Diet: regular
- Dispo: see above re: LTACH vs. hospice case mgmt discussion
Anticipated Discharge: > 48 hours
Subjective/Interval History
-
Date of Service: April 24, 2025
Patient feeling all right this morning, at bedside, daughter Paul on speaker phone. Patient states that she got the most sleep that she has so far last night (4 hours). Her sleep is typically disrupted by pain in the lower extremities and
discomfort from BiPAP. She has been using BiPAP all night and as needed during the day�this amounts to using the BiPAP most of the day but taking it off for interactions with visitors and eating. Per daughter on the phone, concern for
deconditioning and lack of PT. Patient desires PT to come today. Patient denies any nausea/vomiting, endorses that she has a good appetite. Per daughter and , patient seems a bit jittery/anxious. However patient denies feeling
wired/high-energy. Patient states that she has had the BiPAP off for about 30 minutes at time of conversation; states that she is beginning to feel hoarse voice and slight dyspnea after speaking. Patient also endorses an ongoing headache/migraine.
She tried 10mg rizatriptan last night around 8:30 PM�unsure if it helped or not. Endorses ongoing headache right now, along with lightheadedness. Patient typically takes Nurtec for migraines, has been taking it daily at this point, but feels like
it is not helping. Interested in trying more of the triptan/other means of controlling migraine. Daughter clarifies that patient's goal date of continuing active treatment is 04/30-. They spoke with Dr. Gan over the weekend.
Objective Data
-
Vital Signs:
Vital Signs
Temp Pulse Resp BP Pulse Ox
97.4 F 75 20 152/95 99
04/24/25 03:00 04/24/25 04:00 04/24/25 04:00 04/24/25 04:00 04/24/25 04:00
Review of Systems
-
History Source: Patient
Constitutional: Reports No Symptoms
EENT: Reports No Symptoms Reported
Respiratory: Reports Trouble Breathing and Wheezing
Cardiac: Reports No Symptoms
Abdomen/GI: Reports No Symptoms
Breast: Reports No Symptoms
Genitourinary: Reports No Symptoms
Musculoskeletal: Reports No Symptoms
Skin: Reports No Symptoms
Neuro: Reports Headache
Endocrine: Reports No Symptoms
Hematologic / Lymphatic: Reports No Symptoms
Physical Exam
-
General: Cachectic
HEENT: Normocephalic and Atraumatic
Respiratory: Clear to Auscultation and Other (upper respiratory tract end expiratory wheeze/in throat not in lungs)
Cardiac: Regular Rhythm
GI: Soft, Nontender and Nondistended
Musculoskeletal: Clubbing
Skin: Warm and Dry
Neuro: Awake and Alert
Psych: Calm
Data Reviewed
-
Total Time Spent with Patient (in minutes): 25
Critical Care Time (in minutes): 45
[2025-04-24] MEDS: PULMICORT 0.5 MG INH ×2 (07:31→19:33)
[2025-04-24] MEDS: DUONEB 3 ML INH ×5 (07:31→23:12)
[2025-04-24] MEDS: NON-FORMULARY ITEM 1 UNIT INH (07:32)
--- NOTE | 2025-04-24 09:12 | W.PN.PUL3 ---
Today's Communication / Plan
-
Remains on current care, still has not made a decision on comfort vs hospice
Very angry about being held to a timeline on decision-making
I do not think additional treatments while change prognosis
I reviewed with care team their requests
Assessment
-
74-year-old female with previous history of severe end-stage COPD, chronic hypoxemic and hypercarbic respiratory failure on BiPAP, presenting to ER with worsening shortness of breath. She had been using her BiPAP nightly, noticed progressive
shortness of breath in less than 16 hours after usage. Was previously admitted and discharged on 03/24/2025, 02/22/2025, 12/28/2024, 11/14/2024 for similar. Hospice was discussed on previous hospitalizations but patient was not ready. She was placed
on morphine at home which was discontinued. On arrival ABG obtained with pH 7.33, pCO2 81, bicarb 42 satting 99%. She is placed on continuous BiPAP. She is a DNR. Admitted to ICU for tenuous respiratory status.
Acute on chronic hypoxic and hypercarbic respiratory failure
End-stage COPD with recurrent admissions
Acute on chronic shortness of breath
Pulmonary cachexia
Conditions present prior admission:
Advanced end-stage COPD: 4 L nasal cannula, noninvasive mechanical ventilation-chronic hypoxemic and hypercapnic respiratory failure
Up until recently followed at [facility]- Dr. Shi, she was denied transplant
PFT 12/2024: FEV1 was 0.34 ml / 19% predicted.
Former smoker, 40 PYs
Rheumatoid arthritis
Chronic anemia
Hypertension
Anxiety
Osteoporosis
Atrial Fibrillation
Plan
Patient has baseline severe COPD, end stage, on maximal medical therapy as out patient-4 hospitalizations in the last 6 months
Outpatient COPD regimen includes: Low-dose theophylline, Azithromycin for anti-inflammatory properties, Brovana/budesonide nebulizers, Ipratropium/albuterol nebulizers as needed, Ohtuvayre and Spiriva. Also been on chronic low-dose prednisone
therapy (5 mg PO bid) and was started on noninvasive mechanical ventilation 12/2024
She has been seen by Darshan and declined transplant and advanced therapies
She is maintained on 4 L nasal cannula chronically at baseline
Acute on chronic hypercapnic respiratory failure noted
Respiratory status remains quite tenuous-overall BiPAP dependent with liberation for up to 4-6 hours intermittently throughout the daytime as tolerated
She has been intermittently compliant with BIPAP and admits that at times she simply does not want to do it anymore, she had maintained use between 12a-5am.
She has failed outpatient BIPAP management
Home Ohtuvayre nebulizers will begin at family request 04/21/2025-Dr Guevara has told them I do not think it will be a 'game changer'
DuoNebs and budesonide continue
Decadron-no change for now
We discussed biologics such as Dupixent however unlikely to make a major change
I do not think any additional medications/treatment while change outcome
She does not wish to pursue tracheostomy tube/chronic ventilator facility
This was confirmed on numerous occasions
She is DNR
Further GOC discussions are noted below--the daughter understands that there is not a safe path home without readmission
Pulmonary service will continue to follow along
Discussions
Continue supportive care with an emphasis on comfort, DNR, and likely will want comfort care and potentially hospice soon after daughter has tracheal surgery at [facility] 04/26/2025
She is not sure what she wants, but she does not want to go on hospice at this juncture and would like to go home and ideally does not want to return to the hospital
We have discussed outpatient hospice
Dr. Guevara had long discussion with patient and at the bedside 04/17/2025-she wishes to be comfortable, DNR, however, wants to be alive if at all possible through her daughter Marietta's tracheostomy revision surgery which is scheduled for
04/26/2025 at [facility].
She would like to continue with supportive care with an emphasis on comfort but not ready to go hospice or discontinue supportive care
Dr. Guevara had separate lengthy conversation with daughter and again 04/17/2025-they are all in agreement that comfort care/supportive care/not hospice is desired at this point until sister gets tracheostomy revision
Dr. Guevara had long conversation with patient, daughter, hospitalist-they want continued supportive care with emphasis on comfort, do not believe they could go home as they do not have enough help with her finances to hire help-continue to want
supportive care until couple days after other daughters tracheal surgery-emotional support provided
Dr. Guevara had conversation with patient and daughter at the bedside 04/19/2025-no change in supportive care with an emphasis on comfort
Dr. Guevara updated at the bedside 04/20/2025 as well as 04/21/2025
Dr. Clemons updated the and daughter at bedside on 04/22/2025 and 04/23/2025
June 04/13/25: She is currently DNR and would not want to proceed with trach and PEG; But yet previous discussions regarding hospice, patient reports that she is not ready. I discussed this extensively in front of the patient and the daughter that
her goals of care do not align and that she is lacking insight into her condition overall. She has demonstrated very poor quality of life with frequent hospitalizations. She meets all the criteria for end-stage COPD. It would be helpful if the
family were to support her mentally to except her lung condition. They were agreeable to repeat hospice consult, this is placed
I am not sure that she has a meaningful path to be discharged home safely if she is on nightly BiPAP and is unable to control CO2 levels. This may mean that she requires continuous BiPAP. The daughter understands, she notes that she has difficult
decision making at this time because her younger sister underwent trach and is having a surgery on 04/26. She wishes for her mother to be alive until then. I have implored the family to have meetings and to discuss her care.
June 04/14- Family mtg today including Diamond, Dr Ferris, /patient/daughter via phone. Daughter is not ready to accept that her mother is dying or end stage, despite the fact that all the providers here are in agreement that this is her
prognosis. Patient has deferred her choice to her daughter. They wish to speak to Dr Guevara, we will notify him. This may need to involve ethics consult.
June 04/15- Family was receptive to comfort measures but still had not formally decided.
June 04/16-Daughter now states they want to check with insurance, wait for patient to sign paperwork/will, have her other daughter visit, and speak with Dr Guevara before they decide on comfort
They still wish for her to stay alive until 04/26. is asking repetitive questions that we reviewed before, he appears to lack insight into her condition completely.
Diagnostic Data
Chest X-Ray: 04/13/25- 1. Clear lungs. 2. No significant change compared to prior study.
CT Scan: CHEST 12/24/24- No evidence of central pulmonary embolism. Suspected changes of emphysema. Overall peripheral prominent size of pulmonary interstitial markings widespread bilaterally at least in part could be chronic. Acute interstitial
pneumonitis cannot be excluded. No focal parenchymal consolidation, pneumothorax or pleural effusion.
Echo: 11/14/24- Low normal LV systolic function with left ventricular ejection fraction estimated by Juarez's method 50% Normal left ventricular wall thickness Normal diastolic function. Normal atrial dimensions Aortic valve poorly visualized with
mildly thickened leaflets consistent with aortic sclerosis without stenosis. No significant aortic insufficiency. Trace mitral and tricuspid insufficiency Unable to estimate right heart pressures due to paucity of TR jet. No pericardial effusion
No prior study available for comparison
PFT's: 12/26/24- FEV1 was .034ml / 19% predicted. FVC was 1.67L / 73% predicted. Very severe obstruction.
Reports and relevant images were personally reviewed.
Total time spent today was 55 minutes for this encounter. Time includes reviewing laboratory test/imaging results, reviewing pertinent medical records, obtaining and reviewing medical history, performing an appropriate exam, ordering medications,
tests and procedures. Time also includes documentation of this encounter, coordinating patient care and communicating with other healthcare professionals. Total time does not include separately billed tests performed on this date of service.
Subjective Data
-
Date of Service:
Date of Service: April 24, 2025
Chief Complaint: Pulmonary Follow Up and Dyspnea Follow Up
Subjective:
Remains on BIPAP at night and throughout the day
Tolerating few breaks from 30-60 mins, at times 90 mins but RN notes she struggles by the end of a long stretch
at bedside, daughter on the phone
Objective Data
Data Reviewed
Vital Signs / I&O / Oxygen:
Vital Signs
Temp Pulse Resp BP Pulse Ox
97.4 F 92 22 152/95 97
04/24/25 03:00 04/24/25 07:36 04/24/25 07:36 04/24/25 04:00 04/24/25 07:36
SaO2 97
Nasal Cannula flow liters per 4
minute
Physical Exam
General: Respiratory Distress (n), Comfortable and Other (NAD, Thin appearing)
HEENT: Normocephalic, Anicteric and Moist Mucous Membranes
Cardiovascular: S1-S2, Regular Rhythm and Peripheral Edema (n)
Respiratory: Clear, Wheeze (n), Crackles (n), Rhonchi (n), Non-Labored Respirations and Other (Diminished breath sounds bilaterally)
GI: Soft, Non Distended and Non Tender
Neurology: Awake, Alert, Oriented and Tremors (n)
Skin: Warm, Dry, Cyanosis (n) and Jaundice (n)
Labs/Micro/Reports
Lab Data
04/18/25 02:26
04/18/25 02:26
[2025-04-24] MEDS: VITAMIN B-12 50 MCG PO (09:13)
[2025-04-24] MEDS: THERAGRAN 1 TABLET PO (09:13)
[2025-04-24] MEDS: AZULFIDINE 500 MG PO ×2 (09:14→19:51)
[2025-04-24] MEDS: RESTASIS 0.05% OPHTHALMIC EMULSION 1 DROPS BOTH EYES ×2 (09:14→19:51)
[2025-04-24] MEDS: MUCINEX 1200 MG PO ×2 (09:14→19:52)
[2025-04-24] MEDS: DECADRON 6 MG IV (09:16)
[2025-04-24] MEDS: NON-FORMULARY ITEM 1000 MG PO (09:21)
[2025-04-24] MEDS: NON-FORMULARY ITEM 20 MG PO (09:23)
[2025-04-24] MEDS: VITAMIN D3 (cholecalciferol) 25 MCG PO (09:53)
[2025-04-24] MEDS: VITAMIN C 1000 MG PO (09:53)
[2025-04-24] MEDS: MAXALT MLT (ORALLY DISINTEGRATING) 10 MG PO (11:43)
--- NOTE | 2025-04-24 14:32 | CM ---
Patient seen at bedside with physicians in IMU with patient present and daughter on phone. Patient indicated that she would be remaining at until 04/30 approx as per her discussion with primary pulmonary physician and previous
hospitalist; she would with family make decisions about hospice and next steps at that time.
Per hospitalist note of today; plan for hospice as Inpatient vs SNF with BIPAP/hospice vs home with hospice/ bipap as appropriate. VN hospice following as needed. CM following for discharge planning needs.
Plan; pending medical treatment plan; home with BIPAP/hospice or VN vs SNF with Bipap/hospice vs hospice as Inpatient.
[2025-04-24] MEDS: LOVENOX 30 MG SC (18:06)
[2025-04-24] MEDS: DECADRON 4 MG PO (18:06)
[2025-04-24] MEDS: NON-FORMULARY ITEM 3 UNIT INH (19:37)
[2025-04-24] MEDS: ZITHROMAX 250 MG PO (19:52)
[2025-04-24] MEDS: NON-FORMULARY ITEM 1 MG PO (21:43)
[2025-04-24] MEDS: ZOLOFT 50 MG PO (21:43)
[2025-04-24] MEDS: MELATONIN 5 MG PO (21:43)
[2025-04-24] MEDS: LIDOCAINE 4% PATCH 1 PATCH TOPICAL ×2 (21:44)
[2025-04-24] MEDS: VALTREX 500 MG PO (21:46)
[2025-04-25] VITALS (15 sets, daily range): BP systolic 105–154; BP diastolic 63–88; PULSE 2–116; BMI 17.2
--- NOTE | 2025-04-25 05:09 | PTCARENOTE ---
Addendum entered by Nate Gross RN 04/25/25 05:41:
pt and said she is supposed to take po cardizem when heart rate goes up- explained to the her heart rate is now in the 90's- she does take Cardizem po at home but not currently ordered- received order for po Cardizem x1 per pt nad
request- went administer Cardizem and pt and her are now refusing. tried to educate on plan of care /goals of care and he continues to say he will request a automotive alignment specialist. reviewed that pt and requested po Cardizem and
order was obtained and now they are refusing. pt and then started arguing with one another. told them to ring the colon if they want Cardizem.
Original Note:
pt has heart rate in the 170's while using bedside commode- when she gets back to bed heart rate went back to 90's sinus pac's pvc's had episode of chest discomfort with high heart rate. morphine offered and refused. said she needs to see a
automotive alignment specialist. reviewed goals of care end stage copd triggering high heart rate etc, continues to say she needs a automotive alignment specialist. reviewed dr's recommendations regarding end of life care comfort etc, currently pt has heart rate in 90's
and good sats on bibap- she requested taking bipap and was strongly encouraged to keep on which she agreed
[2025-04-25] MEDS: CARDIZEM 30 MG PO (06:09)
[2025-04-25] MEDS: TYLENOL 650 MG PO (06:09)
[2025-04-25] MEDS: NON-FORMULARY ITEM 1 MG PO ×2 (06:15→20:59)
--- NOTE | 2025-04-25 07:12 | W.PN.HOSP.TC ---
Addendum entered and electronically signed by Luci Ferris MD 04/29/25 13:04:
Clarification: when pt agreed to comfort measures, extraneous meds (including cardizem) were stopped--then pt had episode of rapid HR and one time order of cardizem was given but pt refused
Addendum entered and electronically signed by Luci Ferris MD 04/25/25 14:25:
I saw and evaluated the patient independently. I reviewed and discussed the resident�s note and agree with findings and plan as documented by Dr. Bynum.
GENERAL: well developed, well nourished, female remains currently off BiPAP but having upper airway wheezing
HEENT: NC/AT--O2NC
HEART: regular rate and rhythm, +S1, +S2, tachycardic
LUNGS : no air movement at all appreciated--upper airway wheezing
ABDOM: soft, nontender, nondistended, + bowel sounds
EXT: no cyanosis, clubbing, or edema
NEUROLOGIC: grossly intact
Acute on chronic hypoxemic/hypercarbic respiratory failure due to severe COPD exacerbation-- progressive and end stage--pt with chronic hypoxemia with O2 dependency at home with reduced FEV1 to 19%--pt DOES NOT want intubation or CPR BUT DOES want
as much treatment as we can provide --apprec bench worker binding--decadron to oral, cont nebs, pulmicort--BiPAP support 01/12--small dose morphine as need for air hunger but pt refuses to take it so discontinued--cont home zithromax, no need for other
antibiotics--COVID/FLU negative--goal O2 sats 88-92%--had extensive discussion with pt/, , daughter, CM (see details below)
Leukocytosis with left shift--CXR without infiltrates--hold on further ABX --cont zithromax
paroxysmal atrial fibrillation--sinus rhythm, tachycardic, cont diltiazem--pt had episode of tachycardia with moving around then refused to take cardizem (see nursing notes)
nonischemic myocardial injury troponin elevation
History of anxiety and depression--Continue sertraline
History of iron deficiency anemia required infusions--check iron studies
As of 04/15/25 After much discussion, the decision/plan was the following...
1.) Continue active treatment currently with the intent of having the patient's daughter (who is scheduled for trach revision surgery April 26) come to the hospital to visit either Thursday, Thursday, or Thursday pending arrangements to be
made--daughter did in fact visit patient Thursday04/17/25
2.) After patient meets with her daughter, she will then likely change to comfort measures and wait until April 26 (her daughter's surgery), provided she does well enough on comfort to last that long.
3.) After that, then likely inpatient hospice here.
Explained that our hospice is very strict when it comes to hospice diagnoses and treatments regarding that diagnosis (I.E.BiPAP, nebs, oxygen, etc.) and that those treatments will not be offered but morphine as needed with eventual transition to
morphine drip if needed would be the proper course.
Explained that home hospice is likely not feasible, however, should she make it home, she could wear her BiPAP for 'comfort'. Should she go to a facility, the same can be said but she would need to have a different hospice agency other than
[facility] hospice either at home or in a facility.
04/16/25-- pt and daughter said arrangements made for her other daughter to come Thursday to visit--she is not agreeing to comfort measures yet since now she wants to sign her will, speak with Dr. Guevara, call insurance company etc--she wanted her
sulfasalazine and leflunomide started as well as her new injectable arthritis med (which I said no to) as well as checking iron studies (again which I said no to)--these things are not aligned with comfort as a priority....
04/24/25--I said to patient that we need a decision about inpt hospice, home with hospice, or d/c to a facility since 04/26 is coming up--her daughter (by phone) and at bedside said that the physicians last week told her she could stay in
the hospital until the (now to make sure that daughter is recovering from her trach revision surgery)--I told her that I cannot hold her in the hospital until the and that a decision will need to be made--daughter became VERY ANGRY and
said thy have not decided on a course of hospice, etc as a family and that her primary bench worker binding said she can stay and not aburto any decisions
then said the hospital was in the business of rather than living--I removed myself from the room and discussion at that point
Medically she is receiving nebulizer treatments, BiPAP, and oral steroids/meds. She does not require inpt medical therapy unless she chooses inpt hospice. Therefore she can be discharged to home with BiPAP and hospice or not (although she will be a
readmission), a facility with BiPAP and hospice or not (again high risk for readmission) or inpt hospice as she indicated that she would do after 04/26.
Family and patient have changed the plan multiple times.
04/25/25--spoke with nursing--pt was off BiPAP from ~ 8AM to ~2PM on 04/24 (nursing called respiratory multiple times for pt to go back on only to have pt refuse {working with PT, visiting with visitors, etc})--talked with hospice who said IF pt
truly off then does not qualify for inpt hospice. Gave family choice that on 04/27 she could go home or to a facility with or without hospice or continue to stay here and pay privately as I would NOT keep her in the hospital until this coming
weekend. Daughter wants a call from the COMMUNITY DIRECTOR since she believes that Dr. Guevara's plan should be followed despite the fact that he is not on service. She is on BiPAP and nebs and oral meds. There is no medical reason for her to require hospital
level of care at this point.
code status--DNR
DVT proph--Lovenox
Original Note:
Today's Communication/Plan
-
- Continue supportive care
- Continuous bipap with pauses
- Dispo planning per ongoing discussions
Assessment / Plan
Assessment / Plan
Pt is a 74yo F with a hx of severe end-stage COPD, chronic hypercapneic respiratory failure, RA, paroxysmal afib, & lymphedema who presented 12/ w worsening dyspnea at home (on bipap at night & 4L O2 at home), found to have acute on chronic COPD
exacerbation with hypercapnia, now awaiting decision around hospice.
#Acute on chronic severe COPD exacerbation
#End-stage COPD in s/o 40+ yr tobacco hx
#Acute on chronic hypercapnic/hypoxemic respiratory failure
Patient has had 4 hospitalizations for COPD exacerbations within the last 5 months[address] Guevara. Has declined lung transplant in past. On arrival to ED 04/13, ABG obtained with pH 7.33, pCO2 81, bicarb 42 satting 99%. She was admitted to
ICU & placed on continuous BiPAP. Workup for infectious etiology negative.
Today - in IMU. on BiPAP in am. Was off ~6hr yesterday. Family remains adamant regarding staying inpatient.
- Continue PO decadron 10mg daily (6mg qam and 4mg qpm)
- Continue home regimen of theophylline, azithromycin, Brovana/budesonide nebs, ipratropium albuterol nebulizers PRN, phosphodiesterase inhibitor, Spiriva
- Continue home dose of azithromycin 250 mg MWF
- Continue continuous BiPAP with 30-90min breaks during day
- Pending ongoing discussions around LTACH vs. inpatient hospice vs. home hospice
#Migraine, improving
Today - pt c/o migraine, lightheadedness. Daily nurtec not working sufficiently. Rizatriptan yesterday helped.
- Continue tylenol & daily nurtec
#Chronic
#Paroxysmal atrial fibrillation - not on AC, continue diltiazem PRN
#H/o RA - continue home sulfasalazine
#Anxiety & depression - continue sertraline
#History of iron deficiency anemia - TIBC wnl, Iron wnl, Ferritin wnl
#Global
- DVT prophylaxis: Lovenox subQ
- Code: DNR
- Diet: regular
- Dispo: see above re: LTACH vs. hospice case mgmt discussion
Anticipated Discharge: 24 - 48 hours
Subjective/Interval History
-
Date of Service: April 25, 2025
Pt with bipap on this am. States that she used it about ~20hrs yesterday. Feels that respiratory status is stable, unchanged from yesterday. Migraine is somewhat improved s/p triptan yesterday. Took another nurtec this am. Had an episode of
palpitations overnight while getting up to use the commode. Overnight team ordered an additional dose of diltiazem, which helped with pt sx. Pt HR in 90s on exam, denies residual palpitations or racing heart. States that PT saw her yesterday and
recommended she walk to the bathroom to work on conditioning, will continue to see her.
Per RN, claudia was actually off bipap for ~6-7hr yesterday.
Objective Data
-
Vital Signs:
Vital Signs
Temp Pulse Resp BP Pulse Ox
97.7 F 82 22 110/69 99
04/24/25 23:00 04/25/25 06:42 04/25/25 06:42 04/25/25 06:42 04/25/25 06:42
I&O
04/24/25 04/25/25 04/26/25
06:59 06:59 06:59
Intake Total 360 / 360
Balance 360 / 360
Review of Systems
-
History Source: Patient and Family
Constitutional: Reports No Symptoms
EENT: Reports No Symptoms Reported
Respiratory: Reports Trouble Breathing and Wheezing
Cardiac: Reports Palpitations
Abdomen/GI: Reports No Symptoms
Genitourinary: Reports No Symptoms
Musculoskeletal: Reports No Symptoms
Skin: Reports No Symptoms
Neuro: Reports No Symptoms
Physical Exam
-
General: Appears Chronically Ill and Cachectic
HEENT: Normocephalic and Atraumatic
Respiratory: Clear to Auscultation, Wheezes (upper airway expiratory wheeze) and Other (bipap on)
Cardiac: Regular Rhythm
GI: Nontender
Musculoskeletal: No Edema and Clubbing
Skin: Warm and Dry
Neuro: Awake and Alert
Psych: Anxious
Data Reviewed
-
Total Time Spent with Patient (in minutes): 20
Critical Care Time (in minutes): 30
[2025-04-25] MEDS: DUONEB 3 ML INH ×5 (07:24→23:47)
[2025-04-25] MEDS: NON-FORMULARY ITEM 1 UNIT INH (07:24)
[2025-04-25] MEDS: PULMICORT 0.5 MG INH ×2 (07:25→20:06)
[2025-04-25] MEDS: RESTASIS 0.05% OPHTHALMIC EMULSION 1 DROPS BOTH EYES ×2 (09:01→20:58)
[2025-04-25] MEDS: MUCINEX 1200 MG PO ×2 (09:01→20:57)
[2025-04-25] MEDS: NON-FORMULARY ITEM 1000 MG PO (09:02)
[2025-04-25] MEDS: DECADRON 6 MG PO ×2 (09:02→17:39)
[2025-04-25] MEDS: AZULFIDINE 500 MG PO ×2 (09:02→20:57)
[2025-04-25] MEDS: NON-FORMULARY ITEM 20 MG PO (09:03)
[2025-04-25] MEDS: VITAMIN C 1000 MG PO (09:04)
[2025-04-25] MEDS: VITAMIN D3 (cholecalciferol) 25 MCG PO (09:05)
--- NOTE | 2025-04-25 09:14 | W.PN.PUL3 ---
Today's Communication / Plan
-
Remains clinically unchanged, had tachycardia overnight with minimal exertion
Remains on BiPAP intermittently throughout the day and throughout the night
I have implored the family to continue their decision making discussions, they do not seem to be on the same page
I will defer to discharge planning to primary service
Assessment
-
74-year-old female with previous history of severe end-stage COPD, chronic hypoxemic and hypercarbic respiratory failure on BiPAP, presenting to ER with worsening shortness of breath. She had been using her BiPAP nightly, noticed progressive
shortness of breath in less than 16 hours after usage. Was previously admitted and discharged on 03/24/2025, 02/22/2025, 12/28/2024, 11/14/2024 for similar. Hospice was discussed on previous hospitalizations but patient was not ready. She was placed
on morphine at home which was discontinued. On arrival ABG obtained with pH 7.33, pCO2 81, bicarb 42 satting 99%. She is placed on continuous BiPAP. She is a DNR. Admitted to ICU for tenuous respiratory status.
Acute on chronic hypoxic and hypercarbic respiratory failure
End-stage COPD with recurrent admissions
Acute on chronic shortness of breath
Pulmonary cachexia
Conditions present prior admission:
Advanced end-stage COPD: 4 L nasal cannula, noninvasive mechanical ventilation-chronic hypoxemic and hypercapnic respiratory failure
Up until recently followed at [facility]- Dr. Shi, she was denied transplant
PFT 12/2024: FEV1 was 0.34 ml / 19% predicted.
Former smoker, 40 PYs
Rheumatoid arthritis
Chronic anemia
Hypertension
Anxiety
Osteoporosis
Atrial Fibrillation
Plan
Patient has baseline severe COPD, end stage, on maximal medical therapy as out patient-4 hospitalizations in the last 6 months
Outpatient COPD regimen includes: Low-dose theophylline, Azithromycin for anti-inflammatory properties, Brovana/budesonide nebulizers, Ipratropium/albuterol nebulizers as needed, Ohtuvayre and Spiriva. Also been on chronic low-dose prednisone
therapy (5 mg PO bid) and was started on noninvasive mechanical ventilation 12/2024
She has been seen by Darshan and declined transplant and advanced therapies
She is maintained on 4 L nasal cannula chronically at baseline
Acute on chronic hypercapnic respiratory failure noted
Respiratory status remains quite tenuous-overall BiPAP dependent with liberation for up to 4-6 hours intermittently throughout the daytime as tolerated
She has been intermittently compliant with BIPAP and admits that at times she simply does not want to do it anymore, she had maintained use between 12a-5am.
She has failed outpatient BIPAP management
Home Ohtuvayre nebulizers will begin at family request 04/21/2025-Dr Guevara has told them I do not think it will be a 'game changer'
DuoNebs and budesonide continue
Decadron-no change for now
We discussed biologics such as Dupixent however unlikely to make a major change
I do not think any additional medications/treatment while change outcome--at this time, I will not offer any new medications
She does not wish to pursue tracheostomy tube/chronic ventilator facility
This was confirmed on numerous occasions
She is DNR
Further GOC discussions are noted below--the daughter understands that there is not a safe path home without readmission
I discussed further goals of care today, I do observe that the 3 of them do not seem to be on the same page
We will defer any further discharge planning to primary service
Pulmonary service will continue to follow along
Discussions
Continue supportive care with an emphasis on comfort, DNR, and likely will want comfort care and potentially hospice soon after daughter has tracheal surgery at [facility] 04/26/2025
She is not sure what she wants, but she does not want to go on hospice at this juncture and would like to go home and ideally does not want to return to the hospital
We have discussed outpatient hospice
Dr. Guevara had long discussion with patient and at the bedside 04/17/2025-she wishes to be comfortable, DNR, however, wants to be alive if at all possible through her daughter Marietta's tracheostomy revision surgery which is scheduled for
04/26/2025 at [facility].
She would like to continue with supportive care with an emphasis on comfort but not ready to go hospice or discontinue supportive care
Dr. Guevara had separate lengthy conversation with daughter and again 04/17/2025-they are all in agreement that comfort care/supportive care/not hospice is desired at this point until sister gets tracheostomy revision
Dr. Guevara had long conversation with patient, daughter, hospitalist-they want continued supportive care with emphasis on comfort, do not believe they could go home as they do not have enough help with her finances to hire help-continue to want
supportive care until couple days after other daughters tracheal surgery-emotional support provided
Dr. Guevara had conversation with patient and daughter at the bedside 04/19/2025-no change in supportive care with an emphasis on comfort
Dr. Guevara updated at the bedside 04/20/2025 as well as 04/21/2025
Dr. Clemons updated the and daughter at bedside on 04/22/2025 and 04/23/2025
June 04/13/25: She is currently DNR and would not want to proceed with trach and PEG; But yet previous discussions regarding hospice, patient reports that she is not ready. I discussed this extensively in front of the patient and the daughter that
her goals of care do not align and that she is lacking insight into her condition overall. She has demonstrated very poor quality of life with frequent hospitalizations. She meets all the criteria for end-stage COPD. It would be helpful if the
family were to support her mentally to except her lung condition. They were agreeable to repeat hospice consult, this is placed
I am not sure that she has a meaningful path to be discharged home safely if she is on nightly BiPAP and is unable to control CO2 levels. This may mean that she requires continuous BiPAP. The daughter understands, she notes that she has difficult
decision making at this time because her younger sister underwent trach and is having a surgery on 04/26. She wishes for her mother to be alive until then. I have implored the family to have meetings and to discuss her care.
June 04/14- Family mtg today including Diamond, Dr Ferris, /patient/daughter via phone. Daughter is not ready to accept that her mother is dying or end stage, despite the fact that all the providers here are in agreement that this is her
prognosis. Patient has deferred her choice to her daughter. They wish to speak to Dr Guevara, we will notify him. This may need to involve ethics consult.
June 04/15- Family was receptive to comfort measures but still had not formally decided.
June 04/16-Daughter now states they want to check with insurance, wait for patient to sign paperwork/will, have her other daughter visit, and speak with Dr Guevara before they decide on comfort
They still wish for her to stay alive until 04/26. is asking repetitive questions that we reviewed before, he appears to lack insight into her condition completely.
Diagnostic Data
Chest X-Ray: 04/13/25- 1. Clear lungs. 2. No significant change compared to prior study.
CT Scan: CHEST 12/24/24- No evidence of central pulmonary embolism. Suspected changes of emphysema. Overall peripheral prominent size of pulmonary interstitial markings widespread bilaterally at least in part could be chronic. Acute interstitial
pneumonitis cannot be excluded. No focal parenchymal consolidation, pneumothorax or pleural effusion.
Echo: 11/14/24- Low normal LV systolic function with left ventricular ejection fraction estimated by Juarez's method 50% Normal left ventricular wall thickness Normal diastolic function. Normal atrial dimensions Aortic valve poorly visualized with
mildly thickened leaflets consistent with aortic sclerosis without stenosis. No significant aortic insufficiency. Trace mitral and tricuspid insufficiency Unable to estimate right heart pressures due to paucity of TR jet. No pericardial effusion
No prior study available for comparison
PFT's: 12/26/24- FEV1 was .034ml / 19% predicted. FVC was 1.67L / 73% predicted. Very severe obstruction.
Reports and relevant images were personally reviewed.
Total time spent today was 55 minutes for this encounter. Time includes reviewing laboratory test/imaging results, reviewing pertinent medical records, obtaining and reviewing medical history, performing an appropriate exam, ordering medications,
tests and procedures. Time also includes documentation of this encounter, coordinating patient care and communicating with other healthcare professionals. Total time does not include separately billed tests performed on this date of service.
Subjective Data
-
Date of Service:
Date of Service: April 25, 2025
Chief Complaint: Pulmonary Follow Up and Dyspnea Follow Up
Subjective:
Overnight had tachycardia, with simple ambulation to the restroom
She is resumed on BiPAP intermittently
Objective Data
Data Reviewed
Vital Signs / I&O / Oxygen:
Vital Signs
Temp Pulse Resp BP Pulse Ox
97.7 F 83 17 110/69 99
04/24/25 23:00 04/25/25 07:30 04/25/25 07:30 04/25/25 06:42 04/25/25 07:30
Intake and Output
04/24/25 04/25/25 04/26/25
06:59 06:59 06:59
Intake Total 360 / 360
Balance 360 / 360
SaO2 99
Nasal Cannula flow liters per 4
minute
Physical Exam
General: Respiratory Distress (n), Comfortable and Other (NAD, Thin appearing)
HEENT: Normocephalic, Anicteric and Moist Mucous Membranes
Cardiovascular: S1-S2, Regular Rhythm and Peripheral Edema (n)
Respiratory: Clear, Wheeze (n), Crackles (n), Rhonchi (n), Non-Labored Respirations and Other (Diminished breath sounds bilaterally)
GI: Soft, Non Distended and Non Tender
Neurology: Awake, Alert, Oriented and Tremors (n)
Skin: Warm, Dry, Cyanosis (n) and Jaundice (n)
Labs/Micro/Reports
Lab Data
04/18/25 02:26
04/18/25 02:26
--- NOTE | 2025-04-25 14:14 | CM ---
Per Pulmonary physician, Family stated they did not want this worker to follow for patient discharge planning needs. CM updated hospitalist and will update CM covering unit.
--- NOTE | 2025-04-25 14:25 | W.PN.UPDATE ---
Update Note
Progress Note Update
Dr. Michael Montejo will be taking over the patient's medical care as of 04/26/25. Palliative care consult was placed on his behalf.
[2025-04-25] MEDS: LOVENOX 30 MG SC (17:39)
[2025-04-25] MEDS: DECADRON 4 MG PO (17:40)
[2025-04-25] MEDS: NON-FORMULARY ITEM 3 UNIT INH (20:20)
[2025-04-25] MEDS: MELATONIN 5 MG PO (20:57)
[2025-04-25] MEDS: ZOLOFT 50 MG PO (20:57)
[2025-04-25] MEDS: LIDOCAINE 4% PATCH 1 PATCH TOPICAL (20:58)
[2025-04-25] MEDS: MIRALAX 17 GRAMS PO (20:58)
[2025-04-26] VITALS (19 sets, daily range): BP systolic 117–152; BP diastolic 60–104; PULSE 2–128; BMI 17.4
--- NOTE | 2025-04-26 05:00 | PTCARENOTE ---
Cared for pt overnight. No assessment changes. No changes in her care. Remains on 4LNC & bipap on and off. present in room and stayed overnight. will monitor.
[2025-04-26] MEDS: PULMICORT 0.5 MG INH ×2 (07:18→20:01)
[2025-04-26] MEDS: DUONEB 3 ML INH ×5 (07:18→23:23)
[2025-04-26] MEDS: NON-FORMULARY ITEM 1 UNIT INH (07:18)
--- NOTE | 2025-04-26 09:05 | W.PN.PUL3 ---
Today's Communication / Plan
-
Remains clinically unchanged, will reduce her steroid dose to 4mg BID
Continue BIPAP as is
She has expressed interest in going home, not on hospice
Family has yet to make formal decision
Assessment
-
74-year-old female with previous history of severe end-stage COPD, chronic hypoxemic and hypercarbic respiratory failure on BiPAP, presenting to ER with worsening shortness of breath. She had been using her BiPAP nightly, noticed progressive
shortness of breath in less than 16 hours after usage. Was previously admitted and discharged on 03/24/2025, 02/22/2025, 12/28/2024, 11/14/2024 for similar. Hospice was discussed on previous hospitalizations but patient was not ready. She was placed
on morphine at home which was discontinued. On arrival ABG obtained with pH 7.33, pCO2 81, bicarb 42 satting 99%. She is placed on continuous BiPAP. She is a DNR. Admitted to ICU for tenuous respiratory status.
Acute on chronic hypoxic and hypercarbic respiratory failure
End-stage COPD with recurrent admissions
Acute on chronic shortness of breath
Pulmonary cachexia
Conditions present prior admission:
Advanced end-stage COPD: 4 L nasal cannula, noninvasive mechanical ventilation-chronic hypoxemic and hypercapnic respiratory failure
Up until recently followed at [facility]- Dr. Shi, she was denied transplant
PFT 12/2024: FEV1 was 0.34 ml / 19% predicted.
Former smoker, 40 PYs
Rheumatoid arthritis
Chronic anemia
Hypertension
Anxiety
Osteoporosis
Atrial Fibrillation
Plan
Patient has baseline severe COPD, end stage, on maximal medical therapy as out patient-4 hospitalizations in the last 6 months
Outpatient COPD regimen includes: Low-dose theophylline, Azithromycin for anti-inflammatory properties, Brovana/budesonide nebulizers, Ipratropium/albuterol nebulizers as needed, Ohtuvayre and Spiriva. Also been on chronic low-dose prednisone
therapy (5 mg PO bid) and was started on noninvasive mechanical ventilation 12/2024
She has been seen by Darshan and declined transplant and advanced therapies
She is maintained on 4 L nasal cannula chronically at baseline
Acute on chronic hypercapnic respiratory failure noted
Respiratory status remains quite tenuous-overall BiPAP dependent with liberation for up to 4-6 hours intermittently throughout the daytime as tolerated
She has been intermittently compliant with BIPAP and admits that at times she simply does not want to do it anymore, she had maintained use between 12a-5am.
She has failed outpatient BIPAP management
Home Ohtuvayre nebulizers will begin at family request 04/21/2025-Dr Guevara has told them I do not think it will be a 'game changer'
DuoNebs and budesonide continue
Decadron-no change for now
We discussed biologics such as Dupixent however unlikely to make a major change
I do not think any additional medications/treatment while change outcome--at this time, I will not offer any new medications
She does not wish to pursue tracheostomy tube/chronic ventilator facility
This was confirmed on numerous occasions
She is DNR
Further GOC discussions are noted below--the daughter understands that there is not a safe path home without readmission
I discussed further goals of care today, I do observe that the 3 of them do not seem to be on the same page
After long conversation today with patient-she expressed interest in going home and readmission when she decompensates, I relayed this to team
Discussions
Continue supportive care with an emphasis on comfort, DNR, and likely will want comfort care and potentially hospice soon after daughter has tracheal surgery at [facility] 04/26/2025
She is not sure what she wants, but she does not want to go on hospice at this juncture and would like to go home and ideally does not want to return to the hospital
We have discussed outpatient hospice
Dr. Guevara had long discussion with patient and at the bedside 04/17/2025-she wishes to be comfortable, DNR, however, wants to be alive if at all possible through her daughter Marietta's tracheostomy revision surgery which is scheduled for
04/26/2025 at [facility].
She would like to continue with supportive care with an emphasis on comfort but not ready to go hospice or discontinue supportive care
Dr. Guevara had separate lengthy conversation with daughter and again 04/17/2025-they are all in agreement that comfort care/supportive care/not hospice is desired at this point until sister gets tracheostomy revision
Dr. Guevara had long conversation with patient, daughter, hospitalist-they want continued supportive care with emphasis on comfort, do not believe they could go home as they do not have enough help with her finances to hire help-continue to want
supportive care until couple days after other daughters tracheal surgery-emotional support provided
Dr. Guevara had conversation with patient and daughter at the bedside 04/19/2025-no change in supportive care with an emphasis on comfort
Dr. Guevara updated at the bedside 04/20/2025 as well as 04/21/2025
Dr. Clemons updated the and daughter at bedside on 04/22/2025 and 04/23/2025
June 04/13/25: She is currently DNR and would not want to proceed with trach and PEG; But yet previous discussions regarding hospice, patient reports that she is not ready. I discussed this extensively in front of the patient and the daughter that
her goals of care do not align and that she is lacking insight into her condition overall. She has demonstrated very poor quality of life with frequent hospitalizations. She meets all the criteria for end-stage COPD. It would be helpful if the
family were to support her mentally to except her lung condition. They were agreeable to repeat hospice consult, this is placed
I am not sure that she has a meaningful path to be discharged home safely if she is on nightly BiPAP and is unable to control CO2 levels. This may mean that she requires continuous BiPAP. The daughter understands, she notes that she has difficult
decision making at this time because her younger sister underwent trach and is having a surgery on 04/26. She wishes for her mother to be alive until then. I have implored the family to have meetings and to discuss her care.
June 04/14- Family mtg today including Diamond, Dr Ferris, /patient/daughter via phone. Daughter is not ready to accept that her mother is dying or end stage, despite the fact that all the providers here are in agreement that this is her
prognosis. Patient has deferred her choice to her daughter. They wish to speak to Dr Guevara, we will notify him. This may need to involve ethics consult.
June 04/15- Family was receptive to comfort measures but still had not formally decided.
June 04/16-Daughter now states they want to check with insurance, wait for patient to sign paperwork/will, have her other daughter visit, and speak with Dr Guevara before they decide on comfort
They still wish for her to stay alive until 04/26. is asking repetitive questions that we reviewed before, he appears to lack insight into her condition completely.
Diagnostic Data
Chest X-Ray: 04/13/25- 1. Clear lungs. 2. No significant change compared to prior study.
CT Scan: CHEST 12/24/24- No evidence of central pulmonary embolism. Suspected changes of emphysema. Overall peripheral prominent size of pulmonary interstitial markings widespread bilaterally at least in part could be chronic. Acute interstitial
pneumonitis cannot be excluded. No focal parenchymal consolidation, pneumothorax or pleural effusion.
Echo: 11/14/24- Low normal LV systolic function with left ventricular ejection fraction estimated by Juarez's method 50% Normal left ventricular wall thickness Normal diastolic function. Normal atrial dimensions Aortic valve poorly visualized with
mildly thickened leaflets consistent with aortic sclerosis without stenosis. No significant aortic insufficiency. Trace mitral and tricuspid insufficiency Unable to estimate right heart pressures due to paucity of TR jet. No pericardial effusion
No prior study available for comparison
PFT's: 12/26/24- FEV1 was .034ml / 19% predicted. FVC was 1.67L / 73% predicted. Very severe obstruction.
Reports and relevant images were personally reviewed.
Total time spent today was 55 minutes for this encounter. Time includes reviewing laboratory test/imaging results, reviewing pertinent medical records, obtaining and reviewing medical history, performing an appropriate exam, ordering medications,
tests and procedures. Time also includes documentation of this encounter, coordinating patient care and communicating with other healthcare professionals. Total time does not include separately billed tests performed on this date of service.
Subjective Data
-
Date of Service:
Date of Service: April 26, 2025
Chief Complaint: Pulmonary Follow Up and Dyspnea Follow Up
Subjective:
No new complaints, remains clinically unchanged
at bedside, daughter on phone
Objective Data
Data Reviewed
Vital Signs / I&O / Oxygen:
Vital Signs
Temp Pulse Resp BP Pulse Ox
97.8 F 98 22 119/63 98
04/26/25 03:31 04/26/25 07:30 04/26/25 07:30 04/26/25 04:00 04/26/25 07:30
Intake and Output
04/25/25 04/26/25 04/27/25
06:59 06:59 06:59
Intake Total 360 / 360 960 / 960
Balance 360 / 360 960 / 960
SaO2 98
Nasal Cannula flow liters per 4
minute
Physical Exam
General: Respiratory Distress (n), Comfortable and Other (NAD, Thin appearing)
HEENT: Normocephalic, Anicteric and Moist Mucous Membranes
Cardiovascular: S1-S2, Regular Rhythm and Peripheral Edema (n)
Respiratory: Clear, Wheeze (n), Crackles (n), Rhonchi (n), Non-Labored Respirations and Other (Diminished breath sounds bilaterally)
GI: Soft, Non Distended and Non Tender
Neurology: Awake, Alert, Oriented and Tremors (n)
Skin: Warm, Dry, Cyanosis (n) and Jaundice (n)
Labs/Micro/Reports
Lab Data
04/18/25 02:26
04/18/25 02:26
[2025-04-26] MEDS: THERAGRAN 1 TABLET PO (09:21)
[2025-04-26] MEDS: VITAMIN B-12 50 MCG PO (09:22)
[2025-04-26] MEDS: AZULFIDINE 500 MG PO (09:22)
[2025-04-26] MEDS: RESTASIS 0.05% OPHTHALMIC EMULSION 1 DROPS BOTH EYES ×2 (09:23→21:03)
[2025-04-26] MEDS: NON-FORMULARY ITEM 20 MG PO (09:24)
[2025-04-26] MEDS: NON-FORMULARY ITEM 1000 MG PO (09:25)
[2025-04-26] MEDS: MUCINEX 1200 MG PO ×2 (09:25→21:02)
[2025-04-26] MEDS: VITAMIN C 1000 MG PO (09:31)
[2025-04-26] MEDS: VITAMIN D3 (cholecalciferol) 25 MCG PO (09:32)
--- NOTE | 2025-04-26 10:29 | W.CON.PAL ---
Consultation
-
Date/Time Consultation Requested: 04/25
Date/Time Consultation Performed: 04/26
Performing Provider: Olesya Hassan
Reason for Consult: Goals of Care Discussion
Reason for Admission
Illness Course/HPI
74 year old F with end stage COPD admitted with respiratory failure. Is now requiring continuous BIPAP with no improvement. NO safe discharge plan. Multiple discussions with family who all dont seem to be on the same page and struggling with
decision making. Also patients daughter undergoing surgery today which they state they want to see her through before making any difficult decisions in regards to patients care.
Consult for GOC.
Per chart review there have been multiple conversations throughout patients hospitalization with multiple team members and patients family. Patients daughter is having a trach revision surgery today and family would like to see she makes it through
that before making any final decisions on patients care. Patient is agreeable to DNR/DNI and being focused on comfort care. Family struggling to come to terms with this which is understandable. Patient has no safe discharge plan given she is fully
dependent on BIPAP at this point. Given patients daughters surgery is today, will hold off on having another conversation with patient and family today and will follow up this week. Recommend a family meeting with us some time after daughters
surgery today to discuss best next steps and come up with a plan. Available morning and Thursday PM this week. Will follow up this week.
Objective Data
-
Objective Data:
Vital Signs
Temp Pulse Resp BP Pulse Ox
97.8 F 98 22 119/63 98
04/26/25 03:31 04/26/25 07:30 04/26/25 07:30 04/26/25 04:00 04/26/25 07:30
Laboratory Results
04/18/25 02:26
04/18/25 02:26
PT 14.0 Sec (11.4-14.6) 04/14/25 03:38
INR 1.10 04/14/25 03:38
APTT 29.6 Sec (23.4-35.0) 04/14/25 03:38
Total Protein 6.1 g/dl (6.3-8.2) L 04/17/25 05:47
Albumin 3.9 g/dl (3.5-5.0) 04/17/25 05:47
Palliative Performance Scale
Palliative Performance Scale:
PPS Level Ambulation Activity & Evidence of Disease Self Care Intake Conscious Level
100% Full Normal Activity & Work; Full Intake Full
No Evidence of Disease
90% Full Normal Activity & Work; Full Normal Full
Some Evidence of Disease
80% Full Normal Activity with Effort Full Normal or Full
Some Evidence of Disease Reduced
70% Reduced Unable Normal Job/Work Full Normal or Full
Significant Disease Reduced
60% Reduced Unable Hobby/Housework Occasional Normal or Full or Confusion
Significant Disease Assistance Reduced
50% Mainly Sit/Lie Unable to do Any Work Considerable Normal or Full or Confusion
Extensive Disease Assistance Req'd Reduced
40% Mainly in Bed Unable to do Most Activity Mainly Assistance Normal or Full or Drowsy;
Extensive Disease Reduced +/- Confusion
30% Totally Bed Unable to do Any Activity Total Care Normal or Full or Drowsy;
Bound Extensive Disease Reduced +/- Confusion
20% Totally Bed Bound Unable to do Any Activity Total Care Minimal to Full or Drowsy;
Extensive Disease Sips +/- Confusion
10% Totally Bed Bound Unable to do Any Activity Total Care Mouth Care Drowsy or Coma;
Extensive Disease Only +/- Confusion
0%
PPS Score Level:
Care Reviewed
Data Reviewed
Radiology procedure: Image Reviewed
Medical Tests: I reviewed
Reviewed with: Physician
[2025-04-26] MEDS: NON-FORMULARY ITEM 75 MG PO (14:16)
--- NOTE | 2025-04-26 14:26 | PTCARENOTE ---
Rec'd pt this AM. very anxious, on and off the bipap frequently. she handed RN a list of items she is requesting be brought to her room. Pt and spouse have frequent requests. RN reminded her that her requests will be addressed to the best of our
ability given the acuity of the unit. Pt and spouse are visibly upset over MD info that pt is end stage COPD with limited treatment options. Spouse has been staying in pt's room around the clock for days with only brief leaving. Spouse fell in the
pt's room, tripping over wheelchair. he has unsteady gait. RN discussed with net manager and informed pt and spouse that he cannot safely remain in the room overnight due to his fall. Both pt and spouse stated that he was not leaving under any
circumstances. RN updated net manager
--- NOTE | 2025-04-26 15:14 | W.PN.HOSP.TC ---
Today's Communication/Plan
-
disposition efforts
Iron labs
Assessment / Plan
Assessment / Plan
Pt is a 74yo F with a hx of severe end-stage COPD, chronic hypercapneic respiratory failure, RA, paroxysmal afib, & lymphedema who presented 12/ w worsening dyspnea at home (on bipap at night & 4L O2 at home), found to have acute on chronic COPD
exacerbation with hypercapnia, now awaiting decision around hospice.
#Acute on chronic severe COPD exacerbation
#End-stage COPD in s/o 40+ yr tobacco hx
#Acute on chronic hypercapnic/hypoxemic respiratory failure
Patient has had 4 hospitalizations for COPD exacerbations within the last 5 [address] Guevara. Has declined lung transplant in past. On arrival to ED 04/13, ABG obtained with pH 7.33, pCO2 81, bicarb 42 satting 99%. She was admitted to
ICU & placed on continuous BiPAP. Workup for infectious etiology negative.
Remains on BiPAP for extensive part of the day
- Continue PO decadron 10mg daily (6mg qam and 4mg qpm)
- Continue home regimen of theophylline, azithromycin, Brovana/budesonide nebs, ipratropium albuterol nebulizers PRN, phosphodiesterase inhibitor, Spiriva
- Continue home dose of azithromycin 250 mg MWF
- Continue continuous BiPAP with 30-90min breaks during day
- Pending ongoing discussions around LTACH vs. inpatient hospice vs. home hospice - Will await decision
#Migraine, improving
Today - pt c/o migraine, lightheadedness. Daily nurtec not working sufficiently. Rizatriptan yesterday helped.
- Continue tylenol & daily nurtec
#Chronic
#Paroxysmal atrial fibrillation - not on AC, continue diltiazem PRN
#H/o RA - continue home sulfasalazine
#Anxiety & depression - continue sertraline
#History of iron deficiency anemia - TIBC wnl, Iron wnl, Ferritin wnl
#Global
- DVT prophylaxis: Lovenox subQ
- Code: DNR
- Diet: regular
- Dispo: see above re: LTACH vs. hospice case mgmt discussion ; Palliative consulted. I Had extensive conversation with the patient and family; Patient understands poor prognosis and needs to iron out a few things with her family at home prior to
switch to hospice. Does not want BiPAP in hospice but is questioning ability on palliative. Adamantly refusing facility, and wants to go home despite education to all parties regarding risks, and poor prognosis - especially if going home. Family,
including daughter accept risks. Conversation ongoing.
Total time spent on today's encounter was 52 minutes which included time spent in counseling the patient/family regarding diagnosis and treatment plan as listed above, goals of care, and symptom management. Case was discussed with nursing staff,
specialists, and care coordinators/case management. All labs and imaging personally reviewed by me. Remainder the time spent in detailed review of previous records, lab data, imaging, and other medical provider documentation.
Anticipated Discharge: > 48 hours
Subjective/Interval History
-
Date of Service: April 26, 2025
no changes; on bipap for majority of the day
Objective Data
-
Vital Signs:
Vital Signs
Temp Pulse Resp BP Pulse Ox
97.7 F 101 23 134/84 94
04/26/25 07:50 04/26/25 14:00 04/26/25 14:00 04/26/25 14:00 04/26/25 14:21
I&O
04/25/25 04/26/25 04/27/25
06:59 06:59 06:59
Intake Total 360 / 360 960 / 960 240 / 240
Balance 360 / 360 960 / 960 240 / 240
Review of Systems
-
History Source: Patient and Family
Constitutional: Reports No Symptoms
EENT: Reports No Symptoms Reported
Respiratory: Reports Trouble Breathing
Abdomen/GI: Reports No Symptoms
Genitourinary: Reports No Symptoms
Musculoskeletal: Reports No Symptoms
Skin: Reports No Symptoms
Neuro: Reports No Symptoms
Data Reviewed
-
Diagnostic Radiology: Report Reviewed by me
Labs: Labs Reviewed by me
--- NOTE | 2025-04-26 16:03 | CM ---
F/U: [facility] spoke to Hospitalist who will speak to senior Administration about disposition options since what is offered is not what the patient/ family would like- all - pending ongoing discussions around LTACH vs. inpatient hospice vs. home
hospice. Patient almost requirers around the clock BIPAP machine support. PLAN: TBD.
[2025-04-26] MEDS: DECADRON 4 MG PO (17:29)
[2025-04-26] MEDS: LOVENOX 30 MG SC (17:29)
--- NOTE | 2025-04-26 18:11 | PTCARENOTE ---
Pt and spouse take pt off bipap several times an hour. Then call for RT to come place bipap back on pt, when RT arrives, pt sends him away stating that she is eating, or making phone calls. This has happened several times this shift. Then spouse is
anxous when he is unavailable to return repeatedly at their request. RT and RN provided education that it is not reasonable or possible for RT to repeatedly come to the floor to re-place pt on bipap several times over short periods of time. They
expressed understanding. Pt's O2 sat is 94% on 4L NC.
[2025-04-26] MEDS: NON-FORMULARY ITEM 3 UNIT INH (20:01)
[2025-04-26] MEDS: ZITHROMAX 250 MG PO (21:01)
[2025-04-26] MEDS: ZOLOFT 50 MG PO (21:02)
[2025-04-26] MEDS: MELATONIN 5 MG PO (21:02)
[2025-04-26] MEDS: LIDOCAINE 4% PATCH 1 PATCH TOPICAL ×2 (21:03)
[2025-04-26] MEDS: NON-FORMULARY ITEM 1 MG PO (21:04)
[2025-04-26] MEDS: MAXALT MLT (ORALLY DISINTEGRATING) 10 MG PO (22:12)
[2025-04-27] VITALS (15 sets, daily range): BP systolic 108–154; BP diastolic 63–103; PULSE 2–124; BMI 17.9
[2025-04-27] MEDS: DUONEB 3 ML INH ×5 (04:44→19:21)
[2025-04-27 05:54] LABS: Hematocrit 40.4 % (37.0-47.0); Hemoglobin 13.0 g/dL (12.0-16.0); Mean Corp Hgb Conc. 32.2 g/dL (33.0-37.0); Mean Corpuscular Volume 91.0 fL (81.0-99.0); Platelet Count 275 10^3/uL (130-400); Red Cell Dist. Width 14.6 % (11.5-14.5)
--- NOTE | 2025-04-27 06:20 | PTCARENOTE ---
Caring for pt overnight. aaox3, NSR, 4LNC and on and off biapap. at beside and stayed the night. Denies pain. No changes in assessment or plan.
[2025-04-27 06:33] LABS: Blood Urea Nitrogen 20 mg/dl (7-17); Calcium 9.0 mg/dl (8.4-10.2); Carbon Dioxide 33 mmol/L (22-30); Chloride 96 mmol/L (98-107); Estimated Creatinine Clearance 53 ml/min; Glucose 117 mg/dl (70-99); Iron 86 ug/dl (37-170); Potassium 4.2 mmol/L (3.5-5.1); Sodium 133 mmol/L (135-145); eGFR > 60.00
[2025-04-27 06:42] LABS: Total Iron Binding Capacity 281 ug/dl (265-497)
[2025-04-27] MEDS: PULMICORT 0.5 MG INH ×2 (07:28→19:21)
[2025-04-27] MEDS: NON-FORMULARY ITEM 1 UNIT INH (07:35)
[2025-04-27 08:48] LABS: Ferritin 92.2 ng/ml (11.1-264.0)
[2025-04-27] MEDS: DECADRON 4 MG PO ×2 (09:18→18:27)
[2025-04-27] MEDS: NON-FORMULARY ITEM 20 MG PO (09:18)
[2025-04-27] MEDS: NON-FORMULARY ITEM 1000 MG PO (09:19)
[2025-04-27] MEDS: MUCINEX 1200 MG PO ×2 (09:20→21:34)
[2025-04-27] MEDS: RESTASIS 0.05% OPHTHALMIC EMULSION 1 DROPS BOTH EYES ×2 (09:20→21:34)
[2025-04-27] MEDS: MIRALAX 17 GRAMS PO (09:22)
[2025-04-27] MEDS: VITAMIN D3 (cholecalciferol) 25 MCG PO (09:28)
[2025-04-27] MEDS: VITAMIN C 1000 MG PO (09:28)
--- NOTE | 2025-04-27 09:35 | W.PN.PUL3 ---
Today's Communication / Plan
-
Still have not made decision on wishes, there is a new date for discussion on 04/28
Pall care consult placed, multiple providers have had numerous discussions regarding this with still no decision made
The patient stated to me that despite all of our efforts, she stated 'I am not ready to yet'
Discharge planning per team
Assessment
-
74-year-old female with previous history of severe end-stage COPD, chronic hypoxemic and hypercarbic respiratory failure on BiPAP, presenting to ER with worsening shortness of breath. She had been using her BiPAP nightly, noticed progressive
shortness of breath in less than 16 hours after usage. Was previously admitted and discharged on 03/24/2025, 02/22/2025, 12/28/2024, 11/14/2024 for similar. Hospice was discussed on previous hospitalizations but patient was not ready. She was placed
on morphine at home which was discontinued. On arrival ABG obtained with pH 7.33, pCO2 81, bicarb 42 satting 99%. She is placed on continuous BiPAP. She is a DNR. Admitted to ICU for tenuous respiratory status.
Acute on chronic hypoxic and hypercarbic respiratory failure
End-stage COPD with recurrent admissions
Acute on chronic shortness of breath
Pulmonary cachexia
Conditions present prior admission:
Advanced end-stage COPD: 4 L nasal cannula, noninvasive mechanical ventilation-chronic hypoxemic and hypercapnic respiratory failure
Up until recently followed at [facility]- Dr. Shi, she was denied transplant
PFT 12/2024: FEV1 was 0.34 ml / 19% predicted.
Former smoker, 40 PYs
Rheumatoid arthritis
Chronic anemia
Hypertension
Anxiety
Osteoporosis
Atrial Fibrillation
Plan
Patient has baseline severe COPD, end stage, on maximal medical therapy as out patient-4 hospitalizations in the last 6 months
Outpatient COPD regimen includes: Low-dose theophylline, Azithromycin for anti-inflammatory properties, Brovana/budesonide nebulizers, Ipratropium/albuterol nebulizers as needed, Ohtuvayre and Spiriva. Also been on chronic low-dose prednisone
therapy (5 mg PO bid) and was started on noninvasive mechanical ventilation 12/2024
She has been seen by Darshan and declined transplant and advanced therapies
She is maintained on 4 L nasal cannula chronically at baseline
Acute on chronic hypercapnic respiratory failure noted
Respiratory status remains quite tenuous-overall BiPAP dependent with liberation for up to 4-6 hours intermittently throughout the daytime as tolerated
She has been intermittently compliant with BIPAP and admits that at times she simply does not want to do it anymore, she had maintained use between 12a-5am.
She has failed outpatient BIPAP management
She is now on continous use with short breaks throughout the day
Home Ohtuvayre nebulizers will begin at family request 04/21/2025-Dr Guevara has told them I do not think it will be a 'game changer'
DuoNebs and budesonide continue
Decadron-continue 4mg PO BID; no change for now
We discussed biologics such as Dupixent however this is unlikely to change her prognosis, not can be feasibly do this if she cannot remain stable as OP for follow-up
I do not think any additional medications/treatment while change outcome--at this time, I will not offer any new medications
She does not wish to pursue tracheostomy tube/chronic ventilator facility
This was confirmed on numerous occasions
She is DNR
Further GOC discussions are noted below--the daughter understands that there is not a safe path home without readmission--we have thoroughly reviewed every option to all 3 (patient, and daughter) including inpatient hospice, outpatient
hospice and comfort measures (repeatedly and at length with multiple providers)
The family wished to wait until her other daughter's surgery 04/26 but are still not ready to make decisions despite our accommodations, and now wish to have time through the weekend, they were told they needed to decide by 04/28--the daughter
stated, 'we will see where we are when he calls on 04/28.'
I discussed further goals of care 04/25, I do observe that the 3 of them do not seem to be on the same page
After long conversation 04/26 with patient-she expressed interest in going home and readmission when she decompensates, I relayed this to team
Pall care consult obtained- await discussions
It is seemingly clear to me that they do not wish or intend to enter into comfort care or hospice, against all our collective recommendations, the stated they are not going to
Discussions
Dr. Guevara had long discussion with patient and at the bedside 04/17/2025-she wishes to be comfortable, DNR, however, wants to be alive if at all possible through her daughter Marietta's tracheostomy revision surgery which is scheduled for
04/26/2025 at [facility].
She would like to continue with supportive care with an emphasis on comfort but not ready to go hospice or discontinue supportive care
Dr. Guevara had separate lengthy conversation with daughter and again 04/17/2025-they are all in agreement that comfort care/supportive care/not hospice is desired at this point until sister gets tracheostomy revision
Dr. Guevara had long conversation with patient, daughter, hospitalist-they want continued supportive care with emphasis on comfort, do not believe they could go home as they do not have enough help with her finances to hire help-continue to want
supportive care until couple days after other daughters tracheal surgery-emotional support provided
Dr. Guevara had conversation with patient and daughter at the bedside 04/19/2025-no change in supportive care with an emphasis on comfort
Dr. Guevara updated at the bedside 04/20/2025 as well as 04/21/2025
Dr. Clemons updated the and daughter at bedside on 04/22/2025 and 04/23/2025
June 04/13/25: She is currently DNR and would not want to proceed with trach and PEG; But yet previous discussions regarding hospice, patient reports that she is not ready. I discussed this extensively in front of the patient and the daughter that
her goals of care do not align and that she is lacking insight into her condition overall. She has demonstrated very poor quality of life with frequent hospitalizations. She meets all the criteria for end-stage COPD. It would be helpful if the
family were to support her mentally to except her lung condition. They were agreeable to repeat hospice consult, this is placed.
I am not sure that she has a meaningful path to be discharged home safely if she is on nightly BiPAP and is unable to control CO2 levels. This may mean that she requires continuous BiPAP. The daughter understands, she notes that she has difficult
decision making at this time because her younger sister underwent trach and is having a surgery on 04/26. She wishes for her mother to be alive until then. I have implored the family to have meetings and to discuss her care.
June 04/14- Family mtg today including Diamond, Dr Ferris, /patient/daughter via phone. Daughter is not ready to accept that her mother is dying or end stage, despite the fact that all the providers here are in agreement that this is her
prognosis. Patient has deferred her choice to her daughter. They wish to speak to Dr Guevara, we will notify him. This may need to involve ethics consult.
June 04/15- Family was receptive to comfort measures but still had not formally decided.
June 04/16-Daughter now states they want to check with insurance, wait for patient to sign paperwork/will, have her other daughter visit, and speak with Dr Guevara before they decide on comfort
They still wish for her to stay alive until 04/26. is asking repetitive questions that we reviewed before, he appears to lack insight into her condition completely.
Diagnostic Data
Chest X-Ray: 04/13/25- 1. Clear lungs. 2. No significant change compared to prior study.
CT Scan: CHEST 12/24/24- No evidence of central pulmonary embolism. Suspected changes of emphysema. Overall peripheral prominent size of pulmonary interstitial markings widespread bilaterally at least in part could be chronic. Acute interstitial
pneumonitis cannot be excluded. No focal parenchymal consolidation, pneumothorax or pleural effusion.
Echo: 11/14/24- Low normal LV systolic function with left ventricular ejection fraction estimated by Juarez's method 50% Normal left ventricular wall thickness Normal diastolic function. Normal atrial dimensions Aortic valve poorly visualized with
mildly thickened leaflets consistent with aortic sclerosis without stenosis. No significant aortic insufficiency. Trace mitral and tricuspid insufficiency Unable to estimate right heart pressures due to paucity of TR jet. No pericardial effusion
No prior study available for comparison
PFT's: 12/26/24- FEV1 was .034ml / 19% predicted. FVC was 1.67L / 73% predicted. Very severe obstruction.
Reports and relevant images were personally reviewed.
Total time spent today was 51 minutes for this encounter. Time includes reviewing laboratory test/imaging results, reviewing pertinent medical records, obtaining and reviewing medical history, performing an appropriate exam, ordering medications,
tests and procedures. Time also includes documentation of this encounter, coordinating patient care and communicating with other healthcare professionals. Total time does not include separately billed tests performed on this date of service.
Subjective Data
-
Date of Service:
Date of Service: April 27, 2025
Chief Complaint: Pulmonary Follow Up and Dyspnea Follow Up
Subjective:
refusing treatment, reportedly argumentative with family/staff
no clear change in clinical status
Objective Data
Data Reviewed
Vital Signs / I&O / Oxygen:
Vital Signs
Temp Pulse Resp BP Pulse Ox
97.9 F 88 18 120/97 96
04/27/25 08:10 04/27/25 06:00 04/27/25 06:00 04/27/25 06:00 04/27/25 06:00
Intake and Output
04/26/25 04/27/25 04/28/25
06:59 06:59 06:59
Intake Total 960 / 960 360 / 360
Balance 960 / 960 360 / 360
SaO2 96
Nasal Cannula flow liters per 4
minute
Physical Exam
General: Respiratory Distress (n), Comfortable and Other (NAD, Thin appearing)
HEENT: Normocephalic, Anicteric and Moist Mucous Membranes
Cardiovascular: S1-S2, Regular Rhythm and Peripheral Edema (n)
Respiratory: Clear, Wheeze (n), Crackles (n), Rhonchi (n), Non-Labored Respirations and Other (Diminished breath sounds bilaterally)
GI: Soft, Non Distended and Non Tender
Neurology: Awake, Alert, Oriented and Tremors (n)
Skin: Warm, Dry, Cyanosis (n) and Jaundice (n)
Labs/Micro/Reports
Lab Data
04/27/25 05:33
04/27/25 05:33
--- NOTE | 2025-04-27 13:35 | PTCARENOTE ---
Patient rang call colon. When RN entered room, pt had BiPAP off and machine was beeping. Patient reports that her friend is here, brought her food and she wants the mask off. I reiterated that RT and patient made a plan to keep the BiPAP on until
1530 since patient had mask off for long time this morning (0850-11:55). Palliative care spent an extended time in room this morning extending time off BiPAP. Patient then reports that RT knew her friend was coming and that she was allowed off if
her friend came. TT to RT who reports she did not tell her this and they would have not made the plan to stay on until 1530 then if so. Patient asking for about an hour off BiPAP while her friend is here. Pt's then states well maybe only a
half hour or 45 minutes. I advised will relay to RT but educated patient and family that for safety and to be able to manage care for all our patients, BiPAP use needs to be consistent and we're not able to come in repeatedly to place and remove
BiPAP on demand. Patient and family verbalized understanding.
--- NOTE | 2025-04-27 15:04 | W.PN.HOSP.TC ---
Today's Communication/Plan
-
Ongoing GOC conversation; disposition planning
appreciate efforts from all members of patient care
Assessment / Plan
Assessment / Plan
Pt is a 74yo F with a hx of severe end-stage COPD, chronic hypercapneic respiratory failure, RA, paroxysmal afib, & lymphedema who presented 12/ w worsening dyspnea at home (on bipap at night & 4L O2 at home), found to have acute on chronic COPD
exacerbation with hypercapnia, now awaiting decision around hospice.
#Acute on chronic severe COPD exacerbation
#End-stage COPD in s/o 40+ yr tobacco hx
#Acute on chronic hypercapnic/hypoxemic respiratory failure
Patient has had 4 hospitalizations for COPD exacerbations within the last 5 months[address] Guevara. Has declined lung transplant in past. On arrival to ED 04/13, ABG obtained with pH 7.33, pCO2 81, bicarb 42 satting 99%. She was admitted to
ICU & placed on continuous BiPAP. Workup for infectious etiology negative.
Remains on BiPAP for extensive part of the day
- Continue PO decadron 10mg daily (6mg qam and 4mg qpm)
- Continue home regimen of theophylline, azithromycin, Brovana/budesonide nebs, ipratropium albuterol nebulizers PRN, phosphodiesterase inhibitor, Spiriva
- Continue home dose of azithromycin 250 mg MWF
- Continue continuous BiPAP with 30-90min breaks during day
- Pending ongoing discussions around LTACH vs. inpatient hospice vs. home hospice - Will await decision
#Migraine, improving
Today - pt c/o migraine, lightheadedness. Daily nurtec not working sufficiently. Rizatriptan yesterday helped.
- Continue tylenol & daily nurtec
#Chronic
#Paroxysmal atrial fibrillation - not on AC, continue diltiazem PRN
#H/o RA - continue home sulfasalazine
#Anxiety & depression - continue sertraline
#History of iron deficiency anemia - TIBC wnl, Iron wnl, Ferritin wnl
#Global
- DVT prophylaxis: Lovenox subQ
- Code: DNR
- Diet: regular
- Dispo: see above re: LTACH vs. hospice case mgmt discussion ; Palliative consulted and spoke to daughter 04/27 and now following. I Had extensive conversation with the patient and family; Patient understands poor prognosis and needs to iron out a
few things with her family at home prior to switch to hospice. Does not want BiPAP in hospice but is questioning ability on palliative. Adamantly refusing facility, and wants to go home despite education to all parties regarding risks, and poor
prognosis - especially if going home. Family, including daughter accept risks. Conversation ongoing.
Anticipated Discharge: > 48 hours
Subjective/Interval History
-
Date of Service: April 27, 2025
No change in plans. Palliative care had an extensive conversation with family. No acute events overnight
Objective Data
-
Labs:
Laboratory Results
04/27/25
05:33
WBC 14.4 H
Hgb 13.0
Hct 40.4
Plt Count 275
Sodium 133 L
Potassium 4.2
Chloride 96 L
Carbon Dioxide 33 H
BUN 20 H
Creatinine 0.4 L
Glucose 117 H
Calcium 9.0
Vital Signs:
Vital Signs
Temp Pulse Resp BP Pulse Ox
97.9 F 113 32 139/91 95
04/27/25 12:57 04/27/25 14:00 04/27/25 14:00 04/27/25 14:00 04/27/25 13:32
I&O
04/26/25 04/27/25 04/28/25
06:59 06:59 06:59
Intake Total 960 / 960 360 / 360
Balance 960 / 960 360 / 360
Review of Systems
-
History Source: Patient
All other systems: Not reviewed unless documented
Physical Exam
-
General: Appears Chronically Ill and Cachectic
HEENT: Normocephalic and Atraumatic
Respiratory: Clear to Auscultation, Wheezes (upper airway expiratory wheeze) and Other (bipap on)
Cardiac: Regular Rhythm
GI: Nontender
Musculoskeletal: No Edema and Clubbing
Skin: Warm and Dry
Neuro: Awake and Alert
Psych: Anxious
Data Reviewed
-
Diagnostic Radiology: Report Reviewed by me
Labs: Labs Reviewed by me
[2025-04-27] MEDS: NON-FORMULARY ITEM 75 MG PO (15:27)
--- NOTE | 2025-04-27 16:01 | W.PN.PAL2 ---
Today's Communication
-
Family requesting meeting with PT current hospitalist and palliative care at 1pm Thursday.
Will continue GOC discussion at that meeting
Assessment / Plan
-
Assessment/Plan:
Patient is a 74 YO F who has baseline end stage COPD who was on maximal medical therapy as out patient but with repeated rehospitalization 4 hospitalizations in the last 6 months and dependent on noninvasive mechanical ventilation who palliative
care was consulted to help further understand her goals as Pt had declined transplant and advanced therapies but now with no safe dc plan.
See GOC discussion above, Pt is at risk for rehospitalizations, she however shares that she wants to avoid return to hospital if she can be supported at home with services to help manage whatever acute respirtory symptoms she has, she would however
not want to stop any of her present medications nor wants to use opioids or anxiolytics to manage her symptoms because they have done research and there has been different opinions from her pulmonologists about if opioids will help her, I corrected
info about same, when Palliative care services explained to Pt that we are an extra layer of support and not an emmergent service, do not provide 24/7 coverage for emmergent situations versus hospice which will ensure pT wish not to return to
hospital and be managed 24/7 coverage family shares they would not want hospice services, they have however requested I help tell them which medications are covered by hospice or not and bring same info to tomorrow meeting, they would like a family
meeting with Hospitalist and palliative care physician 1pm tomorrow to further ask questions.
Goals of Care Discussion
-
Individuals Present for Discussion & Relationship to Patient:
Pt, , PC Physician and daughter Paul on Pt request( Daughter Paul spoke mostly on behalf of patient and Pt did not refuse, daughter shared ' I do not want you to have this converstion without me and when I am not available don't continue '
and Pt was in agreement>
Patient able to participate in discussion at time of visit: Yes
Patient's Information Preferences: Defer to Family
Patient Goals
I asked what Pt understood of her present clinical situation and she shares she knows she has end stage COPD, stated hsmanjit has been told that for multiple years now, I shared we are not where we used to be with her decline and now more dependent on
BIPAP, I shared that with the planned dc what would plan be if she had an acute event in the night and had stated she did not want to return to hospital, she understands that family might not be able to manage that situation, I shared that some
patients who wish to focus on comfort and are not interested in heroic procedures would chose to rather focus on being comfortable at home with medications and support in home, I shared that with end stage COPD she would be eligible for hospice
services and can focus on being comfortable at home, Pt and family multiple times in mention that they believe the hospital was trying to force them out and had mentioned hospice in context of ' desiring that Pt chose ', ' a gas chamber
on another hospital floor', I shared that infact we do not hasten in hospice, then daughter shares that they have had discussions with hospice in past but did not want that because ' all or some of patient medications would be dc and instead
she would be given opioids and benzos with intention not to treat or make comfortable but to make her unaware and sedated thereby hastening , daughter states a crabbing machine operator had told her that if Pt does not take all her present meds she would
pass sooner than if on them, explored what Pt hoped for with the meds since it was not going to fix her end stage COPD, to this Pt stated she is hoping to get more time to be with family, we talked about quality over quantity but Pt defered to
daughter who stated they wanted quantity too as well as quality, Pt goals appear indeterminate as she states she wants to focus on comfort but does not want to de-escalate care at this time or deprescribe any medications she is on, would want gto
continue PT/OT. I explored what mattered to her and she stated to show her family that she did all she could to be alive for them, she wants to be alive enough to give family a closure.
When it was clear buttermaker helper goals appeared not determinate, I explored immediate post dc goals, I shared that with present plan to go home was not going to prevent return to ER if there was a medical emmergency, daughter shared that ' It is Pt right
to return to ER and hospital cannot deny pt that right', I shared it would not be right to not let her know that she could have a period of suffering in respiratory distress before getting emmergently into ER with the time from home to ER and Pt
daughter stated ' we monica take it a day at a time', Pt did not refute any of these and instead agreed that indeed there is possibility of that acting, she stated to let them try that and if they see it is not working, ' we can transition to hospice',
I made clear that this was not an optimal plan as we did not have to allow pt suffer a period before accessing comfort based approach.
Pain & Symptom Assessment
Patient Symptoms
Patient Symptoms: Dyspnea
Objective Data
-
Objective Data:
Vital Signs
Temp Pulse Resp BP Pulse Ox
97.9 F 113 32 139/91 96
04/27/25 12:57 04/27/25 14:00 04/27/25 14:00 04/27/25 14:00 04/27/25 15:13
Laboratory Results
04/27/25 05:33
04/27/25 05:33
PT 14.0 Sec (11.4-14.6) 04/14/25 03:38
INR 1.10 04/14/25 03:38
APTT 29.6 Sec (23.4-35.0) 04/14/25 03:38
Total Protein 6.1 g/dl (6.3-8.2) L 04/17/25 05:47
Albumin 3.9 g/dl (3.5-5.0) 04/17/25 05:47
Palliative Performance Scale
Palliative Performance Scale:
PPS Level Ambulation Activity & Evidence of Disease Self Care Intake Conscious Level
100% Full Normal Activity & Work; Full Intake Full
No Evidence of Disease
90% Full Normal Activity & Work; Full Normal Full
Some Evidence of Disease
80% Full Normal Activity with Effort Full Normal or Full
Some Evidence of Disease Reduced
70% Reduced Unable Normal Job/Work Full Normal or Full
Significant Disease Reduced
60% Reduced Unable Hobby/Housework Occasional Normal or Full or Confusion
Significant Disease Assistance Reduced
50% Mainly Sit/Lie Unable to do Any Work Considerable Normal or Full or Confusion
Extensive Disease Assistance Req'd Reduced
40% Mainly in Bed Unable to do Most Activity Mainly Assistance Normal or Full or Drowsy;
Extensive Disease Reduced +/- Confusion
30% Totally Bed Unable to do Any Activity Total Care Normal or Full or Drowsy;
Bound Extensive Disease Reduced +/- Confusion
20% Totally Bed Bound Unable to do Any Activity Total Care Minimal to Full or Drowsy;
Extensive Disease Sips +/- Confusion
10% Totally Bed Bound Unable to do Any Activity Total Care Mouth Care Drowsy or Coma;
Extensive Disease Only +/- Confusion
0%
PPS Score Level:
Physical Exam
-
General: Appears Chronically Ill and Other (frail appearing)
HEENT: Normocephalic and Atraumatic
Respiratory: Wheezes, Decreased Breath Sounds and Other (tachypnic)
Cardiac: Regular Rhythm and S1/S2
Peripheral Vascular: No Edema
GI: Nontender and Nondistended
Skin: Warm and Dry
Neuro: Awake and AO x 3
Psych: Calm
Care Reviewed
Data Reviewed
Medical Tests: I reviewed
Reviewed with: Patient, Family and Physician
[2025-04-27] MEDS: LOVENOX 30 MG SC (18:27)
[2025-04-27] MEDS: NON-FORMULARY ITEM 3 UNIT INH (19:22)
[2025-04-27] MEDS: ZOLOFT 50 MG PO (21:34)
[2025-04-27] MEDS: LIDOCAINE 4% PATCH 1 PATCH TOPICAL (21:34)
[2025-04-27] MEDS: MELATONIN 5 MG PO (21:34)
[2025-04-27] MEDS: NON-FORMULARY ITEM 200 MG PO (21:35)
--- NOTE | 2025-04-27 22:58 | PTCARENOTE ---
Pt AAOx3 able to make needs known. Pt bed side at this time. Pt has no complaints at this time. Call colon within reach. bed in lowest position.
[2025-04-28] VITALS (17 sets, daily range): BP systolic 106–152; BP diastolic 52–100; PULSE 2–115; BMI 18.0
[2025-04-28] MEDS: DUONEB 3 ML INH ×5 (00:54→19:44)
[2025-04-28] MEDS: TYLENOL 650 MG PO (01:51)
[2025-04-28 04:59] LABS: Hematocrit 46.0 % (37.0-47.0); Hemoglobin 14.1 g/dL (12.0-16.0); Mean Corp Hgb Conc. 30.7 g/dL (33.0-37.0); Mean Corpuscular Volume 93.9 fL (81.0-99.0); Platelet Count 292 10^3/uL (130-400); Red Cell Dist. Width 15.0 % (11.5-14.5)
[2025-04-28 05:41] LABS: ALT (SGPT) 27 U/L (0-35); AST (SGOT) 28 U/L (14-36); Albumin 4.4 g/dl (3.5-5.0); Alkaline Phosphatase 100 U/L (38-126); Blood Urea Nitrogen 27 mg/dl (7-17); Calcium 9.5 mg/dl (8.4-10.2); Carbon Dioxide 36 mmol/L (22-30); Chloride 92 mmol/L (98-107); Estimated Creatinine Clearance 53 ml/min; Glucose 145 mg/dl (70-99); Potassium 4.7 mmol/L (3.5-5.1); Sodium 135 mmol/L (135-145); Total Protein 6.6 g/dl (6.3-8.2); eGFR > 60.00
[2025-04-28] MEDS: PULMICORT 0.5 MG INH ×2 (07:36→19:44)
[2025-04-28] MEDS: NON-FORMULARY ITEM 1 UNIT INH (07:38)
[2025-04-28] MEDS: DECADRON 4 MG PO (08:50)
[2025-04-28] MEDS: MUCINEX 1200 MG PO ×2 (08:50→21:16)
[2025-04-28] MEDS: THERAGRAN 1 TABLET PO (08:51)
[2025-04-28] MEDS: RESTASIS 0.05% OPHTHALMIC EMULSION 1 DROPS BOTH EYES ×2 (08:51→21:15)
[2025-04-28] MEDS: VITAMIN B-12 50 MCG PO (08:51)
[2025-04-28] MEDS: NON-FORMULARY ITEM 1000 MG PO (08:52)
[2025-04-28] MEDS: NON-FORMULARY ITEM 20 MG PO (08:53)
[2025-04-28] MEDS: VITAMIN C 1000 MG PO (09:06)
[2025-04-28] MEDS: VITAMIN D3 (cholecalciferol) 25 MCG PO (09:07)
--- NOTE | 2025-04-28 09:14 | W.PN.PUL3 ---
Today's Communication / Plan
-
Transition to PO prednisone to reduce dosing
Continue care as is, without escalation
Family Mtg planned for 1 PM today w/ pall care
We have no further recommendations at this time, I have encouraged her to make a decision today
We will follow peripherally as the care dictates, will see as needed
Assessment
-
74-year-old female with previous history of severe end-stage COPD, chronic hypoxemic and hypercarbic respiratory failure on BiPAP, presenting to ER with worsening shortness of breath. She had been using her BiPAP nightly, noticed progressive
shortness of breath in less than 16 hours after usage. Was previously admitted and discharged on 03/24/2025, 02/22/2025, 12/28/2024, 11/14/2024 for similar. Hospice was discussed on previous hospitalizations but patient was not ready. She was placed
on morphine at home which was discontinued. On arrival ABG obtained with pH 7.33, pCO2 81, bicarb 42 satting 99%. She is placed on continuous BiPAP. She is a DNR. Admitted to ICU for tenuous respiratory status.
Acute on chronic hypoxic and hypercarbic respiratory failure
End-stage COPD with recurrent admissions
Acute on chronic shortness of breath
Pulmonary cachexia
Conditions present prior admission:
Advanced end-stage COPD: 4 L nasal cannula, noninvasive mechanical ventilation-chronic hypoxemic and hypercapnic respiratory failure
Up until recently followed at [facility]- Dr. Shi, she was denied transplant
PFT 12/2024: FEV1 was 0.34 ml / 19% predicted.
Former smoker, 40 PYs
Rheumatoid arthritis
Chronic anemia
Hypertension
Anxiety
Osteoporosis
Atrial Fibrillation
Plan
Patient has baseline severe COPD, end stage, on maximal medical therapy as out patient-4 hospitalizations in the last 6 months
Outpatient COPD regimen includes: Low-dose theophylline, Azithromycin for anti-inflammatory properties, Brovana/budesonide nebulizers, Ipratropium/albuterol nebulizers as needed, Ohtuvayre and Spiriva. Also been on chronic low-dose prednisone
therapy (5 mg PO bid) and was started on noninvasive mechanical ventilation 12/2024
She has been seen by Darshan and declined transplant and advanced therapies
She is maintained on 4 L nasal cannula chronically at baseline
Acute on chronic hypercapnic respiratory failure noted
Respiratory status remains quite tenuous-overall BiPAP dependent with liberation for up to 4-6 hours intermittently throughout the daytime as tolerated
She has been intermittently compliant with BIPAP and admits that at times she simply does not want to do it anymore, she had maintained use between 12a-5am.
She has failed outpatient BIPAP management
She is now on continous use with short breaks throughout the day
Home Ohtuvayre nebulizers will begin at family request 04/21/2025-Dr Guevara has told them I do not think it will be a 'game changer'
DuoNebs and budesonide continue
Decadron-on 4mg PO BID; transition to PO prednisone
We discussed biologics such as Dupixent however this is unlikely to change her prognosis, not can be feasibly do this if she cannot remain stable as OP for follow-up
I do not think any additional medications/treatment while change outcome--at this time, I will not offer any new medications
She does not wish to pursue tracheostomy tube/chronic ventilator facility
This was confirmed on numerous occasions
She is DNR
Further GOC discussions are noted below--the daughter understands that there is not a safe path home without readmission--we have thoroughly reviewed every option to all 3 (patient, and daughter) including inpatient hospice, outpatient
hospice and comfort measures (repeatedly and at length with multiple providers)
The family wished to wait until her other daughter's surgery 04/26 but are still not ready to make decisions despite our accommodations, and now wish to have time through the weekend, they were told they needed to decide by 04/28--the daughter
stated, 'we will see where we are when he calls on 04/28.'
I discussed further goals of care 04/25, I do observe that the 3 of them do not seem to be on the same page
After long conversation 04/26 with patient-she expressed interest in going home and readmission when she decompensates, I relayed this to team
Pall care consult obtained- await discussions
It is seemingly clear to me that they do not wish or intend to enter into comfort care or hospice, against all our collective recommendations, the stated they are not going to
Family Mtg planned for 1PM today
Discussions
Dr. Guevara had long discussion with patient and at the bedside 04/17/2025-she wishes to be comfortable, DNR, however, wants to be alive if at all possible through her daughter Marietta's tracheostomy revision surgery which is scheduled for
04/26/2025 at [facility].
She would like to continue with supportive care with an emphasis on comfort but not ready to go hospice or discontinue supportive care
Dr. Guevara had separate lengthy conversation with daughter and again 04/17/2025-they are all in agreement that comfort care/supportive care/not hospice is desired at this point until sister gets tracheostomy revision
Dr. Guevara had long conversation with patient, daughter, hospitalist-they want continued supportive care with emphasis on comfort, do not believe they could go home as they do not have enough help with her finances to hire help-continue to want
supportive care until couple days after other daughters tracheal surgery-emotional support provided
Dr. Guevara had conversation with patient and daughter at the bedside 04/19/2025-no change in supportive care with an emphasis on comfort
Dr. Guevara updated at the bedside 04/20/2025 as well as 04/21/2025
Dr. Clemons updated the and daughter at bedside on 04/22/2025 and 04/23/2025
June 04/13/25: She is currently DNR and would not want to proceed with trach and PEG; But yet previous discussions regarding hospice, patient reports that she is not ready. I discussed this extensively in front of the patient and the daughter that
her goals of care do not align and that she is lacking insight into her condition overall. She has demonstrated very poor quality of life with frequent hospitalizations. She meets all the criteria for end-stage COPD. It would be helpful if the
family were to support her mentally to except her lung condition. They were agreeable to repeat hospice consult, this is placed.
I am not sure that she has a meaningful path to be discharged home safely if she is on nightly BiPAP and is unable to control CO2 levels. This may mean that she requires continuous BiPAP. The daughter understands, she notes that she has difficult
decision making at this time because her younger sister underwent trach and is having a surgery on 04/26. She wishes for her mother to be alive until then. I have implored the family to have meetings and to discuss her care.
June 04/14- Family mtg today including Diamond, Dr Ferris, /patient/daughter via phone. Daughter is not ready to accept that her mother is dying or end stage, despite the fact that all the providers here are in agreement that this is her
prognosis. Patient has deferred her choice to her daughter. They wish to speak to Dr Guevara, we will notify him. This may need to involve ethics consult.
June 04/15- Family was receptive to comfort measures but still had not formally decided.
June 04/16-Daughter now states they want to check with insurance, wait for patient to sign paperwork/will, have her other daughter visit, and speak with Dr Guevara before they decide on comfort
They still wish for her to stay alive until 04/26. is asking repetitive questions that we reviewed before, he appears to lack insight into her condition completely.
Diagnostic Data
Chest X-Ray: 04/13/25- 1. Clear lungs. 2. No significant change compared to prior study.
CT Scan: CHEST 12/24/24- No evidence of central pulmonary embolism. Suspected changes of emphysema. Overall peripheral prominent size of pulmonary interstitial markings widespread bilaterally at least in part could be chronic. Acute interstitial
pneumonitis cannot be excluded. No focal parenchymal consolidation, pneumothorax or pleural effusion.
Echo: 11/14/24- Low normal LV systolic function with left ventricular ejection fraction estimated by Juarez's method 50% Normal left ventricular wall thickness Normal diastolic function. Normal atrial dimensions Aortic valve poorly visualized with
mildly thickened leaflets consistent with aortic sclerosis without stenosis. No significant aortic insufficiency. Trace mitral and tricuspid insufficiency Unable to estimate right heart pressures due to paucity of TR jet. No pericardial effusion
No prior study available for comparison
PFT's: 12/26/24- FEV1 was .034ml / 19% predicted. FVC was 1.67L / 73% predicted. Very severe obstruction.
Reports and relevant images were personally reviewed.
Total time spent today was 45 minutes for this encounter. Time includes reviewing laboratory test/imaging results, reviewing pertinent medical records, obtaining and reviewing medical history, performing an appropriate exam, ordering medications,
tests and procedures. Time also includes documentation of this encounter, coordinating patient care and communicating with other healthcare professionals. Total time does not include separately billed tests performed on this date of service.
Subjective Data
-
Date of Service:
Date of Service: April 28, 2025
Chief Complaint: Pulmonary Follow Up and Dyspnea Follow Up
Subjective:
No changes clinically
Remains the same
Objective Data
Data Reviewed
Vital Signs / I&O / Oxygen:
Vital Signs
Temp Pulse Resp BP Pulse Ox
97.5 F 86 20 135/52 98
04/28/25 08:45 04/28/25 07:40 04/28/25 07:40 04/28/25 06:00 04/28/25 07:40
Intake and Output
04/27/25 04/28/25 04/29/25
06:59 06:59 06:59
Intake Total 360 / 360 1800 / 1800
Balance 360 / 360 1800 / 1800
SaO2 98
Nasal Cannula flow liters per 7
minute
Physical Exam
General: Respiratory Distress (n), Comfortable and Other (NAD, Thin appearing)
HEENT: Normocephalic, Anicteric and Moist Mucous Membranes
Cardiovascular: S1-S2, Regular Rhythm and Peripheral Edema (n)
Respiratory: Clear, Wheeze (n), Crackles (n), Rhonchi (n), Non-Labored Respirations and Other (Diminished breath sounds bilaterally)
GI: Soft, Non Distended and Non Tender
Neurology: Awake, Alert, Oriented and Tremors (n)
Skin: Warm, Dry, Cyanosis (n) and Jaundice (n)
Labs/Micro/Reports
Lab Data
04/28/25 04:44
04/28/25 04:44
--- NOTE | 2025-04-28 15:04 | VNURNOTE ---
Chart reviewed. PM-[facility] resumption referral in [facility].
--- NOTE | 2025-04-28 15:10 | W.PN.HOSP.TC ---
Addendum entered and electronically signed by Michael Montejo MD 04/28/25 15:43:
Patient is confined to 1 level of the home environment and there is no toilet on that level
Original Note:
Today's Communication/Plan
-
[facility]
Had extensive conversation with patient, daughter Paul, alongside palliative care. Extensive discussion regarding goals were performed. Plan is for discharge on palliative care with as needed anxiolytics, opiates if patient starts decompensating
at home and at that time decision would be made if patient would like to transition to hospice at home versus coming back to the hospital for inpatient hospice. I discussed my concern for christine viral/bacterial pneumonia with her already
compromised respiratory state. Anticipate discharge home on palliative on Thursday with close follow-up with palliative care as Dr. Phan will see the patient on May 03. Engaged with spring encaser to set up family requests - in order to streamline
discharge on Thursday.
Assessment / Plan
Assessment / Plan
Pt is a 74yo F with a hx of severe end-stage COPD, chronic hypercapneic respiratory failure, RA, paroxysmal afib, & lymphedema who presented 04/13 w worsening dyspnea at home (on bipap at night & 4L O2 at home), found to have acute on chronic COPD
exacerbation with hypercapnia, now awaiting decision around hospice.
#Acute on chronic severe COPD exacerbation
#End-stage COPD in s/o 40+ yr tobacco hx
#Acute on chronic hypercapnic/hypoxemic respiratory failure
Patient has had 4 hospitalizations for COPD exacerbations within the last 5 months[address] Guevara. Has declined lung transplant in past. On arrival to ED 04/13, ABG obtained with pH 7.33, pCO2 81, bicarb 42 satting 99%. She was admitted to
ICU & placed on continuous BiPAP. Workup for infectious etiology negative.
Remains on BiPAP for extensive part of the day
- Continue PO decadron 10mg daily (6mg qam and 4mg qpm)
- Continue home regimen of theophylline, azithromycin, Brovana/budesonide nebs, ipratropium albuterol nebulizers PRN, phosphodiesterase inhibitor, Spiriva
- Continue home dose of azithromycin 250 mg MWF
- Continue continuous BiPAP with 30-90min breaks during day
- Pending ongoing discussions around LTACH vs. inpatient hospice vs. home hospice - Will await decision
#Migraine, improving
Today - pt c/o migraine, lightheadedness. Daily nurtec not working sufficiently. Rizatriptan yesterday helped.
- Continue tylenol & daily nurtec
#Chronic
#Paroxysmal atrial fibrillation - not on AC, continue diltiazem PRN
#H/o RA - continue home sulfasalazine
#Anxiety & depression - continue sertraline
#History of iron deficiency anemia - TIBC wnl, Iron wnl, Ferritin wnl
#Global
- DVT prophylaxis: Lovenox subQ
- Code: DNR
- Diet: regular
- Dispo: see above re: LTACH vs. hospice case mgmt discussion ; Palliative consulted and spoke to daughter 04/27 and now following. I Had extensive conversation with the patient and family; Patient understands poor prognosis and needs to iron out a
few things with her family at home prior to switch to hospice. Does not want BiPAP in hospice but is questioning ability on palliative. Adamantly refusing facility, and wants to go home despite education to all parties regarding risks, and poor
prognosis - especially if going home. Family, including daughter accept risks. Conversation ongoing.
04/28�had extensive conversation with patient, daughter Paul, alongside palliative care. Extensive discussion regarding goals were performed. Plan is for discharge on palliative care with as needed anxiolytics, opiates if patient starts
decompensating at home and at that time decision would be made if patient would like to transition to hospice at home versus coming back to the hospital for inpatient hospice. I discussed my concern for christine viral/bacterial pneumonia with
her already compromised respiratory state. Anticipate discharge home on palliative on Thursday with close follow-up with palliative care as Dr. Phan will see the patient on May 03. Engaged with spring encaser to set up family requests - in order
to streamline discharge on Thursday.
Anticipated Discharge: 24 - 48 hours
Subjective/Interval History
-
Date of Service: April 28, 2025
No acute events overnight. Had discussions with daughter, patient alongside palliative care this afternoon
Objective Data
-
Labs:
Laboratory Results
04/28/25
04:44
WBC 14.2 H
Hgb 14.1
Hct 46.0
Plt Count 292
Sodium 135
Potassium 4.7
Chloride 92 L
Carbon Dioxide 36 H
BUN 27 H
Creatinine 0.5 L
Glucose 145 H
Calcium 9.5
Total Bilirubin 0.3
AST 28
ALT 27
Alkaline Phosphatase 100
Vital Signs:
Vital Signs
Temp Pulse Resp BP Pulse Ox
98.2 F 86 20 135/52 97
04/28/25 11:55 04/28/25 07:40 04/28/25 07:40 04/28/25 06:00 04/28/25 12:10
I&O
04/27/25 04/28/25 04/29/25
06:59 06:59 06:59
Intake Total 360 / 360 1800 / 1800
Balance 360 / 360 1800 / 1800
Review of Systems
-
History Source: Patient
All other systems: Not reviewed unless documented
Physical Exam
-
General: Appears Chronically Ill and Cachectic
HEENT: Normocephalic and Atraumatic
Respiratory: Clear to Auscultation and Wheezes (upper airway expiratory wheeze)
Cardiac: Regular Rhythm
GI: Nontender
Musculoskeletal: No Edema and Clubbing
Skin: Warm and Dry
Neuro: Awake and Alert
Psych: Anxious
Data Reviewed
-
Diagnostic Radiology: Report Reviewed by me
Labs: Labs Reviewed by me
--- NOTE | 2025-04-28 15:19 | PTCARENOTE ---
yelling heard in pt room, pt is yelling at and daughter who are having a conversation away from her. They explain that he is [place] and they are away from sound of BIPAP to assure he hears and understands what is being reviewed. Daughter
leaving once plan of care and discharge plan is reviewed with . Pt states 'I don't like them having a private conversation' and then states ' I promise to behave' -Reviewed with pt, daughter and that they are feeling safe together
and they all confirm they feel safe. Patient describes event as a 'Mother daughter spat'.
--- NOTE | 2025-04-28 15:43 | W.PN.UPDATE ---
Update Note
Progress Note Update
Patient is confined to 1 level of the home environment and there is no toilet on that level
--- NOTE | 2025-04-28 16:10 | W.PN.PAL2 ---
Addendum entered and electronically signed by Natalia Phan MD 04/28/25 17:29:
Please send home on PO dilaudid 2mg tablet take 0.5 tablet q4h prn dyspnea as well as PO ativan 1mg tablet take 0.5 tablet q4h prn anxiety
Original Note:
Today's Communication
-
Extensive discussion with Pt, daughter Paul, Hospitalist Dr Montejo and bond underwriter, we explored Pt goals, identified emotions in the room and addressed same as well as answered all Pt and daughter questions/concerns. Pt again today sharing that she
understands that she is end stage COPD but is hoping that she can be alive to allow her younger daughter Sharmaine recuperate well from her trach revision and be able to live independently as well as allow her to accept the fact that she has
a terminal condition because he was even still sending her online info on possible medications that they could try for her end-stage COPD, I shared that I would not be surprised if she passes in 6 months or less which makes her hospice eligible and
be able to get the added psych-social support that hospice will offer in addition to the 01/12 safety net plan in case of an adverse respiratory event at off hours, Pt and daughter again sharing they would wait till that time and decide, I shared
that with being on palliative care services which is the service they are opting for, we focus on comfort and I would recommend that she and daughter have a rethink about opioids and anxyolitics in event of respiratory distress and daughter agreeing
to have it in case they need same. Overall Pt and daughter shared they just need more time to set things in place before they focus on only comfort based treatment and at this time will continue to seek life prolonging interventions. I have shared i
can see pt as soon as possible on dc.
Objective Data
-
Objective Data:
Vital Signs
Temp Pulse Resp BP Pulse Ox
98.2 F 86 20 135/52 97
04/28/25 11:55 04/28/25 07:40 04/28/25 07:40 04/28/25 06:00 04/28/25 12:10
Laboratory Results
04/28/25 04:44
04/28/25 04:44
PT 14.0 Sec (11.4-14.6) 04/14/25 03:38
INR 1.10 04/14/25 03:38
APTT 29.6 Sec (23.4-35.0) 04/14/25 03:38
Total Protein 6.6 g/dl (6.3-8.2) 04/28/25 04:44
Albumin 4.4 g/dl (3.5-5.0) 04/28/25 04:44
Palliative Performance Scale
Palliative Performance Scale:
PPS Level Ambulation Activity & Evidence of Disease Self Care Intake Conscious Level
100% Full Normal Activity & Work; Full Intake Full
No Evidence of Disease
90% Full Normal Activity & Work; Full Normal Full
Some Evidence of Disease
80% Full Normal Activity with Effort Full Normal or Full
Some Evidence of Disease Reduced
70% Reduced Unable Normal Job/Work Full Normal or Full
Significant Disease Reduced
60% Reduced Unable Hobby/Housework Occasional Normal or Full or Confusion
Significant Disease Assistance Reduced
50% Mainly Sit/Lie Unable to do Any Work Considerable Normal or Full or Confusion
Extensive Disease Assistance Req'd Reduced
40% Mainly in Bed Unable to do Most Activity Mainly Assistance Normal or Full or Drowsy;
Extensive Disease Reduced +/- Confusion
30% Totally Bed Unable to do Any Activity Total Care Normal or Full or Drowsy;
Bound Extensive Disease Reduced +/- Confusion
20% Totally Bed Bound Unable to do Any Activity Total Care Minimal to Full or Drowsy;
Extensive Disease Sips +/- Confusion
10% Totally Bed Bound Unable to do Any Activity Total Care Mouth Care Drowsy or Coma;
Extensive Disease Only +/- Confusion
0%
PPS Score Level:
Care Reviewed
Data Reviewed
Medical Tests: I reviewed
Reviewed with: Patient and Physician
--- NOTE | 2025-04-28 16:50 | CM ---
F/U: Meeting with patient/ Hospitalist happened today in the afternoon. [place] told the plan is DC on Thursday. CM met with daughter and have the follow requests (in bold is the results):
1. a new rollator.... told daughter that a patient with Medicare can only get 1 every 5 years, otherwise [facility] or [facility] wound be cheaper as the DME companies have to charge higher prices.
2. Two bedside commodes.... told daughter that a patient with Medicare can only get 1 every 5 years, even though patient does not have any, only can get one. Otherwise [facility] or [facility]
3. a tray table for the BIPAP... there is no such table so ([employer]), the company they work with already will have RT call the daughter this afternoon to discuss how they can move the BIPAP and what surface to put it on.
4. Written list of what I discussed... provided to the
5. Copy of order form for the commode...... provided to the
CM confirmed with [facility] that the order was received for the commode and it will be delivered 04/29- Thursday in the afternoon by calling the daughter Aiden, she is aware.
Beside table was offered for the family to buy out of pocket and they will talk to this RT from [employer] if its fine to use this for the BIPAP in the living room. Family will picker machine operator the patient on Thursday and [facility] was re-set up for the patient. PLAN:
Home w/ [employer] and [facility].
[2025-04-28] MEDS: LOVENOX 30 MG SC (17:28)
[2025-04-28] MEDS: NON-FORMULARY ITEM 75 MG PO (17:29)
[2025-04-28] MEDS: NON-FORMULARY ITEM 3 UNIT INH (19:44)
[2025-04-28] MEDS: LIDOCAINE 4% PATCH 1 PATCH TOPICAL ×2 (21:11→21:26)
[2025-04-28] MEDS: MELATONIN 5 MG PO (21:11)
[2025-04-28] MEDS: ZOLOFT 50 MG PO (21:11)
[2025-04-28] MEDS: NON-FORMULARY ITEM 200 MG PO (21:13)
[2025-04-28] MEDS: ZITHROMAX 250 MG PO (21:15)
--- NOTE | 2025-04-28 22:20 | PTCARENOTE ---
Assumed care of Pt from day RN. Pt very able to make her needs known. Pt repeatedly taking BiPAP off for drinks, snacks or 'breaks'. Education given on the needs for BiPAP as much as she can truly tolerate. Pt responding with understanding. Pt
talking to RN about going home Thursday. Pt appearing to have a positive outlook about the pending D/C. Pt bed side. Call colon within reach. bed in lowest position.
[2025-04-29] VITALS (15 sets, daily range): BP systolic 111–151; BP diastolic 52–89; PULSE 2–138; BMI 18.6
[2025-04-29] MEDS: DUONEB 3 ML INH ×5 (04:16→19:43)
[2025-04-29 06:31] LABS: ALT (SGPT) 30 U/L (0-35); AST (SGOT) 31 U/L (14-36); Albumin 3.6 g/dl (3.5-5.0); Alkaline Phosphatase 90 U/L (38-126); Blood Urea Nitrogen 28 mg/dl (7-17); Calcium 9.1 mg/dl (8.4-10.2); Carbon Dioxide 34 mmol/L (22-30); Chloride 97 mmol/L (98-107); Estimated Creatinine Clearance 53 ml/min; Glucose 101 mg/dl (70-99); Potassium 4.3 mmol/L (3.5-5.1); Sodium 134 mmol/L (135-145); Total Protein 5.8 g/dl (6.3-8.2); eGFR > 60.00
[2025-04-29 06:41] LABS: Hematocrit 40.1 % (37.0-47.0); Hemoglobin 12.7 g/dL (12.0-16.0); Mean Corp Hgb Conc. 31.7 g/dL (33.0-37.0); Mean Corpuscular Volume 95.9 fL (81.0-99.0); Platelet Count 229 10^3/uL (130-400); Red Cell Dist. Width 14.9 % (11.5-14.5)
[2025-04-29] MEDS: PULMICORT 0.5 MG INH ×2 (08:00→19:43)
[2025-04-29] MEDS: NON-FORMULARY ITEM 1 UNIT INH (08:00)
[2025-04-29] MEDS: DELTASONE 50 MG PO (08:42)
[2025-04-29] MEDS: TYLENOL 650 MG PO ×3 (08:42→17:16)
[2025-04-29] MEDS: RESTASIS 0.05% OPHTHALMIC EMULSION 1 DROPS BOTH EYES ×2 (08:43→21:55)
[2025-04-29] MEDS: MIRALAX 17 GRAMS PO (08:43)
[2025-04-29] MEDS: MUCINEX 1200 MG PO ×2 (08:43→21:55)
[2025-04-29] MEDS: NON-FORMULARY ITEM 20 MG PO (08:45)
[2025-04-29] MEDS: NON-FORMULARY ITEM 1000 MG PO (08:45)
[2025-04-29] MEDS: VITAMIN D3 (cholecalciferol) 25 MCG PO (11:44)
[2025-04-29] MEDS: VITAMIN C 1000 MG PO (11:44)
[2025-04-29] MEDS: CARDIZEM 30 MG PO ×3 (13:03→22:26)
--- NOTE | 2025-04-29 15:41 | W.PN.HOSP.TC ---
Today's Communication/Plan
-
Add back Diltiazem, Diuretics
Anticipate discharge tomorrow
Assessment / Plan
Assessment / Plan
Pt is a 74yo F with a hx of severe end-stage COPD, chronic hypercapneic respiratory failure, RA, paroxysmal afib, & lymphedema who presented 12/ w worsening dyspnea at home (on bipap at night & 4L O2 at home), found to have acute on chronic COPD
exacerbation with hypercapnia, now awaiting decision around hospice.
#Acute on chronic severe COPD exacerbation
#End-stage COPD in s/o 40+ yr tobacco hx
#Acute on chronic hypercapnic/hypoxemic respiratory failure
Patient has had 4 hospitalizations for COPD exacerbations within the last [address] Guevara. Has declined lung transplant in past. On arrival to ED 04/13, ABG obtained with pH 7.33, pCO2 81, bicarb 42 satting 99%. She was admitted to
ICU & placed on continuous BiPAP. Workup for infectious etiology negative.
Remains on BiPAP for extensive part of the day
- Continue steroid taper, home inhalers
- Continue home dose of azithromycin 250 mg MWF
- Continue continuous BiPAP with 30-90min breaks during day
- Plan to discharge on BiPAP home with palliative care, likely transition to hospice.
#Migraine, improving
Today - pt c/o migraine, lightheadedness. Daily nurtec not working sufficiently. Rizatriptan yesterday helped.
- Continue tylenol & daily nurtec
#Chronic
#Paroxysmal atrial fibrillation - not on AC, switch back to diltiazem standing and as needed
#H/o RA - continue home sulfasalazine
#Anxiety & depression - continue sertraline
#History of iron deficiency anemia - TIBC wnl, Iron wnl, Ferritin wnl
#Global
- DVT prophylaxis: Lovenox subQ
- Code: DNR
- Diet: regular
- Dispo: see above re: LTACH vs. hospice case mgmt discussion ; Palliative consulted and spoke to daughter 04/27 and now following. I Had extensive conversation with the patient and family; Patient understands poor prognosis and needs to iron out a
few things with her family at home prior to switch to hospice. Does not want BiPAP in hospice but is questioning ability on palliative. Adamantly refusing facility, and wants to go home despite education to all parties regarding risks, and poor
prognosis - especially if going home. Family, including daughter accept risks. Conversation ongoing.
04/28�ha extensive conversation with patient, daughter Paul, alongside palliative care. Extensive discussion regarding goals were performed. Plan is for discharge on palliative care with as needed anxiolytics, opiates if patient starts
decompensating at home and at that time decision would be made if patient would like to transition to hospice at home versus coming back to the hospital for inpatient hospice. I discussed my concern for christine viral/bacterial pneumonia with
her already compromised respiratory state. Anticipate discharge home on palliative on Thursday with close follow-up with palliative care as Dr. Phan will see the patient on May 03. Engaged with pillowcase turner to set up family requests - in order
to streamline discharge on Thursday.
tachycardia. Under review of notes, including nursing notes, patient refused diltiazem for tachycardia. Further due to question of hospice versus not, medications were switched on and off. At this point as patient will continue care,
and transition to palliative care tomorrow: with continued tachycardia, added back diltiazem standing and as needed. Also added back Aldactone as needed. Resume torsemide Thursday. These medications would not change prognosis of
patient
Anticipated Discharge: Within 24 hours
Subjective/Interval History
-
Date of Service: April 29, 2025
Tachycardic overnight
Objective Data
-
Labs:
Laboratory Results
04/29/25
05:49
WBC 11.8 H
Hgb 12.7
Hct 40.1
Plt Count 229 D
Sodium 134 L
Potassium 4.3
Chloride 97 L
Carbon Dioxide 34 H
BUN 28 H
Creatinine 0.4 L
Glucose 101 H
Calcium 9.1
Total Bilirubin 0.2
AST 31
ALT 30
Alkaline Phosphatase 90
Vital Signs:
Vital Signs
Temp Pulse Resp BP Pulse Ox
97.7 F 106 24 149/87 97
04/29/25 15:05 04/29/25 15:23 04/29/25 15:23 04/29/25 13:03 04/29/25 15:23
I&O
04/28/25 04/29/25 04/30/25
06:59 06:59 06:59
Intake Total 1800 / 1800 480 / 480 900 / 900
Balance 1800 / 1800 480 / 480 900 / 900
Review of Systems
-
History Source: Patient
All other systems: Not reviewed unless documented
Data Reviewed
-
Diagnostic Radiology: Report Reviewed by me
Labs: Labs Reviewed by me
[2025-04-29] MEDS: LOVENOX 30 MG SC (17:01)
[2025-04-29] MEDS: VALTREX 500 MG PO (17:16)
[2025-04-29] MEDS: NON-FORMULARY ITEM 75 MG PO (17:17)
--- NOTE | 2025-04-29 18:43 | PTCARENOTE ---
Patient care provided throughout the day and assessment completed in intervention. Pt with strong knowledge that she needs to wear BIPAP as much as possible to support severe chronic lung disease and preserve Resp effort. Pt persistent and often
finding another reason to delay reapplying the BIPAP. Pt's supportive in encouraging pt wear the BIPAP but this becomes a point of contention between them. Pt asks this RN to be the 'paraprofessional aide teacher' during an afternoon disagreement. This RN
reviewed communication techniques, communication challenges and ways to maneuver and manage during this transition to palliative care at home. pt and express understanding but pt is often demanding in a polite way. She needs to be redirected
to focus upon her health care. She does want to share her life story as she moves toward end of life process and time was provided to listen and enjoy the pt's life experience
[2025-04-29] MEDS: NON-FORMULARY ITEM 3 UNIT INH (19:43)
[2025-04-29] MEDS: LIDOCAINE 4% PATCH 1 PATCH TOPICAL ×2 (22:26→22:28)
[2025-04-29] MEDS: NON-FORMULARY ITEM 200 MG PO (22:27)
[2025-04-29] MEDS: MELATONIN 5 MG PO (22:27)
[2025-04-29] MEDS: ZOLOFT 50 MG PO (22:28)
[2025-04-30] VITALS (8 sets, daily range): BP systolic 99–138; BP diastolic 55–75; PULSE 2–102; BMI 19.0
[2025-04-30] MEDS: TYLENOL 650 MG PO (05:33)
[2025-04-30] MEDS: DUONEB 3 ML INH ×4 (05:51→16:26)
[2025-04-30 06:31] LABS: Hematocrit 43.9 % (37.0-47.0); Hemoglobin 13.3 g/dL (12.0-16.0); Mean Corp Hgb Conc. 30.3 g/dL (33.0-37.0); Mean Corpuscular Volume 95.6 fL (81.0-99.0); Platelet Count 263 10^3/uL (130-400); Red Cell Dist. Width 15.3 % (11.5-14.5)
[2025-04-30 06:46] LABS: ALT (SGPT) 31 U/L (0-35); AST (SGOT) 28 U/L (14-36); Albumin 4.1 g/dl (3.5-5.0); Alkaline Phosphatase 95 U/L (38-126); Blood Urea Nitrogen 24 mg/dl (7-17); Calcium 9.7 mg/dl (8.4-10.2); Carbon Dioxide 36 mmol/L (22-30); Chloride 99 mmol/L (98-107); Estimated Creatinine Clearance 56 ml/min; Glucose 102 mg/dl (70-99); Potassium 4.3 mmol/L (3.5-5.1); Sodium 140 mmol/L (135-145); Total Protein 6.4 g/dl (6.3-8.2); eGFR > 60.00
[2025-04-30] MEDS: PULMICORT 0.5 MG INH (07:25)
[2025-04-30] MEDS: NON-FORMULARY ITEM 1 UNIT INH (07:28)
--- NOTE | 2025-04-30 09:00 | PTCARENOTE ---
Received pt @ change of shift. Pt. AAOx3, very talkative; anxious; denies pain. SR/ST on monitor w PAC's and PVC's. SpO2 95% on BiPAP. Auscultated dim breath sounds posteriorly w exp wheeze. +BS, cachectic; tolerating meals; cont b/b; BSC prn. R
FA PIV patent, dressing c/d/i. Plan for d/c later today per MD team; pt. aware. remains @ bedside. Call isaiah gavin in reach.
[2025-04-30] MEDS: MUCINEX 1200 MG PO (09:29)
[2025-04-30] MEDS: RESTASIS 0.05% OPHTHALMIC EMULSION 1 DROPS BOTH EYES (09:31)
[2025-04-30] MEDS: DELTASONE 50 MG PO (09:31)
[2025-04-30] MEDS: CARDIZEM 30 MG PO ×2 (09:32→16:28)
[2025-04-30] MEDS: NON-FORMULARY ITEM 20 MG PO (09:33)
[2025-04-30] MEDS: NON-FORMULARY ITEM 1000 MG PO (09:34)
--- NOTE | 2025-04-30 12:46 | W.PN.HOSP.TC ---
Addendum entered and electronically signed by Michael Montejo MD 04/30/25 14:46:
[id number]
Original Note:
Today's Communication/Plan
-
DC home for Palliative Care (Instructed to call Palliative care Tomorrow 05/01). Dr. Phan from Palliative Care plan to visit patient on 05/03/25
prednisone taper and eventual transition back to home regimen
PO dilaudid 2mg tablet take 0.5 tablet q4h prn dyspnea as well as PO ativan 1mg tablet take 0.5 tablet q4h prn anxiety - instructed family if condition gets worse can certainly take this and decision made on home hospice/inpatient as per patients
request
Assessment / Plan
Assessment / Plan
Pt is a 74yo F with a hx of severe end-stage COPD, chronic hypercapneic respiratory failure, RA, paroxysmal afib, & lymphedema who presented 04/13 w worsening dyspnea at home (on bipap at night & 4L O2 at home), found to have acute on chronic COPD
exacerbation with hypercapnia, now awaiting decision around hospice.
#Acute on chronic severe COPD exacerbation
#End-stage COPD in s/o 40+ yr tobacco hx
#Acute on chronic hypercapnic/hypoxemic respiratory failure
Patient has had 4 hospitalizations for COPD exacerbations within the last 5 [address] Guevara. Has declined lung transplant in past. On arrival to ED 04/13, ABG obtained with pH 7.33, pCO2 81, bicarb 42 satting 99%. She was admitted to
ICU & placed on continuous BiPAP. Workup for infectious etiology negative.
Remains on BiPAP for extensive part of the day
- Continue steroid taper, home inhalers; 50mg prednisone - drop by 10mg every 4 days until back to home regimen
- Continue home dose of azithromycin 250 mg MWF
- Continue continuous BiPAP with 30-90min breaks during day
- Plan to discharge on BiPAP home with palliative care, likely transition to hospice.
#Migraine, improving
Today - pt c/o migraine, lightheadedness. Daily nurtec not working sufficiently. Rizatriptan yesterday helped.
- Continue tylenol & daily nurtec
#Chronic
#Paroxysmal atrial fibrillation - not on AC, added back diltiazem standing and as needed
#H/o RA - continue home sulfasalazine
#Anxiety & depression - continue sertraline
#History of iron deficiency anemia - TIBC wnl, Iron wnl, Ferritin wnl
#Global
- DVT prophylaxis: Lovenox subQ
- Code: DNR
- Diet: regular
- Dispo: see above re: LTACH vs. hospice case mgmt discussion ; Palliative consulted and spoke to daughter 04/27 and now following. I Had extensive conversation with the patient and family; Patient understands poor prognosis and needs to iron out a
few things with her family at home prior to switch to hospice. Does not want BiPAP in hospice but is questioning ability on palliative. Adamantly refusing facility, and wants to go home despite education to all parties regarding risks, and poor
prognosis - especially if going home. Family, including daughter accept risks. Conversation ongoing.
04/28�had extensive conversation with patient, daughter Paul, alongside palliative care. Extensive discussion regarding goals were performed. Plan is for discharge on palliative care with as needed anxiolytics, opiates if patient starts
decompensating at home and at that time decision would be made if patient would like to transition to hospice at home versus coming back to the hospital for inpatient hospice. I discussed my concern for christine viral/bacterial pneumonia with
her already compromised respiratory state. Anticipate discharge home on palliative on Thursday with close follow-up with palliative care as Dr. Phan will see the patient on May 03. Engaged with casey saw operator to set up family requests - in order
to streamline discharge on Thursday.
04/29�ha tachycardia. Under review of notes, including nursing notes, patient refused diltiazem for tachycardia. Further due to question of hospice versus not, medications were switched on and off. At this point as patient will continue care,
and transition to palliative care tomorrow: with continued tachycardia, added back diltiazem standing and as needed. Also added back Aldactone as needed. Resume torsemide Thursday. These medications would not change prognosis of
patient
More than 30 minutes spent in discharge including
Final examination of the patient
Summarizing hospital stay
Instructions for continuing care to all relevant caregivers
Preparation of discharge records, prescriptions, and referral forms
Total time spent (in minutes): 36
Anticipated Discharge: Today
Subjective/Interval History
-
Date of Service: April 30, 2025
no acute events overnight
Objective Data
-
Labs:
Laboratory Results
04/30/25
05:32
WBC 15.0 H
Hgb 13.3
Hct 43.9
Plt Count 263
Sodium 140
Potassium 4.3
Chloride 99
Carbon Dioxide 36 H
BUN 24 H
Creatinine 0.4 L
Glucose 102 H
Calcium 9.7
Total Bilirubin 0.4
AST 28
ALT 31
Alkaline Phosphatase 95
Vital Signs:
Vital Signs
Temp Pulse Resp BP Pulse Ox
98.7 F 103 21 138/67 95
04/30/25 11:12 04/30/25 12:00 04/30/25 12:00 04/30/25 12:00 04/30/25 12:00
I&O
04/29/25 04/30/25 05/01/25
06:59 06:59 06:59
Intake Total 480 / 480 1420 / 1420 360 / 360
Output Total 250 / 250
Balance 480 / 480 1170 / 1170 360 / 360
Review of Systems
-
History Source: Patient
All other systems: Not reviewed unless documented
Physical Exam
-
General: Appears Chronically Ill and Cachectic
HEENT: Normocephalic and Atraumatic
Respiratory: Clear to Auscultation and Wheezes (upper airway expiratory wheeze, chronic)
Cardiac: Regular Rhythm
GI: Nontender
Musculoskeletal: No Edema and Clubbing
Skin: Warm and Dry
Neuro: Awake and Alert
Psych: Anxious
Data Reviewed
-
Diagnostic Radiology: Report Reviewed by me
Labs: Labs Reviewed by me
--- NOTE | 2025-04-30 12:51 | W.DS.TRANS ---
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
-
Discharge Instructions:
Sleep Apnea Risk Intermediate
Discharge Diagnosis/Procedures
#Acute on chronic severe COPD exacerbation
#End-stage COPD in s/o 40+ yr tobacco hx
#Acute on chronic hypercapnic/hypoxemic
respiratory failure
#Paroxysmal atrial fibrillation
Activity As tolerated,No strenuous activity
Instructions:
Stand-Alone Forms:
Changes to Home Medications: Yes
Discharge Medications:
DC Medications w/original date entered in [facility]
arformoterol 15 mcg/2 mL solution for nebulization (Brovana) 2 ml inhalation R BID Lung/Breathing Issues 06/27/23
azithromycin 250 mg tablet 250 mg PO MOWEFR@1999 copd 06/27/23
budesonide 0.5 mg/2 mL suspension for nebulization 0.5 mg inhalation R BID Lung/Breathing Issues 06/27/23
cyclosporine 0.05 % eye drops in a dropperette (Restasis) 1 drp BOTH EYES BID dry eyes 06/27/23
ipratropium 0.5 mg-albuterol 3 mg (2.5 mg base)/3 mL nebulization soln 3 ml inhalation R QID Lung/Breathing Issues 06/27/23
ipratropium 20 mcg-albuterol 100 mcg/actuation mist for inhalation (Combivent Respimat) 1 puff inhalation R BIDPRN PRN sob 06/27/23
theophylline 200 mg capsule,extended release 24 hr (Eugene-24) 200 mg PO HS copd 06/27/23
tiotropium bromide 2.5 mcg/actuation mist for inhalation (Spiriva Respimat) 2 puff inhalation R HS copd 06/27/23
valacyclovir 500 mg tablet 500 mg PO HS viral infection 06/27/23
cholecalciferol (vitamin D3) 25 mcg (1,000 unit) tablet (Vitamin D3) 25 mcg PO MOTUWETHFRSA Supplement 07/16/23
spironolactone 25 mg tablet 25 mg PO MOWEFR PRN blood pressure-when she remembers 07/16/23
albuterol sulfate 90 mcg/actuation aerosol inhaler 2 puff inhalation R Q4HPRN PRN sob 11/13/24
ascorbic acid (vitamin C) 1,000 mg tablet (Vitamin C) 1,000 mg PO MOTUWETHFRSA Supplement 11/13/24
cyanocobalamin (vitamin B-12) 50 mcg tablet 20 mcg PO MOWEFR Supplement 11/13/24
ensifentrine 3 mg/2.5 mL suspension for nebulization (Ohtuvayre) 2.5 ml inhalation R BID Lung/Breathing Issues 11/13/24
prednisone 5 mg tablet 5 mg PO BID rheumatoid arthritis 11/13/24
Held on 04/30/25. Instructions: Resume on 05/16/25. hold until steroid taper completed
rimegepant 75 mg disintegrating tablet (Nurtec ODT) 75 mg PO DAILYPRN PRN mirgraines 12/23/24
potassium chloride 10 mEq tablet,extended release 10 meq PO MoWeFr@0800,1700 Electrolyte Repletion 02/14/25
torsemide 10 mg tablet 10 mg PO MOWEFR fluid retention #30 tabs 03/24/25
diltiazem HCl 30 mg tablet 30 mg PO HSPRN PRN blood pressure 04/13/25
diltiazem HCl 30 mg tablet (Cardizem) 30 mg PO TID Blood Pressure 04/13/25
lidocaine 4 % topical patch 1 patch topical DAILYPRN PRN right knee 04/13/25
sertraline 50 mg tablet 50 mg PO HS Mental Health/Anxiety 04/13/25
therapeutic multivitamin 1 tab PO MOWEFR Supplement 04/13/25
methylcellulose (laxative) 500 mg tablet 1,000 mg PO DAILY Constipation 04/21/25
Leflunomide 1 unit PO DIRECTED ##0 04/30/25
guaifenesin 600 mg tablet, extended release 12 hr 1,200 mg (2 x 600 mg) PO Q12 #90 tabs 04/30/25
hydromorphone 2 mg tablet (Dilaudid) 1 mg (1/2 x 2 mg) PO Q4H PRN Dyspnea #14 tabs 04/30/25
lorazepam 1 mg tablet (Ativan) 0.5 mg (1/2 x 1 mg) PO Q4HPRN PRN Anxiety #14 tabs 04/30/25
prednisone 10 mg tablet See Rx Instructions .Route .COMPLEX #60 tabs 04/30/25
Home Medication Changes
guaifenesin 600 mg tablet, extended release 12 hr 1,200 mg (2 x 600 mg) PO Q12 #90 tabs 04/30/25
hydromorphone 2 mg tablet (Dilaudid) 1 mg (1/2 x 2 mg) PO Q4H PRN Dyspnea #14 tabs 04/30/25
lorazepam 1 mg tablet (Ativan) 0.5 mg (1/2 x 1 mg) PO Q4HPRN PRN Anxiety #14 tabs 04/30/25
prednisone 10 mg tablet See Rx Instructions .Route .COMPLEX #60 tabs 04/30/25
Pending Results: No
--- NOTE | 2025-04-30 16:04 | CM ---
clinical assessment manager is following with patient along with assigned nurse outreach case manager, patient's daughter received commode it was delivered to patient's home yesterday, per patient's daughter there a still some items that patient will need, such as, over bed
table and tub transfer bench, nurse outreach case manager reached out to Karl at [facility] and they do not have these items and these items are not covered by insurance, call placement to [facility] [phone] and the are closed open tomorrow at 8:30am,
Call placed to [facility] [phone] and they do not carry these items.
Plan; To follow up with [facility] [phone] to see if they have these items
--- NOTE | 2025-04-30 17:57 | PTCARENOTE ---
Daughter to bedside this afternoon, requesting a piece of medical equipment @ home; CM to bedside to discuss w daughter and will f/u with her tomorrow about equipment request. Discharge orders received; packet completed w pt. and daughter; all
questions answered extensively. Complete hygiene provided w hair wash per pt. request prior to dressing. panel monitor and PIVs removed. Frequent emotional support provided. Pt. discharged to home w daughter and on home O2. No further
needs from this RN.
== END 2025-04-30 18:11 | disposition home health service (06) | DRG 189 ==
LOC: IMU 09:13
PROVIDERS: Emergency Medicine; Internal Medicine; Nurse Practitioner Primary Care; Student in an Organized Health Care Education/Training Program; ADMITTING PHYSICIAN Internal Medicine; ATTENDING PHYSICIAN Internal Medicine; CONSULT PHYSICIAN Student in an Organized Health Care Education/Training Program; EMERGENCY PHYSICIAN Emergency Medicine; FAMILY PHYSICIAN Family Medicine; OTHER PHYSICIAN Internal Medicine
PROC: 5A09357 Assistance with Respiratory Ventilation, Less than 24 Consecutive Hours, Continuous Positive Airway Pressure (ICD-10-PCS; 2025-04-13)
DX: J96.21 Acute and chronic respiratory failure with hypoxia (principal); J44.1 Chronic obstructive pulmonary disease with (acute) exacerbation; Z68.1 Body mass index [BMI] 19.9 or less, adult; I5A Non-ischemic myocardial injury (non-traumatic); J96.22 Acute and chronic respiratory failure with hypercapnia; Z99.81 Dependence on supplemental oxygen; D72.829 Elevated white blood cell count, unspecified; I48.0 Paroxysmal atrial fibrillation; F41.9 Anxiety disorder, unspecified; F32.A Depression, unspecified; D50.9 Iron deficiency anemia, unspecified; Z66 Do not resuscitate; M06.9 Rheumatoid arthritis, unspecified; I89.0 Lymphedema, not elsewhere classified; G43.909 Migraine, unspecified, not intractable, without status migrainosus; J43.9 Emphysema, unspecified; R63.6 Underweight; E88.A Wasting disease (syndrome) due to underlying condition; G47.00 Insomnia, unspecified; L89.152 Pressure ulcer of sacral region, stage 2; Z87.891 Personal history of nicotine dependence; Z79.52 Long term (current) use of systemic steroids; Z11.52 Encounter for screening for COVID-19
CPT/HCPCS: 71045; 80048; 80053; 82728; 82805; 82962; 83540; 83550; 83735; 83880; 84484; 85025; 85027; 85610; 85730; 86803; 87502; 87811; 92526; 92610; 93005; 94640; 94660; 96374; 97163; 97164; 97167; 97530; 99291; 99406